=== PATIENT | male | born 1990 | race Caucasian/White ===

== ENCOUNTER 2022-05-13 04:24 | Emergency (ER) | payer MEDICARE, MEDICAID, SELFPAY ==
[2022-05-13 04:31] VITALS: BP 108/64; BP 94/55; PULSE 104; PULSE 116; RESP 16; TEMP 36.8; O2SAT 95; BMI 27.6
== END 2022-05-13 14:36 | disposition left against medical advice (07) ==
LOC: HO.ED 14:00
PROVIDERS: Emergency Provider Emergency Medicine
DX: S39.92XA Unspecified injury of lower back, initial encounter (principal); Y04.8XXA Assault by other bodily force, initial encounter; Y93.9 Activity, unspecified; Y92.410 Unspecified street and highway as the place of occurrence of the external cause; Y99.9 Unspecified external cause status
CPT/HCPCS: 99281

== ENCOUNTER 2022-06-24 19:33 | Emergency (ER) | payer MEDICARE, MEDICAID, SELFPAY ==
--- NOTE | ~2022-06-24 | XR_ITS ---
EXAMINATION: XR ANKLE, RIGHT CLINICAL INFORMATION: Pain. COMPARISON: None TECHNIQUE: AP, lateral, and mortise views of the right ankle. FINDINGS: Soft tissue swelling along the lateral surface of the ankle. No osseous fractures or malalignment. No unexpected radiopaque foreign bodies. XR/XR ankle RT min 3V IMPRESSION: Nonspecific soft tissue swelling in the lateral surface of the ankle. No acute fractures or malalignment.
--- NOTE | 2022-06-24 19:55 | PC.NURSE ---
called x 3 to triage- presumed lwt.
[2022-06-24 20:38] VITALS: BP 108/66; PULSE 86; RESP 18; TEMP 36.1; O2SAT 100; BMI 25.8
--- NOTE | 2022-06-25 00:17 | ED.LOWEXIN ---
HPI - Extremity Injury (Lower) General Chief Complaint: Extremity Injury, Lower Stated Complaint: R ankle sprain, needs psych meds Time Seen by Provider: 06/24/22 22:44 Source: patient Mode of arrival: ambulatory Limitations: no limitations History of Present Illness HPI Narrative: 31-year-old male who presents emergency department for evaluation of injury to his right ankle. Patient states that yesterday he was walking and he rolled his right ankle inward ( inversion injury). He states he developed immediate pain in his right ankle. His right ankle became swollen and black and blue. Patient states he has been able to walk however he is having pain when he walks. He states the pain is a constant, sharp pain which is 8/10 at its worst. Patient states that he is homeless. He did not take any medications for the pain. MD complaint: ankle injury ( Right) Onset (ago): day(s) (1) Injury: Right: ankle Type of Injury: inversion Place: street/outdoors Severity: severe Severity scale (1-10): 8 Relieving factors: nothing Exacerbating factors: nothing Context: walking Associated symptoms: swelling Other symptoms: none Related Data Previous Rx's Medication Instructions Recorded ibuprofen 600 mg tablet 600 mg PO Q6H PRN pain #30 tabs 06/25/22 Allergies Allergy/AdvReac Type Severity Reaction Status Date / Time quetiapine [From SEROQUEL] Allergy Severe ANAPHYLAXIS Unverified 06/23/20 19:08 haloperidol [HALOPERIDOL] Allergy Intermediate SWELLING Unverified 06/23/20 19:08 chlorpromazine Allergy Unknown UNKNOWN Unverified 06/23/20 19:08 [From THORAZINE] Review of Systems Review of Systems: Yes all other systems are reviewed and are negative [facility] Past Medical History [facility] Narrative: past medical history: None. . Past surgical history: None. Social history: Patient is homeless. He denies tobacco use. He occasionally drinks alcohol. Occasionally uses marijuana. Social History Social History Advance Directives: No Physical Exam Vital Signs: Vital Signs: Last Vital Signs Temp 96.9 F 06/24/22 20:38 Pulse 86 06/24/22 20:38 Resp 18 06/24/22 20:38 BP 108/66 06/24/22 20:38 Pulse Ox 100 06/24/22 20:38 O2 Del Method 06/24/22 20:38 BMI result Body Mass Index 25.8 Const: General: cooperative and no acute distress Orientation/consciousness: oriented to person and oriented to place HEENT: Head: Yes normal to inspection, Yes normocephalic and Yes atraumatic Resp: Effort & Inspection: normal respiratory effort Neuro: General: oriented to person and oriented to place Cognition (Neuro): normal cognition Extrem: Other: The patient has ecchymosis and significant soft tissue swelling to the right ankle with increased swelling over the lateral malleolus as opposed to the medial malleolus. Patient has increased tenderness with palpation over the lateral malleolus, his extremities neurovascular intact Course Course Course Narrative: 31-year-old man who presents emergency department for evaluation of injury to his right ankle /inversion injury which occurred 1 day prior to evaluation. Patient has significant soft tissue swelling and ecchymosis to the medial and lateral aspect his ankle, with lateral being greater than medial aspect. Patient's extremities neurovascular intact. X-ray revealed no acute fracture but significant soft tissue swelling. The patient was placed in an ankle boot. He was given printed and verbal instructions. He was prescribed ibuprofen. He was advised to follow-up with orthopedics for re-evaluation. Discharge Plan Discharge Clinical Impression: Ankle sprain and strain Patient Disposition: Home, Self-Care Instructions: Ankle Sprain (ED), Walking Boot (ED) Additional Instructions: The x-ray of your right ankle revealed no broken bones /fractures. You have a severe sprain of your ankle. Wear the ankle boot for 2 weeks. Take ibuprofen 200 mg pills, 3 pills every 6 hours as needed for pain. Follow-up with the orthopedic doctor on-call in 1-2 weeks. Please return to the emergency department if your symptoms get worse or if you develop any symptoms that are concerning to you. Prescriptions: New ibuprofen 600 mg tablet 600 mg PO Q6H PRN (Reason: pain) Qty: 30 0RF Referrals: Delvin Barlow MD [Physician] - 2 weeks ( severe right ankle sprain) Interventions: LWBS Worksheet Last Done: 06/24/22 20:06
== END 2022-06-25 00:48 | disposition home or self-care (01) ==
PROVIDERS: Emergency Provider Emergency Medicine Emergency Medical Services
DX: S93.401A Sprain of unspecified ligament of right ankle, initial encounter (principal); X58.XXXA Exposure to other specified factors, initial encounter; Y93.9 Activity, unspecified; Y92.9 Unspecified place or not applicable; Y99.9 Unspecified external cause status; Z79.899 Other long term (current) drug therapy
CPT/HCPCS: 73610; 99283

== ENCOUNTER 2022-06-27 13:37 | Inpatient (IN) | payer MEDICARE, MEDICAID, SELFPAY ==
[2022-06-27 13:54] VITALS: BP 105/62; PULSE 87; RESP 16; TEMP 36.6; O2SAT 98
[2022-06-27] MEDS: Divalproex Sodium ER 500 MG TAB.ER.24H PO ×2 (15:42→21:43)
[2022-06-27] MEDS: OLANZapine 5 MG TABLET PO (15:42)
[2022-06-27] MEDS: LORazepam 1 MG TABLET PO (15:42)
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
--- NOTE | 2022-06-27 17:18 | PC.NURSE ---
Pt was admitted to M3 from [facility] [place] @ 5523. Signed CV. Pt?s intake reports noncompliance with medication, paranoia, AH/VH/HI, delusions. During assessment, pt was very slow to respond and impatient with questions, wanted to sleep. Unable to complete detailed assessment.? ??Documentation reports pt was on [place] until 06/08/22. COVID: Negative UTOX: +THC. Mood: Depressed; affect restricted, mildly agitated. Makes little eye contact. Insight appears poor. Asking to leave. Substance use: THC recent; cocaine, unsure how recent.? MedHx: Right ankle injury, swelling, ecchymosis. Unable to assess detailed medical history. Placed on high fall risk due to unknown hx. PsycheHx: Paranoid schizophrenia. Depression. Substance abuse includes cannabis and cocaine.? VS recorded at admission: 97.9, 87, 16, 105/62, 87%. ??During assessment pt is not engaged, looking at papers, very slow to respond. Due to MS, unable to complete a detailed assessment.? ??Documentation accompanying pt from [facility] indicates severe hallucinations of violent nature, including constant screaming of massacres; pt believes people are following him and his family and raping them for years. Pt appears to be RTIS. ??One-time zyprexa, depakote, and Ativan administered. ??Pt reports allergies to Haldol, Seroquel, Thorazine and Trazodone. Unable to determine whether these are preferences or actual allergies. Pt sts all allergic reactions are the same: Swollen throat.
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
[2022-06-27 20:10] VITALS: BP 101/62; PULSE 81; RESP 16; TEMP 36.7; O2SAT 98
[2022-06-27] MEDS: OLANZapine 10 MG TABLET PO (21:41)
[2022-06-27] MEDS: LORazepam 1 MG TABLET 2 MG PO (21:41)
[2022-06-28 08:00] VITALS: BP 109/72; PULSE 89; RESP 18; TEMP 36.6; O2SAT 98
[2022-06-28] MEDS: Divalproex Sodium ER 500 MG TAB.ER.24H PO ×2 (08:08→19:53)
[2022-06-28 08:58] LABS: Estimated Average Glucose 88 mg/dL; Hemoglobin A1C 115.4959 umol/L; Hemoglobin A1c % 4.7 %
[2022-06-28 09:02] LABS: Alanine Aminotransferase 28 U/L (0-40); Albumin Level 4.3 g/dL (3.5-5.0); Alkaline Phosphatase 60 U/L (39-117); Anion Gap 15 (12-20); Aspartate Amino Transferase 20 U/L (5-37); Bilirubin Direct 0.3 mg/dL (0.0-0.5); Bilirubin Total 0.5 mg/dL (0.0-1.0); Blood Urea Nitrogen 13 mg/dL (9-16); Carbon Dioxide 28 mmol/L (22-29); Chloride 101 mmol/L (96-108); Cholesterol 125 mg/dL; Estimated Glomerular Filt Rate > 60; Glucose Fasting 85 mg/dL (60-99); HDL Cholesterol 42 mg/dL; LDL Cholesterol Calculated 70 mg/dl; Potassium 4.5 mmol/L (3.3-5.1); Sodium 139 mmol/L (135-145); Total Protein 6.5 g/dL (6.5-8.0); Triglycerides 66 mg/dL
[2022-06-28 09:24] LABS: Free T4 (Free Thyroxine) 1.17 ng/dL (0.71-1.85); Thyroid Stimulating Hormone 2.32 uIU/mL (0.32-4.0)
[2022-06-28 09:38] LABS: Folate 10.4 ng/mL (> or = 4.0); Vitamin B12 408 pg/mL (200-900)
[2022-06-28] MEDS: chlorproMAZINE HCl 100 MG TABLET PO ×2 (14:31→19:53)
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
[2022-06-28] MEDS: LORazepam 1 MG TABLET 2 MG PO ×2 (17:10→19:53)
[2022-06-28] MEDS: Nicotine Polacrilex 2 MG GUM 4 MG BUCCAL ×2 (17:41→20:38)
[2022-06-29] MEDS: Nicotine Polacrilex 2 MG GUM 4 MG BUCCAL ×3 (05:30→16:06)
[2022-06-29] MEDS: chlorproMAZINE HCl 100 MG TABLET PO ×4 (05:30→20:04)
[2022-06-29] MEDS: Divalproex Sodium ER 500 MG TAB.ER.24H PO (09:22)
[2022-06-29 09:27] VITALS: BP 118/75; PULSE 112; RESP 18; TEMP 36.3; O2SAT 100
[2022-06-29] MEDS: Divalproex Sodium 250 MG TABLET.DR PO (13:45)
--- NOTE | 2022-06-29 15:23 | HO.PSYCHPN ---
Subjective Subjective Date of Service: 06/29/22 Reason For Visit: Psychosis Interim History: disorganized and hyper-verbal. willing to increase VPA to 1500 mg. no other changes. per staff, not attending groups. paranoid, nonsensical, pacing. good sleep and appetite. internally preoccupied. wants PRNs of thorazine and VPA. Mental Status Exam Mental Status Exam Narrative: mild agitation. cooperative. PMA of leaning in for emphasis, frequent positional changes. speech incr in rate, amount. nml loudness, tone. decr latency. thoughts loose, digressive, tangential. affect hyper-intense, constricted, non-labile. mood not assessed. no SI/HI/AVH expressed. Diagnostics Vital Signs (24Hr): Vital Signs - 24 hr 06/29/22 09:27 Temperature 97.4 F Pulse Rate 112 H Respiratory Rate 18 Blood Pressure 118/75 Pulse Oximetry 100 Oxygen Delivery Method Room Air Labs Results: 06/28/22 08:02 Labs: Laboratory Results - last 48 hr 06/28/22 06/28/22 06/28/22 08:02 08:02 08:02 Sodium 139 Potassium 4.5 Chloride 101 Carbon Dioxide 28 Anion Gap 15 BUN 13 Creatinine 0.83 Estim Creat Clear Calc TNP Estimated GFR > 60 Fasting Glucose 85 Estimat Average Glucose 88 Hemoglobin A1c % 4.7 Calcium 10.0 Total Bilirubin 0.5 Direct Bilirubin 0.3 AST 20 ALT 28 Alkaline Phosphatase 60 Total Protein 6.5 Albumin 4.3 Triglycerides 66 Cholesterol 125 LDL Cholesterol, Calc 70 HDL Cholesterol 42 Vitamin B12 408 Folate 10.4 TSH 2.32 Free T4 1.17 Medications Medications Current Medications Acetaminophen (Acetaminophen 325 Mg Tablet) 650 mg PO Q6H PRN PRN Reason: Headache/Pain Mild Scale (1-3) Al Hydroxide/Mg Hydroxide (Magnesium Hydrox/Alum Hydrox 30 Ml Oral.Susp) 30 ml PO Q6H PRN PRN Reason: Heartburn/Nausea Chlorpromazine HCl (Chlorpromazine Hcl 100 Mg Tablet) 100 mg PO Q6H PRN PRN Reason: agitation/severe anxiety Last Admin: 06/29/22 05:30 Dose: 100 mg Chlorpromazine HCl (Chlorpromazine Hcl 100 Mg Tablet) 100 mg PO BEDTIME OSKAR Last Admin: 06/29/22 11:26 Dose: 100 mg Divalproex Sodium (Divalproex Sodium Er 250 Mg Tab.Er.24h) 750 mg PO BID OSKAR Lorazepam (Lorazepam 1 Mg Tablet) 2 mg PO BEDTIME OSKAR Last Admin: 06/28/22 19:53 Dose: 2 mg Magnesium Hydroxide (Milk Of Magnesia 30 Ml Oral.Susp) 30 ml PO DAILY PRN PRN Reason: Constipation Nicotine Polacrilex (Nicotine Polacrilex 2 Mg Gum) 4 mg BUCCAL Q2H PRN PRN Reason: Nicotine Cravings Last Admin: 06/29/22 11:26 Dose: 4 mg Allergies Allergies Allergy/AdvReac Type Severity Reaction Status Date / Time quetiapine [From SEROQUEL] Allergy Severe ANAPHYLAXIS Unverified 06/23/20 19:08 haloperidol [HALOPERIDOL] Allergy Intermediate SWELLING Unverified 06/23/20 19:08 Assessment & Plan Assessment & Plan (1) Schizoaffective disorder: Status: Acute Code(s): F25.9 - Schizoaffective disorder, unspecified Plan pt amenable to start ativan, depakote, and zyprexa. asking for help to sleep, so the following regimen was started: ativan 2 mg QHS zyprexa 10 mg QHS depakote 500 mg BID with the understanding that depakote should be titrated up as tolerated/needed. 06/28- d/c olanzapine per pt request. start thorazine 100mg po qhs- prn thorazine 100mg q6h prn agitation. 06/29: increase VPA to 750 BID (from 500 BID). otherwise continue current mgmt. remains disorganized and hyperverbal. I spent ___20___ minutes with the patient and/or on the patient floor today, greater than?50% of which was spent counseling/coordinating care. Reason for contiued inpatient stay Substantial Risk for: inability to function and rapid decompensation
[2022-06-29] MEDS: LORazepam 1 MG TABLET PO (16:21)
[2022-06-29 18:00] VITALS: BP 102/59; PULSE 106; RESP 18; TEMP 36.6; O2SAT 98
[2022-06-29] MEDS: LORazepam 1 MG TABLET 2 MG PO (20:04)
[2022-06-29] MEDS: Divalproex Sodium ER 250 MG TAB.ER.24H 750 MG PO (20:05)
[2022-06-30] MEDS: LORazepam 1 MG TABLET PO ×2 (05:26→16:16)
--- NOTE | 2022-06-30 08:11 | P.PNPSI_ITS ---
Subjective Subjective Date of Service: 06/30/22 Reason For Visit: Psychosis Subjective Notes: Conditional Voluntary and 3 Day Healthcare Proxy: No Guardianship: No Medical Problems Affecting Mental Status: No Interim History: Patient was seen and discussed in rounds today. Records and plans were reviewed. He states that he is doing better. He has been med compliant. He had received his Abilify Maintena on 05/17 and the next dose needs to be considered. He denies any side effects. He does appear to have some response to internal stimuli. Eating and sleeping adequately. No complaints or side effects. No changes were made today. He had some questions about his Ativan ordered which was clarified. No changes were made today Medication Compliance: Yes Side effects from medications: No Review of Systems Review of Systems Yes all other systems are reviewed and are negative Mental Status Exam Mental Status Exam Narrative: In today's visit he is alert, oriented and pleasant. Speech is slightly pressured. Little eye contact. Affect is constricted and appropriate. Some paranoia has been reported and present. No SI/HI. Some delusions reported. Cognitively is intact. Judgment is mostly intact Diagnostics Vital Signs (24Hr): Vital Signs - 24 hr 06/29/22 09:27 06/29/22 18:00 06/30/22 06:00 Temperature 97.4 F 97.9 F 97.4 F Pulse Rate 112 H 106 H 120 H Respiratory Rate 18 18 18 Blood Pressure 118/75 102/59 L 112/68 Pulse Oximetry 100 98 97 Oxygen Delivery Method Room Air Room Air Room Air Labs Results: 06/28/22 08:02 Labs: Laboratory Results - last 48 hr 06/28/22 06/28/22 06/28/22 08:02 08:02 08:02 Sodium 139 Potassium 4.5 Chloride 101 Carbon Dioxide 28 Anion Gap 15 BUN 13 Creatinine 0.83 Estim Creat Clear Calc TNP Estimated GFR > 60 Fasting Glucose 85 Estimat Average Glucose 88 Hemoglobin A1c % 4.7 Calcium 10.0 Total Bilirubin 0.5 Direct Bilirubin 0.3 AST 20 ALT 28 Alkaline Phosphatase 60 Total Protein 6.5 Albumin 4.3 Triglycerides 66 Cholesterol 125 LDL Cholesterol, Calc 70 HDL Cholesterol 42 Vitamin B12 408 Folate 10.4 TSH 2.32 Free T4 1.17 Medications Medications Current Medications Acetaminophen (Acetaminophen 325 Mg Tablet) 650 mg PO Q6H PRN PRN Reason: Headache/Pain Mild Scale (1-3) Al Hydroxide/Mg Hydroxide (Magnesium Hydrox/Alum Hydrox 30 Ml Oral.Susp) 30 ml PO Q6H PRN PRN Reason: Heartburn/Nausea Chlorpromazine HCl (Chlorpromazine Hcl 100 Mg Tablet) 100 mg PO Q6H PRN PRN Reason: agitation/severe anxiety Last Admin: 06/29/22 16:06 Dose: 100 mg Chlorpromazine HCl (Chlorpromazine Hcl 100 Mg Tablet) 100 mg PO BEDTIME OSKAR Last Admin: 06/29/22 20:04 Dose: 100 mg Divalproex Sodium (Divalproex Sodium Er 250 Mg Tab.Er.24h) 750 mg PO BID [facility] Last Admin: 06/29/22 20:05 Dose: 750 mg Lorazepam (Lorazepam 1 Mg Tablet) 2 mg PO BEDTIME [facility] Last Admin: 06/29/22 20:04 Dose: 2 mg Lorazepam (Lorazepam 1 Mg Tablet) 1 mg PO Q4H PRN PRN Reason: agitation Last Admin: 06/30/22 05:26 Dose: 1 mg Magnesium Hydroxide (Milk Of Magnesia 30 Ml Oral.Susp) 30 ml PO DAILY PRN PRN Reason: Constipation Nicotine Polacrilex (Nicotine Polacrilex 2 Mg Gum) 4 mg BUCCAL Q2H PRN PRN Reason: Nicotine Cravings Last Admin: 06/29/22 16:06 Dose: 4 mg Allergies Allergies Allergy/AdvReac Type Severity Reaction Status Date / Time quetiapine [From SEROQUEL] Allergy Severe ANAPHYLAXIS Unverified 06/23/20 19:08 haloperidol [HALOPERIDOL] Allergy Intermediate SWELLING Unverified 06/23/20 19:08 Assessment & Plan Assessment & Plan (1) Schizoaffective disorder: Status: Acute Code(s): F25.9 - Schizoaffective disorder, unspecified Plan pt amenable to start ativan, depakote, and zyprexa. asking for help to sleep, so the following regimen was started: ativan 2 mg QHS zyprexa 10 mg QHS depakote 500 mg BID with the understanding that depakote should be titrated up as tolerated/needed. 06/28- d/c olanzapine per pt request. start thorazine 100mg po qhs- prn thorazine 100mg q6h prn agitation. 06/29: increase VPA to 750 BID (from 500 BID). otherwise continue current mgmt. remains disorganized and hyperverbal. 06/30: Continue current regimen and plans. I spent minutes with the patient and/or on the patient floor today, greater than?50% of which was spent counseling/coordinating care. Reason for contiued inpatient stay Substantial Risk for: med/psych decompensation
[2022-06-30 08:13] VITALS: BP 112/68; PULSE 120; RESP 18; TEMP 36.3; O2SAT 97
[2022-06-30] MEDS: Nicotine Polacrilex 2 MG GUM 4 MG BUCCAL ×3 (08:32→23:31)
[2022-06-30] MEDS: chlorproMAZINE HCl 100 MG TABLET PO ×4 (08:32→20:56)
[2022-06-30] MEDS: Divalproex Sodium ER 250 MG TAB.ER.24H 750 MG PO ×2 (08:36→20:55)
[2022-06-30] MEDS: Acetaminophen 325 MG TABLET 650 MG PO (16:16)
[2022-06-30 20:10] VITALS: BP 114/71; PULSE 103; RESP 16; TEMP 36.8; O2SAT 95
[2022-06-30] MEDS: LORazepam 1 MG TABLET 2 MG PO (20:56)
[2022-07-01] MEDS: Acetaminophen 325 MG TABLET 650 MG PO (05:49)
[2022-07-01] MEDS: chlorproMAZINE HCl 100 MG TABLET PO ×3 (05:49→21:48)
[2022-07-01] MEDS: LORazepam 1 MG TABLET PO ×2 (05:49→17:34)
[2022-07-01] MEDS: Divalproex Sodium ER 250 MG TAB.ER.24H 750 MG PO ×2 (09:05→21:01)
[2022-07-01 09:07] VITALS: BP 106/64; PULSE 105; RESP 16; TEMP 36.6; O2SAT 98
--- NOTE | 2022-07-01 09:45 | P.PNPSI_ITS ---
Subjective Subjective Date of Service: 07/01/22 Reason For Visit: Psychosis Subjective Notes: Conditional Voluntary and 3 Day Healthcare Proxy: No Guardianship: No Medical Problems Affecting Mental Status: No Interim History: Patient was seen and discussed in rounds today. Records and plans were reviewed. He has been stable and is doing better. He has been somewhat irritable at times but able to control it. Some episodes of anger. Current medications were reviewed. He denies any side effects. He also had recently injured his right ankle and has soft cast which he lost. I will put a PT consult to address that. Medication Compliance: Yes Side effects from medications: No Review of Systems Review of Systems Right ankle injury Yes all other systems are reviewed and are negative Mental Status Exam Mental Status Exam Narrative: In today's visit he is alert, oriented and pleasant. Speech is slightly pressured. Little eye contact. Affect is constricted and appropriate. Some paranoia has been reported and present. No SI/HI. Some delusions reported. Cognitively is intact. Judgment is mostly intact Diagnostics Vital Signs (24Hr): Vital Signs - 24 hr 06/30/22 20:10 07/01/22 09:07 Temperature 98.2 F 97.8 F Pulse Rate 103 H 105 H Respiratory Rate 16 16 Blood Pressure 114/71 106/64 Pulse Oximetry 95 98 Oxygen Delivery Method Room Air Room Air Labs Results: 06/28/22 08:02 Medications Medications Current Medications Acetaminophen (Acetaminophen 325 Mg Tablet) 650 mg PO Q6H PRN PRN Reason: Headache/Pain Mild Scale (1-3) Last Admin: 07/01/22 05:49 Dose: 650 mg Al Hydroxide/Mg Hydroxide (Magnesium Hydrox/Alum Hydrox 30 Ml Oral.Susp) 30 ml PO Q6H PRN PRN Reason: Heartburn/Nausea Chlorpromazine HCl (Chlorpromazine Hcl 100 Mg Tablet) 100 mg PO Q6H PRN PRN Reason: agitation/severe anxiety Last Admin: 07/01/22 05:49 Dose: 100 mg Chlorpromazine HCl (Chlorpromazine Hcl 100 Mg Tablet) 100 mg PO BEDTIME [facility] Last Admin: 06/30/22 20:56 Dose: 100 mg Divalproex Sodium (Divalproex Sodium Er 250 Mg Tab.Er.24h) 750 mg PO BID [facility] Last Admin: 07/01/22 09:05 Dose: 750 mg Lorazepam (Lorazepam 1 Mg Tablet) 2 mg PO BEDTIME [facility] Last Admin: 06/30/22 20:56 Dose: 2 mg Lorazepam (Lorazepam 1 Mg Tablet) 1 mg PO Q4H PRN PRN Reason: agitation Last Admin: 07/01/22 05:49 Dose: 1 mg Magnesium Hydroxide (Milk Of Magnesia 30 Ml Oral.Susp) 30 ml PO DAILY PRN PRN Reason: Constipation Nicotine Polacrilex (Nicotine Polacrilex 2 Mg Gum) 4 mg BUCCAL Q2H PRN PRN Reason: Nicotine Cravings Last Admin: 06/30/22 23:31 Dose: 4 mg Allergies Allergies Allergy/AdvReac Type Severity Reaction Status Date / Time quetiapine [From SEROQUEL] Allergy Severe ANAPHYLAXIS Unverified 06/23/20 19:08 haloperidol [HALOPERIDOL] Allergy Intermediate SWELLING Unverified 06/23/20 19:08 Assessment & Plan Assessment & Plan (1) Schizoaffective disorder: Status: Acute Code(s): F25.9 - Schizoaffective disorder, unspecified Plan pt amenable to start ativan, depakote, and zyprexa. asking for help to sleep, so the following regimen was started: ativan 2 mg QHS zyprexa 10 mg QHS depakote 500 mg BID with the understanding that depakote should be titrated up as tolerated/needed. 06/28- d/c olanzapine per pt request. start thorazine 100mg po qhs- prn thorazine 100mg q6h prn agitation. 06/29: increase VPA to 750 BID (from 500 BID). otherwise continue current mgmt. remains disorganized and hyperverbal. 06/30: Continue current regimen and plans. 07/01: Continue current regimen and plans. PT consult I spent minutes with the patient and/or on the patient floor today, greater than?50% of which was spent counseling/coordinating care. Reason for contiued inpatient stay Substantial Risk for: med/psych decompensation
[2022-07-01] MEDS: Nicotine Polacrilex 2 MG GUM 4 MG BUCCAL ×2 (16:40→21:48)
[2022-07-01] MEDS: LORazepam 1 MG TABLET 2 MG PO (21:01)
[2022-07-02] MEDS: LORazepam 1 MG TABLET PO ×2 (03:00→21:21)
[2022-07-02] MEDS: Divalproex Sodium ER 250 MG TAB.ER.24H 750 MG PO ×2 (08:40→21:09)
[2022-07-02 09:25] VITALS: BP 112/62; PULSE 101; RESP 14; TEMP 36.8; O2SAT 97
[2022-07-02] MEDS: Nicotine Polacrilex 2 MG GUM 4 MG BUCCAL ×2 (11:59→14:13)
--- NOTE | 2022-07-02 12:43 | P.PNPSI_ITS ---
Subjective Subjective Date of Service: 07/02/22 Reason For Visit: Psychosis Interim History: 3-day up tomorrow, planning to discharge. feels his medications are good as they are aside from getting off of ativan prior to discharge. agrees to decrease HS ativan to 1 mg tonight. agreeable to have labs drawn tomorrow as well. some c/o sleeping too much. states he is sleeping well through the night. mood good. per staff, 3-day up tomorrow. feeling well. denies AVH. RIS. wants to DC tomorrow. eating well. Mental Status Exam Mental Status Exam Narrative: calm, cooperative. no PMA/PMR. speech incr in rate, nml amount. nml loudness, tone. decr latency. thoughts more organized and topical. affect normo- intense, constricted, non-labile. mood good. no SI/HI/AVH expressed. Diagnostics Vital Signs (24Hr): Vital Signs - 24 hr 07/02/22 09:25 Temperature 98.2 F Pulse Rate 101 H Respiratory Rate 14 Blood Pressure 112/62 Pulse Oximetry 97 Oxygen Delivery Method Room Air Labs Results: 06/28/22 08:02 Medications Medications Current Medications Acetaminophen (Acetaminophen 325 Mg Tablet) 650 mg PO Q6H PRN PRN Reason: Headache/Pain Mild Scale (1-3) Last Admin: 07/01/22 05:49 Dose: 650 mg Al Hydroxide/Mg Hydroxide (Magnesium Hydrox/Alum Hydrox 30 Ml Oral.Susp) 30 ml PO Q6H PRN PRN Reason: Heartburn/Nausea Chlorpromazine HCl (Chlorpromazine Hcl 100 Mg Tablet) 100 mg PO Q6H PRN PRN Reason: agitation/severe anxiety Last Admin: 07/01/22 21:48 Dose: 100 mg Chlorpromazine HCl (Chlorpromazine Hcl 100 Mg Tablet) 100 mg PO BEDTIME [facility] Last Admin: 07/01/22 21:02 Dose: 100 mg Divalproex Sodium (Divalproex Sodium Er 250 Mg Tab.Er.24h) 750 mg PO BID [facility] Last Admin: 07/02/22 08:40 Dose: 750 mg Lorazepam (Lorazepam 1 Mg Tablet) 1 mg PO BEDTIME [facility] Lorazepam (Lorazepam 0.5 Mg Tablet) 0.5 mg PO Q4H PRN PRN Reason: agitation Magnesium Hydroxide (Milk Of Magnesia 30 Ml Oral.Susp) 30 ml PO DAILY PRN PRN Reason: Constipation Nicotine Polacrilex (Nicotine Polacrilex 2 Mg Gum) 4 mg BUCCAL Q2H PRN PRN Reason: Nicotine Cravings Last Admin: 07/02/22 11:59 Dose: 4 mg Allergies Allergies Allergy/AdvReac Type Severity Reaction Status Date / Time quetiapine [From SEROQUEL] Allergy Severe ANAPHYLAXIS Unverified 06/23/20 19:08 haloperidol [HALOPERIDOL] Allergy Intermediate SWELLING Unverified 06/23/20 1 9:08 Assessment & Plan Assessment & Plan (1) Schizoaffective disorder: Status: Acute Code(s): F25.9 - Schizoaffective disorder, unspecified Plan pt amenable to start ativan, depakote, and zyprexa. asking for help to sleep, so the following regimen was started: ativan 2 mg QHS zyprexa 10 mg QHS depakote 500 mg BID with the understanding that depakote should be titrated up as tolerated/needed. 06/28- d/c olanzapine per pt request. start thorazine 100mg po qhs- prn thorazine 100mg q6h prn agitation. 06/29: increase VPA to 750 BID (from 500 BID). otherwise continue current mgmt. remains disorganized and hyperverbal. 06/30: Continue current regimen and plans. 07/01: Continue current regimen and plans. 07/02: taper ativan prior to discharge (1 mg tonight instead of 2 mg). check labs in a.m. discharge tomorrow as 3-day notice is up and pt is not dangerous. I spent __20____ minutes with the patient and/or on the patient floor today, greater than?50% of which was spent counseling/coordinating care. Reason for contiued inpatient stay Substantial Risk for: inability to function and rapid decompensation
[2022-07-02 21:02] VITALS: BP 121/77; PULSE 104; RESP 16; TEMP 36.2; O2SAT 97
[2022-07-02] MEDS: chlorproMAZINE HCl 100 MG TABLET PO (21:21)
[2022-07-03] MEDS: Nicotine Polacrilex 2 MG GUM 4 MG BUCCAL (01:24)
[2022-07-03 08:15] VITALS: PULSE 115; RESP 18; TEMP 36.2; O2SAT 97
[2022-07-03 08:56] LABS: MANUAL DIFF FLAG NO
[2022-07-03 09:00] LABS: Basophils Absolute Auto 0.1 X10*3/uL (0.0-0.2); Basophils Percent Auto 0.6 % (0-2); Eosinophils Absolute Auto 0.3 X10*3/uL (0.0-0.4); Eosinophils Percent Auto 3.2 % (0-4); Hematocrit 45.3 % (42.0-52.0); Hemoglobin 15.5 g/dl (14.0-18.0); Imm Gran Abs Auto 0.11 X10*3/uL (0.00-0.03); Imm Gran Pct Auto 1.2 % (0.0-0.4); Lymphocytes Absolute Auto 1.9 X10*3/uL (1.2-4.9); Lymphocytes Percent Auto 20.1 % (20-40); Mean Corpuscular HGB Conc 34.2 g/dl (31.0-36.0); Mean Corpuscular Volume 90.6 fL (80.0-98.0); Mean Platelet Volume 10.4 fL (9.4-12.4); Monocytes Absolute Auto 0.9 X10*3/uL (0.1-1.2); Monocytes Percent Auto 9.2 % (2-11); Neutrophils Absolute Auto 6.2 x10*3/uL (2.0-8.3); Neutrophils Percent Auto 65.7 % (45-73); Platelet Count 210 X10*3/uL (160-400); White Blood Count 9.4 X10*3/uL (4.8-10.8)
[2022-07-03 09:25] LABS: Alanine Aminotransferase 85 U/L (0-40); Albumin Level 4.6 g/dL (3.5-5.0); Alkaline Phosphatase 69 U/L (39-117); Anion Gap 17 (12-20); Aspartate Amino Transferase 74 U/L (5-37); Bilirubin Direct 0.2 mg/dL (0.0-0.5); Bilirubin Total 0.2 mg/dL (0.0-1.0); Blood Urea Nitrogen 12 mg/dL (9-16); Calcium 10.1 mg/dL (8.4-10.2); Carbon Dioxide 28 mmol/L (22-29); Chloride 100 mmol/L (96-108); Estimated Glomerular Filt Rate > 60; Glucose Random 89 mg/dL (60-115); Potassium 4.8 mmol/L (3.3-5.1); Sodium 140 mmol/L (135-145)
[2022-07-03 09:59] LABS: Valproate 60.9 mcg/mL (50.0-100.0)
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
[2022-07-03] MEDS: Divalproex Sodium ER 250 MG TAB.ER.24H 750 MG PO (10:43)
--- NOTE | 2022-07-03 11:36 | PC.NURSE ---
Pt. discharged from unit, with belongings.He verbalized understanding of discharge meds and appointments. He denies any suicidal or homicidal ideation.
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
--- OUTSIDE RECORDS SUMMARY | 2022-07-04 13:56 | XMS_ITS | Continuity of Care Document ---
:1990 Author Organization [facility] Address [address] [place] [address]- Care Team Providers Name Role Phone Leslie Garcia MD Primary Care Physician Encounter [facility] Date(s): 03/13/22 - 03/13/22 [facility] [address] [place] [id number]- Encounter Diagnosis Homelessness (Final) - 03/13/22 Discharge Disposition: A-D/C Home Attending Physician: Bertin Mccarthy MD Admitting Physician: Bertin Mccarthy MD Referring Physician: Not on Staff, Referring MD Allergies, Adverse Reactions, Alerts Substance Reaction Severity Status Haldol Active SEROquel Active traZODone Active Immunizations Given and Recorded Vaccine Date Status Refusal Reason SARS-CoV-2 (COVID-19) mRNA BNT-162b2 vac 12/05/20 Recorde d Not Given Vaccine Date Status Refusal Reason pneumococcal 23-valent vaccine 08/10/17 Not Given P atient Refuses pneumococcal 23-valent vaccine 06/03/17 Not Given P atient Refuses pneumococcal 23-valent vaccine 01/21/17 Not Given P atient Refuses Medications Abilify Maintena 300 mg intramuscular injection, extended release = 300 mg, Intramuscular, Every 28 days, 0 Refills, Maintenance, 08/03/21 8:53:00 EDT, Partial fill upon patient request if the prescription is for a schedule II opioid drug. Start Date: 08/03/21 Status: OrderedAbilify Maintena 300 mg intramuscular injection, extended release 0 Refills, Maintenance, 01/05/21 9:52:00 EDT, Partial fill upon patient request if the prescription is for a schedule II opioid drug. Start Date: 01/05/21 Status: Orderedbenztropine 1 mg oral tablet 1 mg, 1, tablet, By Mouth, 2 times a day, Blister pack, # 14 tablet, Refills 0, Tot. Refills 0, Maintenance, 01/26/22 10:53:00 EDT, Route to Pharmacy Electronically, [facility], Partial fill upon patient request if the prescription is for a... Start Date: 01/26/22 Stop Date: 02/02/22 Status: Orderedbenztropine 1 mg oral tablet TAKE 1 TABLET BY MOUTH TWICE A DAY Start Date: 01/05/21 Status: Orderedclozapine 100 mg oral tablet 1 tablet = 100 mg, By Mouth, Daily at bedtime, 0 Refills, Maintenance, 08/03/21 8:51:00 EDT, Partialfill upon patient request if the prescription is for a schedule II opioid drug. Start Date: 08/03/21 Status: Orderedclozapine 200 mg oral tablet 2 tablet = 400 mg, take with 100 mg for 500 mg total, 0 Refills, Maintenance, 08/03/21 8:51:00 EDT, Partial fill upon patient request if the prescription is for a schedule II opioid drug. Start Date: 08/03/21 Status: Orderedclozapine 200 mg oral tablet 2.5 tablet = 500 mg, By Mouth, Daily at bedtime, Blister pack, # 17.5 tablet, 0 Refills, Maintenance, 01/26/22 10:53:00 EDT, Tablet, [facility], Partial fill upon patient request if the prescription is for a schedule II opioid drug., 180, cm... Start Date: 01/26/22 Stop Date: 02/02/22 Status: Ordereddivalproex sodium 500 mg oral enteric coated tablet = 1,000 mg, By Mouth, Daily at bedtime, Blister pack, # 14 tablet, 0 Refills, Maintenance, 01/26/22 10:53:00 EDT, Tablet, [facility], Partial fill upon patient request if the prescription is for a schedule II opioid drug., 180, cm, 01/26/22... Start Date: 01/26/22 Stop Date: 02/02/22 Status: Ordereddivalproex sodium 500 mg oral tablet, extended release 2 tablet = 1,000 mg, By Mouth, Daily at bedtime, # 30 tablet, 0 Refills, Maintenance, 01/05/21 9:52:00 EDT, ER Tablet, Partial fill upon patient request if the prescription is for a schedule II opioid drug. Start Date: 01/05/21 Status: Orderedlevothyroxine 0.025 mg oral tablet 1 tablet, By Mouth, Daily, # 30 tablet, 11 Refills, Maintenance, 03/07/21 10:59:00 EDT, [id number], 180.34, cm, 12/15/20 8:00:00 EST, Height Start Date: 03/07/21 Status: OrderedMelatonin 3 mg oral tablet 1 tablet = 3 mg, By Mouth, Daily at bedtime, # 60 tablet, 0 Refills, Maintenance, 08/03/21 8:50:00 EDT, Tablet, Partial fill upon patient request if the prescription is for a schedule II opioid drug. Start Date: 08/03/21 Status: OrderedNarcan 4 mg/0.1 mL nasal spray = 4 mg, Nares, Both, Once, # 2 each, 0 Refills, Soft Stop, 01/05/21 9:56:00 EDT, [id number],Partial fill upon patient request if the prescription is for a schedule II opioid drug., 180.34, cm,12/15/20 8:00:00 EST, Height Start Date: 01/05/21 Status: Orderedolanzapine 10 mg oral tablet 10 mg, 1, tablet, By Mouth, 2 times a day, # 60 tablet, Refills 0, Maintenance, 08/03/21 8:52:00 EDT, Partial fill upon patient request if the prescription is for a schedule II opioid drug. Start Date: 08/03/21 Status: Orderedolanzapine 10 mg oral tablet 10 mg, 1, tablet, By Mouth, Daily, Blister Pack, # 7 tablet, Refills 0, Tot. Refills 0, Maintenance,01/26/22 10:53:00 EDT, Route to Pharmacy Electronically, [facility], Partial fill upon patient request if the prescription is for a schedule... Start Date: 01/26/22 Stop Date: 02/02/22 Status: Orderedolanzapine 20 mg oral tablet 1 tablet = 20 mg, By Mouth, Daily at bedtime, # 30 tablet, 0 Refills, Maintenance, 01/05/21 9:52:00 EDT, Tablet, Partial fill upon patient request if the prescription is for a schedule II opioid drug. Start Date: 01/05/21 Status: Orderedomeprazole 20 mg oral enteric coated capsule 1 capsule = 20 mg, By Mouth, Daily, # 14 capsule, 0 Refills, Maintenance, 08/22/21 23:09:00 EST, EC Capsule, [facility], Partial fill upon patient request if the prescription is for a schedule II opioid drug., 180.34, cm, 08/03/21 8:11:00 ED... Start Date: 08/22/21 Stop Date: 09/05/21 Status: Orderedpropranolol 10 mg oral tablet 10 mg, 1, tablet, By Mouth, 2 times a day, take twice daily for 1 month then stop propanolol completely, # 60 tablet, Refills 0, Tot. Refills 0, Maintenance, 08/18/21 11:51:00 EST, Route to Pharmacy Electronically, [facility], Partial fill u... Start Date: 08/18/21 Status: Ordered Problem List Condition Effective Dates Status Health Status Informant Antisocial personality Active features(Confirmed) Cannabis dependence with current Active use(Confirmed) Cocaine use disorder(Confirmed) Active Hypothyroid(Confirmed) Active Lives in fdc - Active [facility](Confirmed) Violent behavior(Confirmed) Active Vital Signs Most recent to oldest [Reference Range]: 1 2 Oxygen Saturation [94-100 %] 96 % 94 % (03/13/22 4:35 AM) (03/13/22 12:56 AM) Pulse Rate [55-90 bpm] 72 bpm 66 bpm (03/13/22 4:35 AM) (03/13/22 12:56 AM) Blood Pressure [90-138/55-84 mm Hg] 112/60 mm Hg 109/ 54 mm Hg (03/13/22 4:35 AM) (03/13/22 12:56 AM) Respiratory Rate [16-30 br/min] 16 br/min 16 br/mi n (03/13/22 4:35 AM) (03/13/22 12:56 AM) Temperature [96.8-100.4 DegF] 98.0 DegF 97.6 DegF (03/13/22 4:35 AM) (03/13/22 12:56 AM) Mode of Delivery (Oxygen) Room air Room air (03/13/22 4:35 AM) (03/13/22 12:56 AM) Blood pressure sites Arm, left (03/13/22 12:56 AM) Temperature Route Oral Oral (03/13/22 4:35 AM) (03/13/22 12:56 AM) Social History Social History Type Response Tobacco Other: 2-3 cigarettes per da y. Type: Cigarettes. Sex Male
--- OUTSIDE RECORDS SUMMARY | 2022-07-04 13:56 | XMS_ITS | Continuity of Care Document ---
:1990 Author Organization [facility] Address [address] [place] [address]- Care Team Providers Name Role Phone Bloom Rose YAÑEZ Primary Care Physician En[place] [facility] Date(s): 06/25/22 - 06/27/[address] [address]- Discharge Disposition: Transfer to [facility] Facility Attending Physician: Aly Ward MD Admitting Physician: Aly Ward MD Referring Physician: Not on Staff, Referring [...] 01/21/17 Not Given P atient Refuses Medications levothyroxine 0.025 mg oral tablet 1 tablet = 25 mcg, By Mouth, Daily, # 30 tablet, 0 Refills, Maintenance, 06/18/22 14:24:00 EDT, Tablet, [id number], Partial fill upon patient request if the prescription is for a schedule II opioid drug., 175, cm, 06/07/22 19:36:00 EDT, Height... Start Date: 06/18/22 Status: Orderedolanzapine 10 mg oral tablet 10 mg, 1, tablet, By Mouth, Daily at bedtime, # 30 tablet, Refills 0, Tot. Refills 0, Maintenance, 05/31/22 12:15:00 EDT, Route to Pharmacy Electronically, [facility], Partial fill upon patient request if the prescription is for a schedu... Start Date: 05/31/22 Status: Orderedolanzapine 5 mg oral tablet See Instructions, 1 tablet By Mouth Daily in the morning, 2 tablets daily before bedtime, # 90 tablet, Refills 0, Tot. Refills 0, Maintenance, 06/18/22 14:24:00 EDT, Instructions Replace Required Details, Route to Pharmacy Electronically, [facility]/pharmacy... Start Date: 06/18/22 Status: Ordered Problem List Condition Effective Dates Status Health Status Informant Antisocial personality Active features(Confirmed) Cannabis dependence with current Active use(Confirmed) Cocaine use disorder(Confirmed) Active Hypothyroid(Confirmed) Active Lives in penitentiary - Active [facility](Confirmed) Violent behavior(Confirmed) Active Results Radiology Reports Exam Date Time Procedure Performing Provider Status 06/25/22 9:10 PM Ankle Min 3 Views Right Johnny Walker; Auth (V erified) Notes:(Ankle Min 3 Views Right) Reason For Exam: PainRESULT: Ankle Min 3 Views Right Right ankle 3 views Hx of Present Illness: R ankle pain discoloration post injury 2 days ago continues, [facility]ast [facility] today. No additional injury; COMPARISON: None. FINDINGS: No evidence of acute or healing fracture or bone lesion. Intact ankle mortise and talar dome. No arthritic changes. Normal soft tissues. IMPRESSION: Normal. WSN: [id number] Ordering Physician: Aly Ward Dictated By: Diaz Delgado MD Dictated Date/Time: 06/25/22 9:27 pm Reviewed By: Diaz Delgado MD Signed By: Diaz Delgado MD Signed Date/Time: 06/25/22 9:27 pm Transcribed By: ASTON Transcribed Date/Time: 06/25/22 9:25 pm Vital Signs Most recent to oldest 1 2 3 [Reference Range]: Height 175 cm (06/25/22 7:40 PM) Weight 73.8 kg (06/25/22 7:40 PM) Oxygen Saturation [94-100 %] 98 % 97 % 97 % (06/27/22 9:17 AM) (06/26/22 8:49 AM) (06/26/22 2:3 4 AM) Pulse Rate [55-90 bpm] 104 bpm 73 bpm 83 bpm *H* (06/26/22 8:49 AM) (06/26/22 2:34 AM) (06/27/22 9:17 AM) Blood Pressure [90-138/55-84 mm 111/80 mm Hg 108/55 mm Hg 102/59 mm Hg Hg] (06/27/22 9:17 AM) (06/26/22 8:49 AM) (06/26/22 2:3 4 AM) Respiratory Rate [16-30 br/min] 18 br/min 16 br/min 16 br/min (06/27/22 9:17 AM) (06/27/22 6:06 AM) (06/26/22 8:4 9 AM) Temperature [96.8-100.4 DegF] 97.6 DegF 98.6 DegF 97 DegF (06/27/22 9:17 AM) (06/26/22 8:49 AM) (06/26/22 2:3 4 AM) Mode of Delivery (Oxygen) Room air Room air Room a ir (06/27/22 9:17 AM) (06/26/22 8:49 AM) (06/26/22 2:3 4 AM) Temperature Route Temporal Temporal Oral (06/27/22 9:17 AM) (06/26/22 8:49 AM) (06/26/22 2:0 0 AM) Dry Weight 73.8 kg (06/25/22 7:40 PM) Weight Obtained Via Standing scale (06/25/22 7:40 PM) Social History Social History Type Response Tobacco Other: 2-3 cigarettes per da y. Type: Cigarettes. Sex XR Ankle - right GE 3 Views BHSPowerscribe , CIS S: TRANSCRIBE Danny SAVAGE, Diaz: VERIFY Event Display: Result: Authored Date: Right ankle 3 views Hx of Present Illness: R ankle pain discoloration post injury 2 days ago continues, aircast providedat [facility] today. No additional injury; COMPARISON: None. FINDINGS: No evidence of acute or healing fracture or bone lesion. Intact ankle mortise and talar dome. No arthritic changes. Normal soft tissues. IMPRESSION: Normal. WSN: [id number] Ordering Physician: Aly Ward By: Diaz Delgado MD Dictated Date/Time: 06/25/22 9:27 pm Reviewed By: Diaz Delgado MD Signed By: Diaz Delgado MD Signed Date/Time: 06/25/22 9:27 pm Transcribed By: ASTON Transcribed Date/Time: 06/25/22 9:25 pm Care Team PersonnelName: Rose Bloom DO Address: [address] [place] [address]
--- OUTSIDE RECORDS SUMMARY | 2022-07-04 13:56 | XMS_ITS | Continuity of Care Document ---
:1990 Author Organization [facility] Address [address] [place] [address]- Care Team Providers Name Role Phone Vivien Flores DO Primary Care [id number] Date[facility] 12[facility]24/[facility] - 12/24/[address] [address]- Discharge Disposition: A-D/C Home Attending Physician: Linda Colin MD Admitting Physician: Linda Colin MD Referring Physician: Not on Staff, Referring MD Allergies, Adverse Reactions, Alerts Substance Reaction Severity Status Haldol Active traZODone Active SEROquel Active Immunizations Not Given Vaccine Date Status Refusal Reason pneumococcal 23-valent vaccine 08/10/17 Not Given P atient Refuses pneumococcal 23-valent vaccine 06/03/17 Not Given P atient Refuses pneumococcal 23-valent vaccine 01/21/17 Not Given P atient Refuses Medications Ativan 1 mg oral tablet = 1 mg, By Mouth, Every 6 hours, PRN Agitation, Agitation regimen: Please give in combo with Thorazine, 0 Refills, Maintenance, 08/11/17 20:53:00, Tablet Start Date: 08/11/17 Status: OrderedchlorproMAZINE 100 mg oral tablet = 100 mg, By Mouth, 3 times a day, 0 Refills, Maintenance, 08/11/17 20:52:14, Tablet Start Date: 08/11/17 Status: OrderedchlorproMAZINE 100 mg oral tablet = 100 mg, By Mouth, 3 times a day, PRN Agitation, Agitation regimen: Please give in combo with Ativan, 0 Refills, Maintenance, 08/11/17 20:52:24, Tablet Start Date: 08/11/17 Status: Ordereddivalproex sodium 500 mg oral tablet, extended release = 1,500 mg, By Mouth, Daily at bedtime, 0 Refills, Maintenance, 08/11/17 20:52:44, ER Tablet Start Date: 08/11/17 Status: Orderedibuprofen 400 mg oral tablet 400 mg, By Mouth, 3 times a day, PRN, Refills 0, Maintenance, Pain , Mild, 08/11/17 20:52:47 Start Date: 08/11/17 Status: OrderedNicotine Gum 2 mg, Chew, Every hour, PRN, cigarette craving, Refills 0, Maintenance, Other, 08/11/17 20:53:06 Start Date: 08/11/17 Status: OrderedOrajel 10% Gel 1, applicator, Topically, Every 4 hours, PRN, Refills 0, Maintenance, Pain , Mild, 08/11/17 20:52:42, Gel Start Date: 08/11/17 Status: Orderedpaliperidone 234 mg/1.5 mL intramuscular suspension, extended release = 234 mg, Intramuscular, Every 28 days, due 08/29/2017, 0 Refills, Maintenance, 08/11/17 20:49:55 Start Date: 08/11/17 Status: Ordered Problem List Condition Effective Dates Status Health Status Informant Antisocial personality Active features(Confirmed) Cannabis dependence with current Active use(Confirmed) Cocaine use disorder(Confirmed) Active Lives in [facility] - Active [facility](Confirmed) Violent behavior(Confirmed) Active Vital Signs Most recent to oldest 1 2 3 [Reference Range]: Oxygen Saturation [94-100 %] 97 % 97 % 96 % (12/24/20 2:14 PM) (12/24/20 12:41 PM) (12/24/20 11 :12 AM) Pulse Rate [55-90 bpm] 106 bpm 98 bpm 103 bpm *H* *H* *H* (12/24/20 2:14 PM) (12/24/20 12:41 PM) (12/24/20 11 :12 AM) Blood Pressure [90-138/55-84 121/74 mm Hg 103/62 mm Hg 105 /59 mm Hg mm Hg] (12/24/20 2:14 PM) (12/24/20 12:41 PM) (12/24/20 11 :12 AM) Respiratory Rate [16-30 18 br/min 18 br/min 18 br/mi n br/min] (12/24/20 2:14 PM) (12/24/20 12:41 PM) (12/24/20 11 :12 AM) Temperature [96.8-100.4 DegF] 98.5 DegF (12/24/20 9:12 AM) Mode of Delivery (Oxygen) Room air Room air Room a ir (12/24/20 2:14 PM) (12/24/20 12:41 PM) (12/24/20 11 :12 AM) Blood pressure sites Arm, left Arm, left Arm, left (12/24/20 2:14 PM) (12/24/20 12:41 PM) (12/24/20 11 :12 AM) Temperature Route Oral (12/24/20 9:12 AM) Social History Social History Type Response Tobacco Other: 2-3 cigarettes per da y. Type: Cigarettes. Sex Male
--- OUTSIDE RECORDS SUMMARY | 2022-07-04 13:56 | XMS_ITS | Continuity of Care Document ---
:1990 Author Organization [facility] Address [address] [place] [address]- Care Team Providers Name Role Phone Rose Bloom DO Primary Care Physician Encounter [facility] Date(s): 05/19/22 - 05/31/22 [facility] [address] [place] [id number] Discharge Disposition: A-D/C Home Attending Physician: Verito Avendano DO Admitting Physician: Junior Jones MD Referring Physician: Junior Jones MD Allergies, Adverse Reactions, Alerts Substance Reaction [...] Medications levothyroxine 0.025 mg oral tablet 1 tablet, By Mouth, Daily, # 30 tablet, 0 Refills, Maintenance, 05/31/22 12:15:00 EDT, [facility], 170, cm, 05/31/22 11:43:00 EDT, Height, 71.6, kg, 05/18/22 13:23:00 EDT, Dry Weight Start Date: 05/31/22 Status: Orderedolanzapine 10 mg oral tablet 10 mg, 1, tablet, By Mouth, Daily at bedtime, # 30 tablet, Refills 0, Tot. Refills 0, Maintenance, 05/31/22 12:15:00 EDT, Route to Pharmacy Electronically, [facility], Partial fill upon patient request if the prescription is for a schedu... Start Date: 05/31/22 Status: Orderedolanzapine 5 mg oral tablet 5 mg, 1, tablet, By Mouth, Daily in AM, # 30 tablet, Refills 0, Tot. Refills 0, Maintenance, 05/31/22 12:15:00 EDT, Route to Pharmacy Electronically, [facility], Partial fill upon patientrequest if the prescription is for a schedule II... Start Date: 05/31/22 Status: Ordered Problem List Condition Effective Dates Status Health Status Informant Antisocial personality Active features(Confirmed) Cannabis dependence with current Active use(Confirmed) Cocaine use disorder(Confirmed) Active Hypothyroid(Confirmed) Active Lives in [facility]dc - Active [facility](Confirmed) Violent behavior(Confirmed) Active Vital Signs Most recent to oldest 1 2 3 [Reference Range]: Height 170 cm 170 cm 170 cm (05/31/22 11:43 AM) (05/31/22 6:00 AM) (05/31/22 12 :00 AM) Weight 74.1 kg (05/19/22 3:00 PM) Oxygen Saturation [94-100 %] 97 % 99 % 98 % (05/31/22 11:43 AM) (05/31/22 6:00 AM) (05/31/22 12 :00 AM) Pulse Rate [55-90 bpm] 85 bpm 76 bpm 87 bpm (05/31/22 11:43 AM) (05/31/22 6:00 AM) (05/31/22 12 :00 AM) Blood Pressure [90-138/55-84 97/58 mm Hg 105/55 mm Hg 117 /75 mm Hg mm Hg] (05/31/22 11:43 AM) (05/31/22 6:00 AM) (05/31/22 12 :00 AM) Respiratory Rate [16-30 14 br/min 18 br/min 18 br/mi n br/min] *L* (05/31/22 6:00 AM) (05/31/22 12:00 AM) (05/31/22 11:43 AM) Temperature [96.8-100.4 DegF] 98.7 DegF 97.6 DegF 98 .2 DegF (05/31/22 11:43 AM) (8/25/22 6:00 AM) (05/31/22 12 :00 AM) Liters per Minute 4 L/min (05/19/22 6:40 PM) Mode of Delivery (Oxygen) Room air Room air Room a ir (05/31/22 11:43 AM) (05/31/22 6:00 AM) (05/31/22 12 :00 AM) Blood pressure sites Arm, left Arm, left Arm, left (05/31/22 11:43 AM) (05/31/22 6:00 AM) (05/31/22 12 :00 AM) Temperature Route Oral Oral Axillary (05/31/22 11:43 AM) (05/31/22 6:00 AM) (05/31/22 12 :00 AM) Weight Obtained Via Bed scale (05/19/22 3:00 PM) Social History Social History Type Response Tobacco Other: 2-3 cigarettes per da y. Type: Cigarettes. Sex Male Care Team PersonnelName: Rose Bloom DO Address: [address] [place] [address] [place], [place] [id number] [place] [address]
--- OUTSIDE RECORDS SUMMARY | 2022-07-04 13:57 | XMS_ITS | Continuity of Care Document ---
:[address] [facility] Address [address] [place] [address]- Care Team Providers Name Role Phone Vivien Flores DO Primary Care Physician Encounter [facility] Date(s): 03/07/21 - 04/06/21 [facility] [address] [place] [address]- Allergies, Adverse Reactions, Alerts Substance Reaction Severity [...] tablet, 11 Refills, Maintenance, 03/07/21 10:59:00 EDT, [id number], 180.34, cm, 12/15/20 8:00:00 EST, Height Start Date: 03/07/21 Status: OrderedNarcan 4 mg/0.1 mL nasal spray = 4 mg, Nares, Both, Once, # 2 each, 0 Refills, Soft Stop, 01/05/21 9:56:00 EDT, [facility]acy #[id number],Partial fill upon patient request if [...] Refills, Maintenance, 01/05/21 9:58:00 EDT, EC Capsule, [id number], Partial fill upon patient request if the prescription is for a schedule II opioid drug., 180.34, cm, 12/15/20 8:00:00 EST,... Start Date: 01/05/21 Status: Orderedpropranolol 40 mg oral tablet 40 mg, 1, tablet, By Mouth, 2 times a day, # 60 tablet, Refills 11, Tot. Refills 11, Maintenance, 01/05/21 9:57:00 EDT, Route to Pharmacy Electronically, [facility] #[id number], Partial fill upon patient request if the prescription is for a schedule II op... Start Date: 01/05/21 Status: Ordered Problem List Condition Effective Dates Status Health Status Informant Antisocial personality Active features(Confirmed) Cannabis dependence with current Active use(Confirmed) Cocaine use disorder(Confirmed) Active Hypothyroid(Confirmed) Active Lives in retirement - Active [facility](Confirmed) Violent behavior(Confirmed) Active Social History Social History Type Response Tobacco Other: 2-3 cigarettes per da y. Type: Cigarettes. Sex Male
--- OUTSIDE RECORDS SUMMARY | 2022-07-04 13:57 | XMS_ITS | Continuity of Care Document ---
:[address] [facility] Address [address] [place] [address]- Care Team Providers Name Role Phone Jose SAVAGE, Leslie Primary Care Physician Encounter [facility] Date(s): 09/19/21 - 10/28/21 [facility] [address] [place] [address]- Attending Physician: Vivien Flores DO Admitting Physician: Vivien Flores DO Allergies, Adverse Reactions, Alerts Substance Reaction Severity [...] II opioid drug. Start Date: 08/03/21 Status: Ordereddivalproex sodium 500 mg oral tablet, [...] tablet, 11 Refills, Maintenance, 03/07/21 10:59:00 EDT, [facility], 180.34, cm, 12/15/20 8:00:00 EST, Height Start [...] 0 Refills, Soft Stop, 01/05/21 9:56:00 EDT, [facility]/pharmacy #[id number],Partial fill upon patient request if the [...] opioid drug. Start Date: 08/03/21 Status: Orderedolanzapine 20 mg oral tablet 1 [...] Refills, Maintenance, 08/22/21 23:09:00 EST, EC Capsule, [facility], Partial fill upon patient request if [...] 08/18/21 11:51:00 EST, Route to Pharmacy Electronically, [facility], Partial fill u... Start Date: 08/18/21 Status: Ordered Problem List Condition Effective Dates Status Health Status Informant Antisocial personality Active features(Confirmed) Cannabis dependence with current Active use(Confirmed) Cocaine use disorder(Confirmed) Active Hypothyroid(Confirmed) Active Lives in [facility] - Active [facility](Confirmed) Violent behavior(Confirmed) Active Social History Social History Type Response Tobacco Other: 2-3 cigarettes per da y. Type: Cigarettes. Sex Male
--- OUTSIDE RECORDS SUMMARY | 2022-07-04 13:57 | XMS_ITS | Continuity of Care Document ---
:1990 Author Organization [facility] Address [address] [place] [address]- Care Team Providers Name Role Phone Merle Rose YAÑEZ Primary Care Physician Encounter [facility] Date(s): 05/18/22 - 06/29/22 [facility] [address] [place] [address]- Attending Physician: Mario Velasquez MD Admitting Physician: Mario Velasquez MD Allergies, Adverse Reactions, Alerts Substance Reaction [...] 05/31/22 12:15:00 EDT, Route to Pharmacy Electronically, [facility], Partial fill upon patient request if the prescription is for a schedu... Start Date: 05/31/22 Status: Orderedolanzapine 5 mg oral tablet See Instructions, 1 tablet By Mouth Daily in the morning, 2 tablets daily before bedtime, # 90 tablet, Refills 0, Tot. Refills 0, Maintenance, 06/18/22 14:24:00 EDT, Instructions Replace Required Details, Route to [facility]acy [facility]ically, [facility] Start Date: 06/18/22 Status: Ordered Problem List Condition Effective Dates Status Health Status Informant Antisocial personality Active features(Confirmed) Cannabis dependence with current Active use(Confirmed) Cocaine use disorder(Confirmed) Active Hypothyroid(Confirmed) Active Lives in correction - Active [facility](Confirmed) Violent behavior(Confirmed) Active Social History Social History Type Response Tobacco Other: 2-3 cigarettes per da y. Type: Cigarettes. Sex Care Team PersonnelName: Rose Bloom DO Address: [address] [place] [address] Adult [address]
--- OUTSIDE RECORDS SUMMARY | 2022-07-04 13:57 | XMS_ITS | Continuity of Care Document ---
:1990 Author Organization [facility] Address [address] [place] [address]- Care Team Providers Name Role Phone Not on Staff, PCP Primary Care Physician Unavailable Encounter [facility] [place] Date(s): 05/23/20 - 05/24/20 [facility] [address] [place] [address]- [facility] Encounter Diagnosis Sinus tachycardia (Final) - 05/24/20 Bipolar disorder (Final) - 05/24/20 Discharge Disposition: A-Transfer SNF Attending Physician: Nehemiah Cintron MD Admitting Physician: Nehemiah Cintron MD Referring Physician: Not on Staff, Referring [...] 08/11/17 20:49:55 Start Date: 08/11/17 Status: Ordered Vital Signs Most recent to oldest 1 2 3 [Reference Range]: Oxygen Saturation [94-100 %] 100 % 98 % 98 % (05/24/20 6:09 AM) (05/24/20 4:02 AM) (05/24/20 2:3 3 AM) Pulse Rate [55-90 bpm] 113 bpm 107 bpm 129 bpm *H* *H* *H* (05/24/20 6:09 AM) (05/24/20 4:02 AM) (05/24/20 2:3 3 AM) Blood Pressure [90-138/55-84 mm 120/85 mm Hg 127/74 mm Hg 116/65 mm Hg Hg] (05/24/20 6:09 AM) (05/24/20 4:02 AM) (05/24/20 2:3 3 AM) Respiratory Rate [16-30 br/min] 18 br/min 20 br/min 18 br/min (05/24/20 6:09 AM) (05/24/20 4:02 AM) (05/24/20 2:3 3 AM) Temperature [96.8-100.4 DegF] 97.9 DegF 98.0 DegF 98 .0 DegF (05/24/20 6:09 AM) (05/24/20 4:02 AM) (05/24/20 2:3 3 AM) Mode of Delivery (Oxygen) Room air Room air Room a ir (05/24/20 6:09 AM) (05/24/20 4:02 AM) (05/24/20 2:3 3 AM) Blood pressure sites Arm, left Arm, left Arm, left (05/24/20 6:09 AM) (05/24/20 4:02 AM) (05/24/20 2:3 3 AM) Temperature Route Oral Oral Oral (05/24/20 6:09 AM) (05/24/20 4:02 AM) (05/24/20 2:3 3 AM) Social History Social History Type Response Smoking Status Current every day smoker; Ty pe: Cigarettes; Tobacco use times per day: 10 cigarettes per day; entered on: 04/27/16 Sex
--- OUTSIDE RECORDS SUMMARY | 2022-07-04 13:57 | XMS_ITS | Continuity of Care Document ---
:1990 Author Organization [facility] Address [address] [place] [address]- Care Team Providers Name Role Phone Vivien Flores DO Primary Care Physician Encounter [facility] Date(s): 01/05/21 - 02/04/21 [facility] [address] [place], [place] [address] Attending Physician: Rose Collazo Admitting Physician: AdmtrRose Referring Physician: AdmtrRose Allergies, Adverse Reactions, Alerts Substance Reaction Severity [...] 0 Refills, Maintenance, 01/31/21 18:34:00 EDT, Tablet, [facility]/pharmacy #[id number], Partial fill upon patient request if the prescription is for a schedule II opioid drug., 180.34, cm, 12/15/20 8:00:00 EST, Height Start Date: 01/31/21 Stop Date: 03/02/21 Status: OrderedNarcan 4 mg/0.1 mL nasal spray = 4 mg, Nares, Both, Once, # 2 each, 0 Refills, Soft Stop, 01/05/21 9:56:00 EDT, [facility]/pharmacy #[id number],Partial fill upon patient request if the [...] Refills, Maintenance, 01/05/21 9:58:00 EDT, EC Capsule, [facility]/pharmacy #[id number], Partial fill upon patient request if the prescription is for a schedule II opioid drug., 180.34, cm, 12/15/20 8:00:00 EST,... Start Date: 01/05/21 Status: Orderedpropranolol 40 mg oral tablet 40 mg, 1, tablet, By Mouth, 2 times a day, # 60 tablet, Refills 11, Tot. Refills 11, Maintenance, 01/05/21 9:57:00 EDT, Route to Pharmacy Electronically, [facility]/pharmacy #[id number], Partial fill upon patient request if the prescription is for a schedule II op... Start Date: 01/05/21 Status: Ordered Problem List Condition Effective Dates Status Health Status Informant Antisocial personality Active features(Confirmed) Cannabis dependence with current Active use(Confirmed) Cocaine use disorder(Confirmed) Active Hypothyroid(Confirmed) Active Lives in skilled nursing - Active [facility](Confirmed) Violent behavior(Confirmed) Active Social History Social History Type Response Tobacco Other: 2-3 cigarettes per da y. Type: Cigarettes. Sex Male
--- OUTSIDE RECORDS SUMMARY | 2022-07-04 13:57 | XMS_ITS | Continuity of Care Document ---
:1990 Author Organization [facility] Address [address] [place] [address]- Care Team Providers Name Role Phone Bloom Rose YAÑEZ Primary Care Physician Encounter [facility] Date(s): 06/08/22 - 06/18/[address] [address]- Encounter Diagnosis Psychosis (Final) - 06/08/22 Discharge Disposition: A-D/C Home Attending Physician: Jaden Bella MD Admitting Physician: Jaden Bella MD Referring Physician: Not on Staff, Referring [...] tablet, 0 Refills, Maintenance, 05/31/22 12:15:00 EDT, [facility], 170, cm, 05/31/22 11:43:00 EDT, Height, 71.6, kg, 05/18/22 13:23:00 EDT, Dry Weight Start Date: 05/31/22 Status: Orderedlevothyroxine 0.025 mg oral tablet 1 tablet = 25 mcg, By Mouth, Daily, # 30 tablet, 0 Refills, Maintenance, 06/18/22 14:24:00 EDT, Tablet, [facility]/pharmacy #[id number], Partial fill upon patient request if the prescription is for a schedule II opioid drug., 175, cm, 06/07/22 19:36:00 EDT, Height... Start Date: 06/18/22 Status: Orderedolanzapine 10 mg oral tablet 10 mg, 1, tablet, By Mouth, Daily at bedtime, # 30 tablet, Refills 0, Tot. Refills 0, Maintenance, 05/31/22 12:15:00 EDT, Route to Pharmacy Electronically, [facility], Partial fill upon patient request if the prescription is for a schedu... Start Date: 05/31/22 Status: Orderedolanzapine 5 mg oral tablet 5 mg, 1, tablet, By Mouth, Daily in AM, # 30 tablet, Refills 0, Tot. Refills 0, Maintenance, 05/31/22 12:15:00 EDT, Route to Pharmacy Electronically, [facility], Partial fill upon patientrequest if the prescription is for a schedule II... Start Date: 05/31/22 Status: Orderedolanzapine 5 mg oral tablet See Instructions, 1 tablet By Mouth Daily in the morning, 2 tablets daily before bedtime, # 90 tablet, Refills 0, Tot. Refills 0, Maintenance, 06/18/22 14:24:00 EDT, Instructions Replace Required Details, Route to Pharmacy Electronically, [facility]/pharmacy... Start Date: 06/18/22 Status: Ordered Problem List Condition Effective Dates Status Health Status Informant Antisocial personality Active features(Confirmed) Cannabis dependence with current Active use(Confirmed) Cocaine use disorder(Confirmed) Active Hypothyroid(Confirmed) Active Lives in care home - Active [facility](Confirmed) Violent behavior(Confirmed) Active Vital Signs Most recent to oldest 1 2 3 [Reference Range]: Oxygen Saturation [94-100 %] 100 % 99 % 100 % (06/18/22 2:14 PM) (06/17/22 11:35 PM) (06/17/22 3: 21 PM) Pulse Rate [55-90 bpm] 79 bpm 88 bpm 90 bpm (06/18/22 2:14 PM) (06/17/22 11:35 PM) (06/17/22 3: 21 PM) Blood Pressure [90-138/55-84 115/72 mm Hg 112/82 mm Hg 114 /85 mm Hg mm Hg] (06/18/22 2:14 PM) (06/17/22 11:35 PM) (06/17/22 3: 21 PM) Respiratory Rate [16-30 16 br/min 18 br/min 17 br/mi n br/min] (06/18/22 2:14 PM) (06/17/22 11:35 PM) (06/17/22 3: 21 PM) Temperature [96.8-100.4 DegF] 98.5 DegF 98.1 DegF 98 DegF (06/18/22 2:14 PM) (06/17/22 11:35 PM) (06/17/22 3: 21 PM) Mode of Delivery (Oxygen) Room air Room air Room a ir (06/18/22 2:14 PM) (06/17/22 11:35 PM) (06/17/22 3: 21 PM) Blood pressure sites Arm, right Arm, right Arm, right (06/18/22 2:14 PM) (06/17/22 11:35 PM) (06/17/22 3: 21 PM) Temperature Route Oral Oral Oral (06/18/22 2:14 PM) (06/17/22 11:35 PM) (06/17/22 3: 21 PM) Social History Social History Type Response Tobacco Other: 2-3 cigarettes per da y. Type: Cigarettes. Sex Care Team PersonnelName: Rose Bloom DO Address: [address] [place] [address] Adult [place], [address]
--- OUTSIDE RECORDS SUMMARY | 2022-07-04 13:57 | XMS_ITS | Continuity of Care Document ---
:1990 Author Organization [facility] Address [address] [place] [address]- Care Team Providers Name Role Phone Jose SAVAGE, Leslie Primary Care Physician Encounter [facility] Date(s): 02/26/22 - 04/13/22 [facility] [address] [place] [address]- Attending Physician: Mario Velasquez MD Admitting Physician: [...] 01/26/22 10:53:00 EDT, Route to Pharmacy Electronically, [facility], Partial fill upon patient request if [...] 0 Refills, Maintenance, 01/26/22 10:53:00 EDT, Tablet, [facility], Partial fill upon patient request if the prescription is for a schedule II opioid drug., 180, cm... Start Date: 01/26/22 Stop Date: 02/02/22 Status: Ordereddivalproex sodium 500 mg oral enteric coated tablet = 1,000 mg, By Mouth, Daily at bedtime, Blister pack, # 14 tablet, 0 Refills, Maintenance, 01/26/22 10:53:00 EDT, Tablet, [facility], Partial fill upon patient request if [...] tablet, 11 Refills, Maintenance, 03/07/21 10:59:00 EDT, [id number], 180.34, cm, 12/15/20 8:00:00 EST, Height Start [...] 0 Refills, Soft Stop, 01/05/21 9:56:00 EDT, [facility]/pharmacy #[id number],Partial fill upon patient request if [...] Maintenance,01/26/22 10:53:00 EDT, Route to Pharmacy Electronically, [facility], Partial fill upon patient request if [...] Refills, Maintenance, 08/22/21 23:09:00 EST, EC Capsule, [facility], Partial fill upon patient request if [...] 08/18/21 11:51:00 EST, Route to Pharmacy Electronically, [facility], Partial fill u... Start Date: 08/18/21 Status: Ordered Problem List Condition Effective Dates Status Health Status Informant Antisocial personality Active features(Confirmed) Cannabis dependence with current Active use(Confirmed) Cocaine use disorder(Confirmed) Active Hypothyroid(Confirmed) Active Lives in jail - Active [facility](Confirmed) Violent behavior(Confirmed) Active Social History Social History Type Response Tobacco Other: 2-3 cigarettes per da y. Type: Cigarettes. Sex Male
--- OUTSIDE RECORDS SUMMARY | 2022-07-04 13:57 | XMS_ITS | Continuity of Care Document ---
:1990 Author Organization [facility] Address [address] [place] [address]- Care Team Providers Name Role Phone Rose Bloom DO Leyla Primary Care Physician Encounter [facility] ACCT R [id number] Date(s): 04/17/22 - 04/17/22 [facility] [address] [place] [address]- Discharge Disposition: A-D/C Home Attending Physician: Rajeev Garcia MD Admitting Physician: Rajeev Garcia MD Referring Physician: Not on Staff, Referring [...] 01/26/22 10:53:00 EDT, Route to Pharmacy Electronically, [facility], Partial fill upon patient request if the [...] 0 Refills, Maintenance, 01/26/22 10:53:00 EDT, Tablet, [facility], Partial fill upon patient request if the prescription is for a schedule II opioid drug., 180, cm... Start Date: 01/26/22 Stop Date: 02/02/22 Status: Ordereddivalproex sodium 500 mg oral enteric coated tablet = 1,000 mg, By Mouth, Daily at bedtime, Blister pack, # 14 tablet, 0 Refills, Maintenance, 01/26/22 10:53:00 EDT, Tablet, [facility], Partial fill upon patient request if the prescription is for a schedule II opioid drug., 180, cm, 01/26/22... Start Date: 01/26/22 Stop Date: 02/02/22 Status: Ordereddivalproex sodium 500 mg oral tablet, extended release 1 tablet = 500 mg, By Mouth, Daily, # 30 tablet, 0 Refills, Maintenance, 04/16/22 15:53:00 EDT, ER Tablet, Partial fill upon patient request if the prescription is for a schedule II opioid drug. Start Date: 04/16/22 Status: Ordereddivalproex sodium 500 mg oral tablet, [...] tablet, 11 Refills, Maintenance, 03/07/21 10:59:00 EDT, [id number], 180.34, cm, 12/15/20 8:00:00 EST, Height Start [...] 0 Refills, Soft Stop, 01/05/21 9:56:00 EDT, [facility]/pharmacy #[id number],Partial fill upon patient request if the [...] Maintenance,01/26/22 10:53:00 EDT, Route to Pharmacy Electronically, [facility], Partial fill upon patient request if [...] II opioid drug. Start Date: 01/05/21 Status: Orderedolanzapine 5 mg oral tablet, disintegrating 1 tablet = 5 mg, By Mouth, 2 times a day, # 30 tablet, 0 Refills, Maintenance, 04/17/22 22:57:00 EDT, DIS Tablet, [facility]/pharmacy #[id number], Partial fill upon patient request if the prescription is for a schedule II opioid drug., 178, cm, 02/24/22 20:58:00 E... Start Date: 04/17/22 Status: Orderedomeprazole 20 mg oral enteric coated capsule 1 capsule = 20 mg, By Mouth, Daily, # 14 capsule, 0 Refills, Maintenance, 08/22/21 23:09:00 EST, EC Capsule, [facility], Partial fill upon patient request if [...] 08/18/21 11:51:00 EST, Route to Pharmacy Electronically, [facility], Partial fill u... Start Date: 08/18/21 Status: Ordered Problem List Condition Effective Dates Status Health Status Informant Antisocial personality Active features(Confirmed) Cannabis dependence with current Active use(Confirmed) Cocaine use disorder(Confirmed) Active Hypothyroid(Confirmed) Active Lives in [facility]ci - Active [facility](Confirmed) Violent behavior(Confirmed) Active Vital Signs Most recent to oldest [Reference Range]: 1 Oxygen Saturation [94-100 %] 96 % (04/17/22 5:34 PM) Pulse Rate [55-90 bpm] 77 bpm (04/17/22 5:34 PM) Blood Pressure [90-138/55-84 mm Hg] 98/63 mm Hg (04/17/22 5:34 PM) Respiratory Rate [16-30 br/min] 18 br/min (04/17/22 5:34 PM) Temperature [96.8-100.4 DegF] 98.0 DegF (04/17/22 5:34 PM) Mode of Delivery (Oxygen) Room air (04/17/22 5:34 PM) Blood pressure sites Arm, left (04/17/22 5:34 PM) Temperature Route Oral (04/17/22 5:34 PM) Social History Social History Type Response Tobacco Other: 2-3 cigarettes per da y. Type: Cigarettes. Sex Male
--- OUTSIDE RECORDS SUMMARY | 2022-07-04 13:57 | XMS_ITS | Continuity of Care Document ---
:1990 Author Organization [facility] Address [address] [place] [address]- Care Team Providers Name Role Phone Merle Rose YAÑEZ Primary Care Physician [place] [facility] [place] [id number] Date(s): 05/03/22 - 06/16/22 [facility] [address] [place] [address]- Attending Physician: Mario Velasquez MD Admitting Physician: [...] tablet, 0 Refills, Maintenance, 05/31/22 12:15:00 EDT, [facility], 170, cm, 05/31/22 11:43:00 EDT, Height, 71.6, kg, 05/18/22 13:23:00 EDT, Dry Weight Start Date: 05/31/22 Status: Orderedolanzapine 10 mg oral tablet 10 mg, 1, tablet, By Mouth, Daily at bedtime, # 30 tablet, Refills 0, Tot. Refills 0, Maintenance, 05/31/22 12:15:00 EDT, Route to Pharmacy Electronically, [facility], Partial fill upon patient request if the prescription is for a schedu... Start Date: 05/31/22 Status: Orderedolanzapine 5 mg oral tablet 5 mg, 1, tablet, By Mouth, Daily in AM, # 30 tablet, Refills 0, Tot. Refills 0, Maintenance, 05/31/22 12:15:00 EDT, Route to Pharmacy Electronically, [facility], Partial fill upon patientrequest if the prescription is for a schedule II... Start Date: 05/31/22 Status: Ordered Problem List Condition Effective Dates Status Health Status Informant Antisocial personality Active features(Confirmed) Cannabis dependence with current Active use(Confirmed) Cocaine use disorder(Confirmed) Active Hypothyroid(Confirmed) Active Lives in [facility] - Active [facility](Confirmed) Violent behavior(Confirmed) Active Social History Social History Type Response Tobacco Other: 2-3 cigarettes per da y. Type: Cigarettes. Sex Care Team PersonnelName: Rose Bloom DO Address: [address] [place] [address]
--- OUTSIDE RECORDS SUMMARY | 2022-07-04 13:57 | XMS_ITS | Continuity of Care Document ---
:1990 Author Organization [facility] Address [address] [place] [address]- Care Team Providers Name Role Phone Leslie Garcia MD Primary Care Physician En[place] [facility] Date(s): 01/20/22 - 01/26/[address] [address]- Encounter Diagnosis Auditory hallucinations (Final) - 01/20/22 Discharge Disposition: A-D/C Home Attending Physician: Rosaura Teague MD Admitting Physician: Rosaura Teague MD Referring Physician: Not on Staff, Referring [...] 01/26/22 10:53:00 EDT, Route to Pharmacy Electronically, [facility], Partial fill upon patient request if [...] 0 Refills, Maintenance, 01/26/22 10:53:00 EDT, Tablet, [facility], Partial fill upon patient request if the prescription is for a schedule II opioid drug., 180, cm... Start Date: 01/26/22 Stop Date: 02/02/22 Status: Ordereddivalproex sodium 500 mg oral enteric coated tablet = 1,000 mg, By Mouth, Daily at bedtime, Blister pack, # 14 tablet, 0 Refills, Maintenance, 01/26/22 10:53:00 EDT, Tablet, [facility], Partial fill upon patient request if [...] tablet, 11 Refills, Maintenance, 03/07/21 10:59:00 EDT, [facility], 180.34, cm, 12/15/20 8:00:00 EST, Height Start [...] 0 Refills, Soft Stop, 01/05/21 9:56:00 EDT, [facility]/pharmacy #[id number],Partial fill upon patient request if [...] Maintenance,01/26/22 10:53:00 EDT, Route to Pharmacy Electronically, [facility], Partial fill upon patient request if [...] Refills, Maintenance, 08/22/21 23:09:00 EST, EC Capsule, [facility], Partial fill upon patient request if [...] 08/18/21 11:51:00 EST, Route to Pharmacy Electronically, [facility], Partial fill u... Start Date: 08/18/21 Status: Ordered Problem List Condition Effective Dates Status Health Status Informant Antisocial personality Active features(Confirmed) Cannabis dependence with current Active use(Confirmed) Cocaine use disorder(Confirmed) Active Hypothyroid(Confirmed) Active Lives in care home - Active [facility](Confirmed) Violent behavior(Confirmed) Active Vital Signs Most recent to oldest 1 2 3 [Reference Range]: Height 180 cm 180 cm 180 cm (01/26/22 5:47 AM) (01/25/22 9:24 PM) (01/25/22 2:5 9 PM) Oxygen Saturation [94-100 %] 100 % 100 % 100 % (01/26/22 5:47 AM) (01/25/22 9:24 PM) (01/25/22 2:5 9 PM) Pulse Rate [55-90 bpm] 110 bpm 108 bpm 115 bpm *H* *H* *H* (01/26/22 5:47 AM) (01/25/22 9:24 PM) (01/25/22 2:5 9 PM) Blood Pressure [90-138/55-84 mm 132/96 mm Hg 126/88 mm Hg 131/90 mm Hg Hg] (01/26/22 5:47 AM) (01/25/22 9:24 PM) (01/25/22 2:5 9 PM) Respiratory Rate [16-30 br/min] 18 br/min 18 br/min 18 br/min (01/26/22 5:47 AM) (01/25/22 9:24 PM) (01/25/22 2:5 9 PM) Temperature [96.8-100.4 DegF] 97.9 DegF 98.3 DegF 97 .5 DegF (01/26/22 5:47 AM) (01/25/22 9:24 PM) (01/25/22 2:5 9 PM) Mode of Delivery (Oxygen) Room air Room air Room a ir (01/26/22 5:47 AM) (01/25/22 9:24 PM) (01/25/22 2:5 9 PM) Blood pressure sites Arm, right Arm, right Arm, right (01/26/22 5:47 AM) (01/25/22 9:24 PM) (01/25/22 2:5 9 PM) Temperature Route Oral Oral Oral (01/26/22 5:47 AM) (01/25/22 9:24 PM) (01/25/22 2:5 9 PM) Dry Weight 79.4 kg 79.4 kg 79.4 kg (01/26/22 5:47 AM) (01/25/22 9:24 PM) (01/25/22 2:5 9 PM) Social History Social History Type Response Tobacco Other: 2-3 cigarettes per da y. Type: Cigarettes. Sex Male
--- OUTSIDE RECORDS SUMMARY | 2022-07-04 13:57 | XMS_ITS | Continuity of Care Document ---
:1990 Author Organization [facility] Address [address] [place] [address]- Care Team Providers Name Role Phone Leslie Garcia MD Primary Care Physician En[place] [facility] [place](s): 03/14/22 - 04/13/22 [facility] [address] [place], [place] [address] Attending Physician: Rose Collazo Admitting Physician: Rose Collazo Referring Physician: AdmtrRose Allergies, Adverse Reactions, Alerts [...] 01/26/22 10:53:00 EDT, Route to Pharmacy Electronically, [facility], Partial fill upon patient request if [...] 0 Refills, Maintenance, 01/26/22 10:53:00 EDT, Tablet, [facility], Partial fill upon patient request if the prescription is for a schedule II opioid drug., 180, cm... Start Date: 01/26/22 Stop Date: 02/02/22 Status: Ordereddivalproex sodium 500 mg oral enteric coated tablet = 1,000 mg, By Mouth, Daily at bedtime, Blister pack, # 14 tablet, 0 Refills, Maintenance, 01/26/22 10:53:00 EDT, Tablet, [facility], Partial fill upon patient request if [...] tablet, 11 Refills, Maintenance, 03/07/21 10:59:00 EDT, [facility] [id number], 180.34, cm, 12/15/20 8:00:00 EST, Height Start [...] 0 Refills, Soft Stop, 01/05/21 9:56:00 EDT, [facility]/pharmacy #[id number],Partial fill upon patient request if [...] Maintenance,01/26/22 10:53:00 EDT, Route to Pharmacy Electronically, [facility], Partial fill upon patient request if [...] Refills, Maintenance, 08/22/21 23:09:00 EST, EC Capsule, [facility], Partial fill upon patient request if [...] 08/18/21 11:51:00 EST, Route to Pharmacy Electronically, [facility], Partial fill u... Start Date: 08/18/21 Status: Ordered Problem List Condition Effective Dates Status Health Status Informant Antisocial personality Active features(Confirmed) Cannabis dependence with current Active use(Confirmed) Cocaine use disorder(Confirmed) Active Hypothyroid(Confirmed) Active Lives in detention - Active [facility](Confirmed) Violent behavior(Confirmed) Active Social History Social History Type Response Tobacco Other: 2-3 cigarettes per da y. Type: Cigarettes. Sex Male
--- OUTSIDE RECORDS SUMMARY | 2022-07-04 13:57 | XMS_ITS | Continuity of Care Document ---
:[address] [facility] Address [address] [place] [address]- Care Team Providers Name Role Phone Leslie Garcia MD Primary Care Physician Encounter [facility] [place] Date(s): 01/22/22 - 03/10/22 [facility] [address] [place] [address]- Attending Physician: Not on Staff, Attending MD [...] 01/26/22 10:53:00 EDT, Route to Pharmacy Electronically, [facility], Partial fill upon patient request if [...] 0 Refills, Maintenance, 01/26/22 10:53:00 EDT, Tablet, [facility], Partial fill upon patient request if the prescription is for a schedule II opioid drug., 180, cm... Start Date: 01/26/22 Stop Date: 02/02/22 Status: Ordereddivalproex sodium 500 mg oral enteric coated tablet = 1,000 mg, By Mouth, Daily at bedtime, Blister pack, # 14 tablet, 0 Refills, Maintenance, 01/26/22 10:53:00 EDT, Tablet, [facility], Partial fill upon patient request if [...] tablet, 11 Refills, Maintenance, 03/07/21 10:59:00 EDT, [id number], 180.34, cm, 12/15/20 8:00:00 EST, Height Start [...] 0 Refills, Soft Stop, 01/05/21 9:56:00 EDT, [facility]/pharmacy #[id number],Partial fill upon patient request if [...] Maintenance,01/26/22 10:53:00 EDT, Route to Pharmacy Electronically, [facility], Partial fill upon patient request if [...] Refills, Maintenance, 08/22/21 23:09:00 EST, EC Capsule, [facility], Partial fill upon patient request if [...] 08/18/21 11:51:00 EST, Route to Pharmacy Electronically, [facility], Partial fill u... Start Date: 08/18/21 Status: Ordered Problem List Condition Effective Dates Status Health Status Informant Antisocial personality Active features(Confirmed) Cannabis dependence with current Active use(Confirmed) Cocaine use disorder(Confirmed) Active Hypothyroid(Confirmed) Active Lives in retirement - Active [facility](Confirmed) Violent behavior(Confirmed) Active Social History Social History Type Response Tobacco Other: 2-3 cigarettes per da y. Type: Cigarettes. Sex Male
--- OUTSIDE RECORDS SUMMARY | 2022-07-04 13:57 | XMS_ITS | Continuity of Care Document ---
:1990 Author Organization [facility] Address [address] [place] [address]- Care Team Providers Name Role Phone Leslie Garcia MD Primary Care Physician Encounter [facility] [place] Date(s): 01/30/22 - 03/11/22 [facility] [address] [place] [address]- Attending Physician: Mario Velasquez MD Admitting Physician: Mario Velasquez MD Referring Physician: Leslie Garcia MD Allergies, Adverse Reactions, Alerts Substance Reaction [...] 01/26/22 10:53:00 EDT, Route to Pharmacy Electronically, [facility], Partial fill upon patient request if [...] 0 Refills, Maintenance, 01/26/22 10:53:00 EDT, Tablet, [facility], Partial fill upon patient request if the prescription is for a schedule II opioid drug., 180, cm... Start Date: 01/26/22 Stop Date: 02/02/22 Status: Ordereddivalproex sodium 500 mg oral enteric coated tablet = 1,000 mg, By Mouth, Daily at bedtime, Blister pack, # 14 tablet, 0 Refills, Maintenance, 01/26/22 10:53:00 EDT, Tablet, [facility], Partial fill upon patient request if [...] tablet, 11 Refills, Maintenance, 03/07/21 10:59:00 EDT, [facility] [address], 180.34, cm, 12/15/20 8:00:00 EST, Height Start [...] 0 Refills, Soft Stop, 01/05/21 9:56:00 EDT, [facility]/pharmacy #[id number],Partial fill upon patient request if the [...] Maintenance,01/26/22 10:53:00 EDT, Route to Pharmacy Electronically, [facility], Partial fill upon patient request if [...] Refills, Maintenance, 08/22/21 23:09:00 EST, EC Capsule, [facility], Partial fill upon patient request if [...] 08/18/21 11:51:00 EST, Route to Pharmacy Electronically, [facility], Partial fill u... Start Date: 08/18/21 Status: Ordered Problem List Condition Effective Dates Status Health Status Informant Antisocial personality Active features(Confirmed) Cannabis dependence with current Active use(Confirmed) Cocaine use disorder(Confirmed) Active Hypothyroid(Confirmed) Active Lives in retirement - Active [facility](Confirmed) Violent behavior(Confirmed) Active Social History Social History Type Response Tobacco Other: 2-3 cigarettes per da y. Type: Cigarettes. Sex Male
--- OUTSIDE RECORDS SUMMARY | 2022-07-04 13:57 | XMS_ITS | Continuity of Care Document ---
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 Start Date: 01/26/22 Stop Date: 02/02/22 Status: Ordereddivalproex sodium 500 mg oral enteric coated tablet = 1,000 mg, By Mouth, Daily at bedtime, Blister pack, # 14 tablet, 0 Refills, Maintenance, 01/26/22 10:53:00 EDT, Tablet, [facility], Partial fill upon patient request [...] tablet, 11 Refills, Maintenance, 03/07/21 10:59:00 EDT, [facility] [address]953, 180.34, cm, 12/15/20 8:00:00 EST, Height Start [...] 0 Refills, Soft Stop, 01/05/21 9:56:00 EDT, [facility]/pharmacy #[id number],Partial fill upon patient request if [...] Maintenance,01/26/22 10:53:00 EDT, Route to Pharmacy Electronically, [facility], Partial fill upon patient request if [...] Refills, Maintenance, 08/22/21 23:09:00 EST, EC Capsule, [facility], Partial fill upon patient request if [...] 08/18/21 11:51:00 EST, Route to Pharmacy Electronically, [facility], Partial fill u... Start Date: 08/18/21 Status: Ordered Problem List Condition Effective Dates Status Health Status Informant Antisocial personality Active features(Confirmed) Cannabis dependence with current Active use(Confirmed) Cocaine use disorder(Confirmed) Active Hypothyroid(Confirmed) Active Lives in custodial - Active [facility](Confirmed) Violent behavior(Confirmed) Active Vital Signs Most recent to oldest 1 2 3 [Reference Range]: Oxygen Saturation [94-100 %] 98 % 98 % 98 % (03/04/22 5:21 AM) (03/03/22 7:34 PM) (03/03/22 4:0 0 PM) Pulse Rate [55-90 bpm] 88 bpm 93 bpm 98 bpm (03/04/22 5:21 AM) *H* *H* (03/03/22 7:34 PM) (03/03/22 4:00 PM) Blood Pressure [90-138/55-84 mm 112/78 mm Hg 105/81 mm Hg 108/58 mm Hg Hg] (03/04/22 5:21 AM) (03/03/22 7:34 PM) (03/03/22 4:0 0 PM) Respiratory Rate [16-30 br/min] 16 br/min 19 br/min 18 br/min (03/04/22 5:21 AM) (03/03/22 7:34 PM) (03/03/22 4:0 0 PM) Temperature [96.8-100.4 DegF] 98.0 DegF 97.7 DegF 98 .9 DegF (03/04/22 5:21 AM) (03/03/22 7:34 PM) (03/03/22 4:0 0 PM) Mode of Delivery (Oxygen) Room air Room air Room a ir (03/04/22 5:21 AM) (03/03/22 7:34 PM) (03/03/22 4:0 0 PM) Blood pressure sites Arm, right Arm, right Arm, right (03/04/22 5:21 AM) (03/03/22 7:34 PM) (03/03/22 4:0 0 PM) Temperature Route Oral Oral Oral (03/04/22 5:21 AM) (03/03/22 7:34 PM) (03/03/22 4:0 0 PM) Social History Social History Type Response Tobacco Other: 2-3 cigarettes per da y. Type: Cigarettes. Sex Male
--- OUTSIDE RECORDS SUMMARY | 2022-07-04 13:57 | XMS_ITS | Continuity of Care Document ---
:1990 Author Organization [facility] Address [address] [place] [address]- Care Team Providers Name Role Phone Not on Staff, PCP Primary Care Physician Unavailable [place] [facility] [place]): [place]20 [facility] [address] [place] [phone] [facility] Encounter Diagnosis Cellulitis (Final) - 03/08/20 Discharge Disposition: A-D/C Home Attending Physician: Warren Gross MD Admitting Physician: Warren Gross MD Referring Physician: Not on Staff, Referring [...] 20:52:44, ER Tablet Start Date: 08/11/17 Status: Ordereddoxycycline hyclate 100 mg oral capsule 1 capsule = 100 mg, By Mouth, 2 times a day, for 7 days, # 14 capsule, 0 Refills, Acute 03/15/20 1:37:00 EDT, 03/08/20 1:37:00 EDT, Capsule Start Date: 03/08/20 Stop Date: 03/15/20 Status: Orderedibuprofen 400 mg oral tablet 400 [...] 08/11/17 20:49:55 Start Date: 08/11/17 Status: Ordered Results Radiology Reports Exam Date Time Procedure Performing Provider Status 03/07/20 11:37 PM Foot Min 3 Views Right Mojgan Yen; Auth (V erified) Notes:(Foot Min 3 Views Right) Reason For Exam: with Pain;ErythemaRESULT: Foot Min 3 Views Right Foot Min 3 Views Right, 3 views Reason: Erythema; with Pain; Clinical Question(s): Osteomyelitis; Hx of Present Illness: Right foot edema redness and swelling. COMPARISON: None. FINDINGS: Diffuse soft tissue swelling overlying the dorsum of the foot particularly overlying the metacarpals. No acute fracture. No periosteal reaction or erosion. IMPRESSION: No osseous abnormality identified radiographically. WSN: [id number] Ordering Physician: Ingrid Kaye Dictated By: Juan Ch MD Dictated Date/Time: 03/07/20 11:41 p Reviewed By: Juan Ch MD Signed By: Juan Ch MD Signed Date/Time: 03/07/20 11:41 pm Transcribed By: ASTON Transcribed Date/Time: 03/07/20 11:39 pm Vital Signs Most recent to oldest [Reference Range]: 1 2 Oxygen Saturation [94-100 %] 99 % 96 % (03/08/20 2:07 AM) (03/07/20 11:15 PM) Pulse Rate [55-90 bpm] 77 bpm 87 bpm (03/08/20 2:07 AM) (03/07/20 11:15 PM) Blood Pressure [90-138/55-84 mm Hg] 103/66 mm Hg 95/5 2 mm Hg (03/08/20 2:07 AM) (03/07/20 11:15 PM) Respiratory Rate [16-30 br/min] 19 br/min 20 br/mi n (03/08/20 2:07 AM) (03/07/20 11:15 PM) Temperature [96.8-100.4 DegF] 98.6 DegF (03/07/20 11:15 PM) Mode of Delivery (Oxygen) Room air Room air (03/08/20 2:07 AM) (03/07/20 11:15 PM) Blood pressure sites Arm, left (03/07/20 11:15 PM) Temperature Route Oral (03/07/20 11:15 PM) Social History Social History Type Response Smoking Status Current every day smoker; Ty pe: Cigarettes; Tobacco use times per day: 10 cigarettes per day; entered on: 04/27/16 Sex
--- OUTSIDE RECORDS SUMMARY | 2022-07-04 13:57 | XMS_ITS | Continuity of Care Document ---
:[address] [facility] Address [address] [place] [address]- Care Team Providers Name Role Phone Jose SAVAGE, Leslie Primary Care Physician Encounter [facility] Date(s): 09/28/21 - 10/28/21 [facility] [address] [place], [place] [address] Attending Physician: Rose Collazo Admitting Physician: AdmRose quintana Referring Physician: AdmtrRose Allergies, Adverse Reactions, Alerts [...] 11 Refills, Maintenance, 03/07/21 10:59:00 EDT, [facility] [address]73, 180.34, cm, 12/15/20 8:00:00 EST, Height Start [...] Refills, Soft Stop, 01/05/21 9:56:00 EDT, [facility]/pharmacy #[id number],Partial fill upon patient request [...] Refills, Maintenance, 08/22/21 23:09:00 EST, EC Capsule, [facility], Partial fill upon patient request if [...] 08/18/21 11:51:00 EST, Route to Pharmacy Electronically, [facility], Partial fill u... Start Date: 08/18/21 Status: Ordered Problem List Condition Effective Dates Status Health Status Informant Antisocial personality Active features(Confirmed) Cannabis dependence with current Active use(Confirmed) Cocaine use disorder(Confirmed) Active Hypothyroid(Confirmed) Active Lives in senior care - Active [facility](Confirmed) Violent behavior(Confirmed) Active Social History Social History Type Response Tobacco Other: 2-3 cigarettes per da y. Type: Cigarettes. Sex Male
--- OUTSIDE RECORDS SUMMARY | 2022-07-04 13:57 | XMS_ITS | Continuity of Care Document ---
:1990 Author Organization [facility] Address [address] [place] [address]- Care Team Providers Name Role Phone Merle Rose YAÑEZ Primary Care Physician [id number] - [facility]07/22 [facility] [address] [place] [address]- Discharge Disposition: A-D/C Walkout Attending Physician: Not [...] tablet, 0 Refills, Maintenance, 05/31/22 12:15:00 EDT, [facility], 170, cm, 05/31/22 11:43:00 EDT, Height, 71.6, kg, 05/18/22 13:23:00 EDT, Dry Weight Start Date: 05/31/22 Status: Orderedolanzapine 10 mg oral tablet 10 mg, 1, tablet, By Mouth, Daily at bedtime, # 30 tablet, Refills 0, Tot. Refills 0, Maintenance, 05/31/22 12:15:00 EDT, Route to Pharmacy Electronically, [facility], Partial fill upon patient request if the prescription is for a schedu... Start Date: 05/31/22 Status: Orderedolanzapine 5 mg oral tablet 5 mg, 1, tablet, By Mouth, Daily in AM, # 30 tablet, Refills 0, Tot. Refills 0, Maintenance, 05/31/22 12:15:00 EDT, Route to Pharmacy Electronically, [facility], Partial fill upon patientrequest if the prescription is for a schedule II... Start Date: 05/31/22 Status: Ordered Problem List Condition Effective Dates Status Health Status Informant Antisocial personality Active features(Confirmed) Cannabis dependence with current Active use(Confirmed) Cocaine use disorder(Confirmed) Active Hypothyroid(Confirmed) Active Lives in fpc - Active [facility](Confirmed) Violent behavior(Confirmed) Active Vital Signs Most recent to oldest [Reference Range]: 1 2 Height 175 cm (06/07/22 7:36 PM) Weight 71 kg (06/07/22 7:36 PM) Oxygen Saturation [94-100 %] 100 % 97 % (06/07/22 7:36 PM) (06/07/22 7:34 PM) Pulse Rate [55-90 bpm] 98 bpm 110 bpm *H* *H* (06/07/22 7:36 PM) (06/07/22 7:34 PM) Body Mass Index [18.5-24.99] 23.18 (06/07/22 7:36 PM) Blood Pressure [90-138/55-84 mm Hg] 133/87 mm Hg (06/07/22 7:36 PM) Respiratory Rate [16-30 br/min] 18 br/min 18 br/mi n (06/07/22 7:36 PM) (06/07/22 7:34 PM) Temperature [96.8-100.4 DegF] 98.7 DegF (06/07/22 7:36 PM) Mode of Delivery (Oxygen) Room air Room air (06/07/22 7:36 PM) (06/07/22 7:34 PM) Blood pressure sites Arm, right (06/07/22 7:36 PM) Temperature Route Oral (06/07/22 7:36 PM) Dry Weight 71 kg (06/07/22 7:36 PM) Weight Obtained Via Standing scale (06/07/22 7:36 PM) Dry Weight Obtained Via Standing scale (06/07/22 7:36 PM) Social History Social History Type Response Tobacco Other: 2-3 cigarettes per da y. Type: Cigarettes. Sex Care Team PersonnelName: Rose Bloom DO Address: [address] [place] [address]
--- OUTSIDE RECORDS SUMMARY | 2022-07-04 13:57 | XMS_ITS | Continuity of Care Document ---
:1990 Author Organization [facility] Address [address] [place] [address]- Care Team Providers Name Role Phone Merle YAÑEZ Rose eLyla Primary Care Physician [place] [facility] [place] - 05/19/[address] [address]- Discharge Disposition: Transferred [facility]-term [facility] hospit Attending Physician: Sue Portillo MD Admitting Physician: Devin Ortega MD Referring Physician: Not on Staff, Referring [...] 01/26/22 10:53:00 EDT, Route to Pharmacy Electronically, [facility], Partial fill upon patient request if [...] 0 Refills, Maintenance, 01/26/22 10:53:00 EDT, Tablet, [facility], Partial fill upon patient request if the prescription is for a schedule II opioid drug., 180, cm... Start Date: 01/26/22 Stop Date: 02/02/22 Status: Ordereddivalproex sodium 500 mg oral enteric coated tablet = 1,000 mg, By Mouth, Daily at bedtime, Blister pack, # 14 tablet, 0 Refills, Maintenance, 01/26/22 10:53:00 EDT, Tablet, [facility], Partial fill upon patient request if [...] tablet, 11 Refills, Maintenance, 03/07/21 10:59:00 EDT, [facility], 180.34, cm, 12/15/20 8:00:00 EST, Height Start [...] Refills, Soft Stop, 01/05/21 9:56:00 EDT, [facility]/pharmacy #[id number],Partial fill upon patient request if the prescription is for a schedule II opioid drug., 180.34, cm,12/15/20 8:00:00 EST, Height Start Date: 01/05/21 Status: Orderedolanzapine 10 mg oral tablet 10 mg, 1, tablet, By Mouth, Daily, # 14 tablet, Refills 0, Tot. Refills 0, Maintenance, 04/18/22 11:26:00 EDT, Route to Pharmacy Electronically, [facility]/pharmacy #[id number], Partial fill upon patient request ifthe prescription is for a schedule II opioid drug... Start Date: 04/18/22 Stop Date: 05/02/22 Status: Orderedolanzapine 10 mg oral tablet 10 [...] Maintenance,01/26/22 10:53:00 EDT, Route to Pharmacy Electronically, [facility], Partial fill upon patient request if [...] Refills, Maintenance, 08/22/21 23:09:00 EST, EC Capsule, [facility], Partial fill upon patient request if [...] 08/18/21 11:51:00 EST, Route to Pharmacy Electronically, [facility], Partial fill u... Start Date: 08/18/21 Status: Ordered Problem List Condition Effective Dates Status Health Status Informant Antisocial personality Active features(Confirmed) Cannabis dependence with current Active use(Confirmed) Cocaine use disorder(Confirmed) Active Hypothyroid(Confirmed) Active Lives in fci - Active [place](Confirmed) Violent behavior(Confirmed) Active Results Orders for Microbiology Reports Name Date Blood Culture 05/18/22 Blood Culture #2 05/18/22 Microbiology Reports TEST:Blood Culture, Second Order STATUS:Unauthenticated BODY SITE: SOURCE:Blood COLLECTED DATE/TIME:05/18/22 11:02 AMBlood Culture, Second Order SPECIMEN DESCRIPTION : BLOOD LAC SPECIAL REQUESTS : NONE Test performed at [facility], [address] [place], [place], Cora Snyder MD, Med Director, [facility] [id number] CULTURE : NO GROWTH AFTER 24 HOURS REPORT STATUS : PRELIMINARY REPORT TEST:Blood Culture STATUS:Unauthenticated BODY SITE: SOURCE:Blood COLLECTED DATE/TIME:05/18/22 11:00 AMBlood Culture SPECIMEN DESCRIPTION : BLOOD LAC SPECIAL REQUESTS : NONE Test performed at [facility], [address], [place], Cora Snyder MD, Med Director, [facility] [id number] CULTURE : NO GROWTH AFTER 24 HOURS REPORT STATUS : PRELIMINARY REPORT Radiology Reports Exam Date Time Procedure Performing Provider Status 05/18/22 11:19 AM Chest Portable Maryam Yen; Auth (Steven fernández) Notes:(Chest Portable) Reason For Exam: Tube PlacementRESULT: Chest Portable Chest Portable HX OF PRESENT ILLNESS: Pt sts he is off his Abilify x2 months b c I want pills and not the shot . Pt sts he has a Granado Order. Pt presents paranoid in triage. Denies SI HI in triage.; Reason: Tube Placement; Clinical Question(s): Tube Placement / Tube Placement COMPARISON: 05/14/2022 FINDINGS: LINES AND TUBES: Tracheal tube ends 4.9 cm above the jayjay. Enteric tube courses below the diaphragm, tip not included in the [id number]. LUNGS AND PLEURA: Mild patchy left basilar opacity. No pleural effusion. No pneumothorax. HEART, MEDIASTINUM AND BISHOP: Heart is normal in size. Normal mediastinal and hilar contour. BONES AND SOFT TISSUES: No acute abnormality. IMPRESSION: 1. Support structures as above. 2. Mild patchy opacity at the left base, could be due to atelectasis, aspiration, or pneumonia. WSN: [id number] Ordering Physician: Marcin Alva Dictated By: Siva Lundberg MD Dictated Date/Time: 05/18/22 11:50 a Reviewed By: Siva Lundberg MD Signed By: Siva Lundberg MD Signed Date/Time: 05/18/22 11:50 am Transcribed By: ASTON Transcribed Date/Time: 05/18/22 11:49 am Vital Signs Most recent to oldest 1 2 3 [Reference Range]: Height 170 cm 170 cm 170 cm (05/18/22 1:23 PM) (05/17/22 5:20 PM) (05/17/22 5:1 6 PM) Weight 71.6 kg 69.9 kg 69.9 kg (05/18/22 1:23 PM) (05/17/22 5:20 PM) (05/17/22 5:1 6 PM) Oxygen Saturation [94-100 %] 99 % 99 % 98 % (05/19/22 2:00 PM) (05/19/22 1:30 PM) (05/19/22 1:0 0 PM) Pulse Rate [55-90 bpm] 100 bpm 89 bpm 86 bpm *H* (05/18/22 12:30 PM) (05/18/22 12:2 0 PM) (05/18/22 1:23 PM) Body Mass Index [18.5-24.99] 24.78 24.19 (05/18/22 1:23 PM) (05/17/22 5:16 PM) Blood Pressure [90-138/55-84 103/66 mm Hg 97/66 mm Hg 99/ 66 mm Hg mm Hg] (05/19/22 2:00 PM) (05/19/22 1:30 PM) (05/19/22 1:0 0 PM) Respiratory Rate [16-30 16 br/min 16 br/min 32 br/mi n br/min] (05/19/22 3:31 PM) (05/19/22 2:00 PM) *H* (05/19/22 1:30 PM ) Temperature [96.8-100.4 97.7 DegF 96.9 DegF 97.6 Deg F DegF] (05/19/22 12:00 PM) (05/19/22 8:00 AM) (05/19/22 4: 00 AM) Mode of Delivery (Oxygen) Ventilator Ventilator Ventil ator (05/19/22 1:30 PM) (05/19/22 1:00 PM) (05/19/22 12: 30 PM) Blood pressure sites Arm, right Arm, right Arm, right (05/19/22 2:00 PM) (05/19/22 1:00 PM) (05/19/22 12: 30 PM) Temperature Route Axillary Axillary Axillary (05/19/22 12:00 PM) (05/19/22 8:00 AM) (05/19/22 4: 00 AM) Dry Weight 71.6 kg 69.9 kg 69.9 kg (05/18/22 1:23 PM) (05/17/22 5:20 PM) (05/17/22 5:1 6 PM) Weight Obtained Via Bed scale (05/18/22 1:23 PM) Social History Social History Type Response Tobacco Other: 2-3 cigarettes per da y. Type: Cigarettes. Sex Male
--- OUTSIDE RECORDS SUMMARY | 2022-07-04 13:57 | XMS_ITS | Continuity of Care Document ---
:1990 Author Organization [facility] Address [address] [place] [address]- Care Team Providers Name Role Phone Leslie Garcia MD Primary Care Physician [place] [facility] [place](s): 02/25/22 - 02/25/[address] [address]- Encounter Diagnosis Cellulitis (Final) - 02/25/22 Discharge Disposition: A-D/C Home Attending Physician: Nakul Pederson MD Admitting Physician: Nakul Pederson MD Referring Physician: Not on Staff, Referring [...] 01/26/22 10:53:00 EDT, Route to Pharmacy Electronically, [facility], Partial fill upon patient request if the prescription is for a... Start Date: 01/26/22 Stop Date: 02/02/22 Status: Orderedbenztropine 1 mg oral tablet TAKE 1 TABLET BY MOUTH TWICE A DAY Start Date: 01/05/21 Status: Orderedcephalexin monohydrate 500 mg oral capsule 1 capsule = 500 mg, By Mouth, 4 times a day, for 6 days, # 24 capsule, 0 Refills, Acute 03/03/22 16:39:00 EDT, 02/25/22 16:39:00 EDT, Capsule, [facility], Partial fill upon patient request if the prescription is for a schedule II opioid... Start Date: 02/25/22 Stop Date: 03/03/22 Status: Orderedcephalexin monohydrate 500 mg oral capsule 1 capsule = 500 mg, By Mouth, 4 times a day, for 7 days, # 28 capsule, 0 Refills, Acute 03/03/22 23:16:00 EDT, 02/24/22 23:16:00 EDT, Capsule, [facility], Partial fill upon patient request ifthe prescription is for a schedule II opioid drug... Start Date: 02/24/22 Stop Date: 03/03/22 Status: Orderedclozapine 100 mg oral tablet 1 [...] 0 Refills, Maintenance, 01/26/22 10:53:00 EDT, Tablet, [facility], Partial fill upon patient request if the prescription is for a schedule II opioid drug., 180, cm... Start Date: 01/26/22 Stop Date: 02/02/22 Status: Ordereddivalproex sodium 500 mg oral enteric coated tablet = 1,000 mg, By Mouth, Daily at bedtime, Blister pack, # 14 tablet, 0 Refills, Maintenance, 01/26/22 10:53:00 EDT, Tablet, [facility], Partial fill upon patient request if [...] 11 Refills, Maintenance, 03/07/21 10:59:00 EDT, [facility] STORE 02004, 180.34, cm, 12/15/20 8:00:00 EST, Height Start [...] Refills, Soft Stop, 01/05/21 9:56:00 EDT, [facility]/pharmacy #[id number],Partial fill upon patient request if [...] Maintenance,01/26/22 10:53:00 EDT, Route to Pharmacy Electronically, [facility], Partial fill upon patient request if [...] Refills, Maintenance, 08/22/21 23:09:00 EST, EC Capsule, [facility], Partial fill upon patient request if [...] 08/18/21 11:51:00 EST, Route to Pharmacy Electronically, [facility], Partial fill u... Start Date: 08/18/21 Status: Ordered Problem List Condition Effective Dates Status Health Status Informant Antisocial personality Active features(Confirmed) Cannabis dependence with current Active use(Confirmed) Cocaine use disorder(Confirmed) Active Hypothyroid(Confirmed) Active Lives in detention - Active [place](Confirmed) Violent behavior(Confirmed) Active Vital Signs Most recent to oldest 1 2 3 [Reference Range]: Oxygen Saturation [94-100 %] 100 % 100 % 100 % (02/25/22 5:24 PM) (02/25/22 4:25 PM) (02/25/22 3:3 6 PM) Pulse Rate [55-90 bpm] 83 bpm 81 bpm 88 bpm (02/25/22 5:24 PM) (02/25/22 4:25 PM) (02/25/22 3:3 6 PM) Blood Pressure [90-138/55-84 mm 110/59 mm Hg 113/58 mm Hg 104/52 mm Hg Hg] (02/25/22 5:24 PM) (02/25/22 4:25 PM) (02/25/22 3:3 6 PM) Respiratory Rate [16-30 br/min] 18 br/min 19 br/min 18 br/min (02/25/22 5:24 PM) (02/25/22 4:25 PM) (02/25/22 1:4 1 PM) Temperature [96.8-100.4 DegF] 98.3 DegF 98.0 DegF 98 .2 DegF (02/25/22 5:24 PM) (02/25/22 4:25 PM) (02/25/22 3:3 6 PM) Mode of Delivery (Oxygen) Room air Room air Room a ir (02/25/22 5:24 PM) (02/25/22 4:25 PM) (02/25/22 3:3 6 PM) Blood pressure sites Arm, right Arm, right Arm, right (02/25/22 5:24 PM) (02/25/22 4:25 PM) (02/25/22 3:3 6 PM) Temperature Route Oral Oral Oral (02/25/22 5:24 PM) (02/25/22 4:25 PM) (02/25/22 3:3 6 PM) Social History Social History Type Response Tobacco Other: 2-3 cigarettes per da y. Type: Cigarettes. Sex Male
--- OUTSIDE RECORDS SUMMARY | 2022-07-04 13:57 | XMS_ITS | Continuity of Care Document ---
:1990 Author Organization [facility] Address [address] [place] [address]- Care Team Providers Name Role Phone Vivien Flores DO Primary Care Physician [facility] Date(s): 06/01/21 - 07/01/21 [facility] [address], [place] [address] Allergies, Adverse Reactions, Alerts Substance Reaction Severity [...] tablet, 11 Refills, Maintenance, 03/07/21 10:59:00 EDT, [facility] STORE [id number], 180.34, cm, 12/15/20 8:00:00 EST, Height Start Date: 03/07/21 Status: OrderedNarcan 4 mg/0.1 mL nasal spray = 4 mg, Nares, Both, Once, # 2 each, 0 Refills, Soft Stop, 01/05/21 9:56:00 EDT, [facility]/pharmacy #[id number],Partial fill upon patient request if [...] Refills, Maintenance, 01/05/21 9:58:00 EDT, EC Capsule, [facility]/pharmacy #[id number], Partial fill upon patient request if the prescription is for a schedule II opioid drug., 180.34, cm, 12/15/20 8:00:00 EST,... Start Date: 01/05/21 Status: Orderedpropranolol 40 mg oral tablet 40 mg, 1, tablet, By Mouth, 2 times a day, # 60 tablet, Refills 11, Tot. Refills 11, Maintenance, 01/05/21 9:57:00 EDT, Route to Pharmacy Electronically, [facility]/pharmacy #[id number], Partial fill upon patient request if the prescription is for a schedule II op... Start Date: 01/05/21 Status: Ordered Problem List Condition Effective Dates Status Health Status Informant Antisocial personality Active features(Confirmed) Cannabis dependence with current Active use(Confirmed) Cocaine use disorder(Confirmed) Active Hypothyroid(Confirmed) Active Lives in retirement - Active [facility](Confirmed) Violent behavior(Confirmed) Active Social History Social History Type Response Tobacco Other: 2-3 cigarettes per da y. Type: Cigarettes. Sex Male
--- OUTSIDE RECORDS SUMMARY | 2022-07-04 13:57 | XMS_ITS | Continuity of Care Document ---
:1990 Author Organization [facility] Address [address] [place] [address]- Care Team Providers Name Role Phone Vivien Flores DO Primary Care Physician Encounter [facility] Date(s): 08/03/21 - 09/02/21 [facility] [address] [place], [place] [address] Attending Physician: Rose Collazo Admitting Physician: [...] 11 Refills, Maintenance, 03/07/21 10:59:00 EDT, [facility] STORE 26152, 180.34, cm, 12/15/20 8:00:00 EST, Height Start [...] Refills, Soft Stop, 01/05/21 9:56:00 EDT, [facility]/pharmacy #[id number],Partial fill upon patient request if [...] Refills, Maintenance, 08/22/21 23:09:00 EST, EC Capsule, [facility], Partial fill upon patient request if [...] 08/18/21 11:51:00 EST, Route to Pharmacy Electronically, [facility], Partial fill u... Start Date: 08/18/21 Status: Ordered Problem List Condition Effective Dates Status Health Status Informant Antisocial personality Active features(Confirmed) Cannabis dependence with current Active use(Confirmed) Cocaine use disorder(Confirmed) Active Hypothyroid(Confirmed) Active [facility]) Violent behavior(Confirmed) Active Social History Social History Type Response Tobacco Other: 2-3 cigarettes per da y. Type: Cigarettes. Sex Male
--- OUTSIDE RECORDS SUMMARY | 2022-07-04 13:57 | XMS_ITS | Continuity of Care Document ---
:1990 Author Organization [facility] Address [address] [place] [address]- Care Team Providers Name Role Phone Vivien Flores DO Primary Care Physician Encounter [facility] Date(s): 05/15/21 - 06/14/21 [facility] [address] [place] [address]- Allergies, Adverse Reactions, Alerts Substance Reaction Severity [...] tablet, 11 Refills, Maintenance, 03/07/21 10:59:00 EDT, [facility] STORE [address]76, 180.34, cm, 12/15/20 8:00:00 EST, Height Start Date: 03/07/21 Status: OrderedNarcan 4 mg/0.1 mL nasal spray = 4 mg, Nares, Both, Once, # 2 each, 0 Refills, Soft Stop, 01/05/21 9:56:00 EDT, [facility]/pharmacy #[id number],Partial fill upon patient request [...] Refills, Maintenance, 01/05/21 9:58:00 EDT, EC Capsule, [facility]/pharmacy #[id number], Partial fill upon patient request if the prescription is for a schedule II opioid drug., 180.34, cm, 12/15/20 8:00:00 EST,... Start Date: 01/05/21 Status: Orderedpropranolol 40 mg oral tablet 40 mg, 1, tablet, By Mouth, 2 times a day, # 60 tablet, Refills 11, Tot. Refills 11, Maintenance, 01/05/21 9:57:00 EDT, Route to Pharmacy Electronically, [facility]/pharmacy #[id number], Partial fill upon patient request if the prescription is for a schedule II op... Start Date: 01/05/21 Status: Ordered Problem List Condition Effective Dates Status Health Status Informant Antisocial personality Active features(Confirmed) Cannabis dependence with current Active use(Confirmed) Cocaine use disorder(Confirmed) Active Hypothyroid(Confirmed) Active Lives in [facility] - Active [facility](Confirmed) Violent behavior(Confirmed) Active Social History Social History Type Response Tobacco Other: 2-3 cigarettes per da y. Type: Cigarettes. Sex Male
--- OUTSIDE RECORDS SUMMARY | 2022-07-04 13:57 | XMS_ITS | Continuity of Care Document ---
:1990 Author Organization [facility] Address [address] [place] [address]- Care Team Providers Name Role Phone Merle Rose YAÑEZ Primary Care Physician [place] [facility] [place](s): 04/26/22 - 04/27/22 [facility] [address] [place] [address]- Discharge Disposition: A-D/C Walkout Attending Physician: Not [...] 01/26/22 10:53:00 EDT, Route to Pharmacy Electronically, [facility], Partial fill upon patient request if [...] 0 Refills, Maintenance, 01/26/22 10:53:00 EDT, Tablet, [facility], Partial fill upon patient request if the prescription is for a schedule II opioid drug., 180, cm... Start Date: 01/26/22 Stop Date: 02/02/22 Status: Ordereddivalproex sodium 500 mg oral enteric coated tablet = 1,000 mg, By Mouth, Daily at bedtime, Blister pack, # 14 tablet, 0 Refills, Maintenance, 01/26/22 10:53:00 EDT, Tablet, [facility], Partial fill upon patient request if [...] Refills, Maintenance, 03/07/21 10:59:00 EDT, [facility], 180.34, cm, 12/15/20 8:00:00 EST, Height Start [...] 0 Refills, Soft Stop, 01/05/21 9:56:00 EDT, [facility]/pharmacy #[id number],Partial fill upon patient request if the prescription is for a schedule II opioid drug., 180.34, cm,12/15/20 8:00:00 EST, Height Start Date: 01/05/21 Status: Orderedolanzapine 10 mg oral tablet 10 mg, 1, tablet, By Mouth, Daily, # 14 tablet, Refills 0, Tot. Refills 0, Maintenance, 04/18/22 11:26:00 EDT, Route to Pharmacy Electronically, [facility]/pharmacy #[id number], Partial fill upon patient request ifthe [...] Maintenance,01/26/22 10:53:00 EDT, Route to Pharmacy Electronically, [facility], Partial fill upon patient request if [...] Refills, Maintenance, 08/22/21 23:09:00 EST, EC Capsule, [facility], Partial fill upon patient request if [...] 08/18/21 11:51:00 EST, Route to Pharmacy Electronically, [facility], Partial fill u... Start Date: 08/18/21 Status: Ordered Problem List Condition Effective Dates Status Health Status Informant Antisocial personality Active features(Confirmed) Cannabis dependence with current Active use(Confirmed) Cocaine use disorder(Confirmed) Active Hypothyroid(Confirmed) Active Lives in [facility] - Active [place](Confirmed) Violent behavior(Confirmed) Active Vital Signs Most recent to oldest 1 2 3 [Reference Range]: Oxygen Saturation [94-100 98 % 96 % 95 % %] (04/26/22 10:35 PM) (04/26/22 8:42 PM) (04/26/22 8: 34 PM) Pulse Rate [55-90 bpm] 87 bpm 93 bpm 105 bpm (04/26/22 10:35 PM) *H* *H* (04/26/22 8:42 PM) (04/26/22 8:34 PM) Blood Pressure 114/68 mm Hg 113/64 mm Hg [90-138/55-84 mm Hg] (04/26/22 10:35 PM) (04/26/22 8:42 PM) Respiratory Rate [16-30 20 br/min br/min] (04/26/22 8:42 PM) Temperature [96.8-100.4 97 DegF 98.5 DegF DegF] (04/26/22 10:35 PM) (04/26/22 8:42 PM) Mode of Delivery (Oxygen) Room air Room air (04/26/22 10:35 PM) (04/26/22 8:42 PM) Blood pressure sites Arm, left Arm, right (04/26/22 10:35 PM) (04/26/22 8:42 PM) Temperature Route Oral Oral (04/26/22 10:35 PM) (04/26/22 8:42 PM) Dry Weight 82 kg (04/26/22 8:42 PM) Dry Weight Obtained Via Patient/family stated (04/26/22 8:42 PM) Social History Social History Type Response Tobacco Other: 2-3 cigarettes per da y. Type: Cigarettes. Sex Male
--- OUTSIDE RECORDS SUMMARY | 2022-07-04 13:57 | XMS_ITS | Continuity of Care Document ---
:1990 Author Organization [facility] Address [address] [place] [address]- Care Team Providers Name Role Phone Merle Rose Mayer [id number]30[facility] [address] [place] [address]- Discharge Disposition: A-D/C Walkout Attending Physician: Not [...] 01/26/22 10:53:00 EDT, Route to Pharmacy Electronically, [facility], Partial fill upon patient request if [...] 0 Refills, Maintenance, 01/26/22 10:53:00 EDT, Tablet, [facility], Partial fill upon patient request if the prescription is for a schedule II opioid drug., 180, cm... Start Date: 01/26/22 Stop Date: 02/02/22 Status: Ordereddivalproex sodium 500 mg oral enteric coated tablet = 1,000 mg, By Mouth, Daily at bedtime, Blister pack, # 14 tablet, 0 Refills, Maintenance, 01/26/22 10:53:00 EDT, Tablet, [facility], Partial fill upon patient request if [...] tablet, 11 Refills, Maintenance, 03/07/21 10:59:00 EDT, [facility] STORE 50998, 180.34, cm, 12/15/20 8:00:00 EST, Height Start [...] 0 Refills, Soft Stop, 01/05/21 9:56:00 EDT, [facility]/pharmacy #[id number],Partial fill upon patient request if the prescription is for a schedule II opioid drug., 180.34, cm,12/15/20 8:00:00 EST, Height Start Date: 01/05/21 Status: Orderedolanzapine 10 mg oral tablet 10 mg, 1, tablet, By Mouth, Daily, # 14 tablet, Refills 0, Tot. Refills 0, Maintenance, 04/18/22 11:26:00 EDT, Route to Pharmacy Electronically, [facility]/pharmacy #[id number], Partial fill upon patient request ifthe [...] Maintenance,01/26/22 10:53:00 EDT, Route to Pharmacy Electronically, [facility], Partial fill upon patient request if [...] Refills, Maintenance, 08/22/21 23:09:00 EST, EC Capsule, [facility], Partial fill upon patient request if [...] 08/18/21 11:51:00 EST, Route to Pharmacy Electronically, [facility], Partial fill u... Start Date: 08/18/21 Status: Ordered Problem List Condition Effective Dates Status Health Status Informant Antisocial personality Active features(Confirmed) Cannabis dependence with current Active use(Confirmed) Cocaine use disorder(Confirmed) Active Hypothyroid(Confirmed) Active Lives in [facility] - Active [place](Confirmed) Violent behavior(Confirmed) Active Vital Signs Most recent to oldest [Reference Range]: 1 Oxygen Saturation [94-100 %] 98 % (04/29/22 8:11 PM) Pulse Rate [55-90 bpm] 73 bpm (04/29/22 8:11 PM) Blood Pressure [90-138/55-84 mm Hg] 115/79 mm Hg (04/29/22 8:11 PM) Respiratory Rate [16-30 br/min] 88 br/min *H* (04/29/22 8:11 PM) Temperature [96.8-100.4 DegF] 97.3 DegF (04/29/22 8:11 PM) Mode of Delivery (Oxygen) Room air (04/29/22 8:11 PM) Temperature Route Oral (04/29/22 8:11 PM) Social History Social History Type Response Tobacco Other: 2-3 cigarettes per da y. Type: Cigarettes. Sex Male
--- OUTSIDE RECORDS SUMMARY | 2022-07-04 13:58 | XMS_ITS | Continuity of Care Document ---
:1990 Author Organization [facility] Address [address] [place] [address]- Care Team Providers Name Role Phone Rose Bloom DO Primary Care Physician Encounter [facility] Date(s): 04/16/22 - 04/16/22 [facility] [address] [place] [address]- Encounter Diagnosis Psychiatric problem (Final) - 04/16/22 Discharge Disposition: A-D/C Home Attending Physician: Sreekanth Camara DO Admitting Physician: Sreekanth Camara DO Referring Physician: Not on Staff, Referring MD [...] 01/26/22 10:53:00 EDT, Route to Pharmacy Electronically, [facility], Partial fill upon patient request if [...] 0 Refills, Maintenance, 01/26/22 10:53:00 EDT, Tablet, [facility], Partial fill upon patient request if the prescription is for a schedule II opioid drug., 180, cm... Start Date: 01/26/22 Stop Date: 02/02/22 Status: Ordereddivalproex sodium 500 mg oral enteric coated tablet = 1,000 mg, By Mouth, Daily at bedtime, Blister pack, # 14 tablet, 0 Refills, Maintenance, 01/26/22 10:53:00 EDT, Tablet, [facility], Partial fill upon patient request if [...] tablet, 11 Refills, Maintenance, 03/07/21 10:59:00 EDT, [facility] STORE [address]27, 180.34, cm, 12/15/20 8:00:00 EST, Height Start [...] 0 Refills, Soft Stop, 01/05/21 9:56:00 EDT, [facility]/pharmacy #[id number],Partial fill upon patient [...] Maintenance,01/26/22 10:53:00 EDT, Route to Pharmacy Electronically, [facility], Partial fill upon patient request if [...] Refills, Maintenance, 08/22/21 23:09:00 EST, EC Capsule, [facility], Partial fill upon patient request if [...] 08/18/21 11:51:00 EST, Route to Pharmacy Electronically, [facility], Partial fill u... Start Date: 08/18/21 Status: Ordered Problem List Condition Effective Dates Status Health Status Informant Antisocial personality Active features(Confirmed) Cannabis dependence with current Active use(Confirmed) Cocaine use disorder(Confirmed) Active Hypothyroid(Confirmed) Active Lives in pen[facility] - Active [facility](Confirmed) Violent behavior(Confirmed) Active Results Radiology Reports Exam Date Time Procedure Performing Provider Status 04/16/22 1:06 PM Knee 1 or 2 Views Right Matt , [place]; Auth (Ve rified) Notes:(Knee 1 or 2 Views Right) Reason For Exam: PainRESULT: Knee 1 or 2 Views Right Examination: Right knee performed on 04/16/2022. History: Hx of Present Illness: pt here for anxiety and for auditory halllucinations , pt states that he ran out of his ativan pt denies SI or HI ,would also like to be seen for right leg pain, pt alsohas schizophrenia not on psych meds; Reason: Pain; Clinical Question(s): Arthritis Findings: Frontal and lateral views of the right knee are submitted. No fractures or dislocations are demonstrated. There is no joint effusion. Impression: There is no acute osseous abnormality. WSN: [id number] Ordering Physician: Linh Awad Dictated By: Ruby Ramos MD Dictated Date/Time: 04/16/22 1:30 pm Reviewed By: Ruby Ramos MD Signed By: Ruby Ramos MD Signed Date/Time: 04/16/22 1:30 pm Transcribed By: CSMonica Transcribed Date/Time: 04/16/22 1:29 pm Vital Signs Most recent to oldest 1 2 3 [Reference Range]: Oxygen Saturation [94-100 %] 96 % 98 % 98 % (04/16/22 1:44 PM) (04/16/22 10:12 AM) (04/16/22 10 :01 AM) Pulse Rate [55-90 bpm] 77 bpm 86 bpm 92 bpm (04/16/22 1:44 PM) (04/16/22 10:12 AM) *H* (04/16/22 10:01 A M) Blood Pressure [90-138/55-84 102/57 mm Hg 111/63 mm Hg mm Hg] (04/16/22 1:44 PM) (04/16/22 10:12 AM) Respiratory Rate [16-30 16 br/min 18 br/min br/min] (04/16/22 1:44 PM) (04/16/22 10:12 AM) Temperature [96.8-100.4 DegF] 98.6 DegF 98.6 DegF (04/16/22 1:44 PM) (04/16/22 10:12 AM) Mode of Delivery (Oxygen) Room air Room air Room a ir (04/16/22 1:44 PM) (04/16/22 11:34 AM) (04/16/22 10 :12 AM) Temperature Route Oral Oral (04/16/22 1:44 PM) (04/16/22 10:12 AM) Social History Social History Type Response Tobacco Other: 2-3 cigarettes per da y. Type: Cigarettes. Sex Male
--- OUTSIDE RECORDS SUMMARY | 2022-07-04 13:58 | XMS_ITS | Continuity of Care Document ---
:1990 Author Organization [facility] Address [address] [place] [address]- Care Team Providers Name Role Phone Vivien Flores DO Primary Care Physician Encounter [facility] Date(s): 08/17/21 - 09/16/21 [facility] [address] [place] [address]- Allergies, Adverse Reactions, Alerts Substance Reaction Severity [...] tablet, 11 Refills, Maintenance, 03/07/21 10:59:00 EDT, [facility] ST[facility] 97847, 180.34, cm, 12/15/20 8:00:00 EST, Height Start [...] 0 Refills, Soft Stop, 01/05/21 9:56:00 EDT, [facility]/pharmacy #[id number],Partial fill upon patient request if the [...] Refills, Maintenance, 08/22/21 23:09:00 EST, EC Capsule, [facility], Partial fill upon patient request if [...] 08/18/21 11:51:00 EST, Route to Pharmacy Electronically, [facility], Partial fill u... Start Date: 08/18/21 Status: Ordered Problem List Condition Effective Dates Status Health Status Informant Antisocial personality Active features(Confirmed) Cannabis dependence with current Active use(Confirmed) Cocaine use disorder(Confirmed) Active Hypothyroid(Confirmed) Active Lives in intermediate - Active [facility](Confirmed) Violent behavior(Confirmed) Active Social History Social History Type Response Tobacco Other: 2-3 cigarettes per da y. Type: Cigarettes. Sex Male
== END 2022-07-03 11:40 | disposition home or self-care (01) | DRG 885 ==
PROVIDERS: Admitting Provider Psychiatry & Neurology Psychiatry; Visit Provider Psychiatry & Neurology Psychiatry
DX: F25.9 Schizoaffective disorder, unspecified (principal); Z88.8 Allergy status to other drugs, medicaments and biological substances; Z79.899 Other long term (current) drug therapy
CPT/HCPCS: 36415; 80048; 80053; 80061; 80076; 80164; 82607; 82746; 83036; 84439; 84443; 85025; 97161

== ENCOUNTER 2022-07-10 18:18 | Inpatient (IN) | payer MEDICARE, MEDICAID, SELFPAY ==
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
[2022-07-10 18:36] VITALS: BP 120/68; PULSE 104; RESP 16; TEMP 36.6; O2SAT 97
--- NOTE | 2022-07-10 18:54 | PC.NURSE ---
Patient arrived to unit at 18:26 from [facility]. Patient signed into the unit with a legal status of a CV. Orders obtained from Dr. Nehemiah Pal. Vital signs at admission were 97.8, 104 HR, 16 RR, 120/68, 97% RA. Patient alert and oriented x2, person and date - unaware of location and situation. Perseverative on ankle That i rolled . Patient had an parish wrap on right ankle with metal clip. Patient handed ankle wrap over with no issues. Reports being a smoker and wants nicotine gum. Denies SI/HI/AH/VH at this time. Contracted for safety.
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
[2022-07-10 20:00] VITALS: BP 107/63; PULSE 94; RESP 18; TEMP 36.1; O2SAT 99
[2022-07-10] MEDS: Divalproex Sodium ER 250 MG TAB.ER.24H 750 MG PO (20:34)
[2022-07-10] MEDS: LORazepam 1 MG TABLET PO (21:52)
[2022-07-10] MEDS: Acetaminophen 325 MG TABLET 650 MG PO (21:52)
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
[2022-07-11] MEDS: Divalproex Sodium ER 250 MG TAB.ER.24H 750 MG PO (08:48)
--- NOTE | 2022-07-11 10:29 | HO.PM.IMCN ---
History of Present Illness Data of Consult Service Date: 07/11/22 Primary Care Provider: Unknown Physician REPLACED BY [facility] Social History Household Members: Unknown / Unable to assess Household Members Other:: Per documentation, pt lives in [facility] ([facility]) or own apartment. Housing: Apartment Unable to assess alcohol history related to: Unknown Patient Tobacco Use Status: Former Tobacco user Smoked in Last 30 Days: Yes Patient Interested in Nicotine Replacement: Yes Patient Given Instructions on How to Stop Smoking: No Second Hand Smoke Exposure: No Use of substances other than those prescribed or required for medical reasons: Yes Substance Use Type: Crack/Cocaine and Marijuana Substance Use Frequency: Daily Last Used Substance: Just Prior to Admission Currently Displaying Signs/Symptoms of Drug Intoxication Withdrawal: No Any prior treatment program specific to substance use: No Have you been hit, kicked, punched, or otherwise hurt by someone within the past year? If so, by whom?: No Do you feel safe in your current relationship?: No Current Relationship Is there a partner from a previous relationship who is making you feel unsafe now?: No Are you made to feel afraid or neglected: No Advance Directives: No Advance Directives Information Provided: No Do you have thoughts of harming others: None Do you have a plan to hurt others: No Plan Recently lost weight without trying: No Nutrition Risks: No Nutritional Risk service: No Sexual orientation: Don't Know Meds Allergies Allergy/AdvReac Type Severity Reaction Status Date / Time quetiapine [From SEROQUEL] Allergy Severe ANAPHYLAXIS Unverified 06/23/20 19:08 haloperidol [HALOPERIDOL] Allergy Intermediate SWELLING Unverified 06/23/20 19:08 Active Medications: Current Medications Acetaminophen (Acetaminophen 325 Mg Tablet) 650 mg PO Q6H PRN PRN Reason: Headache/Pain Mild Scale (1-3) Last Admin: 07/10/22 21:52 Dose: 650 mg Al Hydroxide/Mg Hydroxide (Magnesium Hydrox/Alum Hydrox 30 Ml Oral.Susp) 30 ml PO Q6H PRN PRN Reason: Heartburn/Nausea Chlorpromazine HCl (Chlorpromazine Hcl 100 Mg Tablet) 100 mg PO BEDTIME OSKAR Last Admin: 07/10/22 21:00 Dose: Not Given Chlorpromazine HCl (Chlorpromazine Hcl 100 Mg Tablet) 100 mg PO Q4H PRN PRN Reason: agitation Divalproex Sodium (Divalproex Sodium Er 250 Mg Tab.Er.24h) 750 mg PO BID OSKAR Last Admin: 07/11/22 08:48 Dose: 750 mg Hydroxyzine HCl (Hydroxyzine Hcl 25 Mg Tablet) 25 mg PO Q6H PRN PRN Reason: Anxiety Lorazepam (Lorazepam 1 Mg Tablet) 1 mg PO Q4H PRN PRN Reason: moderate anxiety Last Admin: 07/10/22 21:52 Dose: 1 mg Magnesium Hydroxide (Milk Of Magnesia 30 Ml Oral.Susp) 30 ml PO DAILY PRN PRN Reason: Constipation Nicotine Polacrilex (Nicotine Polacrilex 2 Mg Gum) 4 mg BUCCAL Q2H PRN PRN Reason: Nicotine Cravings Trazodone HCl (Trazodone Hcl 50 Mg Tablet) 50 mg PO BEDTIME PRN PRN Reason: Insomnia Physical Exam Vital Signs and Narrative: Vital Signs: Last Vital Signs Temp 97 F 07/10/22 20:00 Pulse 94 07/10/22 20:00 Resp 18 07/10/22 20:00 BP 107/63 07/10/22 20:00 Pulse Ox 99 07/10/22 20:00 O2 Del Method 07/10/22 20:00
--- NOTE | 2022-07-11 10:37 | PM.EVENT ---
Event Note Date of Service: 07/11/22 Event Note: I went to see the patient accompanied by RN, patient is alert, oriented to self, place time and doesn't want to see a medical doctor , only want to see a mental doctor . Would be happy to reasses if agreable to see us or any acute medical issue arise.
[2022-07-11] MEDS: cloNIDine HCL 0.1 MG TABLET 0.05 MG PO ×2 (12:29→21:20)
[2022-07-11] MEDS: Divalproex Sodium 250 MG TABLET.DR PO (12:30)
--- NOTE | 2022-07-11 13:10 | PC.NURSE ---
Patient signed 3 day notice
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
[2022-07-11] MEDS: chlorproMAZINE HCl 100 MG TABLET PO ×2 (17:30→21:20)
[2022-07-11 21:10] VITALS: BP 110/65; PULSE 97; RESP 16; TEMP 36.4; O2SAT 96
--- NOTE | 2022-07-12 06:26 | PC.NURSE ---
agitation/paranoia about having roommate-pt became agitated about having a roommate. ''If you want me to hurt my roommate then just keep him in there'' ''I'm warning you now, I wake up bad'' ''It won't be my fault'' ''
[2022-07-12] MEDS: cloNIDine HCL 0.1 MG TABLET 0.05 MG PO (09:53)
[2022-07-12 10:49] VITALS: BP 107/68; PULSE 110; RESP 18; TEMP 36.2; O2SAT 98
--- NOTE | 2022-07-12 16:10 | HO.PSYCHPN ---
Subjective Subjective Date of Service: 07/12/22 Reason For Visit: jovani Interim History: found found lying on his bed, awake, initially decling interview in a pique about having been offered hydroxyzine, which he asserts causes the male genitalia to shrivel and drop. he comes around a bit and engages better after MD tells him he will DC the order. medications discussed. pt asserts he did not take his VPA last night bcse it's a stimulant and he has awakened the past couple fo days feeling too anxious. MD educates pt about the class of medications to which VPA belongs, suggests he decerase his HS dosing back to 750, which is what he had been on previously, and continue with 1000 mg in the morning. he agrees. also asks for clonidine to be increased to 0.1 each dose. MD educates and warns him about hypotension. also suggests ativan may be helpful for him again at HS, MD agrees to re=prescribe it in hopes of decreasing jovani/anxiety sufficiently that he will agree to the higher dosing of VPA. Mental Status Exam Mental Status Exam Narrative: mild agitation. cooperative. PMA of pacing. speech incr in rate, amount. nml loudness, tone. decr latency. thoughts loose, digressive, tangential, delusional, paranoid. affect hyper-intense, constricted, min-labile. mood not assessed. no SI/HI/AVH reported. Diagnostics Vital Signs (24Hr): Vital Signs - 24 hr 07/11/22 21:10 07/12/22 10:49 Temperature 97.5 F 97.1 F Pulse Rate 97 110 H Respiratory Rate 16 18 Blood Pressure 110/65 107/68 Pulse Oximetry 96 98 Oxygen Delivery Method Room Air Room Air Medications Medications Current Medications Acetaminophen (Acetaminophen 325 Mg Tablet) 650 mg PO Q6H PRN PRN Reason: Headache/Pain Mild Scale (1-3) Last Admin: 07/10/22 21:52 Dose: 650 mg Al Hydroxide/Mg Hydroxide (Magnesium Hydrox/Alum Hydrox 30 Ml Oral.Susp) 30 ml PO Q6H PRN PRN Reason: Heartburn/Nausea Chlorpromazine HCl (Chlorpromazine Hcl 100 Mg Tablet) 100 mg PO BEDTIME OSKAR Last Admin: 07/11/22 21:20 Dose: 100 mg Chlorpromazine HCl (Chlorpromazine Hcl 100 Mg Tablet) 100 mg PO Q4H PRN PRN Reason: agitation Last Admin: 07/11/22 17:30 Dose: 100 mg Clonidine HCl (Clonidine Hcl 0.1 Mg Tablet) 0.1 mg PO BID OSKAR; Protocol Divalproex Sodium (Divalproex Sodium Er 500 Mg Tab.Er.24h) 1,000 mg PO DAILY OSKAR Divalproex Sodium (Divalproex Sodium Er 250 Mg Tab.Er.24h) 750 mg PO BEDTIME OSKAR Lorazepam (Lorazepam 1 Mg Tablet) 1 mg PO Q4H PRN PRN Reason: moderate anxiety Last Admin: 07/10/22 21:52 Dose: 1 mg Lorazepam (Lorazepam 1 Mg Tablet) 2 mg PO BEDTIME OSKAR Magnesium Hydroxide (Milk Of Magnesia 30 Ml Oral.Susp) 30 ml PO DAILY PRN PRN Reason: Constipation Nicotine Polacrilex (Nicotine Polacrilex 2 Mg Gum) 4 mg BUCCAL Q2H PRN PRN Reason: Nicotine Cravings Trazodone HCl (Trazodone Hcl 50 Mg Tablet) 50 mg PO BEDTIME PRN PRN Reason: Insomnia Allergies Allergies Allergy/AdvReac Type Severity Reaction Status Date / Time quetiapine [From SEROQUEL] Allergy Severe ANAPHYLAXIS Unverified 06/23/20 19:08 haloperidol [HALOPERIDOL] Allergy Intermediate SWELLING Unverified 06/23/20 19:08 Assessment & Plan Assessment & Plan (1) Schizoaffective disorder: Status: Acute Code(s): F25.9 - Schizoaffective disorder, unspecified Plan 07/10: restarted regimen on which pt was discharged last admission (thorazine 100 QHS, VPA 750 BID). 07/11: pt agreed to increase VPA to 1000 BID. he asked for medication for PTSD and clonidine 0.05 mg BID was started. pt signed 3-day notice. 07/12: pt c/o VPA being a stimulant, feeling too anxious in the morning so he refused HS dose. agreeable to continue VPA at HS at 750 mg and to take 1000 mg in the morning. also asking to increase clonidine to 0.1 mg each, which is done, and to reinstate ativan at HS, which is done as well. question of amadeo raya remains. I spent ___25___ minutes with the patient and/or on the patient floor today, greater than?50% of which was spent counseling/coordinating care. Patient educated on: medication risk/benefits Reason for contiued inpatient stay Substantial Risk for: inability to function and med/psych decompensation
[2022-07-12] MEDS: chlorproMAZINE HCl 100 MG TABLET PO (18:33)
[2022-07-12 20:47] VITALS: BP 128/72; PULSE 109; RESP 20; TEMP 36.4; O2SAT 97
[2022-07-12] MEDS: cloNIDine HCL 0.1 MG TABLET PO (20:47)
[2022-07-13] MEDS: guaiFENesin 100 MG/5 ML LIQUID PO ×4 (01:36→18:14)
[2022-07-13 09:00] VITALS: BP 111/61; PULSE 97; RESP 18; O2SAT 95
[2022-07-13] MEDS: cloNIDine HCL 0.1 MG TABLET PO ×2 (09:13→20:42)
[2022-07-13] MEDS: Nicotine Polacrilex 2 MG GUM 4 MG BUCCAL ×5 (09:48→22:52)
[2022-07-13] MEDS: chlorproMAZINE HCl 100 MG TABLET PO (11:20)
[2022-07-13] MEDS: Divalproex Sodium ER 500 MG TAB.ER.24H 1000 MG PO (11:20)
--- NOTE | 2022-07-13 12:16 | HO.PSYCHPN ---
Subjective Subjective Date of Service: 07/13/22 Reason For Visit: jovani Interim History: pt found in his room. clearly very paranoid, accusing peers of saying to him that they will crush his testes or that they are coughing directly on the phone certified indoor environmentalist to try to get him sick. had refused to take any medications other than clonidine for the past 34 hours, states he doesn't need anything else and he's feeling fine. discussion held around mood stabilizer, strongly encourages pt to take one. he agrees to restart VPA and to take it through MD's return on saturday. he also asks for thorazine this morning and states he will take it when he feels like he needs it. no other requests or complaints. per staff, refused meds aside from clonidine. refused VPA. claiming medications are shrinking his testicles. refused hospitalist consult. Mental Status Exam Mental Status Exam Narrative: mild agitation. cooperative. PMA of pacing. speech incr in rate, amount. nml loudness, tone. decr latency. thoughts loose, digressive, tangential, delusional, paranoid. affect hyper-intense, constricted, min-labile. mood not assessed. no SI/HI/AVH reported. Diagnostics Vital Signs (24Hr): Vital Signs - 24 hr 07/12/22 20:47 07/13/22 09:00 Temperature 97.5 F Pulse Rate 109 H 97 Respiratory Rate 20 18 Blood Pressure 128/72 111/61 Pulse Oximetry 97 95 Oxygen Delivery Method Room Air Room Air Medications Medications Current Medications Acetaminophen (Acetaminophen 325 Mg Tablet) 650 mg PO Q6H PRN PRN Reason: Headache/Pain Mild Scale (1-3) Last Admin: 07/10/22 21:52 Dose: 650 mg Al Hydroxide/Mg Hydroxide (Magnesium Hydrox/Alum Hydrox 30 Ml Oral.Susp) 30 ml PO Q6H PRN PRN Reason: Heartburn/Nausea Chlorpromazine HCl (Chlorpromazine Hcl 100 Mg Tablet) 100 mg PO BEDTIME OSKAR Last Admin: 07/12/22 21:28 Dose: Not Given Chlorpromazine HCl (Chlorpromazine Hcl 100 Mg Tablet) 100 mg PO Q4H PRN PRN Reason: agitation Last Admin: 07/13/22 11:20 Dose: 100 mg Clonidine HCl (Clonidine Hcl 0.1 Mg Tablet) 0.1 mg PO BID OSKAR; Protocol Last Admin: 07/13/22 09:13 Dose: 0.1 mg Divalproex Sodium (Divalproex Sodium Er 500 Mg Tab.Er.24h) 1,000 mg PO DAILY [facility] Last Admin: 07/13/22 11:20 Dose: 1,000 mg Divalproex Sodium (Divalproex Sodium Er 250 Mg Tab.Er.24h) 750 mg PO BEDTIME [facility] Last Admin: 07/12/22 21:28 Dose: Not Given Guaifenesin (Guaifenesin 100 Mg/5 Ml Liquid) 5 ml PO Q4H PRN PRN Reason: cough Last Admin: 07/13/22 05:20 Dose: 5 ml Lorazepam (Lorazepam 1 Mg Tablet) 1 mg PO Q4H PRN PRN Reason: moderate anxiety Last Admin: 07/10/22 21:52 Dose: 1 mg Lorazepam (Lorazepam 1 Mg Tablet) 2 mg PO BEDTIME [facility] Last Admin: 07/12/22 21:28 Dose: Not Given Magnesium Hydroxide (Milk Of Magnesia 30 Ml Oral.Susp) 30 ml PO DAILY PRN PRN Reason: Constipation Nicotine Polacrilex (Nicotine Polacrilex 2 Mg Gum) 4 mg BUCCAL Q2H PRN PRN Reason: Nicotine Cravings Last Admin: 07/13/22 09:48 Dose: 2 mg Trazodone HCl (Trazodone Hcl 50 Mg Tablet) 50 mg PO BEDTIME PRN PRN Reason: Insomnia Allergies Allergies Allergy/AdvReac Type Severity Reaction Status Date / Time quetiapine [From SEROQUEL] Allergy Severe ANAPHYLAXIS Unverified 06/23/20 19:08 haloperidol [HALOPERIDOL] Allergy Intermediate SWELLING Unverified 06/23/20 19:08 Assessment & Plan Assessment & Plan (1) Schizoaffective disorder: Status: Acute Code(s): F25.9 - Schizoaffective disorder, unspecified Plan 07/10: restarted regimen on which pt was discharged last admission (thorazine 100 QHS, VPA 750 BID). 07/11: pt agreed to increase VPA to 1000 BID. he asked for medication for PTSD and clonidine 0.05 mg BID was started. pt signed 3-day notice. 07/12: pt c/o VPA being a stimulant, feeling too anxious in the morning so he refused HS dose. agreeable to continue VPA at HS at 750 mg and to take 1000 mg in the morning. also asking to increase clonidine to 0.1 mg each, which is done, and to reinstate ativan at HS, which is done as well. question of amadeo raya remains. 07/13: not compliant with meds in past 24H. more overtly paranoid and delusional today re peers. agrees to take VPA and thorazine this morning and to continue VPA through MD's return on saturday. concerning that continued non-compliance with meds will lead to decompensation and violence. I spent ___25___ minutes with the patient and/or on the patient floor today, greater than?50% of which was spent counseling/coordinating care. Reason for contiued inpatient stay Substantial Risk for: harm to others, inability to function and rapid decompensation
[2022-07-13] MEDS: LORazepam 1 MG TABLET PO ×2 (15:11→23:17)
[2022-07-13 18:00] VITALS: BP 122/75; PULSE 98; TEMP 36.6; O2SAT 99
[2022-07-13] MEDS: Divalproex Sodium ER 250 MG TAB.ER.24H 750 MG PO (20:42)
[2022-07-13] MEDS: LORazepam 1 MG TABLET 2 MG PO (20:42)
[2022-07-14] MEDS: guaiFENesin 100 MG/5 ML LIQUID PO ×3 (01:52→19:10)
[2022-07-14] MEDS: Nicotine Polacrilex 2 MG GUM 4 MG BUCCAL ×3 (05:34→22:33)
[2022-07-14 08:45] VITALS: BP 116/73; PULSE 88; RESP 18; O2SAT 99
[2022-07-14] MEDS: LORazepam 1 MG TABLET PO (08:46)
[2022-07-14] MEDS: cloNIDine HCL 0.1 MG TABLET PO ×2 (08:46→20:51)
[2022-07-14] MEDS: Divalproex Sodium ER 500 MG TAB.ER.24H 1000 MG PO (08:46)
--- NOTE | 2022-07-14 10:26 | HO.PSYCHPN ---
Subjective Subjective Date of Service: 07/14/22 Reason For Visit: jovani Subjective Notes: 3 Day (07/19/22) Interim History: Reports he is well. Team reports 2 hours of sleep with pacing. Pt states this is just me. Paranoia persists-asks team for medications, food to be sealed prior to his acceptance. Medication Compliance: Yes Side effects from medications: No Attending Groups: Yes Review of Systems Acute medical concerns: No Medical Review of Systems: unchanged Mental Status Exam Mental Status Exam Patient Appearance: Appropriate Patient Orientation: Person, Place, Time and Situation Level of Consciousness: Alert Patient Behavior: Guarded, Talkative and Good Eye Contact Mood Description: Withdrawn Affect Description: Withdrawn Patient Cognition Impaired: No Ability to Follow Directions: Good Speech Pattern: Clear and Spontaneous Speech Memory Description: Episodic Impaired Hallucinations: None (denies) Delusions: Present Thought Process: Illogical and Distracted Thought Content: positive for Suicidal Ideation (denies) Depressive Symptoms: Insomnia and Difficulty Sleeping Abnormal Motor Activity Signs and Symptoms: Restlessness Judgement: Fair Diagnostics Vital Signs (24Hr): Vital Signs - 24 hr 07/13/22 18:00 07/14/22 08:45 Temperature 97.8 F Pulse Rate 98 88 Respiratory Rate 18 Blood Pressure 122/75 116/73 Pulse Oximetry 99 99 Oxygen Delivery Method Room Air Room Air Medications Medications Current Medications Acetaminophen (Acetaminophen 325 Mg Tablet) 650 mg PO Q6H PRN PRN Reason: Headache/Pain Mild Scale (1-3) Last Admin: 07/10/22 21:52 Dose: 650 mg Al Hydroxide/Mg Hydroxide (Magnesium Hydrox/Alum Hydrox 30 Ml Oral.Susp) 30 ml PO Q6H PRN PRN Reason: Heartburn/Nausea Chlorpromazine HCl (Chlorpromazine Hcl 100 Mg Tablet) 100 mg PO BEDTIME [facility] Last Admin: 07/13/22 20:42 Dose: Not Given Chlorpromazine HCl (Chlorpromazine Hcl 100 Mg Tablet) 100 mg PO Q4H PRN PRN Reason: agitation Last Admin: 07/13/22 11:20 Dose: 100 mg Clonidine HCl (Clonidine Hcl 0.1 Mg Tablet) 0.1 mg PO BID OSK[facility]; Protocol Last Admin: 07/14/22 08:46 Dose: 0.1 mg Divalproex Sodium (Divalproex Sodium Er 500 Mg Tab.Er.24h) 1,000 mg PO DAILY [facility] Last Admin: 07/14/22 08:46 Dose: 1,000 mg Divalproex Sodium (Divalproex Sodium Er 250 Mg Tab.Er.24h) 750 mg PO BEDTIME [facility] Last Admin: 07/13/22 20:42 Dose: 750 mg Guaifenesin (Guaifenesin 100 Mg/5 Ml Liquid) 5 ml PO Q4H PRN PRN Reason: cough Last Admin: 07/14/22 05:32 Dose: 5 ml Lorazepam (Lorazepam 1 Mg Tablet) 1 mg PO Q4H PRN PRN Reason: moderate anxiety Last Admin: 07/14/22 08:46 Dose: 1 mg Lorazepam (Lorazepam 1 Mg Tablet) 2 mg PO BEDTIME [facility] Last Admin: 07/13/22 20:42 Dose: 2 mg Magnesium Hydroxide (Milk Of Magnesia 30 Ml Oral.Susp) 30 ml PO DAILY PRN PRN Reason: Constipation Nicotine Polacrilex (Nicotine Polacrilex 2 Mg Gum) 4 mg BUCCAL Q2H PRN PRN Reason: Nicotine Cravings Last Admin: 07/14/22 05:34 Dose: 4 mg Trazodone HCl (Trazodone Hcl 50 Mg Tablet) 50 mg PO BEDTIME PRN PRN Reason: Insomnia Allergies Allergies Allergy/AdvReac Type Severity Reaction Status Date / Time quetiapine [From SEROQUEL] Allergy Severe ANAPHYLAXIS Unverified 06/23/20 19:08 haloperidol [HALOPERIDOL] Allergy Intermediate SWELLING Unverified 06/23/20 19:08 Assessment & Plan Assessment & Plan (1) Schizoaffective disorder: Status: Acute Code(s): F25.9 - Schizoaffective disorder, unspecified Plan 07/10: restarted regimen on which pt was discharged last admission (thorazine 100 QHS, VPA 750 BID). 07/11: pt agreed to increase VPA to 1000 BID. he asked for medication for PTSD and clonidine 0.05 mg BID was started. pt signed 3-day notice. 07/12: pt c/o VPA being a stimulant, feeling too anxious in the morning so he refused HS dose. agreeable to continue VPA at HS at 750 mg and to take 1000 mg in the morning. also asking to increase clonidine to 0.1 mg each, which is done, and to reinstate ativan at HS, which is done as well. question of amadeo jamestien remains. 07/13: not compliant with meds in past 24H. more overtly paranoid and delusional today re peers. agrees to take VPA and thorazine this morning and to continue VPA through MD's return on saturday. concerning that continued non-compliance with meds will lead to decompensation and violence. 07/14/22- Increase Chlorpromazine to 200 mg tonight to assist with sleep. Re-eval ongoing. I spent minutes with the patient and/or on the patient floor today, greater than?50% of which was spent counseling/coordinating care. Patient educated on: medication risk/benefits and therapeutic strategies Informed Consent: further education needed Reason for contiued inpatient stay Substantial Risk for: rapid decompensation
[2022-07-14] MEDS: chlorproMAZINE HCl 100 MG TABLET PO (10:51)
[2022-07-14 20:08] VITALS: BP 120/69; PULSE 98; RESP 18; TEMP 36.6; O2SAT 98
[2022-07-14] MEDS: LORazepam 1 MG TABLET 2 MG PO (20:24)
[2022-07-14] MEDS: Divalproex Sodium ER 250 MG TAB.ER.24H 750 MG PO (20:24)
[2022-07-15] MEDS: Nicotine Polacrilex 2 MG GUM 4 MG BUCCAL ×3 (01:25→19:04)
[2022-07-15] MEDS: guaiFENesin 100 MG/5 ML LIQUID PO ×2 (05:41→13:15)
[2022-07-15] MEDS: LORazepam 1 MG TABLET PO ×2 (05:41→10:49)
[2022-07-15 09:36] VITALS: BP 124/71; PULSE 100; RESP 17; TEMP 36.9; O2SAT 100
[2022-07-15] MEDS: Divalproex Sodium ER 500 MG TAB.ER.24H 1000 MG PO (09:41)
[2022-07-15] MEDS: cloNIDine HCL 0.1 MG TABLET PO ×2 (09:41→19:39)
[2022-07-15] MEDS: chlorproMAZINE HCl 100 MG TABLET PO (12:51)
--- NOTE | 2022-07-15 16:56 | HO.PSYCHPN ---
Subjective Subjective Date of Service: 07/15/22 Reason For Visit: jovani Interim History: Up at night, pacing, psychotic, refusing medications. In the shower when tw was to see him today. Pt using both beds in his room-team report he remains in his room for the most part, and paces often. They are encouraging him to comply with his medications. Medication Compliance: Intermittent Side effects from medications: No Review of Systems Acute medical concerns: No Medical Review of Systems: unchanged Mental Status Exam Mental Status Exam Patient Appearance: Appropriate Patient Orientation: Person, Place, Time and Situation Level of Consciousness: Alert Patient Behavior: Guarded, Talkative and Good Eye Contact Mood Description: Withdrawn Affect Description: Withdrawn Patient Cognition Impaired: No Ability to Follow Directions: Good Speech Pattern: Clear and Spontaneous Speech Memory Description: Episodic Impaired Hallucinations: None (denies) Delusions: Present Thought Process: Illogical and Distracted Thought Content: positive for Suicidal Ideation (denies) Depressive Symptoms: Insomnia and Difficulty Sleeping Abnormal Motor Activity Signs and Symptoms: Restlessness Judgement: Fair Diagnostics Vital Signs (24Hr): Vital Signs - 24 hr 07/14/22 20:08 07/15/22 09:36 Temperature 97.8 F 98.4 F Pulse Rate 98 100 Respiratory Rate 18 17 Blood Pressure 120/69 124/71 Pulse Oximetry 98 100 Oxygen Delivery Method Room Air Room Air Medications Medications Current Medications Acetaminophen (Acetaminophen 325 Mg Tablet) 650 mg PO Q6H PRN PRN Reason: Headache/Pain Mild Scale (1-3) Last Admin: 07/10/22 21:52 Dose: 650 mg Al Hydroxide/Mg Hydroxide (Magnesium Hydrox/Alum Hydrox 30 Ml Oral.Susp) 30 ml PO Q6H PRN PRN Reason: Heartburn/Nausea Chlorpromazine HCl (Chlorpromazine Hcl 100 Mg Tablet) 100 mg PO Q4H PRN PRN Reason: agitation Last Admin: 07/15/22 12:51 Dose: 100 mg Chlorpromazine HCl (Chlorpromazine Hcl 100 Mg Tablet) 200 mg PO BEDTIME OSKAR Last Admin: 07/14/22 20:50 Dose: Not Given Clonidine HCl (Clonidine Hcl 0.1 Mg Tablet) 0.1 mg PO BID [facility]; Protocol Last Admin: 07/15/22 09:41 Dose: 0.1 mg Divalproex Sodium (Divalproex Sodium Er 500 Mg Tab.Er.24h) 1,000 mg PO DAILY [facility] [place] Last Admin: 07/15/22 09:41 Dose: 1,000 mg Divalproex Sodium (Divalproex Sodium Er 250 Mg Tab.Er.24h) 750 mg PO BEDTIME [facility] [place] Last Admin: 07/14/22 20:24 Dose: 250 mg Guaifenesin (Guaifenesin 100 Mg/5 Ml Liquid) 5 ml PO Q4H PRN PRN Reason: cough Last Admin: 07/15/22 13:15 Dose: 5 ml Lorazepam (Lorazepam 1 Mg Tablet) 1 mg PO Q4H PRN PRN Reason: moderate anxiety Last Admin: 07/15/22 10:49 Dose: 1 mg Lorazepam (Lorazepam 1 Mg Tablet) 2 mg PO BEDTIME [facility] [place] Last Admin: 07/14/22 20:24 Dose: 2 mg Magnesium Hydroxide (Milk Of Magnesia 30 Ml Oral.Susp) 30 ml PO DAILY PRN PRN Reason: Constipation Nicotine Polacrilex (Nicotine Polacrilex 2 Mg Gum) 4 mg BUCCAL Q2H PRN PRN Reason: Nicotine Cravings Last Admin: 07/15/22 10:46 Dose: 2 mg Trazodone HCl (Trazodone Hcl 50 Mg Tablet) 50 mg PO BEDTIME PRN PRN Reason: Insomnia Allergies Allergies Allergy/AdvReac Type Severity Reaction Status Date / Time quetiapine [From SEROQUEL] Allergy Severe ANAPHYLAXIS Unverified 06/23/20 19:08 haloperidol [HALOPERIDOL] Allergy Intermediate SWELLING Unverified 06/23/20 19:08 Assessment & Plan Assessment & Plan (1) Schizoaffective disorder: Status: Acute Code(s): F25.9 - Schizoaffective disorder, unspecified Plan 07/10: restarted regimen on which pt was discharged last admission (thorazine 100 QHS, VPA 750 BID). 07/11: pt agreed to increase VPA to 1000 BID. he asked for medication for PTSD and clonidine 0.05 mg BID was started. pt signed 3-day notice. 07/12: pt c/o VPA being a stimulant, feeling too anxious in the morning so he refused HS dose. agreeable to continue VPA at HS at 750 mg and to take 1000 mg in the morning. also asking to increase clonidine to 0.1 mg each, which is done, and to reinstate ativan at HS, which is done as well. question of lisaolena theocallie remains. 07/13: not compliant with meds in past 24H. more overtly paranoid and delusional today re peers. agrees to take VPA and thorazine this morning and to continue VPA through MD's return on saturday. concerning that continued non-compliance with meds will lead to decompensation and violence. 07/14/22- Increase Chlorpromazine to 200 mg tonight to assist with sleep. Re-eval ongoing. 07/15/22- Encourage treatment compliance I spent minutes with the patient and/or on the patient floor today, greater than?50% of which was spent counseling/coordinating care. Informed Consent: further education needed Reason for contiued inpatient stay Substantial Risk for: harm to self, harm to others, inability to function and rapid decompensation
[2022-07-15 19:10] VITALS: BP 101/62; PULSE 99; RESP 16; TEMP 36.4; O2SAT 100
[2022-07-15] MEDS: Divalproex Sodium ER 250 MG TAB.ER.24H 750 MG PO (19:39)
[2022-07-15] MEDS: LORazepam 1 MG TABLET 2 MG PO (19:40)
[2022-07-16] MEDS: Acetaminophen 325 MG TABLET 650 MG PO (00:31)
[2022-07-16] MEDS: Nicotine Polacrilex 2 MG GUM 4 MG BUCCAL ×3 (00:51→23:14)
[2022-07-16] MEDS: LORazepam 1 MG TABLET PO ×2 (01:07→16:38)
[2022-07-16 09:10] VITALS: BP 115/64; PULSE 96; RESP 16; TEMP 36.6; O2SAT 99
[2022-07-16] MEDS: Divalproex Sodium ER 500 MG TAB.ER.24H 1000 MG PO (09:22)
[2022-07-16] MEDS: cloNIDine HCL 0.1 MG TABLET PO ×2 (09:22→22:14)
--- NOTE | 2022-07-16 09:25 | PC.NURSE ---
Patient scheduled for 1000mg of depakote at 0900. Patient stated I will only take one of those . Patient proceeded to take 1 500mg pill of depakote.
--- NOTE | 2022-07-16 14:34 | PC.NURSE ---
Patient pacing halls making statements and outburst such as wait til I start using cocaine and watch what I start doing to them and wait til I get gun and shoot her .
--- NOTE | 2022-07-16 18:11 | HO.PSYCHPN ---
Subjective Subjective Date of Service: 07/16/22 Reason For Visit: jovani Interim History: Refusal of medications, restricting of some doses, pacing, self-dialoguing with violent themes of killing, anger, threatening. Agitated. Responds to activity and team support. Psychotic, at risk Medication Compliance: Intermittent Side effects from medications: No Attending Groups: Intermittent Review of Systems Acute medical concerns: No Medical Review of Systems: unchanged Mental Status Exam Mental Status Exam Patient Appearance: Appropriate Patient Orientation: Person, Place, Time and Situation Level of Consciousness: Alert Patient Behavior: Guarded, Talkative, Suspicious, Aggressive, Belligerent, Wandering, Resistive to Care, Avoidant, Distractible, Isolative, Good Eye Contact and Impulsive Mood Description: Withdrawn, Hostile and Angry Affect Description: Withdrawn, Hostile and Angry Patient Cognition Impaired: No Ability to Follow Directions: Good Speech Pattern: Clear, Perseverating and Spontaneous Speech Memory Description: Episodic Impaired Hallucinations: Auditory Delusions: Paranoid Ideation and Present Perceptual Disturbances: Depersonalization, Derealization and Hallucinations Thought Process: Illogical, Distracted and Rumination Thought Content: positive for Obsessional Thoughts, positive for Circumstantial, positive for Perseveration, positive for Thought Blocking and positive for Homicidal Ideation Depressive Symptoms: Insomnia and Difficulty Sleeping Abnormal Motor Activity Signs and Symptoms: Restlessness Judgement: Poor Diagnostics Vital Signs (24Hr): Vital Signs - 24 hr 07/15/22 19:10 07/16/22 09:10 Temperature 97.6 F 97.8 F Pulse Rate 99 96 Respiratory Rate 16 16 Blood Pressure 101/62 115/64 Pulse Oximetry 100 99 Oxygen Delivery Method Room Air Room Air Medications Medications Current Medications Acetaminophen (Acetaminophen 325 Mg Tablet) 650 mg PO Q6H PRN PRN Reason: Headache/Pain Mild Scale (1-3) Last Admin: 07/16/22 00:31 Dose: 325 mg Al Hydroxide/Mg Hydroxide (Magnesium Hydrox/Alum Hydrox 30 Ml Oral.Susp) 30 ml PO Q6H PRN PRN Reason: Heartburn/Nausea Chlorpromazine HCl (Chlorpromazine Hcl 100 Mg Tablet) 100 mg PO Q4H PRN PRN Reason: agitation Last Admin: 07/15/22 12:51 Dose: 100 mg Chlorpromazine HCl (Chlorpromazine Hcl 100 Mg Tablet) 200 mg PO BEDTIME [facility] Last Admin: 07/15/22 19:43 Dose: Not Given Clonidine HCl (Clonidine Hcl 0.1 Mg Tablet) 0.1 mg PO BID [facility]; Protocol Last Admin: 07/16/22 09:22 Dose: 0.1 mg Divalproex Sodium (Divalproex Sodium Er 500 Mg Tab.Er.24h) 1,000 mg PO DAILY [facility] Last Admin: 07/16/22 09:22 Dose: 500 mg Divalproex Sodium (Divalproex Sodium Er 250 Mg Tab.Er.24h) 750 mg PO BEDTIME [facility] Last Admin: 07/15/22 19:39 Dose: 750 mg Guaifenesin (Guaifenesin 100 Mg/5 Ml Liquid) 5 ml PO Q4H PRN PRN Reason: cough Last Admin: 07/15/22 13:15 Dose: 5 ml Lorazepam (Lorazepam 1 Mg Tablet) 2 mg PO BEDTIME [facility] Last Admin: 07/15/22 19:40 Dose: 2 mg Lorazepam (Lorazepam 1 Mg Tablet) 1 mg PO Q4H PRN PRN Reason: moderate anxiety Last Admin: 07/16/22 16:38 Dose: 1 mg Magnesium Hydroxide (Milk Of Magnesia 30 Ml Oral.Susp) 30 ml PO DAILY PRN PRN Reason: Constipation Nicotine Polacrilex (Nicotine Polacrilex 2 Mg Gum) 4 mg BUCCAL Q2H PRN PRN Reason: Nicotine Cravings Last Admin: 07/16/22 14:29 Dose: 4 mg Trazodone HCl (Trazodone Hcl 50 Mg Tablet) 50 mg PO BEDTIME PRN PRN Reason: Insomnia Allergies Allergies Allergy/AdvReac Type Severity Reaction Status Date / Time quetiapine [From SEROQUEL] Allergy Severe ANAPHYLAXIS Unverified 06/23/20 19:08 haloperidol [HALOPERIDOL] Allergy Intermediate SWELLING Unverified 06/23/20 19:08 Assessment & Plan Assessment & Plan (1) Schizoaffective disorder: Status: Acute Code(s): F25.9 - Schizoaffective disorder, unspecified Plan 07/10: restarted regimen on which pt was discharged last admission (thorazine 100 QHS, VPA 750 BID). 07/11: pt agreed to increase VPA to 1000 BID. he asked for medication for PTSD and clonidine 0.05 mg BID was started. pt signed 3-day notice. 07/12: pt c/o VPA being a stimulant, feeling too anxious in the morning so he refused HS dose. agreeable to continue VPA at HS at 750 mg and to take 1000 mg in the morning. also asking to increase clonidine to 0.1 mg each, which is done, and to reinstate ativan at HS, which is done as well. question of amadeo raya remains. 07/13: not compliant with meds in past 24H. more overtly paranoid and delusional today re peers. agrees to take VPA and thorazine this morning and to continue VPA through MD's return on saturday. concerning that continued non-compliance with meds will lead to decompensation and violence. 07/14/22- Increase Chlorpromazine to 200 mg tonight to assist with sleep. Re-eval ongoing. 07/15/22- Encourage treatment compliance 07/16/22- Decrease Chlorpromazine back to 100 mg- Offer structure, support. Enc compliance. I spent minutes with the patient and/or on the patient floor today, greater than?50% of which was spent counseling/coordinating care. Informed Consent: does not understand Reason for contiued inpatient stay Substantial Risk for: harm to self, harm to others, inability to function, rapid decompensation and med/psych decompensation
[2022-07-16] MEDS: Divalproex Sodium ER 250 MG TAB.ER.24H 750 MG PO (22:13)
[2022-07-16] MEDS: LORazepam 1 MG TABLET 2 MG PO (22:14)
[2022-07-17] MEDS: LORazepam 1 MG TABLET PO ×3 (01:05→19:21)
[2022-07-17] MEDS: Nicotine Polacrilex 2 MG GUM 4 MG BUCCAL ×4 (01:06→20:28)
[2022-07-17] MEDS: guaiFENesin 100 MG/5 ML LIQUID PO (04:44)
[2022-07-17 08:10] VITALS: BP 101/59; PULSE 90; RESP 18; TEMP 36.7; O2SAT 100
[2022-07-17] MEDS: Divalproex Sodium ER 500 MG TAB.ER.24H 1000 MG PO (08:19)
[2022-07-17] MEDS: cloNIDine HCL 0.1 MG TABLET PO ×2 (08:19→21:10)
[2022-07-17] MEDS: chlorproMAZINE HCl 100 MG TABLET PO ×2 (11:35→21:10)
--- NOTE | 2022-07-17 16:05 | P.PNPSI_ITS ---
Subjective Subjective Date of Service: 07/17/22 Reason For Visit: jovani Interim History: pt has not been taking the full doses of VPA over the weekend. he presents as more floridly psychotic, delusional, and labile than prior. after much digressive delusional discussion, pt ultimately agrees to rescind his 3-day notice today and take all prescribed meds for the next 3 days with plan to discharge at the end of that period. he rescinded his 3-day notice and then promptly submitted another. per staff, 3-day up today. not attending groups. paranoid and guarded. pacing, RIS, yelling at random people on the unit, making racist and sexist comments, talking about raping and killing people. coughing, right eye bloodshot. long uncomfortable stares at others. Mental Status Exam Mental Status Exam Narrative: moderate agitation. cooperative. PMA of pacing. speech incr in rate, amount. nml loudness, tone. decr latency. thoughts loose, digressive, tangential, delusional, paranoid. affect hyper-intense, constricted, labile. mood not assessed. no SI/HI/VH reported. claims people are saying things to him such as they will kick his ankle or crush his testicles of that he is a n*gger, which are nearly certainly AH. Diagnostics Vital Signs (24Hr): Vital Signs - 24 hr 07/17/22 08:10 Temperature 98.0 F Pulse Rate 90 Respiratory Rate 18 Blood Pressure 101/59 L Pulse Oximetry 100 Oxygen Delivery Method Room Air Medications Medications Current Medications Acetaminophen (Acetaminophen 325 Mg Tablet) 650 mg PO Q6H PRN PRN Reason: Headache/Pain Mild Scale (1-3) Last Admin: 07/16/22 00:31 Dose: 325 mg Al Hydroxide/Mg Hydroxide (Magnesium Hydrox/Alum Hydrox 30 Ml Oral.Susp) 30 ml PO Q6H PRN PRN Reason: Heartburn/Nausea Chlorpromazine HCl (Chlorpromazine Hcl 100 Mg Tablet) 100 mg PO Q4H PRN PRN Reason: agitation Last Admin: 07/17/22 11:35 Dose: 100 mg Chlorpromazine HCl (Chlorpromazine Hcl 100 Mg Tablet) 100 mg PO BEDTIME [facility] Last Admin: 07/16/22 22:14 Dose: Not Given Clonidine HCl (Clonidine Hcl 0.1 Mg Tablet) 0.1 mg PO BID [facility]; Protocol Last Admin: 07/17/22 08:19 Dose: 0.1 mg Divalproex Sodium (Divalproex Sodium Er 500 Mg Tab.Er.24h) 1,000 mg PO DAILY [facility] Last Admin: 07/17/22 08:19 Dose: 1,000 mg Divalproex Sodium (Divalproex Sodium Er 250 Mg Tab.Er.24h) 750 mg PO BEDTIME [facility] Last Admin: 07/16/22 22:13 Dose: 250 mg Guaifenesin (Guaifenesin 100 Mg/5 Ml Liquid) 5 ml PO Q4H PRN PRN Reason: cough Last Admin: 07/17/22 04:44 Dose: 5 ml Lorazepam (Lorazepam 1 Mg Tablet) 2 mg PO BEDTIME [facility] Last Admin: 07/16/22 22:14 Dose: 2 mg Lorazepam (Lorazepam 1 Mg Tablet) 1 mg PO Q4H PRN PRN Reason: moderate anxiety Last Admin: 07/17/22 08:20 Dose: 1 mg Magnesium Hydroxide (Milk Of Magnesia 30 Ml Oral.Susp) 30 ml PO DAILY PRN PRN Reason: Constipation Nicotine Polacrilex (Nicotine Polacrilex 2 Mg Gum) 4 mg BUCCAL Q2H PRN PRN Reason: Nicotine Cravings Last Admin: 07/17/22 06:41 Dose: 4 mg Trazodone HCl (Trazodone Hcl 50 Mg Tablet) 50 mg PO BEDTIME PRN PRN Reason: Insomnia Allergies Allergies Allergy/AdvReac Type Severity Reaction Status Date / Time quetiapine [From SEROQUEL] Allergy Severe ANAPHYLAXIS Unverified 06/23/20 19:08 haloperidol [HALOPERIDOL] Allergy Intermediate SWELLING Unverified 06/23/20 19:08 Assessment & Plan Assessment & Plan (1) Schizoaffective disorder: Status: Acute Code(s): F25.9 - Schizoaffective disorder, unspecified Plan 07/10: restarted regimen on which pt was discharged last admission (thorazine 100 QHS, VPA 750 BID). 07/11: pt agreed to increase VPA to 1000 BID. he asked for medication for PTSD and clonidine 0.05 mg BID was started. pt signed 3-day notice. 07/12: pt c/o VPA being a stimulant, feeling too anxious in the morning so he refused HS dose. agreeable to continue VPA at HS at 750 mg and to take 1000 mg in the morning. also asking to increase clonidine to 0.1 mg each, which is done, and to reinstate ativan at HS, which is done as well. question of amadeo raya remains. 07/13: not compliant with meds in past 24H. more overtly paranoid and delusional today re peers. agrees to take VPA and thorazine this morning and to continue VPA through MD's return on saturday. concerning that continued non-compliance with meds will lead to decompensation and violence. 07/14/22- Increase Chlorpromazine to 200 mg tonight to assist with sleep. Re-eval ongoing. 07/15/22- Encourage treatment compliance 07/16/22- Decrease Chlorpromazine back to 100 mg- Offer structure, support. Enc compliance. 07/17: 3-day notice rescinded, then another submitted. floridly psychotic and delusional today, more decompensated than i've ever seen him. he agrees to take all meds as prescribed the next 3 days with expectation of discharge. I spent ___40___ minutes with the patient and/or on the patient floor today, greater than?50% of which was spent counseling/coordinating care. Reason for contiued inpatient stay Substantial Risk for: harm to self, harm to others, inability to function and rapid decompensation
[2022-07-17] MEDS: Divalproex Sodium ER 250 MG TAB.ER.24H 750 MG PO (21:10)
[2022-07-17] MEDS: LORazepam 1 MG TABLET 2 MG PO (21:15)
[2022-07-17] MEDS: Acetaminophen 325 MG TABLET 650 MG PO (22:43)
[2022-07-18] MEDS: Divalproex Sodium ER 500 MG TAB.ER.24H 1000 MG PO (08:47)
[2022-07-18] MEDS: chlorproMAZINE HCl 100 MG TABLET PO ×2 (08:59→19:58)
[2022-07-18] MEDS: cloNIDine HCL 0.1 MG TABLET PO ×2 (08:59→19:59)
[2022-07-18 09:22] VITALS: BP 114/68; PULSE 89; O2SAT 97
[2022-07-18] MEDS: Nicotine Polacrilex 2 MG GUM 4 MG BUCCAL ×2 (10:54→17:36)
--- NOTE | 2022-07-18 16:08 | P.PNPSI_ITS ---
Subjective Subjective Date of Service: 07/18/22 Reason For Visit: jovani Interim History: pt calm, states he is taking his medications and not causing any trouble. asks if this is the first day and he needs to continue for 2 more days. replies in the affirmative. states then he doesn't have anything else to say, asks MD if MD has any questions. MD says no and encourages pt to continue to take his medications. later pt finds MD in the price and states he needs risperidone, asks to start low dose risperidone daily, agrees to 0.5 mg daily, tostart tomorrow. per staff, retracted and then resubmitted 3-day notice. irritable, bizarre, staring. says his GF is waiting at a bus stop for him. denies SI/SIBI/HI/AVH. Mental Status Exam Mental Status Exam Narrative: no agitation. cooperative. PMA of pacing. speech decr in rate, amount. nml loudness, tone. incr latency. thoughts linear and logical in brief interaction. affect hypo-intense, constricted, non-labile. mood not assessed. no SI/HI/AVH reported. Diagnostics Vital Signs (24Hr): Vital Signs - 24 hr 07/18/22 09:22 Pulse Rate 89 Blood Pressure 114/68 Pulse Oximetry 97 Oxygen Delivery Method Room Air Medications Medications Current Medications Acetaminophen (Acetaminophen 325 Mg Tablet) 650 mg PO Q6H PRN PRN Reason: Headache/Pain Mild Scale (1-3) Last Admin: 07/17/22 22:43 Dose: 650 mg Al Hydroxide/Mg Hydroxide (Magnesium Hydrox/Alum Hydrox 30 Ml Oral.Susp) 30 ml PO Q6H PRN PRN Reason: Heartburn/Nausea Chlorpromazine HCl (Chlorpromazine Hcl 100 Mg Tablet) 100 mg PO Q4H PRN PRN Reason: agitation Last Admin: 07/18/22 08:59 Dose: 100 mg Chlorpromazine HCl (Chlorpromazine Hcl 100 Mg Tablet) 100 mg PO BEDTIME OSKAR Last Admin: 07/17/22 21:10 Dose: 100 mg Clonidine HCl (Clonidine Hcl 0.1 Mg Tablet) 0.1 mg PO BID OSKAR; Protocol Last Admin: 07/18/22 08:59 Dose: 0.1 mg Divalproex Sodium (Divalproex Sodium Er 500 Mg Tab.Er.24h) 1,000 mg PO DAILY [facility] Last Admin: 07/18/22 08:47 Dose: 1,000 mg Divalproex Sodium (Divalproex Sodium Er 250 Mg Tab.Er.24h) 750 mg PO BEDTIME [facility] Last Admin: 07/17/22 21:10 Dose: 750 mg Guaifenesin (Guaifenesin 100 Mg/5 Ml Liquid) 5 ml PO Q4H PRN PRN Reason: cough Last Admin: 07/17/22 04:44 Dose: 5 ml Lorazepam (Lorazepam 1 Mg Tablet) 1 mg PO Q4H PRN PRN Reason: moderate anxiety Last Admin: 07/17/22 19:21 Dose: 1 mg Lorazepam (Lorazepam 1 Mg Tablet) 2 mg PO BEDTIME [facility] Last Admin: 07/17/22 21:15 Dose: 1.75 mg Magnesium Hydroxide (Milk Of Magnesia 30 Ml Oral.Susp) 30 ml PO DAILY PRN PRN Reason: Constipation Nicotine Polacrilex (Nicotine Polacrilex 2 Mg Gum) 4 mg BUCCAL Q2H PRN PRN Reason: Nicotine Cravings Last Admin: 07/18/22 10:54 Dose: 4 mg Risperidone (Risperidone 0.5 Mg Tablet) 0.5 mg PO DAILY [facility] Trazodone HCl (Trazodone Hcl 50 Mg Tablet) 50 mg PO BEDTIME PRN PRN Reason: Insomnia Allergies Allergies Allergy/AdvReac Type Severity Reaction Status Date / Time quetiapine [From SEROQUEL] Allergy Severe ANAPHYLAXIS Unverified 06/23/20 19:08 haloperidol [HALOPERIDOL] Allergy Intermediate SWELLING Unverified 06/23/20 19:08 Assessment & Plan Assessment & Plan (1) Schizoaffective disorder: Status: Acute Code(s): F25.9 - Schizoaffective disorder, unspecified Plan 07/10: restarted regimen on which pt was discharged last admission (thorazine 100 QHS, VPA 750 BID). 07/11: pt agreed to increase VPA to 1000 BID. he asked for medication for PTSD and clonidine 0.05 mg BID was started. pt signed 3-day notice. 07/12: pt c/o VPA being a stimulant, feeling too anxious in the morning so he refused HS dose. agreeable to continue VPA at HS at 750 mg and to take 1000 mg in the morning. also asking to increase clonidine to 0.1 mg each, which is done, and to reinstate ativan at HS, which is done as well. question of amadeo ramireztien remains. 07/13: not compliant with meds in past 24H. more overtly paranoid and delusional today re peers. agrees to take VPA and thorazine this morning and to continue VPA through MD's return on saturday. concerning that continued non-compliance with meds will lead to decompensation and violence. 07/14/22- Increase Chlorpromazine to 200 mg tonight to assist with sleep. Re-eval ongoing. 07/15/22- Encourage treatment compliance 07/16/22- Decrease Chlorpromazine back to 100 mg- Offer structure, support. Enc compliance. 07/17: 3-day notice rescinded, then another submitted. floridly psychotic and delusional today, more decompensated than i've ever seen him. he agrees to take all meds as prescribed the next 3 days with expectation of discharge. 07/18: med-compliant. also had thorazine PRN this morning, somewhat slowed by it. states he would like to restart risperidone at low dose in the mornings, 0.5 mg ordered for tomorrow. I spent __20____ minutes with the patient and/or on the patient floor today, greater than?50% of which was spent counseling/coordinating care. Reason for contiued inpatient stay Substantial Risk for: harm to self, harm to others, inability to function and rapid decompensation
[2022-07-18 19:03] VITALS: BP 124/74; PULSE 107; RESP 16; TEMP 36.6; O2SAT 96
[2022-07-18] MEDS: LORazepam 1 MG TABLET 2 MG PO (19:58)
[2022-07-18] MEDS: Divalproex Sodium ER 250 MG TAB.ER.24H 750 MG PO (19:59)
[2022-07-18 20:06] LABS: COVID-19 Test Negative (Negative); IDNOW Serial# 16C4AD1C
[2022-07-19 07:00] VITALS: BMI 19.5
[2022-07-19] MEDS: risperiDONE 0.5 MG TABLET PO (08:30)
[2022-07-19] MEDS: cloNIDine HCL 0.1 MG TABLET PO ×2 (08:30→21:07)
[2022-07-19] MEDS: Divalproex Sodium ER 500 MG TAB.ER.24H 1000 MG PO (08:30)
[2022-07-19 08:35] VITALS: BP 112/67; PULSE 102; RESP 18; TEMP 36.5; O2SAT 99
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
[2022-07-19] MEDS: Nicotine Polacrilex 2 MG GUM 4 MG BUCCAL ×2 (16:29→22:36)
[2022-07-19] MEDS: LORazepam 1 MG TABLET PO (18:34)
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
[2022-07-19 21:05] VITALS: BP 125/72; PULSE 96; RESP 16; TEMP 36.4; O2SAT 98
[2022-07-19] MEDS: Divalproex Sodium ER 250 MG TAB.ER.24H 750 MG PO (21:07)
[2022-07-19] MEDS: LORazepam 1 MG TABLET 2 MG PO (21:08)
[2022-07-19] MEDS: chlorproMAZINE HCl 100 MG TABLET PO (21:08)
[2022-07-20] MEDS: Nicotine Polacrilex 2 MG GUM 4 MG BUCCAL (03:50)
[2022-07-20] MEDS: LORazepam 1 MG TABLET PO (04:25)
[2022-07-20] MEDS: Divalproex Sodium ER 500 MG TAB.ER.24H 1000 MG PO (08:12)
[2022-07-20] MEDS: cloNIDine HCL 0.1 MG TABLET PO (08:12)
== END 2022-07-20 09:55 | disposition home or self-care (01) | DRG 885 ==
PROVIDERS: Admitting Provider Psychiatry & Neurology Psychiatry; Visit Provider Psychiatry & Neurology Psychiatry
DX: F25.0 Schizoaffective disorder, bipolar type (principal); Z20.822 Contact with and (suspected) exposure to COVID-19; Z87.891 Personal history of nicotine dependence; Z88.8 Allergy status to other drugs, medicaments and biological substances; Z79.899 Other long term (current) drug therapy
CPT/HCPCS: 87635

== ENCOUNTER 2023-02-24 03:50 | Inpatient (IN) | payer MEDICARE, MEDICAID, SELFPAY ==
[2023-02-24 03:57] VITALS: BP 130/75; BP 154/118; PULSE 100; PULSE 103; RESP 20; TEMP 37.1; O2SAT 94; O2SAT 98; BMI 26.5
--- NOTE | 2023-02-24 04:20 | ED.PSYCH ---
HPI - Psych General Chief Complaint: Nausea/Vomiting/Diarrhea Stated Complaint: Foot Problems with Heartburn from Meds Time Seen by Provider: 02/24/23 04:14 Source: patient and EMS Mode of arrival: EMS Limitations: no limitations History of Present Illness HPI Narrative: Patient comes to emergency room via ambulance. Patient has very disorganized speech, tangential speech, talking about killing although nurses in the ED, saying that if the force him to take his medications [place] will go to war with the [place] . Complaining that his feet are wet which they are, patient has been walking out in the rain Related Data Previous Rx's Medication Instructions Recorded ibuprofen 600 mg tablet 600 mg PO Q6H PRN pain #30 tabs 06/25/22 chlorpromazine 100 mg tablet 100 mg PO Q6H PRN agitation/severe 07/03/22 anxiety 30 days #30 tabs chlorpromazine 100 mg tablet 100 mg PO BEDTIME 30 days #30 tabs 07/19/22 clonidine HCl 0.1 mg tablet 0.1 mg PO BID 30 days #60 tabs 07/19/22 divalproex 250 mg tablet,extended 750 mg PO BEDTIME 30 days #90 tabs 07/19/22 release 24 hr divalproex 500 mg tablet,extended 1,000 mg PO DAILY 30 days #60 tabs 07/19/22 release 24 hr lorazepam 1 mg tablet 2 mg PO BEDTIME 7 days #14 tabs 07/19/22 nicotine (polacrilex) 2 mg gum 4 mg buccal Q2H PRN Nicotine 07/19/22 Cravings 30 days #60 ea risperidone 0.5 mg tablet 0.5 mg PO DAILY 30 days #30 tabs 07/19/22 Allergies Allergy/AdvReac Type Severity Reaction Status Date / Time quetiapine [From SEROQUEL] Allergy Severe ANAPHYLAXIS Verified 02/24/23 04:01 haloperidol [HALOPERIDOL] Allergy Intermediate SWELLING Verified 02/24/23 04:01 trazodone Allergy Unknown Verified 02/24/23 04:01 Review of Systems Review of Systems: Yes Unobtainable due to mental condition PMFSH Past Medical History Medical History (Updated 02/24/23 @ 04:34 by Genesis Blum MD) Schizoaffective disorder Substance abuse Violent behavior Social History Social History Household Members: Unknown / Unable to assess Household Members Other:: Per documentation, pt lives [facility] or own apartment. Housing: Apartment Unable to assess alcohol history related to: Unknown Patient Tobacco Use Status: Former Tobacco user Second Hand Smoke Exposure: No Substance Use Type: Crack/Cocaine and Marijuana Advance Directives: No Advance Directives Information Provided: No service: No Sexual orientation: Don't Know Physical Exam Vital Signs: Vital Signs: Last Vital Signs Temp 98.8 F 02/24/23 03:57 Pulse 103 H 02/24/23 03:57 Resp 20 02/24/23 03:57 BP 130/75 02/24/23 03:57 Pulse Ox 98 02/24/23 03:57 O2 Del Method Room Air 02/24/23 03:57 BMI result Body Mass Index 26.5 Const: Other: Appearance: Alert. Oriented X3. Eyes: Pupils equal, round and reactive to light. ENT: Pharynx normal. Neck: Normal inspection. Neck supple. No lymph nodes noted. No crepitus CVS: Normal heart rate and rhythm. Pulses normal. Normal S1 and S2 Respiratory: No respiratory distress. Breath sounds normal. No Wheezing. No rales Abdomen: Soft and nontender. No rigidity. No distention. Skin: Skin warm and dry. Normal skin color. Normal skin turgor. Extremities: No lower extremity edema. No Lacerations. No Rash Neuro: Oriented X 3. No motor deficit. No sensory deficit. Moving all extremities. No slurred speech. CN 2 through 12 grossly intact Psych: Escalating, becoming belligerent, saying that he is going to kill the nurses in the ED, tangential speech, disorganized speech Course Course Course Narrative: -patient refusing labs at this time -patient is on a Section 12, patient is paranoid, delusional -physician observation started at 04:25 Discharge Plan Discharge Clinical Impression: Schizoaffective disorder Patient Disposition: Still a Patient Prescriptions: No Action ibuprofen 600 mg tablet 600 mg PO Q6H PRN (Reason: pain) Qty: 30 0RF chlorpromazine 100 mg Tablet 100 mg PO Q6H PRN (Reason: agitation/severe anxiety) 30 Days Qty: 30 0RF clonidine HCl 0.1 mg Tablet 0.1 mg PO BID 30 Days Qty: 60 0RF Protocol: Hold for SBP< HOLD for SBP < : 90 nicotine (polacrilex) 2 mg Gum 4 mg buccal Q2H PRN (Reason: Nicotine Cravings) 30 Days Qty: 60 0RF divalproex 250 mg Tablet Extended Release 24 Hr 750 mg PO BEDTIME 30 Days Qty: 90 0RF divalproex 500 mg Tablet Extended Release 24 Hr 1,000 mg PO DAILY 30 Days Qty: 60 0RF lorazepam 1 mg Tablet 2 mg PO BEDTIME 7 Days Qty: 14 3RF risperidone 0.5 mg Tablet 0.5 mg PO DAILY 30 Days Qty: 30 0RF chlorpromazine 100 mg Tablet 100 mg PO BEDTIME 30 Days Qty: 30 0RF
--- NOTE | 2023-02-24 04:27 | PC.NURSE ---
Pt yelling out of room threatening to kill RN sitting at desk if we kick him out. Other tangential speech noted. Security called to bedside. Plan for section 12.
--- NOTE | 2023-02-24 04:31 | PC.NURSE ---
Pt ambulated to POD with security and collar folder operator.
[2023-02-24 04:37] LABS: MANUAL DIFF FLAG NO
[2023-02-24 04:39] LABS: Basophils Absolute Auto 0.1 X10*3/uL (0.0-0.2); Basophils Percent Auto 0.3 % (0-2); Eosinophils Absolute Auto 0.1 X10*3/uL (0.0-0.4); Eosinophils Percent Auto 0.8 % (0-4); Hematocrit 48.9 % (42.0-52.0); Imm Gran Abs Auto 0.07 X10*3/uL (0.00-0.03); Imm Gran Pct Auto 0.4 % (0.0-0.4); Lymphocytes Absolute Auto 2.6 X10*3/uL (1.2-4.9); Lymphocytes Percent Auto 14.6 % (20-40); Mean Corpuscular HGB Conc 34.8 g/dl (31.0-36.0); Mean Corpuscular Volume 89.2 fL (80.0-98.0); Mean Platelet Volume 9.4 fL (9.4-12.4); Monocytes Absolute Auto 1.4 X10*3/uL (0.1-1.2); Neutrophils Absolute Auto 13.6 x10*3/uL (2.0-8.3); Neutrophils Percent Auto 75.9 % (45-73); Platelet Count 307 X10*3/uL (160-400); Red Blood Count 5.48 X10*6/uL (4.60-5.80); Red Cell Distribution Width 12.7 % (11.0-16.0)
[2023-02-24 04:56] LABS: Alanine Aminotransferase 68 U/L (0-40); Albumin Level 4.7 g/dL (3.5-5.0); Alkaline Phosphatase 101 U/L (39-117); Anion Gap 17 (12-20); Aspartate Amino Transferase 61 U/L (5-37); Bilirubin Direct 0.5 mg/dL (0.0-0.5); Bilirubin Total 1.6 mg/dL (0.0-1.0); Blood Urea Nitrogen 13 mg/dL (9-16); Calcium 9.9 mg/dL (8.4-10.2); Carbon Dioxide 23 mmol/L (22-29); Chloride 102 mmol/L (96-108); Creatinine Clr Calc Pharmacy 128.6; Estimated Glomerular Filt Rate > 60; Ethanol < 10 mg/dL; Glucose Random 80 mg/dL (60-115); Potassium 4.4 mmol/L (3.3-5.1); Sodium 138 mmol/L (135-145); Total Protein 7.5 g/dL (6.5-8.0)
[2023-02-24 05:12] LABS: COVID-19 Test Negative (Negative); IDNOW Serial# 6674DD1D
--- NOTE | 2023-02-24 05:42 | PC.NURSE ---
Patient just got transferred from main ED after patient was cleared medically, no distress observed/reported, partial labs completed/resulted, pending Depakote level and Utox screen, care consult ordered for disorganized thought process, VSS, behavior non concerning at this time, med rec completed/pending pharmacy verification/pharmacy consult ordered, will continue to monitor.
[2023-02-24 08:36] LABS: Appearance Urine Clear; Color Urine Dark Yellow; Glucose Urine UA Negative (Negative); Leukocyte Esterase Urine Negative (Negative); Nitrite Urine Negative (Negative); PH 5.5 (5.0-9.0); Specific Gravity - Urine >= 1.030 (1.005-1.025); UMIC TRIGGER UACC YES; Urine Blood Negative (Negative); Urine Ketones 80 mg/dL (Negative); Urine Protein 30 (1+) mg/dL (Neg-Trace)
[2023-02-24 08:41] LABS: Bacteria Urine None Seen (None Seen); Hyaline Casts Urine 0-2 /LPF (0-2); RBC Urine 0-2 /HPF (0-2); Squamous Epithelial Cell Urine 0-2 /HPF (0-2); WBC Urine 0-5 /HPF (0-5)
[2023-02-24 08:45] LABS: Amphetamine Screen Urine Not Detected (Not Detect); Barbiturates, Urine Not Detected (Not Detect); Benzodiazepines Screen Urine Not Detected (Not Detect); Cannabinoid Screen Urine POSITIVE (Not Detect); Cocaine Screen Urine POSITIVE (Not Detect); Fentanyl, urine POSITIVE (Not Detect); Opiate Screen Urine Not Detected (Not Detect); Phencyclidine Screen Urine Not Detected (Not Detect)
--- NOTE | 2023-02-24 09:03 | PHA.MEDREC ---
Pharmacy Consult ? Medication Reconciliation Pharmacy has completed the medication reconciliation. Spoke to patient to confirm meds. Patient states they no longer take Baclofen 10mg. Patient also states that they are supposed to be taking levothyroxine 50mcg, but does not want to take it because of their culture. Patient states med is just for hair growth and that they would rather be off of it than on it. Patient attests to only taking olanzapine 15mg and depakote 750mg ER BI.D
[2023-02-24 11:14] LABS: Valproate < 12.5 mcg/mL (50.0-100.0)
[2023-02-24 19:24] VITALS: BP 126/75; PULSE 95; RESP 18; TEMP 36.7; O2SAT 96
--- NOTE | 2023-02-24 19:27 | PC.NURSE ---
Report received from JORGE LUIS Helms Pt sleeping at this time, respirations even and unlabored, skin pwd, no apparent distress
--- NOTE | 2023-02-24 22:13 | PC.NURSE ---
pt sleeping at this time, respirations even and unlabored, skin pwd will hold off on vital signs as last set was at about 1930, patient is asleep now and last set of vitals were within normal limits
--- NOTE | 2023-02-25 | ECG_ITS ---
Test Reason : psych meds Blood Pressure : / mmHG Vent. Rate : 094 BPM Atrial Rate : 094 BPM P-R Int : 124 ms QRS Dur : 090 ms QT Int : 348 ms P-R-T Axes : 065 -30 033 degrees QTc Int : 435 ms Normal sinus rhythm Left axis deviation Otherwise normal ECG No previous ECGs available Referred By: Tyson Francois Electronically Signed By:MAEVE DE OLIVEIRA
--- NOTE | 2023-02-25 03:02 | PC.NURSE ---
late entry: pt woke up and requested to use the shower. This RN stated patient could take a quick shower as patients are sleeping. Pt agreed, after about 20 minutes, Ebony MCKAY approached the door to request the patient finish with his shower to which the patient responded, why don't you come in here and wash the rest of the soap off my body, you bitch . this statement then upset another patient. Pt emerged from shower about 10 minutes after, requesting new sheets and blankets. This Rn helped patient change bedding Pt sleeping at this time, respirations even and unlabored, skin pwd, no apparent distress
--- NOTE | 2023-02-25 06:36 | PC.NURSE ---
Pt slept on and off throughout the night, pt is currently sleeping at this time, respirations even and unlabored, skin pwd Continue plan of care for inpatient admission
--- NOTE | 2023-02-25 08:58 | PC.NURSE ---
patient delusional, getting agitated with staff. yelling and swearing-getting other patients upset. MD and security at the bedside. MD to order PO meds. will CTM
[2023-02-25 09:00] VITALS: BP 120/68; PULSE 83; RESP 16; TEMP 36.8; O2SAT 95
[2023-02-25] MEDS: risperiDONE 1 MG TABLET PO ×2 (09:07→21:04)
--- NOTE | 2023-02-25 10:24 | PC.NURSE ---
pt refusing EKG. Care team and ED provider aware...
--- NOTE | 2023-02-25 11:12 | PC.NURSE ---
patient agreed to EKG. continues to have delusional thoughts. verbally redirectable at this time
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
--- OUTSIDE RECORDS SUMMARY | 2023-02-25 15:03 | XMS_ITS | Continuity of Care Document ---
Author Name Unknown Organization [facility] ter Address [address] [place] [address]- Care Team Providers Care Computer Support Technician Name Role Phone Not on Staff, PCP Primary Care Physician Unavail able Encounter [facility] [place] Date(s): 09/03/22 - 09/08/[address] [address]- Encounter Diagnosis Psychosis(Final) - 09/04/22 Discharge Disposition: Transfer to [facility] Facility Attending Physician: Sreekanth Camara DO Admitting Physician: Sreekanth Camara DO Referring Physician: Not on Staff, Referring MD Allergies, Adverse Reactions, Alerts Substance Reaction Severity Status haloperidol Active droperidol 1 Active Haldol 2 Active traZODone Active OLANZapine Active QUEtiapine Active ZyPREXA itching blurry vision trouble breathing tremor Active SEROquel Active 1?acute dystonic reaction 2 many years ago...they had to give me Benadryl and I had to sit upright by a window Immunizations Given and Recorded Vaccine Date Status Refusal Reason SARS-CoV-2 (COVID-19) mRNA BNT-162b2 vac 12/05/20 Recorded Not Given Vaccine Date Status Refusal Reason pneumococcal 23-valent vaccine 08/10/17 Not Given Patient Refuses pneumococcal 23-valent vaccine 06/03/17 Not Given Patient Refuses pneumococcal 23-valent vaccine 01/21/17 Not Given Patient Refuses Medications Acetaminophen Tablet 650 mg, Tablet, By Mouth, Every 8 hours, PRN for Pain , Moderate, STAT, 09/04/22 0:10:00 EST Start Date: 09/04/22 Stop Date: 09/09/22 Status: Discontinued chlorproMAZINE 100 mg oral tablet 1 tablet [...] 0 Refills, Maintenance, 06/18/22 14:24:00 EDT, Tablet, [facility]pharmacy #[id number], Partial fill upon patient request [...] 05/31/22 12:15:00 EDT, Route to Pharmacy Electronically, [facility], Partial fill uponpatient request if [...] [facility] Start Date: 06/18/22 Status: Ordered risperiDONE 0.5 mg oral tablet 0.5 mg, 1, tablet, By Mouth, Daily, # 30 tablet, Refills 0, Maintenance, 07/21/22 10:43:00 EDT, Partial fill upon patient request if the prescription is for a schedule II opioid drug. Start Date: 07/21/22 Status: Ordered Problem List Condition Confirmation Course Effective Dates Status Health atus Informant Antisocial personality features Confirmed Active Cannabis dependence with current use Confirmed Active Cocaine use disorder Confirmed Active Hypothyroid Confirmed Active Lives in [facility] Confirmed Active Violent behavior Confirmed Active Results Orders for Microbiology Reports Name Date Blood Culture 09/06/22 Blood Culture #2 09/06/22 Microbiology Reports TEST:Blood Culture STATUS:Unauthenticated BODY SITE: SOURCE:Blood COLLECTED DATE/TIME:09/07/22 6:26 AM Blood Culture SPECIMEN DESCRIPTION : BLOOD NOSITE SPECIAL REQUESTS : NONE CULTURE : NO GROWTH AFTER 24 HOURS REPORT STATUS : PRELIMINARY REPORT TEST:Blood Culture, Second Order STATUS:Unauthenticated BODY SITE: SOURCE:Blood COLLECTED DATE/TIME:09/07/22 6:26 AM Blood Culture, Second Order SPECIMEN DESCRIPTION : BLOOD NOSITE SPECIAL REQUESTS : NONE CULTURE : NO GROWTH AFTER 24 HOURS REPORT STATUS : PRELIMINARY REPORT Vital Signs Most recent to oldest [Reference Range]: 1 2 3 Oxygen Saturation [94-100 %] 98 % (09/07/22 3:58 PM) 96 % (09/06/22 9:36 PM) 94 % (09/06/22 6:26 PM) Pulse Rate [55-90 bpm] 84 bpm (09/07/22 3:58 PM) 97 bpm *H* (09/06/22 9:36 PM) 120 bpm *H* (09/06/22 6:26 PM) Blood Pressure [90-138/55-84 mm Hg] 110/62mm Hg (09/07/22 3:58 PM) 103/59mm Hg (09/06/22 9:36 PM) 110/62mm Hg (09/06/22 6:26 PM) Respiratory Rate [16-30 br/min] 16 br/min (09/07/22 5:57 PM) 16 br/min (09/07/22 3:58 PM) 18 br/min (09/06/22 9:36 PM) Temperature [96.8-100.4 DegF] 98.8 DegF (09/07/22 3:58 PM) 98.8 DegF (09/06/22 9:36 PM) 99.5 DegF (09/06/22 6:26 PM) Mode of Delivery (Oxygen) Room air (09/07/22 3:58 PM) Room air (09/06/22 9:36 PM) Room air (09/05/22 11:03 PM) Blood pressure sites Arm, right (09/07/22 3:58 PM) Arm, right (09/06/22 6:26 PM) Arm, right (09/06/22 9:59 AM) Temperature Route Oral (09/07/22 3:58 PM) Oral (09/06/22 9:36 PM) Oral (09/06/22 6:26 PM) Social History Social History Type Response Tobacco Other: 2-3 cigarette s per day. Type: Cigarettes. Sex Patient Care team information Care Team Personnel Name: Ravindra Menjivar RN Position: [facility] RN Member Role: Primary Care Nurse Name: Farshad Washington RN Position: [facility] RN Member Role: Primary Care Nurse Name: Bartolome Sanchez RN Position: [facility] RN Member Role: Primary Care Nurse Name: Mojgan Can RN Position: [facility] AMB Nurse Member Role: Primary Care Nurse Name: Star Greene RN Position: [facility] RN Member Role: Primary Care Nurse Name: Efren Rodriguez RN Position: [facility] RN Member Role: Primary Care Nurse Name: Siva Luke RN Position: [facility] RN Member Role: Primary Care Nurse Name: Not on Staff, PCP Position: [facility] Physician (General Medicine) Member Role: PCP Name: Trang Huynh RN Position: [facility] RN Member Role: Primary Care Nurse Name: Ann Joseph RN Position: [facility] Hospital Supervisor Telephone Information Member Role: Primary Care Nurse Name: Isabell Burroughs LPN Position: [facility] RN Member Role: Primary Care Nurse Name: Melina Gillis RN Position: [facility] RN Member Role: Primary Care Nurse Name: Lobo Owen RN Position: [facility] RN Member Role: Primary Care Nurse Name: Cora Navarro RN Position: [facility] RN Member Role: Primary Care Nurse Name: *[facility], ED Attending Position: [facility] ED Attendings Patient Name: Sreekanth Camara DO Position: [facility] ED Medicine MD Member Role: Admitting Physician Address: Address: [address] [place] [id number] Name: Fe Valdes RN Position: [facility] ED RN W/OE and Tasks Member Role: Patient Care Provider Care Team Related Persons Name: JUICE PACHECO Address: home [address] [place] [address] Name: PT STATES, NONE Name: CRIS MALONE Address: home [address] [place] [id number]
--- OUTSIDE RECORDS SUMMARY | 2023-02-25 15:03 | XMS_ITS | Continuity of Care Document ---
Author Name Unknown Organization [facility] ter Address [address] [place] [address]- Care Team Providers Care Frozen Food Department Manager Name Role Phone Not on Staff, PCP Primary Care Physician Unavail able Encounter [facility] [place] Date(s): 01/30/23 - 01/30/[address] [address]- Discharge Disposition: A-D/C Home Attending Physician: Gopi Campos MD Admitting Physician: Gopi Campos MD Referring Physician: Not on Staff, Referring [...] 0 Refills, Maintenance, 06/18/22 14:24:00 EDT, Tablet, [facility]/pharmacy #[id number], Partial fill upon patient request [...] 12:15:00 EDT, Route to Pharmacy Electronically, [facility] [place] [facility], Partial fill uponpatient request if the prescription is for a schedu... Start Date: 05/31/22 Status: Ordered olanzapine 5 mg oral tablet See Instructions, 1 tablet By Mouth Daily in the morning, 2 tablets daily before bedtime, # 90 tablet, Refills 0, Tot. Refills 0, Maintenance, 06/18/22 14:24:00 EDT, Instructions Replace Required Details, Route to Pharmacy Electronically, [facility]/pharmacy... Start Date: 06/18/22 Status: Ordered risperiDONE 0.5 [...] Confirmed Active Hypothyroid Confirmed Active Lives in [facility] Confirmed Active Violent behavior Confirmed Active Vital Signs Most recent to oldest [Reference Range]: 1 2 3 Oxygen Saturation [94-100 %] 96 % (01/30/23 6:55 PM) 96 % (01/30/23 2:10 PM) 94 % (01/30/23 1:35 PM) Pulse Rate [55-90 bpm] 118 bpm *H* (01/30/23 6:55 PM) 125 bpm *H* (01/30/23 2:10 PM) 135 bpm *H* (01/30/23 1:35 PM) Blood Pressure [90-138/55-84 mm Hg] 135/88mm Hg (01/30/23 6:55 PM) 140/90mm Hg *H* (01/30/23 2:10 PM) 136/91mm Hg (01/30/23 1:35 PM) Respiratory Rate [16-30 br/min] 18 br/min (01/30/23 6:55 PM) 20 br/min (01/30/23 2:10 PM) 22 br/min (01/30/23 1:35 PM) Temperature [96.8-100.4 DegF] 98.9 DegF (01/30/23 6:55 PM) 99.2 DegF (01/30/23 2:10 PM) 99.2 DegF (01/30/23 1:35 PM) Mode of Delivery (Oxygen) Room air (01/30/23 6:55 PM) Room air (01/30/23 2:10 PM) Room air (01/30/23 1:35 PM) Blood pressure sites Arm, left (01/30/23 6:55 PM) Arm, left (01/30/23 2:10 PM) Arm, left (01/30/23 1:35 PM) Temperature Route Oral (01/30/23 6:55 PM) Oral (01/30/23 2:10 PM) Oral (01/30/23 1:35 PM) Social History Social History Type Response Tobacco Other: 2-3 cigarette s per day. Type: Cigarettes. Sex Note * Gopi Campos MD: PERFORM Event Display: Patient Education Leaflets Authored Date: [id number] Meditation ?? 624 ?? What is Meditation?Meditation is an??intentional practice that??focuses on opening??one???s??heart,expanding awareness and??calming??the??mind. ?Meditation?? has?? been?? used by many individuals for thousands of years to find??inner??peace??and??come to??terms with difficulties they experience in life. ?? Why?? Practice?? Meditation? ?? Meditation?? has?? been?? studied for decades and is proven to have many positive effects including: ??? Decreasing anxiety ??? Decreasing stress ??? Improving?? self-awareness ??? Increasing?? imagination and creativity ?? Some?? studies have even??suggested??that??meditation??can??benefit??people who suffer??from physical conditions??including asthma,??headaches, high blood??pressure, sleep problems and chronic pain. ?? Types of Meditation ?? There are many types of meditation??that emphasize different ways to calm the mind. We encourageyou to try a few different types to find the??method??that??works best for you. ? Mindfulness?? Meditation - Mindfulness Meditation??focuses??on??slowing down and being in the present??moment while allowing??thoughts from a busy mind to pass one by without??judgement or stress. ?? Guided Meditation- This??technique??typically uses a teacher(either??in??person or through a website/martha) to guide??the??person??through a scene or image to calm??the mind. Guided??meditation may use??the five senses to help the??person??experience??the??scene. ?? Mantra Meditation- Mantra??Meditation??emphasizes on??using a specific word or sound to focus??the mind and help prevent??distracting??thoughts. ?? Movement Meditation - Movement?? Meditation?? focuses?? on?? using?? movement?? to allow one to find??inner??peace.??Yoga is a very common??example of movement??meditation,??but??other??methods??include??Qigong,gardening, or even going on a quiet??walk??or hike. ?? These are only a few??of the different types of meditation. Use the resources below??to discover others. ?? Additional?? Resources ?? Websites: ??? Insight Timer: https://[employer]/ ??? Meditation [place]: https://www.meditationoasis.Bright Things/??? [facility] Mindful Awareness??Research Center (available??in??10+ languages):??http://wolf.[facility]/body.cfm?id=22 Phone?? Apps: ??? Head space ??? Calm ??? Omvana ??? Buddhify ??? 7 Minute Chi ??? Insight Timer ??? Unplug ?? There are also many??resources??available in places like Upcliqueube??and??Spotify. ? Last Reviewed Date: 2021 This?? information is not intended as a substitute for professional medical care. Always follow??your??health care director rn???s instruction. ?? Patient Care team information Care Team Personnel Name: Ravindra Menjivar RN Position: [facility] RN Member Role: Primary Care Nurse Name: Farshad Washington RN Position: [facility] RN Member Role: Primary Care Nurse Name: Mojgan Can RN Position: [facility] AMB Nurse Member Role: Primary Care Nurse Name: Star Greene RN Position: [facility] RN Member Role: Primary Care Nurse Name: Efren Rodriguez RN Position: [facility] RN Member Role: Primary Care Nurse Name: Siva Luke RN Position: [facility] SN RN Member Role: Primary Care Nurse Name: Not on Staff, PCP Position: [facility] Physician (General Medicine) Member Role: PCP Name: Trang Huynh RN Position: [facility] SN RN Member Role: Primary Care Nurse Name: Ann Joseph RN Position: [facility] Hospital Child Therapist Member Role: Primary Care Nurse Name: Isabell Burroughs LPN Position: [facility] RN Member Role: Primary Care Nurse Name: Cora Navarro RN Position: [facility] RN Member Role: Primary Care Nurse Name: *[facility], ED Attending Position: [facility] ED Attendings Patient Name: Gopi Campos MD Position: [facility] ED Medicine MD Member Role: Admitting Physician Address: Address: [address] [place] [id number]- Name: Nadiya Gibbs RN Position: [facility] ED RN W/OE and Tasks Member Role: Patient Care Provider Name: Raine Goodson Position: [facility] ED TA [facility] Member Role: Patient Care Provider Care Team Related Persons Name: JUICE PACHECO Address: home [address] [place] [address] Name: PT STATES, NONE Name: CRIS MALONE Address: home [address] [place] [address]
--- OUTSIDE RECORDS SUMMARY | 2023-02-25 15:03 | XMS_ITS | Continuity of Care Document ---
Author Name Unknown Organization [facility] ter Address [address] [place] [address]- Care Team Providers Care Experimental Outboard Motors Mechanic Name Role Phone Not on Staff, PCP Primary Care Physician Unavail able Encounter [facility] [place] Date(s): 07/21/22 - 07/28/[address] [address]- Encounter Diagnosis Paranoia(Final) - 07/21/22 Non compliance w medication regimen(Final) - 07/21/22 Schizoaffective disorder(Final) - 07/21/22 Delusions(Final) - 07/21/22 Discharge Disposition: A-D/C Home Attending Physician: Nehemiah Pascual MD Admitting Physician: Nehemiah Pascual MD Referring Physician: Not on Staff, Referring MD Allergies, Adverse Reactions, Alerts Substance Reaction Severity Status droperidol 1 Active Haldol 2 Active traZODone Active ZyPREXA itching blurry vision trouble breathing [...] cloNIDine 0.1 mg oral tablet 0.1 mg, Tablet, By Mouth, Hold for: SBP<90, DBP<60, 07/27/22 9:00:00 EDT Start Date: 07/27/22 Stop Date: 07/27/22 Status: Completed cloNIDine 0.1 mg oral tablet 0.1 mg, [...] 0 Refills, Maintenance, 06/18/22 14:24:00 EDT, Tablet, [facility]/pharmacy #[id number], Partial fill upon patient request [...] 05/31/22 12:15:00 EDT, Route to Pharmacy Electronically, [facility], Partial fill uponpatient request if the prescription is for a schedu... Start Date: 05/31/22 Status: Ordered olanzapine 5 mg oral tablet See Instructions, 1 tablet By Mouth Daily in the morning, 2 tablets daily before bedtime, # 90 tablet, Refills 0, Tot. Refills 0, Maintenance, 06/18/22 14:24:00 EDT, Instructions Replace Required Details, Route to Pharmacy Electronically, [facility]/pharmacy... Start Date: 06/18/22 Status: Ordered risperiDONE [...] Confirmed Active Hypothyroid Confirmed Active Lives in longterm [facility] Confirmed Active Violent behavior Confirmed Active Vital Signs Most recent to oldest [Reference Range]: 1 2 3 Weight 81.5 kg (07/27/22 7:15 PM) 81.5 kg (07/27/22 6:39 AM) 81.5 kg (07/26/22 5:40 PM) Oxygen Saturation [94-100 %] 98 % (07/27/22 7:15 PM) 100 % (07/27/22 6:39 AM) 100 % (07/26/22 5:40 PM) Pulse Rate [55-90 bpm] 95 bpm *H* (07/27/22 7:15 PM) 80 bpm (07/27/22 6:39 AM) 79 bpm (07/26/22 5:40 PM) Blood Pressure [90-138/55-84 mm Hg] 125/68mm Hg (07/27/22 7:15 PM) 112/76mm Hg (07/27/22 8:34 AM) 112/76mm Hg (07/27/22 6:39 AM) Respiratory Rate [16-30 br/min] 18 br/min (07/27/22 7:15 PM) 18 br/min (07/27/22 6:39 AM) 18 br/min (07/26/22 5:40 PM) Temperature [96.8-100.4 DegF] 97.1 DegF (07/27/22 7:15 PM) 98 DegF (07/26/22 5:40 PM) 98.0 DegF (07/25/22 9:26 PM) Mode of Delivery (Oxygen) Room air (07/27/22 7:15 PM) Room air (07/27/22 6:39 AM) Room air (07/26/22 5:40 PM) Blood pressure sites Arm, left (07/27/22 7:15 PM) Arm, right (07/27/22 6:39 AM) Arm, right (07/26/22 5:40 PM) Temperature Route Oral (07/27/22 7:15 PM) Oral (07/26/22 5:40 PM) Oral (07/25/22 9:26 PM) Dry Weight 81.5 kg (07/27/22 7:15 PM) 81.5 kg (07/27/22 6:39 AM) 81.5 kg (07/26/22 5:40 PM) Weight Obtained Via Patient/family state d (07/21/22 7:22 AM) Dry Weight Obtained Via Patient/family s tated (07/21/22 7:22 AM) Social History Social History Type Response Tobacco Other: 2-3 cigarette s per day. Type: Cigarettes. Sex Patient Care team information Personnel Name: Not on Staff, PCP
--- OUTSIDE RECORDS SUMMARY | 2023-02-25 15:04 | XMS_ITS | Continuity of Care Document ---
Author Name Unknown Organization [facility] Address [address] [place] [address]- Care Team Providers Care Telephonic Case Manager Name Role Phone Not on Staff, PCP Primary Care Physician Unavail able Encounter [facility] Date(s): 06/05/22 - 07/22/22 [facility] [address] [place] [id number] Attending Physician: Not on Staff, Attending MD Allergies, Adverse Reactions, Alerts Substance Reaction [...] 05/31/22 12:15:00 EDT, Route to Pharmacy Electronically, [facility] 3, Partial fill uponpatient request if the prescription is for a schedu... Start Date: 05/31/22 Status: Ordered olanzapine 5 mg oral tablet See Instructions, 1 tablet By Mouth Daily in the morning, 2 tablets daily before bedtime, # 90 tablet, Refills 0, Tot. Refills 0, Maintenance, 06/18/22 14:24:00 EDT, Instructions Replace Required Details, Route to Pharmacy Electronically, [facility]/pharmacy... Start Date: 06/18/22 Status: Ordered risperiDONE [...] Confirmed Active Hypothyroid Confirmed Active Lives in half-way [facility] Confirmed Active Violent behavior Confirmed Active Social History Social History Type Response Tobacco Other: 2-3 cigarette s per day. Type: Cigarettes. Sex Patient Care team information Personnel Name: Not on Staff, PCP
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
[2023-02-25 20:50] VITALS: BP 121/55; PULSE 83; RESP 18; TEMP 36.6; O2SAT 96
[2023-02-26 08:18] VITALS: BP 120/81; PULSE 99; RESP 18; TEMP 36.6; O2SAT 96
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
--- NOTE | 2023-02-26 10:57 | PC.NURSE ---
Patient reported that he felt that his left eye was swollen. Upon observation this RN assessed the patient left side of his face including his eye and cheek to be swollen. Patient reported that 2 days ago he had a toothache, currently denying tooth pain. Poor dentition observed, reported that he does not see a dentist regularly. Denied headache, no vision changes, and A & O. Provider Adriane Begum notified.
--- NOTE | 2023-02-26 13:34 | PC.NURSE ---
Patient had outburst at about 1330 due to not receiving his salad dressing, patient stated Bring a crack head nurse an eight ball, but can't bring me my salad dressing . 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 Patient making comments using the word Nigger . Staff attempted to redirect patient, with no success. This RN offered patient a PRN of Risperone PO, and patient stated It makes my jacqueline not work, and that is why I take it so I don't fuck all your nurses . Patient then get into verbal altercation with peer. Adriane Begum SEDIMENTATIONIST notified, and [facility] addiction social worker was able to redirect patient at this time.
[2023-02-26 20:30] VITALS: BP 126/71; PULSE 80; RESP 16; TEMP 36.5; O2SAT 98
[2023-02-26] MEDS: risperiDONE 2 MG TABLET PO (21:44)
--- NOTE | 2023-02-26 21:52 | PC.NURSE ---
Sean refused his pm dosage of Depakote. Patient reports that the medication gives him stomach aches and he does not like taking it.
[2023-02-27 09:29] VITALS: RESP 18
[2023-02-27 18:00] VITALS: RESP 16
--- NOTE | 2023-02-27 21:02 | HO.PSYCHPN ---
Subjective Subjective Date of Service: 02/27/23 Reason For Visit: Mallory Subjective Notes: 3 Day Interim History: Pt reports he is here mostly to switch to risperidone. He continues to present with paranoia. He denies SI/HI. he reports he likes his fdc and feels safe there. Collateral from denied safety concern and agree with pt discharging when 3 day is up, which is tomorrow. [facility] working on [place] Pt slept through the night. No behavioral concerns. Review of Systems Review of Systems Yes Unobtainable due to mental condition Mental Status Exam Mental Status Exam Narrative: Appearance: casually groomed, fair hygiene, slightly swollen left side of face, in NAD Behavior: guarded Speech: clear, some delayed in response at times, spontaneous Psychomotor: intermittent periods of agitation in context of delusions TP: derailment TC: with paranoid delusions Mood: good Affect: guarded, hypervigilant SI: denies HI: denies VH/AH: internally preoccuppied Delusions: paranoid delusions Insight/judgment: impaired x 2. Memory/cog:alert, oriented x 3. Diagnostics Vital Signs (24Hr): Vital Signs - 24 hr 02/27/23 09:29 Respiratory Rate 18 BMI result Body Mass Index 26.5 Labs 02/24/23 04:30 02/24/23 04:30 Medications Medications Current Medications Acetaminophen (Acetaminophen 325 Mg Tablet) 650 mg PO Q6H PRN PRN Reason: Headache/Pain Mild Scale (1-3) Al Hydroxide/Mg Hydroxide (Magnesium Hydrox/Alum Hydrox 30 Ml Oral.Susp) 30 ml PO Q6H PRN PRN Reason: Heartburn/Nausea Divalproex Sodium (Divalproex Sodium Er 250 Mg Tab.Er.24h) 250 mg PO BID [facility] Last Admin: 02/27/23 09:33 Dose: Not Given Divalproex Sodium (Divalproex Sodium Er 500 Mg Tab.Er.24h) 500 mg PO BID [facility] Last Admin: 02/27/23 09:33 Dose: Not Given Hydroxyzine HCl (Hydroxyzine Hcl 25 Mg Tablet) 25 mg PO Q6H PRN PRN Reason: Anxiety Lorazepam (Lorazepam 1 Mg Tablet) 2 mg PO Q6H PRN PRN Reason: agitation Magnesium Hydroxide (Milk Of Magnesia 30 Ml Oral.Susp) 30 ml PO DAILY PRN PRN Reason: Constipation Nicotine Polacrilex (Nicotine Polacrilex 2 Mg Gum) 4 mg BUCCAL Q2H PRN PRN Reason: Nicotine Cravings Olanzapine (Olanzapine Odt 10 Mg Tab.Rapdis) 10 mg TRANSLINGU Q6H PRN PRN Reason: agitation Risperidone (Risperidone 2 Mg Tablet) 2 mg PO BEDTIME [facility] Last Admin: 02/26/23 21:44 Dose: 2 mg Allergies Allergies Allergy/AdvReac Type Severity Reaction Status Date / Time quetiapine [From SEROQUEL] Allergy Severe ANAPHYLAXIS Verified 02/24/23 04:01 haloperidol [HALOPERIDOL] Allergy Intermediate SWELLING Verified 02/24/23 04:01 trazodone Allergy Unknown Verified 02/24/23 04:01 Assessment & Plan Assessment & Plan (1) Schizoaffective disorder: Status: Acute Code(s): F25.9 - Schizoaffective disorder, unspecified Plan Mr. Buchanan is a 32 year-old male with hx of schizoaffective disorder who self presented to [facility] [facility] ED reporting feet being swollen and wet, presenting as increasingly paranoid and agitated, threatening to harm staff in the ED. He also requested change in medication stating that he wants to switch from olanzapine to risperidone. PLAN 1. admit to M3, cv, 3 day, escobar warning given and shows understanding. 15 minutes checks for safety 2. continue risperidone 2mg po qhs, prn olanzapine and ativan for agitation 3. obtain collateral information 4. aftercare planning. 02/27 continue tx. Reason for continued inpatient stay Substantial Risk for: inability to function Time Spent With Patient Time: Total time managing care of this patient today ____ minutes.
[2023-02-27] MEDS: risperiDONE 2 MG TABLET PO (21:23)
[2023-02-28 09:23] VITALS: BP 151/69; PULSE 100; TEMP 36.8; O2SAT 97
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
[2023-02-28 11:53] VITALS: BMI 29.8
== END 2023-02-28 13:54 | disposition home or self-care (01) | DRG 885 ==
LOC: HO.ED 10:21 → HO.PADLT16 02-25 15:01
PROVIDERS: Emergency Medicine; Admitting Provider Psychiatry & Neurology Psychiatry; Emergency Provider Emergency Medicine Emergency Medical Services; Visit Provider Social Worker
DX: F25.9 Schizoaffective disorder, unspecified (principal); Z20.822 Contact with and (suspected) exposure to COVID-19; Z87.891 Personal history of nicotine dependence; Z88.8 Allergy status to other drugs, medicaments and biological substances; Z79.899 Other long term (current) drug therapy
CPT/HCPCS: 36415; 80048; 80076; 80164; 80307; 81001; 85025; 87635; 93005; 99285

== ENCOUNTER 2023-03-01 07:37 | Emergency (ER) | payer MEDICARE, MEDICAID, SELFPAY ==
[2023-03-01 07:43] VITALS: BP 120/80; BP 125/83; PULSE 105; PULSE 80; RESP 18; TEMP 37.1; O2SAT 96; BMI 32.4
--- NOTE | 2023-03-01 07:53 | ECG_ITS ---
Test Reason : cp Blood Pressure : / mmHG Vent. Rate : 101 BPM Atrial Rate : 101 BPM P-R Int : 132 ms QRS Dur : 094 ms QT Int : 332 ms P-R-T Axes : 042 -17 025 degrees QTc Int : 430 ms Sinus tachycardia Otherwise normal ECG When compared with ECG of 25-FEB-2023 10:40, No significant change was found Referred By: Tyson Francois Electronically Signed By:MAEVE DE OLIVEIRA
--- NOTE | 2023-03-01 07:54 | PC.NURSE ---
Pt brought in by EMS, Stated they found him standing in front of the PCP office, reports that he would not talk with them, or give them information. He told ED staff that he has been vomiting since the medication changes we made, and that he wants to be admitted upstairs and have his medications fixed. Pt refusing nausea medication at this time. Skin is diaphoretic, pt refusing to answer all questions, verified allergies. Pt requesting ice water at this time. Provider to place orders
--- NOTE | 2023-03-01 08:01 | ED.GENADULT ---
HPI - General Adult General Chief complaint: General Medical Stated complaint: Vomiting post medication adjustment per EMS Time Seen by Provider: 03/01/23 07:43 Source: patient and EMS Mode of arrival: EMS Limitations: no limitations History of Present Illness HPI narrative: 32-year-old male with history of schizophrenia presents with possible adverse reaction to medications. Patient was recently discharged on February 28 from the hospital from psychiatric care. At the time, he reported bilateral feet were hurting. He had paranoid delusions of [place] trying to evade the [place] because he was [place] T, he had an she screen at the time during his hospitalization, he appeared to be more calm with persistent paranoia. He was sleeping and eating well. His conversations became more logical. Any VATS take his medications appropriately. His last dose of medication was yesterday. He reported developing nausea vomiting weakness. The nausea vomiting or nonbilious, nonbloody, no coffee-ground emesis. He feels generally weak. There is no clear relieving or exacerbating features. Denies any fevers or chills, diarrhea. He denies any significant abdominal pain. He would like to be admitted to the hospital to stop all medications. He denies any suicidal homicidal ideation. He is not expressing any paranoid delusions at this time. Related Data Previous Rx's Medication Instructions Recorded divalproex 500 mg tablet,extended 1,500 mg PO BEDTIME #90 tabs 02/28/23 release 24 hr risperidone 2 mg tablet 2 mg PO BID #60 tabs 02/28/23 Allergies Allergy/AdvReac Type Severity Reaction Status Date / Time quetiapine [From SEROQUEL] Allergy Severe ANAPHYLAXIS Verified 03/01/23 08:36 haloperidol [HALOPERIDOL] Allergy Intermediate SWELLING Verified 03/01/23 08:36 trazodone Allergy Unknown Verified 03/01/23 08:36 [facility] Past Medical History Medical History Schizoaffective disorder Substance abuse Violent behavior Social History Social History Household Members: Unknown / Unable to assess Household Members Other:: grp home Housing: Apartment Unable to assess alcohol history related to: Unknown Alcohol intake: never Patient Tobacco Use Status: Former Tobacco user Smoked in Last 30 Days: Yes Second Hand Smoke Exposure: No Use of substances other than those prescribed or required for medical reasons: Yes Substance Use Type: Marijuana Substance Use Frequency: Chronic Longstanding Last Used Substance: Just Prior to Admission Advance Directives: No service: No Sexual orientation: Don't Know Physical Exam ED Vital Signs: Vital Signs - 24 hr 03/01/23 07:43 Temperature 98.7 F Pulse Rate 105 H Respiratory Rate 18 Blood Pressure 125/83 Pulse Oximetry 96 Oxygen Delivery Method Room Air BMI result Body Mass Index 32.4 GEN: Well developed, no acute distress, alert, oriented HEENT: Normocephalic, atraumatic, normal external ears, nose appears normal, no oropharyngeal edema or exudates Eyes: Normal to appearance Neck: Supple, no lymphadenopathy Respiratory: Talks in complete sentences, no respiratory distress, clear to auscultation bilaterally Cardiovascular: Regular rate and rhythm, no murmurs rubs or gallops Abdomen: Soft, nontender, nondistended, no guarding, no rebound Back: No CVA tenderness Extremities: No clubbing cyanosis or edema Neurologic: No focal neurologic deficits, cranial nerves 2-12 intact, strength is 5/5 bilaterally Skin: No rash Course Course Course Narrative: 32-year-old male with history of schizophrenia, polysubstance abuse presents with possible adverse reactions to the medications. Patient was recently transitioned to rest. Own and Depakote. His last his medications was yesterday. Examination is otherwise benign. He is calm and cooperative. He is not expressing any paranoid delusions or hallucinations at this time. He is not suicidal homicidal. Will check laboratory analysis including a Depakote level to make sure any he is not toxic. I did offer antiemetics but he refused at this time. Tolerating oral liquids at this time Reevaluation(s) Reevaluation #1: patient medical cleared.... patient may have eloped Time: 10:17 Reevaluation #2: Patient was found in the waiting room. He decided to elope. He has no SI or HI. Pose noted immediate threat to self or others based on my evaluation. He does not want to go to respite and would only want to be admitted. At this time, there is note definite indication the patient warrants emergent hospitalization. He was instructed that he can return for re-evaluation at any time. Time: 10:24 Medical Decision Making Medical Decision Making [facility] Narrative: 32-year-old male with history of schizophrenia presents with nausea vomiting. Examination revealed no abdominal tenderness, rebound or guarding. It is possible his new medications or having this adverse effect. Differential diagnosis includes gastroenteritis, IBD, IBS, dysmotility, medication reaction. Will check laboratory analysis. Patient is requesting evaluation to see if can be admitted to get off of all of his medications. I did recently see the patient, he does appear to be more calm and more in put together. Will continue to observe patient an order care team evaluation Differential Diagnosis Differential Diagnoses: The differential diagnosis associated with the presentation includes (See above) Admission/Observation Consideration of admission/observation: Escalation of care including admission/observation considered Consult Healthcare Provider Management of the patient was discussed with: Behavioral Health Provider Lab Data [facility] Lab Attestation statement: I reviewed the patient's lab results. 03/01/23 08:20 03/01/23 08:20 Labs: Lab Results 03/01/23 03/01/23 03/01/23 Range/Units 08:19 08:20 08:20 WBC 17.5 H (4.8-10.8) X10*3/uL RBC 5.36 (4.60-5.80) X10*6/uL Hgb 16.3 (14.0-18.0) g/dl Hct 48.1 (42.0-52.0) % MCV 89.7 (80.0-98.0) fL MCH 30.4 (27.0-33.0) pg MCHC 33.9 (31.0-36.0) g/dl RDW 12.5 (11.0-16.0) % Plt Count 266 (160-400) X10*3/uL MPV 9.6 (9.4-12.4) fL Immature Gran % (Auto) 0.3 (0.0-0.4) % Neut % (Auto) 79.4 H (45-73) % Lymph % (Auto) 12.7 L (20-40) % Winn % (Auto) 7.0 (2-11) % Eos % (Auto) 0.3 (0-4) % Baso % (Auto) 0.3 (0-2) % Lymph # (Auto) 2.2 (1.2-4.9) X10*3/uL Winn # (Auto) 1.2 (0.1-1.2) X10*3/uL Eos # (Auto) 0.1 (0.0-0.4) X10*3/uL Baso # (Auto) 0.1 (0.0-0.2) X10*3/uL Abs Immat Gran (auto) 0.06 H (0.00-0.03) X10*3/uL Absolute Neuts (auto) 13.8 H (2.0-8.3) x10*3/uL Absolute Nucleated RBC 0.000 (0.0-0.012) X10*3/uL Nucleated RBC % (auto) 0.0 (0.0-0.2) /100WBC Sodium (135-145) mmol/L Potassium (3.3-5.1) mmol/L Chloride (96-108) mmol/L Carbon Dioxide (22-29) mmol/L Anion Gap (12-20) BUN (9-16) mg/dL Creatinine (0.5-1.4) mg/dL Estim Creat Clear Calc Estimated GFR Random Glucose (60-115) mg/dL Calcium (8.4-10.2) mg/dL Total Bilirubin (0.0-1.0) mg/dL AST (5-37) U/L ALT (0-40) U/L Alkaline Phosphatase (39-117) U/L Total Protein (6.5-8.0) g/dL Albumin (3.5-5.0) g/dL Valproic Acid < 12.5 L (50.0-100.0) mcg/mL Ethyl Alcohol mg/dL COVID-19 ([facility]) Negative (Negative) COVID-19 Clin Com Y 03/01/23 Range/Units 08:20 WBC (4.8-10.8) X10*3/uL RBC (4.60-5.80) X10*6/uL Hgb (14.0-18.0) g/dl Hct (42.0-52.0) % MCV (80.0-98.0) fL MCH (27.0-33.0) pg MCHC (31.0-36.0) g/dl RDW (11.0-16.0) % Plt Count (160-400) X10*3/uL MPV (9.4-12.4) fL Immature Gran % (Auto) (0.0-0.4) % Neut % (Auto) (45-73) % Lymph % (Auto) (20-40) % Winn % (Auto) (2-11) % Eos % (Auto) (0-4) % Baso % (Auto) (0-2) % Lymph # (Auto) (1.2-4.9) X10*3/uL Winn # (Auto) (0.1-1.2) X10*3/uL Eos # (Auto) (0.0-0.4) X10*3/uL Baso # (Auto) (0.0-0.2) X10*3/uL Abs Immat Gran (auto) (0.00-0.03) X10*3/uL Absolute Neuts (auto) (2.0-8.3) x10*3/uL Absolute Nucleated RBC (0.0-0.012) X10*3/uL Nucleated RBC % (auto) (0.0-0.2) /100WBC Sodium 142 (135-145) mmol/L Potassium 4.4 (3.3-5.1) mmol/L Chloride 104 (96-108) mmol/L Carbon Dioxide 27 (22-29) mmol/L Anion Gap 15 (12-20) BUN 17 H (9-16) mg/dL Creatinine 0.94 (0.5-1.4) mg/dL Estim Creat Clear Calc 125.9 Estimated GFR > 60 Random Glucose 98 (60-115) mg/dL Calcium 10.3 H (8.4-10.2) mg/dL Total Bilirubin 1.4 H (0.0-1.0) mg/dL AST 59 H (5-37) U/L ALT 87 H (0-40) U/L Alkaline Phosphatase 99 (39-117) U/L Total Protein 7.9 (6.5-8.0) g/dL Albumin 4.9 (3.5-5.0) g/dL Valproic Acid (50.0-100.0) mcg/mL Ethyl Alcohol < 10 mg/dL COVID-19 ([facility]) (Negative) COVID-19 Clin Com Independent Interpretation I performed an independent interpretation of an: EKG (Sinus tachycardia heart rate 101, incomplete right bundle-branch block with an RSR prime pattern, early repolarization, no acute ST elevations or depressions, QTC 430 milliseconds no significant changes from 02/26/2020 no significant changes 522) Independent Historian Clinical information obtained from an independent historian. History obtained from or confirmed by: EMS External Record Review External record reviewed: Inpatient record Prescription Management I considered prescription management with: Other (Antiemetics) Chronic Conditions Patient?s care impacted by: Other (Schizophrenia) Discharge Plan Discharge Clinical Impression: Schizoaffective disorder, Nausea & vomiting Patient Disposition: Elopement Prescriptions: No Action risperidone 2 mg Tablet 2 mg PO BID Qty: 60 0RF divalproex 500 mg Tablet Extended Release 24 Hr 1,500 mg PO BEDTIME Qty: 90 0RF
--- NOTE | 2023-03-01 08:07 | PHA.MEDREC ---
Pharmacy Consult ? Medication Reconciliation Pharmacy has completed the medication reconciliation. Patient recently discharged on 02/28/23. Utilized medical records and discharge meds to confirm meds.
[2023-03-01 08:27] LABS: MANUAL DIFF FLAG NO
[2023-03-01 08:29] LABS: Basophils Absolute Auto 0.1 X10*3/uL (0.0-0.2); Basophils Percent Auto 0.3 % (0-2); Eosinophils Absolute Auto 0.1 X10*3/uL (0.0-0.4); Eosinophils Percent Auto 0.3 % (0-4); Hematocrit 48.1 % (42.0-52.0); Hemoglobin 16.3 g/dl (14.0-18.0); Imm Gran Abs Auto 0.06 X10*3/uL (0.00-0.03); Imm Gran Pct Auto 0.3 % (0.0-0.4); Lymphocytes Absolute Auto 2.2 X10*3/uL (1.2-4.9); Lymphocytes Percent Auto 12.7 % (20-40); Mean Corpuscular HGB Conc 33.9 g/dl (31.0-36.0); Mean Corpuscular Hemoglobin 30.4 pg (27.0-33.0); Mean Corpuscular Volume 89.7 fL (80.0-98.0); Mean Platelet Volume 9.6 fL (9.4-12.4); Monocytes Absolute Auto 1.2 X10*3/uL (0.1-1.2); Neutrophils Absolute Auto 13.8 x10*3/uL (2.0-8.3); Neutrophils Percent Auto 79.4 % (45-73); Platelet Count 266 X10*3/uL (160-400); Red Blood Count 5.36 X10*6/uL (4.60-5.80); Red Cell Distribution Width 12.5 % (11.0-16.0); White Blood Count 17.5 X10*3/uL (4.8-10.8)
[2023-03-01 08:48] LABS: Alanine Aminotransferase 87 U/L (0-40); Albumin Level 4.9 g/dL (3.5-5.0); Alkaline Phosphatase 99 U/L (39-117); Anion Gap 15 (12-20); Aspartate Amino Transferase 59 U/L (5-37); Bilirubin Total 1.4 mg/dL (0.0-1.0); Blood Urea Nitrogen 17 mg/dL (9-16); Calcium 10.3 mg/dL (8.4-10.2); Carbon Dioxide 27 mmol/L (22-29); Chloride 104 mmol/L (96-108); Creatinine Clr Calc Pharmacy 125.9; Estimated Glomerular Filt Rate > 60; Ethanol < 10 mg/dL; Glucose Random 98 mg/dL (60-115); Potassium 4.4 mmol/L (3.3-5.1); Sodium 142 mmol/L (135-145); Total Protein 7.9 g/dL (6.5-8.0)
[2023-03-01 08:54] LABS: COVID-19 Test Negative (Negative); IDNOW Serial# 08D9AD1C
[2023-03-01 08:56] LABS: Valproate < 12.5 mcg/mL (50.0-100.0)
[2023-03-01 08:57] LABS: COVID-19 Note Y
--- NOTE | 2023-03-01 10:16 | PC.NURSE ---
Pt found to not be in room, bathrooms checked with no resolve. Per staff in triage pt at one time was by main doors, but they did not visualize him leave. Pt found to be in waiting room swearing on the phone, pt veralized he is leaving AMA that he is not going to respite care. made aware, layne made aware. Charge nurse aware. No iv was in place. Pt is not SI/HI at this time
--- NOTE | 2023-03-01 12:22 | MHC.CARE ---
CARE Team notified Pt eloped from ED.
--- NOTE | 2023-03-01 12:23 | MHC.CARE ---
CARE Team notified Pts svp group director via VM that Pt eloped ED.
--- NOTE | 2023-03-01 12:23 | MHC.CARE ---
CARE Team placed Pt on alert with [facility] crisis.
== END 2023-03-01 10:28 | disposition left against medical advice (07) ==
PROVIDERS: Emergency Provider Emergency Medicine
DX: F25.9 Schizoaffective disorder, unspecified (principal); R11.2 Nausea with vomiting, unspecified; Z20.822 Contact with and (suspected) exposure to COVID-19; I45.10 Unspecified right bundle-branch block; F19.10 Other psychoactive substance abuse, uncomplicated; Z79.899 Other long term (current) drug therapy
CPT/HCPCS: 36415; 80053; 80164; 80307; 85025; 87635; 93005; 99284

== ENCOUNTER 2023-03-15 23:14 | Emergency (ER) | payer MEDICARE, MEDICAID, SELFPAY ==
[2023-03-15 23:22] VITALS: BP 155/97; PULSE 115; RESP 18; TEMP 35.9; O2SAT 94; BMI 26.6
[2023-03-16 00:19] LABS: Glucose, Whole Blood 102 mg/dL (60-115)
[2023-03-16 00:40] VITALS: BP 136/91; PULSE 91; RESP 17; TEMP 36.8; O2SAT 99
[2023-03-16 00:51] LABS: Glucose, Whole Blood 121 mg/dL (60-115)
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
--- NOTE | 2023-03-16 01:24 | ED.PSYCH ---
HPI - Psych General Chief Complaint: Nausea/Vomiting/Diarrhea Stated Complaint: Med Reaction/ Vomiting Time Seen by Provider: 03/16/23 01:07 Source: patient Mode of arrival: ambulatory Limitations: no limitations History of Present Illness HPI Narrative: Patient comes emergency room complaining of nausea vomiting secondary to medications. However, when I spoke to the patient, patient states that he does not have nausea or vomiting, patient states that he is upset that his psych medications are not working Related Data Home Medications Medication Instructions Recorded Confirmed baclofen 10 mg tablet 10 mg PO BID 03/16/23 03/16/23 chlorpromazine 100 mg tablet 100 mg PO BID 03/16/23 03/16/23 divalproex 250 mg tablet,extended 750 mg PO BEDTIME 03/16/23 03/16/23 release 24 hr levothyroxine 50 mcg tablet 50 mcg PO DAILY 03/16/23 03/16/23 olanzapine 15 mg tablet 15 mg PO BEDTIME 03/16/23 03/16/23 risperidone 2 mg tablet 2 mg PO BID 03/16/23 03/16/23 Allergies Allergy/AdvReac Type Severity Reaction Status Date / Time quetiapine [From SEROQUEL] Allergy Severe ANAPHYLAXIS Verified 03/01/23 08:36 haloperidol [HALOPERIDOL] Allergy Intermediate SWELLING Verified 03/01/23 08:36 trazodone Allergy Unknown Verified 03/01/23 08:36 Review of Systems Review of Systems: Constitutional : No Weight loss, No Fever, No Chills, No Night Sweats, No Fatigue, No Malaise ENT/Mouth : No Hearing loss, No Ear Pain, No Nasal Congestion, No Sinus Pain, No Hoarseness, No sore throat, No Rhinorrhea, No Swallowing Difficulty Eyes: No Eye Pain, No Swelling, No Redness, No Foreign Body, No Discharge, No Vision Changes Cardiovascular : No Chest Pain, No SOB, No Dyspnea on Exertion, No Orthopnea, No Edema, No Palpitations Respiratory : No Cough, No Sputum, No Wheezing, No Smoke Exposure, No Dyspnea Gastrointestinal : No Nausea, No Vomiting, No Diarrhea, No Constipation, No abdominal Pain, No Hematochezia, No Melena Genitourinary : no irregular bleeding, No Dysuria, No Urinary Frequency, No Hematuria, No Urinary Incontinence, No Urgency, No Flank Pain, No Urinary Flow Changes, No Hesitancy Musculoskeletal : No joint pain, No Myalgias, No Joint Swelling Skin : No Skin Lesions, No rash Neuro : No Weakness, No Numbness, No Paresthesias, No Loss of Consciousness, No Dizziness, No Headache Psych : No Anxiety/Panic, No Depression, No SI/HI/AH/VH, patient complaining that his psych medications are not working, no specifics Heme/Lymph: No Bruising, No Bleeding,No Lymphadenopathy Endocrine : No Polyuria, No Polydipsia, No Temperature Intolerance PENDING SALE TO [facility] Past Medical History Medical History Schizoaffective disorder Substance abuse Violent behavior Social History Social History Household Members: Unknown / Unable to assess Household Members Other:: grp home Housing: Apartment Unable to assess alcohol history related to: Unknown Alcohol intake: never Patient Tobacco Use Status: Former Tobacco user Second Hand Smoke Exposure: No Substance Use Type: Marijuana service: No Sexual orientation: Don't Know Physical Exam Vital Signs: Vital Signs: Last Vital Signs Temp 98.2 F 03/16/23 00:40 Pulse 91 03/16/23 00:40 Resp 17 03/16/23 00:40 BP 136/91 H 03/16/23 00:40 Pulse Ox 99 03/16/23 00:40 O2 Del Method Room Air 03/16/23 00:40 BMI result Body Mass Index 26.6 Const: Other: Appearance: Alert. Oriented X3. No acute distress. Eyes: Pupils equal, round and reactive to light. ENT: Pharynx normal. Neck: Normal inspection. Neck supple. No lymph nodes noted. No crepitus CVS: Normal heart rate and rhythm. Pulses normal. Normal S1 and S2 Respiratory: No respiratory distress. Breath sounds normal. No Wheezing. No rales Abdomen: Soft and nontender. No rigidity. No distention. Skin: Skin warm and dry. Normal skin color. Normal skin turgor. Extremities: No lower extremity edema. No Lacerations. No Rash Neuro: Oriented X 3. No motor deficit. No sensory deficit. Moving all extremities. No slurred speech. CN 2 through 12 grossly intact, a bit tangential speech Psych: calm, cooperative, normal affect Course Course Course Narrative: -all labs pending -phys obs started at 01:50 -care can consult pending -patient is not SI or HI, still able to hold fairly normal conversations, not aggressive, not on a [place] 12 at this time Medical Decision Making Lab Data Labs: Lab Results 03/16/23 03/16/23 Range/Units 00:15 00:46 POC Glucose 102 121 H (60-115) mg/dL Discharge Plan Discharge Clinical Impression: Schizoaffective disorder Patient Disposition: Still a Patient Prescriptions: No Action risperidone 2 mg Tablet 2 mg PO BID Qty: 60 0RF divalproex 500 mg Tablet Extended Release 24 Hr 1,500 mg PO BEDTIME Qty: 90 0RF
--- NOTE | 2023-03-16 01:26 | PC.NURSE ---
pt being price changer by security
--- NOTE | 2023-03-16 01:37 | PC.NURSE ---
pt transferred to
[2023-03-16 01:46] LABS: MANUAL DIFF FLAG NO
[2023-03-16 01:47] LABS: Basophils Absolute Auto 0.1 X10*3/uL (0.0-0.2); Basophils Percent Auto 0.3 % (0-2); Eosinophils Absolute Auto 0.1 X10*3/uL (0.0-0.4); Eosinophils Percent Auto 0.4 % (0-4); Hematocrit 49.5 % (42.0-52.0); Hemoglobin 17.1 g/dl (14.0-18.0); Imm Gran Abs Auto 0.08 X10*3/uL (0.00-0.03); Imm Gran Pct Auto 0.5 % (0.0-0.4); Lymphocytes Absolute Auto 2.6 X10*3/uL (1.2-4.9); Lymphocytes Percent Auto 17.2 % (20-40); Mean Corpuscular HGB Conc 34.5 g/dl (31.0-36.0); Mean Corpuscular Hemoglobin 30.4 pg (27.0-33.0); Mean Corpuscular Volume 87.9 fL (80.0-98.0); Mean Platelet Volume 9.6 fL (9.4-12.4); Monocytes Absolute Auto 1.2 X10*3/uL (0.1-1.2); Monocytes Percent Auto 8.1 % (2-11); Neutrophils Absolute Auto 10.9 x10*3/uL (2.0-8.3); Neutrophils Percent Auto 73.5 % (45-73); Platelet Count 305 X10*3/uL (160-400); Red Blood Count 5.63 X10*6/uL (4.60-5.80); Red Cell Distribution Width 12.3 % (11.0-16.0); White Blood Count 14.9 X10*3/uL (4.8-10.8)
[2023-03-16 01:58] LABS: COVID-19 Test Negative (Negative); IDNOW Serial# BCCEAD1C
[2023-03-16 02:03] LABS: Ethanol < 10 mg/dL
[2023-03-16 02:04] LABS: Valproate < 12.5 mcg/mL (50.0-100.0)
[2023-03-16 02:06] LABS: Alanine Aminotransferase 102 U/L (0-40); Alkaline Phosphatase 99 U/L (39-117); Anion Gap 16 (12-20); Aspartate Amino Transferase 57 U/L (5-37); Bilirubin Direct 0.3 mg/dL (0.0-0.5); Bilirubin Total 0.9 mg/dL (0.0-1.0); Blood Urea Nitrogen 11 mg/dL (9-16); Calcium 10.6 mg/dL (8.4-10.2); Carbon Dioxide 28 mmol/L (22-29); Chloride 103 mmol/L (96-108); Creatinine Clr Calc Pharmacy 101.2; Estimated Glomerular Filt Rate > 60; Glucose Random 100 mg/dL (60-115); Potassium 4.4 mmol/L (3.3-5.1); Sodium 143 mmol/L (135-145)
--- NOTE | 2023-03-16 06:20 | MHC.EDTECH ---
pt asked to take a shower, t/w attempted to obtain urine sample and pt stated no that's not needed. RN MADE AWARE.
--- NOTE | 2023-03-16 06:21 | PC.NURSE ---
Patient slept through the night, no distress observed/reported, med rec completed/pending provider's approval, showered, refused to provide urine sample, behavior non concerning, Care consult ordered/pending evaluation in the morning, will continue to monitor.
[2023-03-16] MEDS: Levothyroxine Sodium 50 MCG TABLET PO (08:27)
[2023-03-16] MEDS: Baclofen 10 MG TABLET PO (08:27)
[2023-03-16] MEDS: chlorproMAZINE HCl 100 MG TABLET PO (08:27)
[2023-03-16] MEDS: risperiDONE 2 MG TABLET PO (08:27)
[2023-03-16 11:51] VITALS: BP 108/59; PULSE 108; RESP 18; TEMP 36.4; O2SAT 94
[2023-03-16 11:54] LABS: Appearance Urine Clear; Color Urine Yellow; Glucose Urine UA Negative (Negative); Leukocyte Esterase Urine Small (1+) (Negative); Nitrite Urine Negative (Negative); PH 6.5 (5.0-9.0); UMIC TRIGGER UACC YES; Urine Blood Negative (Negative); Urine Ketones Negative (Negative); Urine Protein Negative (Neg-Trace)
[2023-03-16 12:12] LABS: Bacteria Urine None Seen (None Seen); Hyaline Casts Urine 0-2 /LPF (0-2); RBC Urine 0-2 /HPF (0-2); Squamous Epithelial Cell Urine 0-2 /HPF (0-2); UACC Culture Trigger YES; WBC Urine 0-5 /HPF (0-5)
[2023-03-16 12:24] LABS: Amphetamine Screen Urine Not Detected (Not Detect); Barbiturates, Urine Not Detected (Not Detect); Benzodiazepines Screen Urine Not Detected (Not Detect); Cannabinoid Screen Urine POSITIVE (Not Detect); Cocaine Screen Urine POSITIVE (Not Detect); Fentanyl, urine POSITIVE (Not Detect); Opiate Screen Urine Not Detected (Not Detect); Phencyclidine Screen Urine Not Detected (Not Detect)
--- NOTE | 2023-03-16 13:37 | PC.NURSE ---
Patient came out of room visibly upset asking where's that bitch that was just in here. Patient was informed by CARE team that he will be getting discharged today and patient is unhappy about this call this nurse a bitch and cunt and also stating just give me my fucking clothes. Patient went back into room and threw tray of food. Provider aware of this and the plan is still for patient to be discharged.
== END 2023-03-16 13:47 | disposition home or self-care (01) ==
PROVIDERS: Emergency Provider Emergency Medicine
DX: F25.9 Schizoaffective disorder, unspecified (principal); Z20.822 Contact with and (suspected) exposure to COVID-19; F19.10 Other psychoactive substance abuse, uncomplicated; Z79.899 Other long term (current) drug therapy
CPT/HCPCS: 36415; 80048; 80076; 80164; 80307; 81001; 82947; 85025; 87086; 87635; 99284

== ENCOUNTER 2024-02-06 22:54 | Emergency (ER) | payer MEDICARE, MEDICAID, SELFPAY ==
[2024-02-06 23:31] VITALS: BP 110/90; PULSE 82; O2SAT 98
[2024-02-06 23:34] VITALS: BP 121/82; PULSE 81; RESP 18; TEMP 36.9; O2SAT 96; BMI 29.3
[2024-02-07 00:54] LABS: MANUAL DIFF FLAG NO
[2024-02-07 00:55] LABS: Basophils Absolute Auto 0.1 X10*3/uL (0.0-0.2); Basophils Percent Auto 0.4 % (0-2); Eosinophils Absolute Auto 0.3 X10*3/uL (0.0-0.4); Eosinophils Percent Auto 2.3 % (0-4); Hematocrit 46.7 % (42.0-52.0); Hemoglobin 16.2 g/dl (14.0-18.0); Imm Gran Abs Auto 0.04 X10*3/uL (0.00-0.03); Imm Gran Pct Auto 0.3 % (0.0-0.4); Lymphocytes Absolute Auto 3.2 X10*3/uL (1.2-4.9); Lymphocytes Percent Auto 27.2 % (20-40); Mean Corpuscular HGB Conc 34.7 g/dl (31.0-36.0); Mean Corpuscular Hemoglobin 31.6 pg (27.0-33.0); Mean Corpuscular Volume 91.2 fL (80.0-98.0); Mean Platelet Volume 10.3 fL (9.4-12.4); Monocytes Absolute Auto 0.9 X10*3/uL (0.1-1.2); Monocytes Percent Auto 7.9 % (2-11); Neutrophils Absolute Auto 7.2 x10*3/uL (2.0-8.3); Neutrophils Percent Auto 61.9 % (45-73); Platelet Count 265 X10*3/uL (160-400); Red Blood Count 5.12 X10*6/uL (4.60-5.80); Red Cell Distribution Width 12.8 % (11.0-16.0); White Blood Count 11.7 X10*3/uL (4.8-10.8)
[2024-02-07 01:10] LABS: Alanine Aminotransferase 38 U/L (0-40); Albumin Level 4.3 g/dL (3.5-5.0); Alkaline Phosphatase 69 U/L (39-117); Anion Gap 13 (12-20); Aspartate Amino Transferase 30 U/L (5-37); Bilirubin Total 0.4 mg/dL (0.0-1.0); Blood Urea Nitrogen 11 mg/dL (9-16); Calcium 9.7 mg/dL (8.4-10.2); Carbon Dioxide 26 mmol/L (22-29); Chloride 106 mmol/L (96-108); Creatinine Clr Calc Pharmacy 151.3; Estimated Glomerular Filt Rate > 60; Glucose Random 96 mg/dL (60-115); Potassium 4.2 mmol/L (3.3-5.1); Sodium 141 mmol/L (135-145); Total Protein 6.8 g/dL (6.5-8.0)
[2024-02-07 03:05] VITALS: BP 103/67; PULSE 74; RESP 20; TEMP 36.6; O2SAT 99
--- NOTE | 2024-02-07 05:17 | PC.NURSE ---
Pt remains calm and cooperative, needs continue to be met. Pt calling out to staff requesting his ativan and other meds stating i came here for anxiety man, I need my meds and I've been waiting for them . Pt made aware that he is awaiting primary eval by MD, to which he responded well can't one of you nurses just give me my meds? . Pt advised that although nursing staff administers the medication it is not accessible without an order from the provider. He responded well to this news and was noted to independently lower the head of his bed and is currently laying supine on the stretcher with eyes open, respirations even and unlabored and no acute distress noted.
[2024-02-07 06:41] VITALS: BP 116/70; PULSE 77; RESP 16; TEMP 36.7; O2SAT 98
--- NOTE | 2024-02-07 08:12 | ED.PSYCH ---
HPI - Psych General Chief Complaint: Psychiatric Symptoms Stated Complaint: ANXIETY Time Seen by Provider: 02/07/24 06:47 Source: patient Mode of arrival: ambulatory Limitations: no limitations History of Present Illness HPI Narrative: 33-year-old male history of schizoaffective disorder, polysubstance abuse, hypothyroidism, presenting to the emergency department for evaluation of anxiety, visual and auditory hallucinations. He reports he is anxious about his family situation, reported to nurses that he is nervous that voices are telling him that his family is going to be hurt and he is very worried about this. Patient tells me does not really want to talk about specifics at this time. Denies tactile hallucinations. Denies drugs, alcohol and tobacco. Resides in a intermediate. Tells me he has not taken his meds for few days. Denies medical complaints. Related Data Home Medications ?Medication ?Instructions ?Recorded ?Confirmed baclofen 10 mg tablet 10 mg PO BID 03/16/23 03/16/23 chlorpromazine 100 mg tablet 100 mg PO BID 03/16/23 03/16/23 divalproex 250 mg tablet,extended 750 mg PO BEDTIME 03/16/23 03/16/23 release 24 hr levothyroxine 50 mcg tablet 50 mcg PO DAILY 03/16/23 03/16/23 olanzapine 15 mg tablet 15 mg PO BEDTIME 03/16/23 03/16/23 risperidone 2 mg tablet 2 mg PO BID 03/16/23 03/16/23 Allergies Allergy/AdvReac Type Severity Reaction Status Date / Time quetiapine [From SEROQUEL] Allergy Severe ANAPHYLAXIS Verified 02/06/24 23:43 haloperidol [HALOPERIDOL] Allergy Intermediate SWELLING Verified 02/06/24 23:43 trazodone Allergy Unknown Verified 02/06/24 23:43 Review of Systems Review of Systems: Constitutional : No Weight loss, No Fever, No Chills, No Fatigue, No Malaise ENT/Mouth : No sore throat, No Rhinorrhea Eyes: No Eye Pain, No Swelling, No Redness Cardiovascular : No Chest Pain, No SOB, No Dyspnea on Exertion, No Orthopnea, No Edema, No Palpitations Respiratory : No Cough, No Sputum, No Wheezing Gastrointestinal : No Nausea, No Vomiting, No Diarrhea, No Constipation, No abdominal Pain, No Hematochezia, No Melena Genitourinary : No Dysuria, No Urinary Frequency, No Hematuria, Musculoskeletal : No joint pain, No Myalgias, No Joint Swelling Skin : No Skin Lesions, No rash Neuro : No Weakness, No Numbness, No Dizziness, No Headache Psych : + Anxiety/Panic, No Depression, No SI/ HI, + hallcuinations All other systems reviewed and are negative Yes all other systems are reviewed and are negative PMFSH Past Medical History Attestation statement: The following information was validated with the patient. Source: old records reviewed and nursing notes reviewed Medical History Substance abuse Violent behavior Schizoaffective disorder Social History Social History Household Members: Unknown / Unable to assess Household Members Other:: grp home Housing: Apartment Unable to assess alcohol history related to: Unknown Alcohol intake: never Patient Tobacco Use Status: Former Tobacco user Smoked in Last 30 Days: No Second Hand Smoke Exposure: No Use of substances other than those prescribed or required for medical reasons: No Substance Use Type: Marijuana Any prior treatment program specific to substance use: No Advance Directives: No Advance Directives Information Provided: Yes service: No Sexual orientation: Don't Know Physical Exam Vital Signs: Vital Signs: Last Vital Signs Temp 98.1 F 02/07/24 06:41 Pulse 77 02/07/24 06:41 Resp 16 02/07/24 06:41 BP 116/70 02/07/24 06:41 Pulse Ox 98 02/07/24 06:41 O2 Del Method Room Air 02/07/24 06:41 BMI result Body Mass Index 29.3 vss Appearance: Alert.? Oriented X3.? No acute distress.? Head: Normocephalic, atraumatic, no step-offs or deformities Eyes: Pupils equal, round and reactive to light.? ENT: Pharynx normal.? Neck: Normal inspection.? Neck supple.? CVS: Normal heart rate and rhythm.? Pulses normal.? Respiratory: No respiratory distress.? Breath sounds normal.? Abdomen: Soft and nontender.? Skin: Skin warm and dry.? Normal skin color.? Normal skin turgor.? Extremities: No lower extremity edema.? No calf ttp. 5/5 strength to bilateral upper and lower extremities Neuro: Oriented X 3.? No motor deficit.? No sensory deficit. CN 2-12 intact Course Reevaluation(s) Reevaluation #1: CBC with slight leukocytosis appears to be around patient's baseline. Unlikely infectious. Chemistry unremarkable. Urine toxicology and UA pending. Time: 08:16 Reevaluation #2: This time patient to be placed into physician observation to allow more time to be evaluated by the care team. At time observation started patient common cooperative no acute distress will continue to monitor. Time: 10:45 Reevaluation #3: Patient evaluated by care team. Who feel as though patient is safe to go back to intermediate he has resources, he has been taking his meds per intermediate staff. Patient will be provided with a ride home Educated patient on diagnosis and treatment plan, answered all question, patient verbalizes understanding. At this time patient will be discharged home, advised to return with new or worsening symptoms. Educated on worrisome signs and symptoms and when to return. At this time I feel comfortable discharge home. Time: 11:03 Medications Administered Discontinued Medications Generic Name Dose Route Start Last Admin Trade Name Stefan PRN Reason Stop Dose Admin Lorazepam 1 mg 02/07/24 10:20 02/07/24 11:02 Lorazepam 1 Mg Tablet PO 02/07/24 10:21 Not Given ONCE ONE Medical Decision Making Medical Decision Making [facility] Narrative: 0813 33-year-old male presents for evaluation of anxiety times a few days worsening reports increasing life stressors. No SI or HI. Reported to nursing he was having hallucinations and fear that his family was going to get hurt. Reports that he hasnt been taking meds Physical exam patient with rapid pressured speech anxious appearing. Somewhat paranoid. History and physical exam concerning for anxiety versus paranoia versus depression. I am also concerned for polysubstance abuse. Unlikely metabolic derangements. Plan medical clearance evaluation by behavioral health team Differential Diagnosis Differential Diagnoses: The differential diagnosis associated with the presentation includes History and physical exam concerning for anxiety versus paranoia versus depression. I am also concerned for polysubstance abuse. Unlikely metabolic derangements. Admission/Observation Consideration of admission/observation: Escalation of care including admission/observation considered possible Lab Data [facility] Lab Attestation statement: I reviewed the patient's lab results. 02/07/24 00:51 02/07/24 00:51 Labs: Lab Results 02/07/24 Range/Units 00:51 WBC 11.7 H (4.8-10.8) X10*3/uL RBC 5.12 (4.60-5.80) X10*6/uL Hgb 16.2 (14.0-18.0) g/dl Hct 46.7 (42.0-52.0) % MCV 91.2 (80.0-98.0) fL MCH 31.6 (27.0-33.0) pg MCHC 34.7 (31.0-36.0) g/dl RDW 12.8 (11.0-16.0) % Plt Count 265 (160-400) X10*3/uL MPV 10.3 (9.4-12.4) fL Immature Gran % (Auto) 0.3 (0.0-0.4) % Neut % (Auto) 61.9 (45-73) % Lymph % (Auto) 27.2 (20-40) % [place] % (Auto) 7.9 (2-11) % Eos % (Auto) 2.3 (0-4) % Baso % (Auto) 0.4 (0-2) % Lymph # (Auto) 3.2 (1.2-4.9) X10*3/uL [place] # (Auto) 0.9 (0.1-1.2) X10*3/uL Eos # (Auto) 0.3 (0.0-0.4) X10*3/uL Baso # (Auto) 0.1 (0.0-0.2) X10*3/uL Abs Immat Gran (auto) 0.04 H (0.00-0.03) X10*3/uL Absolute Neuts (auto) 7.2 (2.0-8.3) x10*3/uL Absolute Nucleated RBC 0.000 (0.0-0.012) X10*3/uL Nucleated RBC % (auto) 0.0 (0.0-0.2) /100WBC Sodium 141 (135-145) mmol/L Potassium 4.2 (3.3-5.1) mmol/L Chloride 106 (96-108) mmol/L Carbon Dioxide 26 (22-29) mmol/L Anion Gap 13 (12-20) BUN 11 (9-16) mg/dL Creatinine 0.81 (0.5-1.4) mg/dL Estim Creat Clear Calc 151.3 Estimated GFR > 60 Random Glucose 96 (60-115) mg/dL Calcium 9.7 D (8.4-10.2) mg/dL Total Bilirubin 0.4 (0.0-1.0) mg/dL AST 30 (5-37) U/L ALT 38 (0-40) U/L Alkaline Phosphatase 69 (39-117) U/L Total Protein 6.8 (6.5-8.0) g/dL Albumin 4.3 (3.5-5.0) g/dL External Record Review External record reviewed: Inpatient record, Office record, Outpatient record, Prior outpatient labs, Prior outpatient radiology, Primary care record and Outside ED record Chronic Conditions Patient?s care impacted by: Other (Schizoaffective disorder, polysubstance abuse, violent behavior) Social Determinants Patient?s care significantly limited by Social Determinants of Health including: Other Social Determinant of Health Critical Care Time Critical Care Time Critical Care Time: No Discharge Plan Discharge Clinical Impression: Schizoaffective disorder Patient Disposition: Home, Self-Care Instructions: Schizoaffective Disorder (ED) Additional Instructions: Take your medications as prescribed. If you were prescribed antibiotics today, it is important that you take your medication to their entirety, do not skip any doses, do not finish them early. Follow-up with your primary care provider this week. Return to the emergency department with new or worsening symptoms. Such as fevers, chills, chest pain, shortness of breath, nausea, vomiting, dizziness, headache, vision changes, lethargy In case of emergency call 911 Prescriptions: No Action chlorpromazine 100 mg tablet 100 mg PO BID risperidone 2 mg tablet 2 mg PO BID baclofen 10 mg tablet 10 mg PO BID olanzapine 15 mg tablet 15 mg PO BEDTIME divalproex 250 mg tablet extended release 24 hr 750 mg PO BEDTIME levothyroxine 50 mcg tablet 50 mcg PO DAILY Referrals: Physician,Unknown J [Primary Care Provider] - 2 days Interventions: Clarence-Suicide Risk Severity Scale Last Done: 02/07/24 03:34 Print Language: Sinhala
--- NOTE | 2024-02-07 09:12 | MHC.EDTECH ---
Patient refused blood isha!!!
[2024-02-07 11:02] VITALS: BP 116/70; PULSE 77; RESP 16; TEMP 36.7; O2SAT 98
== END 2024-02-07 11:15 | disposition home or self-care (01) ==
PROVIDERS: Emergency Provider Emergency Medicine
DX: F25.9 Schizoaffective disorder, unspecified (principal)
CPT/HCPCS: 36415; 80053; 85025; 99284; S9485

== ENCOUNTER 2024-11-02 23:56 | Inpatient (IN) | payer MEDICARE, MEDICAID, SELFPAY ==
[2024-11-02 23:57] VITALS: BP 109/69; PULSE 83; RESP 18; TEMP 36.6; O2SAT 95; BMI 25.9
--- NOTE | 2024-11-03 00:12 | MHC.EDTECH ---
attempted labs in triage, pt refused.
--- NOTE | 2024-11-03 00:20 | PC.NURSE ---
Patient arrived, sitting up in bed. Patient is calm and responsive to questions. Reports hallucinations, being attacked by a ghost, denies SI/HI. Patient agreed to change advisor into hospital attire, security present. Patient requested & given leonila yash and chicken sandwich. Patient agreed to changeover into hospital attire, and urine specimen collection, but refuses blood draw stating my parents say that I can't have a needle touch me. I am god and the wrath of the lords with come get you all and put you in hell . camp assistant aware. Sitter to bedside. Attempted to contact CARE team, but no response.
[2024-11-03 01:04] LABS: Amphetamine Screen Urine Not Detected (Not Detect); Barbiturates, Urine Not Detected (Not Detect); Benzodiazepines Screen Urine Not Detected (Not Detect); Buprenorphine Scr Not Detected (Not Detect); Cannabinoid Screen Urine Not Detected (Not Detect); Cocaine Screen Urine POSITIVE (Not Detect); Fentanyl, urine Not Detected (Not Detect); Methadone Screen, Urine Not Detected (Not Detect); Opiate Screen Urine Not Detected (Not Detect); Oxycodone Screen Urine Not Detected (Not Detect); Phencyclidine Screen Urine Not Detected (Not Detect)
--- NOTE | 2024-11-03 01:06 | ED_ITS ---
HPI - Psych General Chief Complaint: Psychiatric Symptoms Stated Complaint: hearing voices Time Seen by Provider: 11/03/24 00:25 Source: patient Limitations: no limitations History of Present Illness ED Provider: Tracey Arizmendi PA-C HPI Narrative: 33-year-old male with a history of schizoaffective disorder, polysubstance abuse, presents with visual hallucinations. Pain has been verbalizing to staff that he is ?seeing black shadows and hearing voices?. Furthermore he proceeds to explain that he has been ?attacked by a ghost?. Patient denies SI or HI. Related Data Home Medications ?Medication ?Instructions ?Recorded ?Confirmed baclofen 10 mg tablet 10 mg PO BID 03/16/23 03/16/23 chlorpromazine 100 mg tablet 100 mg PO BID 03/16/23 03/16/23 divalproex 250 mg tablet,extended 750 mg PO BEDTIME 03/16/23 03/16/23 release 24 hr levothyroxine 50 mcg tablet 50 mcg PO DAILY 03/16/23 03/16/23 olanzapine 15 mg tablet 15 mg PO BEDTIME 03/16/23 03/16/23 risperidone 2 mg tablet 2 mg PO BID 03/16/23 03/16/23 Allergies Allergy/AdvReac Type Severity Reaction Status Date / Time quetiapine [From SEROQUEL] Allergy Severe ANAPHYLAXIS Verified 11/02/24 23:58 haloperidol [HALOPERIDOL] Allergy Intermediate SWELLING Verified 11/02/24 23:58 trazodone Allergy Unknown Verified 11/02/24 23:58 Review of Systems Review of Systems: Yes all other systems are reviewed and are negative Constitutional: Constitutional: Denies fever(s) Cardiovascular: Cardiovascular: Denies chest pain and Denies dyspnea Respiratory: Respiratory: Denies dyspnea Gastrointestinal: Gastrointestinal: Denies abdominal pain [facility] Past Medical History Attestation statement: The following information was validated with the patient. Medical History Substance abuse Violent behavior Schizoaffective disorder Social History Social History Household Members: Unknown / Unable to assess Household Members Other:: grp home Housing: Apartment Unable to assess alcohol history related to: Unknown Alcohol intake: never Patient Tobacco Use Status: Former Tobacco user Second Hand Smoke Exposure: No Substance Use Type: Marijuana Advance Directives: No Advance Directives Information Provided: Yes Do you have a plan to hurt others: No Plan service: No Sexual orientation: Don't Know Physical Exam Vital Signs: Vital Signs: Last Vital Signs Temp 97.8 F 11/03/24 01:51 Pulse 72 11/03/24 01:51 Resp 16 11/03/24 01:51 BP 97/63 11/03/24 01:51 Pulse Ox 97 11/03/24 01:51 O2 Del Method Room Air 11/03/24 01:51 BMI result Body Mass Index 25.9 Const: Other: Alert Orientation/consciousness: patient oriented x3 Resp: Effort & Inspection: normal respiratory effort Cardio: Other: Normal peripheral perfusion Skin: Other: Warm dry no rash Neuro: General: patient oriented x3, gait normal, no focal motor deficits and CN's II-XI intact bilaterally Psych: Other: Patient is exhibiting hyper scientologist behavior, refusing labs, stating that he is ?God?, he has also been observed to be responding to internal stimuli Medical Decision Making Medical Decision Making MDM Narrative: 33-year-old male with a history of schizoaffective disorder, polysubstance abuse, presents with visual hallucinations. Pain has been verbalizing to staff that he is ?seeing black shadows and hearing voices?. Furthermore he proceeds to explain that he has been ?attacked by a ghost?. Patient denies SI or HI. Problem: Substance abuse, schizoaffective disorder History: Per patient I have considered the following differential diagnoses: Decompensated psychiatric illness, drug/alcohol intoxication, SI, HI Plan: Screening labs including serum ethanol and drug screen were ordered. Patient continues to refuse serum labs. He did give a urine sample. The care team was aware, the patient is well known to their service, he will be assessed in the morning, they are not pushing for mandatory lab studies prior to his assessment. I have independently reviewed the following tests: Labs: U tox positive for cocaine Lab Data Labs: Lab Results 11/03/24 Range/Units 00:48 Urine Opiates Screen Not Detected (Not Detect) Ur Buprenorphine Scrn Not Detected (Not Detect) ng/mL Ur Oxycodone Screen Not Detected (Not Detect) ng/mL Urine Methadone Screen Not Detected (Not Detect) ng/mL Urine Fentanyl Screen Not Detected (Not Detect) Ur Barbiturates Screen Not Detected (Not Detect) Ur Phencyclidine Scrn Not Detected (Not Detect) Ur Amphetamines Screen Not Detected (Not Detect) U Benzodiazepines Scrn Not Detected (Not Detect) Urine Cocaine Screen POSITIVE H (Not Detect) U Marijuana (THC) Screen Not Detected (Not Detect) Discharge Plan Discharge Clinical Impression: Auditory hallucination, Hallucination, visual Patient Disposition: Still a Patient Prescriptions: No Action chlorpromazine 100 mg tablet 100 mg PO BID risperidone 2 mg tablet 2 mg PO BID baclofen 10 mg tablet 10 mg PO BID olanzapine 15 mg tablet 15 mg PO BEDTIME divalproex 250 mg tablet extended release 24 hr 750 mg PO BEDTIME levothyroxine 50 mcg tablet 50 mcg PO DAILY Print Language: [place]
[2024-11-03 01:51] VITALS: BP 97/63; PULSE 72; RESP 16; TEMP 36.6; O2SAT 97
[2024-11-03 04:29] VITALS: BP 101/52; PULSE 66; RESP 16; TEMP 36.3; O2SAT 97
--- NOTE | 2024-11-03 08:55 | PC.NURSE ---
care team at bedside speaking with patient
[2024-11-03 09:13] VITALS: BP 100/55; PULSE 64; RESP 18; TEMP 36.8; O2SAT 98
--- NOTE | 2024-11-03 11:03 | PC.NURSE ---
pt continuos on sleeping, respirations even and unlabored, sitter in place
--- NOTE | 2024-11-03 12:23 | PHA.MEDREC ---
Pharmacy Consult ? Medication Reconciliation Pharmacy has reviewed the medication reconciliation completed by nursing. Confirmed with patient, he is taking Divalproex 500mg TID, Levothyroxine 75 mcg daily, risperidone 2mg daily. Updated the med rec to reflect these changes, contacted provider to get these order updated.
--- NOTE | 2024-11-03 13:24 | PC.NURSE ---
patient refusing labs at this time. patient states his parents doesn't want him to give labs. no other reason.
[2024-11-03] MEDS: risperiDONE 2 MG TABLET PO (13:48)
[2024-11-03 14:00] VITALS: BP 100/55; PULSE 64; RESP 18; TEMP 36.8; O2SAT 98
[2024-11-03] MEDS: Divalproex Sodium 500 MG TABLET.DR PO ×2 (15:43→20:20)
[2024-11-03] MEDS: Lithium Carbonate ER 450 MG TABLET.ER 900 MG PO (20:20)
[2024-11-03] MEDS: OLANZapine 7.5 MG TABLET 15 MG PO (20:20)
--- NOTE | 2024-11-03 20:22 | PC.NURSE ---
patient presented to the nursing station asking for Milk, meds administered without incident. Patient calm and cooperative, returned to room.
--- NOTE | 2024-11-04 06:30 | PC.NURSE ---
patient sleeping at this time, even and unlabored respirations noted. chest rise and chest fall noted as well. RR 19
[2024-11-04 06:31] VITALS: RESP 16
[2024-11-04 06:33] VITALS: RESP 19
[2024-11-04] MEDS: Omeprazole 20 MG CAPSULE.DR PO (06:37)
--- NOTE | 2024-11-04 06:37 | MHC.EDTECH ---
pt refusing VS. told t/w I am trying to sleep. rn aware.
[2024-11-04] MEDS: Levothyroxine Sodium 75 MCG TABLET PO (06:39)
--- NOTE | 2024-11-04 10:09 | PC.NURSE ---
Assumed care of patient at 0645, patient appears to be sleeping, respirations even and unlabored, no apparent distress noted. Per previous RN, patient has been agitated. plan to allow patient to sleep and administer medicaitons when patient wakes up on his own
[2024-11-04] MEDS: Nicotine Polacrilex 2 MG GUM 4 MG BUCCAL (14:34)
[2024-11-04] MEDS: Divalproex Sodium 500 MG TABLET.DR PO (14:34)
[2024-11-04 14:40] VITALS: PULSE 98; RESP 18; TEMP 36.5; O2SAT 98
[2024-11-04] MEDS: OLANZapine 5 MG TABLET PO (15:30)
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
[2024-11-04 20:00] VITALS: BP 128/83; PULSE 89; RESP 16; TEMP 36.2; O2SAT 97
[2024-11-04] MEDS: Divalproex Sodium 500 MG TABLET.DR 1000 MG PO (21:05)
[2024-11-04] MEDS: Lithium Carbonate ER 450 MG TABLET.ER 900 MG PO (21:05)
[2024-11-04] MEDS: OLANZapine 7.5 MG TABLET 15 MG PO (21:05)
--- NOTE | 2024-11-05 03:39 | PC.NURSE ---
Patient irritable and pacing during the shift. He was guarded on approach and denied any psychiatric symptoms. He was unable to sign any legals due to his mental status.
[2024-11-05] MEDS: Omeprazole 20 MG CAPSULE.DR PO (06:22)
[2024-11-05] MEDS: Levothyroxine Sodium 75 MCG TABLET PO (06:22)
[2024-11-05 07:59] VITALS: BP 113/52; PULSE 61; RESP 18; TEMP 36.8; O2SAT 97
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
[2024-11-05] MEDS: OLANZapine 7.5 MG TABLET 15 MG PO ×2 (09:17→20:47)
[2024-11-05] MEDS: Divalproex Sodium 500 MG TABLET.DR 1500 MG PO (20:47)
[2024-11-05] MEDS: Lithium Carbonate ER 450 MG TABLET.ER 900 MG PO (20:47)
[2024-11-06] MEDS: Levothyroxine Sodium 75 MCG TABLET PO (06:17)
[2024-11-06] MEDS: Omeprazole 20 MG CAPSULE.DR PO (06:17)
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
[2024-11-06] MEDS: OLANZapine 7.5 MG TABLET 15 MG PO ×2 (11:19→20:32)
[2024-11-06 20:00] VITALS: BP 131/78; PULSE 78; TEMP 36.3; O2SAT 98
[2024-11-06] MEDS: Lithium Carbonate ER 450 MG TABLET.ER 900 MG PO (20:33)
[2024-11-06] MEDS: Divalproex Sodium 500 MG TABLET.DR 1500 MG PO (20:33)
[2024-11-06] MEDS: Nicotine Polacrilex 2 MG GUM 4 MG BUCCAL (23:16)
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
[2024-11-07] MEDS: Omeprazole 20 MG CAPSULE.DR PO (08:58)
[2024-11-07] MEDS: Levothyroxine Sodium 75 MCG TABLET PO (08:58)
[2024-11-07] MEDS: OLANZapine 7.5 MG TABLET 15 MG PO ×2 (08:58→20:36)
[2024-11-07] MEDS: Nicotine Polacrilex 2 MG GUM 4 MG BUCCAL (18:18)
[2024-11-07 20:00] VITALS: RESP 18
[2024-11-07] MEDS: Divalproex Sodium 500 MG TABLET.DR 1500 MG PO (20:36)
[2024-11-07] MEDS: Lithium Carbonate ER 450 MG TABLET.ER 900 MG PO (20:37)
[2024-11-08] MEDS: Levothyroxine Sodium 75 MCG TABLET PO (06:53)
[2024-11-08 08:00] VITALS: RESP 16
[2024-11-08] MEDS: Omeprazole 20 MG CAPSULE.DR PO (09:07)
[2024-11-08] MEDS: OLANZapine 7.5 MG TABLET 15 MG PO ×2 (09:07→20:46)
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
[2024-11-08] MEDS: Lithium Carbonate ER 450 MG TABLET.ER 900 MG PO (20:47)
[2024-11-08] MEDS: Divalproex Sodium 500 MG TABLET.DR 1500 MG PO (20:47)
[2024-11-08] MEDS: Nicotine Polacrilex 2 MG GUM 4 MG BUCCAL (20:48)
--- NOTE | 2024-11-09 03:18 | PC.NURSE ---
Patient had signed a 3 day notice 11/06/24 which will be up Saturday11/11/24. , SW and UR notified.
[2024-11-09] MEDS: Levothyroxine Sodium 75 MCG TABLET PO (06:48)
[2024-11-09] MEDS: Omeprazole 20 MG CAPSULE.DR PO (06:55)
[2024-11-09 08:07] VITALS: BP 103/65; PULSE 63; RESP 18; TEMP 37.1; O2SAT 98
[2024-11-09] MEDS: OLANZapine 7.5 MG TABLET 15 MG PO ×2 (08:42→21:12)
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
[2024-11-09 20:00] VITALS: BP 98/61; PULSE 67; RESP 16; TEMP 36.9; O2SAT 97
[2024-11-09] MEDS: Divalproex Sodium 500 MG TABLET.DR 1500 MG PO (21:12)
[2024-11-09] MEDS: Lithium Carbonate ER 450 MG TABLET.ER 900 MG PO (21:13)
[2024-11-10] MEDS: OLANZapine 7.5 MG TABLET 15 MG PO ×2 (08:58→20:49)
[2024-11-10] MEDS: Levothyroxine Sodium 75 MCG TABLET PO (08:58)
[2024-11-10] MEDS: Omeprazole 20 MG CAPSULE.DR PO (08:59)
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
[2024-11-10 20:00] VITALS: PULSE 70; RESP 18; TEMP 36.9
[2024-11-10] MEDS: Divalproex Sodium 500 MG TABLET.DR 1500 MG PO (20:47)
[2024-11-10] MEDS: Lithium Carbonate ER 450 MG TABLET.ER 900 MG PO (20:47)
[2024-11-11] MEDS: Levothyroxine Sodium 75 MCG TABLET PO (07:02)
[2024-11-11] MEDS: Omeprazole 20 MG CAPSULE.DR PO (07:02)
[2024-11-11] MEDS: OLANZapine 7.5 MG TABLET 15 MG PO (08:02)
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
[2024-11-11] MEDS: Naloxone HCl Nasal TAKE HOME 4 MG SPRAY 8 MG NOSTRILALT (11:18)
== END 2024-11-11 11:40 | disposition home or self-care (01) | DRG 885 ==
LOC: HO.ED 11-03 12:39 → HO.PM5 11-04 13:45
PROVIDERS: Admitting Provider Psychiatry & Neurology Psychiatry; Emergency Provider Emergency Medicine; Visit Provider Psychiatry & Neurology Psychiatry
DX: F25.9 Schizoaffective disorder, unspecified (principal); F14.10 Cocaine abuse, uncomplicated; F17.210 Nicotine dependence, cigarettes, uncomplicated; Z71.6 Tobacco abuse counseling; Z91.148 Patient's other noncompliance with medication regimen for other reason; Z79.899 Other long term (current) drug therapy
CPT/HCPCS: 80307; 99285; S9485

== ENCOUNTER → 2024-11-04 13:35 | Outpatient (BNV) | payer MEDICARE, MEDICAID, SELFPAY | PROVIDERS: Admitting Provider Psychiatry & Neurology Psychiatry; Emergency Provider Emergency Medicine; Visit Provider Psychiatry & Neurology Psychiatry | DX: F25.0 Schizoaffective disorder, bipolar type (principal); F14.10 Cocaine abuse, uncomplicated | CPT/HCPCS: 90792 ==

== ENCOUNTER 2024-12-17 01:13 | Inpatient (IN) | payer MEDICARE, MEDICAID, SELFPAY ==
[2024-12-17 01:32] VITALS: BP 134/86; PULSE 90; RESP 18; TEMP 36.6; O2SAT 99; BMI 25.9
--- NOTE | 2024-12-17 01:47 | MHC.EDTECH ---
patient refused to get blood drawn, walked out of triage to waiting room.
--- NOTE | 2024-12-17 01:51 | MHC.EDTECH ---
pt refusing labs/urine at this time
--- NOTE | 2024-12-17 02:43 | ED_ITS ---
HPI - Psych General Chief Complaint: Psychiatric Symptoms Stated Complaint: medication refill Time Seen by Provider: 12/17/24 02:30 Source: patient Mode of arrival: ambulatory Limitations: no limitations History of Present Illness ED Provider: Dr. Genesis Blum HPI Narrative: Patient comes to the emergency room requesting a medication refill. , however, when I spoke to the patient, patient admits that he has been hearing voices, states that he feels scared. Patient states that he would like to be started on his psych medications which he has not been taking. Patient's seems to be a bit disorganized overall. Denies SI or HI. Related Data Home Medications ?Medication ?Instructions ?Recorded ?Confirmed atorvastatin 10 mg tablet 10 mg PO DAILY 12/17/24 12/17/24 benztropine 1 mg tablet 1 mg PO DAILY 12/17/24 12/17/24 Previous Rx's ?Medication ?Instructions ?Recorded divalproex 500 mg tablet,delayed 1,500 mg (3 x 500 mg) PO BEDTIME 11/11/24 release 30 days #90 tabs levothyroxine 75 mcg tablet 75 mcg PO DAILY disorder of 11/11/24 thyroid gland 30 days #30 tabs lithium carbonate 450 mg 900 mg (2 x 450 mg) PO BEDTIME 11/11/24 tablet,extended release depressive disorder 30 days #60 tabs nicotine (polacrilex) 4 mg gum 4 mg buccal Q2H PRN nicotine 11/11/24 cravings 30 days #100 ea olanzapine 15 mg tablet 15 mg PO BID 30 days #60 tabs 11/11/24 pantoprazole 40 mg tablet,delayed 40 mg PO DAILY 30 days #30 tabs 11/11/24 release Allergies Allergy/AdvReac Type Severity Reaction Status Date / Time quetiapine [From SEROQUEL] Allergy Severe ANAPHYLAXIS Verified 12/17/24 01:35 haloperidol [HALOPERIDOL] Allergy Intermediate SWELLING Verified 12/17/24 01:35 trazodone Allergy Unknown Verified 12/17/24 01:35 Review of Systems Review of Systems: Constitutional : No Weight loss, No Fever, No Chills, No Night Sweats, No Fatigue, No Malaise ENT/Mouth : No Hearing loss, No Ear Pain, No Nasal Congestion, No Sinus Pain, No Hoarseness, No sore throat, No Rhinorrhea, No Swallowing Difficulty Eyes: No Eye Pain, No Swelling, No Redness, No Foreign Body, No Discharge, No Vision Changes Cardiovascular : No Chest Pain, No SOB, No Dyspnea on Exertion, No Orthopnea, No Edema, No Palpitations Respiratory : No Cough, No Sputum, No Wheezing, No Smoke Exposure, No Dyspnea Gastrointestinal : No Nausea, No Vomiting, No Diarrhea, No Constipation, No abdominal Pain, No Hematochezia, No Melena Genitourinary : no irregular bleeding, No Dysuria, No Urinary Frequency, No Hematuria, No Urinary Incontinence, No Urgency, No Flank Pain, No Urinary Flow Changes, No Hesitancy Musculoskeletal : No joint pain, No Myalgias, No Joint Swelling Skin : No Skin Lesions, No rash Neuro : No Weakness, No Numbness, No Paresthesias, No Loss of Consciousness, No Dizziness, No Headache Psych : No Anxiety/Panic, No Depression, Denies SI or HI, requesting to be started on medications, seems a bit disorganized Heme/Lymph: No Bruising, No Bleeding,No Lymphadenopathy Endocrine : No Polyuria, No Polydipsia, No Temperature Intolerance [facility] Past Medical History Medical History Hallucination, visual Substance abuse Violent behavior Schizoaffective disorder Social History Social History Household Members: Other Household Members Other:: Patient lives in a half-way in [place] with other residents. Housing: House Do you presently have visiting nurse or other home services: No Unable to assess alcohol history related to: Unknown Alcohol intake: never Patient Tobacco Use Status: Current someday Tobacco user Tobacco use type: Cigarette Cigarettes Per Day: 3 Years Smoked: unsure e-Cigarette/Vaping Use: Never Used Second Hand Smoke Exposure: No Substance Use Type: Crack/Cocaine Advance Directives: No Advance Directives Information Provided: Yes Do you have a plan to hurt others: No Plan service: No Sexual orientation: Straight/Heterosexual Physical Exam Vital Signs: Vital Signs: Last Vital Signs Temp 97.9 F 12/17/24 01:32 Pulse 90 12/17/24 01:32 Resp 18 12/17/24 01:32 BP 134/86 12/17/24 01:32 Pulse Ox 99 12/17/24 01:32 O2 Del Method Room Air 12/17/24 01:32 BMI result Body Mass Index 25.9 Const: Other: Appearance: Alert. Oriented X3. No acute distress. Eyes: Pupils equal, round and reactive to light. ENT: Pharynx normal. Neck: Normal inspection. Neck supple. No lymph nodes noted. No crepitus CVS: Normal heart rate and rhythm. Pulses normal. Normal S1 and S2 Respiratory: No respiratory distress. Breath sounds normal. No Wheezing. No r ales Abdomen: Soft and nontender. No rigidity. No distention. Skin: Skin warm and dry. Normal skin color. Normal skin turgor. Extremities: No lower extremity edema. No Lacerations. No Rash Neuro: Oriented X 3. No motor deficit. No sensory deficit. Moving all extremities. No slurred speech. CN 2 through 12 grossly intact Psych: calm, does answer questions but avoids any further conversation. Course Course Course Narrative: patient declining to get labs done or provide urine sample. Care team consult pending physician observation started at 02:49 Discharge Plan Discharge Clinical Impression: Schizoaffective disorder Patient Disposition: Still a Patient Prescriptions: No Action nicotine (polacrilex) 4 mg gum 4 mg buccal Q2H PRN (Reason: nicotine cravings) 30 Days Qty: 100 0RF divalproex 500 mg Tablet,Delayed Release (Dr/Ec) 1,500 mg PO BEDTIME 30 Days Qty: 90 0RF Rx Instructions: can either take all 3 tabs at bedtime or take 1 tab 3x a day lithium carbonate 450 mg tablet extended release 900 mg PO BEDTIME 30 Days Qty: 60 0RF levothyroxine 75 mcg tablet 75 mcg PO DAILY 30 Days Qty: 30 0RF pantoprazole 40 mg tablet,delayed release (DR/EC) 40 mg PO DAILY 30 Days Qty: 30 0RF olanzapine 15 mg tablet 15 mg PO BID 30 Days Qty: 60 0RF atorvastatin 10 mg tablet 10 mg PO DAILY benztropine 1 mg tablet 1 mg PO DAILY Print Language: Beninese
[2024-12-17 03:15] LABS: Amphetamine Screen Urine Not Detected (Not Detect); Barbiturates, Urine Not Detected (Not Detect); Benzodiazepines Screen Urine Not Detected (Not Detect); Buprenorphine Scr Not Detected (Not Detect); Cannabinoid Screen Urine POSITIVE (Not Detect); Cocaine Screen Urine POSITIVE (Not Detect); Fentanyl, urine Not Detected (Not Detect); Methadone Screen, Urine Not Detected (Not Detect); Opiate Screen Urine Not Detected (Not Detect); Oxycodone Screen Urine Not Detected (Not Detect); Phencyclidine Screen Urine Not Detected (Not Detect)
[2024-12-17 06:30] VITALS: BP 118/80; PULSE 83; RESP 18; O2SAT 97
--- NOTE | 2024-12-17 06:37 | PC.NURSE ---
Patient is currently in bed appears sleeping, slept intermittently, care consult ordered pending evaluation, refused blood work, will continue to monitor
--- NOTE | 2024-12-17 09:21 | MHC.EDTECH ---
this tech attempted to obtain ordered blood work. Per patient, unable to give blood because I was I'm in the and I'll get in trouble by the government. Rn aware patient refuisng labs.
[2024-12-17] MEDS: OLANZapine 7.5 MG TABLET 15 MG PO ×2 (09:33→20:41)
[2024-12-17] MEDS: Atorvastatin Calcium 10 MG TABLET PO (09:33)
[2024-12-17] MEDS: Omeprazole 20 MG CAPSULE.DR PO (09:33)
[2024-12-17] MEDS: Benztropine Mesylate 1 MG TABLET PO (09:33)
[2024-12-17 14:20] VITALS: BP 107/72; PULSE 87; RESP 18; TEMP 36.4; O2SAT 98
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
[2024-12-17 20:00] VITALS: BP 108/67; PULSE 62; RESP 16; TEMP 36.9; O2SAT 98
[2024-12-17] MEDS: Lithium Carbonate ER 450 MG TABLET.ER 900 MG PO (20:41)
[2024-12-17] MEDS: Divalproex Sodium 500 MG TABLET.DR 1500 MG PO (20:42)
[2024-12-18] MEDS: Levothyroxine Sodium 75 MCG TABLET PO (06:34)
[2024-12-18 07:35] VITALS: BP 101/60; PULSE 58; RESP 16; TEMP 36.4; O2SAT 97
[2024-12-18] MEDS: Omeprazole 20 MG CAPSULE.DR PO (08:20)
[2024-12-18] MEDS: Atorvastatin Calcium 10 MG TABLET PO (08:21)
[2024-12-18] MEDS: Benztropine Mesylate 1 MG TABLET PO (08:21)
[2024-12-18] MEDS: OLANZapine 7.5 MG TABLET 15 MG PO ×2 (08:23→20:37)
--- NOTE | 2024-12-18 09:28 | P.PNPSI_ITS ---
Subjective Subjective Date of Service: 12/18/24 Reason For Visit: crisis Subjective Notes: Conditional Voluntary Interim History: keeping to self. guarded. laying in bed most of shift. medication compliant. pt responding with one word answers to questions. Patient reports feeling alright today; pt stated, I don't need anything . denies SI/HI/VH/AH. Medication Compliance: Yes Side effects from medications: No Attending Groups: No Mental Status Exam Mental Status Exam Narrative: Pt is alert and oriented; behavior is cooperative, calm, guarded; dressed in casual attire; mood is described as alright ; eye contact appropriate; Speech is normal rate, volume and not pressured;unable to assess thought content d/t pt keeping assessment brief and responding with one word answers; denies SI/HI/VH/AH Diagnostics Vital Signs (24Hr): Vital Signs - 24 hr 12/17/24 14:20 12/17/24 20:00 12/18/24 07:35 Temperature 97.6 F 98.5 F 97.6 F Pulse Rate 87 62 58 Respiratory Rate 18 16 16 Blood Pressure 107/72 108/67 101/60 Pulse Oximetry 98 98 97 Oxygen Delivery Method Room Air Room Air Room Air BMI result Body Mass Index 25.9 Labs Labs: Laboratory Results - last 48 hr 12/17/24 02:56 Urine Opiates Screen Not Detected Ur Buprenorphine Scrn Not Detected Ur Oxycodone Screen Not Detected Urine Methadone Screen Not Detected Urine Fentanyl Screen Not Detected Ur Barbiturates Screen Not Detected Ur Phencyclidine Scrn Not Detected Ur Amphetamines Screen Not Detected U Benzodiazepines Scrn Not Detected Urine Cocaine Screen POSITIVE H U Marijuana (THC) Screen POSITIVE H Medications Medications Current Medications Acetaminophen (Acetaminophen 325 Mg Tablet) 650 mg PO Q6H PRN PRN Reason: Headache/Pain, Scale 1-10 Al Hydroxide/Mg Hydroxide (Magnesium Hydrox/Alum Hydrox 30 Ml Oral.Susp) 30 ml PO Q6H PRN PRN Reason: Heartburn/Nausea Atorvastatin Calcium (Atorvastatin Calcium 10 Mg Tablet) 10 mg PO DAILY [facility] Last Admin: 12/18/24 08:21 Dose: 10 mg Benztropine Mesylate (Benztropine Mesylate 1 Mg Tablet) 1 mg PO DAILY [facility] Last Admin: 12/18/24 08:21 Dose: 1 mg Divalproex Sodium (Divalproex Sodium 500 Mg Tablet.Dr) 1,500 mg PO BEDTIME [facility] Last Admin: 12/17/24 20:42 Dose: 1,500 mg Hydroxyzine HCl (Hydroxyzine Hcl 25 Mg Tablet) 25 mg PO Q6H PRN PRN Reason: mild anxiety Levothyroxine Sodium (Levothyroxine Sodium 75 Mcg Tablet) 75 mcg PO DAILY@0600 [facility] Last Admin: 12/18/24 06:34 Dose: 75 mcg [place] Carbonate ([place] Carbonate Er 450 Mg Tablet.Er) 900 mg PO BEDTIME [facility] Last Admin: 12/17/24 20:41 Dose: 900 mg Magnesium Hydroxide (Milk Of Magnesia 30 Ml Oral.Susp) 30 ml PO DAILY PRN PRN Reason: Constipation Nicotine (Nicotine 21 Mg Patch.Td24) 21 mg TRANSDERMA DAILY [facility] Last Admin: 12/18/24 08:25 Dose: Not Given Nicotine Polacrilex (Nicotine Polacrilex 2 Mg Gum) 4 mg BUCCAL Q2H PRN PRN Reason: nicotine cravings Olanzapine (Olanzapine 7.5 Mg Tablet) 15 mg PO BID [facility] Last Admin: 12/18/24 08:23 Dose: 15 mg Omeprazole (Omeprazole 20 Mg Capsule.) 20 mg PO DAILY@0630 [facility] Last Admin: 12/18/24 08:20 Dose: 20 mg Allergies Allergies Allergy/AdvReac Type Severity Reaction Status Date / Time quetiapine [From SEROQUEL] Allergy Severe ANAPHYLAXIS Verified 12/17/24 01:35 haloperidol [HALOPERIDOL] Allergy Intermediate SWELLING Verified 12/17/24 01:35 trazodone Allergy Unknown Verified 12/17/24 01:35 Assessment & Plan Assessment & Plan (1) Schizoaffective disorder: Status: Acute Code(s): F25.9 - Schizoaffective disorder, unspecified (2) Cocaine use disorder: Status: Acute Code(s): F14.10 - Cocaine abuse, uncomplicated Plan Patient is a 34-year-old male with history of schizoaffective disorder self presented to ER due to auditory hallucinations secondary to medication noncompliance. Plan: CV 15 minute safety checks Continue home medications Build therapeutic rapport Encourage groups Obtain collateral Discharge planning 12/18: keeping to self. guarded. laying in bed most of shift. medication compliant. pt responding with one word answers to questions. Patient reports feeling alright today; pt stated, I don't need anything . denies SI/HI/VH/AH. continue current tx plan Reason for continued inpatient stay Substantial Risk for: med/psych decompensation Time Spent With Patient Time: Total time managing care of this patient today _10___ minutes.
[2024-12-18 19:35] VITALS: BP 115/70; PULSE 83; RESP 16; TEMP 36.6; O2SAT 97
[2024-12-18] MEDS: Lithium Carbonate ER 450 MG TABLET.ER 900 MG PO (20:37)
[2024-12-18] MEDS: Divalproex Sodium 500 MG TABLET.DR 1500 MG PO (20:37)
--- NOTE | 2024-12-19 09:01 | P.PNPSI_ITS ---
Subjective Subjective Date of Service: 12/19/24 Reason For Visit: crisis Subjective Notes: 3 Day Interim History: keeping to self. guarded. medication compliant. 3 day up on 12/22/24. continues guarded; per nursing, pt became agitated last night and was responding to internal stimuli. During assessment, pt stated he did not want to talk about why he was upset last evening; pt stated, I don't want to talk about it. I'm not upset anymore. I'm fine . denies SI/HI/VH/AH. was not observed responding to internal stimuli during assessment. sleeping most of the morning. Medication Compliance: Yes Side effects from medications: No Attending Groups: No Mental Status Exam Mental Status Exam Narrative: Pt is alert and oriented; behavior is cooperative, calm, guarded; dressed in casual attire; mood is described as fine ; eye contact appropriate; Speech is normal rate, volume and not pressured; organized, focused on discharge; denies SI/HI/VH/AH Diagnostics Vital Signs (24Hr): Vital Signs - 24 hr 12/18/24 19:35 Temperature 97.8 F Pulse Rate 83 Respiratory Rate 16 Blood Pressure 115/70 Pulse Oximetry 97 Oxygen Delivery Method Room Air BMI result Body Mass Index 25.9 Medications Medications Current Medications Acetaminophen (Acetaminophen 325 Mg Tablet) 650 mg PO Q6H PRN PRN Reason: Headache/Pain, Scale 1-10 Al Hydroxide/Mg Hydroxide (Magnesium Hydrox/Alum Hydrox 30 Ml Oral.Susp) 30 ml PO Q6H PRN PRN Reason: Heartburn/Nausea Atorvastatin Calcium (Atorvastatin Calcium 10 Mg Tablet) 10 mg PO DAILY [facility] Last Admin: 12/18/24 08:21 Dose: 10 mg Benztropine Mesylate (Benztropine Mesylate 1 Mg Tablet) 1 mg PO DAILY [facility] Last Admin: 12/18/24 08:21 Dose: 1 mg Divalproex Sodium (Divalproex Sodium 500 Mg Tablet.) 1,500 mg PO BEDTIME [facility] Last Admin: 12/18/24 20:37 Dose: 1,500 mg Hydroxyzine HCl (Hydroxyzine Hcl 25 Mg Tablet) 25 mg PO Q6H PRN PRN Reason: mild anxiety Levothyroxine Sodium (Levothyroxine Sodium 75 Mcg Tablet) 75 mcg PO DAILY@0600 [facility] Last Admin: 12/18/24 06:34 Dose: 75 mcg [place] Carbonate ([place] Carbonate Er 450 Mg Tablet.Er) 900 mg PO BEDTIME [facility] Last Admin: 12/18/24 20:37 Dose: 900 mg Magnesium Hydroxide (Milk Of Magnesia 30 Ml Oral.Susp) 30 ml PO DAILY PRN PRN Reason: Constipation Nicotine (Nicotine 21 Mg Patch.Td24) 21 mg TRANSDERMA DAILY [facility] Last Admin: 12/18/24 08:25 Dose: Not Given Nicotine Polacrilex (Nicotine Polacrilex 2 Mg Gum) 4 mg BUCCAL Q2H PRN PRN Reason: nicotine cravings Olanzapine (Olanzapine 7.5 Mg Tablet) 15 mg PO BID [facility] Last Admin: 12/18/24 20:37 Dose: 15 mg Omeprazole (Omeprazole 20 Mg Capsule.Dr) 20 mg PO DAILY@0630 [facility] Last Admin: 12/18/24 08:20 Dose: 20 mg Allergies Allergies Allergy/AdvReac Type Severity Reaction Status Date / Time quetiapine [From SEROQUEL] Allergy Severe ANAPHYLAXIS Verified 12/17/24 01:35 haloperidol [HALOPERIDOL] Allergy Intermediate SWELLING Verified 12/17/24 01:35 trazodone Allergy Unknown Verified 12/17/24 01:35 Assessment & Plan Assessment & Plan (1) Schizoaffective disorder: Status: Acute Code(s): F25.9 - Schizoaffective disorder, unspecified (2) Cocaine use disorder: Status: Acute Code(s): F14.10 - Cocaine abuse, uncomplicated Plan Patient is a 34-year-old male with history of schizoaffective disorder self presented to ER due to auditory hallucinations secondary to medication noncompliance. Plan: CV 15 minute safety checks Continue home medications Build therapeutic rapport Encourage groups Obtain collateral Discharge planning 12/18: keeping to self. guarded. laying in bed most of shift. medication compliant. pt responding with one word answers to questions. Patient reports feeling alright today; pt stated, I don't need anything . denies SI/HI/VH/AH. continue current tx plan 12/19: keeping to self. guarded. medication compliant. 3 day up on 12/22/24. continues guarded; per nursing, pt became agitated last night and was responding to internal stimuli. During assessment, pt stated he did not want to talk about why he was upset last evening; pt stated, I don't want to talk about it. I'm not upset anymore. I'm fine . denies SI/HI/VH/AH. was not observed responding to internal stimuli during assessment. sleeping most of the morning. continue current tx plan. Reason for continued inpatient stay Substantial Risk for: med/psych decompensation Time Spent With Patient Time: Total time managing care of this patient today _10___ minutes.
[2024-12-19] MEDS: OLANZapine 7.5 MG TABLET 15 MG PO ×2 (09:06→20:34)
[2024-12-19] MEDS: Atorvastatin Calcium 10 MG TABLET PO (09:07)
[2024-12-19] MEDS: Omeprazole 20 MG CAPSULE.DR PO (09:07)
[2024-12-19] MEDS: Benztropine Mesylate 1 MG TABLET PO (09:07)
[2024-12-19] MEDS: Levothyroxine Sodium 75 MCG TABLET PO (09:07)
[2024-12-19 19:51] VITALS: BP 119/80; PULSE 100; RESP 16; TEMP 36.9; O2SAT 97
[2024-12-19] MEDS: Lithium Carbonate ER 450 MG TABLET.ER 900 MG PO (20:34)
[2024-12-19] MEDS: Divalproex Sodium 500 MG TABLET.DR 1500 MG PO (20:34)
[2024-12-19] MEDS: Nicotine Polacrilex 2 MG GUM 4 MG BUCCAL (20:36)
[2024-12-20] MEDS: Levothyroxine Sodium 75 MCG TABLET PO (06:41)
[2024-12-20 08:00] VITALS: RESP 16
[2024-12-20] MEDS: Omeprazole 20 MG CAPSULE.DR PO (08:56)
[2024-12-20] MEDS: OLANZapine 7.5 MG TABLET 15 MG PO ×2 (08:56→20:48)
[2024-12-20] MEDS: Atorvastatin Calcium 10 MG TABLET PO (08:56)
[2024-12-20] MEDS: Benztropine Mesylate 1 MG TABLET PO (08:56)
--- NOTE | 2024-12-20 08:58 | HO.PSYCHPN ---
Subjective Subjective Date of Service: 12/20/24 Reason For Visit: crisis Subjective Notes: 3 Day Interim History: medication compliant. 3 day up on 12/22/24. Patient reports feeling good today; pt stated, I only came to the hospital to get my meds. I shouldn't be inpatient . denies SI/HI/VH/AH. discussed obtaining labs; pt states he does not want anyone to take my blood . Will continue to encourage. Medication Compliance: Yes Side effects from medications: No Attending Groups: No Mental Status Exam Mental Status Exam Narrative: Pt is alert and oriented; behavior is cooperative, calm; dressed in casual attire; mood is described as good ; eye contact appropriate; Speech is normal rate, volume and not pressured; organized, focused on discharge; denies SI/HI/VH/AH Diagnostics Vital Signs (24Hr): Vital Signs - 24 hr 12/19/24 19:51 Temperature 98.4 F Pulse Rate 100 Respiratory Rate 16 Blood Pressure 119/80 Pulse Oximetry 97 Oxygen Delivery Method Room Air BMI result Body Mass Index 25.9 Medications Medications Current Medications Acetaminophen (Acetaminophen 325 Mg Tablet) 650 mg PO Q6H PRN PRN Reason: Headache/Pain, Scale 1-10 Al Hydroxide/Mg Hydroxide (Magnesium Hydrox/Alum Hydrox 30 Ml Oral.Susp) 30 ml PO Q6H PRN PRN Reason: Heartburn/Nausea Atorvastatin Calcium (Atorvastatin Calcium 10 Mg Tablet) 10 mg PO DAILY REPLACED BY [facility] Last Admin: 12/19/24 09:07 Dose: 10 mg Benztropine Mesylate (Benztropine Mesylate 1 Mg Tablet) 1 mg PO DAILY REPLACED BY [facility] Last Admin: 12/19/24 09:07 Dose: 1 mg Divalproex Sodium (Divalproex Sodium 500 Mg Tablet.Dr) 1,500 mg PO BEDTIME REPLACED BY [facility] Last Admin: 12/19/24 20:34 Dose: 1,500 mg Hydroxyzine HCl (Hydroxyzine Hcl 25 Mg Tablet) 25 mg PO Q6H PRN PRN Reason: mild anxiety Levothyroxine Sodium (Levothyroxine Sodium 75 Mcg Tablet) 75 mcg PO DAILY@0600 REPLACED BY [facility] Last Admin: 12/20/24 06:41 Dose: 75 mcg [place] Carbonate ([place]vin Carbonate Er 450 Mg Tablet.Er) 900 mg PO BEDTIME REPLACED BY [facility] Last Admin: 12/19/24 20:34 Dose: 900 mg Magnesium Hydroxide (Milk Of Magnesia 30 Ml Oral.Susp) 30 ml PO DAILY PRN PRN Reason: Constipation Nicotine (Nicotine 21 Mg Patch.Td24) 21 mg TRANSDERMA DAILY REPLACED BY [facility] Last Admin: 12/19/24 09:08 Dose: Not Given Nicotine Polacrilex (Nicotine Polacrilex 2 Mg Gum) 4 mg BUCCAL Q2H PRN PRN Reason: nicotine cravings Last Admin: 12/19/24 20:36 Dose: 4 mg Olanzapine (Olanzapine 7.5 Mg Tablet) 15 mg PO BID REPLACED BY [facility] Last Admin: 12/19/24 20:34 Dose: 15 mg Omeprazole (Omeprazole 20 Mg Capsule.Dr) 20 mg PO DAILY@0630 REPLACED BY [facility] Last Admin: 12/19/24 09:07 Dose: 20 mg Allergies Allergies Allergy/AdvReac Type Severity Reaction Status Date / Time quetiapine [From SEROQUEL] Allergy Severe ANAPHYLAXIS Verified 12/17/24 01:35 haloperidol [HALOPERIDOL] Allergy Intermediate SWELLING Verified 12/17/24 01:35 trazodone Allergy Unknown Verified 12/17/24 01:35 Assessment & Plan Assessment & Plan (1) Schizoaffective disorder: Status: Acute Code(s): F25.9 - Schizoaffective disorder, unspecified (2) Cocaine use disorder: Status: Acute Code(s): F14.10 - Cocaine abuse, uncomplicated Plan Patient is a 34-year-old male with history of schizoaffective disorder self presented to ER due to auditory hallucinations secondary to medication noncompliance. Plan: CV 15 minute safety checks Continue home medications Build therapeutic rapport Encourage groups Obtain collateral Discharge planning 12/18: keeping to self. guarded. laying in bed most of shift. medication compliant. pt responding with one word answers to questions. Patient reports feeling alright today; pt stated, I don't need anything . denies SI/HI/VH/AH. continue current tx plan 12/19: keeping to self. guarded. medication compliant. 3 day up on 12/22/24. continues guarded; per nursing, pt became agitated last night and was responding to internal stimuli. During assessment, pt stated he did not want to talk about why he was upset last evening; pt stated, I don't want to talk about it. I'm not upset anymore. I'm fine . denies SI/HI/VH/AH. was not observed responding to internal stimuli during assessment. sleeping most of the morning. continue current tx plan. 12/20: medication compliant. 3 day up on 12/22/24. Patient reports feeling good today; pt stated, I only came to the hospital to get my meds. I shouldn't be inpatient . denies SI/HI/VH/AH. discussed obtaining labs; pt states he does not want anyone to take my blood . Will continue to encourage. Patient educated on: medication risk/benefits Reason for continued inpatient stay Substantial Risk for: med/psych decompensation Time Spent With Patient Time: Total time managing care of this patient today _20___ minutes.
[2024-12-20 20:00] VITALS: BP 112/61; PULSE 88; RESP 16; TEMP 36.9; O2SAT 94
[2024-12-20] MEDS: Nicotine Polacrilex 2 MG GUM 4 MG BUCCAL (20:14)
[2024-12-20] MEDS: Lithium Carbonate ER 450 MG TABLET.ER 900 MG PO (20:48)
[2024-12-20] MEDS: Divalproex Sodium 500 MG TABLET.DR 1500 MG PO (20:48)
[2024-12-21] MEDS: Levothyroxine Sodium 75 MCG TABLET PO (06:19)
[2024-12-21 08:00] VITALS: BP 97/53; PULSE 63; RESP 18; TEMP 36.4; O2SAT 97
[2024-12-21] MEDS: Benztropine Mesylate 1 MG TABLET PO (08:40)
[2024-12-21] MEDS: OLANZapine 7.5 MG TABLET 15 MG PO ×2 (08:40→20:00)
[2024-12-21] MEDS: Omeprazole 20 MG CAPSULE.DR PO (08:40)
[2024-12-21] MEDS: Atorvastatin Calcium 10 MG TABLET PO (08:40)
--- NOTE | 2024-12-21 14:28 | P.PNPSI_ITS ---
Subjective Subjective Date of Service: 12/21/24 Reason For Visit: crisis Subjective Notes: 3 Day Interim History: 3 day up on 12/22/24. calm. cooperative. Patient continues to report feeling good today; focused on returning home. denies SI/HI/VH/AH. Plan to discharge on 3 day notice. Medication Compliance: Yes Side effects from medications: No Attending Groups: No Mental Status Exam Mental Status Exam Narrative: Pt is alert and oriented; behavior is cooperative, calm; dressed in casual attire; mood is described as good ; eye contact appropriate; Speech is normal rate, volume and not pressured; organized, focused on discharge; denies SI/HI/VH/AH Diagnostics Vital Signs (24Hr): Vital Signs - 24 hr 12/20/24 20:00 12/21/24 08:00 Temperature 98.5 F 97.6 F Pulse Rate 88 63 Respiratory Rate 16 18 Blood Pressure 112/61 97/53 L Pulse Oximetry 94 97 Oxygen Delivery Method Room Air Room Air BMI result Body Mass Index 25.9 Medications Medications Current Medications Acetaminophen (Acetaminophen 325 Mg Tablet) 650 mg PO Q6H PRN PRN Reason: Headache/Pain, Scale 1-10 Al Hydroxide/Mg Hydroxide (Magnesium Hydrox/Alum Hydrox 30 Ml Oral.Susp) 30 ml PO Q6H PRN PRN Reason: Heartburn/Nausea Atorvastatin Calcium (Atorvastatin Calcium 10 Mg Tablet) 10 mg PO DAILY [facility] Last Admin: 12/21/24 08:40 Dose: 10 mg Benztropine Mesylate (Benztropine Mesylate 1 Mg Tablet) 1 mg PO DAILY [facility] Last Admin: 12/21/24 08:40 Dose: 1 mg Divalproex Sodium (Divalproex Sodium 500 Mg Tablet.Dr) 1,500 mg PO BEDTIME [facility] Last Admin: 12/20/24 20:48 Dose: 1,500 mg Hydroxyzine HCl (Hydroxyzine Hcl 25 Mg Tablet) 25 mg PO Q6H PRN PRN Reason: mild anxiety Levothyroxine Sodium (Levothyroxine Sodium 75 Mcg Tablet) 75 mcg PO DAILY@0600 [facility] Last Admin: 12/21/24 06:19 Dose: 75 mcg [place] Carbonate ([place] Carbonate Er 450 Mg Tablet.Er) 900 mg PO BEDTIME [facility] Last Admin: 12/20/24 20:48 Dose: 900 mg Magnesium Hydroxide (Milk Of Magnesia 30 Ml Oral.Susp) 30 ml PO DAILY PRN PRN Reason: Constipation Nicotine Polacrilex (Nicotine Polacrilex 2 Mg Gum) 4 mg BUCCAL Q2H PRN PRN Reason: nicotine cravings Last Admin: 12/20/24 20:14 Dose: 4 mg Olanzapine (Olanzapine 7.5 Mg Tablet) 15 mg PO BID [facility] Last Admin: 12/21/24 08:40 Dose: 15 mg Omeprazole (Omeprazole 20 Mg Capsule.Dr) 20 mg PO DAILY@0630 [facility] Last Admin: 12/21/24 08:40 Dose: 20 mg Allergies Allergies Allergy/AdvReac Type Severity Reaction Status Date / Time quetiapine [From SEROQUEL] Allergy Severe ANAPHYLAXIS Verified 12/17/24 01:35 haloperidol [HALOPERIDOL] Allergy Intermediate SWELLING Verified 12/17/24 01:35 trazodone Allergy Unknown Verified 12/17/24 01:35 Assessment & Plan Assessment & Plan (1) Schizoaffective disorder: Status: Acute Code(s): F25.9 - Schizoaffective disorder, unspecified (2) Cocaine use disorder: Status: Acute Code(s): F14.10 - Cocaine abuse, uncomplicated Plan Patient is a 34-year-old male with history of schizoaffective disorder self presented to ER due to auditory hallucinations secondary to medication noncompliance. Plan: CV 15 minute safety checks Continue home medications Build therapeutic rapport Encourage groups Obtain collateral Discharge planning 12/18: keeping to self. guarded. laying in bed most of shift. medication complia nt. pt responding with one word answers to questions. Patient reports feeling alright today; pt stated, I don't need anything . denies SI/HI/VH/AH. continue current tx plan 12/19: keeping to self. guarded. medication compliant. 3 day up on 12/22/24. continues guarded; per nursing, pt became agitated last night and was responding to internal stimuli. During assessment, pt stated he did not want to talk about why he was upset last evening; pt stated, I don't want to talk about it. I'm not upset anymore. I'm fine . denies SI/HI/VH/AH. was not observed responding to internal stimuli during assessment. sleeping most of the morning. continue current tx plan. 12/20: medication compliant. 3 day up on 12/22/24. Patient reports feeling good today; pt stated, I only came to the hospital to get my meds. I shouldn't be inpatient . denies SI/HI/VH/AH. discussed obtaining labs; pt states he does not want anyone to take my blood . Will continue to encourage. 12/21: 3 day up on 12/22/24. calm. cooperative. Patient continues to report feeling good today; focused on returning home. denies SI/HI/VH/AH. Plan to discharge on 3 day notice. Patient educated on: diagnosis and medication risk/benefits Reason for continued inpatient stay Substantial Risk for: med/psych decompensation Time Spent With Patient Time: Total time managing care of this patient today _10___ minutes.
[2024-12-21] MEDS: Nicotine Polacrilex 2 MG GUM 4 MG BUCCAL (19:54)
[2024-12-21 20:00] VITALS: BP 111/75; PULSE 86; RESP 16; TEMP 36.6; O2SAT 97
[2024-12-21] MEDS: Lithium Carbonate ER 450 MG TABLET.ER 900 MG PO (20:00)
[2024-12-21] MEDS: Divalproex Sodium 500 MG TABLET.DR 1500 MG PO (20:00)
[2024-12-22] MEDS: Levothyroxine Sodium 75 MCG TABLET PO (05:35)
[2024-12-22] MEDS: Nicotine Polacrilex 2 MG GUM 4 MG BUCCAL ×4 (05:35→21:19)
[2024-12-22] MEDS: Omeprazole 20 MG CAPSULE.DR PO (05:35)
[2024-12-22 07:36] VITALS: BP 119/69; PULSE 85; RESP 16; TEMP 36.4; O2SAT 98
[2024-12-22] MEDS: Benztropine Mesylate 1 MG TABLET PO (08:14)
[2024-12-22] MEDS: Atorvastatin Calcium 10 MG TABLET PO (08:14)
[2024-12-22] MEDS: OLANZapine 7.5 MG TABLET 15 MG PO ×2 (08:15→20:45)
--- NOTE | 2024-12-22 09:16 | P.PNPSI_ITS ---
Subjective Subjective Date of Service: 12/22/24 Reason For Visit: crisis Subjective Notes: 3 Day Interim History: 3 day up on 12/22/24. Active on unit. pacing unit hallway, listening to music with unit headphones. keeping to self. Calm. Patient continues to report feeling good ; pt reports he is looking forward to discharge and plans on returning to his long term. denies SI/HI/VH/AH. Patient plans on following up with his outpatient providers. Medication Compliance: Yes Side effects from medications: No Attending Groups: No Mental Status Exam Mental Status Exam Narrative: Pt is alert and oriented; behavior is cooperative, calm; dressed in casual attire; mood is described as good ; eye contact appropriate; Speech is normal rate, volume and not pressured; organized, focused on discharge; denies SI/HI/VH/AH Diagnostics Vital Signs (24Hr): Vital Signs - 24 hr 12/21/24 20:00 12/22/24 07:36 Temperature 98 F 97.6 F Pulse Rate 86 85 Respiratory Rate 16 16 Blood Pressure 111/75 119/69 Pulse Oximetry 97 98 Oxygen Delivery Method Room Air Room Air BMI result Body Mass Index 25.9 Medications Medications Current Medications Acetaminophen (Acetaminophen 325 Mg Tablet) 650 mg PO Q6H PRN PRN Reason: Headache/Pain, Scale 1-10 Al Hydroxide/Mg Hydroxide (Magnesium Hydrox/Alum Hydrox 30 Ml Oral.Susp) 30 ml PO Q6H PRN PRN Reason: Heartburn/Nausea Atorvastatin Calcium (Atorvastatin Calcium 10 Mg Tablet) 10 mg PO DAILY [facility] Last Admin: 12/22/24 08:14 Dose: 10 mg Benztropine Mesylate (Benztropine Mesylate 1 Mg Tablet) 1 mg PO DAILY [facility] Last Admin: 12/22/24 08:14 Dose: 1 mg Divalproex Sodium (Divalproex Sodium 500 Mg Tablet.Dr) 1,500 mg PO BEDTIME [facility] Last Admin: 12/21/24 20:00 Dose: 1,500 mg Hydroxyzine HCl (Hydroxyzine Hcl 25 Mg Tablet) 25 mg PO Q6H PRN PRN Reason: mild anxiety Levothyroxine Sodium (Levothyroxine Sodium 75 Mcg Tablet) 75 mcg PO DAILY@0600 [facility] Last Admin: 12/22/24 05:35 Dose: 75 mcg [place] Carbonate ([place] Carbonate Er 450 Mg Tablet.Er) 900 mg PO BEDTIME [facility] Last Admin: 12/21/24 20:00 Dose: 900 mg Magnesium Hydroxide (Milk Of Magnesia 30 Ml Oral.Susp) 30 ml PO DAILY PRN PRN Reason: Constipation Nicotine Polacrilex (Nicotine Polacrilex 2 Mg Gum) 4 mg BUCCAL Q2H PRN PRN Reason: nicotine cravings Last Admin: 12/22/24 08:52 Dose: 4 mg Olanzapine (Olanzapine 7.5 Mg Tablet) 15 mg PO BID [facility] Last Admin: 12/22/24 08:15 Dose: 15 mg Omeprazole (Omeprazole 20 Mg Capsule.Dr) 20 mg PO DAILY@0630 [facility] Last Admin: 12/22/24 05:35 Dose: 20 mg Allergies Allergies Allergy/AdvReac Type Severity Reaction Status Date / Time quetiapine [From SEROQUEL] Allergy Severe ANAPHYLAXIS Verified 12/17/24 01:35 haloperidol [HALOPERIDOL] Allergy Intermediate SWELLING Verified 12/17/24 01:35 trazodone Allergy Unknown Verified 12/17/24 01:35 Assessment & Plan Assessment & Plan (1) Schizoaffective disorder: Status: Acute Code(s): F25.9 - Schizoaffective disorder, unspecified (2) Cocaine use disorder: Status: Acute Code(s): F14.10 - Cocaine abuse, uncomplicated Plan Patient is a 34-year-old male with history of schizoaffective disorder self presented to ER due to auditory hallucinations secondary to medication noncompliance. Plan: CV 15 minute safety checks Continue home medications Build therapeutic rapport Encourage groups Obtain collateral Discharge planning 12/18: keeping to self. guarded. laying in bed most of shift. medication compliant. pt responding with one word answers to questions. Patient reports feeling alright today; pt stated, I don't need anything . denies SI/HI/VH/AH. continue current tx plan 12/19: keeping to self. guarded. medication compliant. 3 day up on 12/22/24. continues guarded; per nursing, pt became agitated last night and was responding to internal stimuli. During assessment, pt stated he did not want to talk about why he was upset last evening; pt stated, I don't want to talk about it. I'm not upset anymore. I'm fine . denies SI/HI/VH/AH. was not observed responding to internal stimuli during assessment. sleeping most of the morning. continue current tx plan. 12/20: medication compliant. 3 day up on 12/22/24. Patient reports feeling good today; pt stated, I only came to the hospital to get my meds. I shouldn't be inpatient . denies SI/HI/VH/AH. discussed obtaining labs; pt states he does not want anyone to take my blood . Will continue to encourage. 12/21: 3 day up on 12/22/24. calm. cooperative. Patient continues to report feeling good today; focused on returning home. denies SI/HI/VH/AH. Plan to discharge on 3 day notice. 12/22: 3 day up on 12/22/24. Active on unit. pacing unit hallway, listening to music with unit headphones. keeping to self. Calm. Patient continues to report feeling good ; pt reports he is looking forward to discharge and plans on returning to his long term. denies SI/HI/VH/AH. Patient plans on following up with his outpatient providers. Patient educated on: medication risk/benefits Reason for continued inpatient stay Substantial Risk for: stable for discharge Time Spent With Patient Time: Total time managing care of this patient today __20__ minutes.
[2024-12-22] MEDS: Lithium Carbonate ER 450 MG TABLET.ER 900 MG PO (20:44)
[2024-12-22] MEDS: Divalproex Sodium 500 MG TABLET.DR 1500 MG PO (20:45)
[2024-12-23] MEDS: Levothyroxine Sodium 75 MCG TABLET PO (06:07)
[2024-12-23] MEDS: Omeprazole 20 MG CAPSULE.DR PO (06:07)
[2024-12-23 07:37] VITALS: BP 85/46; PULSE 64; RESP 14; TEMP 36.4; O2SAT 96
[2024-12-23 07:54] VITALS: BP 100/58; PULSE 60
[2024-12-23] MEDS: Naloxone HCl Nasal TAKE HOME 4 MG SPRAY 8 MG NOSTRILALT (08:07)
--- NOTE | 2024-12-23 08:45 | PM.PSYDC ---
DS: Providers Provider Date of Service: 12/23/24 Date of admission: 12/17/24 13:34 Date of discharge: 12/23/24 Primary care physician: Unknown Physician Admitting clinician: Edith Morales Attending physician on admission: Enmanuel Mcdowell Attending physician on discharge: Enmanuel Mcdowell Discharging clinician: Edith Morales DS: Diagnosis Discharge Diagnosis (1) Schizoaffective disorder: Status: Acute (2) Cocaine use disorder: Status: Acute DS: Medications Discharge Medications Home Medications: Home Medications ?Medication ?Instructions ?Recorded ?Confirmed atorvastatin 10 mg tablet 10 mg PO DAILY 12/17/24 12/17/24 benztropine 1 mg tablet 1 mg PO DAILY 12/17/24 12/17/24 Previous Rx's ?Medication ?Instructions ?Recorded divalproex 500 mg tablet,delayed 1,500 mg (3 x 500 mg) PO BEDTIME 11/11/24 release 30 days #90 tabs levothyroxine 75 mcg tablet 75 mcg PO DAILY disorder of 11/11/24 thyroid gland 30 days #30 tabs lithium carbonate 450 mg 900 mg (2 x 450 mg) PO BEDTIME 11/11/24 tablet,extended release depressive disorder 30 days #60 tabs nicotine (polacrilex) 4 mg gum 4 mg buccal Q2H PRN nicotine 11/11/24 cravings 30 days #100 ea olanzapine 15 mg tablet 15 mg PO BID 30 days #60 tabs 11/11/24 pantoprazole 40 mg tablet,delayed 40 mg PO DAILY 30 days #30 tabs 11/11/24 release Mental Status Exam Mental Status Exam Narrative: Pt is alert and oriented; behavior is cooperative, calm; dressed in casual attire; mood is described as good ; eye contact appropriate; Speech is normal rate, volume and not pressured; organized, focused on discharge; denies SI/HI/VH/AH Data Data Completed and Pending Completed studies during hospitalization [Text1]: 12/17/24 02:56 Urine Opiates Screen Not Detected Ur Buprenorphine Scrn Not Detected Ur Oxycodone Screen Not Detected Urine Methadone Screen Not Detected Urine Fentanyl Screen Not Detected Ur Barbiturates Screen Not Detected Ur Phencyclidine Scrn Not Detected Ur Amphetamines Screen Not Detected U Benzodiazepines Scrn Not Detected Urine Cocaine Screen POSITIVE H U Marijuana (THC) Screen POSITIVE H DS: Summary Hospital Course Hospital Course: Patient is a 34-year-old male with history of schizoaffective disorder self presented to ER due to auditory hallucinations secondary to medication noncompliance. Per crisis report, patient self presented to ER reporting auditory hallucinations and was feeling scared . He reports he would like to be started on his medications as he has been medication noncompliant. Patient was recently discharged from on 11/11/24. history of multiple inpatient psychiatric hospitalizations. Patient was discharged from [facility] ER yesterday. denies SI/HI. Patient presented with paranoid delusions and stated, people in [place] do not want me taking medications. They want me to drink wine . He reported, [employer] [employer] and [employer] gangs in [place] are looking for him. history of paranoia and auditory hallucinations at baseline. Patient currently resides in [facility] in [place]. During admission assessment, patient presents irritable and guarded. Lying in bed. Declined to meet with T/W; patient stated, you know why I'm here. I just needed a dose of my medicine. You guys want to collect my insurance money . We will attempt to build rapport again tomorrow; we will continue home medications. Plan: CV 15 minute safety checks Continue home medications Build therapeutic rapport Encourage groups Obtain collateral Discharge planning keeping to self. guarded. laying in bed most of shift. medication compliant. pt responding with one word answers to questions. Patient reports feeling alright today; pt stated, I don't need anything . denies SI/HI/VH/AH. continue current tx plan keeping to self. guarded. medication compliant. 3 day up on 12/22/24. continues guarded; per nursing, pt became agitated last night and was responding to internal stimuli. During assessment, pt stated he did not want to talk about why he was upset last evening; pt stated, I don't want to talk about it. I'm not upset anymore. I'm fine . denies SI/HI/VH/AH. was not observed responding to internal stimuli during assessment. sleeping most of the morning. continue current tx plan. medication compliant. 3 day up on 12/22/24. Patient reports feeling good today; pt stated, I only came to the hospital to get my meds. I shouldn't be inpatient . denies SI/HI/VH/AH. discussed obtaining labs; pt states he does not want anyone to take my blood . Will continue to encourage. 3 day up on 12/22/24. calm. cooperative. Patient continues to report feeling good today; focused on returning home. denies SI/HI/VH/AH. Plan to discharge on 3 day notice. 3 day up on 12/22/24. Active on unit. pacing unit hallway, listening to music with unit headphones. keeping to self. Calm. Patient continues to report feeling good ; pt reports he is looking forward to discharge and plans on returning to his [facility]. denies SI/HI/VH/AH. Patient plans on following up with his outpatient providers. Status at Discharge Cognitive/behavioral status at discharge: Patient demonstrates good judgment in terms of wanting to pursue treatment. Patient has a safety plan that includes presenting to the closest ER or calling 911 if feeling unsafe. Functional status at discharge: independent ambulation Overall status at discharge: patient is back to baseline Time Spent with Patient Time attestation: Total time managing care of this patient today _20___ minutes. Time spent: Less than 30 minutes Discharge Plan Discharge Anticipated Discharge Date/Time: 12/23/24 10:00 Patient Disposition: Home, Self-Care Discharge Diagnosis: Schizoaffective d/o, cocaine use d/o Referrals: Rebecca Alva (Therapy) [Other] - 12/25/24 10:00 am (IN OFFICE APPOINTMENT) Dr. Sreekanth Odell (Psychiatry) [Other] - 01/04/25 10:00 am (IN OFFICE APPOINTMENT) [facility] [Provider Group] - 1 Week (12-23-24 [facility] was added to patients chart. Please call [phone] to schedule your follow up appt within 7-10 days of discharge.) Discharge Medications: Continued nicotine (polacrilex) 4 mg gum 4 mg buccal Q2H PRN (Reason: nicotine cravings) 30 Days Qty: 100 0RF divalproex 500 mg Tablet,Delayed Release (Dr/Ec) 1,500 mg PO BEDTIME 30 Days Qty: 90 0RF Rx Instructions: can either take all 3 tabs at bedtime or take 1 tab 3x a day lithium carbonate 450 mg tablet extended release 900 mg PO BEDTIME 30 Days Qty: 60 0RF levothyroxine 75 mcg tablet 75 mcg PO DAILY 30 Days Qty: 30 0RF pantoprazole 40 mg tablet,delayed release (DR/EC) 40 mg PO DAILY 30 Days Qty: 30 0RF olanzapine 15 mg tablet 15 mg PO BID 30 Days Qty: 60 0RF atorvastatin 10 mg tablet 10 mg PO DAILY benztropine 1 mg tablet 1 mg PO DAILY Discharge Orders: Discharge Order (Routine); Ordered 12/23/24 Ordered By: Edith Morales Diet: Regular diet Activity on Discharge: As tolerated Stand Alone Forms: Patient Portal Discharge page, Community Support Print Language: Yi Care Plan Goals: Maintain mood and safe behaviors Take medications as prescribed Continue to pursue sobriety Practice coping skills Continue with outpatient providers and reach out to them as needed Health Concerns: Mood stability and behaviors Sobriety Plan of Treatment: Follow up with your PCP, psychiatric provider and other outpatient providers regarding above concerns Take medications as prescribed Assessment: Patient demonstrates good judgment in terms of wanting to pursue treatment. Patient has a safety plan that includes presenting to the closest ER or calling 911 if feeling unsafe. Discharge Date/Time: 12/23/24 10:30
[2024-12-23] MEDS: Atorvastatin Calcium 10 MG TABLET PO (08:59)
[2024-12-23] MEDS: Benztropine Mesylate 1 MG TABLET PO (08:59)
[2024-12-23] MEDS: OLANZapine 7.5 MG TABLET 15 MG PO (09:00)
== END 2024-12-23 10:30 | disposition home or self-care (01) | DRG 885 ==
LOC: HO.ED 02:50 → HO.PADLT16 13:36
PROVIDERS: Admitting Provider Registered Nurse; Emergency Provider Emergency Medicine; Responsible Provider Registered Nurse; Visit Provider Psychiatry & Neurology Psychiatry
DX: F25.9 Schizoaffective disorder, unspecified (principal); F14.10 Cocaine abuse, uncomplicated; Z79.890 Hormone replacement therapy; Z79.899 Other long term (current) drug therapy
CPT/HCPCS: 80307; 99285; S9485

== ENCOUNTER → 2024-12-17 13:34 | Outpatient (BNV) | payer MEDICARE, MEDICAID, SELFPAY | PROVIDERS: Admitting Provider Registered Nurse; Emergency Provider Emergency Medicine; Visit Provider Registered Nurse | DX: F25.9 Schizoaffective disorder, unspecified (principal); F14.10 Cocaine abuse, uncomplicated | CPT/HCPCS: 90792 ==

== ENCOUNTER 2024-12-24 20:41 | Emergency (ER) | payer MEDICARE, MEDICAID, SELFPAY ==
[2024-12-24 20:48] VITALS: BP 108/89; PULSE 71; RESP 18; TEMP 36.2; O2SAT 97; BMI 26.4
--- NOTE | 2024-12-24 20:49 | ED.PSYCH ---
HPI - Psych General Chief Complaint: Psychiatric Symptoms Stated Complaint: crisis Time Seen by Provider: 12/24/24 20:53 Source: patient and old records reviewed Mode of arrival: ambulatory Limitations: no limitations History of Present Illness ED Provider: JAVIER SANTOS Narrative: 34 yo male with PMH of cocaine use disorder, schizoaffective here with c/o just leaving our inpatient unit yesterday from inpatient [facility] to [facility] he states he has no SI/HI. He needs different medications as he is hearing more voices and seeing things. He doesn't feel safe and states he needs to be adjusted. He has no medical complaints at this time. complaint: hallucinations Onset (ago): day(s) Duration: intermittent History of same: Yes Relieving factors: none Exacerbating factors: other Associated psychiatric symptoms: auditory hallucinations and visual hallucinations Associated symptoms: denies other symptoms Treatments prior to arrival: none Related Data Home Medications ?Medication ?Instructions ?Recorded ?Confirmed atorvastatin 10 mg tablet 10 mg PO DAILY 12/17/24 12/24/24 benztropine 1 mg tablet 1 mg PO DAILY 12/17/24 12/24/24 Previous Rx's ?Medication ?Instructions ?Recorded divalproex 500 mg tablet,delayed 1,500 mg (3 x 500 mg) PO BEDTIME 11/11/24 release 30 days #90 tabs levothyroxine 75 mcg tablet 75 mcg PO DAILY disorder of 11/11/24 thyroid gland 30 days #30 tabs lithium carbonate 450 mg 900 mg (2 x 450 mg) PO BEDTIME 11/11/24 tablet,extended release depressive disorder 30 days #60 tabs nicotine (polacrilex) 4 mg gum 4 mg buccal Q2H PRN nicotine 11/11/24 cravings 30 days #100 ea olanzapine 15 mg tablet 15 mg PO BID 30 days #60 tabs 11/11/24 pantoprazole 40 mg tablet,delayed 40 mg PO DAILY 30 days #30 tabs 11/11/24 release Allergies Allergy/AdvReac Type Severity Reaction Status Date / Time quetiapine [From SEROQUEL] Allergy Severe ANAPHYLAXIS Verified 12/24/24 20:50 haloperidol [HALOPERIDOL] Allergy Intermediate SWELLING Verified 12/24/24 20:50 trazodone Allergy Unknown Verified 12/24/24 20:50 Review of Systems Review of Systems: Constitutional : No Fever, No Chills ENT/Mouth : No Ear Pain, No Nasal Congestion, No sore throat Eyes: No Eye Pain, No Swelling, No Redness Cardiovascular : No Chest Pain, No SOB Respiratory : No Cough, No Sputum, No Dyspnea Gastrointestinal : No Nausea, No Vomiting, No Diarrhea, No Hematochezia, No Melena Genitourinary : No Dysuria, No Urinary Frequency, No Hematuria Musculoskeletal : No Myalgias Skin : No Skin Lesions, No rash Neuro : No Weakness, No Numbness, No Paresthesias, No Dizziness, No Headache Psych : positive Anxiety, positive Depression, no SI/HI, pos AH/VH All other systems reviewed and are negative [facility] Past Medical History Attestation statement: The following information was validated with the patient. Source: old records reviewed Medical History Hallucination, visual Substance abuse Violent behavior Schizoaffective disorder Social History Social History Household Members: None Household Members Other:: Patient lives in a [facility] in [place] with other residents. Housing: Other Housing Other:: INTERMEDIATE Do you presently have visiting nurse or other home services: No Unable to assess alcohol history related to: Unknown Alcohol intake: never Patient Tobacco Use Status: Refuse Tobacco use screen Tobacco use type: Cigarette Cigarettes Per Day: 3 Years Smoked: unsure e-Cigarette/Vaping Use: Never Used Second Hand Smoke Exposure: No Substance Use Type: Crack/Cocaine and Marijuana Advance Directives: No Advance Directives Information Provided: No Do you have a plan to hurt others: No Plan service: No Sexual orientation: Straight/Heterosexual Physical Exam Vital Signs: Vital Signs: Last Vital Signs Temp 97.2 F 12/24/24 20:48 Pulse 71 12/24/24 20:48 Resp 18 12/24/24 20:48 BP 108/89 12/24/24 20:48 Pulse Ox 97 12/24/24 20:48 O2 Del Method Room Air 12/24/24 20:48 BMI result Body Mass Index 26.4 Appearance: Alert. Oriented X3. No acute distress. Eyes: Pupils equal, round and reactive to light. ENT: Pharynx normal. Neck: Normal inspection. Neck supple. CVS: Normal heart rate and rhythm. Pulses normal. Respiratory: No respiratory distress. Breath sounds normal. Abdomen: Soft and non-tender. Skin: Skin warm and dry. Normal skin color. Normal skin turgor. Extremities: No lower extremity edema. Neuro: Oriented X 3. No motor deficit. No sensory deficit. CN2-12 intact Course Course Course Narrative: This is an RME: Additional HPI, ROS, PE not included below will be deferred to primary provider. RME assessment and note performed by: Sandy Carreon PA-C This is a [id number] who presents to the ER with complaints of auditory and visual hallucinations. Pt was admitted on 12/17 - 12/23 psychiatrically for pain. Reporting he has been taking his meds but still has these symptoms. Plan: Labs, UA, crisis Medical Decision Making Medical Decision Making [facility] Narrative: 34 yo male with PMH of cocaine use disorder, schizoaffective here with c/o AH/VH no SI/HI states he needs better medications and is not safe at [facility] - labs, CARE team consult Differential Diagnosis Differential Diagnoses: The differential diagnosis associated with the presentation includes schizoaffective disorder Admission/Observation Consideration of admission/observation: Escalation of care including admission/observation considered physician observation started at 1115pm pending CARE team Consult Healthcare Provider Management of the patient was discussed with: Behavioral Health Provider Lab Data [facility] Lab Attestation statement: I reviewed the patient's lab results. CBC/BMP pending still Labs: Lab Results 12/24/24 Range/Units 21:08 Urine Color Yellow Urine Appearance Clear Urine pH 6.5 (5.0-9.0) Ur Specific [place] 1.025 (1.005-1.025) Urine Protein Negative (Neg-Trace) mg/dL Urine Glucose (UA) Negative (Negative) mg/dL Urine Ketones Negative (Negative) mg/dL Urine Blood Negative (Negative) Urine Nitrite Negative (Negative) Ur Leukocyte Esterase Negative (Negative) Urine Opiates Screen Not Detected (Not Detect) Ur Buprenorphine Scrn Not Detected (Not Detect) ng/mL Ur Oxycodone Screen Not Detected (Not Detect) ng/mL Urine Methadone Screen Not Detected (Not Detect) ng/mL Urine Fentanyl Screen POSITIVE H (Not Detect) Ur Barbiturates Screen Not Detected (Not Detect) Ur Phencyclidine Scrn Not Detected (Not Detect) Ur Amphetamines Screen Not Detected (Not Detect) U Benzodiazepines Scrn Not Detected (Not Detect) Urine Cocaine Screen POSITIVE H (Not Detect) U Marijuana (THC) Screen POSITIVE H (Not Detect) External Record Review External record reviewed: Inpatient record and Outpatient record Discharge Plan Discharge Clinical Impression: Schizoaffective disorder Patient Disposition: Still a Patient Prescriptions: No Action nicotine (polacrilex) 4 mg gum 4 mg buccal Q2H PRN (Reason: nicotine cravings) 30 Days Qty: 100 0RF divalproex 500 mg Tablet,Delayed Release (Dr/Ec) 1,500 mg PO BEDTIME 30 Days Qty: 90 0RF Rx Instructions: can either take all 3 tabs at bedtime or take 1 tab 3x a day lithium carbonate 450 mg tablet extended release 900 mg PO BEDTIME 30 Days Qty: 60 0RF levothyroxine 75 mcg tablet 75 mcg PO DAILY 30 Days Qty: 30 0RF pantoprazole 40 mg tablet,delayed release (DR/EC) 40 mg PO DAILY 30 Days Qty: 30 0RF olanzapine 15 mg tablet 15 mg PO BID 30 Days Qty: 60 0RF atorvastatin 10 mg tablet 10 mg PO DAILY benztropine 1 mg tablet 1 mg PO DAILY Print Language: Andorran
--- NOTE | 2024-12-24 21:27 | MHC.EDTECH ---
PT REFUSING BLOODWORK. 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 RN AWARE.
[2024-12-24 21:28] LABS: Appearance Urine Clear; Color Urine Yellow; Glucose Urine UA Negative (Negative); Leukocyte Esterase Urine Negative (Negative); Nitrite Urine Negative (Negative); PH 6.5 (5.0-9.0); Specific Gravity - Urine 1.025 (1.005-1.025); Urine Blood Negative (Negative); Urine Ketones Negative (Negative); Urine Protein Negative (Neg-Trace)
[2024-12-24 21:38] LABS: Amphetamine Screen Urine Not Detected (Not Detect); Barbiturates, Urine Not Detected (Not Detect); Benzodiazepines Screen Urine Not Detected (Not Detect); Buprenorphine Scr Not Detected (Not Detect); Cannabinoid Screen Urine POSITIVE (Not Detect); Cocaine Screen Urine POSITIVE (Not Detect); Fentanyl, urine POSITIVE (Not Detect); Methadone Screen, Urine Not Detected (Not Detect); Opiate Screen Urine Not Detected (Not Detect); Oxycodone Screen Urine Not Detected (Not Detect); Phencyclidine Screen Urine Not Detected (Not Detect)
--- NOTE | 2024-12-25 02:53 | MHC.EDTECH ---
pt refusing lab work.
--- NOTE | 2024-12-25 05:11 | PC.NURSE ---
Patient slept through the night, no distress observed/reported, med rec completed/pending provider's approval, refused blood work, care consult ordered, pending evaluation, will continue to monitor
--- NOTE | 2024-12-25 07:45 | PHA.MEDREC ---
Addendum entered by Deirdre Mariscal RPh 12/25/24 07:49: Reviewed by [facility] Original Note: Pharmacy Consult ? Medication Reconciliation Pharmacy reviewed med rec done by nursing. Claims match.
--- NOTE | 2024-12-25 07:56 | PC.NURSE ---
Pt has been sleeping. Chest rise noted. NAD.
--- NOTE | 2024-12-25 08:14 | PC.NURSE ---
Awake. Reports A/V hallucinations. Denies Command hallucinations. Has been calm. Is still refusing labs and states i'm in the so we don't do that .
[2024-12-25 08:20] VITALS: BP 92/58; PULSE 67; RESP 18; TEMP 36.8; O2SAT 97
--- NOTE | 2024-12-25 09:04 | PC.NURSE ---
Showered. ambulatory in department calm.
[2024-12-25] MEDS: Benztropine Mesylate 1 MG TABLET PO (11:15)
[2024-12-25] MEDS: OLANZapine 7.5 MG TABLET 15 MG PO (11:15)
--- NOTE | 2024-12-25 14:23 | MHC.CARE ---
Called [facility], senior care # listed in the assessment, phone rang, no apparent means of leaving a message.
[2024-12-25 14:52] VITALS: BP 92/58; PULSE 67; RESP 18; TEMP 36.8; O2SAT 97
== END 2024-12-25 14:54 | disposition home or self-care (01) ==
PROVIDERS: Physician Assistant Medical; Emergency Provider Emergency Medicine
DX: F25.9 Schizoaffective disorder, unspecified (principal); F19.10 Other psychoactive substance abuse, uncomplicated; Z79.899 Other long term (current) drug therapy
CPT/HCPCS: 80307; 81003; 99285; S9485

== ENCOUNTER 2025-01-02 02:08 | Emergency (ER) | payer MEDICARE, MEDICAID, SELFPAY ==
[2025-01-02 02:10] VITALS: BP 120/69; PULSE 90; RESP 17; TEMP 36.9; O2SAT 99; BMI 26.3
--- NOTE | 2025-01-02 02:25 | PC.NURSE ---
patient reported he was at [facility] enter this am, reported that he didnt want to do labs at this time.
--- NOTE | 2025-01-02 02:29 | MHC.EDTECH ---
pt refusing lab work. says it would hinder his career. rn aware
--- NOTE | 2025-01-02 03:48 | ED_ITS ---
HPI - General Adult General Chief complaint: Psychiatric Symptoms Stated complaint: hearing voices Time Seen by Provider: 01/02/25 04:01 Source: patient Limitations: no limitations History of Present Illness ED Provider: Tracey Arizmendi PA-C HPI narrative: 34-year-old male with a history of cocaine use disorder, ongoing marijuana dependence and schizoaffective, who presents with auditory hallucinations. Patient states he is ?hearing pupil crying?. Patient states he is feeling paranoid and anxious, that he ?does not feel safe around certain people?. Patient was currently refusing labs, when I ask him why, he states ?if I give my blood the spirits will get mad at me?. He has been having these symptoms for months. He admits to drinking alcohol overnight to try and ?make it better?. Denies SI or HI. Related Data Home Medications ?Medication ?Instructions ?Recorded ?Confirmed atorvastatin 10 mg tablet 10 mg PO DAILY 12/17/24 12/24/24 benztropine 1 mg tablet 1 mg PO DAILY 12/17/24 12/24/24 levothyroxine 75 mcg tablet 75 mcg PO DAILY@0600 disorder of 12/25/24 12/25/24 thyroid gland pantoprazole 40 mg tablet,delayed 40 mg PO DAILY@0630 12/25/24 12/25/24 release Previous Rx's ?Medication ?Instructions ?Recorded divalproex 500 mg tablet,delayed 1,500 mg (3 x 500 mg) PO BEDTIME 11/11/24 release 30 days #90 tabs lithium carbonate 450 mg 900 mg (2 x 450 mg) PO BEDTIME 11/11/24 tablet,extended release depressive disorder 30 days #60 tabs nicotine (polacrilex) 4 mg gum 4 mg buccal Q2H PRN nicotine 11/11/24 cravings 30 days #100 ea olanzapine 15 mg tablet 15 mg PO BID 30 days #60 tabs 11/11/24 Allergies Allergy/AdvReac Type Severity Reaction Status Date / Time quetiapine [From SEROQUEL] Allergy Severe ANAPHYLAXIS Verified 01/02/25 02:12 haloperidol [HALOPERIDOL] Allergy Intermediate SWELLING Verified 01/02/25 02:12 trazodone Allergy Unknown Verified 01/02/25 02:12 Review of Systems Review of Systems: Yes all other systems are reviewed and are negative Constitutional: Constitutional: Denies fatigue and Denies fever(s) Cardiovascular: Cardiovascular: Denies chest pain and Denies dyspnea Respiratory: Respiratory: Denies cough and Denies dyspnea Gastrointestinal: Gastrointestinal: Denies abdominal pain Endocrine: Endocrine: Denies fatigue PMF Past Medical History Attestation statement: The following information was validated with the patient. Medical History Hallucination, visual Substance abuse Violent behavior Schizoaffective disorder Social History Social History Household Members: None Household Members Other:: Patient lives in a correction in [place] with other residents. Housing: Other Housing Other:: [facility] Do you presently have visiting nurse or other home services: No Unable to assess alcohol history related to: Unknown Alcohol intake: never Patient Tobacco Use Status: Refuse Tobacco use screen Tobacco use type: Cigarette Cigarettes Per Day: 3 Years Smoked: unsure e-Cigarette/Vaping Use: Never Used Second Hand Smoke Exposure: No Substance Use Type: Crack/Cocaine and Marijuana Advance Directives: No Advance Directives Information Provided: No Do you have a plan to hurt others: No Plan service: No Sexual orientation: Straight/Heterosexual Physical Exam ED Vital Signs: Vital Signs - 24 hr 01/02/25 02:10 01/02/25 07:40 Temperature 98.5 F 97.6 F Pulse Rate 90 76 Respiratory Rate 17 14 Blood Pressure 120/69 110/67 Pulse Oximetry 99 96 Oxygen Delivery Method Room Air Room Air BMI result Body Mass Index 26.3 Const Other: Alert Orientation/consciousness: patient oriented x3 Resp Effort & Inspection: normal respiratory effort Cardio Other: Normal peripheral perfusion Skin Other: Warm general rash Neuro General: patient oriented x3, gait normal, no focal motor deficits and CN's II- XI intact bilaterally Psych Other: Cooperative here in the ED Medications Administered Discontinued Medications Generic Name Dose Route Start Last Admin Trade Name Freq PRN Reason Stop Dose Admin Acetaminophen 650 mg 01/02/25 07:55 01/02/25 07:59 Acetaminophen 325 Mg Tablet PO 01/02/25 07:56 Not Given ONCE ONE Acetaminophen 650 mg 01/02/25 09:19 01/02/25 09:22 Acetaminophen 325 Mg Tablet PO 01/02/25 09:20 650 mg ONCE ONE Administration Medical Decision Making Medical Decision Making MDM Narrative: 34-year-old male with a history of cocaine use disorder, ongoing marijuana dependence and schizoaffective, who presents with auditory hallucinations. Patient states he is ?hearing pupil crying?. Patient states he is feeling paranoid and anxious, that he ?does not feel safe around certain people?. Patient was currently refusing labs, when I ask him why, he states ?if I give my blood the spirits will get mad at me?. He has been having these symptoms for months. He admits to drinking alcohol overnight to try and ?make it better?. Denies SI or HI. I have considered the following differential diagnoses: SI, HI, decompensated psychiatric illness, drug/alcohol intoxication Plan: Screening labs including ethanol, drug screen we will be obtained, the patient will be referred to the care team. Patient is seen by care team advised to discharge patient home for schizophrenia and to continue his medication as before Discharge Plan Discharge Clinical Impression: Auditory hallucination, Paranoid delusion, Chronic schizophrenia Patient Disposition: Home, Self-Care Instructions: Schizoaffective Disorder (ED) Additional Instructions: Continue medication and follow up with the therapist and psychiatrist Prescriptions: No Action nicotine (polacrilex) 4 mg gum 4 mg buccal Q2H PRN (Reason: nicotine cravings) 30 Days Qty: 100 0RF divalproex 500 mg Tablet,Delayed Release (Dr/Ec) 1,500 mg PO BEDTIME 30 Days Qty: 90 0RF Rx Instructions: can either take all 3 tabs at bedtime or take 1 tab 3x a day lithium carbonate 450 mg tablet extended release 900 mg PO BEDTIME 30 Days Qty: 60 0RF olanzapine 15 mg tablet 15 mg PO BID 30 Days Qty: 60 0RF atorvastatin 10 mg tablet 10 mg PO DAILY benztropine 1 mg tablet 1 mg PO DAILY levothyroxine 75 mcg tablet 75 mcg PO DAILY@0600 pantoprazole 40 mg tablet,delayed release (DR/EC) 40 mg PO DAILY@0630 Interventions: [place]-Suicide Risk Severity Scale Last Done: 01/02/25 02:36 Print Language: Pashto
--- NOTE | 2025-01-02 05:20 | PC.NURSE ---
patient audibly giggling periodically
--- NOTE | 2025-01-02 06:58 | MHC.EDTECH ---
Patient refusing lab work this morning. RN aware.
--- NOTE | 2025-01-02 07:32 | PC.NURSE ---
Patient woke up and took a shower, is still refusing labs and urine.
[2025-01-02 07:40] VITALS: BP 110/67; PULSE 76; RESP 14; TEMP 36.4; O2SAT 96
--- NOTE | 2025-01-02 09:21 | MHC.EDTECH ---
Urine cup at bedside, patient aware a urine sample is required.
[2025-01-02] MEDS: Acetaminophen 325 MG TABLET 650 MG PO (09:22)
[2025-01-02 10:54] VITALS: BP 110/67; PULSE 76; RESP 14; TEMP 36.4; O2SAT 96
--- NOTE | 2025-01-02 10:59 | MHC.CARE ---
Patient evaluated by the CARE Team, he does not require an inpatient psychiatric admission. ED provider Dr. Jefferson updated and in agreement with the plan to discharge.
== END 2025-01-02 10:56 | disposition home or self-care (01) ==
PROVIDERS: Emergency Provider Emergency Medicine Emergency Medical Services; PCP Psychiatry & Neurology Psychiatry
DX: F25.9 Schizoaffective disorder, unspecified (principal); F22 Delusional disorders; F12.20 Cannabis dependence, uncomplicated; F41.9 Anxiety disorder, unspecified; Z79.899 Other long term (current) drug therapy
CPT/HCPCS: 99284; S9485

== ENCOUNTER 2025-01-06 23:35 | Emergency (ER) | payer MEDICARE, MEDICAID, SELFPAY ==
[2025-01-07] VITALS: BP 136/82; BP 138/70; PULSE 83; PULSE 88; RESP 16; TEMP 36.9; O2SAT 99; BMI 26.6
--- NOTE | 2025-01-07 00:58 | ED_ITS ---
HPI - Psych General Chief Complaint: Psychiatric Symptoms Stated Complaint: Seeing Things Hearing Voices Time Seen by Provider: 01/07/25 00:52 Source: patient and EMS Mode of arrival: EMS Limitations: no limitations History of Present Illness ED Provider: Maryam Saba NP HPI Narrative: Patient is a 34-year-old male who presents emergency department via EMS from evaluation, he is coming from a [facility], which he states he has been at for approximately 5 months, admits that he is not getting along with the staff or the other [facility] members. He endorses having auditory hallucinations, seeing ?shadows?, endorses being compliant with his medications, but states that he is having increasing stress and vaguely endorses SI without providing any specific plan. When asked whether he uses any recreational drugs or alcohol he states while I am not going to answer that question I gave a urine you can check that?. He denies any physical complaints at this time. Related Data Home Medications ?Medication ?Instructions ?Recorded ?Confirmed atorvastatin 10 mg tablet 10 mg PO DAILY 12/17/24 01/07/25 benztropine 1 mg tablet 1 mg PO DAILY 12/17/24 01/07/25 levothyroxine 75 mcg tablet 75 mcg PO DAILY@0600 disorder of 12/25/24 01/07/25 thyroid gland pantoprazole 40 mg tablet,delayed 40 mg PO DAILY@0630 12/25/24 01/07/25 release Previous Rx's ?Medication ?Instructions ?Recorded divalproex 500 mg tablet,delayed 1,500 mg (3 x 500 mg) PO BEDTIME 11/11/24 release 30 days #90 tabs lithium carbonate 450 mg 900 mg (2 x 450 mg) PO BEDTIME 11/11/24 tablet,extended release depressive disorder 30 days #60 tabs nicotine (polacrilex) 4 mg gum 4 mg buccal Q2H PRN nicotine 11/11/24 cravings 30 days #100 ea olanzapine 15 mg tablet 15 mg PO BID 30 days #60 tabs 11/11/24 Allergies Allergy/AdvReac Type Severity Reaction Status Date / Time quetiapine [From SEROQUEL] Allergy Severe ANAPHYLAXIS Verified 01/07/25 00:03 haloperidol [HALOPERIDOL] Allergy Intermediate SWELLING Verified 01/07/25 00:03 trazodone Allergy Unknown Verified 01/07/25 00:03 Review of Systems Review of Systems: Yes all other systems are reviewed and are negative [facility] Past Medical History Attestation statement: The following information was validated with the patient. Source: old records reviewed Medical History Hallucination, visual Substance abuse Violent behavior Schizoaffective disorder Social History Social History Household Members: None Household Members Other:: Patient lives in a usp in [place] with other residents. Housing: Other Housing Other:: HALFWAY Do you presently have visiting nurse or other home services: No Unable to assess alcohol history related to: Unknown Alcohol intake: never Patient Tobacco Use Status: Refuse Tobacco use screen Tobacco use type: Cigarette Cigarettes Per Day: 3 Years Smoked: unsure e-Cigarette/Vaping Use: Never Used Second Hand Smoke Exposure: No Substance Use Type: Crack/Cocaine and Marijuana Advance Directives: No Advance Directives Information Provided: Yes Do you have a plan to hurt others: No Plan service: No Sexual orientation: Straight/Heterosexual Physical Exam Vital Signs: Vital Signs: Last Vital Signs Temp 98.3 F 01/07/25 06:28 Pulse 61 01/07/25 06:28 Resp 16 01/07/25 06:28 BP 90/46 L 01/07/25 06:28 Pulse Ox 98 01/07/25 06:28 O2 Del Method Room Air 01/07/25 06:28 BMI result Body Mass Index 26.6 Appearance: Alert.?Oriented to person, place and time. No acute distress. ?Normal affect. Eyes: Pupils equal, round and reactive to light.? ENT: Pharynx normal.?? Neck: Normal inspection.? Neck supple.?? CVS: Heart sounds normal. Normal heart rate and rhythm.? Pulses normal.?? Respiratory: No respiratory distress.? Lung sounds clear to auscultation bilaterally?? Abdomen: Soft and non-tender. Normoactive bowel sounds. Skin: Skin warm and dry.? Normal skin color.? Extremities: No lower extremity edema.? Neuro: Moves all extremities spontaneously. Sensation intact bilaterally. CN II- XII intact. No focal neuro deficits. Ambulates with normal steady gait. Course Reevaluation(s) Reevaluation #1: 01/07/2025, DR. Arnett's progress note: Discontinue physician observation, no SI, no HI, care team consult is appreciated, patient will be discharged back to the usp patient is at baseline. Time: 11:35 Medications Administered Generic Name Dose Route Start Last Admin Trade Name Stefan PRN Reason Stop Dose Admin Atorvastatin Calcium 10 mg 01/07/25 10:45 01/07/25 11:40 Atorvastatin Calcium 10 Mg Tablet PO 10 mg DAILY OSKAR Administration Benztropine Mesylate 1 mg 01/07/25 10:45 01/07/25 11:40 Benztropine Mesylate 1 Mg Tablet PO 1 mg DAILY OSKAR Administration Levothyroxine Sodium 75 mcg 01/07/25 10:45 01/07/25 11:39 Levothyroxine Sodium 75 Mcg Tablet PO 75 mcg DAILY@0600 OSKAR Administration Olanzapine 15 mg 01/07/25 10:45 01/07/25 11:40 Olanzapine 7.5 Mg Tablet PO 15 mg BID OSKAR Administration Medical Decision Making Medical Decision Making [facility] Narrative: Patient is a 34-year-old male with past medical history of schizoaffective disorder, substance use disorder with cocaine and marijuana presenting for evaluation of auditory hallucinations and vague suicidal ideations. Denies any homicidal ideations. Will not admit to any recreational drug or alcohol usage today when asked. He declines to have labs drawn, when asked why, he states ?I am not going to answer that?. He offers no physical complaints in his physical examination is benign. Did provide a urine sample which is positive for cocaine and marijuana. He was evaluated in the ED 01/02/2025 with similar presentation at that time denying any SI, he was evaluated by care team and ultimately discharged back to usp. Differential Diagnosis Differential Diagnoses: The differential diagnosis associated with the presentation includes (See narrative above and below for further detail) Admission/Observation Consideration of admission/observation: Escalation of care including admission/observation considered Patient is being observed in the Emergency Department for auditory hallucinations and SI. Observation time was started at 01:00 on 01/07/2025..?The patient is currently stable and non-toxic appearing. Observation is being initiated in the Emergency Department to allow time to help differentiate if the patient's auditory hallucinations and SI is due to Substance Induced Mood Disorder and Anxiety versus Major Depressive Disorder, Bipolar Mallory, Bipolar Depression, and Schizophrenia. The patient will receive frequent psychiatric assessments from the provider as well as from nursing staff. The patient will a lso be monitored for the need of PRN agitation medications such as Haldol, Ativan, and Benadryl. Consult Healthcare Provider Management of the patient was discussed with: Behavioral Health Provider (CARE team) Lab Data MDM Lab Attestation statement: I reviewed the patient's lab results. Labs: Lab Results 01/07/25 Range/Units 01:31 Urine Opiates Screen Not Detected (Not Detect) Ur Buprenorphine Scrn Not Detected (Not Detect) ng/mL Ur Oxycodone Screen Not Detected (Not Detect) ng/mL Urine Methadone Screen Not Detected (Not Detect) ng/mL Urine Fentanyl Screen Not Detected (Not Detect) Ur Barbiturates Screen Not Detected (Not Detect) Ur Phencyclidine Scrn Not Detected (Not Detect) Ur Amphetamines Screen Not Detected (Not Detect) U Benzodiazepines Scrn Not Detected (Not Detect) Urine Cocaine Screen POSITIVE H (Not Detect) U Marijuana (THC) Screen POSITIVE H (Not Detect) External Record Review External record reviewed: Outpatient record Chronic Conditions Patient?s care impacted by: Other (See narrative above) Discharge Plan Discharge Clinical Impression: Schizoaffective disorder Patient Disposition: Xfer [facility] Instructions: Schizoaffective Disorder (ED) Prescriptions: No Action nicotine (polacrilex) 4 mg gum 4 mg buccal Q2H PRN (Reason: nicotine cravings) 30 Days Qty: 100 0RF divalproex 500 mg Tablet,Delayed Release (Dr/Ec) 1,500 mg PO BEDTIME 30 Days Qty: 90 0RF Rx Instructions: can either take all 3 tabs at bedtime or take 1 tab 3x a day lithium carbonate 450 mg tablet extended release 900 mg PO BEDTIME 30 Days Qty: 60 0RF olanzapine 15 mg tablet 15 mg PO BID 30 Days Qty: 60 0RF atorvastatin 10 mg tablet 10 mg PO DAILY benztropine 1 mg tablet 1 mg PO DAILY levothyroxine 75 mcg tablet 75 mcg PO DAILY@0600 pantoprazole 40 mg tablet,delayed release (DR/EC) 40 mg PO DAILY@0630 Interventions: [place]-Suicide Risk Severity Scale Last Done: 01/07/25 03:01 Print Language: Choose Not To Answer
--- NOTE | 2025-01-07 01:42 | MHC.EDTECH ---
pt refusing lab work at this time. rn and provider aware.
[2025-01-07 01:50] LABS: Amphetamine Screen Urine Not Detected (Not Detect); Barbiturates, Urine Not Detected (Not Detect); Benzodiazepines Screen Urine Not Detected (Not Detect); Buprenorphine Scr Not Detected (Not Detect); Cannabinoid Screen Urine POSITIVE (Not Detect); Cocaine Screen Urine POSITIVE (Not Detect); Fentanyl, urine Not Detected (Not Detect); Methadone Screen, Urine Not Detected (Not Detect); Opiate Screen Urine Not Detected (Not Detect); Oxycodone Screen Urine Not Detected (Not Detect); Phencyclidine Screen Urine Not Detected (Not Detect)
[2025-01-07 06:28] VITALS: BP 90/46; PULSE 61; RESP 16; TEMP 36.8; O2SAT 98
--- NOTE | 2025-01-07 07:07 | PC.NURSE ---
Care of Pt assumed at change of shift. Pt currently resting comfortably with eye closed. Breakfast try provided at bedside.
[2025-01-07] MEDS: Levothyroxine Sodium 75 MCG TABLET PO (11:39)
[2025-01-07] MEDS: Atorvastatin Calcium 10 MG TABLET PO (11:40)
[2025-01-07] MEDS: Benztropine Mesylate 1 MG TABLET PO (11:40)
[2025-01-07] MEDS: OLANZapine 7.5 MG TABLET 15 MG PO (11:40)
--- NOTE | 2025-01-07 11:56 | MHC.CARE ---
Addendum entered by Rosanne Mckeon [facility] 01/07/25 12:46: Pt will be discharged after collateral contact with [facility]. Original Note: Pt assessed by the CARE Team and found IPLOC. Pt on Section 12A and aware of plan of care. RN and MD notified.
[2025-01-07 13:22] VITALS: BP 90/46; PULSE 61; RESP 16; TEMP 36.8; O2SAT 98
== END 2025-01-07 13:23 | disposition skilled nursing facility (03) ==
PROVIDERS: Emergency Provider Emergency Medicine Emergency Medical Services
DX: F25.9 Schizoaffective disorder, unspecified (principal); Z72.89 Other problems related to lifestyle; Z59.2 Discord with neighbors, lodgers and landlord; F19.10 Other psychoactive substance abuse, uncomplicated; F12.20 Cannabis dependence, uncomplicated; Z79.899 Other long term (current) drug therapy; Z79.02 Long term (current) use of antithrombotics/antiplatelets; F17.210 Nicotine dependence, cigarettes, uncomplicated
CPT/HCPCS: 80307; 99284; S9485

== ENCOUNTER 2025-01-11 16:07 | Emergency (ER) | payer MEDICARE, MEDICAID, SELFPAY ==
[2025-01-11 16:16] VITALS: PULSE 118; O2SAT 96; BMI 27.4
--- NOTE | 2025-01-11 16:27 | ED.GENADULT ---
HPI - General Adult General Chief complaint: Psychiatric Symptoms Stated complaint: AMS Time Seen by Provider: 01/11/25 16:27 Source: patient and EMS Mode of arrival: EMS Limitations: no limitations History of Present Illness ED Provider: Tiana Segovia PA-C HPI narrative: Patient is a 34 year old assigned male at with a history of cocaine use disorder, cannabis use, and schizoaffective disorder presenting to the emergency department today with auditory and visual hallucinations. Patient states that he has been hearing things that are not there and seeing things that are not there including ghosts in his room and bed. Patient denies any dizziness, lightheadedness, abdominal pain, nausea, vomiting, fever, chills, blurry vision, double vision, loss of vision, chest pain, difficulty breathing, shortness of breath, back pain, night sweats, pain with urination, increased urinary frequency, increased urinary urgency, blood in his urine or stool, syncope or a near syncopal episode, recent trauma or falls, bowel incontinence, bladder incontinence, or any other complaints at this time. Relieving factors: none Exacerbating factors: none Associated symptoms: denies other symptoms Treatments prior to arrival: none Related Data Home Medications ?Medication ?Instructions ?Recorded ?Confirmed atorvastatin 10 mg tablet 10 mg PO DAILY 12/17/24 01/12/25 benztropine 1 mg tablet 1 mg PO BID 12/17/24 01/12/25 levothyroxine 75 mcg tablet 75 mcg PO DAILY@0600 disorder of 12/25/24 01/12/25 thyroid gland pantoprazole 40 mg tablet,delayed 40 mg PO DAILY@0630 12/25/24 01/12/25 release nicotine (polacrilex) 4 mg gum 4 mg buccal Q1-2H PRN nicotine 01/12/25 01/12/25 cravings olanzapine 15 mg tablet 30 mg PO BEDTIME 01/12/25 01/12/25 risperidone 2 mg tablet (Risperdal) 2 mg PO DAILY 01/12/25 01/12/25 Previous Rx's ?Medication ?Instructions ?Recorded divalproex 500 mg tablet,delayed 1,500 mg (3 x 500 mg) PO BEDTIME 11/11/24 release 30 days #90 tabs lithium carbonate 450 mg 900 mg (2 x 450 mg) PO BEDTIME 11/11/24 tablet,extended release depressive disorder 30 days #60 tabs Allergies Allergy/AdvReac Type Severity Reaction Status Date / Time quetiapine [From SEROQUEL] Allergy Severe ANAPHYLAXIS Verified 01/11/25 16:23 haloperidol [HALOPERIDOL] Allergy Intermediate SWELLING Verified 01/07/25 00:03 trazodone Allergy Unknown Verified 01/07/25 00:03 Review of Systems Constitutional: Constitutional: Reports no additional constitutional complaints, Denies chills, Denies fever(s) and Denies night sweats Eyes: Eyes: Reports no additional eye complaints, Denies blurry vision, Denies change in vision, Denies diplopia, Denies eye discharge, Denies loss of vision and Denies eye pain ENT: Denies dizziness Cardiovascular: Cardiovascular: Reports no additional cardiovascular complaints, Denies chest pain, Denies lightheadedness, Denies Loss of Consciousness and Denies dyspnea Respiratory: Respiratory: Reports no additional respiratory complaints and Denies dyspnea Gastrointestinal: Gastrointestinal: Reports no additional gastrointestinal complaints, Denies abdominal pain, Denies melena, Denies hematochezia, Denies change in bowel habits and Denies change in stool character Genitourinary: Genitourinary: Reports no additional male genitourinary complaints, Denies hematuria, Denies oliguria, Denies difficulty urinating, Denies dysuria, Denies urinary frequency, Denies urinary hesitancy, Denies urinary incontinence and Denies urinary urgency Musculoskeletal: Musculoskeletal: Reports no additional musculoskeletal complaints, Denies numbness and Denies tingling Neurologic: Denies dizziness, Denies loss of vision, Denies numbness and Denies tingling Psychiatric: Psychiatric: Reports no additional psychiatric complaints, Reports auditory hallucinations, Reports visual hallucinations, Denies homicidal ideation and Denies suicidal ideation Endocrine: Endocrine: Reports no additional endocrine complaints Hematologic/Lymphatic: Hematologic/Lymphatic: Reports no additional hematologic/lymphatic complaints Allergic/Immunologic: Allergic/Immunologic: Reports no additional allergic/immunologic complaints [facility] Past Medical History Attestation statement: The following information was validated with the patient. Source: old records reviewed and nursing notes reviewed Medical History Hallucination, visual Substance abuse Violent behavior Schizoaffective disorder Social History Social History Household Members: None Household Members Other:: Patient lives in a prison in [place] with other residents. Housing: Other Housing Other:: [facility] Do you presently have visiting nurse or other home services: No Unable to assess alcohol history related to: Unknown Alcohol intake: never Patient Tobacco Use Status: Refuse Tobacco use screen Tobacco use type: Cigarette Cigarettes Per Day: 3 Years Smoked: unsure Smoked in Last 30 Days: Yes e-Cigarette/Vaping Use: Never Used Second Hand Smoke Exposure: No Use of substances other than those prescribed or required for medical reasons: Yes Substance Use Type: Crack/Cocaine Last Used Substance: Just Prior to Admission Any prior treatment program specific to substance use: Yes Advance Directives: No Advance Directives Information Provided: No service: No Sexual orientation: Straight/Heterosexual Physical Exam ED Vital Signs: Vital Signs - 24 hr 01/11/25 16:37 01/12/25 06:24 Temperature 99.1 F 98.5 F Pulse Rate 92 78 Respiratory Rate 18 17 Blood Pressure 105/67 96/62 Pulse Oximetry 98 98 Oxygen Delivery Method Room Air Room Air BMI result Body Mass Index 27.4 Const General: cooperative, no acute distress, alert and awake Nutritional Appearance: well nourished Orientation/consciousness: patient oriented x3 Limitations: no limitations HENMT Head: Yes normal to inspection and Yes atraumatic Ears: hearing grossly normal bilaterally and external ears normal General nose exam: Normal external nose present, no nasal discharge noted and no epistaxis Face and sinus: Yes normal facial exam, No abrasion and No laceration Mouth: Normal oral and palatal mucosa present, no drooling and no muffled voice Eyes General: appearance normal, both eyes and all related structures Periorbital: periorbital findings normal Eyelids: Yes eyelids normal Conjunctivae: conjunctivae normal Pupils: Equal, round and reactive pupils present EOM: EOMs intact bilaterally Neck Neck: Yes normal visual inspection, Yes full ROM and Yes no lymphadenopathy Chest Chest palpation & inspection: normal inspection of the chest Resp Effort & Inspection: normal respiratory effort and able to speak in complete sentences GI Inspection: Yes normal to inspection Neuro General: patient oriented x3, moves all extremities and CN's II-XI intact bilaterally Cranial nerves: Yes Equal, round and reactive pupils present Cognition (Neuro): normal cognition Extrem General: Yes normal to inspection, Yes full ROM and Yes capillary refill normal Psych Appearance: grossly normal Mental Status: mental status grossly normal Affect: Labile affect present Attitude: Belligerent attititude/behavior present Thought process: Confabulating thought process present Course Course Course Narrative: Time: 08:54 Date: 01/12/25 Provider: Brittney Salgado, DO Patient in physician observation for psychiatric evaluation.? No acute events reported overnight. No current complaints. VS stable.? Patient is in bed search status. Will continue to monitor. Reevaluation(s) Reevaluation #1: Time: 11:55 Date: 01/12/25 Provider: Brittney Salgado DO Physician observation ended at 1155am Patient has been cleared for discharge by the CARE team. Will follow up as an outpatient. Medications Administered Generic Name Dose Route Start Last Admin Trade Name Freq PRN Reason Stop Dose Admin Atorvastatin Calcium 10 mg 01/12/25 09:00 01/12/25 10:48 Atorvastatin Calcium 10 Mg Tablet PO 10 mg DAILY OSKAR Administration Benztropine Mesylate 1 mg 01/12/25 09:00 01/12/25 10:48 Benztropine Mesylate 1 Mg Tablet PO 1 mg BID OSKAR Administration Risperidone 2 mg 01/12/25 09:00 01/12/25 10:48 Risperidone 2 Mg Tablet PO 2 mg DAILY OSKAR Administration Discontinued Medications Generic Name Dose Route Start Last Admin Trade Name Freq PRN Reason Stop Dose Admin Acetaminophen 975 mg 01/11/25 17:05 01/11/25 17:09 Acetaminophen 325 Mg Tablet PO 01/11/25 17:06 975 mg ONCE ONE Administration Medical Decision Making Medical Decision Making [facility] Narrative: Patient is a 34 year old assigned male at with a history of cocaine use disorder, cannabis use, and schizoaffective disorder presenting to the emergency department today with auditory and visual hallucinations. Patient's physical exam was as noted in the physical exam portion of this note. Patient's blood work was unremarkable. Patient's EKG was unremarkable. I explained my physical exam findings as well as all test results to the patient. I answered all questions asked by the patient. Patient's disposition is pending CARE team evaluation. Patient placed in observation pending CARE team eval. Differential Diagnosis Differential Diagnoses: The differential diagnosis associated with the presentation includes Auditory hallucinations Visual hallucinations Admission/Observation Consideration of admission/observation: Escalation of care including admission/observation considered Patient's disposition will be determined after CARE team evaluation. Lab Data [facility] Lab Attestation statement: I reviewed the patient's lab results. My interpretation of these results are in the MDM Rationale portion of this note. 01/11/25 16:52 01/11/25 16:52 Labs: Lab Results 01/11/25 01/12/25 Range/Units 16:52 06:23 WBC 9.4 (4.8-10.8) X10*3/uL RBC 5.16 (4.60-5.80) X10*6/uL Hgb 16.2 (14.0-18.0) g/dl Hct 45.0 (42.0-52.0) % MCV 87.2 (80.0-98.0) fL MCH 31.4 (27.0-33.0) pg MCHC 36.0 (31.0-36.0) g/dl RDW 13.2 (11.0-16.0) % Plt Count 234 (160-400) X10*3/uL MPV 9.8 (9.4-12.4) fL Immature Gran % (Auto) 0.5 H (0.0-0.4) % Neut % (Auto) 73.3 H (45-73) % Lymph % (Auto) 17.5 L (20-40) % [place] % (Auto) 7.1 (2-11) % Eos % (Auto) 1.1 (0-4) % Baso % (Auto) 0.5 (0-2) % Lymph # (Auto) 1.6 (1.2-4.9) X10*3/uL [place] # (Auto) 0.7 (0.1-1.2) X10*3/uL Eos # (Auto) 0.1 (0.0-0.4) X10*3/uL Baso # (Auto) 0.1 (0.0-0.2) X10*3/uL Abs Immat Gran (auto) 0.05 H (0.00-0.03) X10*3/uL Absolute Neuts (auto) 6.9 (2.0-8.3) x10*3/uL Absolute Nucleated RBC 0.000 (0.0-0.012) X10*3/uL Nucleated RBC % (auto) 0.0 (0.0-0.2) /100WBC Sodium 142 (135-145) mmol/L Potassium 4.6 (3.3-5.1) mmol/L Chloride 108 (96-108) mmol/L Carbon Dioxide 27 (22-29) mmol/L Anion Gap 12 (12-20) BUN 12 (9-16) mg/dL Creatinine 0.82 (0.5-1.4) mg/dL Estim Creat Clear Calc 121.6 Estimated GFR > 60 Random Glucose 88 (60-115) mg/dL Calcium 10.1 (8.4-10.2) mg/dL Total Bilirubin 0.9 (0.0-1.0) mg/dL AST 35 (5-37) U/L ALT 38 (0-40) U/L Alkaline Phosphatase 65 (39-117) U/L Total Protein 7.3 (6.5-8.0) g/dL Albumin 4.8 (3.5-5.0) g/dL Urine Color Yellow Urine Appearance Clear Urine pH 6.0 (5.0-9.0) Ur Specific [place] 1.025 (1.005-1.025) Urine Protein Negative (Neg-Trace) mg/dL Urine Glucose (UA) Negative (Negative) mg/dL Urine Ketones Negative (Negative) mg/dL Urine Blood Negative (Negative) Urine Nitrite Negative (Negative) Ur Leukocyte Esterase Negative (Negative) Salicylates < 5.0 L (15-30) mg/dL Urine Opiates Screen Not Detected (Not Detect) Ur Buprenorphine Scrn Not Detected (Not Detect) ng/mL Ur Oxycodone Screen Not Detected (Not Detect) ng/mL Urine Methadone Screen Not Detected (Not Detect) ng/mL Urine Fentanyl Screen Not Detected (Not Detect) Acetaminophen < 3 (<30) mcg/mL Ur Barbiturates Screen Not Detected (Not Detect) Ur Phencyclidine Scrn Not Detected (Not Detect) Ur Amphetamines Screen Not Detected (Not Detect) U Benzodiazepines Scrn Not Detected (Not Detect) Urine Cocaine Screen POSITIVE H (Not Detect) U Marijuana (THC) Screen POSITIVE H (Not Detect) Ethyl Alcohol < 10 mg/dL COVID-19 ([facility]) Negative (Negative) COVID-19 Clin Com See Note Independent Interpretation I performed an independent interpretation of an: EKG Interpretation: I independently interpreted this EKG and am in agreement with the below findings: Vent. Rate: 82 BPM Atrial Rate: 82 BPM P-R Int: 134 ms QRS Dur: 98 ms QT Int: 354 ms P-R-T Axes: 61 -19 36 degrees QTcB Int: 413 ms Normal sinus rhythm When compared with ECG of 01-Mar-2023 08:19, No significant change was found DD/ 1719 Radiology Impression Discussion of test interpretation with radiology: I have reviewed the radiologist's reading. Independent Historian Clinical information obtained from an independent historian. History obtained from or confirmed by: EMS (EMS provided additional history and confirmed the history provided by the patient.) Discharge Plan Discharge Clinical Impression: Schizoaffective disorder Qualifiers: Schizoaffective disorder type: unspecified Qualified Code(s): F25.9 - Schizoaffective disorder, unspecified Drug-induced psychotic disorder Qualifiers: Complication of substance-induced condition: with delusions Qualified Code(s): F19.950 - Other psychoactive substance use, unspecified with psychoactive substance-induced psychotic disorder with delusions Patient Disposition: Home, Self-Care Instructions: Schizoaffective Disorder (ED) Additional Instructions: You were seen in our Emergency Department today for treatment of a behavioral health issue. It is important after your visit that you follow up with either your behavioral health provider or a primary care doctor within 7 days.? If you have trouble finding a therapist you can reach out to [place] [phone] The National Suicide and Crisis Lifeline can be reached 7 days a week 24 hours a day.? Call 988 to speak with someone.? Return for any worsening symptoms or concerns such as thoughts of self harm or harm to others. Please call 911 if you feel your mental health is worsening.? Prescriptions: No Action divalproex 500 mg Tablet,Delayed Release (Dr/Ec) 1,500 mg PO BEDTIME 30 Days Qty: 90 0RF Rx Instructions: can either take all 3 tabs at bedtime or take 1 tab 3x a day lithium carbonate 450 mg tablet extended release 900 mg PO BEDTIME 30 Days Qty: 60 0RF atorvastatin 10 mg tablet 10 mg PO DAILY benztropine 1 mg tablet 1 mg PO BID levothyroxine 75 mcg tablet 75 mcg PO DAILY@0600 pantoprazole 40 mg tablet,delayed release (DR/EC) 40 mg PO DAILY@0630 nicotine (polacrilex) 4 mg gum 4 mg buccal Q1-2H PRN (Reason: nicotine cravings) olanzapine 15 mg tablet 30 mg PO BEDTIME risperidone [Risperdal] 2 mg Tablet 2 mg PO DAILY Interventions: [place]-Suicide Risk Severity Scale Last Done: 01/11/25 16:23 Print Language: Choose Not To Answer
--- NOTE | 2025-01-11 16:28 | ECG_ITS ---
Test Reason : MED CLEARANCE Blood Pressure : */* mmHG Vent. Rate : 82 BPM Atrial Rate : 82 BPM P-R Int : 134 ms QRS Dur : 98 ms QT Int : 354 ms P-R-T Axes : 61 -19 36 degrees QTcB Int : 413 ms Normal sinus rhythm Normal ECG When compared with ECG of 01-Mar-2023 08:19, No significant change was found Referred By: Tiana Segovia Electronically Signed By: Kenton Lopez
[2025-01-11 16:37] VITALS: BP 105/67; PULSE 92; RESP 18; TEMP 37.3; O2SAT 98
[2025-01-11 16:58] LABS: MANUAL DIFF FLAG NO
[2025-01-11 16:59] LABS: Basophils Absolute Auto 0.1 X10*3/uL (0.0-0.2); Basophils Percent Auto 0.5 % (0-2); Eosinophils Absolute Auto 0.1 X10*3/uL (0.0-0.4); Eosinophils Percent Auto 1.1 % (0-4); Hemoglobin 16.2 g/dl (14.0-18.0); Imm Gran Abs Auto 0.05 X10*3/uL (0.00-0.03); Imm Gran Pct Auto 0.5 % (0.0-0.4); Lymphocytes Absolute Auto 1.6 X10*3/uL (1.2-4.9); Lymphocytes Percent Auto 17.5 % (20-40); Mean Corpuscular Hemoglobin 31.4 pg (27.0-33.0); Mean Corpuscular Volume 87.2 fL (80.0-98.0); Mean Platelet Volume 9.8 fL (9.4-12.4); Monocytes Absolute Auto 0.7 X10*3/uL (0.1-1.2); Monocytes Percent Auto 7.1 % (2-11); Neutrophils Absolute Auto 6.9 x10*3/uL (2.0-8.3); Neutrophils Percent Auto 73.3 % (45-73); Platelet Count 234 X10*3/uL (160-400); Red Blood Count 5.16 X10*6/uL (4.60-5.80); Red Cell Distribution Width 13.2 % (11.0-16.0); White Blood Count 9.4 X10*3/uL (4.8-10.8)
[2025-01-11] MEDS: Acetaminophen 325 MG TABLET 975 MG PO (17:09)
[2025-01-11 17:18] LABS: COVID-19 Test Negative (Negative); IDNOW Serial# 55D5AD1C
[2025-01-11 17:22] LABS: Acetaminophen LAB < 3 mcg/mL (<30); Salicylate < 5.0 mg/dL (15-30)
[2025-01-11 17:23] LABS: Alanine Aminotransferase 38 U/L (0-40); Albumin Level 4.8 g/dL (3.5-5.0); Anion Gap 12 (12-20); Aspartate Amino Transferase 35 U/L (5-37); Bilirubin Total 0.9 mg/dL (0.0-1.0); Blood Urea Nitrogen 12 mg/dL (9-16); Calcium 10.1 mg/dL (8.4-10.2); Carbon Dioxide 27 mmol/L (22-29); Chloride 108 mmol/L (96-108); Creatinine Clr Calc Pharmacy 121.6; Estimated Glomerular Filt Rate > 60; Ethanol < 10 mg/dL; Glucose Random 88 mg/dL (60-115); Potassium 4.6 mmol/L (3.3-5.1); Sodium 142 mmol/L (135-145); Total Protein 7.3 g/dL (6.5-8.0)
[2025-01-11 17:32] LABS: Alkaline Phosphatase 65 U/L (39-117)
--- OUTSIDE RECORDS SUMMARY | 2025-01-11 18:51 | XMS_ITS | Encounter Summary ---
Author Organization [facility] Address [address] [place] [address] Care Team Providers Care Footwear Stitcher Name Role Phone Sreekanth Hurtado MD Primary Care Provider [phone] Reason for Visit * Reason Comments Psychiatric Evaluation Hearing voices Encounter Details Date Type Department Care Team (Late st Contact Info) Description 01/09/2025 4:14 AM EDT - 01/09/2025 9:08 AM EDT Emergency [facility] Emergency [address] [place] [id number] Julián Hernandez MD [address] [place] [address] Anxiety disorder, unspecified type (Primary Dx); Hallucinations Discharge Disposition: Home or Self Care Social History Tobacco Use Types Packs/Day Years Used Date Smoking Tobacco: Some Days Cigarettes Sex and Gender Information Value Date Recorded Sex Assigned at Male 09/30/2024 4:45 AM EST Legal Sex Male 3:36 AM EST Gender Identity Male 09/30/2024 4:45 AM EST Sexual Orientation Straight 10/29/2024 10 :30 PM EST documented as of this encounter Last Filed Vital Signs Vital Sign Reading Time Taken Comments Blood Pressure 119/74 01/09/2025 4:23 AM EDT Pulse 65 01/09/2025 4:23 AM EDT Temperature 36.5 ??C (97.7 ??F) 01/09/2025 4:23 AM ED T Respiratory Rate 16 01/09/2025 4:23 AM EDT Oxygen Saturation 98% 01/09/2025 7:21 AM EDT Inhaled Oxygen Concentration - - Weight 81.6 kg (180 lb) 01/09/2025 4:23 AM EDT Height 180.3 cm (5' 11 ) 01/09/2025 4:23 AM EDT Body Mass Index 25.1 01/09/2025 4:23 AM EDT documented in this encounter Functional Status * Are you deaf or do you have serious difficulty hearing? Answer Date of Assessment Author No 01/01/2025 7:09 AM EDT Chris Roe RN * Are you blind or do you have serious difficulty seeing, even when wearing glasses? Answer Date of Assessment Author No 01/01/2025 7:09 AM EDT Chris Roe RN * Do you have serious difficulty walking or climbing stairs? Answer Date of Assessment Author No 01/01/2025 7:09 AM EDT Chris Roe RN * Do you have serious difficulty dressing or bathing? Answer Date of Assessment Author No 01/01/2025 7:09 AM EDT Chris Roe RN * Because of a physical, mental, or emotional condition, do you have serious difficulty doing errandsalone such as visiting the doctor? Answer Date of Assessment Author No 01/01/2025 7:09 AM [place]ERETTET Chris Roe RN documented as of this encounter Mental Status * Because of a physical, mental, or emotional condition, do you have serious difficulty concentrating, remembering, or making decisions? (5 years old or older) Answer Entry Date Author Yes 01/01/2025 7:09 AM [place]ERETTET Chris Roe RN documented in this encounter Discharge Instructions * Discharge Instructions* Julián Hernandez MD - 01/09/2025 8:43 AM EDT DIAGNOSIS / RESULTS / PROCEDURES (what was done): You came to the ED for crisis evaluation. You are cleared and being discharged. INSTRUCTIONS (what you need to do): Call your primary care doctor tomorrow to discuss when you should be seen next. Your doctor may want to arrange follow up for your visit today, or may ask to see you at your next scheduled visit. If you ever feel like you may hurt yourself or others or have thoughts about taking your own life, get help immediately. If you want to call or text anonymously, call 8. If you want to speak to a mental health professional that can refer you for additional services, call or text [phone]. You can also chat online at [email or web address]/ If you want to speak to a mental health professional in-person immediately, call [phone] or go to your nearest emergency department. MEDICATIONS (what you need to take): No medications were added at this visit. Continue taking any prescription medications as prescribed documented in this encounter Medications at Time of Discharge atorvastatin (LIPITOR) 10 mg tablet Take 1 tablet (10 mg total) by mouth at bedtime. 08/19/2024 benztropine (COGENTIN) 1 mg tablet Take 1 tablet (1 mg total) by mouth 2 (two) times a day. buPROPion XL (WELLBUTRIN XL) 150 mg 24 hr tablet Take 1 tablet (150 mg total) by mouth 1 (one) time each day. 09/09/2024 divalproex (DEPAKOTE) [address] tablet Take 3 tablets (1,500 mg total) by mouth at bedtime. 10/12/2024 levothyroxine (SYNTHROID, LEVOTHROID) 75 mcg tablet Take 1 tablet (75 mcg total) by mouth 1 (one) time each day before breakfast. 09/14/2024 lithium (ESKALITH) 450 mg CR tablet Take 2 tablets (900 mg total) by mouth at bedtime. 09/14/2024 nicotine polacrilex (NICORETTE) [address] 1 each (4 mg total) into mouth between cheek and gum every 1 (one) hour if needed for smoking cessation (patient needs while inpatient and in the ED - smokes well over a pack per day). 11/11/2024 OLANZapine (ZyPREXA ZYDIS) 20 mg disintegrating tablet Dissolve 30 mg on top of the tongue at bedtime. pantoprazole (PROTONIX) 40 mg EC tablet Take 1 tablet (40 mg total) by mouth 1 (one) time each day before breakfast. risperiDONE (RisperDAL) 2 mg tablet Take 1 tablet (2 mg total) by mouth 1 (one) time each day. 10/21/2024 documented as of this encounter Discharge Disposition Disposition Code Departure Means Destination Comment s Home or Self Care documented in this encounter Progress Notes * Julián Hernandez MD - 01/09/2025 8:44 AM EDT ED Course as of 01/09/25 0844 Sat Jan 09, 2025 0731 I, Dr. Stephen Hernandez, have received signout for this patient from Dr Crystal at a 0700 hours. The patient is currently pending crisis eval. patient cleared by crisis and discharged during my shift..[MG] ED Course User Index [MG] Julián Hernandez MD Clinical Impressions as of 01/09/25 0844 Hallucinations Discharge 1. Hallucinations Procedures Sean Buchanan * Nani Ortiz RN - 01/09/2025 6:15 AM EDT Pt came back out of room and said he doesn't want us to draw his blood. * Nani Ortiz RN - 01/09/2025 6:10 AM EDT Put just woke up and requested that we draw his blood so he can eat. Will obtain pts blood work. * Nani Ortiz RN - 01/09/2025 4:30 AM EDT Went and spoke with pt and he said he is only here for feeling anxious and to get ativan. Pt denies thoughts of SI/HI. Pt is currently being calm and cooperative. Pt changed into attire. Pt allowed me to take his vitals. Pt is currently laying in bed watching tv. * Nani Ortiz RN - 01/09/2025 4:17 AM EDT Pt BIBA from halfway for c/o hearing voices. Pt refused vitals for EMS. * MARCO ANTONIO Perea - 01/09/2025 4:08 AM EDT Emergency Medicine Note Patient Name: Sean Buchanan Initial Evaluation: 01/09/2025 : 1990 Patient's PCP: Sreekanth Hurtado MD Emergency Physician: MARCO ANTONIO Perea History of Present Illness Chief Complaint: Chief Complaint Patient presents with Psychiatric Evaluation Hearing voices HPI: The patient is a 34-year-old male presenting to the ED for mental health evaluation. Per EMS the patient reported to his halfway staff that he was hearing voices, however patient arrives to the ED reporting he believes his family is being threatened/harmed and this causes him anxiety. The patient is requesting Ativan by name. Patient reports he last saw his psychiatrist 2 weeks ago and heis not prescribed Ativan. The patient denies any acute somatic complaint. The patient denies suicidal or homicidal ideation, denies visual hallucinations, in the ED patient is denying any auditory hallucinations. Patient arrives via ambulance from his halfway, is well-known to this department due to frequent visits for similar complaints and similar request for benzodiazepines. Of note patientrefused vital signs from EMS and is refusing blood work but is amenable to meeting with crisis. ROS: I have performed a ROS with the pertinent positives and negatives documented in the history ofpresent illness. Previous History Past Medical History: Diagnosis Date Bipolar 1 disorder (CMS/HCC) Disease of thyroid gland Schizo affective schizophrenia ([facility]) No past surgical history on file. Social History Tobacco Use Smoking status: Some Days Types: Cigarettes No family history on file. is allergic to clozaril [clozapine], droperidol, haloperidol, seroquel [quetiapine], and trazodone. No current facility-administered medications on file prior to encounter. Current Outpatient Medications on File Prior to Encounter Medication Sig Dispense Refill albuterol HFA (PROAIR HFA ; PROVENTIL HFA ; VENTOLIN HFA) 90 mcg/actuation inhaler Inhale 2 puffs by mouth every 4 (four) hours if needed for wheezing. 1 each 0 atorvastatin (LIPITOR) 10 mg tablet Take 1 tablet (10 mg total) by mouth at bedtime. benztropine (COGENTIN) 1 mg tablet Take 1 tablet (1 mg total) by mouth 2 (two) times a day. buPROPion XL (WELLBUTRIN XL) 150 mg 24 hr tablet Take 1 tablet (150 mg total) by mouth 1 (one) timeeach day. divalproex (DEPAKOTE) [address] tablet Take 3 tablets (1,500 mg total) by mouth at bedtime. levothyroxine (SYNTHROID, LEVOTHROID) 75 mcg tablet Take 1 tablet (75 mcg total) by mouth 1 (one) time each day before breakfast. lithium (ESKALITH) 450 mg CR tablet Take 2 tablets (900 mg total) by mouth at bedtime. nicotine polacrilex (NICORETTE) [address] 1 each (4 mg total) into mouth between cheek and gumevery 1 (one) hour if needed for smoking cessation (patient needs while inpatient and in the ED - smokes well over a pack per day). OLANZapine (ZyPREXA ZYDIS) 20 mg disintegrating tablet Dissolve 30 mg on top of the tongue at bedtime. pantoprazole (PROTONIX) 40 mg EC tablet Take 1 tablet (40 mg total) by mouth 1 (one) time each day before breakfast. risperiDONE (RisperDAL) 2 mg tablet Take 1 tablet (2 mg total) by mouth 1 (one) time each day. Physical Exam Vitals: 01/09/25 0423 01/09/25 0424 01/09/25 0721 BP: 119/74 BP Location: Right arm Patient Position: Sitting Pulse: 65 Resp: 16 Temp: 36.5 ??C (97.7 ??F) TempSrc: Oral SpO2: 98% 98% 98% Weight: 81.6 kg (180 lb) Height: 1.803 m (71 ) CONSTITUTIONAL: The patient appears non-toxic, well nourished and in no acute distress. Vital signsreviewed as documented. HEAD: Atraumatic, normocephalic. EYES: EOMs grossly intact, pupils equal, conjunctiva clear, no exudate. ENT: Nares patent, no discharge. Airway patent, no audible stridor, visible mucosa is pink and moist without noted lesions. NECK: Trachea is midline, no obvious masses or gross abnormalities. CHEST: Symmetric movement, normal appearance. LUNGS: LS present and CTAB, no w/r/r. Non-labored work of breathing. CARDIAC: Regular Rhythm, S1/S2 appreciated, no murmurs, rubs or gallops. ABDOMEN: Abdomen soft/non-tender x4 quadrants, no masses or organomegaly. : Deferred. EXTREMITIES: Normal tone, moves all extremities spontaneously without reported pain. No obvious injury or deformity noted. NEURO: Alert and oriented x3, CN II-XII appear grossly intact. Cerebellar Functioning grossly intact. Speech clear and appropriate. PSYCH: Agitated and withdrawn affect, with poor eye contact but fluid, appropriate speech. No reported suicidality or homicidality. The patient does not appear to respond to internal stimuli. Patientis reluctantly agreeable to exam and limited interview, when asked for more details about how his family is being hurt, the patient states I don't want to talk about it. SKIN: Warm, dry, color appropriate, normal turgor. No rashes noted. Results Labs Reviewed CBC WITH AUTO DIFFERENTIAL - Abnormal Result Value WBC 11.0 (*) RBC 5.00 Hemoglobin 15.5 Hematocrit 46.3 MCV 93.2 MCH 31.2 MCHC 33.5 RDW 13.1 Platelets 232 MPV 10.6 NRBC 0.0 NRBC Absolute 0.00 Neutrophils Relative 51.0 Lymphocytes Relative 36.9 Monocytes Relative 7.4 Eosinophils Relative 4.0 Basophils Relative 0.5 Immature Granulocytes Relative 0.2 Neutrophils Absolute 5.59 Lymphocytes Absolute 4.04 Monocytes Absolute 0.81 Eosinophils Absolute 0.44 Basophils Absolute 0.05 Immature Granulocytes Absolute 0.02 ACETAMINOPHEN LEVEL - Abnormal Acetaminophen Level <2.0 (*) COMPREHENSIVE METABOLIC PANEL - Normal Sodium 141 Potassium 3.8 Chloride 106 CO2 26 Anion Gap 9 Glucose 81 BUN 9 Creatinine 0.83 eGFR 117 BUN/Creatinine Ratio 10.8 Calcium 9.1 AST (SGOT) 36 ALT (SGPT) 36 Alkaline Phosphatase 65 Total Protein 6.4 Albumin 3.8 Total Bilirubin 0.5 ETHANOL - Normal Ethanol Level 4 SALICYLATE LEVEL - Normal Salicylate Level 3.1 CBC AND DIFFERENTIAL Narrative: The following orders were created for panel order CBC and differential. Procedure Abnormality Status --------- ------ CBC auto differential[[id number]] Abnormal Final result Please view results for these tests on the individual orders. Abnormal Labs Reviewed CBC WITH AUTO DIFFERENTIAL - Abnormal; Notable for the following components: Result Value WBC 11.0 (*) All other components within normal limits ACETAMINOPHEN LEVEL - Abnormal; Notable for the following components: Acetaminophen Level <2.0 (*) All other components within normal limits No orders to display I have discussed any resulted incidental/abnormal imaging and/or lab abnormalities with the patientand have instructed them of the need for further evaluation and workup with their primary care doctor. All available laboratory results, imaging results and other diagnostic exam results were reviewed in the EMR. EKG Interpretation Critical Care Time None ? Medical Decision Making The patient is a 34-year-old male presenting to the ED for mental health evaluation reporting increased anxiety from the fear that his family is being harmed. Patient lives in a halfway and is unable to provide any evidence that his family is being harmed, patient refuses to speak further when asked for more details. The patient's exam is benign, no acute findings. Will attempt to obtain laboratory evaluation and facilitate crisis evaluation. ED Course as of 01/10/25735 Sat Jan 09, 2025 0731 I, Dr. Stephen Hernandez, have received signout for this patient from Dr Crystal at a 0700 hours. The patient is currently pending crisis eval. patient cleared by crisis and discharged during my shift..[MG] ED Course User Index [MG] Julián Hernandez MD Clinical Impressions as of 01/10/25735 Hallucinations Anxiety disorder, unspecified type Medications LORazepam (ATIVAN) tablet 0.5 mg (0.5 mg oral Given 01/09/25 0640) Procedures Procedures Diagnosis 1. Anxiety disorder, unspecified type 2. Hallucinations Disposition Discharge ED Prescriptions None Physician Attestation MARCO ANTONIO Perea 01/09/25516 MARCO ANTONIO Perea 01/09/25728 MARCO ANTONIO Perea 01/10/25735 Cosigned by Alberta Crystal MD at 01/10/2025 7:49 AM EDT documented in this encounter Consult Notes * Manju Lowry LCSW - 01/09/2025 8:04 AM EDTAssociated Order(s): IP CONSULT TO LAYAWAY CLERK Images from the original note were not included. Behavioral Health Services - Crisis Assessment Important times Time of arrival: 01/09/25416 Time of referral: 01/09/25519 Time of readiness: 01/09/25519 Time assessment started: 01/09/25744 Time of disposition: 01/09/25844 Location: [facility] Consulted case with: ELIAN Barfield Insurance information: Insurance: [employer] - Medicare A & B Verified by: Manju Lowry LCSW Reason for Consultation / Presenting Problem: Sean Buchanan is being seen today for a consultive service at the request of Julián Hernandez MD to assess risk and identify appropriate level of care. Patient is a 34 year old male being assessed by Behavioral Health due to auditory hallucinations reported to the staff at his halfway. Patient reports that he was hearing the voices from the TV and radio. At time of assessment patient denied auditory hallucination and reports that he was anxious and needed medication for his anxiety. Patient reports that he was diagnosed with anxiety but he is not being treated medically for it. Patient reports that he typically treat his anxiety by smoking tobacco. Patient reports that he lived in the halfway for the past 2 months and lived in another halfway prior to that. Patient reports a history of marijuana use and none family history of mental health illness. Patient reports that he feels better now and feels safe returning to the halfway.Patient denies suicidal ideation, homicidal ideation, visual hallucination and auditory hallucination. Patient reports that his sleep and appetite are good. History of Present Illness: Sean is a 34 y.o. male with Chief Complaint Patient presents with Psychiatric Evaluation Hearing voices Social/Educational History: Guardian - if Yes, provide contact information: n/a Status: n/a State Agency Involvement: n/a Papo's Order: n/a Marital Status: single Alternative Placement Details: n/a Living Situation for patient: Residential Patient reports living in a halfway at [address] [place] [address] Household Members/Age: n/a Friendships/Family/Social Peer Support/Relationships: None reported Highest level of education: Did not graduate high school. Comments (Include Learning Needs): none reported Occupation: Disabled Employment/Extracurricular Activities/Hobbies: Patient supports himself financially through SSI Limitations of Daily Activities: none reported Strengths/Supports: Patient can advocate for his needs Collaterals, contact information, and engagement level: Therapist: None reported Psychiatrist: Patient reports that he has a Provider but the name not reported PCP: None reported Family: None reported Other: None reported Mental Status Speech: WNL Eye Contact: Intermittent Motor Activity: WNL Mood: Pleasant Affect: Appropriate Sleep: WNL Appetite: WNL Memory: WNL Attention / Concentration: WNL Behavior: Cooperative and Calm Appearance: Hallucinations: None Delusions: None Thought Content: WNL SI: Denied HI: Denied Thought Process: WNL Orientation Impairment: None Insight: Fair Judgment: Fair Impulse Control: Fair Substance Use History (Including family history): Patient reports a history of cannabinoids use Utox Results: None reported - Patient refuse tox screen Substance Use Treatment History: None reported Mental Health Treatment History: Outpatient Mental Health Treatment: None reported Previous or Current Psychological Diagnosis: None reported Prior Psychiatric Hospitalizations/Residential Treatment Facilities: None reported Other Comments Regarding Mental Health Treatment History: None reported Mental Health Concerns in Family: None reported Trauma History: None reported Medications: Scheduled Meds: Continuous Infusions: PRN Meds: Lorazepam Risk Assessment: Self-Harm: None Suicidal Behavior: None Homicidal Behavior: None Physical Assault: None Physical Aggression: None Property Damage: None Verbal Aggression: None Family history of suicide: None reported Protective Factors: - Patient can advocate for himself - Patient has safe living environment - Patient was clean and well groomed - Patient has active health insurance Risk Factors: - Patient is medication seeking - Patient has frequent ER visit - Patient ongoing feelings of anxiety - Patient history of Cannabinoid use Suicide Risk: Based on patient's history and current presentation, their level of risk for intentional lethal harm is considered Low Interventions: Safety assessment, Motivational interviewing, active listening, empathetic listening, brief counseling, psychoeducation, support, safety planning Response to interventions: Patient responded well to the intervention; he was calm, cooperative, and welcomed additional help. DSM-5TR Diagnosis: F41.9 Unspecified Anxiety Disorder Plan: Given the above information, it is in my clinical opinion that the patient does not present as an immediate risk to himself or others and does not meet the criteria for inpatient level of care. Patient would benefit from continuing to work with current outpatient providers. Recommendations were discussed with requesting provider. It was a pleasure to assist Sean Buchanan here at [facility]. This report is written and finalized by: Manju Lowry LCSW Behavioral Health Specialist [facility] (Tel): [phone] / : [phone] documented in this encounter Plan of Treatment Not on file documented as of this encounter Procedures Procedure Name Priority Date/Time Associated Diagnosis Comments CBC WITH AUTO DIFFERENTIAL STAT 01/09/2025 6:41 AM EDT CBC AND DIFFERENTIAL STAT 01/09/2025 6:41 AM EDT ETHANOL STAT 01/09/2025 6:41 AM EDT ACETAMINOPHEN LEVEL STAT 01/09/2025 6 :41 AM EDT SALICYLATE LEVEL STAT 01/09/2025 6:41 AM EDT COMPREHENSIVE METABOLIC PANEL STAT 01/09/2025 6:41 AM EDT documented in this encounter Results * Salicylate level (01/09/2025 6:41 AM EDT) Salicylate Level 3.1 2.0 - 29.0 mg/dL LAB CHEMISTRY METHOD 01/09/2025 8:48 AM EDT [facility] Blood Venous blood specimen / Unknown Venipuncture / Unknown 01/09/2025 6:41 AM EDT 01/09/2025 8:08 AM EDT us Sreekanth BERNARD LAB BLOOD ORDERABLES Final Resul t Performing Organization Address [facility] de Phone Number [facility] [address] [place] [address], [place] [phone] * (ABNORMAL) Acetaminophen level (01/09/2025 6:41 AM EDT) Acetaminophen Level <2.0(L) 10.0 - 30.0 mcg/mL LAB CHEMISTRY METHOD 01/09/2025 8:48 AM EDT [facility] Blood Venous blood specimen / Unknown Venipuncture / Unknown 01/09/2025 6:41 AM EDT 01/09/2025 8:08 AM EDT us Sreekanth BERNARD LAB BLOOD ORDERABLES Final Resul t Performing Organization Address [facility] de Phone Number [facility] [address] [place] [address], [place] [phone] * Ethanol (01/09/2025 6:41 AM EDT) Ethanol Level 4 0 - 10 mg/dL LAB CHEMISTRY METHOD 01/09/2025 8:39 AM EDT [facility] Blood Venous blood specimen / Unknown Venipuncture / Unknown 01/09/2025 6:41 AM EDT 01/09/2025 8:08 AM EDT us Sreekanth BERNARD LAB BLOOD ORDERABLES Final Resul t Performing Organization Address [facility] de Phone Number [facility] [address] [place] [address], [place] [phone] * (ABNORMAL) CBC auto differential (01/09/2025 6:41 AM EDT) WBC 11.0(H) 4.8 - 10.8 K/mcL LAB HEMETOLOGY METHOD 01/09/2025 8:21 AM [facility] RBC 5.00 4.50 - 5.50 M/mcL LAB HEMETOLOGY METHOD 01/09/2025 8:21 AM [facility] Hemoglobin 15.5 13.5 - 17.5 g/dL LAB HEMETOLOGY METHOD 01/09/2025 8:21 AM [facility] Hematocrit 46.3 42.0 - 54.0 % LAB HEMETOLOGY METHOD 01/09/2025 8:21 AM [facility] MCV 93.2 79.0 - 98.0 FL LAB HEMETOLOGY METHOD 01/09/2025 8:21 AM [facility] MCH 31.2 27.0 - 32.0 pcg LAB HEMETOLOGY METHOD 01/09/2025 8:21 AM [facility] MCHC 33.5 32.0 - 37.0 g/dL LAB HEMETOLOGY METHOD 01/09/2025 8:21 AM [facility] RDW 13.1 11.0 - 15.0 % LAB HEMETOLOGY METHOD 01/09/2025 8:21 AM [facility] Platelets 232 130 - 400 K/mcL LAB HEMETOLOGY METHOD 01/09/2025 8:21 AM [facility] MPV 10.6 7.0 - 11.0 FL LAB HEMETOLOGY METHOD 01/09/2025 8:21 AM [facility] NRBC 0.0 <1.0 % LAB HEMETOLOGY METHOD 01/09/2025 8:21 AM [facility] NRBC Absolute 0.00 <0.10 K/mcL LAB HEMETOLOGY METHOD 01/09/2025 8:21 AM [facility] Neutrophils Relative 51.0 % LAB HEMETOLOGY METHOD 01/09/2025 8:21 AM [facility] Lymphocytes Relative 36.9 % LAB HEMETOLOGY METHOD 01/09/2025 8:21 AM [facility] Monocytes Relative 7.4 % LAB HEMETOLOGY METHOD 01/09/2025 8:21 AM [facility] Eosinophils Relative 4.0 % LAB HEMETOLOGY METHOD 01/09/2025 8:21 AM [facility] Basophils Relative 0.5 % LAB HEMETOLOGY METHOD 01/09/2025 8:21 AM [facility] Immature Granulocytes Relative 0.2 % LAB HEMETOLOGY METHOD 01/09/2025 8:21 AM [facility] Neutrophils Absolute 5.59 1.50 - 7.00 K/mcL LAB HEMETOLOGY METHOD 01/09/2025 8:21 AM [facility] Lymphocytes Absolute 4.04 1.00 - 5.00 K/mcL LAB HEMETOLOGY METHOD 01/09/2025 8:21 AM [facility] Monocytes Absolute 0.81 0.20 - 1.00 K/mcL LAB HEMETOLOGY METHOD 01/09/2025 8:21 AM [facility] Eosinophils Absolute 0.44 0.00 - 0.50 K/mcL LAB HEMETOLOGY METHOD 01/09/2025 8:21 AM [facility] Basophils Absolute 0.05 0.00 - 0.20 K/mcL LAB HEMETOLOGY METHOD 01/09/2025 8:21 AM [facility] Immature Granulocytes Absolute 0.02 0.00 - 0.03 K/mcL LAB HEMETOLOGY METHOD 01/09/2025 8:21 AM [facility] Blood Venous blood specimen / Unknown Venipuncture / Unknown 01/09/2025 6:41 AM EDT 01/09/2025 8:08 AM EDT us Julián Hernandez MD LAB BLOOD ORDERABLES Final Resu lt [facility] [address] [place] [address], * Comprehensive metabolic panel (01/09/2025 6:41 AM EDT) Sodium 141 133 - 145 mmol/L LAB CHEMISTRY METHOD 01/09/2025 8:39 AM [facility] Potassium 3.8 3.5 - 5.5 mmol/L LAB CHEMISTRY METHOD 01/09/2025 8:39 AM [facility] Chloride 106 96 - 110 mmol/L LAB CHEMISTRY METHOD 01/09/2025 8:39 AM [facility] CO2 26 21 - 32 mmol/L LAB CHEMISTRY METHOD 01/09/2025 8:39 AM [facility] Anion Gap 9 3 - 11 LAB CHEMISTRY METHOD 01/09/2025 8:39 AM [facility] Glucose 81 70 - 100 mg/dL LAB CHEMISTRY METHOD 01/09/2025 8:39 AM [facility] BUN 9 5 - 25 mg/dL LAB CHEMISTRY METHOD 01/09/2025 8:39 AM [facility] Creatinine 0.83 0.70 - 1.30 mg/dL LAB CHEMISTRY METHOD 01/09/2025 8:39 AM [facility] eGFR 117 >=60 mL/min/1. 73m2 LAB CHEMISTRY METHOD 01/09/2025 8:39 AM [facility] Comment:Calculation based on the??Chronic Kidney Disease Epidemiology Collaboration (CKD-EPI) equation refit??without adjustment for race. BUN/Creatinine Ratio 10.8 LAB CHEMISTRY METHOD 01/09/2025 8:39 AM [facility] Calcium 9.1 8.5 - 10.5 mg/dL LAB CHEMISTRY METHOD 01/09/2025 8:39 AM EDT [facility] AST (SGOT) 36 10 - 42 unit/L LAB CHEMISTRY METHOD 01/09/2025 8:39 AM EDT [facility] ALT (SGPT) 36 10 - 60 unit/L LAB CHEMISTRY METHOD 01/09/2025 8:39 AM EDT [facility] Alkaline Phosphatase 65 42 - 121 unit/L LAB CHEMISTRY METHOD 01/09/2025 8:39 AM EDT [facility] Total Protein 6.4 6.0 - 8.0 g/dL LAB CHEMISTRY METHOD 01/09/2025 8:39 AM [facility] Albumin 3.8 3.2 - 5.0 g/dL LAB CHEMISTRY METHOD 01/09/2025 8:39 AM [facility] Total Bilirubin 0.5 0.0 - 1.4 mg/dL LAB CHEMISTRY METHOD 01/09/2025 8:39 AM T [facility] Blood Venous blood specimen / Unknown Venipuncture / Unknown 01/09/2025 6:41 AM EDT 01/09/2025 8:08 AM EDT Julián Hernandez MD LAB BLOOD ORDERABLES Final Resu lt [facility] [address] [place] [address], documented in this encounter Visit Diagnoses Diagnosis Anxiety disorder, unspecified type- Primary Hallucinations documented in this encounter Administered Medications Inactive Administered Medications - up to 3 most recent administrations Medication Order MAR Action Action Date Dose Rate Site LORazepam (ATIVAN) tablet 0.5 mg 0.5 mg, oral, Once, On 01/09/25 at 0454, For 1 dose Given 01/09/2025 6:40 AM EDT 0.5 mg documented in this encounter Active and Recently Administered Medications Times are shown in EDT. Scheduled Medication Order 01/07/2025 01/08/2025 01/09/2025 LORazepam (ATIVAN) tablet 0.5 mg (COMPLETED) 0.5 mg, oral, Once, On 01/09/25 at 0454, For 1 dose 0640 (Given - Provid er: Flora Gomez RN - Comment: Refusing all care until now.) documented in this encounter Orders Medications Ordered That Raul ht Not Have Been Administered Count Last Ordered Date First Ordered Date LORazepam (ATIVAN) tablet 0.5 mg 1 01/10/20 Consult Count Last Ordered Date First Orde red Date IP CONSULT TO LAYAWAY CLERK 1 01/09/2025 documented in this encounter Care Teams Footwear Stitcher Relationship Specialty Start Date End Date Sreekanth Hurtado MD [address] PCP - General Psychiatry 01/01/25 documented as of this encounter
--- OUTSIDE RECORDS SUMMARY | 2025-01-11 18:51 | XMS_ITS | Encounter Summary ---
Author Organization [facility] Address [address] [place] [address] Care Team Providers Care Advertising Dispatch Clerks Supervisor Name Role Phone Sreekanth Hurtado MD Primary Care Provider [phone] Reason for Visit * Reason Comments Psychiatric Evaluation Hearing voices Encounter Details Date Type Department Care Team (Late st Contact Info) Description 01/11/2025 2:50 AM EDT - 01/11/2025 11:20 AM EDT Emergency [facility] Emergency [address] [place] [id number] Pierre Munoz, DO [address] [place] [address] Cocaine use disorder (Primary Dx); Hallucinations Discharge Disposition: Home or [...] Sign Reading Time Taken Comments Blood Pressure 112/63 01/11/2025 10:20 AM EDT Pulse 75 01/11/2025 10:20 AM EDT Temperature 36.7 ??C (98.1 ??F) 01/11/2025 10:20 AM E DT Respiratory Rate 20 01/11/2025 10:20 AM EDT Oxygen Saturation 97% 01/11/2025 10:20 AM EDT Inhaled Oxygen Concentration - - Weight 81.6 kg (180 lb) 01/11/2025 2:42 AM EDT Height 180.3 cm (5' 11 ) 01/11/2025 2:42 AM EDT Body Mass Index 25.1 01/11/2025 2:42 AM EDT documented in this encounter Functional [...] of Assessment Author No 01/01/2025 7:09 AM Chris De Souza RN documented as of this encounter Mental Status * Because of a physical, mental, or emotional condition, do you have serious difficulty concentrating, remembering, or making decisions? (5 years old or older) Answer Entry Date Author Yes 01/01/2025 7:09 AM Chris De Souza RN documented in this encounter Discharge Instructions * Attachments The following attachments cannot be sent through Care Everywhere. * Substance Use Disorder (Irish) documented in this encounter Medications at Time of Discharge acetaminophen (TYLENOL) 500 mg tablet Take 2 tablets (1,000 mg total) by mouth every 6 (six) hours if needed for mild pain for up to 10 days. 30 tablet 01/11/2025 albuterol HFA (PROAIR HFA ; PROVENTIL HFA ; VENTOLIN HFA) 90 mcg/actuation inhaler Inhale 2 puffs by mouth every 4 (four) hours if needed for wheezing. 1 each 11/19/2024 atorvastatin (LIPITOR) 10 mg tablet Take 1 [...] day. 10/21/2024 documented as of this encounter Ordered Prescriptions Prescription Sig Dispense Quantity Refills Last Filled Start Date End Date acetaminophen (TYLENOL) 500 mg tablet Take 2 tablets (1,000 mg total) by mouth every 6 (six) hours if needed for mild pain for up to 10 days. 30 tablet 01/11/2025 documented in this encounter Discharge Disposition Disposition Code Departure Means Destination Comment s Home or Self Care documented in this encounter Progress Notes * Pierre Munoz DO - 01/11/2025 10:31 AM EDT ED Course as of 01/11/25 1032 Mon Jan 11, 2025 1030 Patient seen by behavioral health clinician and cleared for safe disposition home [MC] ED Course User Index [MC] Pierre Munoz DO Clinical Impressions as of 01/11/25 1032 Cocaine use disorder Hallucinations Discharge 1. Cocaine use disorder 2. Hallucinations Procedures * Maryam Ramirez RN - 01/11/2025 2:40 AM EDT Pt to ER with complaints of hearing voices. Ongoing for 2years. Would not answer any other assessment questions during triage. documented in this encounter Consult Notes * Guero Bernstein - 01/11/2025 10:11 AM EDTAssociated Order(s): IP CONSULT TO SUPERVISOR STEFFEN HOUSE Images from the original note were not included. Behavioral Health Services - Crisis Assessment Important times Time of arrival: 02:50 Time of referral: 02:52 Time of readiness: 02:57 Time assessment started: 09:40 Time of disposition: 10:40 Location: Emergency Room (ER) Consulted case with: ELIAN Barfield Insurance information: Insurance: Medicare A+B Verified by: [employer] [place] - Guero Bernstein Reason for Consultation / Presenting Problem: Sean Buchanan is being seen today for a consultive service at the request of Pierre Munoz DO to assess risk and identify appropriate level of care. Patient arrived to [facility] due to hearing voices. His baseline is AH. Patient reported that the voiceswere of his family being killed, tortured, and raped. When asked about concerns regarding his jail, patient reported that there are no concerns and he feels safe returning home. Patient denied SI/HI/VH and reported that he is no longer hearing the voices. History of Present Illness: Sean is a 34 y.o. male with Chief Complaint Patient presents with Psychiatric Evaluation Hearing voices Social/Educational History: Guardian - if Yes, provide contact information: No [place] Status: No State Agency Involvement: No Papo's Order: No Marital Status: Single Alternative Placement Details: [facility] Living Situation for patient: Residential - Patient lives in a [facility] Household Members/Age: Patient lives in a [facility] Friendships/Family/Social Peer Support/Relationships: Patient has familial support in his sister. Highest level of education: Did not finish high school Comments (Include Learning Needs): None Occupation: Disabled Employment/Extracurricular Activities/Hobbies: Unknown Limitations of Daily Activities: None Strengths/Supports: Patient has familial support in his sister. Patient has / mental health support in his jail. Patient is able to advocate for himself. Collaterals, contact information, and engagement level: Therapist: [facility] Psychiatrist: [facility], Dr. Sreekanth Odell: - Did not contact PCP: Kaley JONES Family: Sister, Evelina Buchanan: - Sister reported that she saw patient yesterday and that patient was at baseline. She stated that patient was not expressing SI/HI and was able to be redirected from hallucinations when speaking with her, which is normal for him. Other: [facility] Usp: - [facility] called twice, nobody picked up, and no voicemail option. [facility] Set Staff Fitter, Gabe Zamudio: - [facility] left voicemail for animal humane agent supervisor requesting a call back and that [facility] is discharging patient. [facility] Director, Yancy Coates: - S left voicemail for director requesting a call back. Mental Status Speech: WNL Eye Contact: Avoidant Motor Activity: Slowed Mood: Neutral Affect: Flat Sleep: WNL Appetite: WNL Memory: Moderate Impairment Attention / Concentration: Mild Impairment Behavior: Cooperative, Withdrawn, and Calm Appearance: Hallucinations: None - Patient reported auditory hallucinations last night and denied auditory and visual hallucinations during assessment. He has hallucinations at baseline. Delusions: Patient has delusions at baseline. Thought Content: WNL SI: Denied HI: Denied Thought Process: WNL Orientation Impairment: None Insight: Poor Judgment: Poor Impulse Control: Poor Substance Use History (Including family history): Patient has a known history of using cocaine, cannabis, and tobacco. When asked about cocaine, he asked [facility] if [facility] was telling others about his cocaine use and focused on whether his jail or other people are being informed of his test results. [facility] reassured patient that his test results are confidential. Utox Results: Utox was positive for cocaine and cannabis. Substance Use Treatment History: Previous assessments report that patient has denied a history of substance use treatment. Mental Health Treatment History: Outpatient Mental Health Treatment: Patient has outpatient mental health support through jail. Previous or Current Psychological Diagnosis: Patient has been diagnosed with schizoaffective disorder, bipolar type. Prior Psychiatric Hospitalizations/Residential Treatment Facilities: Patient is known to [facility] through regular behavioral health evaluations. He has had psychiatric hospitalizations, per documentation,most recently at [facility]. Other Comments Regarding Mental Health Treatment History: None reported Mental Health Concerns in Family: None reported Trauma History: Documentation reports that patient has a history of trauma, however there are no details regarding trauma history. Medications: Scheduled Meds: Continuous Infusions: PRN Meds: Risk Assessment: Self-Harm: None Suicidal Behavior: None Homicidal Behavior: Past Physical Assault: None Physical Aggression: None Property Damage: None Verbal Aggression: None Family history of suicide: None reported Protective Factors: Patient has familial support in his sister. Patient has 29/04 mental health support in his jail. Patient is able to advocate for himself. Risk Factors: Patient has a history of regular ED visits. Patient continues to use substances. Suicide Risk: Based on patient's history and current presentation, their level of risk for intentional lethal harm is considered Low Interventions: Risk/crisis assessment, active listening, empathetic listening Response to interventions: Patient was cooperative and aligned with answering [facility]'s questions. He was woken up by [facility] and struggled with engagement in conversation beyond simple answers. DSM-5TR Diagnosis: F25.0 Schizoaffective Disorder, Bipolar Type Plan: Based on the information above, patient is clear to discharge from behavioral health services. [facility] attempted to reach out to jail multiple times regarding patient and was unable to reach jail staff. Upon discharge, patient would benefit from following up with jail staff and mentalhealth providers. Recommendations were discussed with requesting provider. It was a pleasure to assist Sean Buchanan here at [facility]. This report is written and finalized by: Guero Bernstein Behavioral Health Specialist [facility] (Tel): [phone] / : [phone] documented in this encounter Plan of Treatment Not on file documented as of this encounter Procedures Procedure Name Priority Date/Time Associated Diagnosis Comments DRUG ABUSE SCREEN 8A PANEL, URINE STAT 01/11/2025 2:56 AM EDT BUPRENORPHINE SCREEN, URINE STAT 01/11/2025 2:56 AM EDT METHADONE SCREEN, URINE STAT 01/11/2025 2:56 AM EDT PHENCYCLIDINE, URINE STAT 01/11/2025 2:56 AM EDT documented in this encounter Results * Methadone, urine (01/11/2025 2:56 AM EDT) Methadone Screen, Urine Negative Negative LAB CHEMISTRY METHOD 01/11/2025 3:57 AM EDT [facility] Comment: Assay cutoff 300 ng/mL Semi-quantitative assay for screening purposes only. Unconfirmed screening result should not be used for non-medical purposes. *ALTERNATE METHOD CONFIRMATION DONE UPON REQUEST ONLY* Urine Urine specimen obtained by clean catch procedure / Unknown Non-blood Collection / Unknown 01/11/2025 2:56 AM EDT 01/11/2025 3:35 AM EDT Sreekanth BERNARD LAB URINE ORDERABLES Final Resul t [facility] [address] [place] [address], * Phencyclidine, urine (01/11/2025 2:56 AM EDT) PCP Scrn, Ur Negative Negative LAB CHEMISTRY METHOD 01/11/2025 3:57 AM EDT [facility] Comment: Assay cutoff 25 ng/mL Semi-quantitative assay for screening purposes only. Unconfirmed screening result should not be used for non-medical purposes. *ALTERNATE METHOD CONFIRMATION DONE UPON REQUEST ONLY* Urine Urine specimen obtained by clean catch procedure / Unknown Non-blood Collection / Unknown 01/11/2025 2:56 AM EDT 01/11/2025 3:35 AM EDT Sreekanth BERNARD LAB URINE ORDERABLES Final Resul t Performing Organization Address [facility]/State/ZIP Co de Phone Number [facility] [address] [place] [address], [place] [phone] * Buprenorphine screen, urine (01/11/2025 2:56 AM EDT) Buprenorphine Screen Urine Negative Negative LAB CHEMISTRY METHOD 01/11/2025 3:57 AM EDT [facility] Urine Urine specimen obtained by clean catch procedure / Unknown Non-blood Collection / Unknown 01/11/2025 2:56 AM EDT 01/11/2025 3:35 AM EDT Narrative [facility] - 01/11/2025 3:57 AM EDT Assay cutoff 5 ng/mL Semi-quantitative assay for screening purposes only. Unconfirmed screening result should not be used for non-medical purposes. *ALTERNATE METHOD CONFIRMATION DONE UPON REQUEST ONLY* Sreekanth BERNARD LAB URINE ORDERABLES Final Resul t Performing Organization Address [facility]/ZIP Co de Phone Number [facility] [address] [place] [address], [place] [phone] * (ABNORMAL) Drug abuse screen 8a panel, urine (01/11/2025 2:56 AM EDT) Amphetamine Screen, Ur Negative Negative LAB CHEMISTRY METHOD 3:57 AM EDT [facility] Comment:Certain OTC medicati ons containing ephedrine, phenylephrine, pseudoephedrine and phenylpropanolamine can cause false positive results. Barbiturate Screen, Ur Negative Negative LAB CHEMISTRY METHOD 5 3:57 AM EDT [facility] Benzodiazepine Screen, Ur Negative Negative LAB CHEMISTRY METHOD 3:57 AM EDT [facility] Cocaine Screen, Ur Positive(A ) Negative LAB CHEMISTRY METHOD 3:57 AM EDT [facility] Opiate Screen, Ur Negative Negative LAB CHEMISTRY METHOD 5 3:57 AM EDT [facility] Cannabinoid (THC) Screen, Ur Positive(A ) Negative LAB CHEMISTRY METHOD 5 3:57 AM EDT [facility] Comment:Specimens from patie nts taking pantoprazole sodium (Protonix) have been shown to produce false positive results. Oxycodone Screen, Ur Negative Negative LAB CHEMISTRY METHOD 5 3:57 AM EDT [facility] Fentanyl, Ur Negative Negative LAB CHEMISTRY METHOD 5 3:57 AM EDT [facility] Urine Urine specimen obtained by clean catch procedure / Unknown Non-blood Collection / Unknown 01/11/2025 2:56 AM EDT 01/11/2025 3:35 AM EDT Narrative [facility] - 01/11/2025 3:57 AM EDT Assay cutoffs: Amphetamines ? 1000 ng/mL Barbiturates ?200 ng/mL Benzodiazepines ?? 200 ng/mL Cocaine ? 300 ng/mL Fentanyl ?1 ng/mL Opiates ? 300 ng/mL Oxycodone ? 100 ng/mL THC ?50 ng/mL Semi-quantitative assay for screening purposes only. Unconfirmed screening result should not be used for non-medical purposes. *ALTERNATE METHOD CONFIRMATION DONE UPON REQUEST ONLY* us Sreekanth BERNARD LAB URINE ORDERABLES Final Resul t [facility] [address] [place] [address], documented in this encounter Visit Diagnoses Diagnosis Cocaine use disorder- Primary Hallucinations documented in this encounter Administered Medications Inactive Administered Medications - up to 3 most recent administrations Medication Order MAR Action Action Date Dose Rate Site acetaminophen (TYLENOL) tablet 1,000 mg 1,000 mg, oral, Once, On 01/11/25 at 0644, For 1 dose Given 01/11/2025 6:49 AM EDT 1,000 mg documented in this encounter Active and Recently Administered Medications Times are shown in EDT. Scheduled Medication Order 01/09/2025 01/10/2025 01/11/2025 acetaminophen (TYLENOL) tablet 1,000 mg (COMPLETED) 1,000 mg, oral, Once, On Sat01/11/25 at 0644, For 1 dose 0649 (Given - Provid er: Alice Victor RN) documented in this encounter Orders Medications Ordered That Raul ht Not Have Been Administered Count Last Ordered Date First Ordered Date acetaminophen (TYLENOL) tablet 1,000 mg 1 0 01/11/2025 Consult Count Last Ordered Date First Orde red Date IP CONSULT TO SUPERVISOR [employer]FFEN [employer]SE 1 01/11/2025 documented in this encounter Care Teams Advertising Dispatch Clerks Supervisor Relationship Specialty Start Date End Date Sreekanth Hurtado MD [address] PCP - General Psychiatry 01/01/25 documented as of this encounter
--- OUTSIDE RECORDS SUMMARY | 2025-01-11 18:51 | XMS_ITS | Clinical Summary ---
Author Organization [facility] Address [address] [place] [address] Phone Care Team Providers Care Publications Distribution Clerk Name Role Phone Sreekanth Hurtado MD Primary Care Provider [phone] Allergies Active Allergy Reactions Criticality Noted Date Comments Clozapine Neutropenia Medium 09/30/2024 Droperidol 11/17/2024 ?acute dystonic reaction Haloperidol Unknown 09/30/2024 many years ago...they had to give me Benadryl and I had to sit upright by a window Quetiapine Unknown 09/30/2024 Trazodone Unknown 09/30/2024 Mentioned in pt's med list from assisted Medications atorvastatin (LIPITOR) 10 mg tablet Take 1 tablet (10 mg total) by mouth at bedtime. 4 Active levothyroxine (SYNTHROID, LEVOTHROID) 75 mcg tablet Take 1 tablet (75 mcg total) by mouth 1 (one) time each day before breakfast. 4 Active lithium (ESKALITH) 450 mg CR tablet Take 2 tablets (900 mg total) by mouth at bedtime. 4 Active buPROPion XL (WELLBUTRIN XL) 150 mg 24 hr tablet Take 1 tablet (150 mg total) by mouth 1 (one) time each day. 4 Active divalproex (DEPAKOTE) [address] tablet Take 3 tablets (1,500 mg total) by mouth at bedtime. 5 Active pantoprazole (PROTONIX) 40 mg EC tablet Take 1 tablet (40 mg total) by mouth 1 (one) time each day before breakfast. Active risperiDONE (RisperDAL) 2 mg tablet Take 1 tablet (2 mg total) by mouth 1 (one) time each day. 5 Active OLANZapine (ZyPREXA ZYDIS) 20 mg disintegrating tablet Dissolve 30 mg on top of the tongue at bedtime. Active benztropine (COGENTIN) 1 mg tablet Take 1 tablet (1 mg total) by mouth 2 (two) times a day. Active albuterol HFA (PROAIR HFA ; PROVENTIL HFA ; VENTOLIN HFA) 90 mcg/actuation inhaler Inhale 2 puffs by mouth every 4 (four) hours if needed for wheezing. 1 each 5 Active nicotine polacrilex (NICORETTE) [address] 1 each (4 mg total) into mouth between cheek and gum every 1 (one) hour if needed for smoking cessation (patient needs while inpatient and in the ED - smokes well over a pack per day). 5 Active acetaminophen (TYLENOL) 500 mg tablet Take 2 tablets (1,000 mg total) by mouth every 6 (six) hours if needed for mild pain for up to 10 days. 30 tablet 5 01/22/20 25 Active Encounters Date Type Department Care Team Description 01/11/2025 2:50 AM EDT - 01/11/2025 11:20 AM EDT [facility] [address] [place] [phone] Pierre Munoz DO Cocaine use disorder (Primary Dx); Hallucinations Discharge Disposition: Home or Self Care 01/11/2025 1:42 AM EDT - 01/11/2025 2:11 AM EDT [facility] [address] [place] [phone] Discharge Disposition: Home or Self Care 01/09/2025 4:14 AM EDT - 01/09/2025 9:08 AM EDT [facility] [address] [place] [phone] Julián Hernandez MD Anxiety disorder, unspecified type (Primary Dx); Hallucinations Discharge Disposition: Home or Self Care 01/04/2025 7:06 AM EDT - 01/04/2025 9:08 AM EDT [facility] [address] [place] [phone] Loren Morelos DO Paranoia (CMS/HCC) (Primary Dx) Discharge Disposition: Home or Self Care 01/01/2025 12:36 AM EDT - 01/01/2025 1:55 PM EDT [facility] [address] [place] [phone] Alberta Crystal MD Patel, Parth B, MD Crack cocaine use (Primary Dx); Anxiety Discharge Disposition: Home or Self Care 12/27/2024 11:31 PM EDT - 12/28/2024 3:48 AM EDT [facility] [address] [place] [phone] Discharge Disposition: Home or Self Care 12/15/2024 1:42 AM EDT - 12/15/2024 8:07 AM EDT [facility] [address] [place] [phone] Discharge Disposition: Home or Self Care 11/24/2024 9:01 PM EST - 11/25/2024 11:01 AM [facility] [address] [place] [phone] Loren Morelos DO Millay, Scot A, MD Durkin, Louis J, MD Schizoaffective disorder, bipolar type (CMS/HCC) (Primary Dx); Auditory hallucination Discharge Disposition: Home or Self Care 11/19/2024 1:09 AM EST - 11/19/2024 10:46 AM [facility] [address] [place] [phone] Alberta Crystal MD Landry, Jonathan P, MD Schizoaffective disorder, bipolar type (CMS/HCC) (Primary Dx); Polysubstance use disorder; RSV bronchitis; Homicidal ideations; Hallucinations Discharge Disposition: Home or Self Care 11/17/2024 3:50 AM EST - 11/17/2024 12:15 PM [facility] [address] [place] [phone] Abel Mistry MD Cauchon, Matthew C, DO Goebel, Mathew, MD Schizoaffective disorder, bipolar type (CMS/HCC) (Primary Dx); Homicidal ideation; Auditory hallucinations; Schizoaffective disorder, unspecified type (CMS/HCC) Discharge Disposition: Home or Self Care 10/29/2024 9:29 PM EST - 10/30/2024 9:50 AM EST Emergency [facility] Emergency [address] [place] [phone] Nakul Grullon MD Schizoaffective disorder, bipolar type (CMS/HCC) (Primary Dx); Auditory hallucinations Discharge Disposition: Home or Self Care 10/27/2024 11:32 AM EST - 10/27/2024 1:09 PM EST [facility] [address] [place] [phone] Pierre Munoz DO Anxiety (Primary Dx) Discharge Disposition: Home or Self Care from Last 3 Months Medical History Medical History Date Comments Disease of thyroid gland Bipolar 1 disorder (CMS/HCC) Schizo affective schizophrenia (CMS/HCC) Social History Tobacco Use Types Packs/Day Years Used Date Smoking Tobacco: Some Days Cigarettes Tobacco Cessation:Ready to Q uit: Not Asked; Counseling Given: Not Answered Sex and Gender Information Value Date Recorded Sex Assigned at Male 09/30/2024 4:45 AM EST Legal Sex Male 3:36 AM EST Gender Identity Male 09/30/2024 4:45 AM EST Sexual Orientation Straight 10/29/2024 10 :30 PM EST Obstetrics History Last Filed Vital Signs Vital Sign Reading [...] Mass Index 25.1 01/11/2025 2:42 AM EDT Plan of Treatment Health Maintenance Due Date Last Done Comments DTaP,Tdap,and Td Vaccines (1 - Tdap) 2008 Hepatitis B Vaccines (1 of 3 - 19+ 3-dose series) 2008 Pneumococcal Vaccine: Pediat rics (0 to 5 Years) and At-Risk Patients (6 to 64 Years) (1 of 2 - PCV) 2008 Cholesterol Screening (Lipid Panel) 09/09/2022 Depression Screening 09/09/2022 HIV Screening 09/09/2022 Hepatitis C Screening 09/09/2022 Medicare Annual Wellness Visit 09/09/2022 Social Influencers of Health Screening 09/09/2022 COVID-19 Vaccine ( - 2023-2 5 season) 2024 Influenza Vaccine (Season Ended) 2025 HIB Vaccines Aged Out No longer eligi ble based on patient's age to complete this topic HPV Vaccines Aged Out No longer eligi ble based on patient's age to complete this topic Hepatitis A Vaccines Aged Out No long er eligible based on patient's age to complete this topic IPV Vaccines Aged Out No longer eligi ble based on patient's age to complete this topic MMR Vaccines Aged Out No longer eligi ble based on patient's age to complete this topic Meningococcal ACWY Vaccine Aged Out N o longer eligible based on patient's age to complete this topic Meningococcal B Vaccine Aged Out No l onger eligible based on patient's age to complete this topic RSV Immunization Patients Un arie 20 months Aged Out No longer eligible b ased on patient's age to complete this topic Varicella Vaccines Aged Out No longer eligible based on patient's age to complete this topic Procedures Procedure Name Priority Date/Time Associated Diagnosis Comments METHADONE SCREEN, URINE STAT 01/11/2025 2:56 AM EDT PHENCYCLIDINE, URINE STAT 01/11/2025 2:56 AM EDT BUPRENORPHINE SCREEN, URINE STAT 01/11/2025 2:56 AM EDT DRUG ABUSE SCREEN 8A PANEL, URINE STAT 01/11/2025 2:56 AM EDT SALICYLATE LEVEL STAT 01/09/2025 6:41 AM EDT ACETAMINOPHEN LEVEL STAT 01/09/2025 6 :41 AM EDT ETHANOL STAT 01/09/2025 6:41 AM EDT CBC WITH AUTO DIFFERENTIAL STAT 01/09/2025 6:41 AM EDT COMPREHENSIVE METABOLIC PANEL STAT 01/09/2025 6:41 AM EDT CBC AND DIFFERENTIAL STAT 01/09/2025 6:41 AM EDT CBC WITH AUTO DIFFERENTIAL STAT 01/01/2025 12:46 AM EDT SALICYLATE LEVEL STAT 01/01/2025 12:4 6 AM EDT ACETAMINOPHEN LEVEL STAT 01/01/2025 1 2:46 AM EDT ETHANOL STAT 01/01/2025 12:46 AM EDT COMPREHENSIVE METABOLIC PANEL STAT 01/01/2025 12:46 AM EDT CBC AND DIFFERENTIAL STAT 01/01/2025 12:46 AM EDT LITHIUM LEVEL STAT Add-on 11/24/2024 9:21 PM EST CBC WITH AUTO DIFFERENTIAL STAT 11/24/2024 9:21 PM EST SALICYLATE LEVEL STAT 11/24/2024 9:21 PM EST ACETAMINOPHEN LEVEL STAT 11/24/2024 9 :21 PM EST ETHANOL STAT 11/24/2024 9:21 PM EST COMPREHENSIVE METABOLIC PANEL STAT 11/24/2024 9:21 PM EST CBC AND DIFFERENTIAL STAT 11/24/2024 9:21 PM EST [id number], RSV, FLU A AND B QUALITATIVE RT-PCR, INTERNAL LAB STAT 11/19/2024 2:56 AM EST CBC WITH AUTO DIFFERENTIAL STAT 11/19/2024 1:28 AM EST SALICYLATE LEVEL STAT 11/19/2024 1:28 AM EST ACETAMINOPHEN LEVEL STAT 11/19/2024 1 :28 AM EST ETHANOL STAT 11/19/2024 1:28 AM EST COMPREHENSIVE METABOLIC PANEL STAT 11/19/2024 1:28 AM EST CBC AND DIFFERENTIAL STAT 11/19/2024 1:28 AM EST METHADONE SCREEN, URINE STAT 11/19/2024 1:19 AM EST PHENCYCLIDINE, URINE STAT 11/19/2024 1:19 AM EST BUPRENORPHINE SCREEN, URINE STAT 11/19/2024 1:19 AM EST DRUG ABUSE SCREEN 8A PANEL, URINE STAT 11/19/2024 1:19 AM EST METHADONE SCREEN, URINE STAT 11/17/2024 10:57 AM EST PHENCYCLIDINE, URINE STAT 11/17/2024 10:57 AM EST BUPRENORPHINE SCREEN, URINE STAT 11/17/2024 10:57 AM EST DRUG ABUSE SCREEN 8A PANEL, URINE STAT 11/17/2024 10:57 AM EST LITHIUM LEVEL STAT Add-on 11/17/2024 8:03 AM EST VALPROIC ACID LEVEL, TOTAL Add-On 11/17/2024 8:03 AM EST CBC WITH AUTO DIFFERENTIAL STAT 11/17/2024 8:03 AM EST SALICYLATE LEVEL STAT 11/17/2024 8:03 AM EST ACETAMINOPHEN LEVEL STAT 11/17/2024 8 :03 AM EST ETHANOL STAT 11/17/2024 8:03 AM EST COMPREHENSIVE METABOLIC PANEL STAT 11/17/2024 8:03 AM EST CBC AND DIFFERENTIAL STAT 11/17/2024 8:03 AM EST TIGER TOP URINE TUBE Routine 10/29/2024 10:29 PM EST EXTRA TUBES Routine 10/29/2024 10:29 PM EST METHADONE SCREEN, URINE STAT 10/29/2024 10:29 PM EST PHENCYCLIDINE, URINE STAT 10/29/2024 10:29 PM EST BUPRENORPHINE SCREEN, URINE STAT 10/29/2024 10:29 PM EST DRUG ABUSE SCREEN 8A PANEL, URINE STAT 10/29/2024 10:29 PM EST from Last 3 Months Results * (ABNORMAL) Drug abuse screen 8a panel, urine (01/11/2025 2:56 AM EDT) Only the most recent of4 resultswithin the time period is included. Amphetamine Screen, Ur Negative Negative LAB CHEMISTRY METHOD 3:57 AM EDT [facility] Comment:Certain OTC medicati ons containing ephedrine, phenylephrine, pseudoephedrine and phenylpropanolamine can cause false positive results. Barbiturate Screen, Ur Negative Negative LAB CHEMISTRY METHOD 3:57 AM EDT [facility] Benzodiazepine Screen, Ur Negative Negative LAB CHEMISTRY METHOD 5 3:57 AM EDT [facility] Cocaine Screen, Ur Positive(A ) Negative LAB CHEMISTRY METHOD 5 3:57 AM EDT [facility] Opiate Screen, Ur Negative Negative LAB CHEMISTRY METHOD 5 3:57 AM [facility] Cannabinoid (THC) Screen, Ur Positive(A ) Negative LAB CHEMISTRY METHOD 5 3:57 AM EDT [facility] Comment:Specimens from patie nts taking pantoprazole sodium (Protonix) have been shown to produce false positive results. Oxycodone Screen, Ur Negative Negative LAB CHEMISTRY METHOD 5 3:57 AM [facility] Fentanyl, Ur Negative Negative LAB CHEMISTRY METHOD 5 3:57 AM [facility] Urine Urine specimen obtained by clean catch procedure / Unknown Non-blood Collection / Unknown 01/11/2025 2:56 AM EDT 01/11/2025 3:35 AM EDT Narrative [facility] - 01/11/2025 3:57 AM [...] B[facility] LAB URINE ORDERABLES Final Resul t [facility] [address] [place] [address], * Buprenorphine screen, urine (01/11/2025 2:56 AM EDT) Only the most recent of4 resultswithin the time period is included. Buprenorphine Screen Urine Negative Negative LAB CHEMISTRY METHOD 01/11/2025 3:57 AM EDT [facility] Urine Urine specimen obtained by clean catch procedure / Unknown Non-blood Collection / Unknown 01/11/2025 2:56 AM EDT 01/11/2025 3:35 AM EDT Narrative [facility] - 01/11/2025 3:57 AM EDT Assay cutoff 5 ng/mL Semi-quantitative assay for screening purposes only. Unconfirmed screening result should not be used for non-medical purposes. *ALTERNATE METHOD CONFIRMATION DONE UPON REQUEST ONLY* Sreekanth BERNARD LAB URINE ORDERABLES Final Resul t Performing Organization Address City/[facility]/ZIP Co de Phone Number [facility] [address] [place] [address], [place] [phone] * Methadone, urine (01/11/2025 2:56 AM EDT) Only the most recent of4 resultswithin the time period is included. [facility] Methadone Screen, Urine Negative Negative LAB CHEMISTRY METHOD 01/11/2025 3:57 AM EDT [facility] Comment: Assay cutoff 300 ng/mL Semi-quantitative assay for screening purposes only. Unconfirmed screening result should not be used for non-medical purposes. *ALTERNATE METHOD CONFIRMATION DONE UPON REQUEST ONLY* Urine Urine specimen obtained by clean catch procedure / Unknown Non-blood Collection / Unknown 01/11/2025 2:56 AM EDT 01/11/2025 3:35 AM EDT us Sreekanth BERNARD LAB URINE ORDERABLES Final Resul t Performing Organization Address City/[facility]/ZIP Co de Phone Number [facility] [address] [place] [address], [place] [phone] * Phencyclidine, urine (01/11/2025 2:56 AM EDT) Only the most recent of4 resultswithin the time period is included. [facility] PCP Scrn, Ur Negative Negative LAB CHEMISTRY METHOD 01/11/2025 3:57 AM EDT [facility] Comment: Assay cutoff 25 ng/mL Semi-quantitative assay for screening purposes only. Unconfirmed screening result should not be used for non-medical purposes. *ALTERNATE METHOD CONFIRMATION DONE UPON REQUEST ONLY* Urine Urine specimen obtained by clean catch procedure / Unknown Non-blood Collection / Unknown 01/11/2025 2:56 AM EDT 01/11/2025 3:35 AM EDT Sreekanth BERNARD LAB URINE ORDERABLES Final Resul t [facility] [address] [place] [address], [place] [phone] * (ABNORMAL) CBC auto differential (01/09/2025 6:41 AM EDT) Only the most recent of5 resultswithin the time period is included. [facility] WBC 11.0(H) 4.8 - 10.8 K/mcL LAB HEMETOLOGY METHOD 01/09/2025 8:21 AM EDT [facility] RBC 5.00 4.50 - 5.50 M/mcL LAB HEMETOLOGY METHOD 01/09/2025 8:21 AM EDT [facility] Hemoglobin 15.5 13.5 - 17.5 g/dL LAB HEMETOLOGY METHOD 01/09/2025 8:21 AM EDT [facility] Hematocrit 46.3 42.0 - 54.0 % LAB HEMETOLOGY METHOD 01/09/2025 8:21 AM [facility] MCV 93.2 79.0 - 98.0 FL LAB [facility]ETOLOGY [facility]25 [facility] MCH 31.2 27.0 - 32.0 pcg LAB HEMETOLOGY METHOD 01/09/2025 8:21 AM [facility] MCHC 33.5 32.0 - 37.0 g/dL LAB HEMETOLOGY METHOD 01/09/2025 8:21 AM [facility] RDW 13.1 11.0 - 15.0 % LAB HEMETOLOGY METHOD 01/09/2025 8:21 AM [facility] Platelets 232 130 - 400 K/mcL LAB HEMETOLOGY METHOD 01/09/2025 8:21 AM [facility] MPV 10.6 7.0 - 11.0 FL LAB HEMETOLOGY METHOD 01/09/2025 8:21 AM [facility] NRBC 0.0 <1.0 % LAB HEMETOLOGY METHOD 01/09/2025 8:21 AM [facility] NRBC Absolute 0.00 <0.10 K/mcL LAB HEMETOLOGY METHOD 01/09/2025 8:21 AM [facility] Neutrophils Relative 51.0 % LAB HEMETOLOGY METHOD 01/09/2025 8:21 AM [facility] Lymphocytes Relative 36.9 % LAB HEMETOLOGY METHOD 01/09/2025 8:21 AM [facility] Monocytes Relative 7.4 % LAB HEMETOLOGY METHOD 01/09/2025 8:21 AM [facility] Eosinophils Relative 4.0 % LAB HEMETOLOGY METHOD 01/09/2025 8:21 AM [facility] Basophils Relative 0.5 % LAB HEMETOLOGY METHOD 01/09/2025 8:21 AM [facility] Immature Granulocytes Relative 0.2 % LAB HEMETOLOGY METHOD 01/09/2025 8:21 AM [facility] Neutrophils Absolute 5.59 1.50 - 7.00 K/mcL LAB HEMETOLOGY METHOD 01/09/2025 8:21 AM EDT [facility] Lymphocytes Absolute 4.04 1.00 - 5.00 K/mcL LAB HEMETOLOGY METHOD 01/09/2025 8:21 AM EDT [facility] Monocytes Absolute 0.81 0.20 - 1.00 K/mcL LAB HEMETOLOGY METHOD 01/09/2025 8:21 AM EDT [facility] Eosinophils Absolute 0.44 0.00 - 0.50 K/mcL LAB HEMETOLOGY METHOD 01/09/2025 8:21 AM EDT [facility] Basophils Absolute 0.05 0.00 - 0.20 K/mcL LAB HEMETOLOGY METHOD 01/09/2025 8:21 AM EDT [facility] Immature Granulocytes Absolute 0.02 0.00 - 0.03 K/mcL LAB HEMETOLOGY METHOD 01/09/2025 8:21 AM EDT [facility] Blood Venous blood specimen / Unknown Venipuncture / Unknown 01/09/2025 6:41 AM EDT 01/09/2025 8:08 AM EDT Julián Hernandez MD LAB BLOOD ORDERABLES Final Resu lt [facility] [address] [place] [address], * Ethanol (01/09/2025 6:41 AM EDT) Only the most recent of5 resultswithin the time period is included. Ethanol Level 4 0 - 10 mg/dL LAB CHEMISTRY METHOD 01/09/2025 8:39 AM EDT [facility] Blood Venous blood specimen / Unknown Venipuncture / Unknown 01/09/2025 6:41 AM EDT 01/09/2025 8:08 AM EDT Sreekanth BERNARD LAB BLOOD ORDERABLES Final Resul t Performing Organization Address City/[facility]/ZIP Co de Phone Number [facility] [address] [place] [address], [place] [phone] * (ABNORMAL) Acetaminophen level (01/09/2025 6:41 AM EDT) Only the most recent of5 resultswithin the time period is included. Acetaminophen Level <2.0(L) 10.0 - 30.0 mcg/mL LAB CHEMISTRY METHOD 01/09/2025 8:48 AM EDT [facility] Blood Venous blood specimen / Unknown Venipuncture / Unknown 01/09/2025 6:41 AM EDT 01/09/2025 8:08 AM EDT Sreekanth BERNARD LAB BLOOD ORDERABLES Final Resul t Performing Organization Address [facility] Co de Phone Number [facility] [address] [place] [address], [place] [phone] * Salicylate level (01/09/2025 6:41 AM EDT) Only the most recent of5 resultswithin the time period is included. Salicylate Level 3.1 2.0 - 29.0 mg/dL LAB CHEMISTRY METHOD 01/09/2025 8:48 AM EDT [facility] Blood Venous blood specimen / Unknown Venipuncture / Unknown 01/09/2025 6:41 AM EDT 01/09/2025 8:08 AM EDT Sreekanth BERNARD LAB BLOOD ORDERABLES Final Resul t Performing Organization Address City/[facility]/ZIP Co de Phone Number [facility] [address] [place] [address], [place] [phone] * Comprehensive metabolic panel (01/09/2025 6:41 AM EDT) Only the most recent of5 resultswithin the time period is included. Sodium 141 133 - 145 mmol/L LAB CHEMISTRY METHOD 01/09/2025 8:39 AM [facility] Potassium 3.8 3.5 - 5.5 mmol/L LAB CHEMISTRY METHOD 01/09/2025 8:39 AM [facility] Chloride 106 96 - 110 mmol/L LAB CHEMISTRY METHOD 01/09/2025 8:39 AM [facility] CO2 26 21 - 32 mmol/L LAB CHEMISTRY METHOD 01/09/2025 8:39 AM [facility] Anion Gap 9 3 - 11 LAB CHEMISTRY METHOD 01/09/2025 8:39 AM [facility] Glucose 81 70 - 100 mg/dL LAB CHEMISTRY METHOD 01/09/2025 8:39 AM [facility] BUN 9 5 - 25 mg/dL LAB CHEMISTRY METHOD 01/09/2025 8:39 AM [facility] Creatinine 0.83 0.70 - 1.30 mg/dL LAB CHEMISTRY METHOD 01/09/2025 8:39 AM [facility] eGFR 117 >=60 mL/min/1. 73m2 LAB CHEMISTRY METHOD 01/09/2025 8:39 AM [facility] Comment:Calculation based on the??Chronic Kidney Disease Epidemiology Collaboration (CKD-EPI) equation refit??without adjustment for race. BUN/Creatinine Ratio 10.8 LAB CHEMISTRY METHOD 01/09/2025 8:39 AM [facility] Calcium 9.1 8.5 - 10.5 mg/dL LAB CHEMISTRY METHOD 01/09/2025 8:39 AM [facility] AST (SGOT) 36 10 - 42 unit/L LAB CHEMISTRY METHOD 01/09/2025 8:39 AM [facility] ALT (SGPT) 36 10 - 60 unit/L LAB CHEMISTRY METHOD 01/09/2025 8:39 AM EDT [facility] Alkaline Phosphatase 65 42 - 121 unit/L LAB CHEMISTRY METHOD 01/09/2025 8:39 AM EDT [facility] Total Protein 6.4 6.0 - 8.0 g/dL LAB CHEMISTRY METHOD 01/09/2025 8:39 AM EDT [facility] Albumin 3.8 3.2 - 5.0 g/dL LAB CHEMISTRY METHOD 01/09/2025 8:39 AM EDT [facility] Total Bilirubin 0.5 0.0 - 1.4 mg/dL LAB CHEMISTRY METHOD 01/09/2025 8:39 AM EDT [facility] Blood Venous blood specimen / Unknown Venipuncture / Unknown 01/09/2025 6:41 AM EDT 01/09/2025 8:08 AM EDT Julián Hernandez MD LAB BLOOD ORDERABLES Final Resu lt Performing Organization Address City/[facility]/ZIP Co de Phone Number [facility] [address] [place] [address], [place] [phone] * (ABNORMAL) Bud level (11/24/2024 9:21 PM EST) Only the most recent of2 resultswithin the time period is included. Bud Level <0.2(L) 0.6 - 1.2 mEq/L LAB CHEMISTRY METHOD 11/25/2024 2:36 AM EST [facility] Blood Venous blood specimen / Unknown Venipuncture / Unknown 11/24/2024 9:21 PM EST 11/24/2024 9:47 PM EST us Abel Mistry MD LAB BLOOD ORDERABLES Final Resu lt [facility] [address] [place] [address], [place] [phone] * (ABNORMAL) [id number], RSV, Influenza A and B qualitative RT-PCR (11/19/2024 2:56 AM EST) Influenza A PCR Not Detected Not Detected LAB MICROBIOLOGY METHOD 11/19/2024 4:42 AM EST [facility] Influenza B PCR Not Detected Not Detected LAB MICROBIOLOGY METHOD 11/19/2024 4:42 AM EST [facility] RSV PCR Detected(A) Not Detected LAB MICROBIOLOGY METHOD 11/19/2024 4:42 AM EST [facility] SARS COV-2 Not Detected Not Detected LAB MICROBIOLOGY METHOD 11/19/2024 4:42 AM [facility] Swab Both anterior nares / Unknown Non-blood Collection / Unknown 11/19/2024 2:56 AM EST 11/19/2024 3:55 AM EST [facility] - 11/19/2024 4:42 AM EST Disclaimer: ??Testing was performed using the [employer] GeneXpert Xpress SARS-CoV-2 _Flu_RSV PLUS PCR assay. ??The manner in which this information is used to guide patient care is the responsibility of the healthcare provider. ??Results should be correlated with the clinical history, epidemiological data, and other data available to the clinician evaluating the patient. ??Negative results do not preclude infection. ??This test has been authorized by the FDA under an Emergency Use Authorization (EUA). ??This test is only authorized for the duration of time the declaration that circumstances exist justifying the authorization of the emergency use of in vitro diagnostic tests for detection of SARS-CoV-2 virus and/or diagnosis of COVID-19 infection under section 564 (b) (1) of the Act, 21 U.S.C 360bbb-3 (b) (1), unless the authorization is terminated or revoked sooner. ?? Reference Range: Not Detected Fact sheet for Healthcare providers can be found at https://www.fda.gov/media/488846/download. ?? Fact sheet for Healthcare patients can be found at https://www.fda.gov/media/449313/download. Alberta Crystal MD LAB MICROBIOLOGY - GENER AL ORDERABLES Final Result Performing Organization Address [facility] Co de Phone Number [facility] [address] [place] [address], [place] [phone] * Valproic acid level, total (11/17/2024 8:03 AM EST) [facility] Valproic Acid, Total 56 50 - 100 mcg/mL LAB CHEMISTRY METHOD 11/17/2024 9:06 AM EST [facility] Blood Venous blood specimen / Unknown Venipuncture / Unknown 11/17/2024 8:03 AM EST 11/17/2024 8:35 AM EST Pierre Munoz DO LAB BLOOD ORDERABLES Final Result Performing Organization Address [facility] de Phone Number [facility] [address] [place] [address], [place] [phone] * [place] top urine tube (10/29/2024 10:29 PM EST) [facility] Extra Tube Hold for add-ons. 10/30/2024 12:02 AM EST [facility] Comment:Auto resulted. Urine Urine specimen obtained by clean catch procedure / Unknown Non-blood Collection / Unknown 10/29/2024 10:29 PM EST 10/29/2024 10:57 PM EST Nadiya BERNARD LAB URINE ORDERABLES Final Resul t Performing Organization Address [facility] Co de Phone Number [facility] [address] [place] [address], [place] [phone] from Last 3 Months Insurance MEDICARE MEDICAID - [place] Care Teams Publications Distribution Clerk Relationship Specialty Start Date End Date Sreekanth Hurtado MD [address] PCP - General Psychiatry 01/01/25
--- OUTSIDE RECORDS SUMMARY | 2025-01-11 18:51 | XMS_ITS | Encounter Summary ---
Author Organization [facility] Address [address] [place] [address] Care Team Providers Care E Commerce Project Manager Name Role Phone Sreekanth Hurtado MD Primary Care Provider [phone] Encounter Details Date Type Department Care Team (Late st Contact Info) Description 01/11/2025 1:42 AM EDT - 01/11/2025 2:11 AM EDT Emergency [facility] Emergency [address] [place] [address] Discharge Disposition: Home or Self Care Social History Tobacco Use Types Packs/Day Years Used Date Smoking Tobacco: Some Days Cigarettes Sex and Gender Information Value Date Recorded Sex Assigned at Male 09/30/2024 4:45 AM EST Legal Sex Male 3:36 AM EST Gender Identity Male 09/30/2024 4:45 AM EST Sexual Orientation Straight 10/29/2024 10 :30 PM EST documented as of this encounter Functional Status * Are you deaf or do you have serious difficulty hearing? Answer Date of Assessment Author No 01/01/2025 7:09 AM Chris De Souza RN * Are you blind or do you have serious difficulty seeing, even when wearing glasses? Answer Date of Assessment Author No 01/01/2025 7:09 AM Chris De Souza RN * Do you have serious difficulty walking or climbing stairs? Answer Date of Assessment Author No 01/01/2025 7:09 AM Chris De Souza RN * Do you have serious difficulty dressing or bathing? Answer Date of Assessment Author No 01/01/2025 7:09 AM Chris De Souza RN * Because of a physical, mental, [...] De Souza RN documented in this encounter Medications at Time of Discharge albuterol HFA (PROAIR HFA ; PROVENTIL HFA [...] Discharge Disposition Disposition Code Departure Means Destination Home or Self Care documented in this encounter Plan of Treatment Not on file documented as of this encounter Visit Diagnoses Not on filedocumented in this encounter Care Teams E Commerce Project Manager Relationship Specialty Start Date End Date Sreekanth Hurtado MD [address] PCP - General Psychiatry 01/01/25 documented as of this encounter
--- NOTE | 2025-01-11 22:32 | MHC.CARE ---
Pt was evaluated by this technical writer and found appropriate for IPLOC. Section 12 is signed and located in pt's chart. If placement is not secured in 24 hours, a mental status update will occur to determine if pt continues to meet criteria for a higher level of care. Dr. Padgett notified regarding disposition.
[2025-01-12 06:24] VITALS: BP 96/62; PULSE 78; RESP 17; TEMP 36.9; O2SAT 98
[2025-01-12 06:42] LABS: Amphetamine Screen Urine Not Detected (Not Detect); Barbiturates, Urine Not Detected (Not Detect); Benzodiazepines Screen Urine Not Detected (Not Detect); Buprenorphine Scr Not Detected (Not Detect); Cannabinoid Screen Urine POSITIVE (Not Detect); Cocaine Screen Urine POSITIVE (Not Detect); Fentanyl, urine Not Detected (Not Detect); Methadone Screen, Urine Not Detected (Not Detect); Opiate Screen Urine Not Detected (Not Detect); Oxycodone Screen Urine Not Detected (Not Detect); Phencyclidine Screen Urine Not Detected (Not Detect)
[2025-01-12 06:49] LABS: Appearance Urine Clear; Color Urine Yellow; Glucose Urine UA Negative (Negative); Leukocyte Esterase Urine Negative (Negative); Nitrite Urine Negative (Negative); Specific Gravity - Urine 1.025 (1.005-1.025); Urine Blood Negative (Negative); Urine Ketones Negative (Negative); Urine Protein Negative (Neg-Trace)
--- NOTE | 2025-01-12 06:50 | PC.NURSE ---
Patient had uneventful night, he denies any pain/discomfort at present, urine sec collected for [place] and sent to lab, patient currently resting in bed, offers no complains at present, plan of care ongoing.
--- NOTE | 2025-01-12 07:19 | PC.NURSE ---
Assumed care of patient at 0645, patient appears to be in no apparent distress this am, sleeping, respirations even and unlabored. Continue plan of care for IPLOC
[2025-01-12] MEDS: risperiDONE 2 MG TABLET PO (10:48)
[2025-01-12] MEDS: Benztropine Mesylate 1 MG TABLET PO (10:48)
[2025-01-12] MEDS: Atorvastatin Calcium 10 MG TABLET PO (10:48)
--- NOTE | 2025-01-12 11:56 | MHC.CARE ---
Pt has been referred to N via smart sheet for a follow up
[2025-01-12 13:14] VITALS: BP 108/76; PULSE 68; RESP 18; TEMP 37; O2SAT 100
== END 2025-01-12 12:00 | disposition home or self-care (01) ==
PROVIDERS: Physician Assistant Medical; Emergency Provider Emergency Medicine
DX: F25.9 Schizoaffective disorder, unspecified (principal); F19.950 Other psychoactive substance use, unspecified with psychoactive substance-induced psychotic disorder with delusions; R41.82 Altered mental status, unspecified; F17.210 Nicotine dependence, cigarettes, uncomplicated; Z11.52 Encounter for screening for COVID-19; Z79.899 Other long term (current) drug therapy; Z51.81 Encounter for therapeutic drug level monitoring
CPT/HCPCS: 80053; 80143; 80179; 80307; 81003; 85025; 87635; 93005; 99285; S9485

== ENCOUNTER → 2025-01-11 16:28 | Outpatient (BNV) | payer MEDICARE, MEDICAID, SELFPAY | PROVIDERS: Emergency Provider Emergency Medicine; Visit Provider Internal Medicine Cardiovascular Disease | DX: Z13.6 Encounter for screening for cardiovascular disorders (principal) | CPT/HCPCS: 93010 ==

== ENCOUNTER 2025-01-13 22:54 | Emergency (ER) | payer MEDICARE, MEDICAID, SELFPAY ==
[2025-01-13 22:59] VITALS: BP 112/76; PULSE 81; RESP 18; TEMP 36.6; O2SAT 97; BMI 25.1
--- NOTE | 2025-01-13 23:46 | PC.NURSE ---
Pt awake and alert, calm and cooperative. Presents exhibiting signs of paranoia stating there are bad evil spirits in [place] that are trying to hurt him. Pt also states not taking medications because there are bad spirits in them are trying to get inside of him. Endorses AH. Denies SI/HI. Changed into hospital attire. Food and drink provided as requested. MD at bedside. Provider will complete section 12 paperwork.
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
--- OUTSIDE RECORDS SUMMARY | 2025-01-13 23:54 | XMS_ITS | Encounter Summary ---
Author Organization [facility] Address [address] [place] [address] Care Team Providers Care Berry Picker Machine Operator Name Role Phone Serekanth Hurtado MD Primary Care Provider [phone] Reason for Visit * Reason Comments Auditory Hallucinations Auditory Halluci nations, denies SI/HI Encounter Details Date Type Department Care Team (Late st Contact Info) Description 01/12/2025 9:33 PM EDT - 01/13/2025 9:42 AM EDT Emergency [facility] Emergency [address] [place] [id number] Abel Mistry MD [address] [place] [address] Auditory hallucinations (Primary Dx) Discharge Disposition: Home or Self Care Social [...] Sign Reading Time Taken Comments Blood Pressure 104/60 01/13/2025 5:48 AM EDT Pulse 59 01/13/2025 5:48 AM EDT Temperature 36.6 ??C (97.9 ??F) 01/13/2025 5:48 AM ED T Respiratory Rate 16 01/13/2025 5:48 AM EDT Oxygen Saturation 98% 01/13/2025 5:48 AM EDT Inhaled Oxygen Concentration - - Weight 81.6 kg (180 lb) 01/12/2025 9:47 PM EDT Height 180.3 cm (5' 11 ) 01/12/2025 9:47 PM EDT Body Mass Index 25.1 01/12/2025 9:47 PM EDT documented in this encounter Functional Status * Are you deaf or do you have serious difficulty hearing? Answer Date of Assessment Author No 01/13/2025 4:06 AM EDT Dolelisa, As yajaira Mitchell RN * Are you blind or do you have serious difficulty seeing, even when wearing glasses? Answer Date of Assessment Author No 01/13/2025 4:06 AM EDT Dolelisa, As yajaira Mitchell RN * Do you have serious difficulty walking or climbing stairs? Answer Date of Assessment Author No 01/13/2025 4:06 AM EDT Doles, As yajaira Mitchell RN * Do you have serious difficulty dressing or bathing? Answer Date of Assessment Author No 01/13/2025 4:06 AM EDT Dolelisa, As yajaira Mitchell RN * Because of a physical, mental, or emotional condition, do you have serious difficulty doing errandsalone such as visiting the doctor? Answer Date of Assessment Author No 01/13/2025 4:06 AM EDT Dolelisa, As yajaira Mitchell RN documented as of this encounter Mental Status * Because of a physical, mental, or emotional condition, do you have serious difficulty concentrating, remembering, or making decisions? (5 years old or older) Answer Entry Date Author No 01/13/2025 4:06 AM EDT Ely, Jeanette Mitchell RN documented in this encounter Discharge Instructions * Discharge Instructions* Kerwin Mccabe MD - 01/13/2025 9:20 AM EDT Follow-up with recommendations from the crisis team. documented in this encounter Medications at Time [...] documented in this encounter Progress Notes * Maximus Benavidez RN - 01/12/2025 9:34 PM EDT BIBA from home c/o AH, pt called ems and PD was on scene when ems arrived. Pt denies SI/HI. Ems states pt did not admit to any drug use today. * Abel Mistry MD - 01/12/2025 9:29 PM EDT Emergency Medicine Note Patient Name: Sean Buchanan Initial Evaluation: 01/12/2025 : 1990 Patient's PCP: Sreekanth Hurtado MD Emergency Physician: Abel Mistry MD History of Present Illness Chief Complaint: Chief Complaint Patient presents with Auditory Hallucinations Auditory Hallucinations, denies SI/HI HPI: 34-year-old male, history of bipolar and schizoaffective disorder, presents with auditory hallucinations. Patient states he is having auditory hallucinations, he is not having any SI or HI. He called EMS for transport to the ED for evaluation. This is his third visit for the same complaint. David have a history of polysubstance abuse, his last visit was most likely cocaine induced hallucinations. He denies any drug use today. ROS: I have performed a ROS with the pertinent positives and negatives documented in the history ofpresent illness. Previous History Past Medical History: Diagnosis Date Bipolar 1 disorder (CMS/HCC) Disease of thyroid gland Schizo affective schizophrenia (CMS/HCC) History reviewed. No pertinent surgical history. Social History Tobacco Use Smoking status: Some Days Types: Cigarettes No family history on file. is allergic to clozaril [clozapine], droperidol, haloperidol, seroquel [quetiapine], and trazodone. No current facility-administered medications on file prior to encounter. Current Outpatient Medications on File Prior to Encounter Medication Sig Dispense Refill acetaminophen (TYLENOL) 500 mg tablet Take 2 tablets (1,000 mg total) by mouth every 6 (six) hours if needed for mild pain for up to 10 days. 30 tablet 0 albuterol HFA (PROAIR HFA ; PROVENTIL HFA [...] 1 (one) time each day. Physical Exam ED Triage Vitals [01/12/25 2147] Temp Heart Rate Resp BP 36.7 ??C (98.1 ??F) 72 18 109/71 SpO2 Temp Source Heart Rate Source Patient Position 97 % Oral Other (Comment) Lying BP Location FiO2 (%) Right arm;Upper -- General: Well-appearing, well nourished, in no acute distress HEENT: PERRL, EOMI, external ears and nose appear unremarkable, airway is patent Neck: Supple, full range of motion Chest: Clear to auscultation; no evidence of respiratory distress Circulatory: RRR, extremities well perfused Abdomen: Non-distended, Non-Tender Extremities: Normal ROM, No edema Skin: Warm and dry Neuro: Alert and oriented, no focal deficits Results Labs Reviewed ACETAMINOPHEN LEVEL - Abnormal Result Value Acetaminophen Level <2.0 (*) COMPREHENSIVE METABOLIC PANEL - Normal Sodium 141 Potassium 3.8 Chloride 106 CO2 30 Anion Gap 5 Glucose 94 BUN 10 Creatinine 0.76 eGFR 120 BUN/Creatinine Ratio 13.2 Calcium 9.6 AST (SGOT) 27 ALT (SGPT) 34 Alkaline Phosphatase 67 Total Protein 6.9 Albumin 4.0 Total Bilirubin 0.6 ETHANOL - Normal Ethanol Level <3 SALICYLATE LEVEL - Normal Salicylate Level 2.6 CBC AND DIFFERENTIAL Narrative: The following orders were created for panel order CBC and differential. Procedure Abnormality Status --------- ------ CBC auto differential[[id number]] Final result Please view results for these tests on the individual orders. CBC WITH AUTO DIFFERENTIAL WBC 9.9 RBC 5.20 Hemoglobin 16.4 Hematocrit 48.0 MCV 91.8 MCH 31.4 MCHC 34.2 RDW 13.1 Platelets 224 MPV 10.4 NRBC 0.0 NRBC Absolute 0.00 Neutrophils Relative 52.3 Lymphocytes Relative 35.6 Monocytes Relative 7.7 Eosinophils Relative 3.7 Basophils Relative 0.5 Immature Granulocytes Relative 0.2 Neutrophils Absolute 5.18 Lymphocytes Absolute 3.53 Monocytes Absolute 0.76 Eosinophils Absolute 0.37 Basophils Absolute 0.05 Immature Granulocytes Absolute 0.02 DRUG ABUSE SCREEN 8A PANEL, URINE BUPRENORPHINE SCREEN, URINE PHENCYCLIDINE, URINE METHADONE SCREEN, URINE Abnormal Labs Reviewed ACETAMINOPHEN LEVEL - Abnormal; Notable for the following components: Result Value Acetaminophen Level <2.0 (*) All other components within normal limits No orders to display I have discussed the incidental/abnormal imaging and/or lab abnormalities with the patient and haveinstructed them the need for further evaluation and workup with their primary care doctor. I have provided the patient with a paper copy of the abnormality. The laboratory results, imaging results and other diagnostic exam results were reviewed in the EMR. EKG Interpretation Critical Care Time None ? Medical Decision Making Medications - No data to display Clinical Impressions as of 01/13/25624 Auditory hallucinations 34-year-old male, history of bipolar and schizoaffective disorder, presents with auditory hallucinations. He has no medical complaints today. Screening labs are pending. Patient is medically cleared for crisis evaluation. Care transferred to the morning team for follow-up and final disposition on this patient. Procedures Procedures Diagnosis 1. Auditory hallucinations Disposition Data Unavailable ED Prescriptions None Physician Attestation Abel Mistry MD 01/13/25624 documented in this encounter Consult Notes * Mimi Mon - 01/13/2025 9:13 AM EDTAssociated Order(s): IP CONSULT TO RDA Images from the original note were not included. Behavioral Health Services - Crisis Assessment Important times Time of arrival: 01/12/25 9:29 pm Time of referral: 01/12/25 9:35 pm Time of readiness: 01/13/25 6:34 am Time assessment started: 01/13/25 8:15 am Time of disposition: 01/13/25 9:15 am Location: [facility] Emergency Department Consulted case with: Norma Britt LCSW Insurance information: Insurance: Medicare A&B Verified by: Mimi Reason for Consultation / Presenting Problem: Sean Buchanan is being seen today for a consultive service at the request of No att. providers found to assess risk and identify appropriate level of care. He is a 34-year-old male, history of bipolar and schizoaffective disorder, presents with auditory hallucinations. Patient states he is having auditory hallucinations, he is not having any SI or HI. He called EMS for transport to the ED for evaluation. This is his third visit for the same complaint. He does have a history of polysubstance abuse, his last visit was most likely cocaine induced hallucinations. He denies any drug use today. Bonilla reported I am hearing voices . He stated I am being rapped by the shadow of in my room . He stated I was walking and there was music coming out of the shun . Bonilla stated I don't want to hurt myself or others, I am just hearing voices . He stated I have not been to the senior care in a few days . senior care staff stated that he has not been there in the last day and half. She stated he is usually gone in the am and will only take his meds 1-2 times a week in the evening. She stated ever sincehe came to there program he has been inconsistent with his medications. She stated he is not on a Papo Order and he can refuse his medications. Staff reported he is not reporting harm to himself or others. History of Present Illness: Sean is a 34 y.o. male with Chief Complaint Patient presents with Auditory Hallucinations Auditory Hallucinations, denies SI/HI Social/Educational History: Guardian - if Yes, provide contact information: self [place] Status: N/A State Agency Involvement: N/A Papo's Order: None reported Marital Status: single Alternative Placement Details: N/A Living Situation for patient: [facility] senior care Household Members/Age: Unknown Friendships/Family/Social Peer Support/Relationships: Herman has providers working with him. He stated he has a few friends. Highest level of education: 11th grade Comments (Include Learning Needs): None reported Occupation: Unemployed Employment/Extracurricular Activities/Hobbies: Unemployed Limitations of Daily Activities: None reported Strengths/Supports: Sean is able to express his needs. Collaterals, contact information, and engagement level: Therapist: Currently waiting Psychiatrist: ANISH Casas [phone] PCP: Kaley PCP Family: Sister Evelina Buchanan [phone] Other: [facility] senior care [phone] [facility] Waxing Machine Operator Helper Gaeb Zamudio [phone] [facility] director Yancy Coates [phone] Mental Status Speech: WNL Eye Contact: WNL Motor Activity: WNL Mood: Anxious Affect: Flat Sleep: Fair Appetite: WNL Memory: WNL Attention / Concentration: WNL Behavior: Cooperative Appearance: Hallucinations: Auditory and Visual Delusions: Paranoid Thought Content: Preoccupied SI: Denied HI: Denied Thought Process: WNL Orientation Impairment: Place and Person Insight: Poor Judgment: Poor Impulse Control: Fair Substance Use History (Including family history): Alcohol I don't usually drink but I had a nip today. Cocaine I did use yesterday . He stated Irineo told me I could not use cocaine any more . Marijuana onset age 14, daily. Last use yesterday Utox Results: Substance Use Treatment History: Sean denies any history of substance abuse treatment. Mental Health Treatment History: Outpatient Mental Health Treatment: [facility] outpatient. Previous or Current Psychological Diagnosis: Schizoaffective disorder, Bipolar Type Prior Psychiatric Hospitalizations/Residential Treatment Facilities: Sean is known to [facility]. He has a long history of impatent psychiatric hospitalizations. His last hospitalization was at [facility]. Other Comments Regarding Mental Health Treatment History: None reported Mental Health Concerns in Family: None reported Trauma History: Sean has a documented history of trauma. Medications: Scheduled Meds: Continuous Infusions: PRN Meds: Risk Assessment: Self-Harm: None Suicidal Behavior: None Homicidal Behavior: None Physical Assault: None Physical Aggression: None Property Damage: None Verbal Aggression: None Family history of suicide: None reported Protective Factors: Stable housing [facility] senior care with supports Risk Factors: Not consistent with taking his medications Delusional at baseline Substance use Suicide Risk: Based on patient's history and current presentation, their level of risk for intentional lethal harm is considered Low Interventions: Used active listening Response to interventions: Sean was engaged in the conversation. DSM-5TR Diagnosis: F25.0 Schizoaffective D/O, Bipolar Type F14.21 Cocaine use, moderate Plan: Sean is at low risk for suicidal or homicidal plan and intent. He is at baseline and is delusional at baseline. Staff reported it was fine for him to return home. Recommendations were discussed with requesting provider. It was a pleasure to assist Sean Buchanan here at [facility]. This report is written and finalized by: Mimi Mon MS Behavioral Health Specialist [facility] (Tel): [phone] / : [phone] documented in this encounter Plan of Treatment Not on file documented as of this encounter Procedures Procedure Name Priority Date/Time Associated Diagnosis Comments DRUG ABUSE SCREEN 8A PANEL, URINE STAT 01/13/2025 7:17 AM EDT BUPRENORPHINE SCREEN, URINE STAT 01/13/2025 7:17 AM EDT METHADONE SCREEN, URINE STAT 01/13/2025 7:17 AM EDT PHENCYCLIDINE, URINE STAT 01/13/2025 7:17 AM EDT CBC WITH AUTO DIFFERENTIAL STAT 01/12/2025 10:08 PM EDT CBC AND DIFFERENTIAL STAT 01/12/2025 10:08 PM EDT ETHANOL STAT 01/12/2025 10:08 PM EDT ACETAMINOPHEN LEVEL STAT 01/12/2025 1 0:08 PM EDT SALICYLATE LEVEL STAT 01/12/2025 10:0 8 PM EDT COMPREHENSIVE METABOLIC PANEL STAT 01/12/2025 10:08 PM EDT documented in this encounter Results * Methadone, urine (01/13/2025 7:17 AM EDT) Methadone Screen, Urine Negative Negative LAB CHEMISTRY METHOD 01/13/2025 8:53 AM EDT [facility] Comment: Assay cutoff 300 ng/mL Semi-quantitative assay for screening purposes only. Unconfirmed screening result should not be used for non-medical purposes. *ALTERNATE METHOD CONFIRMATION DONE UPON REQUEST ONLY* Urine Urine specimen obtained by clean catch procedure / Unknown Non-blood Collection / Unknown 01/13/2025 7:17 AM EDT 01/13/2025 8:13 AM EDT us Abel Mistry MD LAB URINE ORDERABLES Final Resu lt Performing Organization Address [facility] Co de Phone Number [facility] [address] [place] [address], [place] [phone] * Phencyclidine, urine (01/13/2025 7:17 AM EDT) Pathologist [facility] PCP Scrn, Ur Negative Negative LAB CHEMISTRY METHOD 01/13/2025 8:45 AM EDT [facility] Comment: Assay cutoff 25 ng/mL Semi-quantitative assay for screening purposes only. Unconfirmed screening result should not be used for non-medical purposes. *ALTERNATE METHOD CONFIRMATION DONE UPON REQUEST ONLY* Urine Urine specimen obtained by clean catch procedure / Unknown Non-blood Collection / Unknown 01/13/2025 7:17 AM EDT 01/13/2025 8:13 AM EDT us Abel Mistry MD LAB URINE ORDERABLES Final Resu lt Performing Organization Address [facility]/ZIP Co de Phone Number [facility] [address] [place] [address], [place] [phone] * Buprenorphine screen, urine (01/13/2025 7:17 AM EDT) Buprenorphine Screen Urine Negative Negative LAB CHEMISTRY METHOD 01/13/2025 8:45 AM [facility] Urine Urine specimen obtained by clean catch procedure / Unknown Non-blood Collection / Unknown 01/13/2025 7:17 AM EDT 01/13/2025 8:13 AM EDT Narrative [facility] - 01/13/2025 8:45 AM EDT Assay cutoff 5 ng/mL Semi-quantitative assay for screening purposes only. Unconfirmed screening result should not be used for non-medical purposes. *ALTERNATE METHOD CONFIRMATION DONE UPON REQUEST ONLY* us Abel Mistry MD LAB URINE ORDERABLES Final Resu lt [facility] [address] [place] [address], * (ABNORMAL) Drug abuse screen 8a panel, urine (01/13/2025 7:17 AM EDT) [facility] Amphetamine Screen, Ur Negative Negative LAB CHEMISTRY METHOD 5 9:16 AM [facility] Comment:Certain OTC medicati ons containing ephedrine, phenylephrine, pseudoephedrine and phenylpropanolamine can cause false positive results. Barbiturate Screen, Ur Negative Negative LAB CHEMISTRY METHOD 5 9:16 AM EDT [facility] Benzodiazepine Screen, Ur Negative Negative LAB CHEMISTRY METHOD 5 9:16 AM [facility] Cocaine Screen, Ur Positive(A ) Negative LAB CHEMISTRY METHOD 5 9:16 AM [facility] Opiate Screen, Ur Negative Negative LAB CHEMISTRY METHOD 5 9:16 AM [facility] Cannabinoid (THC) Screen, Ur Positive(A ) Negative LAB CHEMISTRY METHOD 5 9:16 AM EDT [facility] Comment:Specimens from patie nts taking pantoprazole sodium (Protonix) have been shown to produce false positive results. Oxycodone Screen, Ur Negative Negative LAB CHEMISTRY METHOD 5 9:16 AM EDT [facility] Fentanyl, Ur Negative Negative LAB CHEMISTRY METHOD 5 9:16 AM EDT [facility] Urine Urine specimen obtained by clean catch procedure / Unknown Non-blood Collection / Unknown 01/13/2025 7:17 AM EDT 01/13/2025 8:13 AM EDT Narrative [facility] - 01/13/2025 9:16 AM EDT Assay cutoffs: Amphetamines ? 1000 ng/mL Barbiturates ?200 ng/mL Benzodiazepines ?? 200 ng/mL Cocaine ? 300 ng/mL Fentanyl ?1 ng/mL Opiates ? 300 ng/mL Oxycodone ? 100 ng/mL THC ?50 ng/mL Semi-quantitative assay for screening purposes only. Unconfirmed screening result should not be used for non-medical purposes. *ALTERNATE METHOD CONFIRMATION DONE UPON REQUEST ONLY* us Abel Mistry MD LAB URINE ORDERABLES Final Resu lt [facility] [address] [place] [address], * CBC auto differential (01/12/2025 10:08 PM EDT) WBC 9.9 4.8 - 10.8 K/[facility] LAB HEMETOLOGY METHOD 01/12/2025 10:37 PM EDT [facility] RBC 5.20 4.50 - 5.50 M/[facility] LAB HEMETOLOGY METHOD 01/12/2025 10:37 PM EDT [facility] Hemoglobin 16.4 13.5 - 17.5 g/dL LAB HEMETOLOGY METHOD 01/12[facility]2025 10:[facility] Hematocrit 48.0 42.0 - 54.0 % LAB HEMETOLOGY METHOD 01/12/2025 10:37 PM [facility] MCV 91.8 79.0 - 98.0 FL LAB HEMETOLOGY METHOD 01/12/2025 10:37 [facility] MCH 31.4 27.0 - 32.0 pcg LAB HEMETOLOGY METHOD 01/12/2025 10:37 PM [facility] MCHC 34.2 32.0 - 37.0 g/dL LAB HEMETOLOGY METHOD 01/12/2025 10:37 PM [facility] RDW 13.1 11.0 - 15.0 % LAB HEMETOLOGY METHOD 01/12/2025 10:37 PM [facility] Platelets 224 130 - 400 K/mcL LAB HEMETOLOGY METHOD 01/12/2025 10:37 PM [facility] MPV 10.4 7.0 - 11.0 FL LAB HEMETOLOGY METHOD 01/12/2025 10:37 PM [facility] NRBC 0.0 <1.0 % LAB HEMETOLOGY METHOD 01/12/2025 10:37 PM [facility] NRBC Absolute 0.00 <0.10 K/mcL LAB HEMETOLOGY METHOD 01/12/2025 10:37 PM [facility] Neutrophils Relative 52.3 % LAB HEMETOLOGY METHOD 01/12/2025 10:37 PM [facility] Lymphocytes Relative 35.6 % LAB HEMETOLOGY METHOD 01/12/2025 10:37 PM EDT [facility] Monocytes Relative 7.7 % LAB HEMETOLOGY METHOD 01/12/2025 10:37 PM EDT [facility] Eosinophils Relative 3.7 % LAB HEMETOLOGY METHOD 01/12/2025 10:37 PM EDT [facility] Basophils Relative 0.5 % LAB HEMETOLOGY METHOD 01/12/2025 10:37 PM EDT [facility] Immature Granulocytes Relative 0.2 % LAB HEMETOLOGY METHOD 01/12/2025 10:37 PM EDT [facility] Neutrophils Absolute 5.18 1.50 - 7.00 K/mcL LAB HEMETOLOGY METHOD 01/12/2025 10:37 PM EDT [facility] Lymphocytes Absolute 3.53 1.00 - 5.00 K/mcL LAB HEMETOLOGY METHOD 01/12/2025 10:37 PM EDT [facility] Monocytes Absolute 0.76 0.20 - 1.00 K/mcL LAB HEMETOLOGY METHOD 01/12/2025 10:37 PM EDT [facility] Eosinophils Absolute 0.37 0.00 - 0.50 K/mcL LAB HEMETOLOGY METHOD 01/12/2025 10:37 PM EDT [facility] Basophils Absolute 0.05 0.00 - 0.20 K/mcL LAB HEMETOLOGY METHOD 01/12/2025 10:37 PM EDT [facility] Immature Granulocytes Absolute 0.02 0.00 - 0.03 K/mcL LAB HEMETOLOGY METHOD 01/12/2025 10:37 PM EDT [facility] Blood Venous blood specimen / Unknown 01/12/2025 10:08 PM EDT 01/12/2025 10:33 PM EDT us Abel Mistry MD LAB BLOOD ORDERABLES Final Resu lt [facility] [address] [place] [address], [place] [phone] * Salicylate level (01/12/2025 10:08 PM EDT) Salicylate Level 2.6 2.0 - 29.0 mg/dL LAB CHEMISTRY METHOD 01/12/2025 11:01 PM EDT [facility] Blood Venous blood specimen / Unknown 01/12/2025 10:08 PM EDT 01/12/2025 10:32 PM EDT us Abel Mistry MD LAB BLOOD ORDERABLES Final Resu lt Performing Organization Address City/[facility]/ZIP Co de Phone Number [facility] [address] [place] [address], [place] [phone] * (ABNORMAL) Acetaminophen level (01/12/2025 10:08 PM EDT) Acetaminophen Level <2.0(L) 10.0 - 30.0 mcg/mL LAB CHEMISTRY METHOD 01/12/2025 11:10 PM EDT [facility] Blood Venous blood specimen / Unknown 01/12/2025 10:08 PM EDT 01/12/2025 10:32 PM EDT us Abel Mistry MD LAB BLOOD ORDERABLES Final Resu lt [facility] [address] [place] [address], [place] [phone] * Ethanol (01/12/2025 10:08 PM EDT) Ethanol Level <3 0 - 10 mg/dL LAB CHEMISTRY METHOD 01/12/2025 11:01 PM EDT [facility] Blood Venous blood specimen / Unknown 01/12/2025 10:08 PM EDT 01/12/2025 10:32 PM EDT us Abel Mistry MD LAB BLOOD ORDERABLES Final Resu lt [facility] [address] [place] [address], [place] [phone] * Comprehensive metabolic panel (01/12/2025 10:08 PM EDT) Sodium 141 133 - 145 mmol/L LAB CHEMISTRY METHOD 01/12/2025 11:01 PM [facility] Potassium 3.8 3.5 - 5.5 mmol/L LAB CHEMISTRY METHOD 01/12/2025 11:01 PM [facility] Chloride 106 96 - 110 mmol/L LAB CHEMISTRY METHOD 01/12/2025 11:01 PM [facility] CO2 30 21 - 32 mmol/L LAB CHEMISTRY METHOD 01/12/2025 11:01 PM [facility] Anion Gap 5 3 - 11 LAB CHEMISTRY METHOD 01/12/2025 11:01 PM [facility] Glucose 94 70 - 100 mg/dL LAB CHEMISTRY METHOD 01/12/2025 11:01 PM [facility] BUN 10 5 - 25 mg/dL LAB CHEMISTRY METHOD 01/12/2025 11:01 PM [facility] Creatinine 0.76 0.70 - 1.30 mg/dL LAB CHEMISTRY METHOD 01/12/2025 11:01 PM [facility] eGFR 120 >=60 mL/min/1. 73m2 LAB CHEMISTRY METHOD 01/12/2025 11:01 PM [facility] Comment:Calculation based on the??Chronic Kidney Disease Epidemiology Collaboration (CKD-EPI) equation refit??without adjustment for race. BUN/Creatinine Ratio 13.2 LAB CHEMISTRY METHOD 01/12/2025 11:01 PM [facility] Calcium 9.6 8.5 - 10.5 mg/dL LAB CHEMISTRY METHOD 01/12/2025 11:01 PM [facility] AST (SGOT) 27 10 - 42 unit/L LAB CHEMISTRY METHOD 01/12/2025 11:01 PM [facility] ALT (SGPT) 34 10 - 60 unit/L LAB CHEMISTRY METHOD 01/12/2025 11:01 PM [facility] Alkaline Phosphatase 67 42 - 121 unit/L LAB CHEMISTRY METHOD 01/12/2025 11:01 PM [facility] Total Protein 6.9 6.0 - 8.0 g/dL LAB CHEMISTRY METHOD 01/12/2025 11:01 PM [facility] Albumin 4.0 3.2 - 5.0 g/dL LAB CHEMISTRY METHOD 01/12/2025 11:01 PM [facility] Total Bilirubin 0.6 0.0 - 1.4 mg/dL LAB CHEMISTRY METHOD 01/12/2025 11:01 PM T [facility] Blood Venous blood specimen / Unknown 01/12/2025 10:08 PM EDT 01/12/2025 10:32 PM EDT Abel Mistry MD LAB BLOOD ORDERABLES Final Resu lt [facility] [address] [place] [address], documented in this encounter Visit Diagnoses Diagnosis Auditory hallucinations- Primary Hallucinations documented in this encounter Orders Consult Count Last Ordered Date First Orde red Date IP CONSULT TO RDA 1 01/13/2025 documented in this encounter Care Teams Berry Picker Machine Operator Relationship Specialty Start Date End Date Sreekanth Hurtado MD [address] PCP - General Psychiatry 01/01/25 documented as of this encounter
--- OUTSIDE RECORDS SUMMARY | 2025-01-13 23:54 | XMS_ITS | Encounter Summary ---
Author Organization [facility] Address [address] [place] [address] Care Team Providers Care Marketing Technologist Name Role Phone Sreekanth Hurtado MD Primary Care Provider [phone] Encounter Details Date Type Department Care Team (Late st Contact Info) Description 01/11/2025 1:42 AM EDT - 01/11/2025 2:[address] [facility] Emergency [address] [place] [address] Discharge Disposition: Home or Self [...] Entry Date Author Yes 01/01/2025 7:09 AM EDT Chris Roe RN documented in this encounter Medications at [...] on filedocumented in this encounter Care Teams Marketing Technologist Relationship Specialty Start Date End Date Sreekanth Hurtado MD [place] [phone] (Work) PCP - General Psychiatry 01/01/25 documented as of this encounter
--- OUTSIDE RECORDS SUMMARY | 2025-01-13 23:54 | XMS_ITS | Clinical Summary ---
Author Organization [facility] Address [address] [place] [address] Phone Care Team Providers Care Director Of Recruiting Name Role Phone Sreekanth Hurtado MD Primary Care Provider [phone] Allergies Active Allergy Reactions Criticality Noted Date Comments Clozapine Neutropenia Medium 09/30/2024 Droperidol 11/17/2024 ?acute dystonic reaction Haloperidol Unknown 09/30/2024 many years ago...they had to give me Benadryl and I had to sit upright by a window Quetiapine Unknown 09/30/2024 Trazodone Unknown 09/30/2024 Mentioned in pt's med list from shelter Medications atorvastatin (LIPITOR) 10 mg tablet Take [...] Encounters Date Type Department Care Team Description 01/12/2025 9:33 PM EDT - 01/13/2025 9:42 AM EDT [facility] [address] [place] [phone] Abel Mistry MD Auditory hallucinations (Primary Dx) Discharge Disposition: Home or Self Care 01/11/2025 2:50 AM EDT - 01/11/2025 11:20 AM EDT [facility] [address] [place] [phone] Pierre Munoz DO Cocaine use disorder (Primary Dx); Hallucinations Discharge Disposition: Home or Self Care 01/11/2025 1:42 AM EDT - 01/11/2025 2:11 AM EDT [facility] [address] [place] [phone] Discharge Disposition: Home or Self Care 01/09/2025 4:14 AM EDT - 01/09/2025 9:08 AM EDT [facility] [address] [place] [phone] Julián Hernandez MD Anxiety disorder, unspecified type (Primary Dx); Hallucinations Discharge Disposition: Home or Self Care 01/04/2025 7:06 AM EDT - 01/04/2025 9:08 AM EDT [facility] [address] [place] [phone] Loren Morelos DO Paranoia ([facility] V24, [facility] V28) (Primary Dx) Discharge Disposition: Home or Self Care 01/01/2025 12:36 AM EDT - 01/01/2025 1:55 PM EDT [facility] [address] [place] [phone] Alberta Crystal MD Patel, Parth B, MD Crack cocaine use (Primary Dx); Anxiety Discharge Disposition: Home or Self Care 12/27/2024 11:31 PM EDT - 12/28/2024 3:48 AM EDT [facility] [address] [place] [phone] Discharge Disposition: Home or Self Care 12/15/2024 1:42 AM EDT - 12/15/2024 8:07 AM EDT [facility] [address] [place] [phone] Discharge Disposition: Home or Self Care 11/24/2024 9:01 PM EST - 11/25/2024 11:01 AM EST [facility] [address] [place] [phone] Loren Morelos DO Millay, Scot A, MD Durkin, Louis J, MD Schizoaffective disorder, bipolar type ([facility] V24, [facility] V28) (Primary Dx); Auditory hallucination Discharge Disposition: Home or Self Care 11/19/2024 1:09 AM EST - 11/19/2024 10:46 AM [facility] Emergency [address] [place] [phone] Alberta Crystal MD Landry, Jonathan P, MD Schizoaffective disorder, bipolar type ([facility] V24, [facility] V28) (Primary Dx); Polysubstance use disorder; RSV bronchitis; Homicidal ideations; Hallucinations Discharge Disposition: Home or Self Care 11/17/2024 3:50 AM EST - 11/17/2024 12:15 PM [facility] Emergency [address] [place] [phone] Abel Mistry MD Cauchon, Matthew C, DO Goebel, Mathew, MD Schizoaffective disorder, bipolar type ([facility] V24, [facility] V28) (Primary Dx); Homicidal ideation; Auditory hallucinations; Schizoaffective disorder, unspecified type ([facility]) Discharge Disposition: Home or Self Care 10/29/2024 9:29 PM EST - 10/30/2024 9:50 AM [facility] Emergency [address] [place] [phone] Nakul Grullon MD Schizoaffective disorder, bipolar type ([facility] V24, [facility] V28) (Primary Dx); Auditory hallucinations Discharge Disposition: Home or Self Care 10/27/2024 11:32 AM EST - 10/27/2024 1:09 PM [facility] Emergency [address] [place] [phone] Pierre Munoz DO Anxiety (Primary Dx) Discharge Disposition: Home or Self Care from Last 3 Months Medical History Medical History Date Comments Disease of thyroid gland Bipolar 1 disorder ([facility]) Schizo affective schizophrenia ([facility] V24, [facility] V28) Social History Tobacco Use Types Packs/Day Years [...] Mass Index 25.1 01/12/2025 9:47 PM EDT Plan of Treatment Health Maintenance Due [...] Associated Diagnosis Comments METHADONE SCREEN, URINE STAT 01/13/2025 7:17 AM EDT PHENCYCLIDINE, URINE STAT 01/13/2025 7:17 AM EDT BUPRENORPHINE SCREEN, URINE STAT 01/13/2025 7:17 AM EDT DRUG ABUSE SCREEN 8A PANEL, URINE STAT 01/13/2025 7:17 AM EDT CBC WITH AUTO DIFFERENTIAL STAT 01/12/2025 10:08 PM EDT SALICYLATE LEVEL STAT 01/12/2025 10:0 8 PM EDT ACETAMINOPHEN LEVEL STAT 01/12/2025 1 0:08 PM EDT ETHANOL STAT 01/12/2025 10:08 PM EDT COMPREHENSIVE METABOLIC PANEL STAT 01/12/2025 10:08 PM EDT CBC AND DIFFERENTIAL STAT 01/12/2025 10:08 PM EDT METHADONE SCREEN, URINE STAT 01/11/2025 2:56 [...] AND DIFFERENTIAL STAT 11/24/2024 9:21 PM EST [id number], RSV, FLU A AND B QUALITATIVE RT-PCR, [...] 8a panel, urine (01/13/2025 7:17 AM EDT) Only the most recent of5 resultswithin the time period is included. Amphetamine Screen, Ur Negative Negative LAB CHEMISTRY METHOD 5 9:16 AM [facility] Comment:Certain OTC medicati ons containing ephedrine, phenylephrine, pseudoephedrine and phenylpropanolamine can cause false positive results. Barbiturate Screen, Ur Negative Negative LAB CHEMISTRY METHOD 5 9:16 AM [facility] Benzodiazepine Screen, Ur Negative Negative LAB CHEMISTRY METHOD 5 9:16 AM [facility] Cocaine Screen, Ur Positive(A ) Negative LAB CHEMISTRY METHOD 5 9:16 AM [facility] Opiate Screen, Ur Negative Negative LAB CHEMISTRY METHOD 5 9:16 AM [facility] Cannabinoid (THC) Screen, Ur Positive(A ) Negative LAB CHEMISTRY METHOD 5 9:16 AM EDT [facility] Comment:Specimens from patie nts taking pantoprazole sodium (Protonix) have been shown to produce false positive results. Oxycodone Screen, Ur Negative Negative LAB CHEMISTRY METHOD 5 9:16 AM EDT [facility] Fentanyl, Ur Negative Negative LAB CHEMISTRY METHOD 5 9:16 AM EDT [facility] Urine Urine specimen obtained by clean catch procedure / Unknown Non-blood Collection / Unknown 01/13/2025 7:17 AM EDT 01/13/2025 8:13 AM EDT Narrative [facility] - 01/13/2025 9:16 AM EDT [...] MD LAB URINE ORDERABLES Final Resu lt [facility] [address] [place] [address], * Buprenorphine screen, urine (01/13/2025 7:17 AM EDT) Only the most recent of5 resultswithin the time period is included. Buprenorphine Screen Urine Negative Negative LAB CHEMISTRY METHOD 01/13/2025 8:45 AM EDT [facility] Urine Urine specimen obtained by clean catch procedure / Unknown Non-blood Collection / Unknown 01/13/2025 7:17 AM EDT 01/13/2025 8:13 AM EDT Narrative [facility] - 01/13/2025 8:45 AM EDT Assay cutoff 5 ng/mL Semi-quantitative assay for screening purposes only. Unconfirmed screening result should not be used for non-medical purposes. *ALTERNATE METHOD CONFIRMATION DONE UPON REQUEST ONLY* us Abel Mistry MD LAB URINE ORDERABLES Final Resu lt Performing Organization Address [facility] de Phone Number [facility] [address] [place] [address], [place] [phone] * Methadone, urine (01/13/2025 7:17 AM EDT) Only the most recent of5 resultswithin the time period is included. Methadone Screen, Urine Negative Negative LAB CHEMISTRY METHOD 01/13/2025 8:53 AM EDT [facility] Comment: Assay cutoff 300 ng/mL [...] ORDERABLES Final Resu lt Performing Organization Address [facility] de Phone Number [facility] [address] [place] [address], [place] [phone] * Phencyclidine, urine (01/13/2025 7:17 AM EDT) Only the most recent of5 resultswithin the time period is included. PCP Scrn, Ur Negative Negative LAB CHEMISTRY METHOD 01/13/2025 8:45 AM EDT [facility] Comment: Assay cutoff 25 ng/mL Semi-quantitative assay for screening purposes only. Unconfirmed screening result should not be used for non-medical purposes. *ALTERNATE METHOD CONFIRMATION DONE UPON REQUEST ONLY* Urine Urine specimen obtained by clean catch procedure / Unknown Non-blood Collection / Unknown 01/13/2025 7:17 AM EDT 01/13/2025 8:13 AM EDT Abel Mistry MD LAB URINE ORDERABLES Final Resu lt [facility] [address] [place] [address], [place] [phone] * CBC auto differential (01/12/2025 10:08 PM EDT) Only the most recent of6 resultswithin the time period is included. WBC 9.9 4.8 - 10.8 K/mcL LAB HEMETOLOGY METHOD 01/12/2025 10:37 PM EDT [facility] RBC 5.20 4.50 - 5.50 M/mcL LAB HEMETOLOGY METHOD 01/12/2025 10:37 PM EDT [facility] Hemoglobin 16.4 13.5 - 17.5 g/dL LAB HEMETOLOGY METHOD 01/12/2025 10:37 PM EDT [facility] Hematocrit 48.0 42.0 - 54.0 % LAB HEMETOLOGY METHOD 01/12/2025 10:37 PM EDT [facility] MCV 91.8 79.0 - 98.0 FL LAB HEMETOLOGY METHOD 01/12/2025 10:37 PM EDT [facility] MCH 31.4 27.0 - 32.0 pcg LAB HEMETOLOGY METHOD 01/12/2025 10:37 PM EDT [facility] MCHC 34.2 32.0 - 37.0 g/dL LAB HEMETOLOGY METHOD 01/12/2025 10:37 PM EDT [facility] RDW 13.1 11.0 - 15.0 % LAB HEMETOLOGY METHOD 01/12/2025 10:37 PM EDT [facility] Platelets 224 130 - 400 K/mcL LAB [facility] MPV 10.4 7.0 - 11.0 FL LAB [facility]EMETOLOGY METHOD 01/12/2025 10:37 [facility] NRBC 0.0 <1.0 % LAB HEMETOLOGY METHOD 01/12/2025 10:37 PM EDT [facility] NRBC Absolute 0.00 <0.10 K/mcL LAB [facility]/12[facility]25 10[facility] Neutrophils Relative 52.3 % LAB HEMETOLOGY METHOD 01/12/2025 10:37 PM [facility] Lymphocytes Relative 35.6 % LAB HEMETOLOGY METHOD 01/12/2025 10:37 PM [facility] Monocytes Relative 7.7 % LAB HEMETOLOGY METHOD 01/12/2025 10:37 PM [facility] Eosinophils Relative 3.7 % LAB HEMETOLOGY METHOD 01/12/2025 10:37 PM [facility] Basophils Relative 0.5 % LAB HEMETOLOGY METHOD 01/12/2025 10:37 PM EDT [facility] Immature Granulocytes Relative 0.2 % LAB [facility]ETOLOGY METHOD [facility]/12[facility]2025 10:37 [facility] Neutrophils Absolute 5.18 1.50 - 7.00 K/mcL LAB HEMETOLOGY METHOD 01/12/2025 10:37 [facility] Lymphocytes Absolute 3.53 1.00 - 5.00 K/mcL LAB HEMETOLOGY METHOD 01/12/2025 10:37 [facility] Monocytes Absolute 0.76 0.20 - 1.00 K/mcL LAB HEMETOLOGY METHOD 01/12/2025 10:37 PM EDT [facility] Eosinophils Absolute 0.37 0.00 - 0.50 K/[facility] LAB HEMETOLOGY METHOD 01/12/2025 10:37 PM EDT [facility] Basophils Absolute 0.05 0.00 - 0.20 K/[facility] LAB HEMETOLOGY METHOD 01/12/2025 10:37 PM EDT [facility] Immature Granulocytes Absolute 0.02 0.00 - 0.03 K/[facility] LAB HEMETOLOGY METHOD 01/12/2025 10:37 PM EDT [facility] Blood Venous blood specimen / Unknown 01/12/2025 10:08 PM EDT 01/12/2025 10:33 PM EDT us Abel Mistry MD LAB BLOOD ORDERABLES Final Resu lt Performing Organization Address City/[facility]/ZIP Co de Phone Number [facility] [address] [place] [address], [place] [phone] * Ethanol (01/12/2025 10:08 PM EDT) Only the most recent of6 resultswithin the time period is included. Ethanol Level <3 0 - 10 mg/dL LAB CHEMISTRY METHOD 01/12/2025 11:01 PM EDT [facility] Blood Venous blood specimen / Unknown 01/12/2025 10:08 PM EDT 01/12/2025 10:32 PM EDT us Abel Mistry MD LAB BLOOD ORDERABLES Final Resu lt [facility] [address] [place] [address], [place] [phone] * (ABNORMAL) Acetaminophen level (01/12/2025 10:08 PM EDT) Only the most recent of6 resultswithin the time period is included. Acetaminophen Level <2.0(L) 10.0 - 30.0 mcg/mL LAB CHEMISTRY METHOD 01/12/2025 11:10 PM EDT [facility] Blood Venous blood specimen / Unknown 01/12/2025 10:08 PM EDT 01/12/2025 10:32 PM EDT us Abel Mistry MD LAB BLOOD ORDERABLES Final Resu lt Performing Organization Address [facility] Co de Phone Number [facility] [address] [place] [address], [place] [phone] * Salicylate level (01/12/2025 10:08 PM EDT) Only the most recent of6 resultswithin the time period is included. Salicylate Level 2.6 2.0 - 29.0 mg/dL LAB CHEMISTRY METHOD 01/12/2025 11:01 PM EDT [facility] Blood Venous blood specimen / Unknown 01/12/2025 10:08 PM EDT 01/12/2025 10:32 PM EDT us Abel Mistry MD LAB BLOOD ORDERABLES Final Resu lt Performing Organization Address [facility]/ZIP Co de Phone Number [facility] [address] [place] [address], [place] [phone] * Comprehensive metabolic panel (01/12/2025 10:08 PM EDT) Only the most recent of6 resultswithin the time period is included. Sodium 141 133 - 145 mmol/L LAB CHEMISTRY METHOD 01/12/2025 11:01 PM EDT [facility] Potassium 3.8 3.5 - 5.5 mmol/L LAB CHEMISTRY METHOD 01/12/2025 11:01 PM EDT [facility] Chloride 106 96 - 110 mmol/L LAB CHEMISTRY METHOD 01/12/2025 11:01 PM [facility] CO2 30 21 - 32 mmol/L LAB CHEMISTRY METHOD 01/12/2025 11:01 PM [facility] Anion Gap 5 3 - 11 LAB CHEMISTRY METHOD 01/12/2025 11:01 PM [facility] Glucose 94 70 - 100 mg/dL LAB CHEMISTRY METHOD 01/12/2025 11:01 PM [facility] BUN 10 5 - 25 mg/dL LAB CHEMISTRY METHOD 01/12/2025 11:01 PM [facility] Creatinine 0.76 0.70 - 1.30 mg/dL LAB CHEMISTRY METHOD 01/12/2025 11:01 PM [facility] eGFR 120 >=60 mL/min/1. 73m2 LAB CHEMISTRY METHOD 01/12/2025 11:01 PM [facility] Comment:Calculation based on the??Chronic Kidney Disease Epidemiology Collaboration (CKD-EPI) equation refit??without adjustment for race. BUN/Creatinine Ratio 13.2 LAB CHEMISTRY METHOD 01/12/2025 11:01 PM [facility] Calcium 9.6 8.5 - 10.5 mg/dL LAB CHEMISTRY METHOD 01/12/2025 11:01 [facility] AST (SGOT) 27 10 - 42 unit/L LAB CHEMISTRY METHOD 01/12/2025 11:01 [facility] ALT (SGPT) 34 10 - 60 unit/L LAB CHEMISTRY METHOD 01/12/2025 11:01 PM [facility] Alkaline Phosphatase 67 42 - 121 unit/L LAB CHEMISTRY METHOD 01/12/2025 11:01 [facility] Total Protein 6.9 6.0 - 8.0 g/dL LAB CHEMISTRY METHOD 01/12/2025 11:01 PM [facility] Albumin 4.0 3.2 - 5.0 g/dL LAB CHEMISTRY METHOD 01/12/2025 11:01 PM EDT [facility] Total Bilirubin 0.6 0.0 - 1.4 mg/dL LAB CHEMISTRY METHOD 01/12/2025 11:01 PM EDT [facility] Blood Venous blood specimen / Unknown 01/12/2025 10:08 PM EDT 01/12/2025 10:32 PM EDT us Abel Mistry MD LAB BLOOD ORDERABLES Final Resu lt Performing Organization Address [facility]/ZIP Co de Phone Number [facility] [address] [place] [address], [place] [phone] * (ABNORMAL) [place] level (11/24/2024 9:21 PM EST) Only the most recent of2 resultswithin the time period is included. [facility] [place] Level <0.2(L) 0.6 - 1.2 mEq/L LAB CHEMISTRY METHOD 11/25/2024 2:36 AM EST [facility] Blood Venous blood specimen / Unknown Venipuncture / Unknown 11/24/2024 9:21 PM EST 11/24/2024 9:47 PM EST us Abel Mistry MD LAB BLOOD ORDERABLES Final Resu lt Performing Organization Address City/[facility]/ZIP Co de Phone Number [facility] [address] [place] [address], [place] [phone] * (ABNORMAL) [id number], RSV, Influenza A and B qualitative RT-PCR (11/19/2024 2:56 AM EST) [facility] Influenza A PCR Not Detected Not Detected LAB MICROBIOLOGY METHOD 11/19/2024 4:42 AM EST [facility] Influenza B PCR Not Detected Not Detected LAB MICROBIOLOGY METHOD 11/19/2024 4:42 AM EST [facility] RSV PCR Detected(A) Not Detected LAB MICROBIOLOGY METHOD 11/19/2024 4:42 AM EST [facility] SARS COV-2 Not Detected Not Detected LAB MICROBIOLOGY METHOD 11/19/2024 4:42 AM EST [facility] Swab Both anterior nares / Unknown Non-blood Collection / Unknown 11/19/2024 2:56 AM EST 11/19/2024 3:55 AM EST Narrative [facility] - 11/19/2024 4:42 AM EST Disclaimer: ??Testing was performed using the [employer] GeneXpert Xpress SARS-CoV-2 _Flu_RSV PLUS PCR assay. [...] for Healthcare providers can be found at https://www.fda.gov/media/716543/download. ?? Fact sheet for Healthcare patients can be found at https://www.fda.gov/media/558225/download. us Alberta Crystal MD LAB MICROBIOLOGY - GENER AL ORDERABLES Final Result [facility] [address] [place] [address], * Valproic acid level, total (11/17/2024 8:03 AM EST) [facility] Valproic Acid, Total 56 50 - 100 mcg/mL LAB CHEMISTRY METHOD 11/17/2024 9:06 AM EST [facility] Blood Venous blood specimen / Unknown Venipuncture / Unknown 11/17/2024 8:03 AM EST 11/17/2024 8:35 AM EST Pierre Munoz DO LAB BLOOD ORDERABLES Final Result [facility] [address] [place] [address], [place] [phone] * Fairplay top urine tube (10/29/2024 10:29 PM EST) [facility] Extra Tube Hold for add-ons. 10/30/2024 12:02 AM EST [facility] Comment:Auto resulted. Urine Urine specimen obtained by clean catch procedure / Unknown Non-blood Collection / Unknown 10/29/2024 10:29 PM EST 10/29/2024 10:57 PM EST Nadiya BERNARD LAB URINE ORDERABLES Final Resul t Performing Organization Address City/[facility]/ZIP Co de Phone Number [facility] [address] [place] [address], [place] [phone] from Last 3 Months Insurance MEDICARE MEDICAID - [place] Care Teams Director Of Recruiting Relationship Specialty Start Date End Date Sreekanth Hurtado MD [address] PCP - General Psychiatry 01/01/25
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
[2025-01-14 05:52] LABS: Amphetamine Screen Urine Not Detected (Not Detect); Barbiturates, Urine Not Detected (Not Detect); Benzodiazepines Screen Urine Not Detected (Not Detect); Buprenorphine Scr Not Detected (Not Detect); Cannabinoid Screen Urine POSITIVE (Not Detect); Cocaine Screen Urine POSITIVE (Not Detect); Fentanyl, urine Not Detected (Not Detect); Methadone Screen, Urine Not Detected (Not Detect); Opiate Screen Urine Not Detected (Not Detect); Oxycodone Screen Urine Not Detected (Not Detect); Phencyclidine Screen Urine Not Detected (Not Detect)
[2025-01-14 06:29] VITALS: BP 101/60; PULSE 68; RESP 16; TEMP 37; O2SAT 98
--- NOTE | 2025-01-14 07:29 | PC.NURSE ---
Care of Pt assumed at change of shift. Pt is currently awake and eating breakfast. NAD noted at this time.
--- NOTE | 2025-01-14 14:50 | MHC.CARE ---
Per Adriane Awad, ACCOUNT UNDERWRITER Pt can be discharged
[2025-01-14 15:02] VITALS: BP 101/60; PULSE 68; RESP 16; TEMP 37; O2SAT 98
== END 2025-01-14 15:18 | disposition home or self-care (01) ==
PROVIDERS: Emergency Provider Emergency Medicine
DX: F25.9 Schizoaffective disorder, unspecified (principal); F41.9 Anxiety disorder, unspecified; Z87.891 Personal history of nicotine dependence; Z79.899 Other long term (current) drug therapy; Z51.81 Encounter for therapeutic drug level monitoring
CPT/HCPCS: 80307; 99284; S9485

== ENCOUNTER 2025-03-18 19:16 | Inpatient (IN) | payer MEDICARE, MEDICAID, SELFPAY ==
[2025-03-18 19:41] VITALS: BP 118/73; PULSE 90; RESP 16; TEMP 36.8; O2SAT 94
[2025-03-18 20:11] VITALS: BMI 26.7
[2025-03-18] MEDS: Atorvastatin Calcium 10 MG TABLET PO (23:29)
[2025-03-18] MEDS: OLANZapine 10 MG TABLET 30 MG PO (23:30)
[2025-03-18] MEDS: Lithium Carbonate ER 450 MG TABLET.ER 900 MG PO (23:30)
[2025-03-18] MEDS: Divalproex Sodium 500 MG TABLET.DR 1500 MG PO (23:30)
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
[2025-03-19] MEDS: Levothyroxine Sodium 75 MCG TABLET PO (06:36)
[2025-03-19] MEDS: Omeprazole 20 MG CAPSULE.DR PO (06:36)
[2025-03-19 07:45] VITALS: BP 93/54; PULSE 66; RESP 16; TEMP 36.6; O2SAT 96
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
[2025-03-19] MEDS: risperiDONE 2 MG TABLET PO (11:42)
[2025-03-19] MEDS: Nicotine Polacrilex 2 MG GUM 4 MG BUCCAL ×2 (17:20→20:11)
[2025-03-19 20:00] VITALS: BP 124/73; PULSE 104; RESP 18; TEMP 37; O2SAT 98
[2025-03-19] MEDS: Atorvastatin Calcium 10 MG TABLET PO (20:09)
[2025-03-19] MEDS: Divalproex Sodium 500 MG TABLET.DR 1500 MG PO (20:10)
[2025-03-19] MEDS: Lithium Carbonate ER 450 MG TABLET.ER 900 MG PO (20:10)
[2025-03-19] MEDS: OLANZapine 10 MG TABLET 30 MG PO (20:10)
[2025-03-20] MEDS: Levothyroxine Sodium 75 MCG TABLET PO (06:32)
[2025-03-20 07:45] VITALS: BP 93/55; PULSE 65; RESP 14; TEMP 36.7; O2SAT 97
--- NOTE | 2025-03-20 08:11 | P.PNPSI_ITS ---
Subjective Subjective Date of Service: 03/20/25 Reason For Visit: Paranoid Schizophrenia Subjective Notes: Conditional Voluntary Healthcare Proxy: No Guardianship: No Medical Problems Affecting Mental Status: No Interim History: 34 yo with osychotic do lying in bed, isolating- denying all problems to this provider- nursing reports paranoid, isolating, med/meal compliant, irritable with others- Medication Compliance: Yes Side effects from medications: No Attending Groups: No Review of Systems Acute medical concerns: No Medical Review of Systems: unchanged Mental Status Exam Mental Status Exam Narrative: lying in bed in [place] poor eye contact minimally cooperative- appears guarded Diagnostics Vital Signs (24Hr): Vital Signs - 24 hr 03/19/25 20:00 Temperature 98.6 F Pulse Rate 104 H Respiratory Rate 18 Blood Pressure 124/73 Pulse Oximetry 98 Oxygen Delivery Method Room Air BMI result Body Mass Index 26.7 Medications Medications Current Medications Acetaminophen (Acetaminophen 325 Mg Tablet) 650 mg PO Q6H PRN PRN Reason: Headache/Pain, Scale 1-10 Al Hydroxide/Mg Hydroxide (Magnesium Hydrox/Alum Hydrox 30 Ml Oral.Susp) 30 ml PO Q6H PRN PRN Reason: Heartburn/Nausea Atorvastatin Calcium (Atorvastatin Calcium 10 Mg Tablet) 10 mg PO BEDTIME [facility] Last Admin: 03/19/25 20:09 Dose: 10 mg Divalproex Sodium (Divalproex Sodium 500 Mg Tablet.Dr) 1,500 mg PO BEDTIME [facility] Last Admin: 03/19/25 20:10 Dose: 1,500 mg Hydroxyzine HCl (Hydroxyzine Hcl 25 Mg Tablet) 25 mg PO Q6H PRN PRN Reason: mild anxiety Levothyroxine Sodium (Levothyroxine Sodium 75 Mcg Tablet) 75 mcg PO DAILY@0600 [facility] Last Admin: 03/20/25 06:32 Dose: 75 mcg [place] Carbonate ([place] Carbonate Er 450 Mg Tablet.Er) 900 mg PO BEDTIME [facility] Last Admin: 03/19/25 20:10 Dose: 900 mg Magnesium Hydroxide (Milk Of Magnesia 30 Ml Oral.Susp) 30 ml PO DAILY PRN PRN Reason: Constipation Nicotine Polacrilex (Nicotine Polacrilex 2 Mg Gum) 4 mg BUCCAL Q2H PRN PRN Reason: Nicotine Cravings Last Admin: 03/19/25 20:11 Dose: 4 mg Olanzapine (Olanzapine 10 Mg Tablet) 30 mg PO BEDTIME [facility] Last Admin: 03/19/25 20:10 Dose: 30 mg Omeprazole (Omeprazole 20 Mg Capsule.Dr) 20 mg PO 0630 [facility] Last Admin: 03/19/25 06:36 Dose: 20 mg Risperidone (Risperidone 2 Mg Tablet) 2 mg PO DAILY [facility] Last Admin: 03/19/25 11:42 Dose: 2 mg Allergies Allergies Allergy/AdvReac Type Severity Reaction Status Date / Time quetiapine [From SEROQUEL] Allergy Severe ANAPHYLAXIS Verified 01/13/25 23:00 haloperidol [HALOPERIDOL] Allergy Intermediate SWELLING Verified 01/13/25 23:00 trazodone Allergy Unknown Verified 01/13/25 23:00 Assessment & Plan Assessment & Plan (1) Schizoaffective disorder: Qualifiers: Schizoaffective disorder type: unspecified Qualified Code(s): F25.9 - Schizoaffective disorder, unspecified Status: Acute Code(s): F25.9 - Schizoaffective disorder, unspecified (2) Antisocial personality disorder: Status: Acute Code(s): F60.2 - Antisocial personality disorder (3) Cocaine use disorder: Status: Acute Code(s): F14.10 - Cocaine abuse, uncomplicated (4) Alcohol use disorder: Status: Acute Code(s): F10.90 - Alcohol use, unspecified, uncomplicated Assessment and Plan: done with [facility] no withdrawal Plan Patient is a 34-year-old male with history of schizoaffective disorder, antisocial personality d/o, alcohol use d/o and cocaine use d/o who self pres ented to ER requesting help for dental appointment then left and returned and was placed on section 12 d/t disorganized thought content secondary to medication noncompliance. Plan: CV 15 minute safety checks continue home medications obtain collateral encourage medication compliance and attending groups discharge planning 03/20/25- no change to current Reason for continued inpatient stay Substantial Risk for: inability to function and rapid decompensation Time Spent With Patient Time: Total time managing care of this patient today ____ minutes.
[2025-03-20] MEDS: Omeprazole 20 MG CAPSULE.DR PO (09:11)
[2025-03-20] MEDS: Nicotine Polacrilex 2 MG GUM 4 MG BUCCAL ×3 (17:18→22:27)
--- NOTE | 2025-03-20 19:54 | PC.NURSE ---
Sean was observed by [facility] staff punching the wall. Patient had a small abrasion on one of his fingers and was given a band id. Patient refused to see MD or have x-rays done. Hospitalist notified.
[2025-03-20] MEDS: Lithium Carbonate ER 450 MG TABLET.ER 900 MG PO (20:03)
[2025-03-20] MEDS: Divalproex Sodium 500 MG TABLET.DR 1500 MG PO (20:04)
[2025-03-20] MEDS: Atorvastatin Calcium 10 MG TABLET PO (20:04)
[2025-03-20] MEDS: OLANZapine 10 MG TABLET 30 MG PO (20:04)
[2025-03-21] MEDS: Levothyroxine Sodium 75 MCG TABLET PO (06:37)
[2025-03-21 08:00] VITALS: PULSE 78; RESP 14; TEMP 36.5; O2SAT 96
[2025-03-21] MEDS: Omeprazole 20 MG CAPSULE.DR PO (09:41)
--- NOTE | 2025-03-21 11:17 | P.PNPSI_ITS ---
Subjective Subjective Date of Service: 03/21/25 Reason For Visit: Paranoid Schizophrenia Subjective Notes: Conditional Voluntary Healthcare Proxy: No Guardianship: No Medical Problems Affecting Mental Status: No Interim History: 34 yo who had episode of aggression and punching the wall - can't say he won't do it again but refuses further med change, guarded and vague about what triggered it- Explains why he ended up here- was that hospital in [place] area dced him to respit but where he got dropped was not respit- and he freaked out and ended up in ER again- hoping to go to respit - and have correct dc to one- this time- Referred patient to on Saturday Pt refuses any medication that he is not already on - Medication Compliance: Intermittent (refusing am risperidone consistently) Side effects from medications: No Attending Groups: No Review of Systems Acute medical concerns: No Medical Review of Systems: changed (swollen red hand from punching wall) Mental Status Exam Mental Status Exam Patient Appearance: Appropriate Patient Orientation: Person, Place and Situation Level of Consciousness: Awake and Alert Patient Behavior: Guarded, Resistive to Care, Impulsive and Poor Eye Contact Mood Description: Suspicious Affect Description: Blunted Patient Cognition Impaired: No Ability to Follow Directions: Fair Speech Pattern: Clear Hallucinations: None Delusions: Paranoid Ideation Thought Process: Intact and Goal Oriented Depressive Symptoms: Increased Irritability Judgement: Poor Diagnostics Vital Signs (24Hr): Vital Signs - 24 hr 03/21/25 08:00 Temperature 97.7 F Pulse Rate 78 Respiratory Rate 14 Pulse Oximetry 96 Oxygen Delivery Method Room Air BMI result Body Mass Index 26.7 Medications Medications Current Medications Acetaminophen (Acetaminophen 325 Mg Tablet) 650 mg PO Q6H PRN PRN Reason: Headache/Pain, Scale 1-10 Al Hydroxide/Mg Hydroxide (Magnesium Hydrox/Alum Hydrox 30 Ml Oral.Susp) 30 ml PO Q6H PRN PRN Reason: Heartburn/Nausea Atorvastatin Calcium (Atorvastatin Calcium 10 Mg Tablet) 10 mg PO BEDTIME [facility] Last Admin: 03/20/25 20:04 Dose: 10 mg Divalproex Sodium (Divalproex Sodium 500 Mg Tablet.) 1,500 mg PO BEDTIME [facility] Last Admin: 03/20/25 20:04 Dose: 1,500 mg Hydroxyzine HCl (Hydroxyzine Hcl 25 Mg Tablet) 25 mg PO Q6H PRN PRN Reason: mild anxiety Levothyroxine Sodium (Levothyroxine Sodium 75 Mcg Tablet) 75 mcg PO DAILY@0600 [facility] Last Admin: 03/21/25 06:37 Dose: 75 mcg [place] Carbonate ([place] Carbonate Er 450 Mg Tablet.Er) 900 mg PO BEDTIME [facility] Last Admin: 03/20/25 20:03 Dose: 900 mg Magnesium Hydroxide (Milk Of Magnesia 30 Ml Oral.Susp) 30 ml PO DAILY PRN PRN Reason: Constipation Nicotine Polacrilex (Nicotine Polacrilex 2 Mg Gum) 4 mg BUCCAL Q2H PRN PRN Reason: Nicotine Cravings Last Admin: 03/20/25 22:27 Dose: 4 mg Olanzapine (Olanzapine 10 Mg Tablet) 30 mg PO BEDTIME [facility] Last Admin: 03/20/25 20:04 Dose: 30 mg Omeprazole (Omeprazole 20 Mg Capsule.Dr) 20 mg PO 0630 [facility] Last Admin: 03/21/25 09:41 Dose: 20 mg Risperidone (Risperidone 2 Mg Tablet) 2 mg PO DAILY [facility] Last Admin: 03/21/25 10:31 Dose: Not Given Allergies Allergies Allergy/AdvReac Type Severity Reaction Status Date / Time quetiapine [From SEROQUEL] Allergy Severe ANAPHYLAXIS Verified 01/13/25 23:00 haloperidol [HALOPERIDOL] Allergy Intermediate SWELLING Verified 01/13/25 23:00 trazodone Allergy Unknown Verified 01/13/25 23:00 Assessment & Plan Assessment & Plan (1) Schizoaffective disorder: Qualifiers: Schizoaffective disorder type: unspecified Qualified Code(s): F25.9 - Schizoaffective disorder, unspecified Status: Acute Code(s): F25.9 - Schizoaffective disorder, unspecified (2) Antisocial personality disorder: Status: Acute Code(s): F60.2 - Antisocial personality disorder (3) Cocaine use disorder: Status: Acute Code(s): F14.10 - Cocaine abuse, uncomplicated (4) Alcohol use disorder: Status: Acute Code(s): F10.90 - Alcohol use, unspecified, uncomplicated Assessment and Plan: done with [facility] no withdrawal Plan Patient is a 34-year-old male with history of schizoaffective disorder, ant isocial personality d/o, alcohol use d/o and cocaine use d/o who self presented to ER requesting help for dental appointment then left and returned and was placed on section 12 d/t disorganized thought content secondary to medication noncompliance. Plan: CV 15 minute safety checks continue home medications obtain collateral encourage medication compliance and attending groups discharge planning 03/20/25- no change to current - though refusing added on risperidone 03/21/25- hoping to go to respit, doesn't show good behavioral control or insight however with punched wall - Patient educated on: medication risk/benefits Informed Consent: further education needed Reason for continued inpatient stay Substantial Risk for: harm to self, harm to others and rapid decompensation Time Spent With Patient Time: Total time managing care of this patient today ____ minutes.
[2025-03-21] MEDS: Nicotine Polacrilex 2 MG GUM 4 MG BUCCAL ×2 (19:01→22:43)
[2025-03-21] MEDS: Divalproex Sodium 500 MG TABLET.DR 1500 MG PO (20:32)
[2025-03-21] MEDS: OLANZapine 10 MG TABLET 30 MG PO (20:32)
[2025-03-21] MEDS: Atorvastatin Calcium 10 MG TABLET PO (20:33)
[2025-03-21] MEDS: Lithium Carbonate ER 450 MG TABLET.ER 900 MG PO (20:33)
[2025-03-22] MEDS: Omeprazole 20 MG CAPSULE.DR PO (06:30)
[2025-03-22] MEDS: Levothyroxine Sodium 75 MCG TABLET PO (06:30)
--- NOTE | 2025-03-22 09:52 | P.PNPSI_ITS ---
Subjective Subjective Date of Service: 03/22/25 Reason For Visit: Paranoid Schizophrenia Subjective Notes: Conditional Voluntary Interim History: Keeping to self. laying in bed. guarded. pt reports feeling better ; however declined to go into detail. denies SI/HI/VH/AH. Pt stated, I don't need anything. I just want to go to respite . signal worker aware. pt declined to do labs. Continue current tx plan. Medication Compliance: Yes Side effects from medications: No Attending Groups: No Mental Status Exam Mental Status Exam Narrative: Pt is alert and oriented; behavior is cooperative and calm, guarded; dressed in casual attire; mood is described as better ; eye contact appropriate; Speech is normal rate, volume and not pressured; thought process is organized and goal directed; Thought content is on tx; denies SI/HI/VH/AH. Diagnostics Vital Signs (24Hr): BMI result Body Mass Index 26.7 Medications Medications Current Medications Acetaminophen (Acetaminophen 325 Mg Tablet) 650 mg PO Q6H PRN PRN Reason: Headache/Pain, Scale 1-10 Al Hydroxide/Mg Hydroxide (Magnesium Hydrox/Alum Hydrox 30 Ml Oral.Susp) 30 ml PO Q6H PRN PRN Reason: Heartburn/Nausea Atorvastatin Calcium (Atorvastatin Calcium 10 Mg Tablet) 10 mg PO BEDTIME [facility] Last Admin: 03/21/25 20:33 Dose: 10 mg Divalproex Sodium (Divalproex Sodium 500 Mg Tablet.Dr) 1,500 mg PO BEDTIME [facility] Last Admin: 03/21/25 20:32 Dose: 1,500 mg Hydroxyzine HCl (Hydroxyzine Hcl 25 Mg Tablet) 25 mg PO Q6H PRN PRN Reason: mild anxiety Levothyroxine Sodium (Levothyroxine Sodium 75 Mcg Tablet) 75 mcg PO DAILY@0600 [facility] Last Admin: 03/22/25 06:30 Dose: 75 mcg [place] Carbonate ([place] Carbonate Er 450 Mg Tablet.Er) 900 mg PO BEDTIME [facility] Last Admin: 03/21/25 20:33 Dose: 900 mg Magnesium Hydroxide (Milk Of Magnesia 30 Ml Oral.Susp) 30 ml PO DAILY PRN PRN Reason: Constipation Nicotine Polacrilex (Nicotine Polacrilex 2 Mg Gum) 4 mg BUCCAL Q2H PRN PRN Reason: Nicotine Cravings Last Admin: 03/21/25 22:43 Dose: 4 mg Olanzapine (Olanzapine 10 Mg Tablet) 30 mg PO BEDTIME [facility] Last Admin: 03/21/25 20:32 Dose: 30 mg Omeprazole (Omeprazole 20 Mg Capsule.Dr) 20 mg PO 0630 [facility] Last Admin: 03/22/25 06:30 Dose: 20 mg Risperidone (Risperidone 2 Mg Tablet) 2 mg PO DAILY [facility] Last Admin: 03/22/25 08:57 Dose: Not Given Allergies Allergies Allergy/AdvReac Type Severity Reaction Status Date / Time quetiapine [From SEROQUEL] Allergy Severe ANAPHYLAXIS Verified 01/13/25 23:00 haloperidol [HALOPERIDOL] Allergy Intermediate SWELLING Verified 01/13/25 23:00 trazodone Allergy Unknown Verified 01/13/25 23:00 Assessment & Plan Assessment & Plan (1) Schizoaffective disorder: Qualifiers: Schizoaffective disorder type: unspecified Qualified Code(s): F25.9 - Schizoaffective disorder, unspecified Status: Acute Code(s): F25.9 - Schizoaffective disorder, unspecified (2) Antisocial personality disorder: Status: Acute Code(s): F60.2 - Antisocial personality disorder (3) Cocaine use disorder: Status: Acute Code(s): F14.10 - Cocaine abuse, uncomplicated (4) Alcohol use disorder: Status: Acute Code(s): F10.90 - Alcohol use, unspecified, uncomplicated Assessment and Plan: done with [facility] no withdrawal Plan Patient is a 34-year-old male with history of schizoaffective disorder, antisocial personality d/o, alcohol use d/o and cocaine use d/o who self presented to ER requesting help for dental appointment then left and returned and was placed on section 12 d/t disorganized thought content secondary to medication noncompliance. Plan: CV 15 minute safety checks continue home medications obtain collateral encourage medication compliance and attending groups discharge planning 03/20/25- no change to current - though refusing added on risperidone 03/21/25- hoping to go to respit, doesn't show good behavioral control or insight however with punched wall - 03/22: Keeping to self. laying in bed. guarded. pt reports feeling better ; however declined to go into detail. no behavior issues. denies SI/HI/VH/AH. Pt stated, I don't need anything. I just want to go to respite . signal worker aware. pt declined to do labs. Continue current tx plan. Patient educated on: diagnosis and medication risk/benefits Reason for continued inpatient stay Substantial Risk for: med/psych decompensation Time Spent With Patient Time: Total time managing care of this patient today __20__ minutes.
[2025-03-22] MEDS: Nicotine Polacrilex 2 MG GUM 4 MG BUCCAL ×4 (14:48→22:43)
[2025-03-22 19:40] VITALS: BP 119/67; PULSE 94; RESP 18; TEMP 36.4; O2SAT 98
[2025-03-22] MEDS: OLANZapine 10 MG TABLET 30 MG PO (19:41)
[2025-03-22] MEDS: Atorvastatin Calcium 10 MG TABLET PO (19:42)
[2025-03-22] MEDS: Lithium Carbonate ER 450 MG TABLET.ER 900 MG PO (19:42)
[2025-03-22] MEDS: Divalproex Sodium 500 MG TABLET.DR 1500 MG PO (19:42)
[2025-03-23] MEDS: chlorproMAZINE HCl 100 MG TABLET PO (00:04)
[2025-03-23] MEDS: Levothyroxine Sodium 75 MCG TABLET PO (05:59)
[2025-03-23 07:30] VITALS: BP 102/58; PULSE 79; RESP 14; TEMP 36.6; O2SAT 96
--- NOTE | 2025-03-23 15:26 | P.PNPSI_ITS ---
Subjective Subjective Date of Service: 03/23/25 Reason For Visit: Paranoid Schizophrenia Subjective Notes: Conditional Voluntary Interim History: Calm. Cooperative. Pt reports feeling good today; discussed discharging back to his care home tomorrow; pt agreed he feels ready for discharge. denies SI/HI/VH/AH. pt declined to do labs despite education. Medication Compliance: Yes Side effects from medications: No Attending Groups: No Mental Status Exam Mental Status Exam Narrative: Pt is alert and oriented; behavior is cooperative and calm, guarded; dressed in casual attire; mood is described as good ; eye contact appropriate; Speech is normal rate, volume and not pressured; thought process is organized; Thought content is on discharge; denies SI/HI/VH/AH. Diagnostics Vital Signs (24Hr): Vital Signs - 24 hr 03/22/25 19:40 03/23/25 07:30 Temperature 97.5 F 97.9 F Pulse Rate 94 79 Respiratory Rate 18 14 Blood Pressure 119/67 102/58 L Pulse Oximetry 98 96 Oxygen Delivery Method Room Air Room Air BMI result Body Mass Index 26.7 Medications Medications Current Medications Acetaminophen (Acetaminophen 325 Mg Tablet) 650 mg PO Q6H PRN PRN Reason: Headache/Pain, Scale 1-10 Al Hydroxide/Mg Hydroxide (Magnesium Hydrox/Alum Hydrox 30 Ml Oral.Susp) 30 ml PO Q6H PRN PRN Reason: Heartburn/Nausea Atorvastatin Calcium (Atorvastatin Calcium 10 Mg Tablet) 10 mg PO BEDTIME [facility] Last Admin: 03/22/25 19:42 Dose: 10 mg Divalproex Sodium (Divalproex Sodium 500 Mg Tablet.Dr) 1,500 mg PO BEDTIME [facility] Last Admin: 03/22/25 19:42 Dose: 1,500 mg Hydroxyzine HCl (Hydroxyzine Hcl 25 Mg Tablet) 25 mg PO Q6H PRN PRN Reason: mild anxiety Levothyroxine Sodium (Levothyroxine Sodium 75 Mcg Tablet) 75 mcg PO DAILY@0600 [facility] Last Admin: 03/23/25 05:59 Dose: 75 mcg Mcdade Carbonate (Mcdade Carbonate Er 450 Mg Tablet.Er) 900 mg PO BEDTIME [facility] Last Admin: 03/22/25 19:42 Dose: 900 mg Magnesium Hydroxide (Milk Of Magnesia 30 Ml Oral.Susp) 30 ml PO DAILY PRN PRN Reason: Constipation Naloxone HCl (Naloxone Hcl Nasal Take Home 4 Mg [place]) 8 mg NOSTRILALT ONCE ONE Stop: 03/24/25 08:01 Nicotine Polacrilex (Nicotine Polacrilex 2 Mg Gum) 4 mg BUCCAL Q2H PRN PRN Reason: Nicotine Cravings Last Admin: 03/22/25 22:43 Dose: 4 mg Olanzapine (Olanzapine 10 Mg Tablet) 30 mg PO BEDTIME [facility] Last Admin: 03/22/25 19:41 Dose: 30 mg Omeprazole (Omeprazole 20 Mg Capsule.Dr) 20 mg PO 0630 [facility] Last Admin: 03/23/25 06:52 Dose: Not Given Risperidone (Risperidone 2 Mg Tablet) 2 mg PO DAILY [facility] Last Admin: 03/23/25 13:24 Dose: Not Given Allergies Allergies Allergy/AdvReac Type Severity Reaction Status Date / Time quetiapine [From SEROQUEL] Allergy Severe ANAPHYLAXIS Verified 01/13/25 23:00 haloperidol [HALOPERIDOL] Allergy Intermediate SWELLING Verified 01/13/25 23:00 trazodone Allergy Unknown Verified 01/13/25 23:00 Assessment & Plan Assessment & Plan (1) Schizoaffective disorder: Qualifiers: Schizoaffective disorder type: unspecified Qualified Code(s): F25.9 - Schizoaffective disorder, unspecified Status: Acute Code(s): F25.9 - Schizoaffective disorder, unspecified (2) Antisocial personality disorder: Status: Acute Code(s): F60.2 - Antisocial personality disorder (3) Cocaine use disorder: Status: Acute Code(s): F14.10 - Cocaine abuse, uncomplicated (4) Alcohol use disorder: Status: Acute Code(s): F10.90 - Alcohol use, unspecified, uncomplicated Assessment and Plan: done with [facility] no withdrawal Plan Patient is a 34-year-old male with history of schizoaffective disorder, antisocial personality d/o, alcohol use d/o and cocaine use d/o who self presented to ER requesting help for dental appointment then left and returned and was placed on section 12 d/t disorganized thought content secondary to medication noncompliance. Plan: CV 15 minute safety checks continue home medications obtain collateral encourage medication compliance and attending groups discharge planning 03/20/25- no change to current - though refusing added on risperidone 03/21/25- hoping to go to [facility], doesn't show good behavioral control or insight however with punched wall - 03/22: Keeping to self. laying in bed. guarded. pt reports feeling better ; however declined to go into detail. no behavior issues. denies SI/HI/VH/AH. Pt stated, I don't need anything. I just want to go to respite . home health care social worker aware. pt declined to do labs. Continue current tx plan. 03/23: Calm. Cooperative. Pt reports feeling good today; discussed discharging back to his care home tomorrow; pt agreed he feels ready for discharge. denies SI/HI/VH/AH. pt declined to do labs despite education. Patient educated on: diagnosis and medication risk/benefits Reason for continued inpatient stay Substantial Risk for: stable for discharge Time Spent With Patient Time: Total time managing care of this patient today _15___ minutes.
[2025-03-23] MEDS: Nicotine Polacrilex 2 MG GUM 4 MG BUCCAL ×3 (16:51→22:46)
[2025-03-23] MEDS: Divalproex Sodium 500 MG TABLET.DR 1500 MG PO (20:28)
[2025-03-23] MEDS: Atorvastatin Calcium 10 MG TABLET PO (20:28)
[2025-03-23] MEDS: Lithium Carbonate ER 450 MG TABLET.ER 900 MG PO (20:29)
[2025-03-23] MEDS: OLANZapine 10 MG TABLET 30 MG PO (20:29)
[2025-03-24] MEDS: Nicotine Polacrilex 2 MG GUM 4 MG BUCCAL (05:40)
[2025-03-24] MEDS: Levothyroxine Sodium 75 MCG TABLET PO (05:45)
[2025-03-24] MEDS: Omeprazole 20 MG CAPSULE.DR PO (06:32)
[2025-03-24] MEDS: Naloxone HCl Nasal TAKE HOME 4 MG SPRAY 8 MG NOSTRILALT (07:38)
--- NOTE | 2025-03-24 09:13 | PM.PSYDC ---
DS: Providers Provider Date of Service: 03/24/25 Date of admission: 03/18/25 19:16 Date of discharge: 03/24/25 Primary care physician: Unknown Physician Admitting clinician: Edith Morales Attending physician on admission: Enmanuel Mcdowell Consults: 03/18/25 19:25 Consult to Hospitalist Routine Comment: [place] [facility] [place] Reason For Exam: Transfer pt Attending physician on discharge: Enmanuel Mcdowell Discharging clinician: Edith Morales DS: Diagnosis Discharge Diagnosis (1) Schizoaffective disorder: Status: Acute (2) Antisocial personality disorder: Status: Acute (3) Cocaine use disorder: Status: Acute (4) Alcohol use disorder: Status: Acute DS: Medications Discharge Medications Home Medications: Home Medications ?Medication ?Instructions ?Recorded ?Confirmed atorvastatin 10 mg tablet 10 mg PO BEDTIME 12/17/24 03/18/25 levothyroxine 75 mcg tablet 75 mcg PO DAILY@0600 disorder of 12/25/24 03/18/25 thyroid gland pantoprazole 40 mg tablet,delayed 40 mg PO DAILY@0630 12/25/24 03/18/25 release olanzapine 15 mg tablet 30 mg PO BEDTIME 01/12/25 03/18/25 risperidone 2 mg tablet (Risperdal) 2 mg PO DAILY 01/12/25 03/18/25 divalproex 500 mg tablet,delayed 1,500 mg PO BEDTIME 01/14/25 03/18/25 release lithium carbonate 450 mg 900 mg PO BEDTIME 01/14/25 03/18/25 tablet,extended release Mental Status Exam Mental Status Exam Narrative: Pt is alert and oriented; behavior is cooperative and calm; dressed in casual attire; mood is described as good ; eye contact appropriate; Speech is normal rate, volume and not pressured; thought process is organized; Thought content is on discharge; denies SI/HI/VH/AH. DS: Summary Hospital Course Hospital Course: Patient is a 34-year-old male with history of schizoaffective disorder, antisocial personality d/o, alcohol use d/o and cocaine use d/o who self presented to ER requesting help for dental appointment then left and returned and was placed on section 12 d/t disorganized thought content secondary to medication noncompliance. Per crisis report, patient initially presented for help with a dental appointment but then left ER to go smoke and get Orajel. Upon returning, he reported he was trying to save 2 girls from vampires . Patient was placed on section 12 due to disorganized thoughts. He denies SI/HI. patient was reportedly a missing person from [facility] on 03/18/25, after being a step-down from [facility]. Pt was recently also hospitalized at [place] between 02/16/25-02/25/25. It is reported that he flees his residence every 2 weeks or so, not medication compliant. Currently resides in a longterm environment. pt reported some use of cocaine, cannabis and alcohol. BAL 10 upon arrival. Mostly responding with one-word answers. When asked about his psychiatric symptoms patient states he has grown use to the hallucinations specifically ghosts . During admission assessment, patient presents alert and oriented x3. Calm. irritable edge. Patient declined to meet with T/W in unit office and wanted to stay in bed. Patient stated, I came here because I don't have anywhere to go and I felt safe here . He reports he would like a referral to [facility]. Patient kept assessment brief and stated, I'm too tired to talk right now then proceeded to close his eyes. Patient denies SI/HI/VH/AH. Plan: CV 15 minute safety checks continue home medications obtain collateral encourage medication compliance and attending groups discharge planning no change to current - though refusing added on risperidone hoping to go to [facility], doesn't show good behavioral control or insight however with punched wall - Keeping to self. laying in bed. guarded. pt reports feeling better ; however declined to go into detail. no behavior issues. denies SI/HI/VH/AH. Pt stated, I don't need anything. I just want to go to respite . 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 pt declined to do labs. Continue current tx plan. Calm. Cooperative. Pt reports feeling good today; discussed discharging back to his longterm tomorrow; pt agreed he feels ready for discharge. denies SI/HI/VH/AH. pt declined to do labs despite education. Patient reports he plans on following up with outpatient providers. Status at Discharge Cognitive/behavioral status at discharge: Patient has insight and demonstrates good judgment in terms of wanting to pursue treatment. Patient has a safety plan that includes presenting to the closest ER or calling 911 if feeling unsafe. Functional status at discharge: independent ambulation Overall status at discharge: patient is back to baseline Time Spent with Patient Time attestation: Total time managing care of this patient today _20___ minutes. Time spent: Less than 30 minutes Discharge Plan Discharge Anticipated Discharge Date/Time: 03/24/25 11:00 Patient Disposition: Home, Self-Care Discharge Diagnosis: Schizophrenia, Antisocial personality d/o, Cocaine use d/o, Alcohol use d/o Referrals: Dr. Sreekanth Odell (Psychiatry) [Other] - 04/13/25 10:20 am Referral Note: IN OFFICE APPOINTMENT [facility] [Provider Group] - 1 Week Referral Note: Please call [phone] to schedule a follow up appt within 7-10 days of discharge. Discharge Medications: Continued divalproex 500 mg tablet,delayed release (DR/EC) 1,500 mg PO BEDTIME lithium carbonate 450 mg tablet extended release 900 mg PO BEDTIME atorvastatin 10 mg tablet 10 mg PO BEDTIME levothyroxine 75 mcg tablet 75 mcg PO DAILY@0600 pantoprazole 40 mg tablet,delayed release (DR/EC) 40 mg PO DAILY@0630 olanzapine 15 mg tablet 30 mg PO BEDTIME risperidone [Risperdal] 2 mg Tablet 2 mg PO DAILY Discharge Orders: Discharge Order (Routine); Ordered 03/24/25 Ordered By: Edith Morales Diet: Regular diet Activity on Discharge: As tolerated Stand Alone Forms: Patient Portal Discharge page, Community Support Print Language: Choose Not To Answer Care Plan Goals: Maintain mood and safe behaviors Take medications as prescribed Continue to pursue sobriety Practice coping skills Continue with outpatient providers and reach out to them as needed Health Concerns: Mood stability and behaviors Sobriety Plan of Treatment: Follow up with your PCP, psychiatric provider and other outpatient providers regarding above concerns Take medications as prescribed Assessment: Patient has insight and demonstrates good judgment in terms of wanting to pursue treatment. Patient has a safety plan that includes presenting to the closest ER or calling 911 if feeling unsafe. Discharge Date/Time: 03/24/25 07:50
== END 2025-03-24 07:50 | disposition home or self-care (01) | DRG 885 ==
PROVIDERS: Admitting Provider Psychiatry & Neurology Psychiatry; Responsible Provider Registered Nurse; Visit Provider Psychiatry & Neurology Psychiatry
DX: F25.9 Schizoaffective disorder, unspecified (principal); F60.0 Paranoid personality disorder; F10.90 Alcohol use, unspecified, uncomplicated; F14.10 Cocaine abuse, uncomplicated; Z79.890 Hormone replacement therapy; Z79.899 Other long term (current) drug therapy

== ENCOUNTER → 2025-03-18 19:16 | Outpatient (BNV) | payer MEDICARE, MEDICAID, SELFPAY | PROVIDERS: Admitting Provider Psychiatry & Neurology Psychiatry; Visit Provider Nurse Practitioner Family | DX: F25.9 Schizoaffective disorder, unspecified (principal) | CPT/HCPCS: 99221 ==

== ENCOUNTER → 2025-03-18 19:16 | Outpatient (BNV) | payer MEDICARE, MEDICAID, SELFPAY | PROVIDERS: Admitting Provider Psychiatry & Neurology Psychiatry; Responsible Provider Registered Nurse; Visit Provider Psychiatry & Neurology Psychiatry | DX: F60.2 Antisocial personality disorder (principal); F25.9 Schizoaffective disorder, unspecified; F14.10 Cocaine abuse, uncomplicated; F10.90 Alcohol use, unspecified, uncomplicated | CPT/HCPCS: 99231 ==

== ENCOUNTER 2025-04-16 00:34 | Emergency (ER) | payer MEDICARE, MEDICAID, SELFPAY ==
[2025-04-16] VITALS (8 sets, daily range): BP systolic 108–118; BP diastolic 66–72; PULSE 78–120; RESP 14–20; TEMP 36.2–37.1; O2SAT 96–99; BMI 25.9
--- NOTE | 2025-04-16 00:52 | PC.NURSE ---
pt changed over, pt placed in bed 8. Provider into assess pt.
--- NOTE | 2025-04-16 00:55 | MHC.EDTECH ---
t/w attempted to draw lab work, pt refused due to him stating I'll get in trouble with the ., I just had labwork done at the hospital I left yesterday, but I will give a drug sample. RN AWARE.
--- NOTE | 2025-04-16 01:09 | ED.PSYCH ---
HPI - Psych General Chief Complaint: Psychiatric Symptoms Stated Complaint: crisis Time Seen by Provider: 04/16/25 00:45 Source: patient Mode of arrival: ambulatory Limitations: no limitations History of Present Illness ED Provider: Dr. Genesis Blum HPI Narrative: Patient comes to the emergency room by himself, patient states that he wants to stop taking his medications and will like to start drinking wine because taking meds is against his oriental orthodox. According to the patient, he is Syriac and therefore he needs to drink more wine. Also, patient stating that his mother is [place], and states that he does not belong to this part of the world. Related Data Home Medications ?Medication ?Instructions ?Recorded ?Confirmed atorvastatin 10 mg tablet 10 mg PO BEDTIME 12/17/24 03/18/25 levothyroxine 75 mcg tablet 75 mcg PO DAILY@0600 disorder of 12/25/24 03/18/25 thyroid gland pantoprazole 40 mg tablet,delayed 40 mg PO DAILY@0630 12/25/24 03/18/25 release olanzapine 15 mg tablet 30 mg PO BEDTIME 01/12/25 03/18/25 risperidone 2 mg tablet (Risperdal) 2 mg PO DAILY 01/12/25 03/18/25 divalproex 500 mg tablet,delayed 1,500 mg PO BEDTIME 01/14/25 03/18/25 release lithium carbonate 450 mg 900 mg PO BEDTIME 01/14/25 03/18/25 tablet,extended release Allergies Allergy/AdvReac Type Severity Reaction Status Date / Time quetiapine (From SEROQUEL) Allergy Severe ANAPHYLAXIS Verified 04/16/25 00:51 haloperidol (HALOPERIDOL) Allergy Intermediate SWELLING Verified 04/16/25 00:51 trazodone Allergy Unknown Verified 04/16/25 00:51 Review of Systems Review of Systems: Yes Other PMFSH Past Medical History Medical History Hallucination, visual Substance abuse Violent behavior Schizoaffective disorder Social History Social History Household Members: Other Household Members Other:: peers Housing: Other Housing Other:: prison Do you presently have visiting nurse or other home services: Yes (medications administered by prison) Unable to assess alcohol history related to: Unknown Alcohol intake: never Patient Tobacco Use Status: Refuse Tobacco use screen Tobacco use type: Cigarette Cigarettes Per Day: 3 Years Smoked: unsure Smoked in Last 30 Days: No e-Cigarette/Vaping Use: Never Used Second Hand Smoke Exposure: No Use of substances other than those prescribed or required for medical reasons: Yes Substance Use Type: Crack/Cocaine Advance Directives: No Advance Directives Information Provided: No Do you have a plan to hurt others: No Plan service: No Sexual orientation: Straight/Heterosexual Physical Exam Vital Signs: Vital Signs: Last Vital Signs Temp 97.2 F 04/16/25 08:55 Pulse 84 04/16/25 08:55 Resp 16 04/16/25 08:55 BP 118/72 04/16/25 08:55 Pulse Ox 96 04/16/25 08:55 O2 Del Method Room Air 04/16/25 08:55 BMI result Body Mass Index 25.9 Const: Other: Appearance: Alert. Oriented then she, no acute distress Eyes: Pupils equal, round and reactive to light. ENT: Pharynx normal. Neck: Normal inspection. Neck supple. No lymph nodes noted. No crepitus CVS: Normal heart rate and rhythm. Pulses normal. Normal S1 and S2 Respiratory: No respiratory distress. Breath sounds normal. No Wheezing. No rales Abdomen: Soft and nontender. No rigidity. No distention. Skin: Skin warm and dry. Normal skin color. Normal skin turgor. Extremities: No lower extremity edema. No Lacerations. No Rash Neuro: Oriented X 3. No motor deficit. No sensory deficit. Moving all extremities. No slurred speech. CN 2 through 12 grossly intact Psych: calm, anxious, refuses to take medications, patient stating that he does not belong to this world, stating that he needs to stopped taking his medications started drinking more alcohol because that is part of his oriental orthodox, patient has pressure speech, tangential thinking, very disorganized thoughts Course Course Course Narrative: Patient is acutely psychotic. Patient is on a Section 12. Patient refusing to take any p.o. meds at this time, patient requesting wine All of patient's labs pending Care team consult pending Physician observation started at 01:15 Reevaluation(s) Reevaluation #1: Time: 08:29 Date: 04/16/25 Provider: Brittney Salgado, DO Patient in physician observation for psychiatric evaluation.? No acute events reported overnight. No current complaints. VS stable.? Patient is pending CARE team. Patient calm after IM medications that he requested. Will continue to monitor. Reevaluation #2: Time: 10:56 Date: 04/16/25 Provider: Brittney Salgado DO Physician observation ended at 1056am Patient has been cleared for discharge by the CARE team. Will follow up as an outpatient. Medications Administered Discontinued Medications Generic Name Dose Route Start Last Admin Trade Name [place]arion PRN Reason Stop Dose Admin Acetaminophen 975 mg 04/16/25 04:33 04/16/25 04:36 Acetaminophen 325 Mg Tablet PO 04/16/25 04:34 975 mg ONCE ONE Administration Diphenhydramine HCl 50 mg 04/16/25 01:16 04/16/25 01:28 Diphenhydramine Hcl 50 Mg/Ml Vial IM 04/16/25 01:17 50 mg ONCE ONE Administration Lorazepam 2 mg 04/16/25 01:16 04/16/25 01:28 Lorazepam 2 Mg/Ml Vial IM 04/16/25 01:17 2 mg STAT STA Administration Ziprasidone 20 mg 04/16/25 01:17 04/16/25 01:28 Ziprasidone Mesylate 20 Mg Vial IM 04/16/25 01:18 20 mg ONCE ONE Administration Medical Decision Making Medical Decision Making MDM Narrative: Eventually patient accepted to take IM medications. Patient given Geodon Benadryl and Ativan. Patient states that he is allergic to Haldol. Differential Diagnosis Differential Diagnoses: The differential diagnosis associated with the presentation includes (Patient is very decompensated, he will very likely need inpatient level of care.) Admission/Observation Consideration of admission/observation: Escalation of care including admission/observation considered cleared by CARE team he is at his baseline now did well with IM medications Lab Data 04/16/25 08:52 04/16/25 08:52 Labs: Lab Results 04/16/25 Range/Units 08:52 WBC 13.8 H (4.8-10.8) X10*3/uL RBC 4.80 (4.60-5.80) X10*6/uL Hgb 15.3 (14.0-18.0) g/dl Hct 42.5 (42.0-52.0) % MCV 88.5 (80.0-98.0) fL MCH 31.9 (27.0-33.0) pg MCHC 36.0 (31.0-36.0) g/dl RDW 13.2 (11.0-16.0) % Plt Count 196 (160-400) X10*3/uL MPV 10.1 (9.4-12.4) fL Immature Gran % (Auto) 1.0 H (0.0-0.4) % Neut % (Auto) 61.3 (45-73) % Lymph % (Auto) 24.8 (20-40) % Nye % (Auto) 9.7 (2-11) % Eos % (Auto) 2.8 (0-4) % Baso % (Auto) 0.4 (0-2) % Lymph # (Auto) 3.4 (1.2-4.9) X10*3/uL Nye # (Auto) 1.3 H (0.1-1.2) X10*3/uL Eos # (Auto) 0.4 (0.0-0.4) X10*3/uL Baso # (Auto) 0.1 (0.0-0.2) X10*3/uL Abs Immat Gran (auto) 0.14 H (0.00-0.03) X10*3/uL Absolute Neuts (auto) 8.4 H (2.0-8.3) x10*3/uL Absolute Nucleated RBC 0.020 H (0.0-0.012) X10*3/uL Nucleated RBC % (auto) 0.1 (0.0-0.2) /100WBC Sodium 140 (135-145) mmol/L Potassium 3.8 (3.3-5.1) mmol/L Chloride 103 (96-108) mmol/L Carbon Dioxide 29 (22-29) mmol/L Anion Gap 12 (12-20) BUN 11 (9-16) mg/dL Creatinine 0.82 (0.5-1.4) mg/dL Estim Creat Clear Calc 133.9 Estimated GFR > 60 Random Glucose 98 (60-115) mg/dL Calcium 9.7 (8.4-10.2) mg/dL Total Bilirubin 0.6 (0.0-1.0) mg/dL AST 33 (5-37) U/L ALT 53 H (0-40) U/L Alkaline Phosphatase 60 (39-117) U/L Total Protein 7.0 (6.5-8.0) g/dL Albumin 4.5 (3.5-5.0) g/dL [place] 0.15 L (0.60-1.20) mmol/L Ethyl Alcohol 12 mg/dL Critical Care Time Critical Care Time Critical Care Time: Yes Total Critical Care Time: 45 Attestation: I have personally provided critical care time. Time includes review of lab data, radiology results, discussion with consultants, and monitoring for potential decompensation. Intervention performed as documented. Discharge Plan Discharge Clinical Impression: Acute psychosis Schizoaffective disorder Qualifiers: Schizoaffective disorder type: unspecified Qualified Code(s): F25.9 - Schizoaffective disorder, unspecified Patient Disposition: Home, Self-Care Instructions: Schizoaffective Disorder (ED) Additional Instructions: You were seen in our Emergency Department today for treatment of a behavioral health issue. It is important after your visit that you follow up with either your behavioral health provider or a primary care doctor within 7 days.? If you have trouble finding a therapist you can reach out to [address] [phone] The National Suicide and Crisis Lifeline can be reached 7 days a week 24 hours a day.? Call 988 to speak with someone.? Return for any worsening symptoms or concerns such as thoughts of self harm or harm to others. Please call 911 if you feel your mental health is worsening.? Prescriptions: No Action divalproex 500 mg tablet,delayed release (DR/EC) 1,500 mg PO BEDTIME lithium carbonate 450 mg tablet extended release 900 mg PO BEDTIME atorvastatin 10 mg tablet 10 mg PO BEDTIME levothyroxine 75 mcg tablet 75 mcg PO DAILY@0600 pantoprazole 40 mg tablet,delayed release (DR/EC) 40 mg PO DAILY@0630 olanzapine 15 mg tablet 30 mg PO BEDTIME risperidone [Risperdal] 2 mg Tablet 2 mg PO DAILY Interventions: [place]-Suicide Risk Severity Scale Last Done: 04/16/25 01:02 Print Language: Ivorian
--- NOTE | 2025-04-16 01:17 | PC.NURSE ---
pt refusing labs at this time.
[2025-04-16] MEDS: LORazepam 2 MG/ML VIAL IM (01:28)
--- NOTE | 2025-04-16 01:34 | PC.NURSE ---
pt medicated per mar,
--- NOTE | 2025-04-16 07:23 | PC.NURSE ---
Assumed care of patient at 0645, patient appears to be sleeping, respirations even and unlabored. Per previous Rn, patient was refusing labs. Continue plan of care for CARE team dania
[2025-04-16 08:57] LABS: MANUAL DIFF FLAG NO
[2025-04-16 09:03] LABS: Hematocrit 42.5 % (42.0-52.0); Hemoglobin 15.3 g/dl (14.0-18.0); Imm Gran Abs Auto 0.14 X10*3/uL (0.00-0.03); Imm Gran Pct Auto 1.0 % (0.0-0.4); Lymphocytes Absolute Auto 3.4 X10*3/uL (1.2-4.9); Mean Corpuscular HGB Conc 36.0 g/dl (31.0-36.0); Mean Corpuscular Hemoglobin 31.9 pg (27.0-33.0); Mean Corpuscular Volume 88.5 fL (80.0-98.0); NRBC Abs Auto 0.020 X10*3/uL (0.0-0.012); NRBC Pct Auto 0.1 /100WBC (0.0-0.2); Platelet Count 196 X10*3/uL (160-400); Red Blood Count 4.80 X10*6/uL (4.60-5.80); White Blood Count 13.8 X10*3/uL (4.8-10.8)
[2025-04-16 09:06] LABS: Lithium 0.15 mmol/L (0.60-1.20)
[2025-04-16 09:13] LABS: Alanine Aminotransferase 53 U/L (0-40); Albumin Level 4.5 g/dL (3.5-5.0); Alkaline Phosphatase 60 U/L (39-117); Anion Gap 12 (12-20); Aspartate Amino Transferase 33 U/L (5-37); Blood Urea Nitrogen 11 mg/dL (9-16); Calcium 9.7 mg/dL (8.4-10.2); Carbon Dioxide 29 mmol/L (22-29); Chloride 103 mmol/L (96-108); Creatinine Clr Calc Pharmacy 133.9; Estimated Glomerular Filt Rate > 60; Potassium 3.8 mmol/L (3.3-5.1); Sodium 140 mmol/L (135-145); Total Protein 7.0 g/dL (6.5-8.0)
== END 2025-04-16 11:17 | disposition home or self-care (01) ==
PROVIDERS: Emergency Provider Emergency Medicine
DX: F23 Brief psychotic disorder (principal); F25.9 Schizoaffective disorder, unspecified; F41.9 Anxiety disorder, unspecified; F19.10 Other psychoactive substance abuse, uncomplicated; R45.6 Violent behavior; Z79.899 Other long term (current) drug therapy
CPT/HCPCS: 36415; 80053; 80178; 80307; 85025; 96372; 99285; 99291; J1200; J2060; J3486; S9485

== ENCOUNTER 2025-04-17 03:20 | Emergency (ER) | payer MEDICARE, MEDICAID, SELFPAY ==
[2025-04-17 03:28] VITALS: BP 140/80; PULSE 130; O2SAT 99
--- NOTE | 2025-04-17 03:30 | PC.NURSE ---
pt BIBA from [facility] w/ multiple complaints. Upon assessment pt noted to not answer questions appropriately, w/ delusional and paranoid and disorganized thoughts process. 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 Blum, he was changed over by security and technology engineer, belongings secured, safety checks in place Q15 min, pt resting quietly at this time, plan for care team consult
--- NOTE | 2025-04-17 03:38 | ED_ITS ---
HPI - Psych General Chief Complaint: Psychiatric Symptoms Stated Complaint: psych; claiming meds and Fantasies schizophrenia? Time Seen by Provider: 04/17/25 03:27 Source: patient and EMS Mode of arrival: EMS Limitations: no limitations History of Present Illness ED Provider: Dr. Genesis Blum HPI Narrative: patient comes to the emergency room via ambulance from his nursing home. Frank soriano is psychotic again. Patient was seen here yesterday and discharged in the morning. Today's complaint is that patient is requesting a Grade injection. also, patient complaining that the [employer] is roaming around [place] and is out to get him. Patient again, stating that he is Thai and is requesting that we provide him with documents so he can move to [place]. Patient denies suicidal or homicidal ideation. Related Data Home Medications ?Medication ?Instructions ?Recorded ?Confirmed atorvastatin 10 mg tablet 10 mg PO BEDTIME 12/17/24 levothyroxine 75 mcg tablet 75 mcg PO DAILY@0600 disor arie of 12/25/24 04/17/25 thyroid gland pantoprazole 40 mg tablet,delayed 40 mg PO DAILY@0630 12/25/24 04/17/25 release olanzapine 15 mg tablet 30 mg PO BEDTIME 01/12/25 risperidone 2 mg tablet (Risperdal) 2 mg PO DAILY 05/3104/17/25 divalproex 500 mg tablet,delayed 1,500 mg PO BEDTIME 0 01/14/25 04/17/25 release lithium carbonate 450 mg 900 mg PO BEDTIME 01/14/25 0 04/17/25 tablet,extended release Allergies Allergy/AdvReac Type Severity Reaction Status Date / Time quetiapine (From SEROQUEL) Allergy Severe ANAPHYLAXIS Verified 04/17/25 03:54 haloperidol (HALOPERIDOL) Allergy Intermediate SWELLING Verified 04/17/25 03:54 trazodone Allergy Unknown Verified 04/17/25 03:54 Review of Systems Review of Systems: Constitutional : No Weight loss, No Fever, No Chills, No Night Sweats, No Fatigue, No Malaise ENT/Mouth : No Hearing loss, No Ear Pain, No Nasal Congestion, No Sinus Pain, No Hoarseness, No sore throat, No Rhinorrhea, No Swallowing Difficulty Eyes: No Eye Pain, No Swelling, No Redness, No Foreign Body, No Discharge, No Vision Changes Cardiovascular : No Chest Pain, No SOB, No Dyspnea on Exertion, No Orthopnea, No Edema, No Palpitations Respiratory : No Cough, No Sputum, No Wheezing, No Smoke Exposure, No Dyspnea Gastrointestinal : No Nausea, No Vomiting, No Diarrhea, No Constipation, No abdominal Pain, No Hematochezia, No Melena Genitourinary : no irregular bleeding, No Dysuria, No Urinary Frequency, No Hematuria, No Urinary Incontinence, No Urgency, No Flank Pain, No Urinary Flow Changes, No Hesitancy Musculoskeletal : No joint pain, No Myalgias, No Joint Swelling Skin : No Skin Lesions, No rash Neuro : No Weakness, No Numbness, No Paresthesias, No Loss of Consciousness, No Dizziness, No Headache Psych : patient is psychotic, complaining of [employer] out to get him Heme/Lymph: No Bruising, No Bleeding,No Lymphadenopathy Endocrine : No Polyuria, No Polydipsia, No Temperature Intolerance PMFSH Past Medical History Medical History Hallucination, visual Substance abuse Violent behavior Schizoaffective disorder Social History Social History Household Members: Other Household Members Other:: peers Housing: Other Housing Other:: nursing home Do you presently have visiting nurse or other home services: Yes (medications administered by nursing home) Unable to assess alcohol history related to: Unknown Alcohol intake: never Patient Tobacco Use Status: Refuse Tobacco use screen Tobacco use type: Cigarette Cigarettes Per Day: 3 Years Smoked: unsure e-Cigarette/Vaping Use: Never Used Second Hand Smoke Exposure: No Use of substances other than those prescribed or required for medical reasons: Yes Substance Use Type: Crack/Cocaine Advance Directives: No Advance Directives Information Provided: Yes service: No Sexual orientation: Straight/Heterosexual Physical Exam Vital Signs: Vital Signs: Last Vital Signs Temp 98.9 F 04/17/25 03:48 Pulse 120 H 04/17/25 03:48 Resp 16 04/17/25 07:28 BP 136/73 04/17/25 03:48 Pulse Ox 99 04/17/25 03:48 O2 Del Method Room Air 04/17/25 03:48 BMI result Body Mass Index 25.8 Const: Other: Appearance: Alert. Oriented X3. No acute distress. Eyes: Pupils equal, round and reactive to light. ENT: Pharynx normal. Neck: Normal inspection. Neck supple. No lymph nodes noted. No crepitus CVS: Normal heart rate and rhythm. Pulses normal. Normal S1 and S2 Respiratory: No respiratory distress. Breath sounds normal. No Wheezing. No rales Abdomen: Soft and nontender. No rigidity. No distention. Skin: Skin warm and dry. Normal skin color. Normal skin turgor. Extremities: No lower extremity edema. No Lacerations. No Rash Neuro: Oriented X 3. No motor deficit. No sensory deficit. Moving all extremities. No slurred speech. CN 2 through 12 grossly intact Psych: calm, cooperative, anxious, afraid that the [employer] is out to get him Course Course Course Narrative: all of patient's labs pending care team consult pending patient on a Section 12 physician observation started at 03:40 Reevaluation(s) Reevaluation #1: Time: 13:30 Date: 04/17/25 Provider: Conrad Smalls DO Physician observation ended. Patient has been cleared for discharge by the CARE team. Will follow up as an outpatient. Time: 13:30 Medical Decision Making Medical Decision Making MDM Narrative: - patient refusing labs Differential Diagnosis Differential Diagnoses: The differential diagnosis associated with the presentation includes ( anxiety, schizoaffective disorder, polysubstance abuse, alcohol intoxication) Admission/Observation Consideration of admission/observation: Escalation of care including admission/observation considered ( patient is on a Section 12. This is the 2nd day that patient comes in a row psychotic) Lab Data Labs: Lab Results 04/17/25 Range/Units 03:50 Urine Opiates Screen Not Detected (Not Detect) Ur Buprenorphine Scrn Not Detected (Not Detect) ng/mL Ur Oxycodone Screen Not Detected (Not Detect) ng/mL Urine Methadone Screen Not Detected (Not Detect) ng/mL Urine Fentanyl Screen Not Detected (Not Detect) Ur Barbiturates Screen Not Detected (Not Detect) Ur Phencyclidine Scrn Not Detected (Not Detect) Ur Amphetamines Screen Not Detected (Not Detect) U Benzodiazepines Scrn Not Detected (Not Detect) Urine Cocaine Screen POSITIVE H (Not Detect) U Marijuana (THC) Screen POSITIVE H (Not Detect) Critical Care Time Critical Care Time Critical Care Time: Yes Total Critical Care Time: 35 Attestation: I have personally provided critical care time. Time includes review of lab data, radiology results, discussion with consultants, and monitoring for potential decompensation. Intervention performed as documented. Discharge Plan Discharge Clinical Impression: Psychosis Patient Disposition: Home, Self-Care Additional Instructions: You were seen in our Emergency Department today for treatment of a behavioral health issue. It is important after your visit that you follow up with either your behavioral health provider or a primary care doctor within 7 days.? If you have trouble finding a therapist you can reach out to [address] [phone] [facility] [employer] [facility] can be reached 7 days a week 24 hours a day.? Call [phone] to speak with someone.? Return for any worsening symptoms or concerns such as thoughts of self harm or harm to others. Please call 911 if you feel your mental health is worsening.? Prescriptions: No Action divalproex 500 mg tablet,delayed release (DR/EC) 1,500 mg PO BEDTIME lithium carbonate 450 mg tablet extended release 900 mg PO BEDTIME atorvastatin 10 mg tablet 10 mg PO BEDTIME levothyroxine 75 mcg tablet 75 mcg PO DAILY@0600 pantoprazole 40 mg tablet,delayed release (DR/EC) 40 mg PO DAILY@0630 olanzapine 15 mg tablet 30 mg PO BEDTIME risperidone [Risperdal] 2 mg Tablet 2 mg PO DAILY Interventions: [place]-Suicide Risk Severity Scale Last Done: 04/17/25 03:54 Print Language: Syrian
[2025-04-17 03:48] VITALS: BP 136/73; PULSE 120; RESP 18; TEMP 37.2; O2SAT 99; BMI 25.8
[2025-04-17 04:12] LABS: Cannabinoid Screen Urine POSITIVE (Not Detect)
[2025-04-17 07:28] VITALS: RESP 16
--- NOTE | 2025-04-17 07:28 | PC.NURSE ---
Assumed care of patient at 0645, patient appears to be in no apparent distress this am, listening to music with pod headphones, eating breakfast. Continue plan of care for CARE team dania
--- NOTE | 2025-04-17 08:30 | PC.NURSE ---
RE: med rec This RN completed med rec based on medical record history. Pt is unreliable historian, will not answer questions regarding his medications, simply stating I do not take medications, they are against my yazidi
--- NOTE | 2025-04-17 12:22 | MHC.CARE ---
Pt does not meet the criteria for a higher level of care and will be discharged to F/U with current providers.
[2025-04-17 13:45] VITALS: BP 00/00; PULSE 0; RESP 16; TEMP -17.7; TEMP 0
== END 2025-04-17 13:47 | disposition home or self-care (01) ==
PROVIDERS: Emergency Provider Emergency Medicine
DX: F28 Other psychotic disorder not due to a substance or known physiological condition (principal); F25.9 Schizoaffective disorder, unspecified; F14.10 Cocaine abuse, uncomplicated; F19.10 Other psychoactive substance abuse, uncomplicated; F60.2 Antisocial personality disorder; R45.6 Violent behavior; F12.20 Cannabis dependence, uncomplicated; Z79.899 Other long term (current) drug therapy
CPT/HCPCS: 80307; 99285; S9485

== ENCOUNTER 2025-06-05 15:12 | Emergency (ER) | payer MEDICARE, MEDICAID, SELFPAY ==
[2025-06-05 15:13] VITALS: BP 120/67; PULSE 87; RESP 16; TEMP 36.1; O2SAT 95; BMI 30.4
--- NOTE | 2025-06-05 15:16 | ED.GENADULT ---
HPI - General Adult General Chief complaint: Psychiatric Symptoms Stated complaint: SI Time Seen by Provider: 06/05/25 15:26 Source: patient and old records reviewed Mode of arrival: ambulatory Limitations: no limitations History of Present Illness ED Provider: DR. Arnett HPI narrative: This is a 34-year-old male history of schizoaffective disorder, antisocial personality, alcohol use, polysubstance abuse, lives at a nursing home presented today for evaluation of auditory hallucination, patient otherwise declined SI or HI, compliant with his medications. Patient in the emergency department is declining blood workup for medical clearance. Related Data Home Medications ?Medication ?Instructions ?Recorded ?Confirmed atorvastatin 10 mg tablet 10 mg PO BEDTIME 12/17/24 04/17/25 levothyroxine 75 mcg tablet 75 mcg PO DAILY@0600 disorder of 12/25/24 04/17/25 thyroid gland pantoprazole 40 mg tablet,delayed 40 mg PO DAILY@0630 12/25/24 04/17/25 release olanzapine 15 mg tablet 30 mg PO BEDTIME 01/12/25 04/17/25 risperidone 2 mg tablet (Risperdal) 2 mg PO DAILY 01/12/25 04/17/25 divalproex 500 mg tablet,delayed 1,500 mg PO BEDTIME 01/14/25 04/17/25 release lithium carbonate 450 mg 900 mg PO BEDTIME 01/14/25 04/17/25 tablet,extended release Allergies Allergy/AdvReac Type Severity Reaction Status Date / Time quetiapine (From SEROQUEL) Allergy Severe ANAPHYLAXIS Verified 06/05/25 15:17 haloperidol (HALOPERIDOL) Allergy Intermediate SWELLING Verified 06/05/25 15:17 trazodone Allergy Unknown Verified 06/05/25 15:17 Review of Systems Review of Systems: All other systems are reviewed and are negative Constitutional: Reports as per HPI and Reports no additional constitutional complaints Eyes: Reports as per HPI and Reports no additional eye complaints Reports system reviewed and no additional complaints, except as documented Cardiovascular: Reports as per HPI and Reports no additional cardiovascular complaints Respiratory: Reports as per HPI and Reports no additional respiratory complaints Gastrointestinal: Reports as per HPI and Reports no additional gastrointestinal complaints Genitourinary: Reports no additional female genitourinary complaints Musculoskeletal: Reports no additional musculoskeletal complaints Skin/Breast: Reports system reviewed and no additional complaints, except as docu Psychiatric: Reports no additional psychiatric complaints Endocrine: Reports no additional endocrine complaints Hematologic/Lymphatic: Reports no additional hematologic/lymphatic complaints Allergic/Immunologic: Reports no additional allergic/immunologic complaints Reports system reviewed and no additional complaints, except as documented and Reports Abnormal speech present [facility] Past Medical History Medical History Hallucination, visual Substance abuse Violent behavior Schizoaffective disorder Social History Social History Household Members: Other Household Members Other:: peers Housing: Other Housing Other:: nursing home Do you presently have visiting nurse or other home services: Yes (medications administered by nursing home) Unable to assess alcohol history related to: Refusing to respond Alcohol intake: never Patient Tobacco Use Status: Refuse Tobacco use screen Tobacco use type: Cigarette Cigarettes Per Day: 3 Years Smoked: unsure Smoked in Last 30 Days: Yes e-Cigarette/Vaping Use: Never Used Second Hand Smoke Exposure: No Use of substances other than those prescribed or required for medical reasons: Refusing to respond Substance Use Type: Crack/Cocaine Advance Directives: No Advance Directives Information Provided: No service: No Sexual orientation: Straight/Heterosexual Physical Exam ED Vital Signs: Vital Signs - 24 hr 06/05/25 15:13 Temperature 97.0 F Pulse Rate 87 Respiratory Rate 16 Blood Pressure 120/67 Pulse Oximetry 95 Oxygen Delivery Method Room Air BMI result Body Mass Index 30.4 Vital signs have been reviewed and appear to be correct. Blood pressure elevated. Heart rate normal. Respiratory rate normal. Temperature normal. Oxygen saturation normal. Appearance: Alert. Oriented X3. No acute distress. Head: Normal external exam. Normocephalic. Atraumatic. No Abel signs noted. No raccoon eyes noted Eyes: PERRLA. EOMI. Conjunctiva and sclera normal. Eyelids normal. ENT: TM's Normal. Pharynx normal. Uvula midline. Moist mucous membranes. No trismus noted. No drooling noted. No muffled voice noted. Neck: Normal inspection. Neck supple. FROM. No adenopathy. Thyroid Normal. No meningeal signs. No neck mass noted. CVS: Normal heart rate and rhythm. Heart sound normal. No murmurs noted. Pulses normal throughout. Respiratory: No respiratory distress. Painless inspiration. Breath sounds normal. No wheezes/rales/rhonchi noted. Chest nontender. No accessory muscle usage noted or decreased air movement noted. Abdomen: Soft and nontender. Bowel sounds normal in all 4 quadrants. No distention noted. No organomegaly noted. No visible injury noted. Back: No CVA tenderness. Full range of motion noted. Skin: Skin warm and dry. Normal skin color. Normal skin turgor. No rashes/lesions/lacerations noted. Extremities: No lower extremity edema. Extremities exhibit normal range of motion. Extremities nontender. Neuro: Oriented X 3. Cranial nerve exam: II-XII are grossly intact No motor deficit. No sensory deficit. Reflexes normal. Patient Orientation: Person, Place, Time and Situation, okay hygiene and grooming. Fair eye contact, attentive, no tics or tremors. Level of Consciousness: Awake, Appropriate and Alert Patient Behavior: Appropriate, Guarded, Cooperative and Anxious Mood Description: Constricted, Blunted and Apprehensive Affect Description: Constricted, Blunted and Apprehensive Patient Cognition Impaired: No Ability to Follow Directions: Excellent Speech Pattern: Clear, Appropriate and Spontaneous Speech, nonpressured, spontaneous with regular rate and rhythm, normal volume and prosody. No dysarthria. Memory Description: Intact, Immediate Intact and Short Term Intact Hallucinations: None Delusions: Not Present Thought Process: Intact Thought Content: positive for Intact, positive for Logical, denies Suicidal Ideation and denies Homicidal Ideation. Depressive Symptoms: Not present. Judgement and Insight: Limited but adequate. Course Course Course Narrative: RME, this is a rapid medical exam performed by Aiden Umana please refer to primary provider for complete H&P- 34-year-old male with past medical history significant for schizoaffective disorder, polysubstance abuse, antisocial personality disorder presents for evaluation of I need help. ? Patient reports he is having problems with his medications and he endorses auditory and visual hallucinations. Plan for medical clearance and care team consult Reevaluation(s) Reevaluation #1: Patient refuse labs for medical clearance, otherwise no medical complaints, will start physician observation and care team evaluation. Time: 16:03 Reevaluation #2: Patient has been missing for the last 2 days from the nursing home, did not take is medication for the last 2 days, willing to take him back if we medicate him with his lithium before he leaves. Will give the patient 1 dose of lithium before he go but patient is refusing to check levels. Discontinue physician observation now. Time: 17:38 Medical Decision Making Differential Diagnosis Differential Diagnoses: The differential diagnosis associated with the presentation includes (Acute psychosis, SI, HI, medical clearance.) Admission/Observation Consideration of admission/observation: Escalation of care including admission/observation considered Discharge Plan Discharge Clinical Impression: Schizoaffective disorder Qualifiers: Schizoaffective disorder type: unspecified Qualified Code(s): F25.9 - Schizoaffective disorder, unspecified Patient Disposition: Xfer [facility] Instructions: Schizoaffective Disorder (ED) Prescriptions: No Action divalproex 500 mg tablet,delayed release (DR/EC) 1,500 mg PO BEDTIME lithium carbonate 450 mg tablet extended release 900 mg PO BEDTIME atorvastatin 10 mg tablet 10 mg PO BEDTIME levothyroxine 75 mcg tablet 75 mcg PO DAILY@0600 pantoprazole 40 mg tablet,delayed release (DR/EC) 40 mg PO DAILY@0630 olanzapine 15 mg tablet 30 mg PO BEDTIME risperidone [Risperdal] 2 mg Tablet 2 mg PO DAILY Interventions: [place]-Suicide Risk Severity Scale Last Done: 06/05/25 15:31 Print Language: [place] Leonean
--- OUTSIDE RECORDS SUMMARY | 2025-06-05 15:26 | XMS_ITS | Clinical Summary ---
Author Organization [facility] Address [address] [place] [address] Phone Care Team Providers Care Laser Printing Operator Name Role Phone Sreekanth Hurtado MD Primary Care Provider [phone] Allergies Active Allergy Reactions Criticality Noted Date Comments Clozapine Neutropenia Medium 09/30/2024 Droperidol 11/17/2024 ?acute dystonic reaction Haloperidol Unknown 09/30/2024 many years ago...they had to give me Benadryl and I had to sit upright by a window Quetiapine Unknown 09/30/2024 Trazodone Unknown 09/30/2024 Mentioned in pt's med list from long-term Medications atorvastatin (LIPITOR) 10 mg tablet Take [...] Active risperiDONE (RisperDAL) 2 mg tablet Take 2 tablets (4 mg total) by mouth 1 (one) time each day. Active OLANZapine (ZyPREXA ZYDIS) 20 mg disintegrating tablet Dissolve 15 mg on top of the tongue 2 (two) times a day. Active benztropine (COGENTIN) 1 mg tablet Take 1 tablet (1 mg total) by mouth at bedtime. Active albuterol HFA (PROAIR HFA ; PROVENTIL [...] over a pack per day). 5 Active Encounters Date Type Department Care Team Description 05/26/2025 7:48 PM EDT - 05/26/2025 11:05 PM EDT [facility] Emergency [address] [place] [phone] Benjie Coleman MD Anxiety (Primary Dx) Discharge Disposition: Home or Self Care 04/24/2025 6:00 PM EDT - 04/24/2025 8:42 PM EDT Emergency [facility] Emergency [address] [place] [phone] Nikolay Mueller MD Notash, MD Kerwin Schizoaffective disorder, unspecified type ([facility] V24, [facility] V28) (Primary Dx); Anxiety Discharge Disposition: Home or Self Care 04/21/2025 10:14 PM EDT - 04/22/2025 9:15 AM EDT [facility] Emergency [address] [place] [phone] Joseph Ramos MD Ziebro, John, MD Delusional disorder ([facility] V24, [facility] V28) (Primary Dx) Discharge Disposition: Home or Self Care from Last 3 Months Medical History Medical History Date Comments Disease of thyroid gland Bipolar 1 disorder ([facility] V24, [facility] V28) Schizo affective schizophrenia ([facility] V24, [facility] V28) Bipolar 1 disorder ([facility] V24, [facility] V28) Anxiety Anxiety Social History Tobacco Use Types Packs/Day Years Used Date Smoking Tobacco: Some Days Cigarettes Tobacco Cessation:Ready to Q uit: Not Asked; Counseling Given: Not Answered Alcohol Use Standard Drinks/Week Comments Not Currently 2 (1 standard drink = 0.6 oz pur e alcohol) Sex and Gender Information Value Date Recorded Sex Assigned at Male 09/30/2024 4:45 AM EST Legal Sex Male 3:36 AM EST Gender Identity Male 09/30/2024 4:45 AM EST Sexual Orientation Straight 10/29/2024 10 :30 PM EST Obstetrics History Last Filed Vital Signs Vital Sign Reading Time Taken Comments Blood Pressure 132/80 05/26/2025 8:23 PM EDT Pulse 76 05/26/2025 8:23 PM EDT Temperature 36.7 C (98 F) 05/26/2025 8:23 PM EDT Respiratory Rate 16 05/26/2025 8:23 PM EDT Oxygen Saturation 97% 05/26/2025 8:23 PM EDT Inhaled Oxygen Concentration - - Weight 81.6 kg (180 lb) 05/26/2025 7:51 PM EDT Height 170.2 cm (5' 7 ) 05/26/2025 7:51 PM EDT Body Mass Index 28.19 05/26/2025 7:51 PM EDT Plan of Treatment Health Maintenance Due Date Last Done Comments DTaP,Tdap,and Td Vaccines (1 - Tdap) 2008 Hepatitis B Vaccines (1 of 3 - 19+ 3-dose series) 2008 Pneumococcal Vaccine: Pediat rics (0 to 5 Years) and At-Risk Patients (6 to 49 Years) (1 of 2 - PCV) 2008 Cholesterol Screening (Lipid Panel) 09/09/2022 HIV Screening 09/09/2022 Hepatitis C Screening 09/09/2022 Medicare Annual Wellness Visit 09/09/2022 Social Influencers of Health Screening 09/09/2022 COVID-19 Vaccine (1 - 2023-2 5 season) 2024 Depression Screening 10/07/2024 Influenza Vaccine (#1) 2025 HIB Vaccines Aged Out No longer [...] Associated Diagnosis Comments METHADONE SCREEN, URINE STAT 05/26/2025 8:18 PM EDT PHENCYCLIDINE, URINE STAT 05/26/2025 8:18 PM EDT BUPRENORPHINE SCREEN, URINE STAT 05/26/2025 8:18 PM EDT DRUG ABUSE SCREEN 8A PANEL, URINE STAT 05/26/2025 8:18 PM EDT CBC WITH AUTO DIFFERENTIAL STAT 04/24/2025 6:36 PM EDT DRUG ABUSE SCREEN, SERUM STAT 04/24/2025 6:36 PM EDT SALICYLATE LEVEL STAT 04/24/2025 6:36 PM EDT ETHANOL STAT 04/24/2025 6:36 PM EDT ACETAMINOPHEN LEVEL STAT 04/24/2025 6 :36 PM EDT THYROID STIMULATING HORMONE STAT 04/24/2025 6:36 PM EDT COMPREHENSIVE METABOLIC PANEL STAT 04/24/2025 6:36 PM EDT CBC AND DIFFERENTIAL STAT 04/24/2025 6:36 PM EDT from Last 3 Months Results * (ABNORMAL) Drug abuse screen 8a panel, urine (05/26/2025 8:18 PM EDT) Amphetamine Screen, Ur Negative Negative [facility]:Certain OTC medicati ons containing ephedrine, phenylephrine, pseudoephedrine and phenylpropanolamine can cause false positive results. Barbiturate Screen, Ur Negative Negative [facility] Benzodiazepine Screen, Ur Negative Negative LAB CHEMISTRY METHOD 9:21 PM [facility] Cocaine Screen, Ur Negative Negative LAB CHEMISTRY METHOD 9:21 PM [facility] Opiate Screen, Ur Negative Negative LAB CHEMISTRY METHOD 9:21 PM [facility] Cannabinoid (THC) Screen, Ur Positive(A ) Negative LAB CHEMISTRY METHOD 9:21 PM [facility] Comment:Specimens from patie nts taking pantoprazole sodium (Protonix) have been shown to produce false positive results. Oxycodone Screen, Ur Negative Negative LAB CHEMISTRY METHOD 9:21 PM [facility] Fentanyl, Ur Negative Negative LAB CHEMISTRY METHOD 9:21 PM [facility] Urine Urine specimen obtained by clean catch procedure / Unknown Non-blood Collection / Unknown 05/26/2025 8:18 PM EDT 05/26/2025 8:42 PM EDT [facility] - 05/26/2025 9:21 PM EDT Assay cutoffs: Amphetamines 1000 ng/mL Barbiturates 200 ng/mL Benzodiazepines 200 ng/mL Cocaine 300 ng/mL Fentanyl 1 ng/mL Opiates 300 ng/mL Oxycodone 100 ng/mL THC 50 ng/mL Semi-quantitative assay for screening purposes only. Unconfirmed screening result should not be used for non-medical purposes. *ALTERNATE METHOD CONFIRMATION DONE UPON REQUEST ONLY* Michael Jefferson MD LAB URINE ORDERABLES Lorraine l Result Performing Organization Address [facility] Co de Phone Number [facility] [address] [place] [address], * Buprenorphine screen, urine (05/26/2025 8:18 PM EDT) Buprenorphine Screen Urine Negative Negative LAB CHEMISTRY METHOD 05/26/2025 9:21 PM EDT [facility] Urine Urine specimen obtained by clean catch procedure / Unknown Non-blood Collection / Unknown 05/26/2025 8:18 PM EDT 05/26/2025 8:42 PM EDT Narrative [facility] - 05/26/2025 9:21 PM EDT Assay cutoff 5 ng/mL Semi-quantitative assay for screening purposes only. Unconfirmed screening result should not be used for non-medical purposes. *ALTERNATE METHOD CONFIRMATION DONE UPON REQUEST ONLY* Michael Jefferson MD LAB URINE ORDERABLES Lorraine l Result Performing Organization Address [facility] de Phone Number [facility] [address] [place] [address], * Methadone, urine (05/26/2025 8:18 PM EDT) Methadone Screen, Urine Negative Negative LAB CHEMISTRY METHOD 05/26/2025 9:21 PM EDT [facility] Comment: Assay cutoff 300 ng/mL Semi-quantitative assay for screening purposes only. Unconfirmed screening result should not be used for non-medical purposes. *ALTERNATE METHOD CONFIRMATION DONE UPON REQUEST ONLY* Urine Urine specimen obtained by clean catch procedure / Unknown Non-blood Collection / Unknown 05/26/2025 8:18 PM EDT 05/26/2025 8:42 PM EDT Michael Jefferson MD LAB URINE ORDERABLES Lorraine l Result Performing Organization Address City/[facility]/ZIP Co de Phone Number [facility] [address] [place] [address], [place] [phone] * Phencyclidine, urine (05/26/2025 8:18 PM EDT) Pathologist [facility] PCP Scrn, Ur Negative Negative LAB CHEMISTRY METHOD 05/26/2025 9:21 PM EDT [facility] Comment: Assay cutoff 25 ng/mL Semi-quantitative assay for screening purposes only. Unconfirmed screening result should not be used for non-medical purposes. *ALTERNATE METHOD CONFIRMATION DONE UPON REQUEST ONLY* Urine Urine specimen obtained by clean catch procedure / Unknown Non-blood Collection / Unknown 05/26/2025 8:18 PM EDT 05/26/2025 8:42 PM EDT Michael Jefferson MD LAB URINE ORDERABLES Lorraine l Result Performing Organization Address [facility]/ZIP Co de Phone Number [facility] [address] [place] [address], [place] [phone] * (ABNORMAL) CBC auto differential (04/24/2025 6:36 PM EDT) Pathologist [facility] WBC 9.5 4.8 - 10.8 K/mcL LAB HEMETOLOGY METHOD 04/24/2025 6:49 PM EDT [facility] RBC 4.60 4.50 - 5.50 M/mcL LAB HEMETOLOGY METHOD 04/24/2025 6:49 PM EDT [facility] Hemoglobin 14.3 13.5 - 17.5 g/dL LAB HEMETOLOGY METHOD 04/24/2025 6:49 PM EDT [facility] Hematocrit 42.5 42.0 - 54.0 % LAB HEMETOLOGY METHOD 04/24/2025 6:49 PM EDT [facility] MCV 93.4 79.0 - 98.0 FL LAB HEMETOLOGY METHOD 04/24/2025 6:49 PM EDT [facility] MCH 31.4 27.0 - 32.0 pcg LAB HEMETOLOGY METHOD 04/24/2025 6:49 PM EDT [facility] MCHC 33.6 32.0 - 37.0 g/dL LAB HEMETOLOGY METHOD 04/24/2025 6:49 PM EDT [facility] RDW 13.2 11.0 - 15.0 % LAB HEMETOLOGY METHOD 04/24/2025 6:49 PM EDT [facility] Platelets 222 130 - 400 K/mcL LAB HEMETOLOGY METHOD 04/24/2025 6:49 PM EDT [facility] MPV 10.1 7.0 - 11.0 FL LAB HEMETOLOGY METHOD 04/24/2025 6:49 PM EDT [facility] NRBC 0.0 <1.0 % LAB HEMETOLOGY METHOD 04/24/2025 6:49 PM EDT [facility] NRBC Absolute 0.00 <0.10 K/mcL LAB HEMETOLOGY METHOD 04/24/2025 6:49 PM EDT [facility] Neutrophils Relative 59.5 % LAB HEMETOLOGY METHOD 04/24/2025 6:49 PM EDT [facility] Lymphocytes Relative 26.7 % LAB HEMETOLOGY METHOD 04/24/2025 6:49 PM EDT [facility] Monocytes Relative 7.8 % LAB HEMETOLOGY METHOD 04/24/2025 6:49 PM EDT [facility] Eosinophils Relative 5.2 % LAB HEMETOLOGY METHOD 04/24/2025 6:49 PM EDT [facility] Basophils Relative 0.4 % LAB HEMETOLOGY METHOD 04/24/2025 6:49 PM EDT [facility] Immature Granulocytes Relative 0.4 % LAB HEMETOLOGY METHOD 04/24/2025 6:49 PM EDT [facility] Neutrophils Absolute 5.67 1.50 - 7.00 K/mcL LAB HEMETOLOGY METHOD 04/24/2025 6:49 PM EDT [facility] Lymphocytes Absolute 2.54 1.00 - 5.00 K/mcL LAB HEMETOLOGY METHOD 04/24/2025 6:49 PM EDT [facility] Monocytes Absolute 0.74 0.20 - 1.00 K/mcL LAB HEMETOLOGY METHOD 04/24/2025 6:49 PM EDT [facility] Eosinophils Absolute 0.50 0.00 - 0.50 K/mcL LAB HEMETOLOGY METHOD 04/24/2025 6:49 PM EDT [facility] Basophils Absolute 0.04 0.00 - 0.20 K/mcL LAB HEMETOLOGY METHOD 04/24/2025 6:49 PM EDT [facility] Immature Granulocytes Absolute 0.04(H) 0.00 - 0.03 K/mcL LAB HEMETOLOGY METHOD 04/24/2025 6:49 PM EDT [facility] Blood Venous blood specimen / Unknown Venipuncture / Unknown 04/24/2025 6:36 PM EDT 04/24/2025 6:43 PM EDT us Nikolay Mueller MD LAB BLOOD ORDERABLES Final Resul t [facility] [address] [place] [address], * Drug abuse screen, serum (04/24/2025 6:36 PM EDT) Amphetamine, Serum, Qualitative Negative 04/28/2025 5:43 AM EDT [facility] Barbiturate, Serum, Qualitative Negative 04/28/2025 5:43 AM EDT [facility] Benzodiazepine, Serum, Qualitative Negative 04/28/2025 5:43 AM EDT [facility] Cocaine, Serum, Qualitative Negative 04/28/2025 5:43 AM EDT [facility] Methadone, Serum, Qualitative Negative 04/28/2025 5:43 AM EDT [facility] Opiate, Serum, Qualitative Negative 04/28/2025 5:43 AM EDT [facility] Phencyclidine, Serum, Qualitative Negative 04/28/2025 5:43 AM EDT [facility] Propoxyphene, Serum, Qualitative Negative 04/28/2025 5:43 AM EDT [facility] THC, Serum, Qualitative Positive 04/28/2025 5:43 AM EDT [facility] Alcohol (Ethanol) Level Negative 04/28/2025 5:43 AM EDT [facility] Comment: Screen Decision Limits Drug Analyzed Screen Units ------ ----- Amphetamine 500 ng/mL Barbiturate 150 ng/mL Benzodiazepines 100 ng/mL Cocaine 150 ng/mL Ethanol 10 mg/dL Toxic Blood Ethanol >300 mg/dL Methadone 150 ng/mL Opiates 150 ng/mL Phencyclidine 12 ng/mL Propoxyphene 150 ng/mL THC (Cannabis) 50 ng/mL A positive immunoassay result on a serum drug screen is considered presumptive evidence for the presence of the drug or its metabolite. Since some immunoassay tests detect only inactive metabolites and others are sensitive to very low drug levels, positive results may not correlate with the patient's physiological state. For confirmation of positive immunoassay results by an alternate method or for consultation, please contact the laboratory. If applicable, any drug confirmation testing reported here was developed and the performance characteristics determined by [facility]. This confirmation testing has not been cleared or approved by the FDA. The laboratory is regulated under CLIA as qualified to perform high-complexity testing. This test is used for patient testing purposes. It should not be regarded as investigational or for research. Test performed at [facility], [address] , [place] [address] Komal Melendez MD, PhD - Boiler Or Engine Operator Blood Venous blood specimen / Unknown Venipuncture / Unknown 04/24/2025 6:36 PM EDT 04/24/2025 6:43 PM EDT us Nikolay Mueller MD LAB BLOOD ORDERABLES Final Resul t Performing Organization Address City/[facility]/ZIP Co de Phone Number [place] [address] * Thyroid stimulating hormone (04/24/2025 6:36 PM EDT) TSH 1.54 0.40 - 4.00 mcIU/mL LAB CHEMISTRY METHOD 04/24/2025 8:27 PM EDT [facility] Blood Venous blood specimen / Unknown Venipuncture / Unknown 04/24/2025 6:36 PM EDT 04/24/2025 6:43 PM EDT us Nikolay Mueller MD LAB BLOOD ORDERABLES Final Resul t Performing Organization Address [facility] Co de Phone Number [facility] [address] [place] [address], [place] [phone] * Ethanol (04/24/2025 6:36 PM EDT) Ethanol Level 5 0 - 10 mg/dL LAB CHEMISTRY METHOD 04/24/2025 7:08 PM EDT [facility] Blood Venous blood specimen / Unknown Venipuncture / Unknown 04/24/2025 6:36 PM EDT 04/24/2025 6:43 PM EDT us Nikolay Mueller MD LAB BLOOD ORDERABLES Final Resul t Performing Organization Address [facility] Co de Phone Number [facility] [address] [place] [address], [place] [phone] * (ABNORMAL) Acetaminophen level (04/24/2025 6:36 PM EDT) Acetaminophen Level <2.0(L) 10.0 - 30.0 mcg/mL LAB CHEMISTRY METHOD 04/24/2025 7:08 PM EDT [facility] Blood Venous blood specimen / Unknown Venipuncture / Unknown 04/24/2025 6:36 PM EDT 04/24/2025 6:43 PM EDT us Nikolay Mueller MD LAB BLOOD ORDERABLES Final Resul t Performing Organization Address [facility] de Phone Number [facility] [address] [place] [address], [place] [phone] * (ABNORMAL) Salicylate level (04/24/2025 6:36 PM EDT) Salicylate Level <1.7(L) 2.0 - 29.0 mg/dL LAB CHEMISTRY METHOD 04/24/2025 7:08 PM EDT [facility] Blood Venous blood specimen / Unknown Venipuncture / Unknown 04/24/2025 6:36 PM EDT 04/24/2025 6:43 PM EDT us Nikolay Mueller MD LAB BLOOD ORDERABLES Final Resul t Performing Organization Address [facility] de Phone Number [facility] [address] [place] [address], [place] [phone] * (ABNORMAL) Comprehensive metabolic panel (04/24/2025 6:36 PM EDT) Sodium 142 133 - 145 mmol/L LAB CHEMISTRY METHOD 04/24/2025 7:08 PM EDT [facility] Potassium 3.8 3.5 - 5.5 mmol/L LAB CHEMISTRY METHOD 04/24/2025 7:08 PM EDT [facility] Chloride 111(H) 96 - 110 mmol/L LAB CHEMISTRY METHOD 04/24/2025 7:08 PM EDT [facility] CO2 26 21 - 32 mmol/L LAB CHEMISTRY METHOD 04/24/2025 7:08 PM [facility] Anion Gap 5 3 - 11 LAB CHEMISTRY METHOD 04/24/2025 7:08 PM [facility] Glucose 121(H) 70 - 100 mg/dL LAB CHEMISTRY METHOD 04/24/2025 7:08 PM [facility] BUN 8 5 - 25 mg/dL LAB CHEMISTRY METHOD 04/24/2025 7:08 PM [facility] Creatinine 0.95 0.70 - 1.30 mg/dL LAB CHEMISTRY METHOD 04/24/2025 7:08 PM [facility] eGFR 107 >=60 mL/min/1. 73m2 LAB CHEMISTRY METHOD 04/24/2025 7:08 PM [facility] Comment:Calculation based on the Chronic Kidney Disease Epidemiology Collaboration (CKD-EPI) equation refit without adjustment for race. BUN/Creatinine Ratio 8.4 LAB CHEMISTRY METHOD 04/24/2025 7:08 PM [facility] Calcium 9.1 8.5 - 10.5 mg/dL LAB CHEMISTRY METHOD 04/24/2025 7:08 PM [facility] AST (SGOT) 21 10 - 42 unit/L LAB CHEMISTRY METHOD 04/24/2025 7:08 [facility] ALT (SGPT) 36 10 - 60 unit/L LAB CHEMISTRY METHOD 04/24/2025 7:08 PM [facility] Alkaline Phosphatase 59 42 - 121 unit/L LAB CHEMISTRY METHOD 04/24/2025 7:08 PM [facility] Total Protein 6.2 6.0 - 8.0 g/dL LAB CHEMISTRY METHOD 04/24/2025 7:08 PM [facility] Albumin 3.6 3.2 - 5.0 g/dL LAB CHEMISTRY METHOD 04/24/2025 7:08 PM [facility] Total Bilirubin 0.6 0.0 - 1.4 mg/dL LAB CHEMISTRY METHOD 04/24/2025 7:08 PM EDT [facility] ([facility]) [facility] Blood Venous blood specimen / Unknown Venipuncture / Unknown 04/24/2025 6:36 PM EDT 04/24/2025 6:43 PM EDT us Nikolay Mueller MD LAB BLOOD ORDERABLES Final Resul t [facility] ([facility]) [facility] [address] [place] [address], [place] [phone] from Last 3 Months Insurance MEDICARE MEDICAID - [place] Care Teams Laser Printing Operator Relationship Specialty Start Date End Date Sreekanth Hurtado MD [address] PCP - General Psychiatry 01/01/25
--- NOTE | 2025-06-05 15:29 | PC.NURSE ---
Pt currently not cooperative with obtaining blood or urine samples, stating he is a medieval and can not consent to giving his blood ; pt has hx of refusing care on arrival to ER; pt otherwise cooperative and calm; awaiting MD najera
--- NOTE | 2025-06-05 15:58 | MHC.EDTECH ---
Patient politely declining labs at this time as it is against the law in [place] [facility] [place]. RN aware
--- NOTE | 2025-06-05 17:08 | PC.NURSE ---
Care produce service team member at bedside for eval; pt continues to refuse to give urine sample or have blood drawn
[2025-06-05 18:32] VITALS: BP 120/67; PULSE 87; RESP 16; TEMP 36.1; O2SAT 95
== END 2025-06-05 18:33 | disposition skilled nursing facility (03) ==
PROVIDERS: Emergency Provider Emergency Medicine
DX: F25.9 Schizoaffective disorder, unspecified (principal); R45.851 Suicidal ideations; Z79.899 Other long term (current) drug therapy
CPT/HCPCS: 99284; S9485

== ENCOUNTER 2025-07-01 19:06 | Inpatient (IN) | payer MEDICARE, MEDICAID, SELFPAY ==
[2025-07-01 19:25] VITALS: BP 122/81; PULSE 70; RESP 18; TEMP 36.3; O2SAT 98
--- NOTE | 2025-07-01 19:31 | PC.NURSE ---
Addendum entered by George Bejarano RN 07/01/25 23:23: Patient arrived on M-5 at 19:15 by ambulance from [facility]. Patient lives at a long-term in [place]. On 06/30/25 he was evaluated by [facility] crisis staff after he exhibited signs of delusional thought process, and making homicidal statements towards long-term staff. Patient stated to [facility] staff that he was experiencing command audio hallucinations, voices telling him to not take his medications. Consequently patient was off hid medications for 2 days. He did not feel safe at the long-term, and he made homicidal threats to staff. Patient denies any pain. Skin check was unremarkable. Patient was oriented to the unit, medications reconciliation completed. He was placed on 15 minutes safety checks. Original Note: Arrived to unit at 19:15. Clothing changeover done. Skin check is unremarkable.
[2025-07-02 08:00] VITALS: PULSE 61; RESP 15; TEMP 36.4; O2SAT 95
--- NOTE | 2025-07-02 08:11 | P.CONHOSP_ITS ---
History of Present Illness Data of Consult Service Date: 07/02/25 Primary Care Provider: Cody Odell MD [facility] Reason for consult: Medical management 34-year-old male with past medical history of schizoaffective disorder, bipolar disorder, anxiety, hypothyroid, alcohol use, polysubstance use, hyperlipidemia presented to [facility] with auditory hallucinations and delusions. His lab work was negative for any anemia, leukocytosis, renal or liver issues, electrolyte imbalances. On exam he denies any medical concerns. Declines medical exam. Does not appear to be in any distress. Review of Systems Review of Systems: Denies any shortness of breath, chest pain, dizziness, lightheadedness, abdominal pain or discomfort, nausea vomiting or diarrhea. Reports he feels fine PMFSH Medical History Hallucination, visual Substance abuse Violent behavior Schizoaffective disorder Social History Household Members: Other Household Members Other:: Patient resides at a penitentiary with 24 hours a day staff available Housing: Other Housing Other:: [facility] Do you presently have visiting nurse or other home services: Yes ([facility] provide support with medications, safety supervision) Alcohol intake: never Patient Tobacco Use Status: Never used Tobacco Tobacco use type: Cigarette Cigarettes Per Day: 3 Years Smoked: unsure e-Cigarette/Vaping Use: Never Used Second Hand Smoke Exposure: No Substance Use Type: Crack/Cocaine Currently Displaying Signs/Symptoms of Drug Intoxication Withdrawal: No Have you been hit, kicked, punched, or otherwise hurt by someone within the past year? If so, by whom?: No Do you feel safe in your current relationship?: No Current Relationship Is there a partner from a previous relationship who is making you feel unsafe now?: No Are you made to feel afraid or neglected: No Advance Directives: No Advance Directives Information Provided: Yes Do you have thoughts of harming others: None Do you have a plan to hurt others: No Plan Recently lost weight without trying: No Nutrition Risks: No Nutritional Risk Poor oral hygiene: No service: No Sexual orientation: Straight/Heterosexual Meds Allergies Allergy/AdvReac Type Severity Reaction Status Date / Time quetiapine (From SEROQUEL) Allergy Severe ANAPHYLAXIS Verified 06/05/25 15:17 haloperidol (HALOPERIDOL) Allergy Intermediate SWELLING Verified 06/05/25 15:17 trazodone Allergy Unknown Verified 06/05/25 15:17 Active Medications: Current Medications Acetaminophen (Acetaminophen 325 Mg Tablet) 650 mg PO Q6H PRN PRN Reason: Headache/Pain, Scale 1-10 Al Hydroxide/Mg Hydroxide (Magnesium Hydrox/Alum Hydrox 30 Ml Oral.Susp) 30 ml PO Q6H PRN PRN Reason: Heartburn/Nausea Atorvastatin Calcium (Atorvastatin Calcium 10 Mg Tablet) 10 mg PO BEDTIME [facility] Last Admin: 07/01/25 21:48 Dose: 10 mg Divalproex Sodium (Divalproex Sodium 500 Mg Tablet.) 1,500 mg PO BEDTIME [facility] Last Admin: 07/01/25 21:48 Dose: 1,500 mg Hydroxyzine HCl (Hydroxyzine Hcl 25 Mg Tablet) 25 mg PO Q6H PRN PRN Reason: mild anxiety Levothyroxine Sodium (Levothyroxine Sodium 75 Mcg Tablet) 75 mcg PO DAILY@0600 [facility] Last Admin: 07/02/25 05:55 Dose: 75 mcg [place] Carbonate ([place] Carbonate Er 450 Mg Tablet.Er) 900 mg PO BEDTIME [facility] Last Admin: 07/01/25 21:48 Dose: 900 mg Magnesium Hydroxide (Milk Of Magnesia 30 Ml Oral.Susp) 30 ml PO DAILY PRN PRN Reason: Constipation Nicotine (Nicotine 21 Mg Patch.Td24) 21 mg TRANSDERMA DAILY PRN PRN Reason: nicotine craving Nicotine Polacrilex (Nicotine Polacrilex 2 Mg Gum) 2 mg BUCCAL Q2H PRN PRN Reason: Nicotine Cravings Olanzapine (Olanzapine 10 Mg Tablet) 30 mg PO BEDTIME [facility] Last Admin: 07/01/25 21:48 Dose: 30 mg Omeprazole (Omeprazole 20 Mg Capsule.) 20 mg PO DAILY@0630 [facility] Last Admin: 07/02/25 05:55 Dose: 20 mg Risperidone (Risperidone 2 Mg Tablet) 4 mg PO DAILY [facility] Home Medications ?Medication ?Instructions ?Recorded ?Confirmed ?Last Taken ?Type atorvastatin 10 mg tablet 10 mg PO BEDTIME 12/17/2401/06/25 08:00 History levothyroxine 75 mcg tablet 75 mcg PO DAILY@0600 disor arie of 12/25/24 07/01/25 01/06/25 06:30 History thyroid gland pantoprazole 40 mg tablet,delayed 40 mg PO DAILY@0630 12/25/24 07/01/25 01/06/25 06:30 History release olanzapine 15 mg tablet 30 mg PO BEDTIME 01/12/25 Unknown History risperidone 2 mg tablet (Risperdal) 4 mg PO DAILY 05/3107/01/25 Unknown History divalproex 500 mg tablet,delayed 1,500 mg PO BEDTIME 0 01/14/25 07/01/25 Unknown History release lithium carbonate 450 mg 900 mg PO BEDTIME 01/14/25 0 07/01/25 Unknown History tablet,extended release Physical Exam Vital Signs and Narrative: Vital Signs: Last Vital Signs Temp 97.3 F 07/01/25 19: Pulse 70 07/01/25 19:25 Resp 18 07/01/25 19:25 BP 122/81 07/01/25 19: Pulse Ox 98 07/01/25 19:25 O2 Del Method Room Air 07/01/25 19:25 CONST: Alert and oriented, in NAD. Well nourished HEENT: Normocephalic, atraumatic, MMM RESP:RRR even and regular HEART: Declined GI: Declined :Deferred SKIN: Warm dry and intact, no visible lesions or rashes NEURO: Moves all extremities, Speech clear PSYCH: Uncooperative Assessment and Plan (1) Schizoaffective disorder: Qualifiers: Schizoaffective disorder type: unspecified Qualified Code(s): F25.9 - Schizoaffective disorder, unspecified Status: Acute Plan 34-year-old male with past medical history of schizoaffective disorder, bipolar disorder, antisocial personality disorder, EtOH and cocaine use admitted here for mood stabilization after he presented to the [facility] ED with auditory hallucinations and delusions. Seen today for a medical consultation. Schizoaffective disorder/bipolar disorder/antisocial personality disorder/EtOH/Cocaine use Plan per psychiatric team Medical evaluation was limited due to patient's cooperation. Please reconsult if any medical concerns arise Thank you for allowing me to participate in the care of this patient.
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
--- NOTE | 2025-07-02 11:26 | PC.NURSE ---
Pt adamantly denies having risperadol prescribed to him. Provider aware. Highly delusional, paranoid and suspicious. Stop offering my atarax, that will take my nuts off. If you don't take risperadol off of my schedule, I am terry gto cast a spell on everyone and give the psoriasis. I am about to take action like I did on 06/17.
[2025-07-02 20:00] VITALS: BP 115/74; PULSE 74; TEMP 35.9; O2SAT 97
--- NOTE | 2025-07-03 07:46 | P.PNPSI_ITS ---
Subjective Subjective Date of Service: 07/03/25 Reason For Visit: psychosis Subjective Notes: 3 Day Healthcare Proxy: No Guardianship: No Medical Problems Affecting Mental Status: No Interim History: 34 yo very startled when provider knocked on door and came in so, didn't want to speak to provider- appears guarded and vigilant- Nursing reports pacing, and refused am risperidone yesterday- takes meds at night only - Medication Compliance: Intermittent Attending Groups: No Review of Systems Acute medical concerns: No Medical Review of Systems: unchanged Mental Status Exam Mental Status Exam Narrative: dressed in regular clothing, guarded and reactive- startles easily Diagnostics Vital Signs (24Hr): Vital Signs - 24 hr 07/02/25 08:00 07/02/25 20:00 Temperature 97.5 F 96.6 F L Pulse Rate 61 74 Respiratory Rate 15 Blood Pressure 115/74 Pulse Oximetry 95 97 Oxygen Delivery Method Room Air Room Air Medications Medications Current Medications Acetaminophen (Acetaminophen 325 Mg Tablet) 650 mg PO Q6H PRN PRN Reason: Headache/Pain, Scale 1-10 Al Hydroxide/Mg Hydroxide (Magnesium Hydrox/Alum Hydrox 30 Ml Oral.Susp) 30 ml PO Q6H PRN PRN Reason: Heartburn/Nausea Atorvastatin Calcium (Atorvastatin Calcium 10 Mg Tablet) 10 mg PO BEDTIME [facility] Last Admin: 07/02/25 20:23 Dose: 10 mg Divalproex Sodium (Divalproex Sodium 500 Mg Tablet.Dr) 1,500 mg PO BEDTIME [facility] Last Admin: 07/02/25 20:23 Dose: 1,500 mg Levothyroxine Sodium (Levothyroxine Sodium 75 Mcg Tablet) 75 mcg PO DAILY@0600 [facility] Last Admin: 07/03/25 06:31 Dose: 75 mcg [place] Carbonate ([place] Carbonate Er 450 Mg Tablet.Er) 900 mg PO BEDTIME [facility] Last Admin: 07/02/25 20:23 Dose: 900 mg Magnesium Hydroxide (Milk Of Magnesia 30 Ml Oral.Susp) 30 ml PO DAILY PRN PRN Reason: Constipation Nicotine (Nicotine 21 Mg Patch.Td24) 21 mg TRANSDERMA DAILY PRN PRN Reason: nicotine craving Nicotine Polacrilex (Nicotine Polacrilex 2 Mg Gum) 2 mg BUCCAL Q2H PRN PRN Reason: Nicotine Cravings Last Admin: 07/02/25 18:52 Dose: 2 mg Olanzapine (Olanzapine 10 Mg Tablet) 30 mg PO BEDTIME [facility] Last Admin: 07/02/25 20:22 Dose: 30 mg Omeprazole (Omeprazole 20 Mg Capsule.) 20 mg PO DAILY@0630 [facility] Last Admin: 07/03/25 06:31 Dose: 20 mg Allergies Allergies Allergy/AdvReac Type Severity Reaction Status Date / Time quetiapine (From SEROQUEL) Allergy Severe ANAPHYLAXIS Verified 06/05/25 15:17 haloperidol (HALOPERIDOL) Allergy Intermediate SWELLING Verified 06/05/25 15:17 trazodone Allergy Unknown Verified 06/05/25 15:17 Assessment & Plan Assessment & Plan (1) Schizoaffective disorder: Qualifiers: Schizoaffective disorder type: unspecified Qualified Code(s): F25.9 - Schizoaffective disorder, unspecified Status: Acute Code(s): F25.9 - Schizoaffective disorder, unspecified (2) Antisocial personality disorder: Status: Acute Code(s): F60.2 - Antisocial personality disorder Plan HPI: Patient is a 34-year-old male with history of schizoaffective disorder, bipolar type who presents for symptom exacerbation. Patient reports he has been taking his medications. He says that over the past week, he started hearing voices that told him he will not be allowed to be mummified if he dies in his sleep at the long-term. Patient explains to repairer typewriter that he is thus worried that tetanus will moved to [place] because the only way it can be prevented is if [he] is mummified...wrapped in cloth. Patient also explains that the [facility] police are angry at him because it times or not allowed to drink until he drinks alcohol however he does not drink any alcohol because he is on medication.... Patient says that he will continue taking his home medications but does not want any changes or any other new medications (refusing risperidone even though it is prescribed by outpatient provider). Denies any SI or HI. Formulation/clinical reasoning: Patient seems to have a brief exacerbation of chronic symptoms; currently only willing to take Zyprexa and refuses Risperdal. Will continue to monitor -patient has history of cocaine use; currently unclear if patient has been using Plan: CV Q 15 minute checks Continue Zyprexa 30 mg q.h.s. Continue Depakote 1500 mg q.h.s. Continue lithium ER 900 mg q.h.s. Patient refuses Risperdal 4 mg daily Continue levothyroxine 75 mcg daily Continue PPI daily Continue atorvastatin 10 mg q.h.s. Patient has refused labs including hemoglobin A1c and lipid panel 07/03/25- startled, not taking risperidone on Olanzapine and taking all hs meds depakote- needs thyroid in am though apparently not refusing that- Informed Consent: does not understand Reason for continued inpatient stay Substantial Risk for: inability to function and rapid decompensation Time Spent With Patient Time: Total time managing care of this patient today ____ minutes.
[2025-07-03 08:00] VITALS: RESP 14
--- NOTE | 2025-07-04 07:25 | HO.PSYCHPN ---
Subjective Subjective Date of Service: 07/04/25 Reason For Visit: psychosis Subjective Notes: 3 Day Interim History: 34 yo continues quite reactive/startle, and withdrawn to room- didn't engage with provider much today but more than yesterday- lying in cot back to door- denying issues- Nursing reports pt jumping at noises,even normal noises on unit, knock on door, another patient talking near by- not coming out of room much ongoing PI ? no med refusals noted- though he did refuse blood draw yesterday Medication Compliance: Yes Side effects from medications: No Attending Groups: No Review of Systems Acute medical concerns: No Mental Status Exam Mental Status Exam Narrative: lying in bed with back to provider, one word answers , minimal engaged Diagnostics Vital Signs (24Hr): Vital Signs - 24 hr 07/03/25 08:00 Respiratory Rate 14 Medications Medications Current Medications Acetaminophen (Acetaminophen 325 Mg Tablet) 650 mg PO Q6H PRN PRN Reason: Headache/Pain, Scale 1-10 Al Hydroxide/Mg Hydroxide (Magnesium Hydrox/Alum Hydrox 30 Ml Oral.Susp) 30 ml PO Q6H PRN PRN Reason: Heartburn/Nausea Atorvastatin Calcium (Atorvastatin Calcium 10 Mg Tablet) 10 mg PO BEDTIME [facility] Last Admin: 07/03/25 20:20 Dose: 10 mg Divalproex Sodium (Divalproex Sodium 500 Mg Tablet.Dr) 1,500 mg PO BEDTIME [facility] Last Admin: 07/03/25 20:19 Dose: 1,500 mg Levothyroxine Sodium (Levothyroxine Sodium 75 Mcg Tablet) 75 mcg PO DAILY@0600 [facility] Last Admin: 07/04/25 06:06 Dose: 75 mcg [place] Carbonate ([place] Carbonate Er 450 Mg Tablet.Er) 900 mg PO BEDTIME [facility] Last Admin: 07/03/25 20:20 Dose: 900 mg Magnesium Hydroxide (Milk Of Magnesia 30 Ml Oral.Susp) 30 ml PO DAILY PRN PRN Reason: Constipation Nicotine (Nicotine 21 Mg Patch.Td24) 21 mg TRANSDERMA DAILY PRN PRN Reason: nicotine craving Nicotine Polacrilex (Nicotine Polacrilex 2 Mg Gum) 2 mg BUCCAL Q2H PRN PRN Reason: Nicotine Cravings Last Admin: 07/03/25 20:06 Dose: 2 mg Olanzapine (Olanzapine 10 Mg Tablet) 30 mg PO BEDTIME [facility] Last Admin: 07/03/25 20:20 Dose: 30 mg Omeprazole (Omeprazole 20 Mg Capsule.) 20 mg PO DAILY@0630 [facility] Last Admin: 07/04/25 06:47 Dose: 20 mg Allergies Allergies Allergy/AdvReac Type Severity Reaction Status Date / Time quetiapine (From SEROQUEL) Allergy Severe ANAPHYLAXIS Verified 06/05/25 15:17 haloperidol (HALOPERIDOL) Allergy Intermediate SWELLING Verified 06/05/25 15:17 trazodone Allergy Unknown Verified 06/05/25 15:17 Assessment & Plan Assessment & Plan (1) Schizoaffective disorder: Qualifiers: Schizoaffective disorder type: unspecified Qualified Code(s): F25.9 - Schizoaffective disorder, unspecified Status: Acute Code(s): F25.9 - Schizoaffective disorder, unspecified (2) Antisocial personality disorder: Status: Acute Code(s): F60.2 - Antisocial personality disorder Plan HPI: Patient is a 34-year-old male with history of schizoaffective disorder, bipolar type who presents for symptom exacerbation. Patient reports he has been taking his medications. He says that over the past week, he started hearing voices that told him he will not be allowed to be mummified if he dies in his sleep at the shelter. Patient explains to junior copywriter that he is thus worried that tetanus will moved to [place] because the only way it can be prevented is if [he] is mummified...wrapped in cloth. Patient also explains that the [place] police are angry at him because it times or not allowed to drink until he drinks alcohol however he does not drink any alcohol because he is on medication.... Patient says that he will continue taking his home medications but does not want any changes or any other new medications (refusing risperidone even though it is prescribed by outpatient provider). Denies any SI or HI. Formulation/clinical reasoning: Patient seems to have a brief exacerbation of chronic symptoms; currently only willing to take Zyprexa and refuses Risperdal. Will continue to monitor -patient has history of cocaine use; currently unclear if patient has been using Plan: CV Q 15 minute checks Continue Zyprexa 30 mg q.h.s. Continue Depakote 1500 mg q.h.s. Continue lithium ER 900 mg q.h.s. Patient refuses Risperdal 4 mg daily Continue levothyroxine 75 mcg daily Continue PPI daily Continue atorvastatin 10 mg q.h.s. Patient has refused labs including hemoglobin A1c and lipid panel 07/03/25- startled, not taking risperidone on Olanzapine and taking all hs meds depakote- needs thyroid in am though apparently not refusing that- 07/04- taking meds on olanzapine/lithium/depakote-isolative and easily startled - Reason for continued inpatient stay Substantial Risk for: inability to function and rapid decompensation Time Spent With Patient Time: Total time managing care of this patient today ____ minutes.
[2025-07-04 07:39] VITALS: RESP 14
[2025-07-04 21:24] VITALS: BP 106/74; PULSE 85; RESP 16; TEMP 38.6; O2SAT 99
[2025-07-05 08:00] VITALS: RESP 14
--- NOTE | 2025-07-05 09:51 | P.PNPSI_ITS ---
Subjective Subjective Date of Service: 07/05/25 Reason For Visit: psychosis Interim History: Met with patient; discussed with team Patient denies psychiatric symptoms; denies AVH and says that he is good. Difficult with which to engage but taking medications. Feels like his regular self and would like to return to assisted Mental Status Exam Mental Status Exam Narrative: Pt is alert and oriented; behavior is guarded, not wanting to engage in keeping eyes closed during discussion; patient is not in distress; dressed in hospital attire, bald, facial hair, adequate grooming; mood is described as good and affect constricted; eye contact appropriate; Speech is normal rate, volume and prosody and not pressured; no psychomotor agitation present; thought process is goal directed; Thought content not revealed; denies any SI/HI. Denied AVH. Patients insight and judgment impaired but likely at baseline and adequate. Diagnostics Vital Signs (24Hr): Vital Signs - 24 hr 07/04/25 21:24 07/05/25 08:00 Temperature 101.5 F H Pulse Rate 85 Respiratory Rate 16 14 Blood Pressure 106/74 Pulse Oximetry 99 Oxygen Delivery Method Room Air Medications Medications Current Medications Acetaminophen (Acetaminophen 325 Mg Tablet) 650 mg PO Q6H PRN PRN Reason: Headache/Pain, Scale 1-10 Al Hydroxide/Mg Hydroxide (Magnesium Hydrox/Alum Hydrox 30 Ml Oral.Susp) 30 ml PO Q6H PRN PRN Reason: Heartburn/Nausea Atorvastatin Calcium (Atorvastatin Calcium 10 Mg Tablet) 10 mg PO BEDTIME [facility] Last Admin: 07/04/25 20:21 Dose: 10 mg Divalproex Sodium (Divalproex Sodium 500 Mg Tablet.) 1,500 mg PO BEDTIME [facility] Last Admin: 07/04/25 20:21 Dose: 1,500 mg Levothyroxine Sodium (Levothyroxine Sodium 75 Mcg Tablet) 75 mcg PO DAILY@0600 [facility] Last Admin: 07/05/25 06:44 Dose: Not Given [place] Carbonate ([place] Carbonate Er 450 Mg Tablet.Er) 900 mg PO BEDTIME [facility] Last Admin: 07/04/25 20:22 Dose: 900 mg Magnesium Hydroxide (Milk Of Magnesia 30 Ml Oral.Susp) 30 ml PO DAILY PRN PRN Reason: Constipation Nicotine (Nicotine 21 Mg Patch.Td24) 21 mg TRANSDERMA DAILY PRN PRN Reason: nicotine craving Nicotine Polacrilex (Nicotine Polacrilex 2 Mg Gum) 2 mg BUCCAL Q2H PRN PRN Reason: Nicotine Cravings Last Admin: 07/04/25 20:18 Dose: 2 mg Olanzapine (Olanzapine 10 Mg Tablet) 30 mg PO BEDTIME [facility] Last Admin: 07/04/25 20:22 Dose: 30 mg Omeprazole (Omeprazole 20 Mg Capsule.Dr) 20 mg PO DAILY@0630 [facility] Last Admin: 07/05/25 06:44 Dose: Not Given Allergies Allergies Allergy/AdvReac Type Severity Reaction Status Date / Time quetiapine (From SEROQUEL) Allergy Severe ANAPHYLAXIS Verified 06/05/25 15:17 haloperidol (HALOPERIDOL) Allergy Intermediate SWELLING Verified 06/05/25 15:17 trazodone Allergy Unknown Verified 06/05/25 15:17 Assessment & Plan Assessment & Plan (1) Schizoaffective disorder: Qualifiers: Schizoaffective disorder type: unspecified Qualified Code(s): F25.9 - Schizoaffective disorder, unspecified Status: Acute Code(s): F25.9 - Schizoaffective disorder, unspecified (2) Antisocial personality disorder: Status: Acute Code(s): F60.2 - Antisocial personality disorder Plan HPI: Patient is a 34-year-old male with history of schizoaffective disorder, bipolar type who presents for symptom exacerbation. Patient reports he has been taking his medications. He says that over the past week, he started hearing voices that told him he will not be allowed to be mummified if he dies in his sleep at the assisted. Patient explains to chief writer that he is thus worried that tetanus will moved to [place] because the only way it can be prevented is if [he] is mummified...wrapped in cloth. Patient also explains that the [place] police are angry at him because it times or not allowed to drink until he drinks alcohol however he does not drink any alcohol because he is on medication.... Patient says that he will continue taking his home medications but does not want any changes or any other new medications (refusing risperidone even though it is prescribed by outpatient provider). Denies any SI or HI. Formulation/clinical reasoning: Patient seems to have a brief exacerbation of chronic symptoms; currently only willing to take Zyprexa and refuses Risperdal. Will continue to monitor -patient has history of cocaine use; currently unclear if patient has been using Plan: CV Q 15 minute checks Continue Zyprexa 30 mg q.h.s. Continue Depakote 1500 mg q.h.s. Continue lithium ER 900 mg q.h.s. Patient refuses Risperdal 4 mg daily Continue levothyroxine 75 mcg daily Continue PPI daily Continue atorvastatin 10 mg q.h.s. -patient refuses labs including hemoglobin A1c and lipid panel; also refused UDS Patient has refused labs including hemoglobin A1c and lipid panel 07/03/25- startled, not taking risperidone on Olanzapine and taking all hs meds depakote- needs thyroid in am though apparently not refusing that- 07/04- taking meds on olanzapine/lithium/depakote-isolative and easily startled - 07/05 Patient denies psychiatric symptoms; denies AVH and says that he is good. Difficult with which to engage but taking medications. Feels like his regular self and would like to return to assisted -assisted staff wonder if patient was using cocaine however patient refuses UDS so this is unknown but could be a possible trigger for symptom exacerbation. Patient seems to be returning to baseline Patient educated on: diagnosis and medication risk/benefits Informed Consent: understands, does not understand and further education needed Reason for continued inpatient stay Substantial Risk for: stable for discharge Time Spent With Patient Time: Total time managing care of this patient today ____ minutes.
[2025-07-05 22:57] VITALS: BP 116/74; PULSE 87; RESP 16; TEMP 36.3; O2SAT 97
[2025-07-06 08:00] VITALS: RESP 16
--- NOTE | 2025-07-06 10:02 | P.PNPSI_ITS ---
Subjective Subjective Date of Service: 07/06/25 Reason For Visit: psychosis Interim History: met with pt; discussed with team pt remains not willing to engage much, lying in bed w/ eyes closed; he says he's alright and looking forward to dc. Denies psych symptoms. Shipwright Apprentice showed pt med list from custodial which includes risperdal but pt says i don't care. Mental Status Exam Mental Status Exam Narrative: Pt is alert and oriented; behavior is guarded, not wanting to engage and keeping eyes closed during discussion; patient is not in distress; dressed in hospital attire, bald, facial hair, adequate grooming; mood is described as good and affect constricted; eye contact appropriate; Speech is normal rate, volume and prosody and not pressured; no psychomotor agitation present; thought process is goal directed; Thought content not revealed; denies any SI/HI. Denied AVH. Patients insight and judgment impaired but at baseline and adequate. Diagnostics Vital Signs (24Hr): Vital Signs - 24 hr 07/05/25 22:57 07/06/25 08:00 Temperature 97.3 F Pulse Rate 87 Respiratory Rate 16 16 Blood Pressure 116/74 Pulse Oximetry 97 Oxygen Delivery Method Room Air Medications Medications Current Medications Acetaminophen (Acetaminophen 325 Mg Tablet) 650 mg PO Q6H PRN PRN Reason: Headache/Pain, Scale 1-10 Al Hydroxide/Mg Hydroxide (Magnesium Hydrox/Alum Hydrox 30 Ml Oral.Susp) 30 ml PO Q6H PRN PRN Reason: Heartburn/Nausea Atorvastatin Calcium (Atorvastatin Calcium 10 Mg Tablet) 10 mg PO BEDTIME [facility] Last Admin: 07/05/25 21:13 Dose: 10 mg Divalproex Sodium (Divalproex Sodium 500 Mg Tablet.Dr) 1,500 mg PO BEDTIME [facility] Last Admin: 07/05/25 21:12 Dose: 1,500 mg Levothyroxine Sodium (Levothyroxine Sodium 75 Mcg Tablet) 75 mcg PO DAILY@0600 [facility] Last Admin: 07/06/25 06:32 Dose: Not Given [place] Carbonate ([place] Carbonate Er 450 Mg Tablet.Er) 900 mg PO BEDTIME [facility] Last Admin: 07/05/25 21:12 Dose: 900 mg Magnesium Hydroxide (Milk Of Magnesia 30 Ml Oral.Susp) 30 ml PO DAILY PRN PRN Reason: Constipation Nicotine (Nicotine 21 Mg Patch.Td24) 21 mg TRANSDERMA DAILY PRN PRN Reason: nicotine craving Nicotine Polacrilex (Nicotine Polacrilex 2 Mg Gum) 2 mg BUCCAL Q2H PRN PRN Reason: Nicotine Cravings Last Admin: 07/05/25 19:18 Dose: 2 mg Olanzapine (Olanzapine 10 Mg Tablet) 30 mg PO BEDTIME [facility] Last Admin: 07/05/25 21:11 Dose: 30 mg Omeprazole (Omeprazole 20 Mg Capsule.Dr) 20 mg PO DAILY@0630 [facility] Last Admin: 07/06/25 06:32 Dose: Not Given Allergies Allergies Allergy/AdvReac Type Severity Reaction Status Date / Time quetiapine (From SEROQUEL) Allergy Severe ANAPHYLAXIS Verified 06/05/25 15:17 haloperidol (HALOPERIDOL) Allergy Intermediate SWELLING Verified 06/05/25 15:17 trazodone Allergy Unknown Verified 06/05/25 15:17 Assessment & Plan Assessment & Plan (1) Schizoaffective disorder: Qualifiers: Schizoaffective disorder type: unspecified Qualified Code(s): F25.9 - Schizoaffective disorder, unspecified Status: Acute Code(s): F25.9 - Schizoaffective disorder, unspecified (2) Antisocial personality disorder: Status: Acute Code(s): F60.2 - Antisocial personality disorder Plan HPI: Patient is a 34-year-old male with history of schizoaffective disorder, bipolar type who presents for symptom exacerbation. Patient reports he has been taking his medications. He says that over the past week, he started hearing voices that told him he will not be allowed to be mummified if he dies in his sleep at the custodial. Patient explains to bid writer that he is thus worried that tetanus will moved to [place] because the only way it can be prevented is if [he] is mummified...wrapped in cloth. Patient also explains that the [place] police are angry at him because it times or not allowed to drink until he drinks alcohol however he does not drink any alcohol because he is on medication.... Patient says that he will continue taking his home medications but does not want any changes or any other new medications (refusing risperidone even though it is prescribed by outpatient provider). Denies any SI or HI. Formulation/clinical reasoning: Patient seems to have a brief exacerbation of chronic symptoms; currently only willing to take Zyprexa and refuses Risperdal. Will continue to monitor -patient has history of cocaine use; currently unclear if patient has been using Plan: CV Q 15 minute checks Continue Zyprexa 30 mg q.h.s. Continue Depakote 1500 mg q.h.s. Continue lithium ER 900 mg q.h.s. Patient refuses Risperdal 4 mg daily Continue levothyroxine 75 mcg daily Continue PPI daily Continue atorvastatin 10 mg q.h.s. -patient refuses labs including hemoglobin A1c and lipid panel; also refused UDS Patient has refused labs including hemoglobin A1c and lipid panel 07/03/25- startled, not taking risperidone on Olanzapine and taking all hs meds depakote- needs thyroid in am though apparently not refusing that- 07/04- taking meds on olanzapine/lithium/depakote-isolative and easily startled - 07/05 Patient denies psychiatric symptoms; denies AVH and says that he is good. Difficult with which to engage but taking medications. Feels like his regular self and would like to return to custodial -custodial staff wonder if patient was using cocaine however patient refuses UDS so this is unknown but could be a possible trigger for symptom exacerbation. Patient seems to be returning to baseline 07/06 remains at baseline. in good behavioral and impulse control. [facility] staff agree pt at baseline and welcomed back. pt is not in imminent risk for harm to self or others and appropriate to return to community for treatment. Patient educated on: diagnosis and medication risk/benefits Informed Consent: understands, does not understand and further education needed Reason for continued inpatient stay Substantial Risk for: stable for discharge Time Spent With Patient Time: Total time managing care of this patient today ____ minutes.
--- NOTE | 2025-07-06 15:43 | PM.PSYDC ---
DS: Providers Provider Date of Service: 07/07/25 Date of admission: 07/01/25 19:06 Date of discharge: 07/07/25 Primary care physician: Cody Odell MD Attending physician on admission: Sin Burgos Consults: 07/01/25 20:22 Consult to Hospitalist Routine Comment: Consulting Provider: [facility] [place] Hospitalists Reason For Exam: new external admit H+P Attending physician on discharge: Sin Burgos DS: Diagnosis Discharge Diagnosis (1) Schizoaffective disorder: Status: Acute (2) Antisocial personality disorder: Status: Acute DS: Medications Discharge Medications Home Medications: Home Medications ?Medication ?Instructions ?Recorded ?Confirmed atorvastatin 10 mg tablet 10 mg PO BEDTIME 12/17/24 07/01/25 levothyroxine 75 mcg tablet 75 mcg PO DAILY@0600 disorder of 12/25/24 07/01/25 thyroid gland pantoprazole 40 mg tablet,delayed 40 mg PO DAILY@0630 12/25/24 07/01/25 release olanzapine 15 mg tablet 30 mg PO BEDTIME 01/12/25 07/01/25 divalproex 500 mg tablet,delayed 1,500 mg PO BEDTIME 01/14/25 07/01/25 release lithium carbonate 450 mg 900 mg PO BEDTIME 01/14/25 07/01/25 tablet,extended release Mental Status Exam Mental Status Exam Narrative: Pt is alert and oriented; behavior is guarded, not wanting to engage; patient is not in distress; dressed in adequate attire, bald, facial hair, adequate grooming; mood is described as alright and affect constricted; eye contact appropriate; Speech is normal rate, volume and prosody and not pressured; no psychomotor agitation present; thought process is goal directed; Thought content not revealed; denies any SI/HI. Denied AVH. Patients insight and judgment impaired but at baseline and adequate. DS: Summary Hospital Course Hospital Course: HPI: Patient is a 34-year-old male with history of schizoaffective disorder, bipolar type who presents for symptom exacerbation. Patient reports he has been taking his medications. He says that over the past week, he started hearing voices that told him he will not be allowed to be mummified if he dies in his sleep at the long term. Patient explains to jingle writer that he is thus worried that tetanus will moved to [place] because the only way it can be prevented is if [he] is mummified...wrapped in cloth. Patient also explains that the [place] police are angry at him because it times or not allowed to drink until he drinks alcohol however he does not drink any alcohol because he is on medication.... Patient says that he will continue taking his home medications but does not want any changes or any other new medications (refusing risperidone even though it is prescribed by outpatient provider). Denies any SI or HI. Formulation/clinical reasoning: Patient seems to have a brief exacerbation of chronic symptoms; currently only willing to take Zyprexa and refuses Risperdal. Will continue to monitor -patient has history of cocaine use; currently unclear if patient has been using Plan: CV Q 15 minute checks Continue Zyprexa 30 mg q.h.s. Continue Depakote 1500 mg q.h.s. Continue lithium ER 900 mg q.h.s. Patient refuses Risperdal 4 mg daily Continue levothyroxine 75 mcg daily Continue PPI daily Continue atorvastatin 10 mg q.h.s. -patient refuses labs including hemoglobin A1c and lipid panel; also refused UDS Patient has refused labs including hemoglobin A1c and lipid panel 07/03/25- startled, not taking risperidone on Olanzapine and taking all hs meds depakote- needs thyroid in am though apparently not refusing that- 07/04- taking meds on olanzapine/lithium/depakote-isolative and easily startled - 07/05 Patient denies psychiatric symptoms; denies AVH and says that he is good. Difficult with which to engage but taking medications. Feels like his regular self and would like to return to long term -long term staff wonder if patient was using cocaine however patient refuses UDS so this is unknown but could be a possible trigger for symptom exacerbation. Patient seems to be returning to baseline 07/06 remains at baseline. in good behavioral and impulse control. custodial staff agree pt at baseline and welcomed back. Impression: pt is at baseline. suspect that pt used cocaine which triggered exacerbation of symptoms which has now resolved. Pt refused to discuss substance abuse or treatment. Pt of course is vulnerable to decompensation especially of he engages in substance abuse, however this is issue will not resolve with longer inpt stay and pt is returning to a structured and supportive environment. Pt is not in imminent risk for harm to self or others and appropriate to return to community for treatment. Time spent discussing smoking cessation with patient: 3 to 10 minutes (refused to discuss) Status at Discharge Functional status at discharge: independent ambulation Overall status at discharge: patient is back to baseline Time Spent with Patient Time attestation: Total time managing care of this patient today _40___ minutes. Time spent: Greater than 30 minutes Specific discharge activities: met with pt; discussed with team; charting Discharge Plan Discharge Anticipated Discharge Date/Time: 07/07/25 11:42 Patient Disposition: Home, Self-Care Discharge Diagnosis: schizoaffective disorder, bipolar type Referrals: Cody Odell MD [Primary Care Provider, Cardiac Surgery] - 1 Week Discharge Medications: Continued divalproex 500 mg tablet,delayed release (DR/EC) 1,500 mg PO BEDTIME lithium carbonate 450 mg tablet extended release 900 mg PO BEDTIME atorvastatin 10 mg tablet 10 mg PO BEDTIME levothyroxine 75 mcg tablet 75 mcg PO DAILY@0600 pantoprazole 40 mg tablet,delayed release (DR/EC) 40 mg PO DAILY@0630 olanzapine 15 mg tablet 30 mg PO BEDTIME Discontinued risperidone [Risperdal] 2 mg Tablet 4 mg PO DAILY Discharge Orders: Discharge Order (Routine); Ordered 07/07/25 Ordered By: Sin Burgos Diet: Regular diet Activity on Discharge: As tolerated Stand Alone Forms: Patient Portal Discharge page, Community Support Print Language: Japanese Care Plan Goals: Maintain mood and safe behaviors Take medications as prescribed Continue to pursue sobriety Practice coping skills Continue with outpatient providers and reach out to them as needed Health Concerns: Mood stability and behaviors Sobriety Plan of Treatment: Follow up with your PCP, psychiatric provider and other outpatient providers regarding above concerns Take medications as prescribed Assessment: Risk assessment at time of discharge:? Patient was interviewed prior to discharge and found to be fully oriented and without any SI or HI. Patient has improved insight and judgment and wants to continue treatment. Patient is not in imminent risk of harm to self or others and has a safety plan that includes presenting to the closest ER or calling 911 if feeling unsafe.? Patient has been observed closely by nursing and unit staff throughout admission; patient has not engaged in any behaviors that suggest dangerousness to self or others and has demonstrated appropriate behaviors and impulse control
[2025-07-06 20:00] VITALS: BP 117/73; PULSE 92; RESP 16; TEMP 35.6; O2SAT 96
[2025-07-07] MEDS: Naloxone HCl Nasal TAKE HOME 4 MG SPRAY 8 MG NOSTRILALT (10:01)
== END 2025-07-07 11:56 | disposition home or self-care (01) | DRG 885 ==
PROVIDERS: Admitting Provider Psychiatry & Neurology Psychiatry; PCP Internal Medicine; Visit Provider Psychiatry & Neurology Psychiatry
DX: F25.9 Schizoaffective disorder, unspecified (principal); E03.9 Hypothyroidism, unspecified; F19.90 Other psychoactive substance use, unspecified, uncomplicated; F60.2 Antisocial personality disorder; Z79.890 Hormone replacement therapy; Z79.899 Other long term (current) drug therapy

== ENCOUNTER → 2025-07-01 19:06 | Outpatient (BNV) | payer MEDICARE, MEDICAID, SELFPAY | PROVIDERS: Admitting Provider Psychiatry & Neurology Psychiatry; PCP Internal Medicine; Visit Provider Nurse Practitioner Family | DX: F25.9 Schizoaffective disorder, unspecified (principal) | CPT/HCPCS: 99221 ==

== ENCOUNTER → 2025-07-01 19:06 | Outpatient (BNV) | payer MEDICARE, MEDICAID, SELFPAY | PROVIDERS: Admitting Provider Psychiatry & Neurology Psychiatry; PCP Internal Medicine; Visit Provider Psychiatry & Neurology Psychiatry | DX: F25.9 Schizoaffective disorder, unspecified (principal); F60.2 Antisocial personality disorder | CPT/HCPCS: 90792; 99232 ==

== ENCOUNTER 2025-07-07 23:45 | Inpatient (IN) | payer MEDICARE, MEDICAID, SELFPAY ==
[2025-07-08 00:11] VITALS: BP 109/71; BP 140/92; PULSE 107; PULSE 94; RESP 17; TEMP 36.6; O2SAT 95; O2SAT 99; BMI 24.2
[2025-07-08 00:15] VITALS: RESP 16
--- NOTE | 2025-07-08 00:27 | PC.NURSE ---
Pt refusing to give bloodwork stating he got it done this am. No records present here at [facility] but pt does have area on right arm that is apparent that he had blood drawn recently
--- NOTE | 2025-07-08 00:44 | ED.PSYCH ---
HPI - Psych General Chief Complaint: Psychiatric Symptoms Stated Complaint: Behavioral Time Seen by Provider: 07/08/25 00:31 Source: patient and EMS Mode of arrival: EMS Limitations: no limitations History of Present Illness ED Provider: DR. Arnett HPI Narrative: This is a 34-year-old male with history of schizoaffective disorder, bipolar he was recently hospitalized and was discharged earlier today patient returned by ambulance today feels that he is not 100% back to his baseline and he needs to be re-evaluated and readmitted to the psych [facility] patient was discharged today admitted to smoking crack cocaine patient did not have full effect of cocaine that he would normally have and does not feel high, no SI, no HI, no AVH, no VH. Patient is refusing blood workup. Patient has no headache, no CP, no SOB, no abdominal pain. Related Data Home Medications ?Medication ?Instructions ?Recorded ?Confirmed atorvastatin 10 mg tablet 10 mg PO BEDTIME 12/17/24 07/08/25 levothyroxine 75 mcg tablet 75 mcg PO DAILY@0600 disorder of 12/25/24 07/08/25 thyroid gland olanzapine 15 mg tablet 30 mg PO BEDTIME 01/12/25 07/08/25 divalproex 500 mg tablet,delayed 1,500 mg PO BEDTIME 01/14/25 07/08/25 release lithium carbonate 450 mg 900 mg PO BEDTIME 01/14/25 07/08/25 tablet,extended release Allergies Allergy/AdvReac Type Severity Reaction Status Date / Time quetiapine (From SEROQUEL) Allergy Severe ANAPHYLAXIS Verified 07/08/25 00:14 haloperidol (HALOPERIDOL) Allergy Intermediate SWELLING Verified 07/08/25 00:14 trazodone Allergy Unknown Verified 07/08/25 00:14 Review of Systems Review of Systems: All other systems are reviewed and are negative Constitutional: Reports as per HPI and Reports no additional constitutional complaints Eyes: Reports as per HPI and Reports no additional eye complaints Reports system reviewed and no additional complaints, except as documented Cardiovascular: Reports as per HPI and Reports no additional cardiovascular complaints Respiratory: Reports as per HPI and Reports no additional respiratory complaints Gastrointestinal: Reports as per HPI and Reports no additional gastrointestinal complaints Genitourinary: Reports no additional female genitourinary complaints Musculoskeletal: Reports no additional musculoskeletal complaints Skin/Breast: Reports system reviewed and no additional complaints, except as docu Psychiatric: Reports no additional psychiatric complaints Endocrine: Reports no additional endocrine complaints Hematologic/Lymphatic: Reports no additional hematologic/lymphatic complaints Allergic/Immunologic: Reports no additional allergic/immunologic complaints Reports system reviewed and no additional complaints, except as documented and Reports Abnormal speech present [facility] Past Medical History Medical History Hallucination, visual Substance abuse Violent behavior Schizoaffective disorder Social History Social History Household Members: Other Household Members Other:: Patient resides at a skilled nursing with 24 hours a day staff available Housing: Other Housing Other:: [facility] Do you presently have visiting nurse or other home services: Yes ([facility] provide support with medications, safety supervision) Alcohol intake: never Patient Tobacco Use Status: Never used Tobacco Tobacco use type: Cigarette Cigarettes Per Day: 3 Years Smoked: unsure Smoked in Last 30 Days: Yes e-Cigarette/Vaping Use: Never Used Second Hand Smoke Exposure: No Use of substances other than those prescribed or required for medical reasons: Yes Substance Use Type: Crack/Cocaine Substance Use Frequency: Chronic Longstanding Last Used Substance: Just Prior to Admission Advance Directives: No service: No Sexual orientation: Straight/Heterosexual Physical Exam Vital Signs: Vital Signs: Last Vital Signs Temp 97.8 F 07/08/25 00:11 Pulse 94 07/08/25 00:11 Resp 16 07/08/25 00:15 BP 109/71 07/08/25 00:11 Pulse Ox 99 07/08/25 00:11 O2 Del Method Room Air 07/08/25 00:11 BMI result Body Mass Index 24.2 Vital signs have been reviewed and appear to be correct. Blood pressure elevated. Heart rate normal. Respiratory rate normal. Temperature normal. Oxygen saturation normal. Appearance: Alert. Oriented X3. No acute distress. Head: Normal external exam. Normocephalic. Atraumatic. No Abel signs noted. No raccoon eyes noted Eyes: PERRLA. EOMI. Conjunctiva and sclera normal. Eyelids normal. ENT: TM's Normal. Pharynx normal. Uvula midline. Moist mucous membranes. No trismus noted. No drooling noted. No muffled voice noted. Neck: Normal inspection. Neck supple. FROM. No adenopathy. Thyroid Normal. No meningeal signs. No neck mass noted. CVS: Normal heart rate and rhythm. Heart sound normal. No murmurs noted. Pulses normal throughout. Respiratory: No respiratory distress. Painless inspiration. Breath sounds normal. No wheezes/rales/rhonchi noted. Chest nontender. No accessory muscle usage noted or decreased air movement noted. Abdomen: Soft and nontender. Bowel sounds normal in all 4 quadrants. No distention noted. No organomegaly noted. No visible injury noted. Back: No CVA tenderness. Full range of motion noted. Skin: Skin warm and dry. Normal skin color. Normal skin turgor. No rashes/lesions/lacerations noted. Extremities: No lower extremity edema. Extremities exhibit normal range of motion. Extremities nontender. Neuro: Oriented X 3. Cranial nerve exam: II-XII are grossly intact No motor deficit. No sensory deficit. Reflexes normal. Course Reevaluation(s) Reevaluation #1: Recently discharged from patient is seeking re-evaluation for readmission to psych floor. No acute SI or HI or hallucination. Will start physician observation now on obtain care team evaluation. Time: 00:50 Reevaluation #2: Patient was evaluated by care team, bed search is underway. Time: 02:20 Medical Decision Making Differential Diagnosis Differential Diagnoses: The differential diagnosis associated with the presentation includes (Medical clearance, electrolyte derangement, severe anemia, acute psychosis.) Admission/Observation Consideration of admission/observation: Escalation of care including admission/observation considered Lab Data Labs: Lab Results 07/08/25 Range/Units 00:16 Urine Color Yellow Urine Appearance Clear Urine pH 6.0 (5.0-9.0) Ur Specific [place] 1.025 (1.005-1.025) Urine Protein 30 (1+) H (Neg-Trace) mg/dL Urine Glucose (UA) Negative (Negative) mg/dL Urine Ketones Negative (Negative) mg/dL Urine Blood Negative (Negative) Urine Nitrite Negative (Negative) Ur Leukocyte Esterase Negative (Negative) Urine RBC 0-2 (0-2) /HPF Urine WBC 0-5 (0-5) /HPF Ur Squamous Epith Cells 0-2 (0-2) /HPF Urine Bacteria None Seen (None Seen) Hyaline Casts 6-10 (0-2) /LPF Urine Opiates Screen Not Detected (Not Detect) Ur Buprenorphine Scrn Not Detected (Not Detect) ng/mL Ur Oxycodone Screen Not Detected (Not Detect) ng/mL Urine Methadone Screen Not Detected (Not Detect) ng/mL Urine Fentanyl Screen Not Detected (Not Detect) Ur Barbiturates Screen Not Detected (Not Detect) Ur Phencyclidine Scrn Not Detected (Not Detect) Ur Amphetamines Screen Not Detected (Not Detect) U Benzodiazepines Scrn Not Detected (Not Detect) Urine Cocaine Screen POSITIVE H (Not Detect) U Marijuana (THC) Screen POSITIVE H (Not Detect) Discharge Plan Discharge Clinical Impression: Schizoaffective disorder Qualifiers: Schizoaffective disorder type: unspecified Qualified Code(s): F25.9 - Schizoaffective disorder, unspecified Prescriptions: No Action divalproex 500 mg tablet,delayed release (DR/EC) 1,500 mg PO BEDTIME lithium carbonate 450 mg tablet extended release 900 mg PO BEDTIME atorvastatin 10 mg tablet 10 mg PO BEDTIME levothyroxine 75 mcg tablet 75 mcg PO DAILY@0600 olanzapine 15 mg tablet 30 mg PO BEDTIME Interventions: Uledi-Suicide Risk Severity Scale Last Done: 07/08/25 00:15 Print Language: Telugu
[2025-07-08 00:54] LABS: Appearance Urine Clear; Glucose Urine UA Negative (Negative); PH 6.0 (5.0-9.0); Specific Gravity - Urine 1.025 (1.005-1.025); UMIC TRIGGER UACC YES
[2025-07-08 01:02] LABS: Cannabinoid Screen Urine POSITIVE (Not Detect)
--- NOTE | 2025-07-08 01:33 | PC.NURSE ---
Pt refused to speak with machine quilt stuffer, got up from bed and shut door in her face. Pt is repeatedly demanding to change the music on his headphones. Pt now resting in bed
--- NOTE | 2025-07-08 04:00 | PC.NURSE ---
Pt up and down frequently, asking for food and changing music. Pt affect is very flat
[2025-07-08 06:00] VITALS: BP 112/75; PULSE 70; RESP 16; TEMP 36.7; O2SAT 98
--- NOTE | 2025-07-08 08:13 | PC.NURSE ---
Assumed care, report received. Pt is awake, calm and cooperative, he eats breakfast and asks for headphones for music. He continues to refuse blood work stating Where I come from there is no Government I will get in trouble with my Royalty If you try, I will just leave.
--- NOTE | 2025-07-08 08:38 | ECG_ITS ---
Test Reason : R/O PROLONGED QT Blood Pressure : */* mmHG Vent. Rate : 71 BPM Atrial Rate : 71 BPM P-R Int : 136 ms QRS Dur : 98 ms QT Int : 392 ms P-R-T Axes : 56 -19 31 degrees QTcB Int : 425 ms Normal sinus rhythm Normal ECG When compared with ECG of 11-Jan-2025 17:19, No significant change was found Referred By: Conrad Smalls Electronically Signed By: MAEVE DE OLIVEIRA
--- NOTE | 2025-07-08 14:10 | PC.ADMIT ---
Pt arrived at 1300 from [facility]. [place] responding to internal stimuli, secondary to crack/cocaine use. Pt was discharged from yesterday 07/07. Pt declined to participate in admission assessment. As soon as he got on the unit he refused twisting frame changer and told staff that if anyone attempted to come near him or touch him he would punch them and unleash the power of [employer] . Security was present at this time. Per Estefania Swenson ok to bypass twisting frame changer as he was changed in the Pod and have no visitors. Pt went immediately to his room where he continued to advise people to stay away from him or else . He reported this was done because [place] said so . Pt did sign a CV with LP, did sign treatment plan and Safety tool (which was taken from last admission 07/01 as he declined to participate). Pt reports I wont take any meds except injections and alcohol. And make the injections be invega, that's it! . He can be seen self dialoging and pacing the price throughout remainder of shift.
[2025-07-08 20:00] VITALS: BP 122/72; PULSE 80; RESP 15; TEMP 36.5; O2SAT 97
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
--- NOTE | 2025-07-09 08:17 | P.CONHOSP_ITS ---
History of Present Illness Data of Consult Service Date: 07/09/25 Primary Care Provider: Unknown Physician HPI Reason for consult: Medical , 34-year-old with a past medical history of schizoaffective disorder, hypot hyroidism, hyperlipidemia and bipolar disorder recently hospitalized and discharged earlier today returned back to the ER for evaluation as he felt he needed to be re-evaluated and readmitted. On exam he denied any blood work. When approached on the unit, patient denied any medical concerns and declined any physical exam. Review of Systems Review of Systems: Unobtainable due to patient's cooperation [facility] Medical History Hallucination, visual Substance abuse Violent behavior Schizoaffective disorder Social History Household Members: Family Household Members Other:: Patient resides at a correction with 24 hours a day staff available Housing: House Housing Other:: [facility] Do you presently have visiting nurse or other home services: No Alcohol intake: never Patient Tobacco Use Status: Never used Tobacco Tobacco use type: Cigarette Cigarettes Per Day: 3 Years Smoked: unsure Smoked in Last 30 Days: Yes e-Cigarette/Vaping Use: Never Used Second Hand Smoke Exposure: No Use of substances other than those prescribed or required for medical reasons: Yes Substance Use Type: Crack/Cocaine Substance Use Frequency: Chronic Longstanding Last Used Substance: Just Prior to Admission Currently Displaying Signs/Symptoms of Drug Intoxication Withdrawal: No Advance Directives: No Do you have thoughts of harming others: None Do you have a plan to hurt others: No Plan Recently lost weight without trying: No How much weight loss: Not applicable Eating poorly because of decreased appetite: No Nutrition screen score: 0 Nutrition Risks: No Nutritional Risk Poor oral hygiene: No service: No Sexual orientation: Straight/Heterosexual Meds Allergies Allergy/AdvReac Type Severity Reaction Status Date / Time quetiapine (From SEROQUEL) Allergy Severe ANAPHYLAXIS Verified 07/08/25 00:14 haloperidol (HALOPERIDOL) Allergy Intermediate SWELLING Verified 07/08/25 00:14 trazodone Allergy Unknown Verified 07/08/25 00:14 Active Medications: Current Medications Acetaminophen (Acetaminophen 325 Mg Tablet) 650 mg PO Q6H PRN PRN Reason: Headache/Pain, Scale 1-10 Al Hydroxide/Mg Hydroxide (Magnesium Hydrox/Alum Hydrox 30 Ml Oral.Susp) 30 ml PO Q6H PRN PRN Reason: Heartburn/Nausea Atorvastatin Calcium (Atorvastatin Calcium 10 Mg Tablet) 10 mg PO BEDTIME [facility] Last Admin: 07/08/25 20:12 Dose: 10 mg Divalproex Sodium (Divalproex Sodium 500 Mg Tablet.Dr) 1,500 mg PO BEDTIME OSKAR Last Admin: 07/08/25 20:12 Dose: 1,500 mg Hydroxyzine HCl (Hydroxyzine Hcl 25 Mg Tablet) 25 mg PO Q6H PRN PRN Reason: mild anxiety Levothyroxine Sodium (Levothyroxine Sodium 75 Mcg Tablet) 75 mcg PO DAILY@0600 [facility] Last Admin: 07/09/25 06:43 Dose: Not Given [place] Carbonate ([place] Carbonate Er 450 Mg Tablet.Er) 900 mg PO BEDTIME [facility] Last Admin: 07/08/25 20:12 Dose: 900 mg Magnesium Hydroxide (Milk Of Magnesia 30 Ml Oral.Susp) 30 ml PO DAILY PRN PRN Reason: Constipation Nicotine Polacrilex (Nicotine Polacrilex 2 Mg Gum) 4 mg BUCCAL Q2H PRN PRN Reason: Nicotine Cravings Last Admin: 07/08/25 20:12 Dose: 4 mg Olanzapine (Olanzapine 10 Mg Tablet) 30 mg PO BEDTIME [facility] Last Admin: 07/08/25 20:12 Dose: 30 mg Home Medications ?Medication ?Instructions ?Recorded ?Confirmed ?Last Taken ?Type atorvastatin 10 mg tablet 10 mg PO BEDTIME 12/17/2407/06/25 History levothyroxine 75 mcg tablet 75 mcg PO DAILY@0600 disor arie of 12/25/24 07/08/25 07/07/25 History thyroid gland olanzapine 15 mg tablet 30 mg PO BEDTIME 01/12/2507/06/25 History divalproex 500 mg tablet,delayed 1,500 mg PO BEDTIME 0 01/14/25 07/08/25 07/06/25 History release lithium carbonate 450 mg 900 mg PO BEDTIME 01/14/25 1 07/06/25 History tablet,extended release Physical Exam Vital Signs and Narrative: Vital Signs: Last Vital Signs Temp 97.7 F 07/08/25 20:00 Pulse 80 07/08/25 20:00 Resp 15 07/08/25 20:00 BP 122/72 07/08/25 20:00 Pulse Ox 97 07/08/25 20:00 O2 Del Method Room Air 07/08/25 06:00 BMI result Body Mass Index 24.2 CONST: Alert and oriented, in NAD. Well nourished HEENT: Normocephalic, atraumatic, MMM RESP:RRR even and regular HEART: Declined GI: Declined :Deferred SKIN: Warm dry and intact, no visible lesions or rashes NEURO: Moves all extremities, Speech clear PSYCH: Uncooperative Assessment and Plan (1) Schizoaffective disorder: Qualifiers: Schizoaffective disorder type: unspecified Qualified Code(s): F25.9 - Schizoaffective disorder, unspecified Status: Acute Plan 34-year-old male with past medical history of schizoaffective disorder, bipolar disorder, antisocial personality disorder, EtOH and cocaine use presented to the ED after being discharged earlier, he feels that he was not 100% back to his baseline requested readmission to the psychiatric unit. Schizoaffective disorder/bipolar disorder/antisocial personality disorder /EtOH/Cocaine use Plan per psychiatric team Medical evaluation was limited due to patient's cooperation. Please reconsult if any medical concerns arise Thank you for allowing me to participate in the care of this patient.
--- NOTE | 2025-07-09 16:46 | HO.PSYCHPN ---
Subjective Subjective Date of Service: 07/09/25 Reason For Visit: schizoaffective disorder Subjective Notes: Conditional Voluntary Healthcare Proxy: No Guardianship: No Medical Problems Affecting Mental Status: No Interim History: Medical record and nursing notes reviewed; case discussed during rounds with team/nursing staff, and met with patient for supportive therapy/psychoeducation, as well as medication management. Attempted to meet with patient in room, patient was in bed resting saying I am tired , cover head to toe with blanket. Did not want further assessment. Patient did not engage in assessment with hospitalist this morning nether. However, patient took all meds PO yesterday. Calmer after readmitted. Attended no groups, isolative mostly in his room. Do not express safety concerns, do not make threats today. Patient can be delusions and paranoid. Medication Compliance: Yes Side effects from medications: No Attending Groups: No Review of Systems Acute medical concerns: No Medical Review of Systems: unchanged Review of Systems Review of Systems Unobtainable due to patient's cooperation Mental Status Exam Mental Status Exam Narrative: Patient is A+O, not fullly engage in assessment, refused to meet with hospitalist. Irritable, not cooperative. Isolative in room, minimal peers and staff interaction. No SI/HI/SIB expressed. Speech is loud, and appear to be pressure. . Disorganized thoughts and not linear. Impaired judgment and insight. Diagnostics Vital Signs (24Hr): Vital Signs - 24 hr 07/08/25 20:00 Temperature 97.7 F Pulse Rate 80 Respiratory Rate 15 Blood Pressure 122/72 Pulse Oximetry 97 BMI result Body Mass Index 24.2 Labs Labs: Laboratory Results - last 48 hr 07/08/25 00:16 Urine Color Yellow Urine Appearance Clear Urine pH 6.0 Ur Specific [place] 1.025 Urine Protein 30 (1+) H Urine Glucose (UA) Negative Urine Ketones Negative Urine Blood Negative Urine Nitrite Negative Ur Leukocyte Esterase Negative Urine RBC 0-2 Urine WBC 0-5 Ur Squamous Epith Cells 0-2 Urine Bacteria None Seen Hyaline Casts 6-10 Urine Opiates Screen Not Detected Ur Buprenorphine Scrn Not Detected Ur Oxycodone Screen Not Detected Urine Methadone Screen Not Detected Urine Fentanyl Screen Not Detected Ur Barbiturates Screen Not Detected Ur Phencyclidine Scrn Not Detected Ur Amphetamines Screen Not Detected U Benzodiazepines Scrn Not Detected Urine Cocaine Screen POSITIVE H U Marijuana (THC) Screen POSITIVE H Medications Medications Current Medications Acetaminophen (Acetaminophen 325 Mg Tablet) 650 mg PO Q6H PRN PRN Reason: Headache/Pain, Scale 1-10 Al Hydroxide/Mg Hydroxide (Magnesium Hydrox/Alum Hydrox 30 Ml Oral.Susp) 30 ml PO Q6H PRN PRN Reason: Heartburn/Nausea Atorvastatin Calcium (Atorvastatin Calcium 10 Mg Tablet) 10 mg PO BEDTIME [facility] Last Admin: 07/08/25 20:12 Dose: 10 mg Divalproex Sodium (Divalproex Sodium 500 Mg Tablet.Dr) 1,500 mg PO BEDTIME [facility] Last Admin: 07/08/25 20:12 Dose: 1,500 mg Hydroxyzine HCl (Hydroxyzine Hcl 25 Mg Tablet) 25 mg PO Q6H PRN PRN Reason: mild anxiety Levothyroxine Sodium (Levothyroxine Sodium 75 Mcg Tablet) 75 mcg PO DAILY@0600 [facility] Last Admin: 07/09/25 06:43 Dose: Not Given [place] Carbonate ([place] Carbonate Er 450 Mg Tablet.Er) 900 mg PO BEDTIME [facility] Last Admin: 07/08/25 20:12 Dose: 900 mg Magnesium Hydroxide (Milk Of Magnesia 30 Ml Oral.Susp) 30 ml PO DAILY PRN PRN Reason: Constipation Nicotine Polacrilex (Nicotine Polacrilex 2 Mg Gum) 4 mg BUCCAL Q2H PRN PRN Reason: Nicotine Cravings Last Admin: 07/08/25 20:12 Dose: 4 mg Olanzapine (Olanzapine 10 Mg Tablet) 30 mg PO BEDTIME [facility] Last Admin: 07/08/25 20:12 Dose: 30 mg Allergies Allergies Allergy/AdvReac Type Severity Reaction Status Date / Time quetiapine (From SEROQUEL) Allergy Severe ANAPHYLAXIS Verified 07/08/25 00:14 haloperidol (HALOPERIDOL) Allergy Intermediate SWELLING Verified 07/08/25 00:14 trazodone Allergy Unknown Verified 07/08/25 00:14 Assessment & Plan Assessment & Plan (1) Schizoaffective disorder: Qualifiers: Schizoaffective disorder type: unspecified Qualified Code(s): F25.9 - Schizoaffective disorder, unspecified Status: Acute Code(s): F25.9 - Schizoaffective disorder, unspecified (2) Cocaine use disorder: Status: Acute Code(s): F14.10 - Cocaine abuse, uncomplicated (3) Cannabis dependence with current use: Status: Acute Code(s): F12.20 - Cannabis dependence, uncomplicated (4) Alcohol use disorder: Status: Acute Code(s): F10.90 - Alcohol use, unspecified, uncomplicated (5) Antisocial personality disorder: Status: Acute Code(s): F60.2 - Antisocial personality disorder Plan . HPI: Patient is a 34-year-old male with history of schizoaffective disorder, bipolar type who was BIBA to [facility] [place] responding to internal stimuli, secondary to crack/cocaine use. Patient was discharged from yesterday 07/07. Per previos plan from past admission (07/07/25) Formulation/clinical reasoning: Patient seems to have a brief exacerbation of chronic symptoms; currently only willing to take Zyprexa and refuses Risperdal. Will continue to monitor -patient has history of cocaine use; currently unclear if patient has been using 07/08/25: resume all home meds. Patient states that he will not take PO meds but want Invega shot. 07/09/25: Attempted to meet with patient in room, patient was in bed resting saying I am tired , cover head to toe with blanket. Did not want further assessment. Patient did not engage in assessment with hospitalist this morning nether. However, patient took all meds PO yesterday. Calmer after readmitted. Attended no groups, isolative mostly in his room. Do not express safety concerns, do not make threats today. Patient can be delusions and paranoid. Plan: CV Q 15 minute checks Continue Zyprexa 30 mg q.h.s. Continue Depakote 1500 mg q.h.s. Continue lithium ER 900 mg q.h.s. Patient refuses Risperdal 4 mg daily Continue levothyroxine 75 mcg daily Continue PPI daily Continue atorvastatin 10 mg q.h.s. Utox +OLGA, THC, BAL negative. Patient educated on: medication risk/benefits and therapeutic strategies Informed Consent: does not understand and further education needed (Did not engage in assessment or education) Reason for continued inpatient stay Substantial Risk for: rapid decompensation and med/psych decompensation Time Spent With Patient Time: Total time managing care of this patient today ____ minutes.
[2025-07-10 08:00] VITALS: RESP 16
--- NOTE | 2025-07-10 16:43 | HO.PSYCHPN ---
Subjective Subjective Date of Service: 07/10/25 Reason For Visit: schizoaffective disorder Subjective Notes: Conditional Voluntary Healthcare Proxy: No Guardianship: No Medical Problems Affecting Mental Status: No Interim History: Medical record and nursing notes reviewed; case discussed during rounds with team/nursing staff, and met with patient for supportive therapy/psychoeducation, as well as medication management. Patient slept for 9 hours, mostly isolative to self in room. In bed resting/sleeping. Patient is not fully engaged in assessment, closed eye when this provider approach. Just saying that he is fine and ask Can you ask people stop sending me pork? . Remind patient that he should fill out menu so kitchen can send him his food choices. Denies anxiety and depression. Depressed, guarded, can be delusions or paranoid. However, do not make any delusional or paranoia statements during 1-1 assessment. Compliant with meds except for Levothyroxine. Medication Compliance: Yes (except Levothyroxine ) Side effects from medications: No Attending Groups: No Review of Systems Acute medical concerns: No Medical Review of Systems: unchanged Review of Systems Review of Systems Yes Unobtainable due to mental status (Refuse to engage ) Mental Status Exam Mental Status Exam Narrative: Patient is A+O, not fully engage in assessment, underline Irritable mood, not cooperative. Isolative in room, minimal peers and staff interaction. No SI/HI/SIB expressed. Speech is quiet, soft . Disorganized thoughts and not linear. Impaired judgment and insight. Diagnostics Vital Signs (24Hr): Vital Signs - 24 hr 07/10/25 08:00 Respiratory Rate 16 BMI result Body Mass Index 24.2 Medications Medications Current Medications Acetaminophen (Acetaminophen 325 Mg Tablet) 650 mg PO Q6H PRN PRN Reason: Headache/Pain, Scale 1-10 Al Hydroxide/Mg Hydroxide (Magnesium Hydrox/Alum Hydrox 30 Ml Oral.Susp) 30 ml PO Q6H PRN PRN Reason: Heartburn/Nausea Atorvastatin Calcium (Atorvastatin Calcium 10 Mg Tablet) 10 mg PO BEDTIME [facility] Last Admin: 07/09/25 20:27 Dose: 10 mg Divalproex Sodium (Divalproex Sodium 500 Mg Tablet.) 1,500 mg PO BEDTIME [facility] Last Admin: 07/09/25 20:27 Dose: 1,500 mg Hydroxyzine HCl (Hydroxyzine Hcl 25 Mg Tablet) 25 mg PO Q6H PRN PRN Reason: mild anxiety Levothyroxine Sodium (Levothyroxine Sodium 75 Mcg Tablet) 75 mcg PO DAILY@0600 [facility] Last Admin: 07/10/25 07:58 Dose: Not Given [place] Carbonate ([place] Carbonate Er 450 Mg Tablet.Er) 900 mg PO BEDTIME [facility] Last Admin: 07/09/25 20:27 Dose: 900 mg Magnesium Hydroxide (Milk Of Magnesia 30 Ml Oral.Susp) 30 ml PO DAILY PRN PRN Reason: Constipation Nicotine Polacrilex (Nicotine Polacrilex 2 Mg Gum) 4 mg BUCCAL Q2H PRN PRN Reason: Nicotine Cravings Last Admin: 07/09/25 20:27 Dose: 4 mg Olanzapine (Olanzapine 10 Mg Tablet) 30 mg PO BEDTIME [facility] Last Admin: 07/09/25 20:27 Dose: 30 mg Allergies Allergies Allergy/AdvReac Type Severity Reaction Status Date / Time quetiapine (From SEROQUEL) Allergy Severe ANAPHYLAXIS Verified 07/08/25 00:14 haloperidol (HALOPERIDOL) Allergy Intermediate SWELLING Verified 07/08/25 00:14 trazodone Allergy Unknown Verified 07/08/25 00:14 Assessment & Plan Assessment & Plan (1) Schizoaffective disorder: Qualifiers: Schizoaffective disorder type: unspecified Qualified Code(s): F25.9 - Schizoaffective disorder, unspecified Status: Acute Code(s): F25.9 - Schizoaffective disorder, unspecified (2) Cocaine use disorder: Status: Acute Code(s): F14.10 - Cocaine abuse, uncomplicated (3) Cannabis dependence with current use: Status: Acute Code(s): F12.20 - Cannabis dependence, uncomplicated (4) Alcohol use disorder: Status: Acute Code(s): F10.90 - Alcohol use, unspecified, uncomplicated (5) Antisocial personality disorder: Status: Acute Code(s): F60.2 - Antisocial personality disorder Plan . HPI: Patient is a 34-year-old male with history of schizoaffective disorder, bipolar type who was BIBA to [facility] where [place] responding to internal stimuli, secondary to crack/cocaine use. Patient was discharged from yesterday 07/07. Per previos plan from past admission (07/07/25) Formulation/clinical reasoning: Patient seems to have a brief exacerbation of chronic symptoms; currently only willing to take Zyprexa and refuses Risperdal. Will continue to monitor -patient has history of cocaine use; currently unclear if patient has been using 07/08/25: resume all home meds. Patient states that he will not take PO meds but want Invega shot. 07/09/25: Attempted to meet with patient in room, patient was in bed resting saying I am tired , cover head to toe with blanket. Did not want further assessment. Patient did not engage in assessment with hospitalist this morning nether. However, patient took all meds PO yesterday. Calmer after readmitted. Attended no groups, isolative mostly in his room. Do not express safety concerns, do not make threats today. Patient can be delusions and paranoid. 07/10/25: Patient slept for 9 hours, mostly isolative to self in room. In bed resting/sleeping. Patient is not fully engaged in assessment, closed eye when this provider approach. Just saying that he is fine and ask Can you ask people stop sending me pork? . Remind patient that he should fill out menu so kitchen can send him his food choices. Denies anxiety and depression. Depressed, guarded, can be delusions or paranoid. However, do not make any delusional or paranoia statements during 1-1 assessment. Compliant with meds except for Levothyroxine. Plan: CV Q 15 minute checks Continue Zyprexa 30 mg q.h.s. Continue Depakote 1500 mg q.h.s. Continue lithium ER 900 mg q.h.s. Patient refuses Risperdal 4 mg daily Continue levothyroxine 75 mcg daily Continue PPI daily Continue atorvastatin 10 mg q.h.s. Utox +OLGA, THC, BAL negative. Patient educated on: medication risk/benefits and therapeutic strategies Informed Consent: further education needed Reason for continued inpatient stay Substantial Risk for: med/psych decompensation Time Spent With Patient Time: Total time managing care of this patient today ____ minutes.
[2025-07-11 08:00] VITALS: RESP 16
--- NOTE | 2025-07-11 18:28 | P.PNPSI_ITS ---
Subjective Subjective Date of Service: 07/11/25 Reason For Visit: schizoaffective disorder Subjective Notes: 3 Day Healthcare Proxy: No Guardianship: No Medical Problems Affecting Mental Status: No Interim History: Medical record and nursing notes reviewed; case discussed during rounds with team/nursing staff, and met with patient for supportive therapy/psychoeducation, as well as medication management. Slept for 8 hours, compliant with medications, but refused labs as because I am not when asked reasons for not getting it done. Denies depression anxiety. Per nursing, patient signed 3 day notice with suicide up on the , denies signs symptoms, passively engaged in conversation. Patient asked for Thorazine PRNs yesterday, added on for agitation. Appears to be preoccupied, guarded, no other issues or behaviors, mostly in his room. Medication Compliance: Yes Side effects from medications: No Attending Groups: No Review of Systems Acute medical concerns: No Medical Review of Systems: unchanged Review of Systems Review of Systems Constitutional: Denies fatigue and Denies fever(s) Cardiovascular: Denies chest pain and Denies dyspnea Respiratory: Denies dyspnea Gastrointestinal: Denies abdominal pain Psychiatric: denies suicidal ideation Endocrine: Denies fatigue Mental Status Exam Mental Status Exam Narrative: Patient is A+O, more engage in assessment, underline Irritable mood, more ooperative. Isolative in room, minimal peers and staff interaction. Denies SI/HI/SIB expressed. Speech is quiet, soft . Disorganized thoughts and not linear. Impaired judgment and insight. Diagnostics Vital Signs (24Hr): Vital Signs - 24 hr 07/11/25 08:00 Respiratory Rate 16 BMI result Body Mass Index 24.2 Medications Medications Current Medications Acetaminophen (Acetaminophen 325 Mg Tablet) 650 mg PO Q6H PRN PRN Reason: Headache/Pain, Scale 1-10 Al Hydroxide/Mg Hydroxide (Magnesium Hydrox/Alum Hydrox 30 Ml Oral.Susp) 30 ml PO Q6H PRN PRN Reason: Heartburn/Nausea Atorvastatin Calcium (Atorvastatin Calcium 10 Mg Tablet) 10 mg PO BEDTIME [facility] Last Admin: 07/10/25 20:07 Dose: 10 mg Chlorpromazine HCl (Chlorpromazine Hcl 25 Mg Tablet) 50 mg PO TID PRN PRN Reason: agitation Divalproex Sodium (Divalproex Sodium 500 Mg Tablet.) 1,500 mg PO BEDTIME [facility] Last Admin: 07/10/25 20:07 Dose: 1,500 mg Hydroxyzine HCl (Hydroxyzine Hcl 25 Mg Tablet) 25 mg PO Q6H PRN PRN Reason: mild anxiety Levothyroxine Sodium (Levothyroxine Sodium 75 Mcg Tablet) 75 mcg PO DAILY@0600 [facility] Last Admin: 07/11/25 06:11 Dose: Not Given [place] Carbonate ([place] Carbonate Er 450 Mg Tablet.Er) 900 mg PO BEDTIME [facility] Last Admin: 07/10/25 20:07 Dose: 900 mg Magnesium Hydroxide (Milk Of Magnesia 30 Ml Oral.Susp) 30 ml PO DAILY PRN PRN Reason: Constipation Nicotine Polacrilex (Nicotine Polacrilex 2 Mg Gum) 4 mg BUCCAL Q2H PRN PRN Reason: Nicotine Cravings Last Admin: 07/11/25 17:40 Dose: 4 mg Olanzapine (Olanzapine 10 Mg Tablet) 30 mg PO BEDTIME [facility] Last Admin: 07/10/25 20:07 Dose: 30 mg Allergies Allergies Allergy/AdvReac Type Severity Reaction Status Date / Time quetiapine (From SEROQUEL) Allergy Severe ANAPHYLAXIS Verified 07/08/25 00:14 haloperidol (HALOPERIDOL) Allergy Intermediate SWELLING Verified 07/08/25 00:14 trazodone Allergy Unknown Verified 07/08/25 00:14 Assessment & Plan Assessment & Plan (1) Schizoaffective disorder: Qualifiers: Schizoaffective disorder type: unspecified Qualified Code(s): F25.9 - Schizoaffective disorder, unspecified Status: Acute Code(s): F25.9 - Schizoaffective disorder, unspecified (2) Cocaine use disorder: Status: Acute Code(s): F14.10 - Cocaine abuse, uncomplicated (3) Cannabis dependence with current use: Status: Acute Code(s): F12.20 - Cannabis dependence, uncomplicated (4) Alcohol use disorder: Status: Acute Code(s): F10.90 - Alcohol use, unspecified, uncomplicated (5) Antisocial personality disorder: Status: Acute Code(s): F60.2 - Antisocial personality disorder Plan . HPI: Patient is a 34-year-old male with history of schizoaffective disorder, bipolar type who was BIBA to [facility] where he was [place] responding to internal stimuli, secondary to crack/cocaine use. Patient was discharged from yesterday 07/07. Per previos plan from past admission (07/07/25) Formulation/clinical reasoning: Patient seems to have a brief exacerbation of chronic symptoms; currently only willing to take Zyprexa and refuses Risperdal. Will continue to monitor -patient has history of cocaine use; currently unclear if patient has been using 07/08/25: resume all home meds. Patient states that he will not take PO meds but want Invega shot. 07/09/25: Attempted to meet with patient in room, patient was in bed resting saying I am tired , cover head to toe with blanket. Did not want further assessment. Patient did not engage in assessment with hospitalist this morning nether. However, patient took all meds PO yesterday. Calmer after readmitted. Attended no groups, isolative mostly in his room. Do not express safety concerns, do not make threats today. Patient can be delusions and paranoid. 07/10/25: Patient slept for 9 hours, mostly isolative to self in room. In bed resting/sleeping. Patient is not fully engaged in assessment, closed eye when this provider approach. Just saying that he is fine and ask Can you ask people stop sending me pork? . Remind patient that he should fill out menu so kitchen can send him his food choices. Denies anxiety and depression. Depressed, guarded, can be delusions or paranoid. However, do not make any delusional or paranoia statements during 1-1 assessment. Compliant with meds except for Levothyroxine. 07/11/25: Slept for 8 hours, compliant with medications, but refused labs as because I am not when asked reasons for not getting it done. Denies depression anxiety. Per nursing, patient signed 3 day notice with suicide up on the , denies signs symptoms, passively engaged in conversation. Patient asked for Thorazine PRNs yesterday, added on for agitation. Appears to be preoccupied, guarded, no other issues or behaviors, mostly in his room. Add Thorazine 50mg TID PRN for agitation. Refused lab work. Plan: CV Q 15 minute checks Continue Zyprexa 30 mg q.h.s. Continue Depakote 1500 mg q.h.s. Continue lithium ER 900 mg q.h.s. Patient refuses Risperdal 4 mg daily Continue levothyroxine 75 mcg daily Continue PPI daily Continue atorvastatin 10 mg q.h.s. Utox +OLGA, THC, BAL negative. Patient educated on: diagnosis, medication risk/benefits, substance abuse and therapeutic strategies Informed Consent: further education needed Reason for continued inpatient stay Substantial Risk for: med/psych decompensation Time Spent With Patient Time: Total time managing care of this patient today ____ minutes.
--- NOTE | 2025-07-12 09:08 | HO.PSYCHPN ---
Subjective Subjective Date of Service: 07/12/25 Reason For Visit: schizoaffective disorder Interim History: Met with patient; discussed with team; reviewed chart Patient difficult with which to engage, guarded and does not want to talk much. Says I am fine and denies any SI; denies AH; later he says they are not voices they are spirits that haunt me. Assistant Mechanic shared that it seems they worsen when he uses crack cocaine which patient disagreed and said they get better when he is crack cocaine; health underwriter shared how his using cocaine seems to coincide with getting admitted to the hospital but he again disagreed. Patient does not want any help with substance abuse treatment. He is amenable to discharging tomorrow. Mental Status Exam Mental Status Exam Narrative: Pt is alert and oriented; behavior is guarded, not wanting to engage and lying in bed during discussion; patient is not in distress; dressed in hospital attire, bald, adequate grooming; mood is described as I am fine and affect constricted; eye contact appropriate; Speech is normal rate, volume and prosody and not pressured; no psychomotor agitation present; thought process is goal directed; Thought content with paranoid ideations; denies any SI/HI. Positive for AH. Patients insight and judgment impaired but at baseline and adequate. Diagnostics Vital Signs (24Hr): BMI result Body Mass Index 24.2 Medications Medications Current Medications Acetaminophen (Acetaminophen 325 Mg Tablet) 650 mg PO Q6H PRN PRN Reason: Headache/Pain, Scale 1-10 Al Hydroxide/Mg Hydroxide (Magnesium Hydrox/Alum Hydrox 30 Ml Oral.Susp) 30 ml PO Q6H PRN PRN Reason: Heartburn/Nausea Atorvastatin Calcium (Atorvastatin Calcium 10 Mg Tablet) 10 mg PO BEDTIME OSKAR Last Admin: 07/11/25 19:40 Dose: 10 mg Chlorpromazine HCl (Chlorpromazine Hcl 25 Mg Tablet) 50 mg PO TID PRN PRN Reason: agitation Last Admin: 07/11/25 19:39 Dose: 50 mg Divalproex Sodium (Divalproex Sodium 500 Mg Tablet.) 1,500 mg PO BEDTIME OSKAR Last Admin: 07/11/25 19:40 Dose: 1,500 mg Hydroxyzine HCl (Hydroxyzine Hcl 25 Mg Tablet) 25 mg PO Q6H PRN PRN Reason: mild anxiety Levothyroxine Sodium (Levothyroxine Sodium 75 Mcg Tablet) 75 mcg PO DAILY@0600 [facility] Last Admin: 07/12/25 06:28 Dose: Not Given [place] Carbonate ([place] Carbonate Er 450 Mg Tablet.Er) 900 mg PO BEDTIME [facility] Last Admin: 07/11/25 19:40 Dose: 900 mg Magnesium Hydroxide (Milk Of Magnesia 30 Ml Oral.Susp) 30 ml PO DAILY PRN PRN Reason: Constipation Nicotine Polacrilex (Nicotine Polacrilex 2 Mg Gum) 4 mg BUCCAL Q2H PRN PRN Reason: Nicotine Cravings Last Admin: 07/11/25 17:40 Dose: 4 mg Olanzapine (Olanzapine 10 Mg Tablet) 30 mg PO BEDTIME [facility] Last Admin: 07/11/25 19:40 Dose: 30 mg Allergies Allergies Allergy/AdvReac Type Severity Reaction Status Date / Time quetiapine (From [employer] [facility]) Allergy Severe ANAPHYLAXIS Verified 07/08/25 00:14 haloperidol (HALOPERIDOL) Allergy Intermediate SWELLING Verified 07/08/25 00:14 trazodone Allergy Unknown Verified 07/08/25 00:14 Assessment & Plan Assessment & Plan (1) Schizoaffective disorder: Qualifiers: Schizoaffective disorder type: unspecified Qualified Code(s): F25.9 - Schizoaffective disorder, unspecified Status: Acute Code(s): F25.9 - Schizoaffective disorder, unspecified (2) Cocaine use disorder: Status: Acute Code(s): F14.10 - Cocaine abuse, uncomplicated (3) Cannabis dependence with current use: Status: Acute Code(s): F12.20 - Cannabis dependence, uncomplicated (4) Alcohol use disorder: Status: Acute Code(s): F10.90 - Alcohol use, unspecified, uncomplicated (5) Antisocial personality disorder: Status: Acute Code(s): F60.2 - Antisocial personality disorder Plan . HPI: Patient is a 34-year-old male with history of schizoaffective disorder, bipolar type who was BIBA to [facility] [place] responding to internal stimuli, secondary to crack/cocaine use. Patient was discharged from yesterday 07/07. Per previos plan from past admission (07/07/25) Formulation/clinical reasoning: Patient seems to have a brief exacerbation of chronic symptoms; currently only willing to take Zyprexa and refuses Risperdal. Will continue to monitor -patient has history of cocaine use; currently unclear if patient has been using 07/08/25: resume all home meds. Patient states that he will not take PO meds but want Invega shot. 07/09/25: Attempted to meet with patient in room, patient was in bed resting saying I am tired , cover head to toe with blanket. Did not want further assessment. Patient did not engage in assessment with hospitalist this morning nether. However, patient took all meds PO yesterday. Calmer after readmitted. Attended no groups, isolative mostly in his room. Do not express safety concerns, do not make threats today. Patient can be delusions and paranoid. 07/10/25: Patient slept for 9 hours, mostly isolative to self in room. In bed resting/sleeping. Patient is not fully engaged in assessment, closed eye when this provider approach. Just saying that he is fine and ask Can you ask people stop sending me pork? . Remind patient that he should fill out menu so kitchen can send him his food choices. Denies anxiety and depression. Depressed, guarded, can be delusions or paranoid. However, do not make any delusional or paranoia statements during 1-1 assessment. Compliant with meds except for Levothyroxine. 07/11/25: Slept for 8 hours, compliant with medications, but refused labs as because I am not when asked reasons for not getting it done. Denies depression anxiety. Per nursing, patient signed 3 day notice with suicide up on the , denies signs symptoms, passively engaged in conversation. Patient asked for Thorazine PRNs yesterday, added on for agitation. Appears to be preoccupied, guarded, no other issues or behaviors, mostly in his room. Add Thorazine 50mg TID PRN for agitation. Refused lab work including hemoglobin A1c, lipids, Depakote or lithium levels 07/12 Patient difficult with which to engage, guarded and does not want to talk much. Says I am fine and denies any SI; denies AH; later he says they are not voices they are spirits that haunt me. Assistant Mechanic shared that it seems they worsen when he uses crack cocaine which patient disagreed and said they get better when he is crack cocaine; health underwriter shared how his using cocaine seems to coincide with getting admitted to the hospital but he again disagreed. Patient does not want any help with substance abuse treatment. He is amenable to discharging tomorrow. -patient has returned to baseline. As with last admission, patient's psychotic symptoms, which remained at baseline, became exacerbated with using crack cocaine. Patient has a 3 day notice and would like to discharge. Agrees to discharge tomorrow Plan: CV Q 15 minute checks Continue Zyprexa 30 mg q.h.s. Continue Depakote 1500 mg q.h.s. Continue lithium ER 900 mg q.h.s. Patient refuses Risperdal 4 mg daily Continue levothyroxine 75 mcg daily Continue PPI daily Continue atorvastatin 10 mg q.h.s. Utox +OLGA, THC, BAL negative. Patient educated on: diagnosis, medication risk/benefits and substance abuse Informed Consent: understands, does not understand and further education needed Reason for continued inpatient stay Substantial Risk for: stable for discharge Time Spent With Patient Time: Total time managing care of this patient today ____ minutes.
[2025-07-12 20:00] VITALS: BP 122/79; PULSE 85; RESP 18; TEMP 36.5; O2SAT 97
[2025-07-13 08:00] VITALS: RESP 16
--- NOTE | 2025-07-13 10:02 | P.DS_ITS ---
DS: Providers Provider Date of Service: 07/13/25 Date of admission: 07/08/25 12:45 Date of discharge: 07/13/25 Primary care physician: Unknown Physician Admitting clinician: Teresa Terry Attending physician on discharge: Sin Burgos DS: Diagnosis Discharge Diagnosis (1) Schizoaffective disorder: Status: Acute (2) Cocaine use disorder: Status: Acute (3) Cannabis dependence with current use: Status: Acute (4) Alcohol use disorder: Status: Acute (5) Antisocial personality disorder: Status: Acute DS: Medications Discharge Medications Home Medications: Home Medications ?Medication ?Instructions ?Recorded ?Confirmed atorvastatin 10 mg tablet 10 mg PO BEDTIME 12/17/24 levothyroxine 75 mcg tablet 75 mcg PO DAILY@0600 disor arie of 12/25/24 07/08/25 thyroid gland olanzapine 15 mg tablet 30 mg PO BEDTIME 01/12/25 divalproex 500 mg tablet,delayed 1,500 mg PO BEDTIME 0 01/14/25 07/08/25 release lithium carbonate 450 mg 900 mg PO BEDTIME 01/14/25 1 tablet,extended release Mental Status Exam Mental Status Exam Narrative: Pt is alert and oriented; behavior remains guarded, marginally cooperative but in overall good behavioral control and at baseline; patient is not in distress; adequate grooming and hygiene; mood is described as adequate and affect constricted; eye contact appropriate; Speech is normal rate, volume and prosody and not pressured; no psychomotor agitation present; thought process is goal directed; Thought content with chronic paranoid ideations; denies any SI/HI. Positive for AH. Patients insight and judgment impaired but at baseline and adequate. Data Data Completed and Pending Completed studies during hospitalization [Text1]: 07/08/25 00:16 Urine Color Yellow Urine Appearance Clear Urine pH 6.0 Ur Specific [place] 1.025 Urine Protein 30 (1+) H Urine Glucose (UA) Negative Urine Ketones Negative Urine Blood Negative Urine Nitrite Negative Ur Leukocyte Esterase Negative Urine RBC 0-2 Urine WBC 0-5 Ur Squamous Epith Cells 0-2 Urine Bacteria None Seen Hyaline Casts 6-10 Urine Opiates Screen Not Detected Ur Buprenorphine Scrn Not Detected Ur Oxycodone Screen Not Detected Urine Methadone Screen Not Detected Urine Fentanyl Screen Not Detected Ur Barbiturates Screen Not Detected Ur Phencyclidine Scrn Not Detected Ur Amphetamines Screen Not Detected U Benzodiazepines Scrn Not Detected Urine Cocaine Screen POSITIVE H U Marijuana (THC) Screen POSITIVE H DS: Summary Hospital Course Hospital Course: HPI: Patient is a 34-year-old male with history of schizoaffective disorder, bipolar type who was BIB[place] [facility] [place] was [place] responding to internal stimuli, secondary to crack/cocaine use. Patient was discharged from yesterday 07/07. Utox +OLGA, THC Patient's exacerbation of chronic symptoms is again due to crack cocaine use; patient's senior living staff concur. Hospital course: On admission patient was agitated, refused to change management coordinator from street clothes until security was called; continued to refuse labs including hemoglobin A1c, lipid profile or Depakote and lithium levels, all of which he refused last admission as well. Patient was continued on home medication regimen which he took without problem; he briefly used Thorazine for agitation. He very quickly returned to baseline. As usual, patient remained difficult with which to engage. He denied AVH and voices though he did refer to saying that spirits bother him. Patient remained in bed, kept himself, signed a 3 day notice and wanted to return to senior living. He refused to discuss how cocaine uses exacerbating symptoms and does not want any help at all with substance abuse treatment. Patient's 3 day notice was coming due. Patient had returned to baseline. After initial agitation on admission, patient remained guarded and isolative but otherwise in good behavioral and impulse control; no SI no further agitation. Patient of course remains at risk for substance abuse and decompensation however this is a chronic struggle with him and he frequently self presents to hospitals for short stays; this chronic issue will not resolve with longer stay on inpatient unit but rather likely requires further medication management, with which patient refuses to do. Patient has significant community support and is returning to a safe and therapeutic environment. He is not in imminent risk for harm to self or others and appropriate to return to the community for treatment. Patient's staff at senior living concur. Patient's request for discharge honored Time spent discussing smoking cessation with patient: 3 to 10 minutes Status at Discharge Functional status at discharge: independent ambulation Overall status at discharge: patient is back to baseline Time Spent with Patient Time attestation: Total time managing care of this patient today __40__ minutes. Time spent: Greater than 30 minutes Specific discharge activities: Met with patient; discussed with team; charting Discharge Plan Discharge Anticipated Discharge Date/Time: 07/13/25 11:00 Patient Disposition: Home, Self-Care Discharge Diagnosis: Schizoaffective disorder bipolar type Referrals: Dr. Sreekanth Hurtado (psychiatry): [facility] [Other] - 08/03/25 10:20 am Referral Note: Hospital discharge appointment with psychiatric provider. Appointment in person at [facility] Physician,Unknown J [Primary Care Provider, Medical] - 1 Week Referral Note: Pt refused f/u appt with PCP Discharge Medications: Continued divalproex 500 mg tablet,delayed release (DR/EC) 1,500 mg PO BEDTIME lithium carbonate 450 mg tablet extended release 900 mg PO BEDTIME atorvastatin 10 mg tablet 10 mg PO BEDTIME levothyroxine 75 mcg tablet 75 mcg PO DAILY@0600 olanzapine 15 mg tablet 30 mg PO BEDTIME Discharge Orders: Discharge Order (Routine); Ordered 07/13/25 Ordered By: Sin Burgos Diet: Regular diet Activity on Discharge: As tolerated Stand Alone Forms: Patient Portal Discharge page, Community Support Print Language: Togolese Care Plan Goals: Maintain mood and safe behaviors Take medications as prescribed Continue to pursue sobriety Practice coping skills Continue with outpatient providers and reach out to them as needed Health Concerns: Mood stability and behaviors Sobriety Plan of Treatment: Follow up with your PCP, psychiatric provider and other outpatient providers regarding above concerns Take medications as prescribed Assessment: Risk assessment at time of discharge:? Patient was interviewed prior to discharge and found to be fully oriented and without any SI or HI. Patient's insight and judgment have returned to baseline and he wants to continue treatment. Patient is not in imminent risk of harm to self or others and has a safety plan that includes presenting to the closest ER or calling 911 if feeling unsafe.? Patient has been observed closely by nursing and unit staff throughout admission; patient has demonstrated appropriate behaviors and impulse control
== END 2025-07-13 11:25 | disposition home or self-care (01) | DRG 885 ==
LOC: HO.ED 07-08 00:48 → HO.PM5 07-08 12:46
PROVIDERS: Admitting Provider Clinical Nurse Specialist Psychiatric/Mental Health, Adult; Emergency Provider Emergency Medicine; Visit Provider Psychiatry & Neurology Psychiatry
DX: F25.0 Schizoaffective disorder, bipolar type (principal); F12.20 Cannabis dependence, uncomplicated; E03.9 Hypothyroidism, unspecified; E78.5 Hyperlipidemia, unspecified; F14.10 Cocaine abuse, uncomplicated; F10.90 Alcohol use, unspecified, uncomplicated; Z79.890 Hormone replacement therapy; Z79.899 Other long term (current) drug therapy
CPT/HCPCS: 80307; 81001; 93005; 99285; S9485

== ENCOUNTER → 2025-07-08 08:38 | Outpatient (BNV) | payer MEDICARE, MEDICAID, SELFPAY | PROVIDERS: Admitting Provider Clinical Nurse Specialist Psychiatric/Mental Health, Adult; Emergency Provider Emergency Medicine; Visit Provider Internal Medicine | DX: Z13.6 Encounter for screening for cardiovascular disorders (principal) | CPT/HCPCS: 93010 ==

== ENCOUNTER → 2025-07-08 12:45 | Outpatient (BNV) | payer MEDICARE, MEDICAID, SELFPAY | PROVIDERS: Admitting Provider Clinical Nurse Specialist Psychiatric/Mental Health, Adult; Emergency Provider Emergency Medicine; Visit Provider Nurse Practitioner Psychiatric/Mental Health | DX: F25.0 Schizoaffective disorder, bipolar type (principal); F14.10 Cocaine abuse, uncomplicated; F12.20 Cannabis dependence, uncomplicated; F10.90 Alcohol use, unspecified, uncomplicated; F60.2 Antisocial personality disorder | CPT/HCPCS: 90792; 99232; 99239 ==

== ENCOUNTER → 2025-07-08 12:45 | Outpatient (BNV) | payer MEDICARE, MEDICAID, SELFPAY | PROVIDERS: Admitting Provider Clinical Nurse Specialist Psychiatric/Mental Health, Adult; Emergency Provider Emergency Medicine; Visit Provider Nurse Practitioner Family | DX: F25.9 Schizoaffective disorder, unspecified (principal) | CPT/HCPCS: 99221 ==

== ENCOUNTER 2025-07-15 19:12 | Emergency (ER) | payer MEDICARE, MEDICAID, SELFPAY ==
[2025-07-15 19:17] VITALS: BP 111/70; PULSE 78; RESP 20; TEMP 35; O2SAT 96; BMI 27.8
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
--- NOTE | 2025-07-15 20:02 | PC.NURSE ---
Pt refusing lab work stating that the will not let him and he will get in trouble. (Of note, pt has extensive hx of refusing blood work for same reason)
--- NOTE | 2025-07-15 22:24 | MHC.EDTECH ---
Pt refused bloodwork, pt became agitated with this tech when approached ABOUT BLOODWORK AND SCREAMED GET OUT MY ROOM
--- NOTE | 2025-07-16 01:19 | PC.NURSE ---
Pt continued to refuse labs
--- NOTE | 2025-07-16 01:26 | PC.NURSE ---
Pt laying in bed listening to music, sandwich was provided per request. RE: meds, all 0115 medications not given due to patient refusal stating I took them already , despite pt previously reporting non-compliance with medications
[2025-07-16 04:09] VITALS: RESP 14
[2025-07-16 06:00] VITALS: RESP 14
--- NOTE | 2025-07-16 06:48 | PC.NURSE ---
holding 6am meds to avoid pt agitation
[2025-07-16 10:39] VITALS: BP 00/00; PULSE 0; RESP 18; TEMP -17.7; TEMP 0
== END 2025-07-16 10:40 | disposition home or self-care (01) ==
PROVIDERS: Emergency Provider Emergency Medicine
DX: R44.0 Auditory hallucinations (principal); R44.1 Visual hallucinations; R45.850 Homicidal ideations; Z91.148 Patient's other noncompliance with medication regimen for other reason
CPT/HCPCS: 99284; S9485

== ENCOUNTER 2025-07-21 14:05 | Inpatient (IN) | payer MEDICARE, MEDICAID, SELFPAY ==
--- OUTSIDE RECORDS SUMMARY | 2025-07-19 13:08 | XMS_ITS | Encounter Summary ---
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 Name Role Phone Sreekanth Hurtado MD Primary Care Provider Reason for Visit * Reason Comments Suicidal Encounter Details Date Type Department Care Team (Late st Contact Info) Description 07/19/2025 1:08 PM EDT - 07/21/2025 1:51 PM EDT Emergency [facility] Emergency [address] [place] [id number] Kevin Polanco MD [address] [place] [address] [id number] Bear Hunter MD [address] [place] [address] [id number] Shirley Power MD [address] [place] [id number] Star Jorge MD [address] [place] [address] [id number] Adriane Zelaya MD [address] [place] [id number] Angel Sequeira MD [address] [place] [address] Depression with suicidal ideation (Primary Dx); Homicidal ideation Discharge Disposition: Another Health Care Institution Not Defined Social History Tobacco Use Types Packs/Day Years Used Date Smoking Tobacco: Some Days Cigarettes Alcohol Use Standard Drinks/Week Comments Not Currently [...] Sign Reading Time Taken Comments Blood Pressure 97/67 07/21/2025 1:51 AM EDT Pulse 55 07/21/2025 1:51 AM EDT Temperature 36.5 C (97.7 F) 07/21/2025 1:51 AM EDT Respiratory Rate 18 07/21/2025 1:51 AM EDT Oxygen Saturation 100% 07/21/2025 1:51 AM EDT Inhaled Oxygen Concentration - - Weight 83.9 kg (185 lb) 07/19/2025 1:17 PM EDT Height 180.3 cm (5' 11 ) 07/19/2025 1:17 PM EDT Body Mass Index 25.8 07/19/2025 1:17 PM EDT documented in this encounter Functional Status * Are you deaf or do you have serious difficulty hearing? Answer Date of Assessment Author No 06/18/2025 1:39 AM EDT Paula Godinez RN * Are you blind or do you have serious difficulty seeing, even when wearing glasses? Answer Date of Assessment Author No 06/18/2025 1:39 AM EDT Paula Godinez RN * Do you have serious difficulty walking or climbing stairs? Answer Date of Assessment Author No 06/18/2025 1:39 AM EDT Paula Godinez RN * Do you have serious difficulty dressing or bathing? Answer Date of Assessment Author No 06/18/2025 1:39 AM EDT Paula Godinez RN * Because of a physical, mental, or emotional condition, do you have serious difficulty doing errandsalone such as visiting the doctor? Answer Date of Assessment Author No 06/18/2025 1:39 AM EDT Paula Godinez RN documented as of this encounter Mental Status * Because of a physical, mental, or emotional condition, do you have serious difficulty concentrating, remembering, or making decisions? (5 years old or older) Answer Entry Date Author No 06/18/2025 1:39 AM EDT Paula Godinez RN documented in this encounter Medications at [...] (1 mg total) by mouth at bedtime. buPROPion XL (WELLBUTRIN XL) 150 mg 24 [...] the tongue 2 (two) times a day. pantoprazole (PROTONIX) 40 mg EC tablet Take 1 tablet (40 mg total) by mouth 1 (one) time each day before breakfast. risperiDONE (RisperDAL) 2 mg tablet Take 2 tablets (4 mg total) by mouth 1 (one) time each day. 10/21/2024 documented as of this encounter Discharge Disposition Disposition Code Departure Means Destination Comment s Another Health Care Institution Not Defined documented in this encounter Progress Notes * Samira Yepez - 07/21/2025 11:44 AM EDT BED FOUND - Patient accepted to [facility], M5, by Dr Burgos for today 07/21/25; ETA set for 1pm. * Mary Jo Ocasio RN - 07/21/2025 8:29 AM EDT Meal tray provided Mary Jo Ocasio RN 07/21/25 0830 * Adriane Zelaya MD - 07/21/2025 3:18 AM EDT Sean Buchanan This patient's care was signed out to me by the offgoing provider. Please see her/his note for further details regarding initial presentation, history of present illness, physical exam, and medical decision making. At time of signout, the following was pending: ED Course as of 07/21/25 0853 SatJul 19, 2025 1550 Patient remained stable, at this time speaking with crisis counselor. [OR] 165 Labs thus far within normal limits. Spoke with Mimi crisis counselor, patient will be admitted to psychiatric placement. At this time, patient pending bed search. [OR] 2133 Drug screen positive for cocaine, cannabinoids, and fentanyl. Aminofen negative. ALT mildly elevated. CBC within normal limits. Salicylate negative. PCP negative. Buprenorphine negative. Methadone negative. Ethanol negative. Patient remains hemodynamically stable, and in no acute distress. [OR] 2310 Patient awaiting transfer to psych facility Bed search/arranged [AK] SatJul 20, 2025 0651 The patient was sleeping but awakened easily to verbal stimuli. He states he is feeling fine. No complaints at this time. Awaiting bed search placement [AK] 1738 No acute events during my shift. [AA] 2001 Patient signed out to me - pending Psych placement. During stay, came out and just spit at nurse. Given aggression towards staff, and threat, will add chemical sedation. [OR] SatJul 21, [address] Polanco: Pending bed search for SI, spat on nurse yesterday, got meds [EK] 0635 No acute needs during my shift. Patient's care was handed over to the oncoming provider. [EK] ED Course User Index [AA] Star Jorge MD [AK] Shirley Power MD [EK] Adriane Zelaya MD [OR] Kevin Polanco MD Clinical Impressions as of 07/21/25 0853 Depression with suicidal ideation Homicidal ideation No orders to display Labs Reviewed COMPREHENSIVE METABOLIC PANEL - Abnormal Result Value Sodium 140 Potassium 4.2 Chloride 104 CO2 29 Anion Gap 7 Glucose 88 BUN 10 Creatinine 0.96 eGFR 106 BUN/Creatinine Ratio 10.4 Calcium 9.2 AST (SGOT) 23 ALT (SGPT) 66 (*) Alkaline Phosphatase 70 Total Protein 6.8 Albumin 3.9 Total Bilirubin 0.5 ACETAMINOPHEN LEVEL - Abnormal Acetaminophen Level <2.0 (*) SALICYLATE LEVEL - Abnormal Salicylate Level <1.7 (*) DRUG ABUSE SCREEN 8A PANEL, URINE - Abnormal Amphetamine Screen, Ur Negative Barbiturate Screen, Ur Negative Benzodiazepine Screen, Ur Negative Cocaine Screen, Ur Positive (*) Opiate Screen, Ur Negative Cannabinoid (THC) Screen, Ur Positive (*) Oxycodone Screen, Ur Negative Fentanyl, Ur Positive (*) Narrative: Assay cutoffs: Amphetamines 1000 ng/mL Barbiturates 200 ng/mL Benzodiazepines 200 ng/mL Cocaine 300 ng/mL Fentanyl 1 ng/mL Opiates 300 ng/mL Oxycodone 100 ng/mL THC 50 ng/mL Semi-quantitative assay for screening purposes only. Unconfirmed screening result should not be used for non-medical purposes. *ALTERNATE METHOD CONFIRMATION DONE UPON REQUEST ONLY* CBC WITH AUTO DIFFERENTIAL - Abnormal WBC 10.6 RBC 5.10 Hemoglobin 15.9 Hematocrit 45.2 MCV 88.5 MCH 31.1 MCHC 35.2 RDW 12.3 Platelets 251 MPV 10.0 NRBC 0.0 NRBC Absolute 0.00 Neutrophils Relative 68.3 Lymphocytes Relative 21.5 Monocytes Relative 7.3 Eosinophils Relative 1.9 Basophils Relative 0.5 Immature Granulocytes Relative 0.5 Neutrophils Absolute 7.23 (*) Lymphocytes Absolute 2.27 Monocytes Absolute 0.77 Eosinophils Absolute 0.20 Basophils Absolute 0.05 Immature Granulocytes Absolute 0.05 (*) ETHANOL - Normal Ethanol Level 4 BUPRENORPHINE SCREEN, URINE - Normal Buprenorphine Screen Urine Negative Narrative: Assay cutoff 5 ng/mL Semi-quantitative assay for screening purposes only. Unconfirmed screening result should not be used for non-medical purposes. *ALTERNATE METHOD CONFIRMATION DONE UPON REQUEST ONLY* PHENCYCLIDINE, URINE - Normal PCP Scrn, Ur Negative METHADONE SCREEN, URINE - Normal Methadone Screen, Urine Negative CBC AND DIFFERENTIAL Narrative: The following orders were created for panel order CBC and differential. Procedure Abnormality Status --------- ------ CBC auto differential[[id number]] Abnormal Final result Please view results for these tests on the individual orders. Clinical Impression(s): Final diagnoses: [F32.A, R45.851] Depression with suicidal ideation [R45.850] Homicidal ideation Transfer to Another Facility Previous Medications ALBUTEROL HFA (PROAIR HFA ; PROVENTIL HFA ; VENTOLIN HFA) 90 MCG/ACTUATION INHALER Inhale 2 puffs by mouth every 4 (four) hours if needed for wheezing. ATORVASTATIN (LIPITOR) 10 MG TABLET Take 1 tablet (10 mg total) by mouth at bedtime. BENZTROPINE (COGENTIN) 1 MG TABLET Take 1 tablet (1 mg total) by mouth at bedtime. BUPROPION XL (WELLBUTRIN XL) 150 MG 24 HR TABLET Take 1 tablet (150 mg total) by mouth 1 (one) timeeach day. DIVALPROEX (DEPAKOTE) [address] TABLET Take 3 tablets (1,500 mg total) by mouth at bedtime. LEVOTHYROXINE (SYNTHROID, LEVOTHROID) 75 MCG TABLET Take 1 tablet (75 mcg total) by mouth 1 (one) time each day before breakfast. LITHIUM (ESKALITH) 450 MG CR TABLET Take 2 tablets (900 mg total) by mouth at bedtime. NICOTINE POLACRILEX (NICORETTE) [address] 1 each (4 mg total) into mouth between cheek and gumevery 1 (one) hour if needed for smoking cessation (patient needs while inpatient and in the ED - smokes well over a pack per day). OLANZAPINE (ZYPREXA ZYDIS) 20 MG DISINTEGRATING TABLET Dissolve 15 mg on top of the tongue 2 (two) times a day. PANTOPRAZOLE (PROTONIX) 40 MG EC TABLET Take 1 tablet (40 mg total) by mouth 1 (one) time each day before breakfast. RISPERIDONE (RISPERDAL) 2 MG TABLET Take 2 tablets (4 mg total) by mouth 1 (one) time each day. ED Medication Administration from 07/19/2025 1302 to 07/21/2025 0853 Date/Time Order Dose Route Action Action by 07/19/2025 1356 EDT haloperidol lactate (HALDOL) injection 5 mg 5 mg intramuscular Given [facility], 07/19/2025 1355 EDT LORazepam (ATIVAN) injection 2 mg -- intravenous Canc[facility] [place], 07/19/2025 1356 EDT LORazepam (ATIVAN) injection 2 mg 2 mg intramuscular Given [facility], 07/19/2025 2339 EDT OLANZapine (ZyPREXA ZYDIS) disintegrating tablet 15 mg 15 mg oral Given [facility], 07/20/2025 0702 EDT levothyroxine (SYNTHROID, LEVOTHROID) tablet 75 mcg 75 mcg oral Given [facility],N 07/19/2025 2339 EDT divalproex (DEPAKOTE) DR tablet 500 mg 500 mg oral Given [facility], 07/20/2025 0838 EDT divalproex (DEPAKOTE) DR tablet 500 mg 500 mg oral Given [facility], N 07/20/20252014 EDT divalproex (DEPAKOTE) DR tablet 500 mg 500 mg oral Not Given [facility], 07/20/20252013 EDT haloperidol lactate (HALDOL) injection 5 mg 5 mg intramuscular Given [facility], 07/20/20252003 EDT LORazepam (ATIVAN) injection 2 mg -- intravenous Canceled Entry [place], O 07/20/2025 2013 EDT LORazepam (ATIVAN) injection 2 mg 2 mg intramuscular Given [place], * Perla Deng RN - 07/20/2025 11:49 PM EDT Patient observed lying in bed, calm and resting-no acute distress. Patient in safety attire with security present in the pod. Continuous observation maintained via video monitoring for safety. * Seda Mendoza RN - 07/20/2025 11:06 PM EDT 4 point restraints discontinued. Patient calm, requesting something to drink. Provided with leonila yash. Sleepy but easily arousable to voice. * Seda Mendoza RN - 07/20/2025 8:00 PM EDT Pt came out of room, and spat into this RN's face. Provider notified and security at bedside. New orders pending * Seda Mendoza RN - 07/20/2025 11:15 AM EDT Assumed care of patient at this time. Pt visualized resting in bed, with eyes closed, equal unlabored chest rise and fall. Pt remains in proper safety attire and security at watch. * Tiffanie Clarke RN - 07/20/2025 7:[address] Power made aware of pt's BP, no further orders at this time * Shirley Power MD - 07/19/2025 11:24 PM EDT Patient was suicidal and homicidal ideation. Sedated for protection of patient and staff as he was threatening the nurses. Patient already medically cleared on prior shift. Awaiting transfer arrangements for psychiatric facility. ED Course as of 07/20/25 0651 Mon Jul 19, 2025 1550 Patient remained stable, at this time speaking with crisis counselor. [OR] 1655 Labs thus far within normal limits. Spoke with Mimi crisis counselor, patient will be admitted to psychiatric placement. At this time, patient pending bed search. [OR] 2133 Drug screen positive for cocaine, cannabinoids, and fentanyl. Aminofen negative. ALT mildly elevated. CBC within normal limits. Salicylate negative. PCP negative. Buprenorphine negative. Methadone negative. Ethanol negative. Patient remains hemodynamically stable, and in no acute distress. [OR] 2309 Patient awaiting transfer to [facility] facility Bed search/arranged [AK] SatJul 20, 2025 0651 The patient was sleeping but awakened easily to verbal stimuli. He states he is feeling fine. No complaints at this time. Awaiting bed search placement [AK] ED Course User Index [AK] Shirley Power MD [OR] Kevin Polanco MD Clinical Impressions as of 07/20/25 0651 Depression with suicidal ideation Homicidal ideation Data Unavailable No diagnosis found. Procedures * Kevin Polanco MD - 07/19/2025 2:16 PM EDT Sean Buchanan I personally evaluated patient after chemical sedation, and patient is hemodynamically stable and in no acute distress. Will attempt to obtain lab work again. * Antonella Bhakta RN - 07/19/2025 1:45 PM EDT Attempted to draw blood from pt , pt sts you are not drawing blood from me you slut.. just leave me alone explained to pt in order for crisis to evaluate pt , blood work and urine need to be drawnand completed . Pt then spit on this nurse, security at bedside , pt spit at security . made aware along with added security then at bedside . Pt stood up making verbal and physical threats , chemical restraint and restraints ordered . Will continue to monitor pt Antonella Bhakta RN 07/19/25 1406 * Antonella Bhakta RN - 07/19/2025 1:14 PM EDT Pt refusing to answer any questions and just saying I just want to talk to crisis * Antonella Bhakta RN - 07/19/2025 1:09 PM EDT Pt brought in by ems with c/o si . Pt was picked up from [facility] , pt was outside stating he doesn't feel safe and needs his meds. Pt refused vs per ems * Kevin Polanco MD - 07/19/2025 1:02 PM EDT HPI Chief Complaint Patient presents with Suicidal 34-year-old male with a past medical history of schizoaffective disorder, bipolar disorder, and anxiety brought in by EMS with suicidal ideation. On evaluation, patient refusing to speak, and only went to speak to crisis. Patient did spit out on nursing colleagues and also refused blood work and called nursing colleague, a slut . On my evaluation, the patient stood up, and threatened to fuck everyone up . Given this level of agitation and threat to both himself and others, chemical sedation was used. Patient was provided with 5 mg of IM Haldol, and 2 mg Ativan, both of which were used in the past, without any anaphylactic or significant allergic reaction. History provided by: Patient Javid Coma Scale Score: 15 Patient History Medical History[1] Surgical History[2] Family History[3] Social History Tobacco Use Smoking status: Some Days Types: Cigarettes Smokeless tobacco: Not on file Substance Use Topics Alcohol use: Not Currently Alcohol/week: 2.0 standard drinks of alcohol Types: 2 Cans of beer per week Drug use: Not Currently Review of Systems Review of Systems Unable to perform ROS: Psychiatric disorder Psychiatric/Behavioral: Positive for suicidal ideas. Physical Exam ED Triage Vitals [07/19/25 1317] Temp Heart Rate Resp BP -- 70 16 114/72 SpO2 Temp src Heart Rate Source Patient Position 98 % -- -- -- BP Location FiO2 (%) -- -- Physical Exam Constitutional: Appearance: Normal appearance. Eyes: Extraocular Movements: Extraocular movements intact. Conjunctiva/sclera: Conjunctivae normal. Pulmonary: Effort: Pulmonary effort is normal. Abdominal: General: Abdomen is flat. There is no distension. Musculoskeletal: General: Normal range of motion. Cervical back: Normal range of motion. Skin: General: Skin is warm. Neurological: General: No focal deficit present. Mental Status: He is alert. Psychiatric: Comments: Agitated. ED Course & MDM ED Course as of 07/21/25 1641 Mon Jul 19, 2025 1550 Patient remained stable, at this time speaking with crisis counselor. [OR] 1654 Labs thus far within normal limits. Spoke with Mimi crisis counselor, patient will be admitted to psychiatric placement. At this time, patient pending bed search. [OR] 2133 Drug screen positive for cocaine, cannabinoids, and fentanyl. Aminofen negative. ALT mildly elevated. CBC within normal limits. Salicylate negative. PCP negative. Buprenorphine negative. Methadone negative. Ethanol negative. Patient remains hemodynamically stable, and in no acute distress. [OR] 2310 Patient awaiting transfer to psych facility Bed search/arranged [AK] SatJul 20, 2025 0651 The patient was sleeping but awakened easily to verbal stimuli. He states he is feeling fine. No complaints at this time. Awaiting bed search placement [AK] 1738 No acute events during my shift. [AA] 2001 Patient signed out to me - pending Psych placement. During stay, came out and just spit at nurse. Given aggression towards staff, and threat, will add chemical sedation. [OR] Wed Jul 21, [address] Polanco: Pending bed search for SI, spat on nurse yesterday, got meds [EK] 0635 No acute needs during my shift. Patient's care was handed over to the oncoming provider. [EK] ED Course User Index [AA] Star Jorge MD [AK] Shirley Power MD [EK] Adriane Zelaya MD [OR] Kevin oPlanco MD Clinical Impressions as of 07/21/25 1641 Depression with suicidal ideation Homicidal ideation Medical Decision Making Based on this clinical presentation, this is concerning for agitation in the setting of psychiatricdisease. Patient did however endorse suicidal ideation. Patient required chemical sedation, and physical restraints, and tolerated both appropriately. Given necessity for psychiatric evaluation, labsand drug screen ordered. Crisis also consulted. Procedures Kevin Poalnco MD 07/19/25 1431 Kevin Polanco MD 07/19/255 [1] Past Medical History: Diagnosis Date Anxiety Anxiety Bipolar 1 disorder (CMS/HCC V24, CMS/HCC V28) Bipolar 1 disorder (CMS/HCC V24, CMS/HCC V28) Disease of thyroid gland Schizo affective schizophrenia (CMS/HCC V24, CMS/HCC V28) [2] History reviewed. No pertinent surgical history. [3] No family history on file. Kevin Polacno MD 07/21/25 1641 documented in this encounter Consult Notes * Mimi Mon - 07/20/2025 4:30 PM EDTAssociated Order(s): IP CONSULT TO COUNTER HELPER Images from the original note were not included. Behavioral Health Services - Mental Status Update Important times Time assessment started: 07/20/25 10:00 am Time of disposition: 07/20/25 10:30 am Location: [facility] Consulted case with: Norma Britt LCSW Insurance information: Insurance: Medicare A&B Verified by: Mimi Reason for Consultation / Presenting Problem: Sean Buchanan is being seen today for a 24 hour re-evaluation due to their state wide bed search being exhausted. He is a 34-year-old male with a past medical history of schizoaffective disorder, bipolar disorder, and anxiety brought in by EMS with suicidal ideation. On evaluation, patient refusing to speak, and only went to speak to crisis. Patient did spit out on nursing colleagues and also refused blood work and called nursing colleague, a slvalerie . On my evaluation, the patient stood up, and threatened to fuck everyone up . Given this level ofagitation and threat to both himself and others, chemical sedation was used. Patient was provided with 5 mg of IM Haldol, and 2 mg Ativan, both of which were used in the past, without any anaphylactic or significant allergic reaction. He was initially seen on 07/19/25 and deemed inpatient level of care. He was seen today for a mental status update. The nurse stated he has been calm today with no issues. Sean stated they want to keep taking my blood pressure and I was irritated . He stated but then I told them it was okay . He stated I don't want to hurt myself or anyone else . He stated I really just want to sleep right now . Collaterals, contact information, and engagement level: Therapist: Currently waiting Psychiatrist: ANISH Casas [phone] PCP: Kaley PCP Family: Sister Evelina Buchanan [phone] Other: [facility] assisted [phone] or [phone] [facility] Church Organist Gabe Zamudio [phone] or [phone] [facility] director Yancy Coates [phone] Mental Status Speech: WNL Eye Contact: Intermittent Motor Activity: WNL Mood: Neutral Affect: Flat Sleep: Fair Appetite: WNL Memory: Moderate Impairment Attention / Concentration: Moderate Impairment Behavior: Cooperative Hallucinations: Denies Delusions: Persecutory and Paranoid Thought Content: Phobic SI: Denied HI: Denied Thought Process: Flight of Ideas Orientation Impairment: Person Insight: Poor Judgment: Poor Impulse Control: Poor Medications: Scheduled Meds: MEDSSCHEDULED[1] Continuous Infusions: MEDSCONTINUOUS[2] PRN Meds: MEDSPRN[3] Risk Assessment: Self-Harm: None Suicidal Behavior: None Homicidal Behavior: None Physical Assault: None Physical Aggression: None Property Damage: None Verbal Aggression: None Family history of suicide: None reported Protective Factors: Lives in a 24 hour staffed assisted. Risk Factors: History of noncompliance with treatment At baseline is dilutional Suicide Risk: Based on patient's history and current presentation, their level of risk for intentional lethal harm is considered Low Safety Plan Completed: yes Going inpatient for stabilization. Interventions: Used brief crisis intervention. Response to interventions: Sean was responsive. DSM-5TR Diagnosis: F25.0 Schizoaffective D/O, Bipolar Type Plan: Sean denies any suicidal or homicidal plan or intent. However, he has been agitated at the grouphome and not at his baseline. He continues to benefit from inpatient level of care for safety, stabilization and medication evaluation. He is on a section 12 involuntary. Recommendations were discussed with requesting provider. It was a pleasure to assist Sean Buchanan here at [facility]. This report is written and finalized by: Mimi Mon MS Behavioral Health Specialist [facility] (Tel): [phone] / : [phone] [1] divalproex, 500 mg, oral, q12h OSKAR levothyroxine, 75 mcg, oral, q AM AC OLANZapine, 15 mg, oral, Nightly [2] [3] * Mimi Mon - 07/19/2025 3:45 PM EDTAssociated Order(s): IP CONSULT TO COUNTER HELPER Images from the original note were not included. Behavioral Health Services - Crisis Assessment Important times Time of arrival: 07/19/25 1:08 pm Time of referral: 07/19/25 1:20 pm Time of readiness: 07/19/25 3:20 pm Time assessment started: 07/19/25 3:30 pm Time of disposition: 07/19/25 4:30 pm Location: [facility] Consulted case with: Norma Britt LCSW Insurance information: Insurance: Medicare A&B Verified by: Mimi Reason for Consultation / Presenting Problem: Sean Buchanan is being seen today for a consultive service at the request of Kevin Polanco MD to assess risk and identify appropriate level of care. He is a 34-year-old male with a past medical history of schizoaffective disorder, bipolar disorder, and anxiety brought in by EMS with suicidal ideation. On evaluation, patient refusing to speak, and only went to speak to crisis. Patient did spit out on nursing colleagues and also refused blood work and called nursing colleague, a slut . On my evaluation, the patient stood up, and threatened to fuck everyone up . Given this level of agitation and threat to both himself and others, chemical s edation was used. Patient was provided with 5 mg of IM Haldol, and 2 mg Ativan, both of which were used in the past, without any anaphylactic or significant allergic reaction. Sean had been chemically medicated and restrained due to getting angry and spiting at people. Hestated I just got out of [facility] last week . He stated I just missed my medications today . Sean stated I got angry cause they told me I can do the blood lab the easy way or the hard way . He stated that made me really angry and I lashed out at them . Sean reported I don't want to hurt myself or anyone else . He stated I came here cause I want to go to a hospital . 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 He stated he two back to back hospitalizations. The quarter supervisor stated he is more delusional then his baseline and has been threatening staff to hurt them and calling them racial slurs. He statedthe last program he was at he let the Papo Order laps and he has no current Papo Order. History of Present Illness: Sean is a 34 y.o. male with Chief Complaint Patient presents with Suicidal Social/Educational History: Guardian - if Yes, provide contact information: self Status: N/A State Agency Involvement: N/A Papo's Order: None reported per [facility]. Marital Status: single Alternative Placement Details: N/A Living Situation for patient: [facility] Household Members/Age: N/A Friendships/Family/Social Peer Support/Relationships: Sean has providers working with him.. Highest level of education: 11th grade Comments (Include Learning Needs): N/A Occupation: unemployed Employment/Extracurricular Activities/Hobbies: Unemployed Limitations of Daily Activities: None reported Strengths/Supports: Sean is able to access his needs. Collaterals, contact information, and engagement level: Therapist: Currently waiting Psychiatrist: ANISH Casas [phone] PCP: Kaley JONES Family: Sister Evelina Buchanan [phone] Other: [facility] [phone] or [phone] [facility] Church Organist Gabe Zamudio [phone] or [phone] [facility] director Yancy AquinoCoates [phone] Mental Status Speech: WNL Eye Contact: WNL Motor Activity: WNL Mood: Stable Affect: Flat Sleep: WNL Appetite: WNL Memory: WNL Attention / Concentration: WNL Behavior: Cooperative at this assessment Appearance: Hallucinations: None Delusions: Delusions at baseline they keep me in a dungeon. Thought Content: Suspicious SI: Denied HI: Denied Thought Process: Goal oriented Orientation Impairment: None Insight: Poor Judgment: poor Impulse Control: WNL Substance Use History (Including family history): Sean denies drinking alcohol Marijuana sometimes . Last use yesterday. Prior history reported he uses cocaine, heroin and cannabis. Utox Results: BAL pending TOX pending Substance Use Treatment History: Sean denies any history of substance abuse treatment. Mental Health Treatment History: Outpatient Mental Health Treatment: [facility]. Previous or Current Psychological Diagnosis: Schizoaffective disorder, Bipolar Type Prior Psychiatric Hospitalizations/Residential Treatment Facilities: Sean is known to [facility]. He has a long history of impatent psychiatric hospitalizations. He reported he recently was admitted to [facility]. Other Comments Regarding Mental Health Treatment History: None reported Mental Health Concerns in Family: None reported Trauma History: Sean has a documented history of trauma. Medications: Scheduled Meds: MEDSSCHEDULED[1] Continuous Infusions: MEDSCONTINUOUS[2] PRN Meds: MEDSPRN[3] Risk Assessment: Self-Harm: None Suicidal Behavior: None Homicidal Behavior: None Physical Assault: None Physical Aggression: None Property Damage: None Verbal Aggression: None Family history of suicide: None reported Protective Factors: Lives in a 24 hour staffed assisted. Risk Factors: History of noncompliance with treatment At baseline is dilutional Suicide Risk: Based on patient's history and current presentation, their level of risk for intentional lethal harm is considered Low Safety Plan Completed: yes He lives in a assisted that is staffed 24 hours. He also has outpatient providers working with him. Interventions: Used active listening Response to interventions: Sean was engaged in the conversation. DSM-5TR Diagnosis: F25.0 Schizoaffective D/O, Bipolar Type Plan: Sean denies any suicidal or homicidal plan or intent. However, he has been agitated at the [facility] threatening staff and also here at the ER which required medications and restraints. He is a low risk for harm to himself however, is at risk for harm to others. He would benefit from inpatient level of care for safety, stabilization and medication evaluation. He is on a section 12 involuntary. Recommendations were discussed with requesting provider. It was a pleasure to assist Sean Buchanan here at [facility]. This report is written and finalized by: Mimi Mon MS Behavioral Health Specialist [facility] (Tel): [phone] / : [phone] [1] [2] [3] documented in this encounter Plan of Treatment Not on file documented as of this encounter Procedures Procedure Name Priority Date/Time Associated Diagnosis Comments DRUG ABUSE SCREEN 8A PANEL, URINE STAT 07/19/2025 5:08 PM EDT BUPRENORPHINE SCREEN, URINE STAT 07/19/2025 5:08 PM EDT METHADONE SCREEN, URINE STAT 07/19/2025 5:08 PM EDT PHENCYCLIDINE, URINE STAT 07/19/2025 5:08 PM EDT CBC WITH AUTO DIFFERENTIAL STAT 07/19/2025 2:54 PM EDT CBC AND DIFFERENTIAL STAT 07/19/2025 2:54 PM EDT ETHANOL STAT 07/19/2025 2:54 PM EDT ACETAMINOPHEN LEVEL STAT 07/19/2025 2 :54 PM EDT SALICYLATE LEVEL STAT 07/19/2025 2:54 PM EDT COMPREHENSIVE METABOLIC PANEL STAT 07/19/2025 2:54 PM EDT documented in this encounter Results * Methadone, urine (07/19/2025 5:08 PM EDT) [facility] Methadone Screen, Urine Negative Negative LAB CHEMISTRY METHOD 07/19/2025 6:47 PM EDT [facility] Comment: Assay cutoff 300 ng/mL Semi-quantitative assay for screening purposes only. Unconfirmed screening result should not be used for non-medical purposes. *ALTERNATE METHOD CONFIRMATION DONE UPON REQUEST ONLY* Urine Urine specimen obtained by clean catch procedure / Unknown Non-blood Collection / Unknown 07/19/2025 5:08 PM EDT 07/19/2025 6:03 PM EDT Bear Hunter MD LAB URINE ORDERABLES Final R esult [facility] [address] [place] [address], [place] [phone] * Phencyclidine, urine (07/19/2025 5:08 PM EDT) [facility] PCP Scrn, Ur Negative Negative LAB CHEMISTRY METHOD 07/19/2025 6:47 PM EDT [facility] Comment: Assay cutoff 25 ng/mL Semi-quantitative assay for screening purposes only. Unconfirmed screening result should not be used for non-medical purposes. *ALTERNATE METHOD CONFIRMATION DONE UPON REQUEST ONLY* Urine Urine specimen obtained by clean catch procedure / Unknown Non-blood Collection / Unknown 07/19/2025 5:08 PM EDT 07/19/2025 6:03 PM EDT Bear Hunter MD LAB URINE ORDERABLES Final R esult [facility] [address] [place] [address], [place] [phone] * Buprenorphine screen, urine (07/19/2025 5:08 PM EDT) [facility] Buprenorphine Screen Urine Negative Negative LAB CHEMISTRY METHOD 07/19/2025 6:38 PM EDT [facility] Urine Urine specimen obtained by clean catch procedure / Unknown Non-blood Collection / Unknown 07/19/2025 5:08 PM EDT 07/19/2025 6:03 PM EDT Narrative [facility] - 07/19/2025 6:38 PM EDT Assay cutoff 5 ng/mL Semi-quantitative assay for screening purposes only. Unconfirmed screening result should not be used for non-medical purposes. *ALTERNATE METHOD CONFIRMATION DONE UPON REQUEST ONLY* Bear Hunter MD LAB URINE ORDERABLES Final R esult [facility] [address] [place] [address], * (ABNORMAL) Drug abuse screen 8a panel, urine (07/19/2025 5:08 PM EDT) Amphetamine Screen, Ur Negative Negative LAB CHEMISTRY METHOD 5 6:51 PM EDT [facility] Comment:Certain OTC medicati ons containing ephedrine, phenylephrine, pseudoephedrine and phenylpropanolamine can cause false positive results. Barbiturate Screen, Ur Negative Negative LAB CHEMISTRY METHOD 5 6:51 PM EDT [facility] Benzodiazepine Screen, Ur Negative Negative LAB CHEMISTRY METHOD 5 6:51 PM EDT [facility] Cocaine Screen, Ur Positive(A ) Negative LAB CHEMISTRY METHOD 5 6:51 PM EDT [facility] Opiate Screen, Ur Negative Negative LAB CHEMISTRY METHOD 5 6:51 PM EDT [facility] Cannabinoid (THC) Screen, Ur Positive(A ) Negative LAB CHEMISTRY METHOD 5 6:51 PM T [facility] Comment:Specimens from patie nts taking pantoprazole sodium (Protonix) have been shown to produce false positive results. Oxycodone Screen, Ur Negative Negative LAB CHEMISTRY METHOD 5 6:51 PM EDT [facility] Fentanyl, Ur Positive(A ) Negative LAB CHEMISTRY METHOD 6:51 PM EDT [facility] Urine Urine specimen obtained by clean catch procedure / Unknown Non-blood Collection / Unknown 07/19/2025 5:08 PM EDT 07/19/2025 6:03 PM EDT [facility] - 07/19/2025 6:51 PM EDT Assay cutoffs: Amphetamines 1000 ng/mL Barbiturates 200 ng/mL Benzodiazepines 200 ng/mL Cocaine 300 ng/mL Fentanyl 1 ng/mL Opiates 300 ng/mL Oxycodone 100 ng/mL THC 50 ng/mL Semi-quantitative assay for screening purposes only. Unconfirmed screening result should not be used for non-medical purposes. *ALTERNATE METHOD CONFIRMATION DONE UPON REQUEST ONLY* Bear Hunter MD LAB URINE ORDERABLES Final R esult [facility] [address] [place] [address], [place] [phone] * (ABNORMAL) CBC auto differential (07/19/2025 2:54 PM EDT) WBC 10.6 4.8 - 10.8 K/mcL LAB HEMETOLOGY METHOD 07/19/2025 3:34 PM EDT [facility] RBC 5.10 4.50 - 5.50 M/mcL LAB HEMETOLOGY METHOD 07/19/2025 3:34 PM EDT [facility] Hemoglobin 15.9 13.5 - 17.5 g/dL LAB HEMETOLOGY METHOD 07/19/2025 3:34 PM EDT [facility] Hematocrit 45.2 42.0 - 54.0 % LAB HEMETOLOGY METHOD 07/19/2025 3:34 PM EDT [facility] MCV 88.5 79.0 - 98.0 FL LAB HEMETOLOGY METHOD 07/19/2025 3:34 PM EDT [facility] MCH 31.1 27.0 - 32.0 pcg LAB HEMETOLOGY METHOD 07/19/2025 3:34 PM EDT [facility] MCHC 35.2 32.0 - 37.0 g/dL LAB HEMETOLOGY METHOD 07/19/2025 3:34 PM EDT [facility] RDW 12.3 11.0 - 15.0 % LAB HEMETOLOGY METHOD 07/19/2025 3:34 PM EDT [facility] Platelets 251 130 - 400 K/mcL LAB HEMETOLOGY METHOD 07/19/2025 3:34 PM EDT [facility] MPV 10.0 7.0 - 11.0 FL LAB [facility]EMETOLOGY [facility]19[facility] NRBC 0.0 <1.0 % LAB HEMETOLOGY METHOD 07/19/2025 3:34 PM EDT [facility] NRBC Absolute 0.00 <0.10 K/mcL LAB HEMETOLOGY [facility] 07/19[facility]2025 3[facility] Neutrophils Relative 68.3 % LAB HEMETOLOGY METHOD 07/19/2025 3:34 PM T [facility] Lymphocytes Relative 21.5 % LAB HEMETOLOGY METHOD 07/19/2025 3:34 PM EDT [facility] Monocytes Relative 7.3 % LAB HEMETOLOGY METHOD 07/19/2025 3:34 PM EDT [facility] Eosinophils Relative 1.9 % LAB HEMETOLOGY METHOD 07/19/2025 3:34 PM EDT [facility] Basophils Relative 0.5 % LAB HEMETOLOGY METHOD 07/19/2025 3:34 PM EDT [facility] Immature Granulocytes Relative 0.5 % LAB HEMETOLOGY METHOD 07/19/2025 3:34 PM EDT [facility] Neutrophils Absolute 7.23(H) 1.50 - 7.00 K/mcL LAB HEMETOLOGY METHOD 07/19/2025 3:34 PM EDT [facility] Lymphocytes Absolute 2.27 1.00 - 5.00 K/mcL LAB HEMETOLOGY METHOD 07/19/2025 3:34 PM EDT [facility] Monocytes Absolute 0.77 0.20 - 1.00 K/[facility] HEMETOLOGY METHOD 07/19/2025 3:34 PM EDT [facility] Eosinophils Absolute 0.20 0.00 - 0.50 K/[facility] HEMETOLOGY METHOD 07/19/2025 3:34 PM EDT [facility] Basophils Absolute 0.05 0.00 - 0.20 K/mcL LAB HEMETOLOGY METHOD 07/19/2025 3:34 PM EDT [facility] Immature Granulocytes Absolute 0.05(H) 0.00 - 0.03 K/[facility] HEMETOLOGY METHOD 07/19/2025 3:34 PM EDT [facility] Blood Venous blood specimen / Unknown Venipuncture / Unknown 07/19/2025 2:54 PM EDT 07/19/2025 3:20 PM EDT Bear Hunter MD LAB BLOOD ORDERABLES Final R esult [facility] [address] [place] [address], * (ABNORMAL) Salicylate level (07/19/2025 2:54 PM EDT) Salicylate Level <1.7(L) 2.0 - 29.0 mg/dL LAB CHEMISTRY METHOD 07/19/2025 3:49 PM EDT [facility] Blood Venous blood specimen / Unknown Venipuncture / Unknown 07/19/2025 2:54 PM EDT 07/19/2025 3:20 PM EDT us Bear Hunter MD LAB BLOOD ORDERABLES Final R esult Performing Organization Address City/[facility]/ZIP Co de Phone Number [facility] [address] [place] [address], [place] [phone] * (ABNORMAL) Acetaminophen level (07/19/2025 2:54 PM EDT) Acetaminophen Level <2.0(L) 10.0 - 30.0 mcg/mL LAB CHEMISTRY METHOD 07/19/2025 3:49 PM EDT [facility] Blood Venous blood specimen / Unknown Venipuncture / Unknown 07/19/2025 2:54 PM EDT 07/19/2025 3:20 PM EDT us Bear Hunter MD LAB BLOOD ORDERABLES Final R esult Performing Organization Address [facility] Co de Phone Number [facility] [address] [place] [address], [place] [phone] * Ethanol (07/19/2025 2:54 PM EDT) Ethanol Level 4 0 - 10 mg/dL LAB CHEMISTRY METHOD 07/19/2025 3:49 PM EDT [facility] Blood Venous blood specimen / Unknown Venipuncture / Unknown 07/19/2025 2:54 PM EDT 07/19/2025 3:20 PM EDT us Bear Hunter MD LAB BLOOD ORDERABLES Final R esult Performing Organization Address City/[facility]/ZIP Co de Phone Number [facility] [address] [place] [address], [place] [phone] * (ABNORMAL) Comprehensive metabolic panel (07/19/2025 2:54 PM EDT) [facility] Signature Sodium 140 133 - 145 mmol/L LAB CHEMISTRY METHOD 07/19/2025 3:49 PM [facility] Potassium 4.2 3.5 - 5.5 mmol/L LAB CHEMISTRY METHOD 07/19/2025 3:49 PM [facility] Chloride 104 96 - 110 mmol/L LAB CHEMISTRY METHOD 07/19/2025 3:49 PM [facility] CO2 29 21 - 32 mmol/L LAB CHEMISTRY METHOD 07/19/2025 3:49 PM [facility] Anion Gap 7 3 - 11 LAB CHEMISTRY METHOD 07/19/2025 3:49 PM [facility] Glucose 88 70 - 100 mg/dL LAB CHEMISTRY METHOD 07/19/2025 3:49 PM [facility] BUN 10 5 - 25 mg/dL LAB CHEMISTRY METHOD 07/19/2025 3:49 PM [facility] Creatinine 0.96 0.70 - 1.30 mg/dL LAB CHEMISTRY METHOD 07/19/2025 3:49 PM [facility] eGFR 106 >=60 mL/min/1. 73m2 LAB CHEMISTRY METHOD 07/19/2025 3:49 PM [facility] Comment:Calculation based on the Chronic Kidney Disease Epidemiology Collaboration (CKD-EPI) equation refit without adjustment for race. BUN/Creatinine Ratio 10.4 LAB CHEMISTRY METHOD 07/19/2025 3:49 PM [facility] Calcium 9.2 8.5 - 10.5 mg/dL LAB CHEMISTRY METHOD 07/19/2025 3:49 PM [facility] AST (SGOT) 23 10 - 42 unit/L LAB CHEMISTRY METHOD 07/19/2025 3:49 PM [facility] ALT (SGPT) 66(H) 10 - 60 unit/L LAB CHEMISTRY METHOD 07/19/2025 3:49 PM EDT [facility] Alkaline Phosphatase 70 42 - 121 unit/L LAB CHEMISTRY METHOD 07/19/2025 3:49 PM EDT [facility] Total Protein 6.8 6.0 - 8.0 g/dL LAB CHEMISTRY METHOD 07/19/2025 3:49 PM EDT [facility] Albumin 3.9 3.2 - 5.0 g/dL LAB CHEMISTRY METHOD 07/19/2025 3:49 PM EDT [facility] Total Bilirubin 0.5 0.0 - 1.4 mg/dL LAB CHEMISTRY METHOD 07/19/2025 3:49 PM EDT [facility] Blood Venous blood specimen / Unknown Venipuncture / Unknown 07/19/2025 2:54 PM EDT 07/19/2025 3:20 PM EDT Bear Hunter MD LAB BLOOD ORDERABLES Final R esult [facility] [address] [place] [address], [place] [phone] documented in this encounter Visit Diagnoses Diagnosis Depression with suicidal ideation- Primary Homicidal ideation documented in this encounter Administered Medications Inactive Administered Medications - up to 3 most recent administrations Medication Order MAR Action Action Date Dose Rate Site divalproex (DEPAKOTE) DR tablet 500 mg 500 mg, oral, Every 12 hours scheduled, First dose on Sat07/19/25 at 2315, Hazardous Medication Intact: - Single pair of ASTM standard [id number] certified gloves - Eye/face protection if vomit or potential to spit up - Do NOT split, crush, or open dosage units Given 07/21/2025 10:50 AM EDT 500 mg Given 07/20/2025 8:38 AM EDT 500 mg Given 07/19/2025 11:39 PM EDT 500 mg haloperidol lactate (HALDOL) 5 mg/mL injection - ADS Override Pull Starting on Sat07/19/25 at 1352, For 1 dose, Created by cabinet override May be ordered via either intramuscular or intravenous route. If ordered IV, maximum of 5 mg/minute. haloperidol lactate (HALDOL) injection 5 mg 5 mg, intramuscular, Once, On Sat07/19/25 at 1355, For 1 dose, May be ordered via either intramuscular or intravenous route. If ordered IV, maximum of 5 mg/minute. Given 07/19/2025 1:56 PM EDT 5 mg Right Deltoid haloperidol lactate (HALDOL) injection 5 mg 5 mg, intramuscular, Once, On Sat07/20/25 at 2004, For 1 dose, May be ordered via either intramuscular or intravenous route. If ordered IV, maximum of 5 mg/minute. Given 07/20/2025 8:14 PM EDT 5 mg Right Deltoid levothyroxine (SYNTHROID, LEVOTHROID) tablet 75 mcg 75 mcg, oral, Every morning before breakfast, First dose on Sat07/20/25 at 0700, ORAL ROUTE: take on an empty stomach and separate from other medications. ENTERAL TUBE ROUTE: If newly initiated enteral nutrition duration is over 5 days, hold enteral nutrition 1 hour before and after drug administration, per ASPEN guidelines. Given 07/21/2025 10:50 AM EDT 75 mcg Given 07/20/2025 7:02 AM EDT 75 mcg LORazepam (ATIVAN) 2 mg/mL injection - ADS Override Pull Starting on Sat07/19/25 at 1353, For 1 dose, Created by cabinet override Prior to IV use, lorazepam injection should be DILUTED with an equal volume of compatible solution; Rate of administration should NOT exceed 2 mg/min. LORazepam (ATIVAN) injection 2 mg 2 mg, intramuscular, Once, On Sat07/19/25 at 1417, For 1 dose, Prior to IV use, lorazepam injection should be DILUTED with an equal volume of compatible solution; Rate of administration should NOT exceed 2 mg/min. Given 07/19/2025 1:56 PM EDT 2 mg Right Deltoid LORazepam (ATIVAN) injection 2 mg 2 mg, intramuscular, Once, On Sat07/20/25 at 2014, For 1 dose, Prior to IV use, lorazepam injection should be DILUTED with an equal volume of compatible solution; Rate of administration should NOT exceed 2 mg/min. Given 07/20/2025 8:13 PM EDT 2 mg Right Deltoid OLANZapine (ZyPREXA ZYDIS) disintegrating tablet 15 mg 15 mg, oral, Nightly, First dose on Sat07/19/25 at 2314, Tablets should NOT be swallowed whole, chewed, broken, or crushed. Place tablet in mouth, allow to dissolve, and then swallow saliva with or without water. Given 07/19/2025 11:39 PM EDT 15 mg documented in this encounter Active and Recently Administered Medications Times are shown in EDT. Scheduled Medication Order 07/19/2025 07/20/2025 07/21/2025 divalproex (DEPAKOTE) DR tablet 500 mg 500 mg, oral, Every 12 hours scheduled, First dose on Sat07/19/25 at 2315, Hazardous Medication Intact: - Single pair of ASTM standard [id number] certified gloves - Eye/face protection if vomit or potential to spit up - Do NOT split, crush, or open dosage units 2339 (Given - Provider: Noris Fulton, JORGE LUIS) 0838 (Given - Provider: Tiffanie Clarke, JORGE LUIS)2014 (Not Given - Provider: Seda Mendoza RN - Reason: Other - Comment: Pt given haldol/Ativan IM) 1050 (Given - Provider: Kyle Will, JORGE LUIS) haloperidol lactate (HALDOL) injection 5 mg (COMPLETED) 5 mg, intramuscular, Once, On Sat07/19/25 at 1355, For 1 dose, May be ordered via either intramuscular or intravenous route. If ordered IV, maximum of 5 mg/minute. 1356 (Given - Provider: Antonella Bhakta, JORGE LUIS) haloperidol lactate (HALDOL) injection 5 mg (COMPLETED) 5 mg, intramuscular, Once, On Sat07/20/25 at 2004, For 1 dose, May be ordered via either intramuscular or intravenous route. If ordered IV, maximum of 5 mg/minute. 2013 (Given - Provider: Seda Mendoza, JORGE LUIS) levothyroxine (SYNTHROID, LEVOTHROID) tablet 75 mcg 75 mcg, oral, Every morning before breakfast, First dose on Sat07/20/25 at 0700, ORAL ROUTE: take on an empty stomach and separate from other medications. ENTERAL TUBE ROUTE: If newly initiated enteral nutrition duration is over 5 days, hold enteral nutrition 1 hour before and after drug administration, per ASPEN guidelines. 0702 (Given - Provider: Tiffanie Clarke, RN) 1050 (Given - Provider: Kyle Will, JORGE LUIS) LORazepam (ATIVAN) injection 2 mg (COMPLETED) 2 mg, intramuscular, Once, On Sat07/19/25 at 1417, For 1 dose, Prior to IV use, lorazepam injection should be DILUTED with an equal volume of compatible solution; Rate of administration should NOT exceed 2 mg/min. 1356 (Given - Provider: Antonella Bhakta RN) LORazepam (ATIVAN) injection 2 mg (COMPLETED) 2 mg, intramuscular, Once, On Sat07/20/25 at 2014, For 1 dose, Prior to IV use, lorazepam injection should be DILUTED with an equal volume of compatible solution; Rate of administration should NOT exceed 2 mg/min. 2013 (Given - Provider: Seda Mendoza RN) OLANZapine (ZyPREXA ZYDIS) disintegrating tablet 15 mg (CANCELED) 15 mg, oral, Nightly, First dose on Sat07/19/25 at 2314, Tablets should NOT be swallowed whole, chewed, broken, or crushed. Place tablet in mouth, allow to dissolve, and then swallow saliva with or without water. 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
[2025-07-21 14:14] VITALS: BMI 27.7
[2025-07-21 14:17] VITALS: BP 128/72; PULSE 81; RESP 18; TEMP 36.7; O2SAT 97
--- NOTE | 2025-07-21 14:35 | HO.PM.IMCN ---
History of Present Illness Data of Consult Service Date: 07/21/25 Primary Care Provider: Unknown Physician HPI Reason for consult: Medical consult 34-year-old with a past medical history of schizoaffective disorder, HLD, hypothyroidism, antisocial personality disorder, cocaine and tobacco use disorder, cannabis dependence hyperlipidemia and bipolar disorder presented to [facility] via EMS with suicidal ideation. In the ED he was aggressive, spitting at nurses, and had threatening behavior. He was also aggressive towards staff at his jail. He received chemical sedation. He accepted labs and they were within normal limits. Drug screen was positive for cocaine cannabinoids and fentanyl, CBC within normal limits, PCP negative, ALT was mildly elevated. Patient stopped taking his medications. He was evaluated by crisis team and referred for inpatient level of care. When approached on the unit, patient denied any medical concerns and declined any physical exam. Review of Systems Review of Systems: Unobtainable due to patient's cooperation [facility] Medical History Hallucination, visual Substance abuse Violent behavior Schizoaffective disorder Social History Household Members: Family Household Members Other:: Patient resides at a jail with 24 hours a day staff available Housing: House Housing Other:: halfway Do you presently have visiting nurse or other home services: No Alcohol intake: current Alcohol intake frequency: does not drink Patient Tobacco Use Status: Never used Tobacco Tobacco use type: Cigarette Cigarettes Per Day: 3 Years Smoked: unsure e-Cigarette/Vaping Use: Never Used Second Hand Smoke Exposure: No Substance Use Type: Crack/Cocaine Advance Directives: No Advance Directives Information Provided: No service: No Sexual orientation: Straight/Heterosexual Meds Allergies Allergy/AdvReac Type Severity Reaction Status Date / Time quetiapine (From SEROQUEL) Allergy Severe ANAPHYLAXIS Verified 07/15/25 19:19 haloperidol (HALOPERIDOL) Allergy Intermediate SWELLING Verified 07/15/25 19:19 trazodone Allergy Unknown Verified 07/15/25 19:19 Active Medications: Current Medications Acetaminophen (Acetaminophen 325 Mg Tablet) 650 mg PO Q6H PRN PRN Reason: Headache/Pain, Scale 1-10 Al Hydroxide/Mg Hydroxide (Magnesium Hydrox/Alum Hydrox 30 Ml Oral.Susp) 30 ml PO Q6H PRN PRN Reason: Heartburn/Nausea Hydroxyzine HCl (Hydroxyzine Hcl 25 Mg Tablet) 25 mg PO Q6H PRN PRN Reason: mild anxiety Magnesium Hydroxide (Milk Of Magnesia 30 Ml Oral.Susp) 30 ml PO DAILY PRN PRN Reason: Constipation Nicotine Polacrilex (Nicotine Polacrilex 2 Mg Gum) 4 mg BUCCAL Q2H PRN PRN Reason: Nicotine Cravings Last Admin: 07/21/25 14:32 Dose: 4 mg Home Medications ?Medication ?Instructions ?Recorded ?Confirmed ?Last Taken ?Type atorvastatin 10 mg tablet 10 mg PO BEDTIME 12/17/24 07/15/25 07/06/25 History levothyroxine 75 mcg tablet 75 mcg PO DAILY@0600 disorder of 12/25/24 07/15/25 07/07/25 History thyroid gland olanzapine 15 mg tablet 30 mg PO BEDTIME 01/12/25 07/15/25 07/06/25 History divalproex 500 mg tablet,delayed 1,500 mg PO BEDTIME 01/14/25 07/15/25 07/06/25 History release lithium carbonate 450 mg 900 mg PO BEDTIME 01/14/25 07/15/25 07/06/25 History tablet,extended release pantoprazole 40 mg tablet,delayed 40 mg PO DAILY 07/15/25 07/15/25 Unknown History release risperidone 4 mg tablet 4 mg PO BEDTIME 07/15/25 07/15/25 Unknown History Physical Exam Vital Signs and Narrative: Vital Signs: Last Vital Signs Temp 98.1 F 07/21/25 14:17 Pulse 81 07/21/25 14:17 BP 128/72 07/21/25 14:17 Pulse Ox 97 07/21/25 14:17 BMI result Body Mass Index 27.7 CONST: Alert and oriented, in NAD. Well nourished HEENT: Normocephalic, atraumatic, MMM RESP:RRR even and regular HEART: Declined GI: Declined :Deferred SKIN: Warm dry and intact, no visible lesions or rashes NEURO: Moves all extremities, Speech clear PSYCH: Uncooperative Assessment and Plan (1) Schizoaffective disorder: Qualifiers: Schizoaffective disorder type: unspecified Qualified Code(s): F25.9 - Schizoaffective disorder, unspecified Status: Acute Plan 34-year-old male with past medical history of schizoaffective disorder, bipolar disorder, antisocial personality disorder, EtOH and cocaine use presented to the ED at [facility] with auditory hallucinations. He is transferred here for inpatient psychiatric care. Schizoaffective disorder/bipolar disorder/antisocial personality disorder/EtOH/Cocaine use Plan per psychiatric team Medical evaluation was limited due to patient's cooperation. Please reconsult if any medical concerns arise Thank you for allowing me to participate in the care of this patient.
--- OUTSIDE RECORDS SUMMARY | 2025-07-21 17:52 | XMS_ITS | Clinical Summary ---
Author Organization [facility] Address [address] [place] [address] Phone Care Team Providers Care Vision Care Associate Name Role Phone Sreekanth Hurtado MD Primary Care Provider [phone] Allergies Active Allergy Reactions Criticality Noted Date Comments Clozapine Neutropenia Medium 09/30/2024 Droperidol 11/17/2024 ?acute dystonic reaction Haloperidol Unknown 09/30/2024 many years ago...they had to give me Benadryl and I had to sit upright by a window Pork Derived (Porcine) 07/20/2025 Pt states he doesn't eat pork Quetiapine Unknown 09/30/2024 Trazodone Unknown 09/30/2024 Mentioned in pt's med list from senior care Medications atorvastatin (LIPITOR) 10 mg tablet Take [...] Encounters Date Type Department Care Team Description 07/19/2025 1:08 PM EDT - 07/21/2025 1:[address] [facility] Emergency [address] [place] [phone] Kevin Polanco MD Grabowski, Walter, MD Killelea, Alison G, MD Amardey-Wellingto n, Aaron, MD Kokkinos, Erika, MD Wyman, Tim, MD Depression with suicidal ideation (Primary Dx); Homicidal ideation Discharge Disposition: Another Health Care Institution Not Defined 06/30/2025 4:20 PM EDT - 07/01/2025 7:13 PM EDT Emergency [facility] Emergency [address] [place] [phone] Michael Jefferson MD Reid, Oswald George, MD Touriel, Ross, MD Hallucinations (Primary Dx) Discharge Disposition: Psychiatric Hospital 06/29/2025 8:34 PM EDT - 06/29/2025 10:14 PM EDT Emergency [facility] Emergency [address] [place] [phone] Caleb Benavidez MD Other schizoaffective disorders (CMS/HCC V24, CMS/HCC V28) (Primary Dx) Discharge Disposition: Home or Self Care 06/29/2025 6:54 PM EDT - 06/29/2025 8:[address] [facility] Emergency [address] [place] [phone] Caleb Benavidez MD Adverse effect of drug, initial encounter (Primary Dx); Hallucinations Discharge Disposition: Home or Self Care 06/18/2025 1:35 AM EDT - 06/18/2025 6:[address] [facility] Emergency [address] [place] [phone] Angel Sequeira MD Schizoaffective disorder, unspecified type ([facility] V24, [facility] V28) (Primary Dx) Discharge Disposition: Home or Self Care 05/26/2025 7:48 PM EDT - 05/26/2025 11:[address] [facility] Emergency [address] [place] [phone] Benjie Coleman MD Anxiety (Primary Dx) Discharge Disposition: Home or Self Care 04/24/2025 6:00 PM EDT - 04/24/2025 8:[address] [facility] Emergency [address] [place] [phone] Nikolay Mueller MD Notash, Mark, MD Schizoaffective disorder, unspecified type ([facility] V24, [facility] V28) (Primary Dx); Anxiety Discharge Disposition: Home or Self Care 04/21/2025 10:14 PM EDT - 04/22/2025 9:[address] [facility] Emergency [address] [place] [phone] Joseph Ramos MD Ziebro, John, MD Delusional disorder ([facility] V24, [facility] V28) (Primary Dx) Discharge Disposition: Home or Self Care from Last 3 Months Medical History Medical History Date Comments Disease of thyroid gland Bipolar 1 disorder ([facility] V24, [facility] V28) Schizo affective schizophrenia ([facility] V24, [facility] V28) Bipolar 1 disorder ([facility] V24, [facility] V28) Anxiety Anxiety Social History [...] Mass Index 25.8 07/19/2025 1:17 PM EDT Plan of Treatment Health Maintenance Due Date Last Done Comments DTaP,Tdap,and Td Vaccines (1 - Tdap) 2008 Hepatitis B Vaccines (1 of 3 - 19+ 3-dose series) 2008 Pneumococcal Vaccine: Pediat rics (0 to 5 Years) and At-Risk Patients (6 to 49 Years) (1 of 2 - PCV) 2008 HPV Vaccines (1 - 3-dose SCD M series) 2016 Cholesterol Screening (Lipid Panel) 09/09/2022 HIV Screening 09/09/2022 Hepatitis C Screening 09/09/2022 Medicare Annual Wellness Visit 09/09/2022 Social Influencers of Health Screening 09/09/2022 Depression Screening 10/07/2024 COVID-19 Vaccine (2023-2 5 season) 2025 Influenza Vaccine (#1) 2025 RSV Immunization Adult Patie nts (1 - 1-dose 75+ series) 2064 HIB Vaccines Aged Out No longer eligi [...] Associated Diagnosis Comments METHADONE SCREEN, URINE STAT 07/19/2025 5:08 PM EDT PHENCYCLIDINE, URINE STAT 07/19/2025 5:08 PM EDT BUPRENORPHINE SCREEN, URINE STAT 07/19/2025 5:08 PM EDT DRUG ABUSE SCREEN 8A PANEL, URINE STAT 07/19/2025 5:08 PM EDT CBC WITH AUTO DIFFERENTIAL STAT 07/19/2025 2:54 PM EDT SALICYLATE LEVEL STAT 07/19/2025 2:54 PM EDT ACETAMINOPHEN LEVEL STAT 07/19/2025 2 :54 PM EDT ETHANOL STAT 07/19/2025 2:54 PM EDT COMPREHENSIVE METABOLIC PANEL STAT 07/19/2025 2:54 PM EDT CBC AND DIFFERENTIAL STAT 07/19/2025 2:54 PM EDT CBC WITH AUTO DIFFERENTIAL STAT 07/01/2025 11:02 AM EDT ETHANOL STAT 07/01/2025 11:02 AM EDT ACETAMINOPHEN LEVEL Timed 07/01/2025 1 1:02 AM EDT SALICYLATE LEVEL STAT 07/01/2025 11:0 2 AM EDT LIPASE STAT 07/01/2025 11:02 AM EDT COMPREHENSIVE METABOLIC PANEL STAT 07/01/2025 11:02 AM EDT CBC AND DIFFERENTIAL STAT 07/01/2025 11:02 AM EDT METHADONE SCREEN, URINE STAT 05/26/2025 8:18 PM [...] 8a panel, urine (07/19/2025 5:08 PM EDT) Only the most recent of2 resultswithin the time period is included. Amphetamine Screen, Ur Negative Negative LAB CHEMISTRY METHOD 5 6:51 PM EDT [facility] Comment:Certain OTC medicati ons containing ephedrine, phenylephrine, pseudoephedrine and phenylpropanolamine can cause false positive results. Barbiturate Screen, Ur Negative Negative LAB CHEMISTRY METHOD 5 6:51 PM EDT [facility] Benzodiazepine Screen, Ur Negative Negative LAB CHEMISTRY METHOD 5 6:51 PM EDT [facility] Cocaine Screen, Ur Positive(A ) Negative LAB CHEMISTRY METHOD 5 6:51 PM [facility] Opiate Screen, Ur Negative Negative LAB CHEMISTRY METHOD 6:51 PM [facility] Cannabinoid (THC) Screen, Ur Positive(A ) Negative LAB CHEMISTRY METHOD 5 6:51 PM T [facility] Comment:Specimens from patie nts taking pantoprazole sodium (Protonix) have been shown to produce false positive results. Oxycodone Screen, Ur Negative Negative LAB CHEMISTRY METHOD 5 6:51 PM EDT [facility] Fentanyl, Ur Positive(A ) Negative LAB CHEMISTRY METHOD 5 6:51 PM [facility] Urine Urine specimen obtained by clean catch procedure / Unknown Non-blood Collection / Unknown 07/19/2025 5:08 PM EDT 07/19/2025 6:03 PM EDT [facility] - 07/19/2025 6:51 PM EDT Assay [...] MD LAB URINE ORDERABLES Final R esult Performing Organization Address City/[facility] Co de Phone Number [facility] [address] [place] [address], * Buprenorphine screen, urine (07/19/2025 5:08 PM EDT) Only the most recent of2 resultswithin the time period is included. [facility] Buprenorphine Screen Urine Negative Negative LAB CHEMISTRY METHOD 07/19/2025 6:38 PM EDT [facility] Urine Urine specimen obtained by clean catch procedure / Unknown Non-blood Collection / Unknown 07/19/2025 5:08 PM EDT 07/19/2025 6:03 PM EDT Narrative [facility] - 07/19/2025 6:38 PM EDT Assay cutoff 5 ng/mL Semi-quantitative assay for screening purposes only. Unconfirmed screening result should not be used for non-medical purposes. *ALTERNATE METHOD CONFIRMATION DONE UPON REQUEST ONLY* Bear Hunter MD LAB URINE ORDERABLES Final R esult Performing Organization Address [facility] de Phone Number [facility] [address] [place] [address], [place] [phone] * Methadone, urine (07/19/2025 5:08 PM EDT) Only the most recent of2 resultswithin the time period is included. Pathologist [facility] Methadone Screen, Urine Negative Negative LAB CHEMISTRY METHOD 07/19/2025 6:47 PM EDT [facility] Comment: Assay cutoff 300 ng/mL Semi-quantitative assay for screening purposes only. Unconfirmed screening result should not be used for non-medical purposes. *ALTERNATE METHOD CONFIRMATION DONE UPON REQUEST ONLY* Urine Urine specimen obtained by clean catch procedure / Unknown Non-blood Collection / Unknown 07/19/2025 5:08 PM EDT 07/19/2025 6:03 PM EDT Bear Hunter MD LAB URINE ORDERABLES Final R esult [facility] [address] [place] [address], [place] [phone] * Phencyclidine, urine (07/19/2025 5:08 PM EDT) Only the most recent of2 resultswithin the time period is included. PCP Scrn, Ur Negative Negative LAB CHEMISTRY METHOD 07/19/2025 6:47 PM EDT [facility] Comment: Assay cutoff 25 ng/mL Semi-quantitative assay for screening purposes only. Unconfirmed screening result should not be used for non-medical purposes. *ALTERNATE METHOD CONFIRMATION DONE UPON REQUEST ONLY* Urine Urine specimen obtained by clean catch procedure / Unknown Non-blood Collection / Unknown 07/19/2025 5:08 PM EDT 07/19/2025 6:03 PM EDT Bear Hunter MD LAB URINE ORDERABLES Final R esult [facility] [address] [place] [address], [place] [phone] * (ABNORMAL) CBC auto differential (07/19/2025 2:54 PM EDT) Only the most recent of3 resultswithin the time period is included. WBC 10.6 4.8 - 10.8 K/[facility] LAB HEMETOLOGY METHOD 07/19/2025 3:34 PM EDT [facility] RBC 5.10 4.50 - 5.50 M/[facility] LAB HEMETOLOGY METHOD 07/19/2025 3:34 PM [facility] Hemoglobin 15.9 13.5 - 17.5 g/dL LAB HEMETOLOGY METHOD 07/19/2025 3:34 PM [facility] Hematocrit 45.2 42.0 - 54.0 % LAB HEMETOLOGY METHOD 07/19/2025 3:34 PM [facility] MCV 88.5 79.0 - 98.0 FL LAB HEMETOLOGY METHOD 07/19/2025 3:34 PM [facility] MCH 31.1 27.0 - 32.0 pcg LAB HEMETOLOGY METHOD 07/19/2025 3:34 PM [facility] MCHC 35.2 32.0 - 37.0 g/dL LAB HEMETOLOGY METHOD 07/19/2025 3:34 PM [facility] RDW 12.3 11.0 - 15.0 % LAB HEMETOLOGY METHOD 07/19/2025 3:34 PM [facility] Platelets 251 130 - 400 K/mcL LAB HEMETOLOGY METHOD 07/19/2025 3:34 PM [facility] MPV 10.0 7.0 - 11.0 FL LAB HEMETOLOGY METHOD 07/19/2025 3:34 PM [facility] NRBC 0.0 <1.0 % LAB HEMETOLOGY METHOD 07/19/2025 3:34 PM [facility] NRBC Absolute 0.00 <0.10 K/mcL LAB HEMETOLOGY METHOD 07/19/2025 3:34 PM [facility] Neutrophils Relative 68.3 % LAB HEMETOLOGY METHOD 07/19/2025 3:34 PM [facility] Lymphocytes Relative 21.5 % LAB HEMETOLOGY METHOD 07/19/2025 3:34 PM [facility] Monocytes Relative 7.3 % LAB HEMETOLOGY METHOD 07/19/2025 3:34 PM EDT [facility] Eosinophils Relative 1.9 % LAB HEMETOLOGY METHOD 07/19/2025 3:34 PM EDT [facility] Basophils Relative 0.5 % LAB HEMETOLOGY METHOD 07/19/2025 3:34 PM EDT [facility] Immature Granulocytes Relative 0.5 % LAB HEMETOLOGY METHOD 07/19/2025 3:34 PM EDT [facility] Neutrophils Absolute 7.23(H) 1.50 - 7.00 K/mcL LAB HEMETOLOGY METHOD 07/19/2025 3:34 PM EDT [facility] Lymphocytes Absolute 2.27 1.00 - 5.00 K/mcL LAB HEMETOLOGY METHOD 07/19/2025 3:34 PM EDT [facility] Monocytes Absolute 0.77 0.20 - 1.00 K/mcL LAB HEMETOLOGY METHOD 07/19/2025 3:34 PM EDT [facility] Eosinophils Absolute 0.20 0.00 - 0.50 K/mcL LAB HEMETOLOGY METHOD 07/19/2025 3:34 PM EDT [facility] Basophils Absolute 0.05 0.00 - 0.20 K/mcL LAB HEMETOLOGY METHOD 07/19/2025 3:34 PM EDT [facility] Immature Granulocytes Absolute 0.05(H) 0.00 - 0.03 K/mcL LAB HEMETOLOGY METHOD 07/19/2025 3:34 PM EDT [facility] Blood Venous blood specimen / Unknown Venipuncture / Unknown 07/19/2025 2:54 PM EDT 07/19/2025 3:20 PM EDT us Bear Hunter MD LAB BLOOD ORDERABLES Final R esult [facility] [address] [place] [address], [place] [phone] * Ethanol (07/19/2025 2:54 PM EDT) Only the most recent of3 resultswithin the time period is included. Ethanol Level 4 0 - 10 mg/dL LAB CHEMISTRY METHOD 07/19/2025 3:49 PM EDT [facility] Blood Venous blood specimen / Unknown Venipuncture / Unknown 07/19/2025 2:54 PM EDT 07/19/2025 3:20 PM EDT us Bear Hunter MD LAB BLOOD ORDERABLES Final R esult Performing Organization Address [facility]/ZIP Co de Phone Number [facility] [address] [place] [address], [place] [phone] * (ABNORMAL) Acetaminophen level (07/19/2025 2:54 PM EDT) Only the most recent of3 resultswithin the time period is included. Acetaminophen Level <2.0(L) 10.0 - 30.0 mcg/mL LAB CHEMISTRY METHOD 07/19/2025 3:49 PM EDT [facility] Blood Venous blood specimen / Unknown Venipuncture / Unknown 07/19/2025 2:54 PM EDT 07/19/2025 3:20 PM EDT us Bear Hunter MD LAB BLOOD ORDERABLES Final R esult [facility] [address] [place] [address], [place] [phone] * (ABNORMAL) Salicylate level (07/19/2025 2:54 PM EDT) Only the most recent of3 resultswithin the time period is included. Salicylate Level <1.7(L) 2.0 - 29.0 mg/dL LAB CHEMISTRY METHOD 07/19/2025 3:49 PM [facility] Blood Venous blood specimen / Unknown Venipuncture / Unknown 07/19/2025 2:54 PM EDT 07/19/2025 3:20 PM EDT us Bear Hunter MD LAB BLOOD ORDERABLES Final R esult [facility] [address] [place] [address], * (ABNORMAL) Comprehensive metabolic panel (07/19/2025 2:54 PM EDT) Only the most recent of3 resultswithin the time period is included. Sodium 140 133 - 145 mmol/L LAB CHEMISTRY METHOD 07/19/2025 3:49 PM [facility] Potassium 4.2 3.5 - 5.5 mmol/L LAB CHEMISTRY METHOD 07/19/2025 3:49 PM [facility] Chloride 104 96 - 110 mmol/L LAB CHEMISTRY METHOD 07/19/2025 3:49 PM [facility] CO2 29 21 - 32 mmol/L LAB CHEMISTRY METHOD 07/19/2025 3:49 PM [facility] Anion Gap 7 3 - 11 LAB CHEMISTRY METHOD 07/19/2025 3:49 PM [facility] Glucose 88 70 - 100 mg/dL LAB CHEMISTRY METHOD 07/19/2025 3:49 PM [facility] BUN 10 5 - 25 mg/dL LAB CHEMISTRY METHOD 07/19/2025 3:49 PM [facility] Creatinine 0.96 0.70 - 1.30 mg/dL LAB CHEMISTRY METHOD 07/19/2025 3:49 PM [facility] eGFR 106 >=60 mL/min/1. 73m2 LAB CHEMISTRY METHOD 07/19/2025 3:49 [facility] Comment:Calculation based on the Chronic Kidney Disease Epidemiology Collaboration (CKD-EPI) equation refit without adjustment for race. BUN/Creatinine Ratio 10.4 LAB CHEMISTRY METHOD 07/19/2025 3:49 PM [facility] Calcium 9.2 8.5 - 10.5 mg/dL LAB CHEMISTRY METHOD 07/19/2025 3:49 PM [facility] AST (SGOT) 23 10 - 42 unit/L LAB CHEMISTRY METHOD 07/19/2025 3:49 PM [facility] ALT (SGPT) 66(H) 10 - 60 unit/L LAB CHEMISTRY METHOD 07/19/2025 3:49 PM [facility] Alkaline Phosphatase 70 42 - 121 unit/L LAB CHEMISTRY METHOD 07/19/2025 3:49 PM [facility] Total Protein 6.8 6.0 - 8.0 g/dL LAB CHEMISTRY METHOD 07/19/2025 3:49 PM [facility] Albumin 3.9 3.2 - 5.0 g/dL LAB CHEMISTRY METHOD 07/19/2025 3:49 PM [facility] Total Bilirubin 0.5 0.0 - 1.4 mg/dL LAB CHEMISTRY METHOD 07/19/2025 3:49 PM [facility] Blood Venous blood specimen / Unknown Venipuncture / Unknown 07/19/2025 2:54 PM EDT 07/19/2025 3:20 PM EDT us Bear Hunter MD LAB BLOOD ORDERABLES Final R esult [facility] [address] [place] [address], * Lipase (07/01/2025 11:02 AM EDT) Lipase 33 13 - 75 unit/L LAB CHEMISTRY METHOD 07/01/2025 11:58 AM EDT [facility] Blood Venous blood specimen / Unknown Venipuncture / Unknown 07/01/2025 11:02 AM EDT 07/01/2025 11:27 AM EDT Kevin Polanco MD LAB BLOOD ORDERABLES Final Result [facility] [address] [place] [address], * Drug abuse screen, serum (04/24/2025 6:36 PM EDT) Amphetamine, Serum, Qualitative Negative 04/28/2025 5:43 AM EDT [facility] Barbiturate, Serum, Qualitative Negative 04/28/2025 5:43 [...] developed and the performance characteristics determined by [facility]. This confirmation testing has not been cleared or approved by the FDA. The laboratory is regulated under CLIA as qualified to perform high-complexity testing. This test is used for patient testing purposes. It should not be regarded as investigational or for research. Test performed at [facility], [address] , [place] [address] Komal Melendez MD, PhD - [employer] Blood Venous blood specimen / Unknown Venipuncture / Unknown 04/24/2025 6:36 PM EDT 04/24/2025 6:43 PM EDT Nikolay Mueller MD LAB BLOOD ORDERABLES Final Resul t [facility] [address] [place] [address] * Thyroid stimulating hormone (04/24/2025 6:36 PM EDT) [facility] TSH 1.54 0.40 - 4.00 mcIU/mL LAB CHEMISTRY METHOD 04/24/2025 8:27 PM EDT [facility] Blood Venous blood specimen / Unknown Venipuncture / Unknown 04/24/2025 6:36 PM EDT 04/24/2025 6:43 PM EDT us Nikolay Mueller MD LAB BLOOD ORDERABLES Final Resul t [facility] [address] [place] [address], [place] [phone] from Last 3 Months Insurance MEDICARE MEDICAID - [place] Care Teams Vision Care Associate Relationship Specialty Start Date End Date Sreekanth Hurtado MD [address] PCP - General Psychiatry 01/01/25
--- NOTE | 2025-07-21 19:06 | PC.ADMIT ---
Sean arrived to at approximately 14:15, via ambulance, from [facility] ED. He is a 34yr old male admitted for treatment of schizoaffective disorder & SI. Sean is A&Ox4, quiet, flat & cooperative with the admission process. He is more engaged today, with this board writer, than he has been on bernardo assessments. He signed in a CV & immediately signed a 3 Day Notice. Skin check was unremarkable. Sean endorses AH & anxiety but denies SI at this time. He declined to sign OCHOA?s. Sean resides in a care home. He is well known to [facility] and was discharged from last week after two back to back inpatient stays. He reportedly stopped taking his medications prior to being brought to the ED but Sean neither confirmed, nor denied this report. Sean endorses high anxiety & is upset about his experience at [facility] ED. He was restrained after spitting at and making racial/derogatory statements toward staff. Sean states that he was forced to have bloodwork and UTOX done at [facility] and he is very upset about this. He alleges that he was told that he couldn?t leave if he didn?t have the tests. Patient was reoriented to our unit, shown to his room & placed on 15min safety checks. Sean contracts for safety at this time.
[2025-07-22 07:00] VITALS: BMI 25.9
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
[2025-07-22 20:00] VITALS: RESP 16
--- NOTE | 2025-07-23 18:36 | P.PNPSI_ITS ---
Subjective Subjective Date of Service: 07/23/25 Reason For Visit: Schizoaffective d/o, antisocial personality Interim History: Met with patient; discussed with team Patient lying in bed, awake, says I am tried to sleep; denies any AVH. Just wants to return to residential Mental Status Exam Mental Status Exam Narrative: Pt is alert and oriented; behavior is guarded, calm, isolative; patient is not in distress; dressed in hospital attire; bald, bearded, adequate hygiene; mood is described as i'm trying to sleep and eye contact minimal; Speech is normal rate, volume and prosody and not pressured; some psychomotor retardation present; thought process is organized and goal directed but concrete; Thought content is on discharge; other thoughts not disclosed; no overt expressions of paranoid ideations; denies any SI/HI. Denies AVH Patients insight and judgment impaired, but likely at baseline and adequate Diagnostics Vital Signs (24Hr): Vital Signs - 24 hr 07/22/25 20:00 Respiratory Rate 16 BMI result Body Mass Index 25.9 Medications Medications Current Medications Acetaminophen (Acetaminophen 325 Mg Tablet) 650 mg PO Q6H PRN PRN Reason: Headache/Pain, Scale 1-10 Al Hydroxide/Mg Hydroxide (Magnesium Hydrox/Alum Hydrox 30 Ml Oral.Susp) 30 ml PO Q6H PRN PRN Reason: Heartburn/Nausea Atorvastatin Calcium (Atorvastatin Calcium 10 Mg Tablet) 10 mg PO BEDTIME [facility] Last Admin: 07/22/25 21:33 Dose: 10 mg Chlorpromazine HCl (Chlorpromazine Hcl 25 Mg Tablet) 50 mg PO TID PRN PRN Reason: agitation/psychosis Clonidine HCl (Clonidine Hcl 0.1 Mg Tablet) 0.1 mg PO BID@0900,1300 [facility]; Protocol Last Admin: 07/23/25 13:40 Dose: Not Given Divalproex Sodium (Divalproex Sodium 500 Mg Tablet.) 1,500 mg PO BEDTIME [facility] Last Admin: 07/22/25 21:32 Dose: 1,500 mg Hydroxyzine HCl (Hydroxyzine Hcl 25 Mg Tablet) 25 mg PO Q6H PRN PRN Reason: mild anxiety Levothyroxine Sodium (Levothyroxine Sodium 75 Mcg Tablet) 75 mcg PO DAILY@0600 [facility] Last Admin: 07/23/25 06:22 Dose: Not Given [place] Carbonate ([place] Carbonate Er 450 Mg Tablet.Er) 900 mg PO BEDTIME [facility] Last Admin: 07/22/25 21:33 Dose: 900 mg Magnesium Hydroxide (Milk Of Magnesia 30 Ml Oral.Susp) 30 ml PO DAILY PRN PRN Reason: Constipation Nicotine Polacrilex (Nicotine Polacrilex 2 Mg Gum) 4 mg BUCCAL Q2H PRN PRN Reason: Nicotine Cravings Last Admin: 07/22/25 21:33 Dose: 4 mg Olanzapine (Olanzapine 10 Mg Tablet) 30 mg PO BEDTIME [facility] Last Admin: 07/22/25 21:32 Dose: 30 mg Allergies Allergies Allergy/AdvReac Type Severity Reaction Status Date / Time quetiapine (From SEROQUEL) Allergy Severe ANAPHYLAXIS Verified 07/15/25 19:19 haloperidol (HALOPERIDOL) Allergy Intermediate SWELLING Verified 07/15/25 19:19 trazodone Allergy Unknown Verified 07/15/25 19:19 Assessment & Plan Assessment & Plan (1) Schizoaffective disorder: Qualifiers: Schizoaffective disorder type: unspecified Qualified Code(s): F25.9 - Schizoaffective disorder, unspecified Status: Acute Code(s): F25.9 - Schizoaffective disorder, unspecified (2) Antisocial personality disorder: Status: Acute Code(s): F60.2 - Antisocial personality disorder (3) Cocaine use disorder: Status: Acute Code(s): F14.10 - Cocaine abuse, uncomplicated Plan HPI: Patient is a 34-year-old male with history of schizoaffective disorder, bipolar type and cocaine use disorder, who presents for dysregulated behavior in the community following medication non adherence and crack cocaine use; UDS AH positive for cocaine and fentanyl. Patient reports that he used cocaine, a rare admission for patient. He says he was unable to sleep so went to the hospital. At the hospital he wanted to leave but was not allowed to; collateral reports that patient made verbal threats to staff and spit at staff; he was forced to give blood work and sent for this admission. Patient endorses AH however he is guarded about other aspects of his symptoms and just says he wants to discharge. Currently denies SI Formulation/clinical reasoning: Patient with similar presentation to past admissions. He acknowledges AH but will not discuss other symptoms. UDS positive for cocaine which has been always suspected, sometimes confirmed and which seems to be the consistent trigger for his decompensation and hospital admissions. Patient told residential mortgage underwriter that he does use cocaine intermittently but only 5 dollars worth. Patient now wants discharge and signed a 3 day notice. Patient not disclosing much so will keep him to monitor Hospital course: Patient likely at baseline; guarded, does not want to talk this wants to discharge Impression: Patient's symptoms are at baseline; it is residential mortgage underwriter's opinion that what he needs is an additional antipsychotic medication which he refuses. Without this paranoid delusions will very likely persist and he will continue to intermittently decompensate (using cocaine is likely at least in part, triggered by ongoing need to cope with paranoia/AH) Plan: Three day notice Q 15 minute checks Continue home medication regimen Patient educated on: diagnosis Informed Consent: understands, does not understand and further education needed Reason for continued inpatient stay Substantial Risk for: stable for discharge Time Spent With Patient Time: Total time managing care of this patient today ____ minutes.
--- NOTE | 2025-07-24 00:32 | PC.NURSE ---
Pt refused HS meds at 2100, irritable and sleeping all evening. He later came out to request for his meds at 0020. Took all HS meds @0030.
--- NOTE | 2025-07-24 10:02 | P.PNPSI_ITS ---
Subjective Subjective Date of Service: 07/24/25 Reason For Visit: Schizoaffective d/o, antisocial personality Interim History: Patient is isolative in his room. Resistive to care. Intermittent adherence to medications. Difficult to engage. Appears internally preoccupied. Denies SI/HI/AVH. Review of Systems Review of Systems Unobtainable due to patient's cooperation Mental Status Exam Mental Status Exam Narrative: Pt is alert and oriented; behavior is guarded, calm; patient is not in distress; dressed in hospital attire; bald, adequate hygiene; mood is described as I want to go home and affect downcast; eye contact appropriate; Speech is normal rate, volume and prosody and not pressured; some psychomotor retardation present; thought process is organized and goal directed but concrete; Thought content is on upsetting into action at ED; on expressed paranoid ideations; denies any SI/HI. Acknowledges AH; Patients insight and judgment impaired Diagnostics Vital Signs (24Hr): BMI result Body Mass Index 25.9 Medications Medications Current Medications Acetaminophen (Acetaminophen 325 Mg Tablet) 650 mg PO Q6H PRN PRN Reason: Headache/Pain, Scale 1-10 Al Hydroxide/Mg Hydroxide (Magnesium Hydrox/Alum Hydrox 30 Ml Oral.Susp) 30 ml PO Q6H PRN PRN Reason: Heartburn/Nausea Atorvastatin Calcium (Atorvastatin Calcium 10 Mg Tablet) 10 mg PO BEDTIME [facility] Last Admin: 07/24/25 00:31 Dose: 10 mg Chlorpromazine HCl (Chlorpromazine Hcl 25 Mg Tablet) 50 mg PO TID PRN PRN Reason: agitation/psychosis Clonidine HCl (Clonidine Hcl 0.1 Mg Tablet) 0.1 mg PO BID@0900,1300 [facility]; Protocol Last Admin: 07/24/25 09:47 Dose: Not Given Divalproex Sodium (Divalproex Sodium 500 Mg Tablet.Dr) 1,500 mg PO BEDTIME [facility] Last Admin: 07/24/25 00:29 Dose: 1,500 mg Hydroxyzine HCl (Hydroxyzine Hcl 25 Mg Tablet) 25 mg PO Q6H PRN PRN Reason: mild anxiety Levothyroxine Sodium (Levothyroxine Sodium 75 Mcg Tablet) 75 mcg PO DAILY@0600 [facility] Last Admin: 07/24/25 09:46 Dose: Not Given [place] Carbonate ([place] Carbonate Er 450 Mg Tablet.Er) 900 mg PO BEDTIME [facility] Last Admin: 07/24/25 00:31 Dose: 900 mg Magnesium Hydroxide (Milk Of Magnesia 30 Ml Oral.Susp) 30 ml PO DAILY PRN PRN Reason: Constipation Nicotine Polacrilex (Nicotine Polacrilex 2 Mg Gum) 4 mg BUCCAL Q2H PRN PRN Reason: Nicotine Cravings Last Admin: 07/22/25 21:33 Dose: 4 mg Olanzapine (Olanzapine 10 Mg Tablet) 30 mg PO BEDTIME [facility] Last Admin: 07/24/25 00:30 Dose: 30 mg Allergies Allergies Allergy/AdvReac Type Severity Reaction Status Date / Time quetiapine (From SEROQUEL) Allergy Severe ANAPHYLAXIS Verified 07/15/25 19:19 haloperidol (HALOPERIDOL) Allergy Intermediate SWELLING Verified 07/15/25 19:19 trazodone Allergy Unknown Verified 07/15/25 19:19 Assessment & Plan Assessment & Plan (1) Schizoaffective disorder: Qualifiers: Schizoaffective disorder type: unspecified Qualified Code(s): F25.9 - Schizoaffective disorder, unspecified Status: Acute Code(s): F25.9 - Schizoaffective disorder, unspecified (2) Antisocial personality disorder: Status: Acute Code(s): F60.2 - Antisocial personality disorder (3) Cocaine use disorder: Status: Acute Code(s): F14.10 - Cocaine abuse, uncomplicated Plan HPI: Patient is a 34-year-old male with history of schizoaffective disorder, bipolar type and cocaine use disorder, who presents for dysregulated behavior in the community following medication non adherence and crack cocaine use; UDS AH positive for cocaine and fentanyl. Patient reports that he used cocaine, a rare admission for patient. He says he was unable to sleep so went to the hospital. At the hospital he wanted to leave but was not allowed to; collateral reports that patient made verbal threats to staff and spit at staff; he was forced to give blood work and sent for this admission. Patient endorses AH however he is guarded about other aspects of his symptoms and just says he wants to discharge. Currently denies SI Formulation/clinical reasoning: Patient with similar presentation to past admissions. He acknowledges AH but will not discuss other symptoms. UDS positive for cocaine which has been always suspected, sometimes confirmed and which seems to be the consistent trigger for his decompensation and hospital admissions. Patient told pattern chart writer that he does use cocaine intermittently but only 5 dollars worth. Patient now wants discharge and signed a 3 day notice. Patient not disclosing much so will keep him to monitor Plan: Three day notice Q 15 minute checks Continue home medication regimen 07/24: continue current management and treatment plan. Encourage adherence and milieu engagement. Reason for continued inpatient stay Substantial Risk for: inability to function and rapid decompensation Time Spent With Patient Time: Total time managing care of this patient today ____ minutes.
[2025-07-25 08:00] VITALS: RESP 14
--- NOTE | 2025-07-25 09:32 | P.PNPSI_ITS ---
Subjective Subjective Date of Service: 07/25/25 Reason For Visit: Schizoaffective d/o, antisocial personality Interim History: Patient is isolated in his room. Resistive to care. He takes his medications but first usually refuses them then comes out and asks for them later at night. Very difficult to engage. Guarded. Paranoid. Says he has not had contact with his sister which he identifies as the social support person outside the hospital. Appears internally preoccupied. Denies SI/HI/AVH. Review of Systems Review of Systems Unobtainable due to patient's cooperation Mental Status Exam Mental Status Exam Narrative: Pt is alert and oriented; behavior is guarded, calm; patient is not in distress; dressed in hospital attire; bald, adequate hygiene; mood is described as I want to go home and affect downcast; eye contact appropriate; Speech is normal rate, volume and prosody and not pressured; some psychomotor retardation present; thought process is organized and goal directed but concrete; Thought content is on upsetting into action at ED; on expressed paranoid ideations; denies any SI/HI. Acknowledges AH; Patients insight and judgment impaired Diagnostics Vital Signs (24Hr): BMI result Body Mass Index 25.9 Medications Medications Current Medications Acetaminophen (Acetaminophen 325 Mg Tablet) 650 mg PO Q6H PRN PRN Reason: Headache/Pain, Scale 1-10 Al Hydroxide/Mg Hydroxide (Magnesium Hydrox/Alum Hydrox 30 Ml Oral.Susp) 30 ml PO Q6H PRN PRN Reason: Heartburn/Nausea Atorvastatin Calcium (Atorvastatin Calcium 10 Mg Tablet) 10 mg PO BEDTIME COUNTS INCLUDE 234 BEDS AT THE [facility] Last Admin: 07/24/25 23:37 Dose: 10 mg Chlorpromazine HCl (Chlorpromazine Hcl 25 Mg Tablet) 50 mg PO TID PRN PRN Reason: agitation/psychosis Clonidine HCl (Clonidine Hcl 0.1 Mg Tablet) 0.1 mg PO BID@0900,1300 COUNTS INCLUDE 234 BEDS AT THE [facility]; Protocol Last Admin: 07/24/25 13:30 Dose: Not Given Divalproex Sodium (Divalproex Sodium 500 Mg Tablet.) 1,500 mg PO BEDTIME COUNTS INCLUDE 234 BEDS AT THE [facility] Last Admin: 07/24/25 23:36 Dose: 1,500 mg Hydroxyzine HCl (Hydroxyzine Hcl 25 Mg Tablet) 25 mg PO Q6H PRN PRN Reason: mild anxiety Levothyroxine Sodium (Levothyroxine Sodium 75 Mcg Tablet) 75 mcg PO DAILY@0600 COUNTS INCLUDE 234 BEDS AT THE [facility] Last Admin: 07/25/25 06:23 Dose: Not Given [place] Carbonate ([place] Carbonate Er 450 Mg Tablet.Er) 900 mg PO BEDTIME COUNTS INCLUDE 234 BEDS AT THE [facility] Last Admin: 07/24/25 23:36 Dose: 900 mg Magnesium Hydroxide (Milk Of Magnesia 30 Ml Oral.Susp) 30 ml PO DAILY PRN PRN Reason: Constipation Nicotine Polacrilex (Nicotine Polacrilex 2 Mg Gum) 4 mg BUCCAL Q2H PRN PRN Reason: Nicotine Cravings Last Admin: 07/22/25 21:33 Dose: 4 mg Olanzapine (Olanzapine 10 Mg Tablet) 30 mg PO BEDTIME COUNTS INCLUDE 234 BEDS AT THE [facility] Last Admin: 07/24/25 23:37 Dose: 30 mg Allergies Allergies Allergy/AdvReac Type Severity Reaction Status Date / Time quetiapine (From SEROQUEL) Allergy Severe ANAPHYLAXIS Verified 07/15/25 19:19 haloperidol (HALOPERIDOL) Allergy Intermediate SWELLING Verified 07/15/25 19:19 trazodone Allergy Unknown Verified 07/15/25 19:19 Assessment & Plan Assessment & Plan (1) Schizoaffective disorder: Qualifiers: Schizoaffective disorder type: unspecified Qualified Code(s): F25.9 - Schizoaffective disorder, unspecified Status: Acute Code(s): F25.9 - Schizoaffective disorder, unspecified (2) Antisocial personality disorder: Status: Acute Code(s): F60.2 - Antisocial personality disorder (3) Cocaine use disorder: Status: Acute Code(s): F14.10 - Cocaine abuse, uncomplicated Plan HPI: Patient is a 34-year-old male with history of schizoaffective disorder, bipolar type and cocaine use disorder, who presents for dysregulated behavior in the community following medication non adherence and crack cocaine use; UDS AH positive for cocaine and fentanyl. Patient reports that he used cocaine, a rare admission for patient. He says he was unable to sleep so went to the hospital. At the hospital he wanted to leave but was not allowed to; collateral reports that patient made verbal threats to staff and spit at staff; he was forced to give blood work and sent for this admission. Patient endorses AH however he is guarded about other aspects of his symptoms and just says he wants to discharge. Currently denies SI Formulation/clinical reasoning: Patient with similar presentation to past admissions. He acknowledges AH but will not discuss other symptoms. UDS positive for cocaine which has been always suspected, sometimes confirmed and which seems to be the consistent trigger for his decompensation and hospital admissions. Patient told software writer that he does use cocaine intermittently but only 5 dollars worth. Patient now wants discharge and signed a 3 day notice. Patient not disclosing much so will keep him to monitor Plan: Three day notice Q 15 minute checks Continue home medication regimen 07/24: continue current management and treatment plan. Encourage adherence and milieu engagement. 07/25: continue current management and treatment plan. Reason for continued inpatient stay Substantial Risk for: inability to function and rapid decompensation Time Spent With Patient Time: Total time managing care of this patient today ____ minutes.
--- NOTE | 2025-07-26 09:21 | PM.PSYDC ---
DS: Providers Provider Date of Service: 07/26/25 Date of admission: 07/21/25 14:05 Date of discharge: 07/26/25 Primary care physician: Unknown Physician Attending physician on admission: Sin Burgos Consults: 07/21/25 14:11 Consult to Hospitalist Routine Comment: Consulting Provider: [facility] [place] Hospitalists Reason For Exam: Transfer pt Attending physician on discharge: Sin Burgos DS: Diagnosis Discharge Diagnosis (1) Schizoaffective disorder: Status: Acute (2) Antisocial personality disorder: Status: Acute (3) Cocaine use disorder: Status: Acute DS: Medications Discharge Medications Home Medications: Home Medications ?Medication ?Instructions ?Recorded ?Confirmed atorvastatin 10 mg tablet 10 mg PO BEDTIME 12/17/24 07/21/25 levothyroxine 75 mcg tablet 75 mcg PO DAILY@0600 disorder of 12/25/24 07/21/25 thyroid gland olanzapine 15 mg tablet 30 mg PO BEDTIME 01/12/25 07/21/25 divalproex 500 mg tablet,delayed 1,500 mg PO BEDTIME 01/14/25 07/21/25 release lithium carbonate 450 mg 900 mg PO BEDTIME 01/14/25 07/21/25 tablet,extended release Mental Status Exam Mental Status Exam Narrative: Pt is alert and oriented; behavior is guarded, calm; patient is not in distress; adequate hygiene and grooming; bald, adequate hygiene; mood is described as euthymic; eye contact adequate; Speech is normal rate, volume and prosody and not pressured; some psychomotor retardation present; thought process is organized and goal directed but concrete; Thought content is on discharge; no expressed paranoid ideations; denies any SI/HI. Denies AVH Patients insight and judgment impaired but at baseline and adequate DS: Summary Hospital Course Hospital Course: HPI: Patient is a 34-year-old male with history of schizoaffective disorder, bipolar type and cocaine use disorder, who presents for dysregulated behavior in the community following medication non adherence and crack cocaine use; UDS AH positive for cocaine and fentanyl. Patient reports that he used cocaine, a rare admission for patient. He says he was unable to sleep so went to the hospital. At the hospital he wanted to leave but was not allowed to; collateral reports that patient made verbal threats to staff and spit at staff; he was forced to give blood work and sent for this admission. Patient endorses AH however he is guarded about other aspects of his symptoms and just says he wants to discharge. Currently denies SI Formulation/clinical reasoning: Patient with similar presentation to past admissions. He acknowledges AH but will not discuss other symptoms. UDS positive for cocaine which has been always suspected, sometimes confirmed and which seems to be the consistent trigger for his decompensation and hospital admissions. Patient told manual writer that he does use cocaine intermittently but only 5 dollars worth. Patient now wants discharge and signed a 3 day notice. Patient not disclosing much so will keep him to monitor Hospital course: Once on the unit, patient had returned to baseline. He remained guarded as usual, not wanting to talk not revealing much just wanting to discharge home. He immediately signed a 3 day notice. As usual, patient refused any medication changes; he refused labs including hemoglobin A1c and lipid panel. Patient remained isolative, mostly staying in bed and keeping to himself. He remained in good behavioral and impulse control throughout his time in the unit. Patient's 3 day notice came due. Patient will likely again decompensate or use cocaine again, which seems to precipitate decompensation. This is an ongoing issue that will not change with longer inpatient stay as patient refuses medication changes. Patient is at baseline. Patient is not in imminent risk for harm to self or others and appropriate to return to the community for treatment. Request for discharge honored. Impression: it is manual writer's opinion that patient needs additional antipsychotic medication (which he refuses) in order to address his ongoing paranoid delusional thinking. Without antipsychotic medication adjustments his paranoid delusions will persist and he will continue to intermittently decompensate (patient's cocaine abuse, which exacerbates his symptoms, is likely at least partially triggered by ongoing need to cope with paranoia/AH) Time spent discussing smoking cessation with patient: 3 to 10 minutes Status at Discharge Functional status at discharge: independent ambulation Time Spent with Patient Time attestation: Total time managing care of this patient today _40___ minutes. Time spent: Greater than 30 minutes Specific discharge activities: Met with patient; discussed with team; charting; Discharge Plan Discharge Anticipated Discharge Date/Time: 07/26/25 11:30 Patient Disposition: Home, Self-Care Discharge Diagnosis: Schizoaffective disorder, bipolar type Referrals: Dr. Sreekanth Hurtado (psychiatry): [facility] [Other] - 08/03/25 10:20 am Referral Note: Hospital discharge appointment with psychiatric provider Appointment in person at [facility] Physician,Unknown J [Primary Care Provider, Medical] - 1 Week Discharge Medications: Continued divalproex 500 mg tablet,delayed release (DR/EC) 1,500 mg PO BEDTIME lithium carbonate 450 mg tablet extended release 900 mg PO BEDTIME atorvastatin 10 mg tablet 10 mg PO BEDTIME levothyroxine 75 mcg tablet 75 mcg PO DAILY@0600 olanzapine 15 mg tablet 30 mg PO BEDTIME Discharge Orders: Discharge Order (Routine); Ordered 07/26/25 Ordered By: Sin Burgos Diet: Regular diet Activity on Discharge: As tolerated Stand Alone Forms: Patient Portal Discharge page Print Language: Italian Care Plan Goals: Maintain mood and safe behaviors Take medications as prescribed Continue to pursue sobriety Practice coping skills Continue with outpatient providers and reach out to them as needed Health Concerns: Mood stability and behaviors Sobriety Plan of Treatment: Follow up with your PCP, psychiatric provider and other outpatient providers regarding above concerns Take medications as prescribed Assessment: Risk assessment at time of discharge:? Patient was interviewed prior to discharge and found to be fully oriented and without any SI or HI. Patient has improved judgment and wants to continue treatment. Patient is not in imminent risk of harm to self or others and has a safety plan that includes presenting to the closest ER or calling 911 if feeling unsafe.? Patient has been observed closely by nursing and unit staff throughout admission; patient has not engaged in any behaviors that suggest dangerousness to self or others and has demonstrated appropriate behaviors and impulse control
== END 2025-07-26 11:10 | disposition home or self-care (01) | DRG 885 ==
PROVIDERS: Admitting Provider Psychiatry & Neurology Psychiatry; Visit Provider Psychiatry & Neurology Psychiatry
DX: F25.9 Schizoaffective disorder, unspecified (principal); F60.2 Antisocial personality disorder; F14.10 Cocaine abuse, uncomplicated; Z79.899 Other long term (current) drug therapy

== ENCOUNTER → 2025-07-21 14:05 | Outpatient (BNV) | payer MEDICARE, MEDICAID, SELFPAY | PROVIDERS: Admitting Provider Psychiatry & Neurology Psychiatry; Visit Provider Nurse Practitioner Family | DX: F25.9 Schizoaffective disorder, unspecified (principal) | CPT/HCPCS: 99221 ==

== ENCOUNTER → 2025-07-21 14:05 | Outpatient (BNV) | payer MEDICARE, MEDICAID, SELFPAY | PROVIDERS: Admitting Provider Psychiatry & Neurology Psychiatry; Visit Provider Psychiatry & Neurology Psychiatry | DX: F60.2 Antisocial personality disorder (principal); F25.0 Schizoaffective disorder, bipolar type; F14.10 Cocaine abuse, uncomplicated | CPT/HCPCS: 90792; 99231; 99232; 99239 ==

== ENCOUNTER 2025-10-03 17:30 | Emergency (ER) | payer MEDICARE, MEDICAID, SELFPAY ==
[2025-10-03 17:38] VITALS: BP 126/59; PULSE 136; RESP 20; TEMP 37.2; O2SAT 96; BMI 29.6
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
--- NOTE | 2025-10-03 17:40 | ECG_ITS ---
Test Reason : MED CLEARANCE Blood Pressure : */* mmHG Vent. Rate : 76 BPM Atrial Rate : 76 BPM P-R Int : 146 ms QRS Dur : 96 ms QT Int : 384 ms P-R-T Axes : 48 -29 32 degrees QTcB Int : 432 ms Normal sinus rhythm Normal EKG When compared with ECG of 08-Jul-2025 09:45, No significant change was found Referred By: Tiana Segovia Electronically Signed By: MAEVE DE OLIVEIRA
--- OUTSIDE RECORDS SUMMARY | 2025-10-03 19:20 | XMS_ITS | Clinical Summary ---
Author Organization [facility] Address [address] [place] [address] Phone Care Team Providers Care Party Director Name Role Phone Sreekanth Hurtado MD Primary Care Provider [phone] Allergies Active Allergy Reactions Criticality Noted Date Comments Clozapine Neutropenia Medium 09/30/2024 Droperidol 11/17/2024 ?acute dystonic reaction Haloperidol Unknown 09/30/2024 many years ago...they had to give me Benadryl and I had to sit upright by a window Pork Derived (Porcine) 07/20/2025 Pt states he doesn't eat pork Quetiapine Unknown 09/30/2024 Trazodone Unknown 09/30/2024 Mentioned in pt's med list from [facility] Medications atorvastatin (LIPITOR) 10 mg tablet Take [...] hours if needed for wheezing. 1 each Active nicotine polacrilex (NICORETTE) [address] 1 each (4 mg total) into mouth between cheek and gum every 1 (one) hour if needed for smoking cessation (patient needs while inpatient and in the ED - smokes well over a pack per day). Active Encounters Date Type Department Care Team Description 08/25/2025 3:32 PM EST - 08/25/2025 7:47 PM [facility] Emergency [address] [place] [phone] Kevin Polanco MD Goebel, Mathew, MD Auditory hallucinations (Primary Dx) Discharge Disposition: Home or Self Care 08/24/2025 5:57 PM EST - 08/24/2025 8:[address] [phone] Stephanie Valentin MD Auditory hallucinations (Primary Dx); JOSÉ (generalized anxiety disorder); Social discord; Paranoia (CMS/HCC V24, CMS/HCC V28); Delusions (CMS/HCC V24, CMS/HCC V28) Discharge Disposition: Home or Self Care 08/11/2025 3:59 PM EST - 08/11/2025 4:44 PM [facility] Emergency [address] [place] [phone] Anxiety (Primary Dx); Drug-seeking behavior Discharge Disposition: Left Against Medical Advice 07/19/2025 1:08 PM EDT - 07/21/2025 1:51 PM EDT [address] [place] [address] Kevin Polanco MD Grabowski, Walter, MD Killelea, Alison G, MD Amardey-Wellingt on, Aaron, MD Kokkinos, Erika, MD Wyman, Tim, MD Depression with suicidal ideation (Primary Dx); Homicidal ideation Discharge Disposition: Short Term Hospital from Last 3 Months Medical History Medical History Date Comments Disease of thyroid gland Bipolar 1 disorder ([facility] V24, [facility] V28) Schizo affective schizophrenia ([facility] V24, [facility] V28) Bipolar 1 disorder ([facility] V24, [facility] V28) Anxiety Anxiety Social History Tobacco Use [...] Orientation Straight 10/29/2024 10 :30 PM EST Last Filed Vital Signs Vital Sign Reading Time Taken Comments Blood Pressure 108/71 08/25/2025 6:50 PM EST Pulse 71 08/25/2025 6:50 PM EST Temperature 36.6 C (97.9 F) 08/25/2025 6:50 PM EST Respiratory Rate 18 08/25/2025 6:50 PM EST Oxygen Saturation 97% 08/25/2025 6:50 PM EST Inhaled Oxygen Concentration - - Weight 81.6 kg (180 lb) 08/25/2025 3:55 PM EST Height 180.3 cm (5' 11 ) 08/25/2025 3:55 PM EST Body Mass Index 25.1 08/25/2025 3:55 PM EST Plan of Treatment Health Maintenance Due Date [...] Screening 09/09/2022 Depression Screening 10/07/2024 COVID-19 Vaccine (1 - 2024-2 6 season) 2025 Influenza Vaccine (#1) 2025 RSV [...] Diagnosis Comments CBC WITH AUTO DIFFERENTIAL STAT 08/24/2025 6:31 PM EST METHADONE SCREEN, URINE STAT 08/24/2025 6:31 PM EST PHENCYCLIDINE, URINE STAT 08/24/2025 6:31 PM EST BUPRENORPHINE SCREEN, URINE STAT 08/24/2025 6:31 PM EST DRUG ABUSE SCREEN 8A PANEL, URINE STAT 08/24/2025 6:31 PM EST SALICYLATE LEVEL STAT 08/24/2025 6:31 PM EST ACETAMINOPHEN LEVEL STAT 08/24/2025 6 :31 PM EST ETHANOL STAT 08/24/2025 6:31 PM EST COMPREHENSIVE METABOLIC PANEL STAT 08/24/2025 6:31 PM EST CBC AND DIFFERENTIAL STAT 08/24/2025 6:31 PM EST METHADONE SCREEN, URINE STAT 07/19/2025 5:08 PM [...] AND DIFFERENTIAL STAT 07/19/2025 2:54 PM EDT from Last 3 Months Results * (ABNORMAL) Drug abuse screen 8a panel, urine (08/24/2025 6:31 PM EST) Only the most recent of2 resultswithin the time period is included. Amphetamine Screen, Ur Negative Negative 08/24/2025 7:23 PM EST [facility] Comment:Certain OTC medicati ons containing ephedrine, phenylephrine, pseudoephedrine and phenylpropanolamine can cause false positive results. Barbiturate Screen, Ur Negative Negative 08/24/2025 7:23 PM EST [facility] Benzodiazepine Screen, Ur Negative Negative 08/24/2025 7:23 PM [facility] Cocaine Screen, Ur Negative Negative 2024 7:23 PM [facility] Opiate Screen, Ur Negative Negative 025 7:23 PM [facility] Cannabinoid (THC) Screen, Ur Positive(A ) Negative 08/24/2025 7:23 PM EST [facility] Comment:Specimens from patie nts taking pantoprazole sodium (Protonix) have been shown to produce false positive results. Oxycodone Screen, Ur Negative Negative 08/07 7:23 PM [facility] Fentanyl, Ur Negative Negative 08/24/2025 7:23 PM [facility] Urine Urine specimen obtained by clean catch procedure / Unknown Non-blood Collection / Unknown 08/24/2025 6:31 PM EST 08/24/2025 6:50 PM EST [facility] - 08/24/2025 7:23 PM EST Assay cutoffs: Amphetamines 1000 ng/mL Barbiturates 200 ng/mL Benzodiazepines 200 ng/mL Cocaine 300 ng/mL Fentanyl 1 ng/mL Opiates 300 ng/mL Oxycodone 100 ng/mL THC 50 ng/mL Semi-quantitative assay for screening purposes only. Unconfirmed screening result should not be used for non-medical purposes. *ALTERNATE METHOD CONFIRMATION DONE UPON REQUEST ONLY* us Stephanie Valentin MD LAB URINE ORDERABLES Final Resul t [facility] [address] [place] [address], * Buprenorphine screen, urine (08/24/2025 6:31 PM EST) Only the most recent of2 resultswithin the time period is included. Buprenorphine Screen Urine Negative Negative 08/24/2025 7:22 PM EST [facility] Urine Urine specimen obtained by clean catch procedure / Unknown Non-blood Collection / Unknown 08/24/2025 6:31 PM EST 08/24/2025 6:50 PM EST Narrative [facility] - 08/24/2025 7:22 PM EST Assay cutoff 5 ng/mL Semi-quantitative assay for screening purposes only. Unconfirmed screening result should not be used for non-medical purposes. *ALTERNATE METHOD CONFIRMATION DONE UPON REQUEST ONLY* Stephanie Valentin MD LAB URINE ORDERABLES Final Resul t Performing Organization Address [facility]/ZIP Co de Phone Number [facility] [address] [place] [address], [place] [phone] * Methadone, urine (08/24/2025 6:31 PM EST) Only the most recent of2 resultswithin the time period is included. [facility] Methadone Screen, Urine Negative Negative 08/24/2025 7:23 PM EST [facility] Comment: Assay cutoff 300 ng/mL Semi-quantitative assay for screening purposes only. Unconfirmed screening result should not be used for non-medical purposes. *ALTERNATE METHOD CONFIRMATION DONE UPON REQUEST ONLY* Urine Urine specimen obtained by clean catch procedure / Unknown Non-blood Collection / Unknown 08/24/2025 6:31 PM EST 08/24/2025 6:50 PM EST Stephanie Valentin MD LAB URINE ORDERABLES Final Resul t [facility] [address] [place] [address], [place] [phone] * (ABNORMAL) CBC auto differential (08/24/2025 6:31 PM EST) Only the most recent of2 resultswithin the time period is included. [facility] WBC 11.0(H) 4.8 - 10.8 K/[facility] HEMETOLOGY METHOD 08/24/2025 7:00 PM [facility] RBC 5.30 4.50 - 5.50 M/[facility] HEMETOLOGY METHOD 08/24/2025 7:00 PM [facility] Hemoglobin 16.4 13.5 - 17.5 g/dL LAB HEMETOLOGY METHOD 08/24/2025 7:00 PM [facility] Hematocrit 47.1 42.0 - 54.0 % LAB HEMETOLOGY METHOD 08/24/2025 7:00 PM [facility] MCV 89.5 79.0 - 98.0 FL LAB HEMETOLOGY METHOD 08/24/2025 7:00 PM [facility] MCH 31.2 27.0 - 32.0 pcg LAB HEMETOLOGY METHOD 08/24/2025 7:00 PM [facility] MCHC 34.8 32.0 - 37.0 g/dL LAB HEMETOLOGY METHOD 08/24/2025 7:00 PM [facility] RDW 12.7 11.0 - 15.0 % LAB HEMETOLOGY METHOD 08/24/2025 7:00 PM [facility] Platelets 238 130 - 400 K/[facility] HEMETOLOGY METHOD 08/24/2025 7:00 PM [facility] MPV 10.5 7.0 - 11.0 FL LAB HEMETOLOGY METHOD 08/24/2025 7:00 PM [facility] NRBC 0.0 <1.0 % LAB HEMETOLOGY METHOD 08/24/2025 7:00 PM [facility] NRBC Absolute 0.00 <0.10 K/[facility] HEMETOLOGY METHOD 08/24/2025 7:00 PM [facility] Neutrophils Relative 57.3 % LAB HEMETOLOGY METHOD 08/24/2025 7:00 PM [facility] Lymphocytes Relative 29.8 % LAB HEMETOLOGY METHOD 08/24/2025 7:00 PM [facility] Monocytes Relative 8.2 % LAB HEMETOLOGY METHOD 08/24/2025 7:00 PM [facility] Eosinophils Relative 3.5 % LAB HEMETOLOGY METHOD 08/24/2025 7:00 PM [facility] Basophils Relative 0.5 % LAB HEMETOLOGY METHOD 08/24/2025 7:00 PM [facility] Immature Granulocytes Relative 0.7 % LAB HEMETOLOGY METHOD 08/24/2025 7:00 PM [facility] Neutrophils Absolute 6.28 1.50 - 7.00 K/mcL LAB HEMETOLOGY METHOD 08/24/2025 7:00 PM [facility] Lymphocytes Absolute 3.26 1.00 - 5.00 K/mcL LAB HEMETOLOGY METHOD 08/24/2025 7:00 PM [facility] Monocytes Absolute 0.90 0.20 - 1.00 K/mcL LAB HEMETOLOGY METHOD 08/24/2025 7:00 PM [facility] Eosinophils Absolute 0.38 0.00 - 0.50 K/mcL LAB HEMETOLOGY METHOD 08/24/2025 7:00 PM [facility] Basophils Absolute 0.05 0.00 - 0.20 K/mcL LAB HEMETOLOGY METHOD 08/24/2025 7:00 PM [facility] Immature Granulocytes Absolute 0.08(H) 0.00 - 0.03 K/mcL LAB HEMETOLOGY METHOD 08/24/2025 7:00 PM [facility] Blood Venous blood specimen / Unknown Venipuncture / Unknown 08/24/2025 6:31 PM EST 08/24/2025 6:50 PM EST us Stephanie Valentin MD LAB BLOOD ORDERABLES Final Resul t Performing Organization Address [facility] de Phone Number [facility] [address] [place] [address], [place] [phone] * Phencyclidine, urine (08/24/2025 6:31 PM EST) Only the most recent of2 resultswithin the time period is included. PCP Scrn, Ur Negative Negative 08/24/2025 7:23 PM EST [facility] Comment: Assay cutoff 25 ng/mL Semi-quantitative assay for screening purposes only. Unconfirmed screening result should not be used for non-medical purposes. *ALTERNATE METHOD CONFIRMATION DONE UPON REQUEST ONLY* Urine Urine specimen obtained by clean catch procedure / Unknown Non-blood Collection / Unknown 08/24/2025 6:31 PM EST 08/24/2025 6:50 PM EST us Stephanie Valentin MD LAB URINE ORDERABLES Final Resul t Performing Organization Address [facility] de Phone Number [facility] [address] [place] [address], [place] [phone] * Ethanol (08/24/2025 6:31 PM EST) Only the most recent of2 resultswithin the time period is included. Ethanol Level <3 0 - 10 mg/dL 08/24/2025 7:37 PM EST [facility] Blood Venous blood specimen / Unknown Venipuncture / Unknown 08/24/2025 6:31 PM EST 08/24/2025 6:50 PM EST us Stephanie Valentin MD LAB BLOOD ORDERABLES Final Resul t Performing Organization Address [facility] Co de Phone Number [facility] [address] [place] [address], [place] [phone] * (ABNORMAL) Acetaminophen level (08/24/2025 6:31 PM EST) Only the most recent of2 resultswithin the time period is included. Acetaminophen Level <2.0(L) 10.0 - 30.0 mcg/mL 08/24/2025 7:29 PM EST [facility] Blood Venous blood specimen / Unknown Venipuncture / Unknown 08/24/2025 6:31 PM EST 08/24/2025 6:50 PM EST us Stephanie Valentin MD LAB BLOOD ORDERABLES Final Resul t Performing Organization Address City/[facility]/ZIP Co de Phone Number [facility] [address] [place] [address], [place] [phone] * Salicylate level (08/24/2025 6:31 PM EST) Only the most recent of2 resultswithin the time period is included. Salicylate Level <3.0 2.0 - 29.0 mg/dL 08/24/2025 7:37 PM EST [facility] Blood Venous blood specimen / Unknown Venipuncture / Unknown 08/24/2025 6:31 PM EST 08/24/2025 6:50 PM EST us Stephanie Valentin MD LAB BLOOD ORDERABLES Final Resul t Performing Organization Address [facility]/ZIP Co de Phone Number [facility] [address] [place] [address], [place] [phone] * (ABNORMAL) Comprehensive metabolic panel (08/24/2025 6:31 PM EST) Only the most recent of2 resultswithin the time period is included. Sodium 143 133 - 145 mmol/L 08/24/2025 7:29 PM [facility] Potassium 4.2 3.5 - 5.5 mmol/L 08/24/2025 7:29 PM [facility] Chloride 106 96 - 110 mmol/L 08/24/2025 7:29 PM EST [facility] CO2 27 21 - 32 mmol/L 08/24/2025 7:29 PM [facility] Anion Gap 10 3 - 11 08/24/2025 7:29 PM [facility] Glucose 100 70 - 100 mg/dL 08/24/2025 7:29 PM [facility] BUN 11 5 - 25 mg/dL 08/24/2025 7:29 PM [facility] Creatinine 0.94 0.70 - 1.30 mg/dL 08/24/2025 7:29 PM [facility] eGFR 108 >=60 mL/min/1. 73m2 08/24/2025 7:29 PM [facility] Comment:Calculation based on the Chronic Kidney Disease Epidemiology Collaboration (CKD-EPI) equation refit without adjustment for race. BUN/Creatinine Ratio 11.7 08/24/2025 7:29 PM [facility] Calcium 9.8 8.5 - 10.5 mg/dL 08/24/2025 7:29 PM [facility] AST (SGOT) 28 10 - 42 unit/L 08/24/2025 7:29 PM [facility] ALT (SGPT) 35 10 - 60 unit/L 08/24/2025 7:29 PM [facility] Alkaline Phosphatase 81 42 - 121 unit/L 08/24/2025 7:29 PM [facility] Total Protein 5.8(L) 6.0 - 8.0 g/dL 08/24/2025 7:29 PM [facility] Albumin 4.4 3.2 - 5.0 g/dL 08/24/2025 7:29 PM [facility] Total Bilirubin 0.3 0.0 - 1.4 mg/dL 08/24/2025 7:29 PM [facility] Blood Venous blood specimen / Unknown Venipuncture / Unknown 08/24/2025 6:31 PM EST 08/24/2025 6:50 PM EST us Stephanie Valentin MD LAB BLOOD ORDERABLES Final Resul t [facility] ([facility]) [facility] [address] [place] [address], [place] [phone] from Last 3 Months Insurance MEDICARE MEDICAID - [place] Care Teams Party Director Relationship Specialty Start Date End Date Sreekanth Hurtado MD [facility] [address] PCP - General Psychiatry 01/01/25
--- NOTE | 2025-10-03 20:28 | MHC.EDTECH ---
pt agreeable to lab work, continues to refuse EKG while also stating he is unable to use the bathroom as everyine is watching me right now. rn aware.
[2025-10-03 20:29] LABS: MANUAL DIFF FLAG NO
[2025-10-03 20:30] LABS: Hematocrit 46.0 % (42.0-52.0); Hemoglobin 16.2 g/dl (14.0-18.0); Imm Gran Abs Auto 0.07 X10*3/uL (0.00-0.03); Imm Gran Pct Auto 0.5 % (0.0-0.4); Lymphocytes Absolute Auto 2.8 X10*3/uL (1.2-4.9); Mean Corpuscular HGB Conc 35.2 g/dl (31.0-36.0); Mean Corpuscular Hemoglobin 31.7 pg (27.0-33.0); Mean Corpuscular Volume 90.0 fL (80.0-98.0); NRBC Abs Auto 0.000 X10*3/uL (0.0-0.012); NRBC Pct Auto 0.0 /100WBC (0.0-0.2); Platelet Count 235 X10*3/uL (160-400); Red Blood Count 5.11 X10*6/uL (4.60-5.80); White Blood Count 12.8 X10*3/uL (4.8-10.8)
[2025-10-03 20:39] LABS: Lithium 0.42 mmol/L (0.60-1.20)
[2025-10-03 20:48] LABS: Acetaminophen LAB < 3 mcg/mL (<30); Alanine Aminotransferase 33 U/L (0-40); Albumin Level 4.7 g/dL (3.5-5.0); Alkaline Phosphatase 64 U/L (39-117); Anion Gap 13 (12-20); Aspartate Amino Transferase 24 U/L (5-37); Blood Urea Nitrogen 11 mg/dL (9-16); Calcium 9.4 mg/dL (8.4-10.2); Carbon Dioxide 25 mmol/L (22-29); Chloride 109 mmol/L (96-108); Creatinine Clr Calc Pharmacy 150.6; Estimated Glomerular Filt Rate > 60; Potassium 3.8 mmol/L (3.3-5.1); Salicylate < 5.0 mg/dL (15-30); Sodium 143 mmol/L (135-145); Total Protein 6.9 g/dL (6.5-8.0)
[2025-10-03 22:09] VITALS: BP 95/58; PULSE 72; RESP 16; TEMP 36.2; O2SAT 94
[2025-10-03 22:35] VITALS: BP 95/55; PULSE 70; RESP 16
--- NOTE | 2025-10-03 23:44 | PC.NURSE ---
Patient sleeping, respirations even and non labored, appears comfortable
[2025-10-04 00:54] LABS: Appearance Urine Clear; Glucose Urine UA Negative (Negative); PH 6.0 (5.0-9.0); Specific Gravity - Urine >= 1.030 (1.005-1.025)
[2025-10-04 01:10] LABS: Cannabinoid Screen Urine POSITIVE (Not Detect)
--- NOTE | 2025-10-04 02:40 | PC.NURSE ---
patient medicated w/ tylenol for c/o dental pain
--- NOTE | 2025-10-04 03:52 | PC.NURSE ---
Patient has been up and ambulatory, making needs known, pacing. patient now resting listening to music on headphones.
[2025-10-04 06:33] VITALS: PULSE 83; RESP 16; TEMP 36.2; O2SAT 97
== END 2025-10-04 09:17 | disposition home or self-care (01) ==
PROVIDERS: Physician Assistant Medical; Emergency Provider Emergency Medicine
DX: F25.9 Schizoaffective disorder, unspecified (principal); H53.8 Other visual disturbances; Z79.899 Other long term (current) drug therapy
CPT/HCPCS: 36415; 80053; 80143; 80164; 80178; 80179; 80307; 81003; 85025; 93005; 99285; S9485

== ENCOUNTER → 2025-10-03 17:40 | Outpatient (BNV) | payer MEDICARE, MEDICAID, SELFPAY | PROVIDERS: Emergency Provider Emergency Medicine; Visit Provider Internal Medicine | DX: Z13.6 Encounter for screening for cardiovascular disorders (principal) | CPT/HCPCS: 93010 ==